=== PATIENT | female | born 1945 | race Caucasian/White ===

== ENCOUNTER 2017-09-07 08:22 | Emergency (ER) | payer OTHER, SELFPAY ==
[2017-09-07 08:24] VITALS: BP 169/93; PULSE 89; RESP 16; TEMP 36.5; O2SAT 97; BMI 31.1
[2017-09-07 09:07] LABS: Absolute Neutrophil Count 5.4 X10^3/uL (2.0-7.7); Basophil# 0.04 X10^3/uL; Basophil% 0.6 % (0-1); Eosinophil# 0.18 X10^3/uL; Eosinophils% 2.5 % (0-5); Hemoglobin 13.8 g/dl (12.0-15.0); Lymphocyte % 14.1 % (19-41); Mean Corp Hgb Conc 32.9 g/gl (32-36); Mean Corpuscular Hgb 29.3 pg (27.0-32.0); Mean Corpuscular Volume 89.2 fL (81-99); Mean Platelet Vol. 9.7 fl (6.2-12.0); Monocyte% 7.1 % (0-10); Neutrophil # 5.35 X10^3/uL (2.7-7.7); Neutrophil % 75.4 % (47-70); POSITIVE COUNT NO; POSITIVE DIFFERENTIAL NO; POSITIVE MORPHOLOGY NO; Platelet Count 365 K/mm3 (150-450); RBC Distribution Width CV 13.9 % (11.6-14.6); RBC Distribution Width SD 45.2 fl (35.1-43.9); Red Blood Count 4.71 M/mm3 (4.2-5.4); White Blood Count 7.1 K/mm3 (4.4-11.0)
[2017-09-07] MEDS: 0.9% Normal Saline 1,000 ML 1000 ML IV (09:20)
[2017-09-07 09:21] LABS: Anion Gap 7 (5-15); BUN 16 mg/dL (7-18); BUN/Creat Ratio 16.2 RATIO (10-20); Calcium,Total 8.9 mg/dL (8.5-10.1); Chloride 109 mmol/L (98-107); Creatinine, Serum 0.99 mg/dL (0.55-1.02); EST Glomerular Filtration Rate 59 mL/min (>60); Est Glom Filt Rate - Afr Amer 71 mL/min (>60); Estimated Creatinine Clearance 42.42 ml/min; Glucose 78 mg/dL (74-106); Sodium Level 141 mmol/L (136-145)
--- NOTE | 2017-09-07 09:21 | ED.RN ---
per verbal order of dr. srinivasan, immodium to be held until after stool sample obtained.
--- NOTE | 2017-09-07 09:30 | ED.VISSUMM ---
- ER Visit Summary Date of Service: 09/07/17 Chief Complaint: [Diarrhea] History of Present Illness: The patient is a 71 F [presents to the emergency department with diarrhea that started 4 days ago. Patient describes very frequent stools. Patient initially started taking Imodium for her watery stools and noticed that soon after there was some black discoloration to the stool almost coffee ground like. Patient then called the pharmacy and was told to use Imodium instead which she started doing and she states that that seems to have helped the diarrhea since yesterday. Patient denies any fevers. She denies recent antibiotic usage. She denies any recent travel. Patient denies eating any undercooked foods. Patient does not have a history of C. difficile. Patient's last colonoscopy was in June and patient was told she had diverticulosis. Patient denies any bright red blood per rectum.] Physical Examination: [HEENT-PERRLA, EOMI. Cranial nerves II through XII grossly intact. TMs clear. Mucous membranes moist. No adenopathy. Cardiovascular-regular rate and rhythm without murmur or ectopy Lungs-clear to auscultation, chest wall stable without crepitus or subcu emphysema Abdomen-normoactive bowel sounds, soft, nontender, no rebound or rigidity, no peritoneal signs. Extremities-intact ?4, normal range of motion, normal pulses, atraumatic] Test Results: [CBC with differential obtained showed a white count of 7.1, hemoglobin 13.8, hematocrit 42, platelets 365. Chemistries unremarkable. Stool culture, enteric pathogens, and C. difficile ordered however patient unable to give a stool sample in the emergency department.] Emergency Department Course and Treatment: [Patient received a liter normal same fluid bolus] Treatment Plan: [Patient will be given a lab slip to bring in a stool sample. Patient given a prescription for Lomotil] Disposition: Discharged to home in stable condition [. Patient to return if fever, worsening abdominal pain, dehydration, or condition should worsen in any way.] Impression: [Diarrhea-etiology uncertain] This note was generated with [employer] dictation software. It may contain incorrect words, spelling, and punctuation that were not noted in review of the chart prior to signing ED Disposition - Plan for ED Patient: Chief Complaint: Diarrhea Referrals: Chevy Matthew [Primary Care Provider] -
--- NOTE | 2017-09-07 09:33 | ED.DEP ---
ED Disposition - Plan for ED Patient: Chief Complaint: Diarrhea Instructions: ED Gastroenteritis Report Pend Prescriptions: Diphenoxylate/Atrop [Lomotil] 1 tab PO 4X/DAY #20 tab Referrals: Chevy Matthew [Primary Care Provider] - 3-5 Days
[2017-09-07] MEDS: Loperamide 2 MG Capsule 4 MG PO (10:20)
== END 2017-09-07 10:23 | disposition home or self-care (01) ==
PROVIDERS: Emergency Provider Emergency Medicine; Family Provider Family Medicine; PCP Family Medicine
DX: R19.7 Diarrhea, unspecified (principal); I10 Essential (primary) hypertension; E78.00 Pure hypercholesterolemia, unspecified; M10.9 Gout, unspecified; K57.90 Diverticulosis of intestine, part unspecified, without perforation or abscess without bleeding
CPT/HCPCS: 80048; 82274; 85025; 87177; 87209; 87493; 87506; 99284; J7030; A4216

== ENCOUNTER 2018-03-25 15:24 | Inpatient (IN) | payer MEDICARE, BC, SELFPAY ==
[2018-03-25] VITALS (14 sets, daily range): BP systolic 133–193; BP diastolic 71–81; PULSE 78–124; RESP 20–34; TEMP 36.6–37.4; O2SAT 83–97; BMI 31.1; BMI 31.4
--- NOTE | 2018-03-25 15:34 | CT_ITS ---
STUDY: CTA CHEST REASON FOR EXAM: Female, 72 years old. Shortness of breath and cough x3 days RADIATION DOSAGE (If Supplied By Facility): CTDIvol = ( 13.67 ) mGy, DLP = ( 494.43 ) mGycm TECHNIQUE: The examination was performed with the intravenous administration of 100 ml of Isovue 370 contrast material. Post-processing of the angiographic images was performed, with multiplanar reformation and 3D reconstruction. Individualized dose optimization techniques were used for this CT. COMPARISON: None. FINDINGS: Multiple Occlusive filling defects noted within the lobar and segmental branches bilaterally, right greater than left. Normal enhancement of the bilateral peripheral pulmonary arteries. Normal thoracic aorta and visualized great vessels. There is no demonstrated aortic dissection. Normal heart and pericardium. Calcific coronary artery disease. Normal mediastinum. Normal hilar regions. Normal visualized trachea and bronchi. The lungs are well expanded. Normal pulmonary parenchyma. Normal pleura. 8 x 15 mm spiculated right perihilar lesion. Normal chest wall structures. Normal osseous structures. Normal visualized upper abdomen. CT/CTA Chest W/WO Contrast IMPRESSION: Extensive bilateral pulmonary emboli N.B. : The above information has been verbally conveyed by Eric Vela MD to Devin Evans MD, on 03/25/2018 16:59:27 (ET). Electronically Signed: Eric Vela MD at 16:51 EST , Service support ,
--- NOTE | 2018-03-25 15:34 | EKG12_ITS ---
Test Reason : SOB Blood Pressure : / mmHG Vent. Rate : 114 BPM Atrial Rate : 114 BPM P-R Int : 160 ms QRS Dur : 072 ms QT Int : 324 ms P-R-T Axes : 063 054 093 degrees QTc Int : 446 ms Sinus tachycardia Possible Left atrial enlargement Nonspecific ST and T wave abnormality Abnormal ECG Confirmed by BYRON KIMBALL ([id number]), scientific publications editor KIERSTEN ARAGON ([id number]) on 03/29/2018 2:27:13 PM Referred By: JOEL Confirmed By:BYRON KIMBALL
--- NOTE | 2018-03-25 15:36 | ED.DCSUM_ITS ---
- ER Visit Summary Date of Service: 03/25/18 Chief Complaint: Shortness of breath History of Present Illness: The patient is a 72 F who presents with shortness of breath. She has had this for 3 days. She states that she has dyspnea with exertion. It does get better with rest. She has had a slight cough is not productive of sputum. When she does get short of breath and exerts herself she has tightness in the lower part of her chest. She did have asthma as a child but not as an adult. She denies fevers. No leg swelling. She has no DVT or PE risk factors. The patient has had multiple cardiac catheterizations due to a family history of cardiac disease. It was clean in 2014. Physical Examination: Vital signs reviewed. Heart rate is 130. Respiratory rate 34. HEENT exam is unremarkable. Heart is tachycardic and regular rhythm without murmurs. She is tachypneic but her lungs are clear. Abdomen is soft and nontender. Extremities reveal no edema. Pulses are equal. Neurologic exam normal. Test Results: EKG is sinus rhythm with rate of 114. There are T wave inversions laterally. Hemoglobin 15.4. Creatinine 1.27. Troponin is 0.037. Lactate normal. Patient had a CT of the chest which showed bilateral pulmonary emboli Emergency Department Course and Treatment: Patient was placed on supplemental oxygen due to a oxygen saturation of 83% on room air. I gave her one albuterol treatment with relief. CTA does reveal bilateral pulmonary emboli. There is no saddle component to this. Patient was with Lovenox. She will be admitted to the hospital Treatment Plan: [] Disposition: Admit Impression: Pulmonary embolism, bilateral; hypoxemia This note was generated with [employer] dictation software. It may contain incorrect words, spelling, and punctuation that were not noted in review of the chart prior to signing ED Disposition - Plan for ED Patient: Chief Complaint: Shortness of Breath Referrals: Chevy Matthew [Primary Care Provider] -
--- NOTE | 2018-03-25 15:38 | NURSING ---
NO OLD EKGS
[2018-03-25] MEDS: Albuterol 2.5 MG/3 ML VIAL.NEB. INHALATION (15:44)
[2018-03-25 15:58] LABS: Absolute Lymphocyte Count 2.09 X10^3/ul (0.83-4.51); Absolute Neutrophil Count 7.5 X10^3/uL (2.0-7.7); Basophil# 0.02 X10^3/uL; Basophil% 0.2 % (0-1); Eosinophil# 0.23 X10^3/uL; Eosinophils% 2.1 % (0-5); Hematocrit 47.9 % (37-47); Hemoglobin 15.4 g/dl (12.0-15.0); Lymphocyte # 2.09 X10^3/ul (4.0); Lymphocyte % 19.2 % (19-41); Mean Corp Hgb Conc 32.2 g/gl (32-36); Mean Corpuscular Hgb 28.4 pg (27.0-32.0); Mean Corpuscular Volume 88.4 fL (81-99); Mean Platelet Vol. 9.2 fl (6.2-12.0); Monocyte% 9.2 % (0-10); Neutrophil % 68.9 % (47-70); Platelet Count 276 K/mm3 (150-450); RBC Distribution Width CV 14.1 % (11.6-14.6); RBC Distribution Width SD 45.2 fl (35.1-43.9); Red Blood Count 5.42 M/mm3 (4.2-5.4); White Blood Count 10.9 K/mm3 (4.4-11.0)
[2018-03-25 15:59] LABS: POSITIVE COUNT NO; POSITIVE DIFFERENTIAL NO; POSITIVE MORPHOLOGY NO
[2018-03-25 16:10] LABS: Anion Gap 9 (5-15); BUN 30 mg/dL (7-18); BUN/Creat Ratio 23.6 RATIO (10-20); Calcium,Total 9.8 mg/dL (8.5-10.1); Chloride 105 mmol/L (98-107); Creatinine, Serum 1.27 mg/dL (0.55-1.02); EST Glomerular Filtration Rate 44 mL/min (>60); Est Glom Filt Rate - Afr Amer 54 mL/min (>60); Glucose 130 mg/dL (74-106); Sodium Level 138 mmol/L (136-145)
[2018-03-25 16:17] LABS: Lactic Acid 1.6 mmol/L (0.4-2.0)
--- NOTE | 2018-03-25 16:46 | NURSING ---
PCU PE, HYPOXIA WHITE
--- NOTE | 2018-03-25 16:54 | PCM.HP.STD ---
Problem List (1) Hypertension Status: Chronic (2) Hyperlipidemia Status: Chronic (3) Gout Status: Chronic History of Present Illness Date of Admission: 03/25/18 Chief Complaint: Shortness of breath The patient is a 72 year old F who presents emergency room due to shortness of breath. Patient states she has had ongoing shortness of breath for a few months which has increased in severity over the past 3 days. She also states she has been fighting a cold over the past week with postnasal drainage, cough and general malaise. She denies lower extremity swelling or calf discomfort. Complains of chest tightness. Denies dizziness, lightheadedness. Reports family members including patient's daughter and mother had blood clots in the past. From her report, they seem provoked following surgery/injury. She denies known clotting disorder in the family. Her past medical history includes hypertension, hyperlipidemia, gout. Past Medical History Past Medical History (Chronic Problems): Chronic Problems Hypertension (Chronic) Hyperlipidemia (Chronic) Gout (Chronic) Allergies estrogens, conjugated [From Premarin] Adverse Reaction (Verified 03/25/18 15:51) Other isosorbide [From Imdur] Adverse Reaction (Verified 03/25/18 15:51) Other levofloxacin [From Levaquin] Adverse Reaction (Verified 03/25/18 15:51) Other solifenacin [From Vesicare] Adverse Reaction (Verified 03/25/18 15:51) Other sulfamethoxazole [From Bactrim] Adverse Reaction (Verified 03/25/18 15:51) Other trimethoprim [From Bactrim] Adverse Reaction (Verified 03/25/18 15:51) Other Home Medications: Ambulatory Orders Medication Instructions Recorded Aspirin [Aspir-Low] 81 mg PO DAILY 09/07/17 Atorvastatin Calcium [Lipitor] 80 mg PO QHS 09/07/17 Fenofibrate,Micronized 134 mg PO DAILY 09/07/17 [Fenofibrate] Metoprolol Tartrate [Lopressor 50 mg PO BID 09/07/17 (Beta Lizette)] Phoenix-3 Fatty Acids [Fish Oil 1,000 mg PO DAILY 09/07/17 Concentrate] Pyridoxine HCl [Vitamin B-6] 100 mg PO DAILY 09/07/17 Venlafaxine HCl [Venlafaxine HCl 150 mg PO DAILY 09/07/17 ER] Daily Defense 2 cap PO DAILY 03/25/18 Fidelia C 1 tab PO DAILY 03/25/18 Surgical History: tonsillectomy, - - Tubal ligation, cataract surgery, skin biopsies Psychiatric History: No pertinent psych hx 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 Denies: Head Aches, Sinus Congestion, Sinus Drainage Cardiovascular: Reports: Chest Tightness. Denies: Chest Pain, Edema, Light Headedness, Palpitations, Syncope Respiratory: Reports: Cough, Shortness of Breath, Sputum production. Denies: Wheezing Gastrointestinal: Denies: Abdominal Pain, Nausea, Vomiting Genitourinary: Denies: Dysuria Musculoskeletal: Denies: Joint Pain, Joint Tenderness Skin: Denies: Rash, Wounds Neurological: Denies: Numbness, Tingling, Focal weakness Psychiatric: Denies: Anxiety, Depression, Homicidal Ideations, Suicidal Ideations Hematologic/ Lymphatic: Denies: Easy Bruising, Easy Bleeding VTE Information - Inpt Only VTE Present on Admission: Yes VTE Mechan Device Prophylaxis: None VTE Pharm Prophylaxis ordered?: Yes - Physical Exam General: Alert, Oriented x3, Cooperative, No apparent distress HEENT: Atraumatic, PERRLA, EOMI, Normocephalic Neck: Supple, No JVD, Negative Carotid Bruits Lungs: Clear to auscultation, Diminished, Tachypneic Cardiovascular: Regular Rhythm, Normal S1, Normal S2, No murmurs, Tachycardic Abdomen: Bowel Sounds Present, Soft, Non Tender, Non-Distended, Obese Extremities: No clubbing, No cyanosis, No edema, Capillary Refill Less than 3 Seconds Skin: No rashes, No breakdown Musculoskeletal: No Tenderness to Palpation of Joints or Extremities Neurological: Cranial nerves II-XII grossly intact, Neuro grossly intact Psych/Mental Status: Normal Affect, Appropriate Vital Signs Temp Pulse Resp BP Pulse Ox 97.8 F 113 H 24 H 164/75 H 91 03/25/18 15:25 03/25/18 15:40 03/25/18 15:40 03/25/18 15:25 03/25/18 16:00 Oxygen Flow Rate (L/min) 3 Oxygen Delivery Method Nasal Cannula Weight: 170 lb Body Mass Index (BMI) 31.1 Laboratory Tests Past 24 Hrs 03/25/18 03/25/18 03/25/18 15:45 15:45 15:45 WBC 10.9 RBC 5.42 H Hgb 15.4 H Hct 47.9 H MCV 88.4 MCH 28.4 MCHC 32.2 RDW 14.1 RDW Differential 45.2 H Plt Count 276 MPV 9.2 Immature Gran % (Auto) 0.400 Neut % (Auto) 68.9 Lymph % (Auto) 19.2 Schleicher % (Auto) 9.2 Eos % (Auto) 2.1 Baso % (Auto) 0.2 Absolute Neuts (auto) 7.5 Absolute Lymphs (auto) 2.09 Total Counted Not Reportable Sodium 138 Potassium 4.0 Chloride 105 Carbon Dioxide 24.0 Anion Gap 9 BUN 30 H Creatinine 1.27 H Estim Creat Clear Calc 32.60 Est GFR (MDRD) Af Amer 54 L Est GFR (MDRD) Non-Af 44 L BUN/Creatinine Ratio 23.6 H Glucose 130 H Lactic Acid 1.6 Calcium 9.8 Troponin I 0.037 B-Natriuretic Peptide 03/25/18 15:45 WBC RBC Hgb Hct MCV MCH MCHC RDW RDW Differential Plt Count MPV Immature Gran % (Auto) Neut % (Auto) Lymph % (Auto) Schleicher % (Auto) Eos % (Auto) Baso % (Auto) Absolute Neuts (auto) Absolute Lymphs (auto) Total Counted Sodium Potassium Chloride Carbon Dioxide Anion Gap BUN Creatinine Estim Creat Clear Calc Est GFR (MDRD) Af Amer Est GFR (MDRD) Non-Af BUN/Creatinine Ratio Glucose Lactic Acid Calcium Troponin I B-Natriuretic Peptide Pending Assessment/Plan 1. Acute extensive bilateral pulmonary emboli with associated acute hypoxia-CT of chest shows extensive bilateral pulmonary emboli. 8 x 15 mm spiculated right perihilar lesion. Patient reports sedentary lifestyle. No smoking history. No recent surgeries. Hypercoagulable panel completed in ER. Patient started on therapeutic Lovenox with plans for oral transition tomorrow. Obtain duplex ultrasound bilateral lower extremities. Continue supplement oxygen to maintain O2 at or above 90%. Complete walking pulse ox prior to discharge. Consult pulmonary medicine given pulmonary lesion. Patient reports SOB ongoing for a few months. BNP pending. Cycle enzymes. Repeat EKG in a.m. 2. Sinus tachycardia-secondary to 1. Continue home metoprolol regimen. 3. TRINA on CKD stage III-Gentle IV fluids. Trend BMP. 4. Hypertension-stable, continue home metoprolol regimen. 5. Hyperlipidemia-continue statin, fenofibrate. 6. Gout-states she takes fish oil supplementation for this. DVT prophylaxis-therapeutic Lovenox. This patient was seen by SRIRAM Jones under the supervision of Dr. Zeepda.
[2018-03-25] MEDS: Enoxaparin 80 MG/0.8 ML Syringe 77 MG SC (17:10)
--- NOTE | 2018-03-25 17:24 | ECHOD_ITS ---
Reason For Study: Emboli Procedure This was a 2D Doppler, Color Flow transthoracic echocardiogram. Unable to use Definity due to increased pressures. Exam performed portable in patient room. Left Ventricle Normal size and thickness. The estimated ejection fraction is 75 %. Stage 1 diastolic dysfunction. No regional wall motion abnormalities noted. Right Ventricle Normal size and thickness. Normal systolic function. Atria Normal left atrium. Normal right atrium. Normal atrial septum. Mitral Valve Mild diffuse mitral valve thickening. Mild mitral annular calcification extending into the posterior leaflet. Mild (1+) mitral valve insufficiency. Tricuspid Valve Normal tricuspid valve. Mild (1+) tricuspid valve insufficiency. Right ventricular systolic pressure estimated to be 90 mmHg. Severe pulmonary hypertension. Aortic Valve Normal aortic valve. Trisinus/trileaflet aortic valve. Pulmonic Valve Normal pulmonic valve. Great Vessels Normal aortic root. Normal arch. Normal inferior vena cava. Inferior vena cava collapse with sniff. Pericardium/Pleural No pericardial effusion. MMode/2D Measurements & Calculations LVIDd: 3.4 cm IVSd: 1.5 cm Ao root diam: 3.4 cm LVIDs: 1.9 cm LVPWd: 1.6 cm LA dimension: 4.3 cm RVDd: 3.0 cm FS: 45.3 % LAV(MOD-sp4): 39.6 ml LA A4 area: 16.2 cm2 RA A4 area: 13.4 cm2 Time Measurements MV dec time: 0.24 sec Doppler Measurements & Calculations MV E max hang: 59.9 cm/sec Lat Peak E' Hang: 7.0 cm/sec Med Peak E' Hang: 4.3 cm/sec MV A max hang: 114.7 cm/sec E/E' lat: 8.6 E/E' med: 13.8 MV E/A: 0.52 MV V2 max: 118.5 cm/sec MV P1/2t max hang: 101.2 cm/sec Ao V2 max: 157.9 cm/sec MV max P.6 mmHg MV P1/2t: 64.0 msec Ao max P.0 mmHg MV V2 mean: 66.4 cm/sec MV dec slope: 462.9 cm/sec2 Ao V2 mean: 122.2 cm/sec MV mean P.1 mmHg MVA(P1/2t): 3.4 cm2 Ao mean P.7 mmHg MV V2 VTI: 26.5 cm Ao V2 VTI: 35.6 cm LV V1 max: 144.5 cm/sec PA V2 max: 78.7 cm/sec TR max hang: 462.0 cm/sec LV V1 max P.4 mmHg TR max P.4 mmHg LV V1 mean P.5 mmHg LV V1 mean: 96.6 cm/sec LV V1 VTI: 28.9 cm Interpretation Summary The estimated ejection fraction is 75 %. Stage 1 diastolic dysfunction. Mild (1+) mitral valve insufficiency. Mild (1+) tricuspid valve insufficiency. Right ventricular systolic pressure estimated to be 90 mmHg. Severe pulmonary hypertension. Compared to echo report dated 03/28/2009, LV function has remained the samre, but pt now has severe pulmonary HTN. Ordering Physician: SRIRAM Jones Referring Physician: Chevy Matthew Performed By: William San RCS
[2018-03-25] MEDS: 0.9% Normal Saline 1,000 ML 75 ML IV (18:09)
[2018-03-25] MEDS: Metoprolol Tartrate 50 MG Tablet PO (20:15)
[2018-03-25] MEDS: Atorvastatin Calcium 80 MG Tablet PO (20:15)
[2018-03-25] MEDS: Acetaminophen 325 MG Tablet 650 MG PO (20:20)
[2018-03-25 21:27] LABS: Hemoglobin A1c 6.6 % (4.2-6.3)
[2018-03-26] VITALS (9 sets, daily range): BP systolic 159–162; BP diastolic 54–76; PULSE 36–93; RESP 18; TEMP 36.4–36.9; O2SAT 86–98
--- NOTE | 2018-03-26 02:14 | EKG12_ITS ---
Test Reason : RHY CHANGE Blood Pressure : / mmHG Vent. Rate : 080 BPM Atrial Rate : 080 BPM P-R Int : 194 ms QRS Dur : 074 ms QT Int : 386 ms P-R-T Axes : 050 047 143 degrees QTc Int : 445 ms Normal sinus rhythm Possible Left atrial enlargement T wave abnormality, consider lateral ischemia Abnormal ECG When compared with ECG of 25-MAR-2018 15:38, MANUAL COMPARISON REQUIRED, DATA IS UNCONFIRMED Confirmed by BYRON KIMBALL ([id number]), graphic editor KIERSTEN ARAGON ([id number]) on 03/29/2018 2:59:17 PM Referred By: NETO Confirmed By:BYRON KIMBALL
[2018-03-26 06:10] LABS: Anion Gap 9 (5-15); BUN 22 mg/dL (7-18); Calcium,Total 8.5 mg/dL (8.5-10.1); Chloride 107 mmol/L (98-107); Cholesterol 124 mg/dL (200); Creatinine, Serum 1.05 mg/dL (0.55-1.02); EST Glomerular Filtration Rate 55 mL/min (>60); Est Glom Filt Rate - Afr Amer 67 mL/min (>60); Estimated Creatinine Clearance 39.43 ml/min; Glucose 99 mg/dL (74-106); High Density Lipoprotein 30 mg/dL; Potassium 4.2 mmol/L (3.5-5.1); Sodium Level 142 mmol/L (136-145); Triglycerides 161 mg/dL; Very Low Density Lipoprotein 32 mg/dL (5-40)
[2018-03-26] MEDS: 0.9% Normal Saline 1,000 ML 75 ML IV (06:28)
--- NOTE | 2018-03-26 08:03 | CON.PCM_ITS ---
Reason for Consult Date of Consultation: 03/26/18 Reason for Consultation: Bilateral pulmonary emboli History of Present Illness: The patient is a 72-year-old female, with a history as outlined below, who presented to the emergency department on March 25 with complaints of progressive dyspnea over 3 days. The patient is a lifelong non-smoker and denies a history of COPD. She does report having been diagnosed with asthma as a child. She denies any recent immobility or prolonged travel. She denies a history of personal venous thromboembolic disease. However, she does report that her mother did have several blood clots throughout her life. On presentation to the emergency department, the patient was noted to be afebrile, mildly hypertensive, tachycardic and tachypneic and a bit hypoxic on room air. Laboratory evaluation revealed no evidence of a leukocytosis. Chemistry profile was notable for acute kidney injury with creatinine 1.27. Troponin was negative. BNP was 74. A CTA chest was obtained which revealed bilateral pulmonary emboli along with an 8 x 15 mm spiculated right perihilar lesion. The patient was subsequently started on anticoagulation regimen with Xarelto and admitted to the progressive care unit for ongoing management. Past Medical History Past Medical History (Chronic Problems): Chronic Problems Hypertension (Chronic) Hyperlipidemia (Chronic) Gout (Chronic) Allergies estrogens, conjugated [From Premarin] Adverse Reaction (Verified 03/25/18 15:51) Other isosorbide [From Imdur] Adverse Reaction (Verified 03/25/18 15:51) Other levofloxacin [From Levaquin] Adverse Reaction (Verified 03/25/18 15:51) Other solifenacin [From Vesicare] Adverse Reaction (Verified 03/25/18 15:51) Other sulfamethoxazole [From Bactrim] Adverse Reaction (Verified 03/25/18 15:51) Other trimethoprim [From Bactrim] Adverse Reaction (Verified 03/25/18 15:51) Other Home Medications: Ambulatory Orders Medication Instructions Recorded Aspirin [Aspir-Low] 81 mg PO DAILY 09/07/17 Atorvastatin Calcium [Lipitor] 80 mg PO QHS 09/07/17 Fenofibrate,Micronized 134 mg PO DAILY 09/07/17 [Fenofibrate] Metoprolol Tartrate [Lopressor 50 mg PO BID 09/07/17 (Beta Lizette)] [place]-3 Fatty Acids [Fish Oil 1,000 mg PO DAILY 09/07/17 Concentrate] Pyridoxine HCl [Vitamin B-6] 100 mg PO DAILY 09/07/17 Venlafaxine HCl [Venlafaxine HCl 150 mg PO DAILY 09/07/17 ER] Daily Defense 2 cap PO DAILY 03/25/18 Fidelia C 1 tab PO DAILY 03/25/18 Surgical History: tonsillectomy, - - Tubal ligation, cataract surgery, skin biopsies Psychiatric History: No pertinent psych hx [employer] History: No pertinent [employer] history Lives: Spouse/ Significant Other Smoking Status: Never smoker Tobacco Use: Secondhand Alcohol: None Drugs: None - *Family History Maternal History Items: Heart Disease Paternal History Items: Heart Disease Review of Systems Constitutional: Denies: Chills, Fever Eyes: Denies: Blurred vision, Double vision HEENT: Denies: Head Aches, Sinus Congestion, Sinus Drainage Cardiovascular: Reports: Chest Pain Respiratory: Reports: Shortness of Breath. Denies: Sputum production, Wheezing Gastrointestinal: Denies: Abdominal Pain, Nausea, Vomiting Genitourinary: Denies: Dysuria Musculoskeletal: Denies: Joint Pain, Joint Tenderness Skin: Denies: Rash, Wounds Neurological: Denies: Numbness, Tingling, Focal weakness Psychiatric: Denies: Anxiety, Depression, Homicidal Ideations, Suicidal Ideations Hematologic/ Lymphatic: Denies: Easy Bruising, Easy Bleeding Objective: The patient's most recent lab work, culture data and imaging studies have all been personally reviewed. - Physical Exam General: Alert, Oriented x3, Cooperative, No apparent distress HEENT: Atraumatic, PERRLA, Normocephalic Oral: Moist Mucosa, No Gingival or Mucosal Lesions/ Ulcerations Neck: Supple, No Nodes, Trachea Midline Lungs: No rhonchi, No wheeze, No rales, Diminished Cardiovascular: Regular rate, Regular Rhythm, Normal S1, Normal S2, No murmurs Abdomen: Bowel Sounds Present, Soft, Non Tender Extremities: No clubbing, No cyanosis, No edema Skin: No breakdown Musculoskeletal: No Tenderness to Palpation of Joints or Extremities, No Muscle Wasting Lymphatic: No Cervical, Supraclavicular, or Inguinal Adenopathy Neurological: Cranial nerves II-XII grossly intact, Neuro grossly intact Psych/Mental Status: Alert and oriented to time, place, person, mood and affect Vital Signs Temp Pulse Resp BP Pulse Ox 36.9 C 86 18 159/76 H 90 03/26/18 02:25 03/26/18 07:00 03/26/18 02:25 03/26/18 02:25 03/26/18 07:25 Oxygen Flow Rate (L/min) 3 Oxygen Delivery Method Nasal Cannula Weight: 171 lb 11.841 oz Body Mass Index (BMI) 31.4 Intake and Output for Last 24 Hours 03/24/18 03/25/18 03/26/18 23:59 23:59 23:59 Intake Total 1029 / 1029 522 / 522 Balance 1029 / 1029 522 / 522 Laboratory Tests Past 24 Hrs 03/25/18 03/25/18 03/25/18 15:45 15:45 15:45 WBC 10.9 RBC 5.42 H Hgb 15.4 H Hct 47.9 H MCV 88.4 MCH 28.4 MCHC 32.2 RDW 14.1 RDW Differential 45.2 H Plt Count 276 MPV 9.2 Immature Gran % (Auto) 0.400 Neut % (Auto) 68.9 Lymph % (Auto) 19.2 [place] % (Auto) 9.2 Eos % (Auto) 2.1 Baso % (Auto) 0.2 Absolute Neuts (auto) 7.5 Absolute Lymphs (auto) 2.09 Total Counted Not Reportable Protein C Antigen Functional Protein C Prot C Funct Activity Antithrombin III Ag Func Antithrombin III Factor V Leiden Mutat Sodium 138 Potassium 4.0 Chloride 105 Carbon Dioxide 24.0 Anion Gap 9 BUN 30 H Creatinine 1.27 H Estim Creat Clear Calc 32.60 Est GFR (MDRD) Af Amer 54 L Est GFR (MDRD) Non-Af 44 L BUN/Creatinine Ratio 23.6 H Glucose 130 H Hemoglobin A1c Lactic Acid 1.6 Calcium 9.8 Magnesium Troponin I 0.037 B-Natriuretic Peptide Triglycerides Cholesterol LDL Cholesterol VLDL Cholesterol HDL Cholesterol Beta-2-GPI IgG Ab Beta-2-GPI IgA Ab Beta-2-GPI IgM Ab Anti-Cardiolipin IgG Ab Anti-Cardiolipin IgM Ab Factor II DNA Analysis Miscellaneous Test 03/25/18 03/25/18 03/25/18 15:45 15:45 17:03 WBC RBC Hgb Hct MCV MCH MCHC RDW RDW Differential Plt Count MPV Immature Gran % (Auto) Neut % (Auto) Lymph % (Auto) [place] % (Auto) Eos % (Auto) Baso % (Auto) Absolute Neuts (auto) Absolute Lymphs (auto) Total Counted Protein C Antigen Pending Functional Protein C Pending Prot C Funct Activity Pending Antithrombin III Ag Pending Func Antithrombin III Pending Factor V Leiden Mutat Pending Sodium Potassium Chloride Carbon Dioxide Anion Gap BUN Creatinine Estim Creat Clear Calc Est GFR (MDRD) Af Amer Est GFR (MDRD) Non-Af BUN/Creatinine Ratio Glucose Hemoglobin A1c Lactic Acid Calcium Magnesium 2.0 Troponin I B-Natriuretic Peptide 74.0 Triglycerides Cholesterol LDL Cholesterol VLDL Cholesterol HDL Cholesterol Beta-2-GPI IgG Ab Pending Beta-2-GPI IgA Ab Pending Beta-2-GPI IgM Ab Pending Anti-Cardiolipin IgG Ab Pending Anti-Cardiolipin IgM Ab Pending Factor II DNA Analysis Pending Miscellaneous Test 03/25/18 03/25/18 03/25/18 17:03 21:00 21:00 WBC RBC Hgb Hct MCV MCH MCHC RDW RDW Differential Plt Count MPV Immature Gran % (Auto) Neut % (Auto) Lymph % (Auto) [place] % (Auto) Eos % (Auto) Baso % (Auto) Absolute Neuts (auto) Absolute Lymphs (auto) Total Counted Protein C Antigen Functional Protein C Prot C Funct Activity Antithrombin III Ag Func Antithrombin III Factor V Leiden Mutat Sodium Potassium Chloride Carbon Dioxide Anion Gap BUN Creatinine Estim Creat Clear Calc Est GFR (MDRD) Af Amer Est GFR (MDRD) Non-Af BUN/Creatinine Ratio Glucose Hemoglobin A1c 6.6 H Lactic Acid Calcium Magnesium Troponin I 0.034 B-Natriuretic Peptide Triglycerides Cholesterol LDL Cholesterol VLDL Cholesterol HDL Cholesterol Beta-2-GPI IgG Ab Beta-2-GPI IgA Ab Beta-2-GPI IgM Ab Anti-Cardiolipin IgG Ab Anti-Cardiolipin IgM Ab Factor II DNA Analysis Miscellaneous Test Pending 03/25/18 03/26/18 23:55 05:25 WBC RBC Hgb Hct MCV MCH MCHC RDW RDW Differential Plt Count MPV Immature Gran % (Auto) Neut % (Auto) Lymph % (Auto) [place] % (Auto) Eos % (Auto) Baso % (Auto) Absolute Neuts (auto) Absolute Lymphs (auto) Total Counted Protein C Antigen Functional Protein C Prot C Funct Activity Antithrombin III Ag Func Antithrombin III Factor V Leiden Mutat Sodium 142 Potassium 4.2 Chloride 107 Carbon Dioxide 26.0 Anion Gap 9 BUN 22 H Creatinine 1.05 H Estim Creat Clear Calc 39.43 Est GFR (MDRD) Af Amer 67 Est GFR (MDRD) Non-Af 55 L BUN/Creatinine Ratio 21.0 H Glucose 99 Hemoglobin A1c Lactic Acid Calcium 8.5 Magnesium Troponin I 0.039 B-Natriuretic Peptide Triglycerides 161 Cholesterol 124 LDL Cholesterol 62 VLDL Cholesterol 32 HDL Cholesterol 30 L Beta-2-GPI IgG Ab Beta-2-GPI IgA Ab Beta-2-GPI IgM Ab Anti-Cardiolipin IgG Ab Anti-Cardiolipin IgM Ab Factor II DNA Analysis Miscellaneous Test Clinical Impression(s) from Imaging Studies Chest CTA 03/25/18 15:34 IMPRESSION: Extensive bilateral pulmonary emboli N.B. : The above information has been verbally conveyed by Eric Vela MD to Devin Evans MD, on 03/25/2018 16:59:27 (ET). Electronically Signed: Eric Vela MD at 16:51 EST , Service support , Assessment/Plan RECOMMENDATIONS: 1. Okay to discharge on Xarelto from my perspective. 2. Perform walking oximetry study prior to consideration for discharge from the hospital. 3. Recommend repeating CT chest in 3 months. 4. The patient is to follow up in the pulmonary medicine clinic in 2 weeks with our nurse practitioner. IMPRESSIONS: 1. Acute hypoxic respiratory insufficiency secondary to bilateral pulmonary emboli The patient presented to the ED with shortness of breath in the setting of unprovoked bilateral pulmonary emboli. She was never hemodynamically unstable. She has been started on Xarelto at this time. Recommend continuing for 3-6 months uninterrupted. I see no indication in obtaining an echocardiogram or lower extremity Dopplers. Would recommend performing a walking oximetry study prior to consideration for discharge from the hospital. Hypercoagulable panel was obtained prior to the initiation of anticoagulation and is currently pending. 2. Nonspecific pulmonary nodule The patient's CTA chest was personally reviewed. The right perihilar region is not quite solid in nature, and is therefore indeterminate. I would recommend that the patient have a repeat CT chest in 3 months for further evaluation. 3. Depression/hyperlipidemia/hypertension Complicates care, management, recovery and prognosis. Likely okay to continue home medications. This note was generated with [employer] dictation software. It may contain incorrect words, spelling, and punctuation that were not noted in checking the note before signing. Code Visit Inpatient E&M: 63745 Init Hosp L3
[2018-03-26] MEDS: Omega-3 Acid Ethyl Esters 1 GM Capsule PO (08:58)
[2018-03-26] MEDS: Aspirin E.C. 81 MG Tablet PO (08:58)
[2018-03-26] MEDS: Fenofibrate 145 MG Tablet PO (08:58)
[2018-03-26] MEDS: Rivaroxaban 15 MG Tablet PO (08:59)
[2018-03-26] MEDS: Metoprolol Tartrate 50 MG Tablet PO (08:59)
[2018-03-26] MEDS: Venlafaxine XR 150 MG Capsule PO (08:59)
--- NOTE | 2018-03-26 11:04 | CASEMGMT ---
ANTWON CAMACHO assessment: Face to Face with patient for initial transition planning/care coordination assessment. ANTWON CAMACHO introduced self and role at [facility], pt voices understanding and consents to assessment at this time. Pt is sitting up in chair in no distress at this time. Pt is A/O x4 at this time and answers all questions appropriately at this time. Pt's is at bedside during assessment. Care providers, pharmacy, and demographics verified/updated at this time. PCP: Tiff Specialists: Pt states no current specialists at this time. Preferred Pharmacy: [facility] Insurance: [facility] A/B, AnthR Prescription Benefit: AnthR Living Will/HPOA: Pt states has LW/HPOA but they are not currently on file at [facility] at this time. Pt is aware. LNOK: Augusto Cummings, Living Arrangements: Pt states lives with in 1 story home with 2 steps in and states no concerns at this time. Pt states no concerns with ADL's at this time. Transportation: Pt states drives self and states no transportation concerns at this time. DME/HHC: Pt states has the following DME: grab bars, shower chair, cane, raised toilet seat, BP cuff, and nebulizer. Pt states if needs home oxygen at discharge then she would like [employer]. Pt states no hx of HHC or SNF in the past. Per Talya KAPOOR, pt did qualify for oxygen at this time. Referral faxed to [employer] at this time. Pt states no concerns with going home at time of discharge. Pt states does not smoke or drink ETOH. Pt advised that she will be going home on anti-coagulant and this RN JANICE will check coverage/co-pay prior to discharge, voices understanding. Pt voices no further questions/concerns/needs at this time. CM to follow for any further discharge planning/needs. Advised pt to ask for CM if any further questions/concerns/needs arise, voices understanding. Plan: [place] ANTWON CAMACHO
--- NOTE | 2018-03-26 11:28 | PCM.DC ---
- Discharge Diagnoses Current Active Problems: Current Active and Chronic Problems Bilateral Pulmonary Embolism Hypertension (Chronic) Hyperlipidemia (Chronic) Gout (Chronic) You will use the following diet at home:: Calorie/Carbohydrate Controlled (specify 1200, 1400, etc) Discharge Activity: Return to Normal Activity Call your doctor if you observe: Shortness of breath, Dizziness, Fainting spells, Chest pain Allergies/Adverse Reactions: Allergies estrogens, conjugated [From Premarin] Adverse Reaction (Verified 03/25/18 15:51) Other isosorbide [From Imdur] Adverse Reaction (Verified 03/25/18 15:51) Other levofloxacin [From Levaquin] Adverse Reaction (Verified 03/25/18 15:51) Other solifenacin [From Vesicare] Adverse Reaction (Verified 03/25/18 15:51) Other sulfamethoxazole [From Bactrim] Adverse Reaction (Verified 03/25/18 15:51) Other trimethoprim [From Bactrim] Adverse Reaction (Verified 03/25/18 15:51) Other Medications to take at Discharge Aspirin [Aspir-Low] 81 mg PO DAILY 09/07/17 Atorvastatin Calcium [Lipitor] 80 mg PO QHS 09/07/17 Fenofibrate,Micronized [Fenofibrate] 134 mg PO DAILY 09/07/17 Metoprolol Tartrate [Lopressor (beta eleanor)] 50 mg PO BID 09/07/17 [place]-3 Fatty Acids [Fish Oil Concentrate] 1,000 mg PO DAILY 09/07/17 Pyridoxine HCl [Vitamin B-6] 100 mg PO DAILY 09/07/17 Venlafaxine HCl [Venlafaxine HCl ER] 150 mg PO DAILY 09/07/17 Daily Defense 2 cap PO DAILY 03/25/18 Fidelia C 1 tab PO DAILY 03/25/18 Glipizide [Glipizide ER] 2.5 mg PO DAILY #30 tab.er.24 03/26/18 Rivaroxaban [Xarelto] 15 mg PO BIDCM #41 tablet 03/26/18 The following prescriptions were given: Glipizide [Glipizide ER] 2.5 mg PO DAILY #30 tab.er.24 Rivaroxaban [Xarelto] 15 mg PO BIDCM #41 tablet Primary Care Physician: Chevy Matthew [Primary Care Provider] - Please follow up with your Primary Care Physician in: 1 Week Test Results: Test results from this visit will be discussed in further detail at your follow-up appointment, if applicable. Please Follow Up With: Esau Ghotra DO When: 2 Weeks Proposed Discharge Date: 03/26/18
--- NOTE | 2018-03-26 11:32 | DCINST_ITS ---
- Discharge Diagnoses Current Active Problems: Current Active and Chronic Problems Bilateral Pulmonary Embolism Hypertension (Chronic) Hyperlipidemia (Chronic) Gout (Chronic) You will use the following diet at home:: Calorie/Carbohydrate Controlled (specify 1200, 1400, etc) Discharge Activity: Return to Normal Activity Call your doctor if you observe: Shortness of breath, Dizziness, Fainting spells, Chest pain Allergies/Adverse Reactions: Allergies estrogens, conjugated [From Premarin] Adverse Reaction (Verified 03/25/18 15:51) Other isosorbide [From Imdur] Adverse Reaction (Verified 03/25/18 15:51) Other levofloxacin [From Levaquin] Adverse Reaction (Verified 03/25/18 15:51) Other solifenacin [From Vesicare] Adverse Reaction (Verified 03/25/18 15:51) Other sulfamethoxazole [From Bactrim] Adverse Reaction (Verified 03/25/18 15:51) Other trimethoprim [From Bactrim] Adverse Reaction (Verified 03/25/18 15:51) Other Medications to take at Discharge Aspirin [Aspir-Low] 81 mg PO DAILY 09/07/17 Atorvastatin Calcium [Lipitor] 80 mg PO QHS 09/07/17 Fenofibrate,Micronized [Fenofibrate] 134 mg PO DAILY 09/07/17 Metoprolol Tartrate [Lopressor (beta eleanor)] 50 mg PO BID 09/07/17 [place]-3 Fatty Acids [Fish Oil Concentrate] 1,000 mg PO DAILY 09/07/17 Pyridoxine HCl [Vitamin B-6] 100 mg PO DAILY 09/07/17 Venlafaxine HCl [Venlafaxine HCl ER] 150 mg PO DAILY 09/07/17 Daily Defense 2 cap PO DAILY 03/25/18 Fidelia C 1 tab PO DAILY 03/25/18 Glipizide [Glipizide ER] 2.5 mg PO DAILY #30 tab.er.24 03/26/18 Rivaroxaban [Xarelto] 15 mg PO BIDCM #41 tablet 03/26/18 The following prescriptions were given: Glipizide [Glipizide ER] 2.5 mg PO DAILY #30 tab.er.24 Rivaroxaban [Xarelto] 15 mg PO BIDCM #41 tablet Primary Care Physician: Chevy Matthew [Primary Care Provider] - Please follow up with your Primary Care Physician in: 1 Week Test Results: Test results from this visit will be discussed in further detail at your follow- up appointment, if applicable. Please Follow Up With: Esau Ghotra DO When: 2 Weeks Proposed Discharge Date: 03/26/18
--- NOTE | 2018-03-26 11:43 | DS.PCM_ITS ---
Addendum entered and electronically signed by SRIRAM Jones 03/26/18 12:09: Code Visit Due to cost of medication, patient was switched from Xarelto to Eliquis at discharge. She will take Eliquis 10 mg twice daily for 7 days followed by Eliquis 5 mg twice daily thereafter. Original Note: <Chantale Munroe - Last Filed: 03/26/18 12:09> Discharge Date and Diagnosis Date of Admission: 03/25/18 Date of Discharge: 03/26/18 - Primary Discharge Diagnosis 1. Acute extensive bilateral pulmonary embolism with associated acute hypoxic respiratory insufficiency and acute left lower extremity DVT 2. Sinus tachycardia, secondary to #1 3. New diagnosis type 2 diabetes mellitus 4. Hypertension, poorly controlled 5. Hyperlipidemia 6. Chronic kidney disease stage III 7. Gout - Secondary Discharge Diagnosis Chronic Problems Hypertension (Chronic) Hyperlipidemia (Chronic) Gout (Chronic) Hospital Course and Treatment Imaging Results: Diagnostic Data Chest CTA 03/25/18 15:34 IMPRESSION: Extensive bilateral pulmonary emboli N.B. : The above information has been verbally conveyed by Eric Vela MD to Devin Evans MD, on 03/25/2018 16:59:27 (ET). Electronically Signed: Eric Vela MD at 16:51 EST , Service support , Dr. Ghotra- Pulmonary Medicine Operations: None Procedures: 2-D Echocardiogram Summary of Care Provided: The patient is a 72 year old F admitted 03/25/2018 due to shortness of breath. 1. Acute extensive bilateral pulmonary emboli with associated acute hypoxia-CT of chest shows extensive bilateral pulmonary emboli. 8 x 15 mm spiculated right perihilar lesion. Patient reports sedentary lifestyle. No smoking history. No recent surgeries. Hypercoagulable panel completed in ER. Duplex ultrasound po sitive for left lower extremity DVT. Patient will require supplemental oxygen at discharge. She will continue supplement oxygen to maintain O2 at or above 90%. She is ambulatory in the home. Pulmonary medicine consulted due to pulmonary lesion as noted above. Patient will have repeat CT of chest as outpatient in 3 months. Follow-up with pulmonary medicine in 2 weeks. Echocardiogram completed and will reviewed prior to discharge. Patient discharged on Xarelto 15 mg twice a day which she will continue for 21 days. Following 21 days, patient will take Xarelto 20 mg daily which will be further prescribed by primary care physician. Follow-up with primary care physician in 1 week. 2. Sinus tachycardia-secondary to 1. Resolved. Continue home metoprolol regimen. 3. CKD stage III-stable. 4. Hypertension-elevated during admission. Continue home metoprolol regimen. Recent started on amlodipine 5 mg daily. Patient will need further monitoring as outpatient with adjustment as found appropriate. 5. Hyperlipidemia-continue statin, fenofibrate. 6. Gout-states she takes fish oil supplementation for this. 7. New diagnosis type 2 diabetes mellitus-hemoglobin A1c 6.6%. Patient started on low-dose glipizide 2.5 mg daily. Recommend repeat hemoglobin A1c by primary care physician. Recommend carb control diet. General: Alert, Oriented x3, Cooperative, No apparent distress HEENT: Atraumatic, PERRLA, EOMI, Normocephalic Neck: Supple, No JVD, Negative Carotid Bruits Lungs: Clear to auscultation, Diminished, Tachypneic Cardiovascular: Regular Rhythm, Normal S1, Normal S2, No murmurs, Tachycardic Abdomen: Bowel Sounds Present, Soft, Non Tender, Non-Distended, Obese Extremities: No clubbing, No cyanosis, No edema, Capillary Refill Less than 3 Seconds Skin: No rashes, No breakdown Musculoskeletal: No Tenderness to Palpation of Joints or Extremities Neurological: Cranial nerves II-XII grossly intact, Neuro grossly intact Psych/Mental Status: Normal Affect, Appropriate Patient seen exam prior to discharge. Physical assessment as noted above. Patient is stable for discharge home with the follow-up her conditions as noted above. This patient was seen by SRIRAM Jones under the supervision of Dr. Moran. - Physical Exam Vital Signs Temp Pulse Resp BP Pulse Ox 97.6 F L 88 18 162/54 H 91 03/26/18 09:00 03/26/18 11:00 03/26/18 09:00 03/26/18 09:00 03/26/18 11:33 Oxygen Flow Rate (L/min) [ 3 AMBULATION with Oxygen] Oxygen Flow Rate (L/min) 3 Oxygen Delivery Method Room Air Weight: 171 lb 11.841 oz Body Mass Index (BMI) 31.4 Intake and Output for Last 24 Hours 03/24/18 03/25/18 03/26/18 23:59 23:59 23:59 Intake Total 1029 / 1029 522 / 522 Balance 1029 / 1029 522 / 522 Laboratory Tests Past 24 Hrs 03/25/18 03/25/18 03/25/18 15:45 15:45 15:45 WBC 10.9 RBC 5.42 H Hgb 15.4 H Hct 47.9 H MCV 88.4 MCH 28.4 MCHC 32.2 RDW 14.1 RDW Differential 45.2 H Plt Count 276 MPV 9.2 Immature Gran % (Auto) 0.400 Neut % (Auto) 68.9 Lymph % (Auto) 19.2 Emanuel % (Auto) 9.2 Eos % (Auto) 2.1 Baso % (Auto) 0.2 Absolute Neuts (auto) 7.5 Absolute Lymphs (auto) 2.09 Total Counted Not Reportable Protein C Antigen Functional Protein C Prot C Funct Activity Antithrombin III Ag Func Antithrombin III Factor V Leiden Mutat Sodium 138 Potassium 4.0 Chloride 105 Carbon Dioxide 24.0 Anion Gap 9 BUN 30 H Creatinine 1.27 H Estim Creat Clear Calc 32.60 Est GFR (MDRD) Af Amer 54 L Est GFR (MDRD) Non-Af 44 L BUN/Creatinine Ratio 23.6 H Glucose 130 H Hemoglobin A1c Lactic Acid 1.6 Calcium 9.8 Magnesium Troponin I 0.037 B-Natriuretic Peptide Triglycerides Cholesterol LDL Cholesterol VLDL Cholesterol HDL Cholesterol Beta-2-GPI IgG Ab Beta-2-GPI IgA Ab Beta-2-GPI IgM Ab Anti-Cardiolipin IgG Ab Anti-Cardiolipin IgM Ab Factor II DNA Analysis Miscellaneous Test 03/25/18 03/25/18 03/25/18 15:45 15:45 17:03 WBC RBC Hgb Hct MCV MCH MCHC RDW RDW Differential Plt Count MPV Immature Gran % (Auto) Neut % (Auto) Lymph % (Auto) Emanuel % (Auto) Eos % (Auto) Baso % (Auto) Absolute Neuts (auto) Absolute Lymphs (auto) Total Counted Protein C Antigen Pending Functional Protein C Pending Prot C Funct Activity Pending Antithrombin III Ag Pending Func Antithrombin III Pending Factor V Leiden Mutat Pending Sodium Potassium Chloride Carbon Dioxide Anion Gap BUN Creatinine Estim Creat Clear Calc Est GFR (MDRD) Af Amer Est GFR (MDRD) Non-Af BUN/Creatinine Ratio Glucose Hemoglobin A1c Lactic Acid Calcium Magnesium 2.0 Troponin I B-Natriuretic Peptide 74.0 Triglycerides Cholesterol LDL Cholesterol VLDL Cholesterol HDL Cholesterol Beta-2-GPI IgG Ab Pending Beta-2-GPI IgA Ab Pending Beta-2-GPI IgM Ab Pending Anti-Cardiolipin IgG Ab Pending Anti-Cardiolipin IgM Ab Pending Factor II DNA Analysis Pending Miscellaneous Test 03/25/18 03/25/18 03/25/18 17:03 21:00 21:00 WBC RBC Hgb Hct MCV MCH MCHC RDW RDW Differential Plt Count MPV Immature Gran % (Auto) Neut % (Auto) Lymph % (Auto) Emanuel % (Auto) Eos % (Auto) Baso % (Auto) Absolute Neuts (auto) Absolute Lymphs (auto) Total Counted Protein C Antigen Functional Protein C Prot C Funct Activity Antithrombin III Ag Func Antithrombin III Factor V Leiden Mutat Sodium Potassium Chloride Carbon Dioxide Anion Gap BUN Creatinine Estim Creat Clear Calc Est GFR (MDRD) Af Amer Est GFR (MDRD) Non-Af BUN/Creatinine Ratio Glucose Hemoglobin A1c 6.6 H Lactic Acid Calcium Magnesium Troponin I 0.034 B-Natriuretic Peptide Triglycerides Cholesterol LDL Cholesterol VLDL Cholesterol HDL Cholesterol Beta-2-GPI IgG Ab Beta-2-GPI IgA Ab Beta-2-GPI IgM Ab Anti-Cardiolipin IgG Ab Anti-Cardiolipin IgM Ab Factor II DNA Analysis Miscellaneous Test Pending 03/25/18 03/26/18 23:55 05:25 WBC RBC Hgb Hct MCV MCH MCHC RDW RDW Differential Plt Count MPV Immature Gran % (Auto) Neut % (Auto) Lymph % (Auto) Emanuel % (Auto) Eos % (Auto) Baso % (Auto) Absolute Neuts (auto) Absolute Lymphs (auto) Total Counted Protein C Antigen Functional Protein C Prot C Funct Activity Antithrombin III Ag Func Antithrombin III Factor V Leiden Mutat Sodium 142 Potassium 4.2 Chloride 107 Carbon Dioxide 26.0 Anion Gap 9 BUN 22 H Creatinine 1.05 H Estim Creat Clear Calc 39.43 Est GFR (MDRD) Af Amer 67 Est GFR (MDRD) Non-Af 55 L BUN/Creatinine Ratio 21.0 H Glucose 99 Hemoglobin A1c Lactic Acid Calcium 8.5 Magnesium Troponin I 0.039 B-Natriuretic Peptide Triglycerides 161 Cholesterol 124 LDL Cholesterol 62 VLDL Cholesterol 32 HDL Cholesterol 30 L Beta-2-GPI IgG Ab Beta-2-GPI IgA Ab Beta-2-GPI IgM Ab Anti-Cardiolipin IgG Ab Anti-Cardiolipin IgM Ab Factor II DNA Analysis Miscellaneous Test Discharge Diet: Carb Control Diet Discharge Activity: Return to Normal Activity Call your doctor if you observe: Shortness of breath, Dizziness, Fainting spells, Chest pain Home Medications: Medications to take at Discharge Aspirin [Aspir-Low] 81 mg PO DAILY 09/07/17 Atorvastatin Calcium [Lipitor] 80 mg PO QHS 09/07/17 Fenofibrate,Micronized [Fenofibrate] 134 mg PO DAILY 09/07/17 Metoprolol Tartrate [Lopressor (beta eleanor)] 50 mg PO BID 09/07/17 [place]-3 Fatty Acids [Fish Oil Concentrate] 1,000 mg PO DAILY 09/07/17 Pyridoxine HCl [Vitamin B-6] 100 mg PO DAILY 09/07/17 Venlafaxine HCl [Venlafaxine HCl ER] 150 mg PO DAILY 09/07/17 Daily Defense 2 cap PO DAILY 03/25/18 Fidelia C 1 tab PO DAILY 03/25/18 Amlodipine [Norvasc] 5 mg PO DAILY #30 tablet 03/26/18 Apixaban [Eliquis] 5 mg PO BID #70 tablet 03/26/18 Glipizide [Glipizide ER] 2.5 mg PO DAILY #30 tab.er.24 03/26/18 Following Prescrptions Were Given to Patient: Amlodipine [Norvasc] 5 mg PO DAILY #30 tablet Apixaban [Eliquis] 5 mg PO BID #70 tablet Glipizide [Glipizide ER] 2.5 mg PO DAILY #30 tab.er.24 Primary Care Physician: Chevy Matthew [Primary Care Provider] - Please follow up with your Primary Care Physician in: 1 Week Please Follow Up With: Esau Ghotra DO When: 2 Weeks Disposition: Home Minutes spent on discharge:: 35 Patient Condition:: Stable Medical Necessity - Tobacco Use Smoking Status: Never smoker Tobacco Use: Secondhand Meaningful Use Info Meaningful Use Diagnoses (Choose all that apply): VTE - VTE Anticoag overlap given w/in hospital stay or rx'd at dc?: Yes Pt receive overlap for 5 days?: Yes <Frank Moran - Last Filed: 03/26/18 12:48> Discharge Date and Diagnosis - Secondary Discharge Diagnosis Chronic Problems Hypertension (Chronic) Hyperlipidemia (Chronic) Gout (Chronic) Hospital Course and Treatment Summary of Care Provided: This patient was seen in conjunction with SRIRAM Jones . I have independently interviewed and examined the patient and reviewed pertinent historical, laboratory, and other data. Please refer to SRIRAM Jones note for details of this patient's presentation, findings, and recommendations. I have reviewed SRIRAM Jones note and concur with documented findings. In brief, patient is a 72-year-old lady who presented with shortness of breath. Her diagnostic workup was consistent with acute extensive bilateral pulmonary embolism as well as DVT involving the left peroneal vein. Admitted to a monitored bed started on systemic anticoagulation. Patient condition did remain stable for discharge a day after her admission on Xarelto Patient was seen and examined on the day of her discharge; she appears comfortable at rest lungs diminished to auscultation no wheezes. Hospital course as elicited above by Chantale Munroe next Time spent on discharge process including going over her medications and instructions; 35 minutes - Physical Exam Vital Signs Temp Pulse Resp BP Pulse Ox 97.6 F L 88 18 162/54 H 91 03/26/18 09:00 03/26/18 11:00 03/26/18 09:00 03/26/18 09:00 03/26/18 11:33 Oxygen Flow Rate (L/min) [ 3 AMBULATION with Oxygen] Oxygen Flow Rate (L/min) 3 Oxygen Delivery Method Room Air Weight: 77.9 kg Body Mass Index (BMI) 31.4 Intake and Output for Last 24 Hours 03/24/18 03/25/18 03/26/18 23:59 23:59 23:59 Intake Total 1029 / 1029 1297 / 1297 Balance 1029 / 1029 1297 / 1297 Laboratory Tests Past 24 Hrs 03/25/18 03/25/18 03/25/18 15:45 15:45 15:45 WBC 10.9 RBC 5.42 H Hgb 15.4 H Hct 47.9 H MCV 88.4 MCH 28.4 MCHC 32.2 RDW 14.1 RDW Differential 45.2 H Plt Count 276 MPV 9.2 Immature Gran % (Auto) 0.400 Neut % (Auto) 68.9 Lymph % (Auto) 19.2 Emanuel % (Auto) 9.2 Eos % (Auto) 2.1 Baso % (Auto) 0.2 Absolute Neuts (auto) 7.5 Absolute Lymphs (auto) 2.09 Total Counted Not Reportable Protein C Antigen Functional Protein C Prot C Funct Activity Antithrombin III Ag Func Antithrombin III Factor V Leiden Mutat Sodium 138 Potassium 4.0 Chloride 105 Carbon Dioxide 24.0 Anion Gap 9 BUN 30 H Creatinine 1.27 H Estim Creat Clear Calc 32.60 Est GFR (MDRD) Af Amer 54 L Est GFR (MDRD) Non-Af 44 L BUN/Creatinine Ratio 23.6 H Glucose 130 H Hemoglobin A1c Lactic Acid 1.6 Calcium 9.8 Magnesium Troponin I 0.037 B-Natriuretic Peptide Triglycerides Cholesterol LDL Cholesterol VLDL Cholesterol HDL Cholesterol Beta-2-GPI IgG Ab Beta-2-GPI IgA Ab Beta-2-GPI IgM Ab Anti-Cardiolipin IgG Ab Anti-Cardiolipin IgM Ab Factor II DNA Analysis Miscellaneous Test 03/25/18 03/25/18 03/25/18 15:45 15:45 17:03 WBC RBC Hgb Hct MCV MCH MCHC RDW RDW Differential Plt Count MPV Immature Gran % (Auto) Neut % (Auto) Lymph % (Auto) Emanuel % (Auto) Eos % (Auto) Baso % (Auto) Absolute Neuts (auto) Absolute Lymphs (auto) Total Counted Protein C Antigen Pending Functional Protein C Pending Prot C Funct Activity Pending Antithrombin III Ag Pending Func Antithrombin III Pending Factor V Leiden Mutat Pending Sodium Potassium Chloride Carbon Dioxide Anion Gap BUN Creatinine Estim Creat Clear Calc Est GFR (MDRD) Af Amer Est GFR (MDRD) Non-Af BUN/Creatinine Ratio Glucose Hemoglobin A1c Lactic Acid Calcium Magnesium 2.0 Troponin I B-Natriuretic Peptide 74.0 Triglycerides Cholesterol LDL Cholesterol VLDL Cholesterol HDL Cholesterol Beta-2-GPI IgG Ab Pending Beta-2-GPI IgA Ab Pending Beta-2-GPI IgM Ab Pending Anti-Cardiolipin IgG Ab Pending Anti-Cardiolipin IgM Ab Pending Factor II DNA Analysis Pending Miscellaneous Test 03/25/18 03/25/18 03/25/18 17:03 21:00 21:00 WBC RBC Hgb Hct MCV MCH MCHC RDW RDW Differential Plt Count MPV Immature Gran % (Auto) Neut % (Auto) Lymph % (Auto) Emanuel % (Auto) Eos % (Auto) Baso % (Auto) Absolute Neuts (auto) Absolute Lymphs (auto) Total Counted Protein C Antigen Functional Protein C Prot C Funct Activity Antithrombin III Ag Func Antithrombin III Factor V Leiden Mutat Sodium Potassium Chloride Carbon Dioxide Anion Gap BUN Creatinine Estim Creat Clear Calc Est GFR (MDRD) Af Amer Est GFR (MDRD) Non-Af BUN/Creatinine Ratio Glucose Hemoglobin A1c 6.6 H Lactic Acid Calcium Magnesium Troponin I 0.034 B-Natriuretic Peptide Triglycerides Cholesterol LDL Cholesterol VLDL Cholesterol HDL Cholesterol Beta-2-GPI IgG Ab Beta-2-GPI IgA Ab Beta-2-GPI IgM Ab Anti-Cardiolipin IgG Ab Anti-Cardiolipin IgM Ab Factor II DNA Analysis Miscellaneous Test Pending 03/25/18 03/26/18 23:55 05:25 WBC RBC Hgb Hct MCV MCH MCHC RDW RDW Differential Plt Count MPV Immature Gran % (Auto) Neut % (Auto) Lymph % (Auto) Emanuel % (Auto) Eos % (Auto) Baso % (Auto) Absolute Neuts (auto) Absolute Lymphs (auto) Total Counted Protein C Antigen Functional Protein C Prot C Funct Activity Antithrombin III Ag Func Antithrombin III Factor V Leiden Mutat Sodium 142 Potassium 4.2 Chloride 107 Carbon Dioxide 26.0 Anion Gap 9 BUN 22 H Creatinine 1.05 H Estim Creat Clear Calc 39.43 Est GFR (MDRD) Af Amer 67 Est GFR (MDRD) Non-Af 55 L BUN/Creatinine Ratio 21.0 H Glucose 99 Hemoglobin A1c Lactic Acid Calcium 8.5 Magnesium Troponin I 0.039 B-Natriuretic Peptide Triglycerides 161 Cholesterol 124 LDL Cholesterol 62 VLDL Cholesterol 32 HDL Cholesterol 30 L Beta-2-GPI IgG Ab Beta-2-GPI IgA Ab Beta-2-GPI IgM Ab Anti-Cardiolipin IgG Ab Anti-Cardiolipin IgM Ab Factor II DNA Analysis Miscellaneous Test Code Visit Inpatient E&M: [id number] Disch Hosp
--- NOTE | 2018-03-26 11:53 | PHA.DC.MC ---
Pharmacy Service has performed discharge medication reconciliation and counseling for this patient. The patient's discharge medication list was reviewed for discrepancies and discrepancies were resolved. The patient was counseled on the following discharge medications and changes in medications for homegoing were reviewed. Aspirin [Aspir-Low] 81 mg PO DAILY 09/07/17 Atorvastatin Calcium [Lipitor] 80 mg PO QHS 09/07/17 Fenofibrate,Micronized [Fenofibrate] 134 mg PO DAILY 09/07/17 Metoprolol Tartrate [Lopressor (beta eleanor)] 50 mg PO BID 09/07/17 [place]-3 Fatty Acids [Fish Oil Concentrate] 1,000 mg PO DAILY 09/07/17 Pyridoxine HCl [Vitamin B-6] 100 mg PO DAILY 09/07/17 Venlafaxine HCl [Venlafaxine HCl ER] 150 mg PO DAILY 09/07/17 Daily Defense 2 cap PO DAILY 03/25/18 Fidelia C 1 tab PO DAILY 03/25/18 Amlodipine [Norvasc] 5 mg PO DAILY #30 tablet 03/26/18 Glipizide [Glipizide ER] 2.5 mg PO DAILY #30 tab.er.24 03/26/18 Rivaroxaban [Xarelto] 15 mg PO BIDCM #41 tablet 03/26/18 --> NEW MEDICATION, COUNSELED PATIENT ON The Reason for Use, instructions for use, and potential side effects were reviewed for all new medications. The patient's questions regarding all of their medications were answered. The patient demonstrated some understanding but would benefit from further education and reinforcement.
--- NOTE | 2018-03-26 12:00 | CASEMGMT ---
Per Denys GAN, pt to be sent home on Xarelto at discharge for bilat PE and script already e-scribed. Call to [place] pharmacist at [facility] and she states that Xarelto is covered but that co-pay is $303.57/month. [place] also ran Eliquis via phone and she states that it will only be $75.17/ month. Denys DIRECT CARE PROVIDER aware at this time and will now place pt on Eliquis at discharge instead of Xarelto. Pt provided with 30 day free Eliquis trial card at this time, voices understanding. Karla KAPOOR CM
[2018-03-26] MEDS: amLODIPine 5 MG Tablet PO (12:08)
[2018-03-26] MEDS: 0.9% NaCl Peripheral Flush Adult/Peds IV ×2 (12:09)
--- NOTE | 2018-03-26 17:13 | VDLE_ITS ---
Reason For Study: PULMONARY EMBOLISM RIGHT LEFT GSV is normal. GSV is normal. CFV is compressible, spontaneous, phasic, CFV is compressible, spontaneous, phasic, competent and demonstrates normal competent, and demonstrates normal augmentation. augmentation. FV is compressible, spontaneous, phasic, FV is compressible, spontaneous, phasic, competent and demonstrates normal competent and demonstrates normal augmentation. augmentation. POP V is compressible, spontaneous, phasic, POP V is compressible, spontaneous, phasic, competent and demonstrates normal competent and demonstrates normal augmentation. augmentation. T/P Trunk is compressible. T/P Trunk is compressible. PTV is compressible. PTV is compressible. RT PerV is compressible. LT PERV is dilated & non compressible; Procedure appears C/W acute DVT. Exam performed portable in patient room. A preliminary report was called and/or faxed to [facility] & Dr. Moran. <> Interpretation Summary There is no evidence of right lower extremity deep vein thrombosis. Acute deep venous thrombosi left peroneal vein. Patent and compressible bilateral great saphenous veins. Ordering Physician: SRIRAM Jones Referring Physician: Chevy Matthew Performed By: Kianna Capone, CASE, RVT
[2018-04-02 16:38] LABS: Protein C Antigen 95 % (60-150); Protein C, Functional 122 % (73-180)
[2018-04-03 12:12] LABS: Anti-Cardiolipin Ab, IgG, Qn < 9 GPL U/mL (0-14); Anti-Cardiolipin Ab, IgM, Qn 10 MPL U/mL (0-12); Anti-Thrombin 3 AG, Immunol 76 % (72-124); Antithrombin 3 Function 90 % (75-135); Beta-2-Glycoprotein I IgA <9 (0-25); Beta-2-Glycoprotein I IgG <9 (0-20); Beta-2-Glycoprotein I IgM <9 (0-32)
== END 2018-03-26 13:16 | disposition home or self-care (01) | DRG 176 ==
LOC: ED 16:44 → PCU 17:31
PROVIDERS: Nurse Practitioner Family; Admitting Provider Family Medicine; Emergency Provider Emergency Medicine; Family Provider Family Medicine; PCP Family Medicine; Visit Provider Internal Medicine
DX: I26.99 Other pulmonary embolism without acute cor pulmonale (principal); I82.4Z2 Acute embolism and thrombosis of unspecified deep veins of left distal lower extremity; R09.02 Hypoxemia; I12.9 Hypertensive chronic kidney disease with stage 1 through stage 4 chronic kidney disease, or unspecified chronic kidney disease; N18.3 Chronic kidney disease, stage 3 (moderate); E78.5 Hyperlipidemia, unspecified; M10.9 Gout, unspecified; R06.89 Other abnormalities of breathing; E11.22 Type 2 diabetes mellitus with diabetic chronic kidney disease
CPT/HCPCS: 36415; 71275; 80048; 80061; 81240; 81241; 83036; 83605; 83735; 83880; 84484; 85025; 85300; 85301; 85302; 85303; 86146; 86147; 93005; 93306; 93970; 94640; 97161; 99284; J7030; Q9967; A4216

== ENCOUNTER → 2018-04-15 05:42 | Outpatient (CLI) | payer MEDICARE, BC, SELFPAY ==
[2018-04-07 09:52] VITALS: BMI 31.8
--- NOTE | 2018-04-15 05:46 | CT_ITS ---
STUDY: CT CHEST WITH CONTRAST REASON FOR EXAM: Female, 72 years old. Follow-up for known lung nodule. History of recent bilateral pulmonary emboli. RADIATION DOSAGE (If Supplied By Facility): CTDIvol = ( 14.15 ) mGy, DLP = ( 1392.96 ) mGycm TECHNIQUE: Transaxial imaging was performed following intravenous administration of 100mL ml of Isovue 300 contrast material. Multiplanar coronal and sagittal images were reformatted. Individualized dose optimization techniques were used for this CT. COMPARISON: Comparison is made with prior examination dated March 25, 2018. FINDINGS: The previously seen spiculated right perihilar nodular density is not seen at this time. There are minimal increased markings in the anterior aspect of the right middle lobe suggestive of a atelectasis. Mild increased markings at the lung bases suggestive of a bibasilar atelectasis and scarring. There is no demonstrated pleural abnormality. Normal heart and pericardium. Normal mediastinum. Normal hilar regions. Residual nonocclusive filling defects are seen in branches of the right lower PULMONARY artery. Minimal intraluminal filling defects seen in branches of the left lower lobe pulmonary artery. There is atherosclerotic calcification of the aortic arch There are multi-level degenerative changes of the thoracic spine. There is no demonstrated abnormality of the visualized upper abdomen. CT/Chest WITH Contrast IMPRESSION: The previously seen spiculated right perihilar lesion is not seen at this time. Mild increased markings at the lung bases as well as in the anterior aspect of the right middle lobe suggestive of atelectasis and scarring. Electronically Signed: Kerwin Joe MD at 11:34 EST Tel [phone], Service support ,
--- NOTE | 2018-04-15 06:03 | CT_ITS ---
STUDY: CT ABDOMEN AND PELVIS WITH CONTRAST REASON FOR EXAM: Female, 72 years old. History of lung nodule. Recent history of bilateral pulmonary emboli. History of hepatitis B. RADIATION DOSAGE (If Supplied By Facility): CTDIvol = ( 14.15 ) mGy, DLP = ( 1392.96 ) mGycm TECHNIQUE: Transaxial images were obtained from the dome of the diaphragm to the symphysis pubis with oral contrast. 100mL ml of Isovue 300 contrast was administered. Sagittal and coronal images were reconstructed. Individualized dose optimization techniques were used for this CT. COMPARISON: None. FINDINGS: Minimal increased markings at the lung bases suggest bibasilar atelectasis and/or scarring. The visualized portions of the heart are within normal limits. There is decreased attenuation of the liver consistent with steatosis. Mildly distended gallbladder. Normal spleen. Normal pancreas. Normal bilateral adrenal glands. Normal right kidney. Normal left kidney. There is a small hiatal hernia. Normal small intestine. There are multiple colonic diverticula consistent with diverticulosis. The appendix is visualized and appears normal. There is diffuse atherosclerotic calcification of the abdominal aorta, without a demonstrated aneurysm. Normal inferior vena cava. Normal retroperitoneum. Normal urinary bladder. There is a small umbilical hernia containing fat. Small bilateral inguinal hernias containing fat slightly more prominent on the left side. There are diffuse degenerative changes of the visualized lumbar spine. Straightening of the normal lumbar lordosis. CT/Abdomen/Pelvis WITH Contrast IMPRESSION: Fatty infiltration of the liver. Distended gallbladder. Sigmoid diverticulosis. Electronically Signed: Kerwin Joe MD at 13:34 EST Tel [phone], Service support ,
--- OUTSIDE RECORDS SUMMARY | 2018-06-10 06:03 | XMS RPT_ITS ---
:1945 Author Organization OHIP Support Name Relationship Address Phone AGUUSTO CUMMINGS Unavailable [address] + [place] [address] R Unavailable Unavailable Unavailable WHITECHERYLEN Unavailable Unavailable + AUGUSTO CUMMINGS Unavailable [address] + [place] [address] R Unavailable Unavailable Unavailable WHITE MICHELLE Unavailable Unavailable + AUGUSTO CUMMINGS Unavailable [address] + [place] [address] R Unavailable Unavailable Unavailable WHITE MICHELLE Unavailable Unavailable + Augusto Cummings Unavailable Unavailable + White Michelle Unavailable Unavailable + AUGUSTO CUMMINGS Unavailable [address] + [place] [address] R Unavailable Unavailable Unavailable SALINA CUMMINGSH Unavailable [address] + [place] [address] R Unavailable Unavailable Unavailable WHITE, MICHELLE Unavailable Unavailable + AUGUSTO CUMMINGS Unavailable [address] + [place] [address] R Unavailable Unavailable Unavailable SALINA CUMMINGSH Unavailable [address] + [place] [address] R Unavailable Unavailable Unavailable WHITE, MICHELLE Unavailable Unavailable + AUGUSTO CUMMINGS Unavailable [address] + [place] [address] R Unavailable Unavailable Unavailable BRIANVITOR SCHMIDTNETH Unavailable [address] + [place] [address] R Unavailable Unavailable Unavailable BRIANSALINA SCHMIDTH Unavailable [address] + [place] [address] R Unavailable Unavailable Unavailable AUGUSTO CUMMINGS Unavailable [address] + [place] [address] R Unavailable Unavailable Unavailable MICHELLE ZEPEDA Unavailable Unavailable + AUGUSTO CUMMINGS Unavailable [address] + [place] [address] [facility] Unavailable [address] + [place] [address] Augusto Cummings Unavailable Unavailable + Michelle Zepeda Unavailable Unavailable + Care Team Providers Name Role Phone Chevy Pereyra Attending Unavailable UNKNOWN, PROVIDER Referring Unavailable Bettycasso, Chevy Primary Care Unavailable Venkatesho, Chevy Attending Unavailable UNKNOWN, PROVIDER Referring Unavailable Fracasso, Chevy Primary Care Unavailable MANOLO CARVALHO (CNM) Attending Unavailable MANOLO CARVALHO (CNNadiya) Referring Unavailable Flavia Zaragoza Attending Unavailable Fracasso, Chevy Primary Care Unavailable Fracasso, Chevy Primary Care Unavailable Cliff Lopez Attending Unavailable Fracasso, Chevy Primary Care Unavailable White, Deneen Admitting Unavailable Esau Ghotra D.O. Consulting Unavailable Frank Moran Attending Unavailable White, Deneen Admitting Unavailable Fracasso, Chevy Primary Care Unavailable White, Deneen Consulting Unavailable White, Deneen Attending Unavailable White, Deneen Admitting Unavailable Esau Ghotra D.O. Attending Unavailable Fracasso, Chevy Primary Care Unavailable Esau Ghotra D.O. Consulting Unavailable Frank Moran Consulting Unavailable White, Deneen Admitting Unavailable SRIRAM Jones Attending Unavailable Fracasso, Chevy Primary Care Unavailable Esau Ghotra D.O. Consulting Unavailable Frank Moran Consulting Unavailable Flavia Zaragoza Attending Unavailable VenkateshoChevy Referring Unavailable Flavia Zaragoza Attending Unavailable Flavia Zaragoza Referring Unavailable Fracasso, Chevy Primary Care Unavailable Paulino Kimball Attending Unavailable Devin Evans Referring Unavailable ImanssoChevy Attending Unavailable Bettycasso, Chevy Primary Care Unavailable Paulino Kimball Attending Unavailable Will Swartz Referring Unavailable Topher Rice Attending Unavailable SRIRAM Jones Referring Unavailable PROBLEMS PROBLEMS DATE TYPE CONDITION / CODE ATTENDING STATUS SOURCE Unknown G47.33 - Obstructive Mila, Active [facility] 8 sleep apnea (adult) [facility] (pediatric) / Hospital G47.33(ICD-10) Repository Unknown R91.1 - Solitary Mila, Active [facility] 8 pulmonary nodule / [facility] R91.1(ICD-10) Hospital Repository Unknown R94.31 - Abnormal Paulino Kimball Active [facility] electrocardiogram Community [ECG] [EKG] / Hospital R94.31(ICD-10) Repository Unknown R06.89 - Other Paulino Kimball Active [facility] 8 abnormalities of Community breathing / Hospital R06.89(ICD-10) Repository Unknown I26.99 - Other Frank Moran Active [facility] 8 pulmonary embolism Community without acute cor Hospital pulmonale / Repository I26.99(ICD-10) Unknown R06.02 - Shortness of CebuTopher dowd Active [facility] 8 breath / Community R06.02(ICD-10) Hospital Repository Active Encounter for LAURA Conley [facility] 8 screening mammogram [facility] for malignant neoplasm [place] of breast / Repository Z12.31(ICD-10) Admitting Encounter for Chevy Pereyra [facility] Diagnosis screening for System malignant neoplasm of Repository colon / Z12.11(ICD-10) Admitting Second degree Chevy Pereyra [facility] 8 Diagnosis hemorrhoids / System K64.1(ICD-10) Repository Admitting Dvrtclos of lg int w/o Chevy Pereyra [facility] 8 Diagnosis perforation or abscess System w/o bleeding / Repository K57.30(ICD-10) Admitting Unspecified asthma, Chevy Pereyra [facility] 8 Diagnosis uncomplicated / System J45.909(ICD-10) Repository Admitting Unspecified viral Chevy Pereyra [facility] 8 Diagnosis hepatitis B without System hepatic coma / Repository B19.10(ICD-10) Admitting Pure Chevy Pereyra [facility] 8 Diagnosis hypercholesterolemia, System unspecified / Repository E78.00(ICD-10) Admitting Essential (primary) Chevy Pereyra [facility] 8 Diagnosis hypertension / System I10(ICD-10) Repository Admitting Age-related Chevy Pereyra Active [facility] 8 Diagnosis osteoporosis w/o System current pathological Repository fracture / M81.0(ICD-10) Admitting Allergy status to Chevy Pereyra Active [facility] 8 Diagnosis other antibiotic System agents status / Repository Z88.1(ICD-10) Admitting Allergy status to Chevy Pereyra [facility] 8 Diagnosis sulfonamides status / System Z88.2(ICD-10) Repository Admitting Allergy status to oth Chevy Pereyra [facility] 8 Diagnosis drug/meds/biol subst System status / Z88.8(ICD-10) Repository PROCEDURES PROCEDURES No Procedure Records FoundRESULTS RESULTS PET/CT TUMOR BASE Observed: 04/16/2018 Status: F Source: [facility] INIT 1:05 PM [facility] [place] [facility] Imaging Services [address] [place] [address] PET/CT Tumor Base -Thigh Init MR#: [id number] Acct: [id number] Name: SHARRON CUMMINGS Rep #: [id number] : 1945 F 72 From: Merlin Magallanes DO PCP: Chevy Matthew Status: REG CLI Study: PET/CT Tumor Base -Thigh Init Date of Exam: 04/19/18 Exam# [id number] Ordering Dr: Chevy Matthew EXAMINATION: FDG PET CT INDICATIONS: A 72-year-old female with reported history of pulmonary nodularity. COMPARISON EXAMINATION: CT of the chest, abdomen and pelvis reports dated 04/15/18. NON-INDEX LESION SIZE SUV INTERPRETATION Right supraclavicular region 1.8 Quantitative criteria for viable neoplasm not fulfilled TECHNIQUE: Following the intravenous administration of 13.44 mCi of F-18 deoxyglucose via the left antecubital fossa, multiplanar image acquisitions of the neck, chest, abdomen and pelvis to level of mid thigh, obtained at one hour post radiopharmaceutical administration contemporaneously interpreted with the current CT of the neck, chest, abdomen and pelvis to level of mid thigh, dated 04/19/[address] of the chest, abdomen and pelvis reports dated 04/15/18 reveal: SERUM GLUCOSE LEVEL: 77 mg/dl. HEIGHT: 62 inches. WEIGHT: 170 lbs. FINDINGS: 1. There is no quantitative scintigraphic evidence of abnormal increased glucose metabolism on meticulous inspection of whole body acquisitions to include all three axis reconstructions. 2. Normal physiologic distribution of the radiopharmaceutical is apparent in the hepatic (2.7) and splenic parenchyma, both renal units, bladder and visualized intestinal tract. There is uniform distribution of the radiopharmaceutical concentration defined in the visualized cerebellar hemispheres and cerebral cortical structures.? Diffuse gastrointestinal tract activity is noted throughout all four quadrants of the abdominal-pelvic retroperitoneum, mesentery consistent with normal physiologic distribution of the radiopharmaceutical. Asymmetric increased FDG concentration is defined in the right supraclavicular region. The calculated standard uptake value is noted to be 1.8. Quantitative criteria for viable neoplasm are not fulfilled. Enhanced tracer concentration is demonstrated in the anterior aspect of the oral cavity in proximity to dental hardware placement. Pertinent CT findings are as follows. CHEST: Atherosclerotic calcification is defined in the thoracic aorta without evidence of dilatation, aneurysm formation. Coronary arterial calcification is observed. Bilateral axillary and subcentimeter mediastinal soft tissue densities are non-glucose avid. There are no parenchymal densities-nodules defined in the right-left hemithorax manifesting quantitatively significant increased glucose metabolism. Linear densities defined in the bilateral lower lung garcia are ametabolic. ABDOMEN AND PELVIS: There is fatty metamorphosis involving the hepatic parenchyma. There is questionable evidence of gallbladder sludge. Atherosclerotic calcification is defined in the abdominal aorta without evidence of dilatation, aneurysm formation. Pelvic arterial calcification is observed. A fat-containing ventral hernia is defined. Colonic diverticulosis is demonstrated. SKELETAL: Degenerative changes defined in the cervical, thoracic and lumbar spine demonstrate no evidence for glucose hypermetabolism. PET/PET/CT Tumor Base -Thigh Init IMPRESSION: 1. NEGATIVE EXAMINATION. There is no definitive quantitative scintigraphic evidence of viable neoplasm. 2. Mild increased FDG concentration defined in the right supraclavicular region does not fulfill quantitative criteria for viable neoplasm. 3. The increase in glucose concentration defined in the anterior aspect of the oral cavity in proximity to dental hardware placement is most consistent with a component of metallic reconstruction artifact. (Jose et al, AJR 179:1337, 2002). 4. Anatomic stability may be ensured in the bilateral hemithorax ametabolic parenchymal densities with repeat CT of the thorax in six months. (Juan, Seminars in Thoracic and Cardiovascular Surgery 14:292, 2002). Electronic Signature Merlin Magallanes D.O. Electronically Signed: Merlin Magallanes DO at 23:15 EST Tel , Service support , CC: Chevy Matthew Title Examiner: Signed ABDOMEN/PELVIS WITH Observed: 04/15/2018 Status: F Source: [facility] CONTRAST 6:04 AM [facility] [place] [facility] Imaging Services [address] [place] [address] Abdomen/Pelvis WITH Contrast MR#: [id number] Acct: [id number] Name: SHARRON CUMMINGS Rep #: [id number] : 1945 F 72 From: Kerwin Joe MD PCP: Chevy Matthew Status: REG CLI Study: Abdomen/Pelvis WITH Contrast Date of Exam: 04/15/18 Exam# [id number] Ordering Dr: Chevy Matthew STUDY: CT ABDOMEN AND PELVIS WITH CONTRAST REASON FOR EXAM: Female, 72 years old. History of lung nodule. Recent history of bilateral pulmonary emboli. History of hepatitis B. RADIATION DOSAGE (If Supplied By Facility): CTDIvol = ( 14.15 ) mGy, DLP = ( 1392.96 ) mGycm TECHNIQUE: Transaxial images were obtained from the dome of the diaphragm to the symphysis pubis with oral contrast. 100mL ml of Isovue 300 contrast was administered. Sagittal and coronal images were reconstructed. Individualized dose optimization techniques were used for this CT. COMPARISON: None. FINDINGS: Minimal increased markings at the lung bases suggest bibasilar atelectasis and/or scarring. The visualized portions of the heart are within normal limits. There is decreased attenuation of the liver consistent with steatosis. Mildly distended gallbladder. Normal spleen. Normal pancreas. Normal bilateral adrenal glands. Normal right kidney. Normal left kidney. There is a small hiatal hernia. Normal small intestine. There are multiple colonic diverticula consistent with diverticulosis. The appendix is visualized and appears normal. There is diffuse atherosclerotic calcification of the abdominal aorta, without a demonstrated aneurysm. Normal inferior vena cava. Normal retroperitoneum. Normal urinary bladder. There is a small umbilical hernia containing fat. Small bilateral inguinal hernias containing fat slightly more prominent on the left side. There are diffuse degenerative changes of the visualized lumbar spine. Straightening of the normal lumbar lordosis. CT/Abdomen/Pelvis WITH Contrast IMPRESSION: Fatty infiltration of the liver. Distended gallbladder. Sigmoid diverticulosis. Electronically Signed: Kerwin Joe MD at 13:34 EST Tel [phone], Service support , CC: Chevy Matthew Title Examiner: Signed CHEST WITH CONTRAST Observed: 04/15/2018 Status: F Source: [place] 5:46 AM [facility] [place] [facility] Imaging Services [address] [place] [address] Chest WITH Contrast MR#: [id number] Acct: [id number] Name: SHARRON CUMMINGS Rep #: [id number] : 1945 F 72 From: Kerwin Joe MD PCP: Chevy Matthew Status: REG CLI Study: Chest WITH Contrast Date of Exam: 04/15/18 Exam# [id number] Ordering Dr: Flavia Zaragoza SECONDS GRADER-C STUDY: CT CHEST WITH CONTRAST REASON FOR EXAM: Female, 72 years old. Follow-up for known lung nodule. History of recent bilateral pulmonary emboli. RADIATION DOSAGE (If Supplied By Facility): CTDIvol = ( 14.15 ) mGy, DLP = ( 1392.96 ) mGycm TECHNIQUE: Transaxial imaging was performed following intravenous administration of 100mL ml of Isovue 300 contrast material. Multiplanar coronal and sagittal images were reformatted. Individualized dose optimization techniques were used for this CT. COMPARISON: Comparison is made with prior examination dated March 25, 2018. FINDINGS: The previously seen spiculated right perihilar nodular density is not seen at this time. There are minimal increased markings in the anterior aspect of the right middle lobe suggestive of a atelectasis. Mild increased markings at the lung bases suggestive of a bibasilar atelectasis and scarring. There is no demonstrated pleural abnormality. Normal heart and pericardium. Normal mediastinum. Normal hilar regions. Residual nonocclusive filling defects are seen in branches of the right lower PULMONARY artery. Minimal intraluminal filling defects seen in branches of the left lower lobe pulmonary artery. There is atherosclerotic calcification of the aortic arch There are multi-level degenerative changes of the thoracic spine. There is no demonstrated abnormality of the visualized upper abdomen. CT/Chest WITH Contrast IMPRESSION: The previously seen spiculated right perihilar lesion is not seen at this time. Mild increased markings at the lung bases as well as in the anterior aspect of the right middle lobe suggestive of atelectasis and scarring. Electronically Signed: Kerwin Joe MD at 11:34 EST Tel [phone], Service support , CC: Flavia Zaragoza; Chevy Matthew Title Examiner: Signed PULMONARY VISIT REPORT Observed: 04/07/2018 Status: F Source: [place] 3:33 PM [facility] [place] [facility] [address] [place] [address] OFFICE VISIT Date of Service: 04/07/18 MR#: [id number] Acct: [id number] Name: SHARRON CUMMINGS Rep #: [id number] : 1945 Provider: Flavia Zaragoza Age/Sex: 72/F Location[place] [facility] [place] Status: Signed Assessment AND Plan 1. Lung nodule R91.[address] of the chest with contrast in 2 months, follow-up with Dr. Ghotra in 2 months to discuss test results and continue to develop a plan. Discussed with the patient pending repeat CT results that she may require a PET scan for a biopsy (EBUS). Patient conveys understanding and is agreeable with this plan. Orders Orders: 2. Other acute pulmonary embolism without acute cor pulmonale I26.99 Plan Continue anticoagulation until follow-up visit, we will discuss necessity of prolonged versus lifelong anticoagulation. 3. VIOLETTA (obstructive sleep apnea) G47.33 Plan Many symptoms consistent with obstructive sleep apnea. Split- night study followed by a visit with Dr. Ghotra to discuss test results. Discussed with the patient that if the test is positive and equipment is necessary that initially we would set a goal of her to wear the device at least 4 hours nightly, but ultimately was utilizing times but sleepy. She has been encouraged to contact the office with any difficulties acclimating to Pap therapy in the meantime. Orders Orders: Plan Detail Follow Up 2 Months (DMB) [facility] hospital f/u: Chief Complaint: Fatigue HPI Comments Details: This is a 72 year old pleasant F, currently under the care of Chevy Matthew, here to follow up after a recent hospitalization at [facility], from March 25 - March 26, 2018 for shortness of breath, bilateral pulmonary embolism, acute hypoxic respiratory insufficiency and left lower extremity DVT. The hospital stay was complicated by sinus tachycardia. 33 pages of hospital documentation was reviewed, and found to be significant for a CTA of the chest completed on March 25 showing extensive bilateral pulmonary emboli as well as an 8 x 15 mm spiculated nodule in the right perihilar region. Upon discharge, the patient was started on Eliquis twice daily. Today, she presents to the office ambulatory and currently on room air. She is accompanied today by her . She reports that she believes she is 90% better since hospital discharge. She continues to experience shortness of breath on exertion but states that it is significantly improved since her hospital admission. She does report a dry cough but denies any hemoptysis or sputum production. She denies any wheezing, chest tightness, chest pain or palpitations, she did note that recently when rushing into the office she did feel some wheezing and chest tightness that was resolved with rest. She has not noticed any lower extremity edema. She denies any fever, chills or body aches. She denies any lymphadenopathy or unintentional weight loss. She has not noticed any easy bruising. She reports that she does not feel rested upon arising in the morning. She naps multiple times daily. Her reports that she falls asleep anytime sitting still. She does report dry mouth in the morning but denies any difficulty with frequent headaches. She is experiencing 2-4 episodes of nocturia nightly. Intake Vital Signs04/07/18 Height 5 ft 2 in 04/07/18 Weight: 174 lb Intake Visit Reasons: hospital f/u Proof Machine Operator Required: No Accompanied by: Is patient in pain?: No Allergies sulfamethoxazole [From Bactrim] Allergy (Severe, Verified 04/07/18 10:04) Anaphylaxis estrogens, conjugated [From Premarin] Adverse Reaction (Verified 04/07/18 10:04) Other htn isosorbide [From Imdur] Adverse Reaction (Verified 04/07/18 10:04) Other, severe headache and vomitting levofloxacin [From Levaquin] Adverse Reaction (Verified 04/07/18 10:04) Other bilateral tendonitis raloxifene [From Evista] Adverse Reaction (Verified 04/07/18 10:04) Other- HTN solifenacin [From Vesicare] Adverse Reaction (Verified 03/25/18 15:51) Other trimethoprim [From Bactrim] Adverse Reaction (Verified 03/25/18 15:51) Other Medications Aspirin [Aspir-Low] 81 mg PO DAILY 09/07/17 [History Confirmed 04/07/18] Atorvastatin Calcium [Lipitor] 80 mg PO QHS 09/07/17 [History Confirmed 04/07/18] Metoprolol Tartrate [Lopressor (beta eleanor)] 50 mg PO BID 09/07/17 [History Confirmed 04/07/18] Venlafaxine HCl [Venlafaxine HCl ER] 150 mg PO DAILY 09/07/17 [History Confirmed 04/07/18] Amlodipine [Norvasc] 5 mg PO DAILY #30 tab 03/26/18 [Rx Confirmed 04/07/18] Apixaban [Eliquis] 5 mg PO BID #70 tab 03/26/18 [Rx Confirmed 04/07/18] Glipizide [Glipizide ER] 2.5 mg PO DAILY #30 tab.er.24 03/26/18 [Rx Confirmed 04/07/18] fenofibric acid (choline) 135 mg capsule,delayed release 135 mg PO DAILY 04/07/18 [History Confirmed 04/07/18] [facility] Medical History Hypertension (Chronic) Hyperlipidemia (Chronic) Gout (Chronic) Asthma (Acute) Broken jaw (Acute) DVT (deep venous thrombosis) (Acute) Hepatitis B (Acute) Retinal tear (Acute) Surgical History H/O adenoidectomy (Acute) History of bunionectomy (Acute) History of tonsillectomy (Acute) H/O bilateral cataract extraction (Resolved) skin cancer removed (Resolved) Family History Brother Hx of heart bypass surgery Mother Hx of heart bypass surgery Father Hx of heart bypass surgery Sister Hx of heart bypass surgery Social History household members: spouse housing: house current occupational status: retired pets and animals: Yes pets and animals: cat(s) Smoking Status: Never smoker second hand exposure: No alcohol intake: never substance use type: does not use Review of Systems Const CONSTITUTIONAL: Positive fatigue; negative anorexia, body ache, chills, daytime sleepiness, fever(s), night sweats, oral thrush, stops breathing during sleep, weight loss, sleeping in chair, weight loss, weight gain, frequent colds, seasonal allergies, other, headache(s) or orthopnea EETM Ear Nose Throat Mouth: Positive hearing normal and post nasal drip; negative hard of hearing, hoarseness, dry mouth in morning, change in vision, itchy eyes, eye pain, swallowing Difficulty, ear pain, nose bleed, headache(s), mouth pain, nasal congestion, nasal discharge, sinus pain, sinus pressure, sore throat or other Cardio Cardiovascular: Negative chest pain, chest pain at rest, chest pain with activity, irregular heart rhythm, edema, shortness of breath when lying down, palpitations, murmur or other Resp Respiratory: Positive as per HPI, shortness of breath shortness of breath: Positive with activity, wheezing, cough cough: Positive non-productive and chest tightness; negative pain with cough, chest congestion, pain on inspiration, inhalers, increase use of rescue inhalers, snoring, apnea or other Gastro Gastrointestional: Negative bloody stools, change in appetite, difficulty swallowing, reflux, hematemesis, melena stool, loose stool, constipation or other Genitourinary: Negative blood in urine, nocturia, pain with urination or other Musc Musculoskeletal: Negative body pain, back pain, neck pain or other Skin/Breast Skin/Breast: Negative dry skin, itching, rash, unusual bruising, breast lump or other Neuro Neurological: Negative restless legs, confusion, weakness or other Psych Psychocological: Negative abnormal sleep pattern, anxiety, thoughts of hurting self/others, hopelessness or other Lymph Lymphatic: Negative easy bleeding, easy bruising, swollen lymph nodes or other Exam Const Constitutional: Positive conversant, cooperative, in no acute respiratory distress, healthy appearing, well developed, well nourished, good hygiene and obese Head Head: Positive normocephalic and atraumatic; negative cyanosis of lips/distal nose Eyes Eye: Positive clear conjunctiva; negative nystagmus or scleral abnormality Ears Ear: Positive hearing normal and external ears normal; negative hard of hearing Nose Nose: Positive external nose normal and no nasal discharge; negative epistaxis Mouth Mouth: Positive post nasal drip, oral mucosae normal, no lesions and crowded posterior oropharynx; negative malodorous breath or oral thrush present Mallampati Score: III: Mallampati Score Neck Neck: Positive normal visual inspection, full ROM and trachea midline; negative lymphadenopathy, JVD or tender Chest Wall Chest: Positive normal inspection of the chest and symmetric chest movement; negative increased A/P diameter Resp lung sounds: Positive clear to auscultation, good air exchange, normal expiratory time and normal respiratory effort; negative diminished, wheezes, rhonchi, rales, dullness to percussion or wheeze present on forced exhalation Cardio Cardiac: Positive regular rate, regular rhythm, S1 normal and S2 normal; negative murmur GI GI: Positive normal to inspection and obese; negative distended Genitourinary: Positive deferred Musc Musculoskeletal: Positive steady gait and ROM normal; negative kyphosis or scoliosis Skin Pulmonary Skin Exam: Positive intact; negative rash Pulses Pulse: Yes pulses normal x4 extremities Extremities Extremities: Yes capillary refill normal, No clubbing, No cyanosis, No edema Neuro Neurologic: Yes conversant, Yes no focal neuro deficits, Yes normal concentration, Yes understands questions, Yes cooperative, Yes normal coordination, Yes normal cognition, No tremor Lymph Lymphatic: No lymphadenopathy, No tenderness, No cervical adenopathy Psych Appearance: Positive grossly normal, eye contact and well kempt Mental Status: Positive mental status grossly normal Mood: Positive congruent mood Affect: Positive normal affect Coding Level of Care Code Off vis,est,level 4 Diagnoses Lung nodule R91.1 Other acute pulmonary embolism without acute cor pulmonale I26.99 Pulmonary embolism type: other Chronicity: acute Acute cor pulmonale presence: without acute cor pulmonale VIOLETTA (obstructive sleep apnea) G47.33 04/07/18 1533 <Electronically signed by Flavia BHATIA> Date Flavia BHATIA Cosigner Signature: Date (if applicable) CC: Chevy Matthew 12 LEAD ELECTROCARDIOGRAM Observed: 03/29/2018 Status: F Source: [place] 2:59 PM [facility] [place] [facility] [facility] Cardiovascular Services [address] [place] [address] 12 Lead EKG 03/26/18 0230 MR#: [id number] Acct: [id number] Name: SHARRON CUMMINGS Rep #: [id number] : 1945 72 From: Paulino Kimball MD Attending Dr: Frank Moran MD Status: DIS IN Ordering Dr: Will Swartz MD Date: 03/26/18 Location: [facility] Sex: F C Admitted: 03/25/18 Test Reason : RHY CHANGE Blood Pressure : / mmHG Vent. Rate : 080 BPM Atrial Rate : 080 BPM P-R Int : 194 ms QRS Dur : 074 ms QT Int : 386 ms P-R-T Axes : 050 047 143 degrees QTc Int : 445 ms Normal sinus rhythm Possible Left atrial enlargement T wave abnormality, consider lateral ischemia Abnormal ECG When compared with ECG of 25-MAR-2018 15:38, MANUAL COMPARISON REQUIRED, DATA IS UNCONFIRMED Confirmed by PAULINO KIMBALL ([id number]), supervising editor news reel MEERA ARAGON ([id number]) on 03/29/2018 2:59:17 PM Referred By: NETO Confirmed By:PAULINO KIMBALL 03/29/18 1459 Date Paulino Kimball MD CC: Frank Moran MD; Chevy Matthew; Will Swartz MD Signed 12 LEAD ELECTROCARDIOGRAM Observed: 03/29/2018 Status: F Source: [place] 2:27 PM [facility] [place] [facility] Cardiovascular Services [address] [place] [address] 12 Lead EKG 03/25/18 1538 MR#: [id number] Acct: [id number] Name: SHARRON CUMMINGS Rep #: [id number] : 1945 72 From: Paulino Kimball MD Attending Dr: Frank Moran MD Status: DIS IN Ordering Dr: Devin Evans MD Date: 03/25/18 Location: [facility] Sex: F C Admitted: 03/25/18 Test Reason : SOB Blood Pressure : / mmHG Vent. Rate : 114 BPM Atrial Rate : 114 BPM P-R Int : 160 ms QRS Dur : 072 ms QT Int : 324 ms P-R-T Axes : 063 054 093 degrees QTc Int : 446 ms Sinus tachycardia Possible Left atrial enlargement Nonspecific ST and T wave abnormality Abnormal ECG Confirmed by PAULINO KIMBALL ([id number]), supervising editor news reel MEERA ARAGON ([id number]) on 03/29/2018 2:27:13 PM Referred By: JOEL Confirmed By:PAULINO KIMBALL 03/29/18 1427 Date Pauilno Kimball MD CC: Frank Moran MD; Devin Evans MD; Chevy Matthew Signed ECHOCARDIOGRAM COMPLETE Observed: 03/26/2018 Status: F Source: [place] 1:49 PM [facility] [place] [facility] [facility] Cardiovascular Services [address] [place] [address] Echo Complete 03/26/18928 MR#: [id number] Acct: [id number] Name: SHARRON CUMMINGS Rep #: [id number] : 1945 72 From: Paulino Kimball MD Attending Dr: Frank Moran MD Status: DIS IN Ordering Dr: Chantale Munroe Date: 03/25/18 Location: [facility] Sex: F C Admitted: 03/25/18 Reason For Study: Emboli Procedure This was a 2D Doppler, Color Flow transthoracic echocardiogram. Unable to use Definity due to increased pressures. Exam performed portable in patient room. Left Ventricle Normal size and thickness. The estimated ejection fraction is 75 %. Stage 1 diastolic dysfunction. No regional wall motion abnormalities noted. Right Ventricle Normal size and thickness. Normal systolic function. Atria Normal left atrium. Normal right atrium. Normal atrial septum. Mitral Valve Mild diffuse mitral valve thickening. Mild mitral annular calcification extending into the posterior leaflet. Mild (1+) mitral valve insufficiency. Tricuspid Valve Normal tricuspid valve. Mild (1+) tricuspid valve insufficiency. Right ventricular systolic pressure estimated to be 90 mmHg. Severe pulmonary hypertension. Aortic Valve Normal aortic valve. Trisinus/trileaflet aortic valve. Pulmonic Valve Normal pulmonic valve. Great Vessels Normal aortic root. Normal arch. Normal inferior vena cava. Inferior vena cava collapse with sniff. Pericardium/Pleural No pericardial effusion. MMode/2D Measurements AND Calculations LVIDd: 3.4 cm IVSd: 1.5 cm Ao root diam: 3.4 cm LVIDs: 1.9 cm LVPWd: 1.6 cm LA dimension: 4.3 cm RVDd: 3.0 cm FS: 45.3 % LAV(MOD-sp4): 39.6 ml LA A4 area: 16.2 cm2 RA A4 area: 13.4 cm2 Time Measurements MV dec time: 0.24 sec Doppler Measurements AND Calculations MV E max tripp: 59.9 cm/sec Lat Peak E' Tripp: 7.0 cm/sec Med Peak E' Tripp: 4.3 cm/sec MV A max tripp: 114.7 cm/sec E/E' lat: 8.6 E/E' med: 13.8 MV E/A: 0.52 MV V2 max: 118.5 cm/sec MV P1/2t max tripp: 101.2 cm/sec Ao V2 max: 157.9 cm/sec MV max P.6 mmHg MV P1/2t: 64.0 msec Ao max P.0 mmHg MV V2 mean: 66.4 cm/sec MV dec slope: 462.9 cm/sec2 Ao V2 mean: 122.2 cm/sec MV mean P.1 mmHg MVA(P1/2t): 3.4 cm2 Ao mean P.7 mmHg MV V2 VTI: 26.5 cm Ao V2 VTI: 35.6 cm LV V1 max: 144.5 cm/sec PA V2 max: 78.7 cm/sec TR max tripp: 462.0 cm/sec LV V1 max P.4 mmHg TR max P.4 mmHg LV V1 mean P.5 mmHg LV V1 mean: 96.6 cm/sec LV V1 VTI: 28.9 cm Interpretation Summary The estimated ejection fraction is 75 %. Stage 1 diastolic dysfunction. Mild (1+) mitral valve insufficiency. Mild (1+) tricuspid valve insufficiency. Right ventricular systolic pressure estimated to be 90 mmHg. Severe pulmonary hypertension. Compared to echo report dated 03/28/2009, LV function has remained the samre, but pt now has severe pulmonary HTN. Ordering Physician: SRIRAM Jones Referring Physician: Chevy Matthew Performed By: William San RCS 03/26/18 1348 Date Paulino Kimball MD CC: SRIRAM Munroe; Frank Moran MD; Chevy Matthew Date Dictated: 03/26/18928 Date Transcribed: 03/26/181347 Title Examiner: Signed DISCHARGE SUMMARY Observed: 03/26/2018 Status: F Source: [place] 12:49 PM [facility] [place] [facility] Medical Records Department [address] [place] [address] Discharge Summary 03/26/18 1142 MR#: [id number] Acct: [id number] Name: SHARRON CUMMINGS Rep #: [id number] : 1945 72 From: Chantale BHATIA PCP: Chevy Matthew Status: ADM IN Location: [place] [id number] ADDENDUM by SRIRAM Munroe on 03/26/18 at 1209 Code Visit Due to cost of medication, patient was switched from Xarelto to Eliquis at discharge. She will take Eliquis 10 mg twice daily for 7 days followed by Eliquis 5 mg twice daily thereafter. 03/26/18 1209 <Electronically signed by Chantale BHATIA> Date Chantale Munroe cc: SRIRAM Munroe; Frank Moran MD; Chevy Matthew * Signed Addendum entered and electronically signed by SRIRAM Jones 03/26/18 12:09: Code Visit Due to cost of medication, patient was switched from Xarelto to Eliquis at discharge. She will take Eliquis 10 mg twice daily for 7 days followed by Eliquis 5 mg twice daily thereafter. Original Note: <Chantale Munroe - Last Filed: 03/26/18 12:09> Discharge Date and Diagnosis Date of Admission: 03/25/18 Date of Discharge: 03/26/18 - Primary Discharge Diagnosis 1. Acute extensive bilateral pulmonary embolism with associated acute hypoxic respiratory insufficiency and acute left lower extremity DVT 2. Sinus tachycardia, secondary to #1 3. New diagnosis type 2 diabetes mellitus 4. Hypertension, poorly controlled 5. Hyperlipidemia 6. Chronic kidney disease stage III 7. Gout - Secondary Discharge Diagnosis Chronic Problems Hypertension (Chronic) Hyperlipidemia (Chronic) Gout (Chronic) Hospital Course and Treatment Imaging Results: Diagnostic Data Chest CTA 03/25/18 15:34 IMPRESSION: Extensive bilateral pulmonary emboli N.B. : The above information has been verbally conveyed by Eric Vela MD to Devin Evans MD, on 03/25/2018 16:59:27 (ET). Electronically Signed: Eric Vela MD at 16:51 EST , Service support , Dr. Ghotra- Pulmonary Medicine Operations: None Procedures: 2-D Echocardiogram Summary of Care Provided: The patient is a 72 year old F admitted 03/25/2018 due to shortness of breath. 1. Acute extensive bilateral pulmonary emboli with associated acute hypoxia-CT of chest shows extensive bilateral pulmonary emboli. 8 x 15 mm spiculated right perihilar lesion. Patient reports sedentary lifestyle. No smoking history. No recent surgeries. Hypercoagulable panel completed in ER. Duplex ultrasound positive for left lower extremity DVT. Patient will require supplemental oxygen at discharge. She will continue supplement oxygen to maintain O2 at or above 90%. She is ambulatory in the home. Pulmonary medicine consulted due to pulmonary lesion as noted above. Patient will have repeat CT of chest as outpatient in 3 months. Follow-up with pulmonary medicine in 2 weeks. Echocardiogram completed and will reviewed prior to discharge. Patient discharged on Xarelto 15 mg twice a day which she will continue for 21 days. Following 21 days, patient will take Xarelto 20 mg daily which will be further prescribed by primary care physician. Follow-up with primary care physician in 1 week. 2. Sinus tachycardia-secondary to 1. Resolved. Continue home metoprolol regimen. 3. CKD stage III-stable. 4. Hypertension-elevated during admission. Continue home metoprolol regimen. Recent started on amlodipine 5 mg daily. Patient will need further monitoring as outpatient with adjustment as found appropriate. 5. Hyperlipidemia-continue statin, fenofibrate. 6. Gout-states she takes fish oil supplementation for this. 7. New diagnosis type 2 diabetes mellitus-hemoglobin A1c 6.6%. Patient started on low-dose glipizide 2.5 mg daily. Recommend repeat hemoglobin A1c by primary care physician. Recommend carb control diet. General: Alert, Oriented x3, Cooperative, No apparent distress HEENT: Atraumatic, PERRLA, EOMI, Normocephalic Neck: Supple, No JVD, Negative Carotid Bruits Lungs: Clear to auscultation, Diminished, Tachypneic Cardiovascular: Regular Rhythm, Normal S1, Normal S2, No murmurs, Tachycardic Abdomen: Bowel Sounds Present, Soft, Non Tender, Non-Distended, Obese Extremities: No clubbing, No cyanosis, No edema, Capillary Refill Less than 3 Seconds Skin: No rashes, No breakdown Musculoskeletal: No Tenderness to Palpation of Joints or Extremities Neurological: Cranial nerves II-XII grossly intact, Neuro grossly intact Psych/Mental Status: Normal Affect, Appropriate Patient seen exam prior to discharge. Physical assessment as noted above. Patient is stable for discharge home with the follow-up her conditions as noted above. This patient was seen by SRIRAM Jones under the supervision of Dr. Moran. - Physical Exam Vital Signs Temp Pulse Resp BP Pulse Ox 97.6 F L 88 18 162/54 H 91 03/26/18 09:00 03/26/18 11:00 03/26/18 09:00 03/26/18 09:00 03/26/18 11:33 Oxygen Flow Rate (L/min) [ 3 AMBULATION with Oxygen] Oxygen Flow Rate (L/min) 3 Oxygen Delivery Method Room Air Weight: 171 lb 11.841 oz Body Mass Index (BMI) 31.4 Intake and Output for Last 24 Hours Intake Total 1029 / 1029 522 / 522 Balance 1029 / 1029 522 / 522 Laboratory Tests Past 24 Hrs WBC 10.9 RBC 5.42 H Hgb 15.4 H Hct 47.9 H MCV 88.4 WBC RBC Hgb Hct MCV MCH MCHC RDW RDW Differential Plt Count WBC RBC Hgb Hct MCV MCH MCHC RDW RDW Differential Plt Count MPV Immature Gran % (Auto) Discharge Diet: Carb Control Diet Discharge Activity: Return to Normal Activity Call your doctor if you observe: Shortness of breath, Dizziness, Fainting spells, Chest pain Home Medications: Medications to take at Discharge Aspirin [Aspir-Low] 81 mg PO DAILY 09/07/17 Atorvastatin Calcium [Lipitor] 80 mg PO QHS 09/07/17 Fenofibrate,Micronized [Fenofibrate] 134 mg PO DAILY 09/07/17 Metoprolol Tartrate [Lopressor (beta eleanor)] 50 mg PO BID 09/07/17 Turton-3 Fatty Acids [Fish Oil Concentrate] 1,000 mg PO DAILY 09/07/17 Pyridoxine HCl [Vitamin B-6] 100 mg PO DAILY 09/07/17 Venlafaxine HCl [Venlafaxine HCl ER] 150 mg PO DAILY 09/07/17 Daily Defense 2 cap PO DAILY 03/25/18 Fidelia C 1 tab PO DAILY 03/25/18 Amlodipine [Norvasc] 5 mg PO DAILY #30 tablet 03/26/18 Apixaban [Eliquis] 5 mg PO BID #70 tablet 03/26/18 Glipizide [Glipizide ER] 2.5 mg PO DAILY #30 tab.er.24 03/26/18 Following Prescrptions Were Given to Patient: Amlodipine [Norvasc] 5 mg PO DAILY #30 tablet Apixaban [Eliquis] 5 mg PO BID #70 tablet Glipizide [Glipizide ER] 2.5 mg PO DAILY #30 tab.er.24 Primary Care Physician: Chevy Matthew [Primary Care Provider] - Please follow up with your Primary Care Physician in: 1 Week Please Follow Up With: Esau Ghotra DO When: 2 Weeks Disposition: Home Minutes spent on discharge:: 35 Patient Condition:: Stable Medical Necessity - Tobacco Use Smoking Status: Never smoker Tobacco Use: Secondhand Meaningful Use Info Meaningful Use Diagnoses (Choose all that apply): VTE - VTE Anticoag overlap given w/in hospital stay or rx'd at dc?: Yes Pt receive overlap for 5 days?: Yes <Frank Moran - Last Filed: 03/26/18 12:48> Discharge Date and Diagnosis - Secondary Discharge Diagnosis Chronic Problems Hypertension (Chronic) Hyperlipidemia (Chronic) Gout (Chronic) Hospital Course and Treatment Summary of Care Provided: This patient was seen in conjunction with SRIRAM Jones . I have independently interviewed and examined the patient and reviewed pertinent historical, laboratory, and other data. Please refer to SRIRAM Jones note for details of this patient's presentation, findings, and recommendations. I have reviewed SRIRAM Jones note and concur with documented findings. In brief, patient is a 72-year-old lady who presented with shortness of breath. Her diagnostic workup was consistent with acute extensive bilateral pulmonary embolism as well as DVT involving the left peroneal vein. Admitted to a monitored bed started on systemic anticoagulation. Patient condition did remain stable for discharge a day after her admission on Xarelto Patient was seen and examined on the day of her discharge; she appears comfortable at rest lungs diminished to auscultation no wheezes. Hospital course as elicited above by Chantale Munroe next Time spent on discharge process including going over her medications and instructions; 35 minutes - Physical Exam Vital Signs Temp Pulse Resp BP Pulse Ox 97.6 F L 88 18 162/54 H 91 03/26/18 09:00 03/26/18 11:00 03/26/18 09:00 03/26/18 09:00 03/26/18 11:33 Oxygen Flow Rate (L/min) [ 3 AMBULATION with Oxygen] Oxygen Flow Rate (L/min) 3 Oxygen Delivery Method Room Air Weight: 77.9 kg Body Mass Index (BMI) 31.4 Intake and Output for Last 24 Hours Intake Total 1029 / 1029 1297 / 1297 Balance 1029 / 1029 1297 / 1297 Laboratory Tests Past 24 Hrs WBC 10.9 RBC 5.42 H Hgb 15.4 H Hct 47.9 H MCV 88.4 WBC RBC Hgb Hct MCV MCH MCHC RDW RDW Differential Plt Count WBC RBC Hgb Hct MCV MCH MCHC RDW RDW Differential Plt Count MPV Immature Gran % (Auto) Code Visit Inpatient E AND M: [id number] Disch Hosp 03/26/18 1155 <Electronically signed by Chantale BHATIA> Date Chantale BHATIA Cosigner Signature (if applicable): Date CC: SRIRAM Munroe; Frank Moran MD; Chevy Matthew Signed DISCHARGE INSTRUCTION Observed: 03/26/2018 Status: F Source: [place] 12:09 PM [facility] [place] [facility] Medical Records Department [address] [place] [address] Instructions for Home/Discharge Instructions 03/26/18 1128 MR#: [id number] Acct: [id number] Name: BRIANSHARRON SCHMIDT Geoffrey Rep #: [id number] : 1945 72 From: Chantale BHATIA PCP: Chevy Matthew Status: ADM IN ADDENDUM by SRIRAM Munroe on 03/26/18 at 1209 Due to cost of medication, patient was switched from Xarelto to Eliquis at discharge. She will take Eliquis 10 mg twice daily for 7 days followed by Eliquis 5 mg twice daily thereafter. 03/26/18 1209 Date Chantale Munroe cc: Esau Ghotra D.O.; Chevy Matthew * Signed ADDENDUM by SRIRAM Munroe on 03/26/18 at 1145 Amlodipine 5 mg daily added to home medication regimen. 03/26/18 1145 Date Chantale Munroe cc: Esau Ghotra D.O.; Chevy Matthew * Signed - Discharge Diagnoses Current Active Problems: Current Active and Chronic Problems Bilateral Pulmonary Embolism Hypertension (Chronic) Hyperlipidemia (Chronic) Gout (Chronic) You will use the following diet at home:: Calorie/Carbohydrate Controlled (specify 1200, 1400, etc) Discharge Activity: Return to Normal Activity Call your doctor if you observe: Shortness of breath, Dizziness, Fainting spells, Chest pain Allergies/Adverse Reactions: Allergies estrogens, conjugated [From Premarin] Adverse Reaction (Verified 03/25/18 15:51) Other isosorbide [From Imdur] Adverse Reaction (Verified 03/25/18 15:51) Other levofloxacin [From Levaquin] Adverse Reaction (Verified 03/25/18 15:51) Other solifenacin [From Vesicare] Adverse Reaction (Verified 03/25/18 15:51) Other sulfamethoxazole [From Bactrim] Adverse Reaction (Verified 03/25/18 15:51) Other trimethoprim [From Bactrim] Adverse Reaction (Verified 03/25/18 15:51) Other Medications to take at Discharge Aspirin [Aspir-Low] 81 mg PO DAILY 09/07/17 Atorvastatin Calcium [Lipitor] 80 mg PO QHS 09/07/17 Fenofibrate,Micronized [Fenofibrate] 134 mg PO DAILY 09/07/17 Metoprolol Tartrate [Lopressor (beta eleanor)] 50 mg PO BID 09/07/17 Turton-3 Fatty Acids [Fish Oil Concentrate] 1,000 mg PO DAILY 09/07/17 Pyridoxine HCl [Vitamin B-6] 100 mg PO DAILY 09/07/17 Venlafaxine HCl [Venlafaxine HCl ER] 150 mg PO DAILY 09/07/17 Daily Defense 2 cap PO DAILY 03/25/18 Fidelia C 1 tab PO DAILY 03/25/18 Glipizide [Glipizide ER] 2.5 mg PO DAILY #30 tab.er.24 03/26/18 Rivaroxaban [Xarelto] 15 mg PO BIDCM #41 tablet 03/26/18 The following prescriptions were given: Glipizide [Glipizide ER] 2.5 mg PO DAILY #30 tab.er.24 Rivaroxaban [Xarelto] 15 mg PO BIDCM #41 tablet Primary Care Physician: Chevy Matthew [Primary Care Provider] - Please follow up with your Primary Care Physician in: 1 Week Test Results: Test results from this visit will be discussed in further detail at your follow-up appointment, if applicable. Please Follow Up With: Esau Ghotra DO When: 2 Weeks Proposed Discharge Date: 03/26/18 03/26/18 1142 <Electronically signed by Chantale BHATIA> Date Chantale BHATIA CC: Esau Ghotra D.O.; Chevy Matthew VENOUS DUPLEX LOWER Observed: 03/26/2018 Status: F Source: [place] EXTREMITY 11:35 AM [facility] [place] [facility] Cardiovascular Services [address] [place] [address] Venous Duplex - Josué Extrem 03/26/18 1049 MR#: [id number] Acct: [id number] Name: SHARRON CUMMINGS Rep #: [id number] : 1945 72 From: Topher Rice MD Attending Dr: Frank Moran MD Status: ADM IN Ordering Dr: Chantale Munroe Date: 03/26/18 Location: [facility] Sex: F C Admitted: 03/25/18 Reason For Study: PULMONARY EMBOLISM RIGHT LEFT GSV is normal. GSV is normal. CFV is compressible, spontaneous, phasic, CFV is compressible, spontaneous, phasic, competent and demonstrates normal competent, and demonstrates normal augmentation. augmentation. FV is compressible, spontaneous, phasic, FV is compressible, spontaneous, phasic, competent and demonstrates normal competent and demonstrates normal augmentation. augmentation. POP V is compressible, spontaneous, phasic, POP V is compressible, spontaneous, phasic, competent and demonstrates normal competent and demonstrates normal augmentation. augmentation. T/P Trunk is compressible. T/P Trunk is compressible. PTV is compressible. PTV is compressible. RT PerV is compressible. LT PERV is dilated AND non compressible; Procedure appears C/W acute DVT. Exam performed portable in patient room. A preliminary report was called and/or faxed to [facility] AND Dr. Moran. <> Interpretation Summary There is no evidence of right lower extremity deep vein thrombosis. Acute deep venous thrombosi left peroneal vein. Patent and compressible bilateral great saphenous veins. Ordering Physician: SRIRAM Jones Referring Physician: Chevy Matthew Performed By: Kianna Capone, CASE, RVT 03/26/18 1135 Date Topher Rice MD CC: SRIRAM Munroe; Frank Moran MD; Chevy Matthew Date Dictated: 03/26/18 1049 Date Transcribed: 03/26/18 113 Title Examiner: Signed CONSULTATION Observed: 03/26/2018 Status: F Source: [place] 11:07 AM [facility] [place] Medical Records Department [address] [place] [address] Consultation 03/26/18 0757 MR#: [id number] Acct: [id number] Name: SHARRON CUMMINGS Rep #: [id number] : 1945 72 From: Esau Ghotra DO PCP: Chevy Matthew Status: ADM IN Y Location: [place] [id number] Reason for Consult Date of Consultation: 03/26/18 Reason for Consultation: Bilateral pulmonary emboli History of Present Illness: The patient is a 72-year-old female, with a history as outlined below, who presented to the emergency department on March 25 with complaints of progressive dyspnea over 3 days. The patient is a lifelong non-smoker and denies a history of COPD. She does report having been diagnosed with asthma as a child. She denies any recent immobility or prolonged travel. She denies a history of personal venous thromboembolic disease. However, she does report that her mother did have several blood clots throughout her life. On presentation to the emergency department, the patient was noted to be afebrile, mildly hypertensive, tachycardic and tachypneic and a bit hypoxic on room air. Laboratory evaluation revealed no evidence of a leukocytosis. Chemistry profile was notable for acute kidney injury with creatinine 1.27. Troponin was negative. BNP was 74. A CTA chest was obtained which revealed bilateral pulmonary emboli along with an 8 x 15 mm spiculated right perihilar lesion. The patient was subsequently started on anticoagulation regimen with Xarelto and admitted to the progressive care unit for ongoing management. Past Medical History Past Medical History (Chronic Problems): Chronic Problems Hypertension (Chronic) Hyperlipidemia (Chronic) Gout (Chronic) Allergies estrogens, conjugated [From Premarin] Adverse Reaction (Verified 03/25/18 15:51) Other isosorbide [From Imdur] Adverse Reaction (Verified 03/25/18 15:51) Other levofloxacin [From Levaquin] Adverse Reaction (Verified 03/25/18 15:51) Other solifenacin [From Vesicare] Adverse Reaction (Verified 03/25/18 15:51) Other sulfamethoxazole [From Bactrim] Adverse Reaction (Verified 03/25/18 15:51) Other trimethoprim [From Bactrim] Adverse Reaction (Verified 03/25/18 15:51) Other Home Medications: Ambulatory Orders Medication Instructions Recorded Aspirin [Aspir-Low] 81 mg PO DAILY 09/07/17 Atorvastatin Calcium [Lipitor] 80 mg PO QHS 09/07/17 Fenofibrate,Micronized 134 mg PO DAILY 09/07/17 Surgical History: tonsillectomy, - - Tubal ligation, cataract surgery, skin biopsies Psychiatric History: No pertinent psych hx [employer] History: No pertinent HORSE [employer] history Lives: Spouse/ Significant Other Smoking Status: Never smoker Tobacco Use: Secondhand Alcohol: None Drugs: None - *Family History Maternal History Items: Heart Disease Paternal History Items: Heart Disease Review of Systems Constitutional: Denies: Chills, Fever Eyes: Denies: Blurred vision, Double vision HEENT: Denies: Head Aches, Sinus Congestion, Sinus Drainage Cardiovascular: Reports: Chest Pain Respiratory: Reports: Shortness of Breath. Denies: Sputum production, Wheezing Gastrointestinal: Denies: Abdominal Pain, Nausea, Vomiting Genitourinary: Denies: Dysuria Musculoskeletal: Denies: Joint Pain, Joint Tenderness Skin: Denies: Rash, Wounds Neurological: Denies: Numbness, Tingling, Focal weakness Psychiatric: Denies: Anxiety, Depression, Homicidal Ideations, Suicidal Ideations Hematologic/ Lymphatic: Denies: Easy Bruising, Easy Bleeding Objective: The patient's most recent lab work, culture data and imaging studies have all been personally reviewed. - Physical Exam General: Alert, Oriented x3, Cooperative, No apparent distress HEENT: Atraumatic, PERRLA, Normocephalic Oral: Moist Mucosa, No Gingival or Mucosal Lesions/ Ulcerations Neck: Supple, No Nodes, Trachea Midline Lungs: No rhonchi, No wheeze, No rales, Diminished Cardiovascular: Regular rate, Regular Rhythm, Normal S1, Normal S2, No murmurs Abdomen: Bowel Sounds Present, Soft, Non Tender Extremities: No clubbing, No cyanosis, No edema Skin: No breakdown Musculoskeletal: No Tenderness to Palpation of Joints or Extremities, No Muscle Wasting Lymphatic: No Cervical, Supraclavicular, or Inguinal Adenopathy Neurological: Cranial nerves II-XII grossly intact, Neuro grossly intact Psych/Mental Status: Alert and oriented to time, place, person, mood and affect Vital Signs Temp Pulse Resp BP Pulse Ox 36.9 C 86 18 159/76 H 90 03/26/18 02:25 03/26/18 07:00 03/26/18 02:25 03/26/18 02:25 03/26/18 07:25 Oxygen Flow Rate (L/min) 3 Oxygen Delivery Method Nasal Cannula Weight: 171 lb 11.841 oz Body Mass Index (BMI) 31.4 Intake and Output for Last 24 Hours Intake Total 1029 / 1029 522 / 522 Balance 1029 / 1029 522 / 522 Laboratory Tests Past 24 Hrs WBC 10.9 RBC 5.42 H Hgb 15.4 H Hct 47.9 H MCV 88.4 WBC RBC Hgb Hct MCV MCH MCHC RDW RDW Differential Plt Count WBC RBC Hgb Hct MCV MCH MCHC RDW RDW Differential Plt Count MPV Immature Gran % (Auto) Clinical Impression(s) from Imaging Studies Chest CTA 03/25/18 15:34 IMPRESSION: Extensive bilateral pulmonary emboli N.B. : The above information has been verbally conveyed by Eric Vela MD to Devin Evans MD, on 03/25/2018 16:59:27 (ET). Electronically Signed: Eric Vela MD at 16:51 EST , Service support , Assessment/Plan RECOMMENDATIONS: 1. Okay to discharge on Xarelto from my perspective. 2. Perform walking oximetry study prior to consideration for discharge from the hospital. 3. Recommend repeating CT chest in 3 months. 4. The patient is to follow up in the pulmonary medicine clinic in 2 weeks with our nurse practitioner. IMPRESSIONS: 1. Acute hypoxic respiratory insufficiency secondary to bilateral pulmonary emboli The patient presented to the ED with shortness of breath in the setting of unprovoked bilateral pulmonary emboli. She was never hemodynamically unstable. She has been started on Xarelto at this time. Recommend continuing for 3-6 months uninterrupted. I see no indication in obtaining an echocardiogram or lower extremity Dopplers. Would recommend performing a walking oximetry study prior to consideration for discharge from the hospital. Hypercoagulable panel was obtained prior to the initiation of anticoagulation and is currently pending. 2. Nonspecific pulmonary nodule The patient's CTA chest was personally reviewed. The right perihilar region is not quite solid in nature, and is therefore indeterminate. I would recommend that the patient have a repeat CT chest in 3 months for further evaluation. 3. Depression/hyperlipidemia/hypertension Complicates care, management, recovery and prognosis. Likely okay to continue home medications. This note was generated with [employer] dictation software. It may contain incorrect words, spelling, and punctuation that were not noted in checking the note before signing. Code Visit Inpatient E AND M: 66665 Init Hosp L3 03/26/18 1107 <Electronically signed by Esau Ghotra DO> Date Esau Ghotra DO Cosigner Signature (if applicable): Date CC: Esau Ghotra D.O.; Chevy Matthew Signed BASIC METABOLIC Collected: 03/26/2018 Status: F Source: [place] PROFILE (BMP) 5:25 AM [facility] [place] CODE TESTS RESULT OUT OF RANGE REFERENCE UNITS LAB L501.0100 74-106 mg/dL Normal GLU 99 Result Comment: Please note revised GLUCOSE reference range effective 2017. LAB L501.1000 7-18 mg/dL High BUN 22 LAB L501.1100 0.55-1.02 mg/dL High CREAT,SERUM 1.05 Result Comment: The validity of the calculated GFR AND GFRAA in patients over 70 years has not been determined. Clinical correlation is essential. LAB L501.1110 >60 mL/min Low EST GFR 55 Result Comment: Non- GFR Calc LAB L501.1115 >60 mL/min Normal EST GFR - AA 67 Result Comment: GFR Calc LAB L501.1255 ml/min Normal Estimated CRCL 39.43 LAB L501.1300 10-20 RATIO High BUN/CRE 21.0 LAB L501.2200 8.5-10 mg/dL Normal .1 CA 8.5 LAB L501.5300 136-14 mmol/L Normal 5 NA 142 LAB L501.5600 3.5-5. mmol/L Normal 1 K 4.2 Result Comment: Slight Hemolysis, Result may be falsely increased. LAB L501.5900 98-107 mmol/L Normal CL 107 LAB L501.6100 21.0-32.0 mmol/L Normal CO2 26.0 LAB L501.6200 5-15 Normal 9 GAP Performed By: #### L500.2500, L500.4100 #### [facility] [address] [place], [place], [address] LIPID PROFILE Collected: 03/26/2018 Status: F Source: [place] 5:25 AM [facility] [place] TYPE CODE TESTS RESULT OUT OF RANGE REFERENCE UNITS LAB L501.4900 200 mg/dL Normal CHOL 124 Result Comment: <200 mg/dL Desirable 200-240 mg/dL Borderline >240 mg/dL High Risk LAB L501.5000 mg/dL Normal TRIG 161 Result Comment: The drugs N-Acetylcysteine and Metamizole may falsely depress this assay. Serum Triglycerides Reference Interval Normal <150 mg/dL Borderline high 150 - 199 mg/dL High 200 - 499 mg/dL Very High > or = 500 mg/dL LAB L501.6400 mg/dL Low HDL 30 Result Comment: The drugs N-Acetylcysteine and Metamizole may falsely depress this assay. Reference Range HDL <40 mg/dL Low HDL Cholesterol HDL >or= 60 mg/dL High HDL Cholesterol LAB L501.6500 0-130 mg/dL Normal LDL 62 LAB L501.6600 5-40 mg/dL Normal VLDL 32 Performed By: #### L500.2500, L500.4100 #### [facility] [address] [place], [address] TROPONIN-I Collected: 03/25/2018 Status: F Source: [place] 11:55 PM [facility] [place] Order Comment: 'TROP' Serial specimen #1, #2 or #3: 3 CHANGE TIME PER NURSE ARJUN. SECOND SPECIMEN WAS COLLECTED AT A LATER TIME DUE TO BEING A HARD STICK. SPECIMEN OBTAINED FROM LINE DRAW TYPE CODE TESTS RESULT OUT OF RANGE REFERENCE UNITS LAB L501.4010 <0.045 ng/mL Normal 0.039 TROPONIN-I Result Comment: TROPONIN-I EXPECTED VALUES <0.045 Negative 0.045 - 0.590 Consistent with Cardiac Damage > OR = 0.600 Critical Value Not every elevated troponin is indicative of MT. These values should be used with clinical judgement in examining the patient's clinical picture for diagnosis. To establish a diagnosis of MT versus myocardial injury, there must be a demonstrated rise and/or fall in the troponin values, in addition to ischemic symptoms, EKG changes, new regional wall motion abnormality, and/or angiographical evidence. PLEASE NOTE: REFERENCE RANGES EDITED 17 Performed By: #### L501.4010 #### [facility] [address] [place], [address] TROPONIN-I Collected: 03/25/2018 Status: F Source: [place] 9:00 PM [facility] [place] Order Comment: 'TROP' Serial specimen #1, #2 or #3: 2 UTOx2. NURSE BEHAVIORAL TECHNICIAN HAS BEEN NOTIFIED. SHE WILL DRAW THE PATIENT SOON SHE CAN. TYPE CODE TESTS RESULT OUT OF RANGE REFERENCE UNITS LAB L501.4010 <0.045 ng/mL Normal 0.034 TROPONIN-I Result Comment: TROPONIN-I EXPECTED VALUES <0.045 Negative 0.045 - 0.590 Consistent with Cardiac Damage > OR = 0.600 Critical Value Not every elevated troponin is indicative of MT. These values should be used with clinical judgement in examining the patient's clinical picture for diagnosis. To establish a diagnosis of MT versus myocardial injury, there must be a demonstrated rise and/or fall in the troponin values, in addition to ischemic symptoms, EKG changes, new regional wall motion abnormality, and/or angiographical evidence. PLEASE NOTE: REFERENCE RANGES EDITED 17 Performed By: #### L501.4010 #### [facility] [address] [place], [address] HEMOGLOBIN A1C Collected: 03/25/2018 Status: F Source: [place] 9:00 PM [facility] [place] TYPE CODE TESTS RESULT OUT OF RANGE REFERENCE UNITS LAB L501.9985 4.2-6.3 % High HGB A1C 6.6 Performed By: #### L501.9985 #### [facility] [address] [place], [address] HISTORY AND PHYSICAL Observed: 03/25/2018 Status: F Source: [place] EXAM 5[facility]44 PM [facility] Medical Records Department [address] [place] [address] History and Physical 03/25/18 1654 MR#: [id number] Acct: [id number] Name: SHARRON CUMMINGS Rep #: [id number] : 1945 72 From: Chantale Munroe [employer] PCP: Chevy Matthew Status: ADM IN Y Location: [place] [address] ADDENDUM by Deneen Zepeda on 03/25/18 at 1744 Code Visit ATTENDING PHYSICIAN NOTE: I have seen and examined the patient independently and agree with the assessment, plan, history per Chantale Munroe as noted. Chief Complaint: Hypoxia at PCP office, ongoing dyspnea worse with exertion for several weeks, lower bilateral chest discomfort. The patient is a 72 y/o F w/ PMHx: HTN, HLD, Obesity, Gout, CKD stage III (baseline Cr 0.9) who presents to the [facility] ED on 03/25/18 w/ history of ongoing dyspnea, worsened with exertion over the last several weeks but more severe over the last 3 days with mild URI symptoms in addition to bilateral lower chest discomfort prompting evaluation per PCP with noted PCP oxygenation in the office 81% prompting referral to the ED. In the ED workup included T 97.8, initial heart rate 124, BP 164/75, respiratory rate 34, 83% on room air--> 94% on 3 L nasal cannula, CBC with W BC 10.9, hemoglobin 15.4, platelet 276 without shift, Ending hypercoagulable panel, BMP notable for BUN/creatinine 30/1.27, glucose 130, lactic acid 1.6, troponin 0 0.037, BNP 74, EKG with no acute evidence of ischemia, CTPA w/ extensive bilateral pulmonary emboli and an 8 x 15 mm spiculated right perihilar lesion. In the ED patient administered therapeutic lovenox. Labs, Allergies, Home medications, Social Hx, PSurgHx, Family Hx per note below. Admission Review of Systems: CONSTITUTIONAL: No weight loss, fever, chills, weakness or fatigue. HEENT: Eyes: No visual loss, blurred vision, double vision or yellow sclerae. Ears, Nose, Throat: No hearing loss, sneezing, congestion, runny nose or sore throat. SKIN: No rash or itching, lesions, wounds. CARDIOVASCULAR: No chest pain, chest pressure or chest discomfort, palpitations, edema, orthopnea, syncopal events. RESPIRATORY: No shortness of breath, cough or sputum, wheezing, hemoptysis. GASTROINTESTINAL: No anorexia, nausea, vomiting or diarrhea, abdominal pain, melena, BRBPR. GENITOURINARY: No dysuria, frequency, urgency or retention. NEUROLOGICAL: No headache, dizziness, syncope, paralysis, ataxia, numbness or tingling in the extremities, focal weakness, change in bowel or bladder control, seizure. MUSCULOSKELETAL: No muscle, back pain, joint pain or stiffness. HEMATOLOGIC: No anemia, bleeding or bruising. LYMPHATICS: No enlarged nodes. No history of splenectomy. PSYCHIATRIC: No history of depression or anxiety. ENDOCRINOLOGIC: No reports of sweating, cold or heat intolerance. No polyuria or polydipsia. ALLERGIES: No history of asthma, hives, eczema or rhinitis. Admission VS: As noted below. Physical Examination: General: awake, alert, oriented x 3 and cooperative, seated upright in the ED bed in no apparent distress. Skin: normal color, turgor, no icterus, cyanosis. HEENT: AT/NC, EOMI, PERRLA, mildly dry MM, no carotid bruits or JVD noted. Lungs: Diminished BS BL, > bases, moderate effort, mild decrease BL bases, no rales, ronchi or wheezing. Heart: Tachycardic with regular rhythm; no gallop, rub audible. Abdomen: soft, obese, NTTP, ND, normal BS, no HSM. Extremities: no cyanosis, clubbing, or edema. Neurological: patient awake, alert, oriented x 3; cognitive function intact; pupils equally reactive to light and accomodation; cranial nerves II-XII grossly normal, moving all 4 extremities, no focal deficits, strength severely globally decreased secondary to acute presentation. Psychiatric: affect appears normal, no acute evidence of depressive or anxiety feelings. Assessment and Plan: The patient is a 72 y/o F w/ PMHx: HTN, HLD, Obesity, Gout, CKD stage III (baseline Cr 0.9) who presents to the [facility] ED on 03/25/18 w/ history of ongoing dyspnea, worsened with exertion over the last several weeks but more severe over the last 3 days with mild URI symptoms in addition to bilateral lower chest discomfort prompting evaluation per PCP with noted PCP oxygenation in the office 81% prompting referral to the ED. (1) Hypoxia, Dyspnea, chest pain secondary to BL Extensive Pulmonary Embolism: EKG without acute findings, Trop 0.037, BNP 74, CTPA w/ extensive bilateral pulmonary emboli and an 8 x 15 mm spiculated right perihilar lesion. Noted extensive family history of DVTs usually following events; however, several family members, nearly all from review. Patient notes no recent travel, no recent BL LE edema or pain. She notes exertional dyspnea for several weeks. Will admit to PCU, maintain on cardiac telemetry. Will obtain ECHO, BNP already obtained and normal as noted and BL LE DVT US. Hypercoaguable panel obtained in ED prior to administration anticoagulation w/ lovenox given atypical family history discussion despite age 72. Will continue therapeutic lovenox regimen with pending AM insurance oral regimen investigation. Likely will need oxygen supplementation upon discharge. PRN pain regimen. (2) Correction: PATIENT DOES NOT HAVE TRINA, only CKD stage III: Admission BUN/Cr 30/1.27, baseline Cr appear 1.9 from prior, gently hydrate, repeat BMP in AM. (3) Hyperglycemia: Admission glucose 130, likely stress response, hemoglobin A1c pending. Additional Co-morbidities: (4) Hypertension: Continue home regimen including metoprolol, PRN hydralazine. (5) hyperlipidemia: Continue home statin regimen. AM FLP. (6) Anxiety and depression: Continue home venlafaxine regimen. Inpatient E AND M: [id number] Init Hosp L3 03/25/18 3654 <Electronically signed by Deneen Zepeda > Date Deneen Zepeda cc: SRIRAM Munroe; Deneen Zepeda; Chevy Matthew * Signed Problem List (1) Hypertension Status: Chronic (2) Hyperlipidemia Status: Chronic (3) Gout Status: Chronic History of Present Illness Date of Admission: 03/25/18 Chief Complaint: Shortness of breath The patient is a 72 year old F who presents emergency room due to shortness of breath. Patient states she has had ongoing shortness of breath for a few months which has increased in severity over the past 3 days. She also states she has been fighting a cold over the past week with postnasal drainage, cough and general malaise. She denies lower extremity swelling or calf discomfort. Complains of chest tightness. Denies dizziness, lightheadedness. Reports family members including patient's daughter and mother had blood clots in the past. From her report, they seem provoked following surgery/injury. She denies known clotting disorder in the family. Her past medical history includes hypertension, hyperlipidemia, gout. Past Medical History Past Medical History (Chronic Problems): Chronic Problems Hypertension (Chronic) Hyperlipidemia (Chronic) Gout (Chronic) Allergies estrogens, conjugated [From Premarin] Adverse Reaction (Verified 03/25/18 15:51) Other isosorbide [From Imdur] Adverse Reaction (Verified 03/25/18 15:51) Other levofloxacin [From Levaquin] Adverse Reaction (Verified 03/25/18 15:51) Other solifenacin [From Vesicare] Adverse Reaction (Verified 03/25/18 15:51) Other sulfamethoxazole [From Bactrim] Adverse Reaction (Verified 03/25/18 15:51) Other trimethoprim [From Bactrim] Adverse Reaction (Verified 03/25/18 15:51) Other Home Medications: Ambulatory Orders Medication Instructions Recorded Aspirin [Aspir-Low] 81 mg PO DAILY 09/07/17 Atorvastatin Calcium [Lipitor] 80 mg PO QHS 09/07/17 Fenofibrate,Micronized 134 mg PO DAILY 09/07/17 Surgical History: tonsillectomy, - - Tubal ligation, cataract surgery, skin biopsies Psychiatric History: No pertinent psych hx HORSE TREKKING GUIDE History: No pertinent HORSE TREKKING GUIDE history Lives: Spouse/ Significant Other Smoking Status: Never smoker Alcohol: None Drugs: None - *Family History Maternal History Items: Heart Disease Paternal History Items: Heart Disease Review of Systems Constitutional: Denies: Chills, Fever, Weight Change HEENT: Reports: Post Nasal Drip, Sore Throat. Denies: Head Aches, Sinus Congestion, Sinus Drainage Cardiovascular: Reports: Chest Tightness. Denies: Chest Pain, Edema, Light Headedness, Palpitations, Syncope Respiratory: Reports: Cough, Shortness of Breath, Sputum production. Denies: Wheezing Gastrointestinal: Denies: Abdominal Pain, Nausea, Vomiting Genitourinary: Denies: Dysuria Musculoskeletal: Denies: Joint Pain, Joint Tenderness Skin: Denies: Rash, Wounds Neurological: Denies: Numbness, Tingling, Focal weakness Psychiatric: Denies: Anxiety, Depression, Homicidal Ideations, Suicidal Ideations Hematologic/ Lymphatic: Denies: Easy Bruising, Easy Bleeding VTE Information - Inpt Only VTE Present on Admission: Yes VTE Mechan Device Prophylaxis: None VTE Pharm Prophylaxis ordered?: Yes - Physical Exam General: Alert, Oriented x3, Cooperative, No apparent distress HEENT: Atraumatic, PERRLA, EOMI, Normocephalic Neck: Supple, No JVD, Negative Carotid Bruits Lungs: Clear to auscultation, Diminished, Tachypneic Cardiovascular: Regular Rhythm, Normal S1, Normal S2, No murmurs, Tachycardic Abdomen: Bowel Sounds Present, Soft, Non Tender, Non-Distended, Obese Extremities: No clubbing, No cyanosis, No edema, Capillary Refill Less than 3 Seconds Skin: No rashes, No breakdown Musculoskeletal: No Tenderness to Palpation of Joints or Extremities Neurological: Cranial nerves II-XII grossly intact, Neuro grossly intact Psych/Mental Status: Normal Affect, Appropriate Vital Signs Temp Pulse Resp BP Pulse Ox 97.8 F 113 H 24 H 164/75 H 91 03/25/18 15:25 03/25/18 15:40 03/25/18 15:40 03/25/18 15:25 03/25/18 16:00 Oxygen Flow Rate (L/min) 3 Oxygen Delivery Method Nasal Cannula Weight: 170 lb Body Mass Index (BMI) 31.1 Laboratory Tests Past 24 Hrs WBC RBC Hgb Hct MCV MCH MCHC RDW RDW Differential Plt Count MPV Immature Gran % (Auto) Neut % (Auto) Lymph % (Auto) Assessment/Plan 1. Acute extensive bilateral pulmonary emboli with associated acute hypoxia-CT of chest shows extensive bilateral pulmonary emboli. 8 x 15 mm spiculated right perihilar lesion. Patient reports sedentary lifestyle. No smoking history. No recent surgeries. Hypercoagulable panel completed in ER. Patient started on therapeutic Lovenox with plans for oral transition tomorrow. Obtain duplex ultrasound bilateral lower extremities. Continue supplement oxygen to maintain O2 at or above 90%. Complete walking pulse ox prior to discharge. Consult pulmonary medicine given pulmonary lesion. Patient reports SOB ongoing for a few months. BNP pending. Cycle enzymes. Repeat EKG in a.m. 2. Sinus tachycardia-secondary to 1. Continue home metoprolol regimen. 3. TRINA on CKD stage III-Gentle IV fluids. Trend BMP. 4. Hypertension-stable, continue home metoprolol regimen. 5. Hyperlipidemia-continue statin, fenofibrate. 6. Gout-states she takes fish oil supplementation for this. DVT prophylaxis-therapeutic Lovenox. This patient was seen by SRIRAM Jones under the supervision of Dr. Zepeda. 03/25/181727 <Electronically signed by Chantale BHATIA> Date Chantale BLANCAC 03/25/181733<Electronically signed by Deneen Zepeda > Cosigner Signature: Date (if applicable) Deneen Zepeda CC: SRIRAM Munroe; Deneen Zepeda; Chevy Matthew Signed MISCELLANEOUS LAB Collected: 03/25/2018 Status: F Source: [place] PROCEDURE 5:03 PM [facility] [place] Order Comment: Comments: PLASMA FROZEN, TIGER RMT Test(s) Ordered: [id number], APS PROFILE, 1 TIGER, 2 BLUE TYPE CODE TESTS RESULT OUT OF RANGE REFERENCE UNITS LAB L801.1541 Normal [facility] [place] Result Comment: TEST RESULTS LIMITS Antiphospholipid Syndrome aPTT 24.4 sec 22.9 - 30.2 PT 11.8 High sec 9.6 - 11.5 INR 1.1 0.9 - 1.1 Reference interval is for non-anticoagulated patients. Suggested INR therapeutic range for Vitamin K antagonist therapy: Standard Dose (moderate intensity therapeutic range): 2.0 - 3.0 Higher intensity therapeutic range 2.5 - 3.5 Thrombin Time 17.6 sec 0.0 - 23.0 dRVVT 42.4 sec 0.0 - 47.0 Hexagonal Phase Phospholipid 9 sec 0 - 11 Anticardiolipin Ab,IgG,Qn <9 GPL U/mL 0 - 14 Negative: <15 Indeterminate: 15 - 20 Low-Med Positive: >20 - 80 High Positive: >80 Anticardiolipin Ab,IgM,Qn 9 MPL U/mL 0 - 12 Negative: <13 Indeterminate: 13 - 20 Low-Med Positive: >20 - 80 High Positive: >80 Beta-2 Glycoprotein I Ab, IgG <9 GPI IgG units 0 - 20 Please Note: The reference interval reflects a 3SD or 99th percentile interval, which is thought to represent a potentially clinically significant result in accordance with the International Consensus Statement on the classification criteria for definitive antiphospholipid syndrome (APS). J Thromb Haem 2006;4:295-306. Beta-2 Glycoprotein I Ab, IgM <9 GPI IgM units 0 - 32 Please Note: The reference interval reflects a 3SD or 99th percentile interval, which is thought to represent a potentially clinically significant result in accordance with the International Consensus Statement on the classification criteria for definitive antiphospholipid syndrome (APS). J Thromb Haem 2006;4:295-306. APS Panel Interpretation Please refer to the Coag Studies Interp Report. Coag Studies Interp Report Interpretation Note COAGULATION: ANTIPHOSPHOLIPID SYNDROME ASSESSMENT ASSESSMENT A lupus anticoagulant is not detected. aCL and B2GP1 antibodies are normal. ANTIPHOSPHOLIPID SYNDROME ASSESSMENT SUMMARY - No evidence of a lupus anticoagulant, B2GP1 or aCL antibodies. As antibody titers may fluctuate with time, repeat testing may be indicated if antiphospholipid syndrome is suspected. ANTIPHOSPHOLIPID SYNDROME ASSESSMENT DEFINITIONS - aCL- anticardiolipin (antibodies to cardiolipin); B2GP1- antibodies to Beta-2 Glycoprotein 1; LA- lupus anticoagulant (which is identified with the dRVVT and/or hexagonal phospholipid neutralization assays); aPL- antibodies to protein/phospholipid complexes such as LA, aCL, and B2GP1 antibodies; APS- antiphospholipid syndrome; DTI-direct thrombin inhibitors. - TECHNICAL MAINTENANCE SPECIALIST: For questions regarding panel interpretation, please contact Arjun Johnson M.D. at [facility] at . DISCLAIMER These assessments and interpretations are provided as a convenience in support of the physician-patient relationship and are not intended to replace the physician's clinical judgment. They are derived from national guidelines in addition to other evidence and expert opinion. The clinician should consider this information within the context of clinical opinion and the individual patient. SEE GUIDANCE FOR ANTIPHOSPHOLIPID SYNDROME ASSESSMENT:(1) Yen Guadalupe et al. J Thromb Haemost. 2009; 7(10):4872-5969. (2) Rico S et al. J Thromb Haemost. 2006;4(2):295-306. (3) Jignesh DA et al. Blood. 2007;110(9): 2897-4039. TESTING PERFORMED AT [facility]. ORIGINAL REPORT ON FILE IN LAB CONTAINS ADDITIONAL TEST SITE INFORMATION. Performed By: #### L801.1541 #### [facility] [address] [place], [address] PROTEIN C DEFIC. Collected: 03/25/2018 Status: F Source: [facility] 5:03 PM [facility] [place] TYPE CODE TESTS RESULT OUT OF RANGE REFERENCE UNITS LAB L3100.7310 60-150 % Normal PROTEIN C 95 Performed By: #### L3100.7275, L3100.7325, L3100.8410, L3300.0450, L3410.2000, L4500.2000, L4500.5000 #### [facility] (refer to report for specific site) refer to report for address and phone number PROTEIN C, FUNCTIONAL Collected: 03/25/2018 Status: F Source: [place] 5:03 PM [facility] [place] TYPE CODE TESTS RESULT OUT OF RANGE REFERENCE UNITS LAB L3100.7325 73-180 % Normal PROT C, 122 Funct Performed By: #### L3100.7275, L3100.7325, L3100.8410, L3300.0450, L3410.2000, L4500.2000, L4500.5000 #### [facility] (refer to report for specific site) refer to report for address and phone number ANTICARDIOLIPIN IGG, IGM Collected: 03/25/2018 Status: F Source: [place] 5:03 PM [facility] [place] CODE TESTS RESULT OUT OF RANGE REFERENCE UNITS LAB L3100.8420 0-14 GPL U/mL Normal ANTICARDIO IgG < 9 Result Comment: Negative: <15 Indeterminate: 15 - 20 Low-Med Positive: >20 - 80 High Positive: >80 LAB L3100.8425 0-12 MPL U/mL ANTICARDIO Normal IgM 10 Result Comment: Negative: <13 Indeterminate: 13 - 20 Low-Med Positive: >20 - 80 High Positive: >80 Performed By: #### L3100.7275, L3100.7325, L3100.8410, L3300.0450, L3410.2000, L4500.2000, L4500.5000 #### [facility] (refer to report for specific site) refer to report for address and phone number AT III FUNC / Collected: 03/25/2018 Status: F Source: [place] IMMUNOL 5:03 PM [facility] [place] CODE TESTS RESULT OUT OF RANGE REFERENCE UNITS LAB L3300.0500 75-135 % Normal AT3 FUNCTION 90 Result Comment: Direct Xa inhibitor anticoagulants such as rivaroxaban, apixaban and edoxaban will lead to spuriously elevated antithrombin activity levels possibly masking a deficiency. LAB L3300.0540 72-124 % Normal AT3 AG, IMMUNOL 76 Result Comment: This test was developed and its performance characteristics determined by [facility]. It has not been cleared or approved by the Food and Drug Administration. Performed By: #### L3100.7275, L3100.7325, L3100.8410, L3300.0450, L3410.2000, L4500.2000, L4500.5000 #### [facility] (refer to report for specific site) refer to report for address and phone number BETA-2 GLYCOPROT IGG, Collected: 03/25/2018 Status: F Source: [place] FOSTER 5:03 PM [facility] [place] CODE TESTS RESULT OUT OF RANGE REFERENCE UNITS LAB L3410.2100 0-20 Normal B2 GLYCO <9 I IGG Result Comment: Result Units: GPI IgG units The reference interval reflects a 3SD or 99th percentile interval, which is thought to represent a potentially clinically significant result in accordance with the International Consensus Statement on the classification criteria for definitive antiphospholipid syndrome (APS). J Thromb Haem 2006;4:295-306. LAB L3410.2200 0-25 Normal B2 GLYCO I IGA <9 Result Comment: Result Units: GPI IgA units The reference interval reflects a 3SD or 99th percentile interval, which is thought to represent a potentially clinically significant result in accordance with the International Consensus Statement on the classification criteria for definitive antiphospholipid syndrome (APS). J Thromb Haem 2006;4:295-306. LAB L3410.2300 0-32 Normal B2 GLYCO I IGM <9 Result Comment: Result Units: GPI IgM units The reference interval reflects a 3SD or 99th percentile interval, which is thought to represent a potentially clinically significant result in accordance with the International Consensus Statement on the classification criteria for definitive antiphospholipid syndrome (APS). J Thromb Haem 2006;4:295-306. Performed By: #### L3100.7275, L3100.7325, L3100.8410, L3300.0450, L3410.2000, L4500.2000, L4500.5000 #### [facility] (refer to report for specific site) refer to report for address and phone number FACTOR II, DNA Collected: 03/25/2018 Status: F Source: [place] ANALYSIS 5:03 PM [facility] [place] CODE TESTS RESULT OUT OF RANGE REFERENCE UNITS LAB L4500.2100 . Normal FACTOR Comment II,DNA Result Comment: NEGATIVE No mutation identified. Comment: A point mutation ([id number]) in the factor II (prothrombin) gene is the second most common cause of inherited thrombophilia. The incidence of this mutation in the [place] population is about 2% and in the population it is approximately 0.5%. This mutation is rare in the and population. Being heterozygous for a prothrombin mutation increases the risk for developing venous thrombosis about 2 to 3 times above the general population risk. Being homozygous for the prothrombin gene mutation increases the relative risk for venous thrombosis further, although it is not yet known how much further the risk is increased. In women heterozygous for the prothrombin gene mutation, the use of estrogen containing oral contraceptives increases the relative risk of venous thrombosis about 16 times and the risk of developing cerebral thrombosis is also significantly increased. In the prothrombin gene mutation increases risk for venous thrombosis and may increase risk for stillbirth, placental abruption, pre-eclampsia and growth restriction. If the patient possesses two or more congenital or acquired thrombophilic risk factors, the risk for thrombosis may rise to more than the sum of the risk ratios for the individual mutations. This assay detects only the prothrombin M24637S mutation and does not measure genetic abnormalities elsewhere in the genome. Other thrombotic risk factors may be pursued through systematic clinical laboratory analysis. These factors include the R506Q (Leiden) mutation in the Factor V gene, plasma homocysteine levels, as well as testing for deficiencies of antithrombin III, protein C and protein S. Genetic Counselors are available for health care providers to discuss results at [phone] Methodology: DNA analysis of the Factor II gene was performed by PCR amplification followed by restriction analysis. The diagnostic sensitivity is >99% for both. All the tests must be combined with clinical information for the most accurate interpretation. Molecular-based testing is highly accurate, but as in any laboratory test, diagnostic errors may occur. This test was developed and its performance characteristics determined by [facility]. It has not been cleared or approved by the Food and Drug Administration. Poort SR, et al. Blood. 1996; 88:6666-7863. Kathe EA. Circulation. 2004; 110:e15-e18. Joie I, et al. Arterioscler Thromb Vasc Biol. 1999; 19:700-703. Suman Rico, PhD, FACMG Criss Orozco, PhD, FACMG Constantin LuuS., PhD, FACMG Rachel Dyson, PhD, FACMG Belen Whitaker, PhD, FACMG Jhon Lopez, PhD, FACMG Performed at: [address] [id number] Philanthropy Officer: Laura Aguilar MD, Phone: [phone] Performed at: [address] [id number] Philanthropy Officer: Francesco Hall PhD, Phone: [phone] Performed at: [facility] [address] [place], [place] [id number] Philanthropy Officer: Sarahi Ortega MD, Phone: [phone] Performed By: #### L3100.7085, L3100.1085, L3100.7906, L3300.0450, L3410.2000, L4500.2000, L4500.5000 #### [facility] (refer to report for specific site) refer to report for address and phone number FACT V LEIDEN Collected: 03/25/2018 Status: F Source: [place] MUTATION 5:03 PM [facility] [place] CODE TESTS RESULT OUT OF RANGE REFERENCE UNITS LAB L4500.5240 . Normal FACTOR V Comment LEIDEN Result Comment: Result: Negative (no mutation found) Factor V Leiden is a specific mutation (R506Q) in the factor V gene that is associated with an increased risk of venous thrombosis. Factor V Leiden is more resistant to inactivation by activated protein C. As a result, factor V persists in the circulation leading to a mild hyper- coagulable state. The Leiden mutation accounts for 90% - 95% of APC resistance. Factor V Leiden has been reported in patients with deep vein thrombosis, pulmonary embolus, central retinal vein occlusion, cerebral sinus thrombosis and hepatic vein thrombosis. Other risk factors to be considered in the workup for venous thrombosis include the [id number] mutation in the factor II (prothrombin) gene, protein S and C deficiency, and antithrombin deficiencies. Anticardiolipin antibody and lupus anticoagulant analysis may be appropriate for certain patients, as well as homocysteine levels. Contact your local [facility] for information on how to order additional testing if desired. Genetic counselors are available for health care providers to discuss results at [phone] Methodology: DNA analysis of the Factor V gene was performed by allele- specific PCR. The diagnostic sensitivity and specificity is >99% for both. Molecular-based testing is highly accurate, but as in any laboratory test, diagnostic errors may occur. All test results must be combined with clinical information for the most accurate interpretation. This test was developed and its performance characteristics determined by [facility]. It has not been cleared or approved by the Food and Drug Administration. References: Nader Chávez (1995). Clin Lab Med 16:169-186. Suman Rico, PhD, FACMG Criss Orozco, PhD, FACMG Meera Gorman M.S., PhD, FACMG Rachel Dyson, PhD, FACMG Belen Whitaker, PhD, FACMG Jhon Lopez PhD, FACMG Performed By: #### L3100.7275, L3100.7325, L3100.8410, L3300.0450, L3410.2000, L4500.2000, L4500.5000 #### [facility] (refer to report for specific site) refer to report for address and phone number EMERGENCY DEPARTMENT Observed: 03/25/2018 Status: F Source: [place] SUMMARY 4:38 PM [facility] [place] [facility] Medical Records Department [address] [place] [address] Emergency Department Summary 03/25/18 1535 MR#: [id number] Acct: [id number] Name: SHARRON CUMMINGS Rep #: [id number] : 1945 72 From: Devin Evans MD PCP: Chevy Matthew Status: REG ER - ER Visit Summary Date of Service: 03/25/18 Chief Complaint: Shortness of breath History of Present Illness: The patient is a 72 F who presents with shortness of breath. She has had this for 3 days. She states that she has dyspnea with exertion. It does get better with rest. She has had a slight cough is not productive of sputum. When she does get short of breath and exerts herself she has tightness in the lower part of her chest. She did have asthma as a child but not as an adult. She denies fevers. No leg swelling. She has no DVT or PE risk factors. The patient has had multiple cardiac catheterizations due to a family history of cardiac disease. It was clean in 2015. Physical Examination: Vital signs reviewed. Heart rate is 130. Respiratory rate 34. HEENT exam is unremarkable. Heart is tachycardic and regular rhythm without murmurs. She is tachypneic but her lungs are clear. Abdomen is soft and nontender. Extremities reveal no edema. Pulses are equal. Neurologic exam normal. Test Results: EKG is sinus rhythm with rate of 114. There are T wave inversions laterally. Hemoglobin 15.4. Creatinine 1.27. Troponin is 0.037. Lactate normal. Patient had a CT of the chest which showed bilateral pulmonary emboli Emergency Department Course and Treatment: Patient was placed on supplemental oxygen due to a oxygen saturation of 83% on room air. I gave her one albuterol treatment with relief. CTA does reveal bilateral pulmonary emboli. There is no saddle component to this. Patient was with Lovenox. She will be admitted to the hospital Treatment Plan: [] Disposition: Admit Impression: Pulmonary embolism, bilateral; hypoxemia This note was generated with AOTMP dictation software. It may contain incorrect words, spelling, and punctuation that were not noted in review of the chart prior to signing ED Disposition - Plan for ED Patient: Chief Complaint: Shortness of Breath Referrals: Chevy Matthew [Primary Care Provider] - What to do if you have Problems For any increased pain, shortness of breath, bleeding, nausea or vomiting, chest pain, or any unexpected problems, contact your Primary Care Provider. Call [facility] ([phone]) or report to the closest Emergency Room. Call 911 if necessary. 03/25/18 1638 <Electronically signed by Devin Evans MD> Date Devin Evans MD Cosigner Signature (If Indicated): Date CC: Chevy Matthew CBC W/DIFF, AUTOMATED Collected: 03/25/2018 Status: F Source: [place] 3:45 PM [facility] [place] CODE TESTS RESULT OUT OF RANGE REFERENCE UNITS LAB L100.1000 4.4-11.0 K/mm3 Normal WBC 10.9 LAB L100.1200 4.2-5.4 M/mm3 High RBC 5.42 LAB L100.1300 12.0-15.0 g/dl High HGB 15.4 LAB L100.1400 37-47 % High HCT 47.9 LAB L100.1500 81-99 fL Normal MCV 88.4 LAB L100.1600 27.0-32.0 pg Normal MCH 28.4 LAB L100.1700 32-36 g/gl Normal MCHC 32.2 LAB L100.1810 11.6-14.6 % Normal RDW CV 14.1 LAB L100.1820 35.1-43.9 fl High RDW SD 45.2 LAB L100.1900 150-450 K/mm3 Normal PLT 276 LAB L100.2000 6.2-12.0 fl Normal MPV 9.2 LAB L100.2100 47-70 % Normal NEUT% 68.9 LAB L100.2200 19-41 % Normal LY% 19.2 LAB L100.2300 0-10 % Normal MONO% 9.2 LAB L100.2400 0-5 % Normal EO% 2.1 LAB L100.2500 0-1 % Normal BASO% 0.2 LAB L100.2550 0.0-0.9 % Normal IM GRAN % 0.400 Result Comment: IG% - Immature Granulocytes (promyelocytes, myelocytes and metamyelocytes) > 1% indicates that a LEFT SHIFT is Present. LAB L100.2620 2.0-7.7 X10 3/uL Normal Absolute Neut 7.5 LAB L100.2720 0.83-4.51 X10 3/ul Normal Absolute Lymph 2.09 Performed By: #### L100.0100 #### [facility] [address] [place], [place], [id number] BASIC METABOLIC Collected: 03/25/2018 Status: F Source: [place] PROFILE ([facility]) 3:45 PM [facility] [place] CODE TESTS RESULT OUT OF RANGE REFERENCE UNITS LAB L501.0100 74-106 mg/dL High GLU 130 Result Comment: Fasting Glucose result greater than or equal to 126 mg/dL suggests DIABETES MELLITUS per A.D.A. criteria. Please note revised GLUCOSE reference range effective 2017. LAB L501.1000 7-18 mg/dL High BUN 30 LAB L501.1100 0.55-1.02 mg/dL High CREAT,SERUM 1.27 Result Comment: The validity of the calculated GFR AND GFRAA in patients over 70 years has not been determined. Clinical correlation is essential. LAB L501.1110 >60 mL/min Low EST GFR 44 Result Comment: Non- GFR Calc LAB L501.1115 >60 mL/min Low EST GFR - AA 54 Result Comment: GFR Calc LAB L501.1255 ml/min Normal Estimated CRCL 32.60 LAB L501.1300 10-20 RATIO High BUN/CRE 23.6 LAB L501.2200 8.5-10 mg/dL Normal .1 CA 9.8 LAB L501.5300 136-14 mmol/L Normal 5 NA 138 LAB L501.5600 3.5-5. mmol/L Normal 1 K 4.0 LAB L501.5900 98-107 mmol/L Normal CL 105 LAB L501.6100 21.0-3 mmol/L Normal 2.0 CO2 24.0 LAB L501.6200 5-15 Normal GAP 9 Performed By: #### L500.2500, L501.4010 #### [facility] [address] [place], [place], [id number] TROPONIN-I Collected: 03/25/2018 Status: F Source: [place] 3:45 PM [facility] [place] CODE TESTS RESULT OUT OF RANGE REFERENCE UNITS LAB L501.4010 <0.045 ng/mL Normal 0.037 TROPONIN-I Result Comment: TROPONIN-I EXPECTED VALUES <0.045 Negative 0.045 - 0.590 Consistent with Cardiac Damage > OR = 0.600 Critical Value Not every elevated troponin is indicative of MT. These values should be used with clinical judgement in examining the patient's clinical picture for diagnosis. To establish a diagnosis of MT versus myocardial injury, there must be a demonstrated rise and/or fall in the troponin values, in addition to ischemic symptoms, EKG changes, new regional wall motion abnormality, and/or angiographical evidence. PLEASE NOTE: REFERENCE RANGES EDITED 17 Performed By: #### L500.2500, L501.4010 #### [facility] [address] [place], [place], [id number] LACTIC ACID Collected: 03/25/2018 Status: F Source: [place] 3:45 PM [facility] [place] Order Comment: Yes/No query for Sepsis Lactate Rule Y TYPE CODE TESTS RESULT OUT OF RANGE REFERENCE UNITS LAB L503.6005 0.4-2.0 mmol/L Normal LACTIC ACID 1.6 Performed By: #### L503.6005 #### [facility] [address] [place], [address] BNP,B-TYPE NATRIURETIC Collected: 03/25/2018 Status: F Source: [place] PEPTIDE 3:45 PM [facility] [place] TYPE CODE TESTS RESULT OUT OF RANGE REFERENCE UNITS LAB L503.6620 0-100 pg/mL Normal B-TYPE 74.0 SAMEER PEP Performed By: #### L503.6620 #### [facility] [address] [place], [address] MAGNESIUM Collected: 03/25/2018 Status: F Source: [place] 3:45 PM [facility] [place] TYPE CODE TESTS RESULT OUT OF RANGE REFERENCE UNITS LAB L501.5200 1.6-2.6 mg/dL Normal MG 2.0 Performed By: #### L501.5200 #### [facility] [address] [facility] [place], [address] CTA CHEST W/WO Observed: 03/25/2018 Status: F Source: [place] CONTRAST 3:35 PM [facility] [place] [facility] Imaging Services [address] [place] [address] CTA Chest W/WO Contrast MR#: [id number] Acct: [id number] Name: SHARRON CUMMINGS Rep #: [id number] : 1945 F 72 From: Eric Vela MD PCP: Chevy Matthew Status: REG ER Study: CTA Chest W/WO Contrast Date of Exam: 03/25/18 Exam# [id number] Ordering Dr: Devin Evans MD STUDY: CTA CHEST REASON FOR EXAM: Female, 72 years old. Shortness of breath and cough x3 days RADIATION DOSAGE (If Supplied By Facility): CTDIvol = ( 13.67 ) mGy, DLP = ( 494.43 ) mGycm TECHNIQUE: The examination was performed with the intravenous administration of 100 ml of Isovue 370 contrast material. Post-processing of the angiographic images was performed, with multiplanar reformation and 3D reconstruction. Individualized dose optimization techniques were used for this CT. COMPARISON: None. FINDINGS: Multiple Occlusive filling defects noted within the lobar and segmental branches bilaterally, right greater than left. Normal enhancement of the bilateral peripheral pulmonary arteries. Normal thoracic aorta and visualized great vessels. There is no demonstrated aortic dissection. Normal heart and pericardium. Calcific coronary artery disease. Normal mediastinum. Normal hilar regions. Normal visualized trachea and bronchi. The lungs are well expanded. Normal pulmonary parenchyma. Normal pleura. 8 x 15 mm spiculated right perihilar lesion. Normal chest wall structures. Normal osseous structures. Normal visualized upper abdomen. CT/CTA Chest W/WO Contrast IMPRESSION: Extensive bilateral pulmonary emboli N.B. : The above information has been verbally conveyed by Eric Vela MD to Devin Evans MD, on 03/25/2018 16:59:27 (ET). Electronically Signed: Eric Vela MD at 16:51 EST , Service support , CC: Devin Evans MD; Chevy Matthew Title Examiner: Signed Observed: 09/07/2017 Status: F Source: [place] STOOL OCCULT BLOOD 12:45 PM [facility] [place] Order Date: 09/07/17 Has pt arrived? Y CRITICAL VALUE VERIFIED. CALLED TO ANNE HAND 09/07/17 [facility] Regan Barnett. RESULTS READ BACK BY ANNE . CHRISTIE iFOB Occult Blood Positive ORGANISM 1: OCCULT BLOOD POSITIVE Performed By: #### M100.7900 #### [facility] [address] [place], [address] Observed: 09/07/2017 Status: F Source: [place] CDIFF (MOLECULAR) 12:45 PM [facility] [place] Order Date: 09/07/17 Has pt arrived? Y Cdiff-Molecular Normal Reference Range = Negative C. Diff DNA Negative- No toxigenic C. Diff DNA Detected NAAT METHOD Testing was performed using nucleic acid amplification Performed By: #### M100.6796 #### [facility] [address] [place], [address] Observed: 09/07/2017 Status: F Source: [place] ENTERIC PATHOGEN 12:45 PM [facility] [place]POSIT[place] Order Date: 09/07/17 Has pt arrived? Y EP PANEL STOOL Normal Reference Range = Not Detected Not detected for Campylobacter group, Salmonella species, Shigella species, Vibrio Group, Yersinia enterocolitica, EHEC (Shiga Toxin 1, Shiga Toxin 2), Norovirus Gl/Gll, and Rotavirus A. Other common stool pathogens are not detected on this panel include: Aeromonas/Plesiomonas or parasites. Order testing for these organisms separately if suspected. This is an amplified DNA test which makes it both specific and sensitive. CAMPYLOBACTER Not Detected Salmonella Not Detected Shigella sp. Not Detected Shiga Toxin Not Detected Yersinia Not Detected VIBRIO Not Detected Norovirus Not Detected Rotavirus Not Detected Performed By: #### M100.637 #### [facility] [address] [place], [address] Observed: 09/07/2017 Status: F Source: [place] OVA AND PARASITES 12:45 PM [facility] [place] 2per dr adler do op also if enough specimen. O + P OVA AND PARASITES EXAM, ROUTINE These results were obtained using wet preparation(s) and trichrome stained smear. This test does not include testing for Crytosporidium parvum, Cyclospora, or Microsporidia. TESTING PERFORMED AT [facility]. ORIGINAL REPORT ON FILE IN LAB CONTAINS ADDITIONAL TEST SITE INFORMATION. Ova/Parasite Exam NO OVA, CYSTS, OR PARASITES FOUND. Performed By: #### M600.5000 #### [facility] [address] [place], [address] DISCHARGE INSTRUCTION Observed: 09/07/2017 Status: F Source: [place] 9:35 AM [facility] [place] [facility] Medical Records Department [address] [place] [address] Discharge Instruction 09/07/17932 MR#: [id number] Acct: [id number] Name: SHARRON CUMMINGS Rep #: [id number] : 1945 71 From: Cliff Lopez DO PCP: Chevy Matthew Status: REG ER ED Disposition - Plan for ED Patient: Chief Complaint: Diarrhea Instructions: ED Gastroenteritis Report Pend Prescriptions: Diphenoxylate/Atrop [Lomotil] 1 tab PO 4X/DAY #20 tab Referrals: Chevy Matthew [Primary Care Provider] - 3-5 Days What to do if you have Problems For any increased pain, shortness of breath, bleeding, nausea or vomiting, chest pain, or any unexpected problems, contact your Primary Care Provider. Call [facility] ([phone]) or report to the closest Emergency Room. Call 911 if necessary. 09/07/17934 <Electronically signed by Cliff Lopez DO> Date Cliff Lopez DO Cosigner Signature (If Indicated): Date CC: Chevy Matthew EMERGENCY DEPARTMENT Observed: 09/07/2017 Status: F Source: [place] SUMMARY 9:33 AM [facility] [place] [facility] Medical Records Department [address] [place] [address] Emergency Department Summary 09/07/1730 MR#: [id number] Acct: [id number] Name: SHARRON CUMMINGS Rep #: [id number] : 1945 71 From: Cliff Lopez DO PCP: Chevy Matthew Status: REG ER - ER Visit Summary Date of Service: 09/07/17 Chief Complaint: [Diarrhea] History of Present Illness: The patient is a 71 F [presents to the emergency department with diarrhea that started 4 days ago. Patient describes very frequent stools. Patient initially started taking Imodium for her watery stools and noticed that soon after there was some black discoloration to the stool almost coffee ground like. Patient then called the pharmacy and was told to use Imodium instead which she started doing and she states that that seems to have helped the diarrhea since yesterday. Patient denies any fevers. She denies recent antibiotic usage. She denies any recent travel. Patient denies eating any undercooked foods. Patient does not have a history of C. difficile. Patient's last colonoscopy was in June and patient was told she had diverticulosis. Patient denies any bright red blood per rectum.] Physical Examination: [HEENT-PERRLA, EOMI. Cranial nerves II through XII grossly intact. TMs clear. Mucous membranes moist. No adenopathy. Cardiovascular-regular rate and rhythm without murmur or ectopy Lungs-clear to auscultation, chest wall stable without crepitus or subcu emphysema Abdomen-normoactive bowel sounds, soft, nontender, no rebound or rigidity, no peritoneal signs. Extremities-intact 4, normal range of motion, normal pulses, atraumatic] Test Results: [CBC with differential obtained showed a white count of 7.1, hemoglobin 13.8, hematocrit 42, platelets 365. Chemistries unremarkable. Stool culture, enteric pathogens, and C. difficile ordered however patient unable to give a stool sample in the emergency department.] Emergency Department Course and Treatment: [Patient received a liter normal same fluid bolus] Treatment Plan: [Patient will be given a lab slip to bring in a stool sample. Patient given a prescription for Lomotil] Disposition: Discharged to home in stable condition [. Patient to return if fever, worsening abdominal pain, dehydration, or condition should worsen in any way.] Impression: [Diarrhea-etiology uncertain] This note was generated with [employer] software. It may contain incorrect words, spelling, and punctuation that were not noted in review of the chart prior to signing ED Disposition - Plan for ED Patient: Chief Complaint: Diarrhea Referrals: Chevy Matthew [Primary Care Provider] - What to do if you have Problems For any increased pain, shortness of breath, bleeding, nausea or vomiting, chest pain, or any unexpected problems, contact your Primary Care Provider. Call [facility] ([phone]) or report to the closest Emergency Room. Call 911 if necessary. 09/07/17 0933 <Electronically signed by Cliff Lopez DO> Date Cliff Lopez DO Cosigner Signature (If Indicated): Date CC: Chevy Matthew CBC W/DIFF, AUTOMATED Collected: 09/07/2017 Status: F Source: [place] 9:00 AM [facility] [place] CODE TESTS RESULT OUT OF RANGE REFERENCE UNITS LAB L100.1000 4.4-11.0 K/mm3 Normal WBC 7.1 LAB L100.1200 4.2-5.4 M/mm3 Normal RBC 4.71 LAB L100.1300 12.0-15.0 g/dl Normal HGB 13.8 LAB L100.1400 37-47 % Normal HCT 42.0 LAB L100.1500 81-99 fL Normal MCV 89.2 LAB L100.1600 27.0-32.0 pg Normal MCH 29.3 LAB L100.1700 32-36 g/gl Normal MCHC 32.9 LAB L100.1810 11.6-14.6 % Normal RDW CV 13.9 LAB L100.1820 35.1-43.9 fl High RDW SD 45.2 LAB L100.1900 150-450 K/mm3 Normal PLT 365 LAB L100.2000 6.2-12.0 fl Normal MPV 9.7 LAB L100.2100 47-70 % High NEUT% 75.4 LAB L100.2200 19-41 % Low LY% 14.1 LAB L100.2300 0-10 % Normal MONO% 7.1 LAB L100.2400 0-5 % Normal EO% 2.5 LAB L100.2500 0-1 % Normal BASO% 0.6 LAB L100.2550 0.0-0.9 % Normal IM GRAN % 0.300 Result Comment: IG% - Immature Granulocytes (promyelocytes, myelocytes and metamyelocytes) > 1% indicates that a LEFT SHIFT is Present. LAB L100.2620 2.0-7.7 X10 3/uL Normal Absolute Neut 5.4 LAB L100.2720 0.83-4.51 X10 3/ul Normal Absolute Lymph 1.00 Performed By: #### L100.0100 #### [facility] [address] [place], [address] BASIC METABOLIC Collected: 09/07/2017 Status: F Source: [place] PROFILE (BMP) 9:00 AM [facility] [place] CODE TESTS RESULT OUT OF RANGE REFERENCE UNITS LAB L501.0100 74-106 mg/dL Normal GLU 78 Result Comment: Please note revised GLUCOSE reference range effective 2017. LAB L501.1000 7-18 mg/dL Normal BUN 16 LAB L501.1100 0.55-1.02 mg/dL Normal CREAT,SERUM 0.99 Result Comment: The validity of the calculated GFR AND GFRAA in patients over 70 years has not been determined. Clinical correlation is essential. LAB L501.1110 >60 mL/min Low EST GFR 59 Result Comment: Non- GFR Calc LAB L501.1115 >60 mL/min Normal EST GFR - AA 71 Result Comment: GFR Calc LAB L501.1255 ml/min Normal Estimated CRCL 42.42 LAB L501.1300 10-20 RATIO Normal BUN/CRE 16.2 LAB L501.2200 8.5-10 mg/dL Normal .1 CA 8.9 LAB L501.5300 136-14 mmol/L Normal 5 NA 141 LAB L501.5600 3.5-5. mmol/L Normal 1 K 4.0 Result Comment: Moderate Hemolysis, Result may be falsely increased. LAB L501.5900 98-107 mmol/L High CL 109 LAB L501.6100 21.0-32.0 mmol/L Normal CO2 25.0 LAB L501.6200 5-15 Normal 7 GAP Performed By: #### L500.2500 #### [facility] [address] [place], [address] CNCO Observed: 08/14/2017 Status: COMPLETED Source: [place] 9:37 AM [facility] [place] REPOSITORY HNO ID: [id number] Author: Mammography Coordinator Service: (none) Author Type: Physician Type: Letter Filed: 08/17/2017 11:34 PM Note Text: August 14, 2017 PID: [id number] Sharron Cummings [address] [place] [address] Dear Brian, We are pleased to inform you that the results of your recent breast imaging exam on 08/14/2017 are normal. Early detection of cancer is very important. We also understand recommendations regarding breast cancer screening are controversial. Please discuss with your primary care provider which strategy is best for you and whether a mammogram is right for you. Your imaging studies and report will be kept on file at [facility] as part of your permanent medical record and are available for your continuing care. Thank you for allowing us to help in meeting your health care needs. Sincerely, Dr. Jackson Interpreting Radiologist [facility] (Normal over 40) [facility] SCREENING Observed: 08/14/2017 Status: F Source: [place] 9:32 AM [facility] [place] REPOSITORY * * *Final Report* * * DATE OF EXAM: Aug 14 2017 9:32AM [facility] 0581 - [facility] SCREENING / PROCEDURE REASON: Encounter for screening mammogram for malignant neoplasm of breast * * * * Physician Interpretation * * * * RESULT: #[id number] - [facility] SCREENING BILATERAL DIGITAL SCREENING MAMMOGRAM WITH CAD: 08/14/2017 HISTORY: Encounter For Screening Mammogram For Malignant Neoplasm Of Breast\ Screening Mammogram - patient reports NO breast symptoms /priors available for comparison. RESULT: TECHNIQUE: The study was acquired using full field digital technology and interpreted from soft copy. Current study was also evaluated with a Computer Aided Detection (CAD). Comparison is made to exams dated: 05/29/2016 mammogram - [facility], 05/05/2016 mammogram, 05/02/2015 mammogram, and 04/17/2014 mammogram - [facility]. There are scattered fibroglandular elements in both breasts. No significant masses, calcifications, or other findings are seen in either breast. There has been no significant interval change. IMPRESSION: NEGATIVE There is no mammographic evidence of malignancy.A 1 year screening mammogram is recommended. Shannan Jackson M.D. 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: Elly CRUZ)(Nadiya), [facility] letter sent: Normal over 40 Mammogram BI-RADS: 1 Negative Title Examiner: Live Transcribe Date/Time: Aug 14 2017 9:33A Dictated by: SHANNAN JACKSON MD This examination was interpreted and the report reviewed and electronically signed by: SHANNAN JACKSON MD on Aug 14 2017 9:37AM EST [id number] CNOV Observed: 08/14/2017 Status: COMPLETED Source: [place] 8:30 AM [facility] REPOSITORY Office Visit (WOOB) SHARRON CUMMINGS ([id number]) 1945 F Date Time Provider Department 08/14/17 8:30 AM MANOLO CARVALHO (BHUMI) ISAIAH During your visit today, we recorded the following information about you: Blood pressure Weight Height 138/78 81.6 kg 1.575 m Manolo Carvalho APRN.CNM 08/14/2017 10:54 AM Signed Sharron Cummings is a 71 year old who presents for her annual gynecologic exam without complaints. 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 Postmenopausal: Yes HRT use: Yes, Premarin How lon years. Now takes Effexor 75mg PO daily and this still works to help decrease hot flashes Last Pap: 2011 normal HPV: 2011 negative History of abnormal pap: No Last mammogram: 2017 normal History of abnormal mammogram: No Sexually active: Yes, not often History of STDS: None Pain with intercourse: Yes, d/t postmenopausal state Postcoital bleeding: No Hot flashes: Yes Night sweats: Yes Vaginal dryness: Yes Mood swings: No Insomnia: No Exercise: Rarely, encouraged to walk 20-30 minutes a day Diet: Regular diet Seatbelt use: Yes Obstetric History T0 L2 SAB0 TAB0 Ectopic0 Multiple0 Live Births0 PAST MEDICAL HISTORY Diagnosis Date - Gout - PMH - PAST MEDICAL HISTORY OF elevated cholesterol - PMH - PAST MEDICAL HISTORY OF asthma, as child and teen - PMH - PAST MEDICAL HISTORY OF 1976 hepatitis - PMH - PAST MEDICAL HISTORY OF 1976 fractured jaw - PMH - PAST MEDICAL HISTORY OF 05/2008 stress test - PMH - PAST MEDICAL HISTORY OF 2006 back pain - PMH - PAST MEDICAL HISTORY OF 2008 tendenitis=both forarms. - Postmenopausal bleeding 04/2007 Postmenop. bleeding - Unspecified essential hypertension Essential hypertension PAST SURGICAL HISTORY Procedure Laterality Date - CATARACT SURGERY, COMPLEX Right 11/2015 - DANDamp;C, DIAG AND/OR THERAPEUTIC 1982 Dilation ANDamp; curettage and cauterized a lesion - LASER SURGERY OF EYE 2008 right eye - LIGATE FALLOPIAN TUBE 1975 - PAST SURGICAL HISTORY OF 1997, 2008 heart cath. - PAST SURGICAL HISTORY OF 2004 bilateral bunionectomy - PAST SURGICAL HISTORY OF 2006 colonoscopy - REMOVAL ADENOIDS,PRIMARY,ANDlt;14 Y/O 1953 Adenoidectomy - REMOVAL OF TONSILS,ANDlt;14 Y/O 1953 Tonsillectomy FAMILY HISTORY Problem Relation Age of Onset - Heart Mother - Heart Father - Heart Sister - Heart Brother - Hypertension Mother - Hypertension Father SOCIAL HISTORY Social History Substance Use Topics - Smoking status: Never Smoker - Smokeless tobacco: Never Used - Alcohol use No REVIEW OF SYSTEMS Abdomen: No abdominal pain, nausea, vomiting, diarrhea, or constipation. No bloating, early satiety, indigestion, or increased flatulence. Bladder: No dysuria, gross hematuria, urinary frequency, urinary urgency, or incontinence Breast: No breast lumps, nipple d/c, overlying skin changes, redness or skin retraction Allergies and current medication updated:Yes EXAM: BP 138/78 Ht 5' 2ANDquot; (1.58m) Wt 180 lb (81.6kg) BMI 32.91 kg/(m2). GENERAL: pleasant, female in no apparent distress HEENT: Normocephalic, atraumatic, mucus membranes moist and no lesions NECK: Supple, full range of motion, no adenopathy and thyroid normal DERMATOLOGY: Normal, without lesions, non-icteric and non-hirsute BREAST: soft, non-tender, symmetric, no dominant mass, normal nipple-areolar complex, no lymphadenopathy and no nipple discharge CHEST: Normal inspiratory effort ABDOMEN: soft, non-tender and no masses PELVIC: external genitalia normal, normal Bartholin's glands, urethra, Heimdal's glands, no vulvar lesions, no cervical lesions, good vaginal support, physiologic discharge present, normal appearing perineal body and perianal region BIMANUAL: uterus normal size, shape and consistency, no adnexal masses and non-tender RECTOVAGINAL: rectovaginal exam negative for any masses or nodularity. NEURO: alert and oriented x3,exam grossly non-focal EXTREMITIES: normal ASSESSMENT/PLAN: 1) Health maintenance: Pap/HPV screening no longer needed Mammogram ordered Nutrition, exercise and routine health maintenance exams reviewed. Calcium/Vitamin D supplementation information provided. Smoking cessation: Patient does not smoke. Colon cancer screening: up to date with screening - last colonoscopy (negatvie) last month with patient's PCP Dr. Miranda at [place]. Next screening due in 10 years. TSH/lipids/glucose: followed by PCP Vitamin D: followed by PCP BMD: up to date, last done 2014. Continue Effexor as prescribed at this time 2) Follow up one year or sooner as needed YOBANY Rice APRN.CNM 08/14/2017 10:54 AM Signed ACOG Screening Guidelines (2015) The following health screening schedule is recommended by the [employer] (ACOG). Some of these tests may be ordered or performed by your primary care doctor. Pap test screening The pap test looks at cells on the cervix (the opening from the vagina to the uterus) to look for cancer or pre-cancerous changes. These changes are caused by the human papillomavirus (HPV). Studies estimate that half of all women will test positive for this virus within 3 years of starting sexual activity. For young women with a normal immune system, 90% of HPV infections will resolve within 2 years. There is a vaccine available against some forms of HPV. This is recommended for girls and women age 9-26 and is a series of 3 injections over 6 months. Because this vaccine does not protect against all HPV types which can cause cervical cancer, women who received the vaccine still need pap tests. Pap smear screening should be started at age 21. The pap test should be done every 3 years from age 21-29. From age 30-65, pap smears can be done every 5 years if HPV test is negative or every 3 years if HPV testing is not done. For women over the age of 65, ACOG recommends against screening women who have had adequate prior screening and are not otherwise at high risk for cervical cancer. Women who have had a hysterectomy also do not need routine pap smear screening unless the pap smear was done for a cervical cancer or moderate to severe dysplasia. Breast cancer screening Mammogram should be performed every 1-2 years starting at age 40 and every year starting at age 50. Screening may be started earlier depending on family history. Cholesterol screening Lipid panel (cholesterol test) should be checked every 5 years starting at age 45. Diabetes screening Fasting glucose (blood sugar) test should be performed every 3 years starting at age 45. Colorectal cancer screening Starting at age 50, women should have a screening colonoscopy at least every 10 years. Screening may be started earlier depending on family history. Thyroid screening Thyroid function test (TSH) should be checked every 5 years starting at age 50. Bone mineral density screening All postmenopausal women age 65 and over and postmenopausal women with risk factors for osteoporosis should have a bone mineral density test performed. Risk factors include race, family history of osteoporosis, personal history of fractures, poor nutrition, smoking, heavy alcohol use, early menopause, low calcium intake and low body weight. Certain medical conditions and long-term use of some medications may also increase risk. Referring Provider: SELF [[id number]] Allergies As of Date: 08/14/2017 Noted Allergy Reaction BACTRIM (SULFAMETHOXAZOLE) 03/03/2014 10 - Anaphylaxis EVISTA (RALOXIFENE HCL) 08/02/2008 Comments: increases intensity of hot flashes IMDUR (ISOSORBIDE MONONITRATE) 09/06/2009 Comments: headache INDOMETHACIN 09/06/2009 11 - Vomiting LEVAQUIN (LEVOFLOXACIN) 09/06/2009 Comments: Tendonitis in arms PREMARIN (CONJUGATED ESTROGENS) 03/13/2011 5 - Intolerance Comments: Increased BP environmental [Other] 08/02/2008 Comments: ragweed= sneezing, itching, watery eyes Date Reviewed: 08/14/2017 Reviewed by: Suha Arango Ma - Fully Assessed Primary Visit Diagnosis:Encounter for gynecological examination (general) (routine) without abnormal findings [Z01.419] Other Visit Diagnosis:Encounter for screening mammogram for breast cancer [Z12.31] Order(s):[facility] SCREENING [[id number]] Order #: [id number] FUTURE Prescriptions as of 08/14/2017 Sig: * LIPITOR 80 MG TABLET one tablet daily * COMPOUNDED PRESCRIPTION hydroxpropyl methylcellulose * * ECOTRIN LOW STRENGTH 81 MG TA* Take one (1) tablet daily. VENLAFAXINE ER 75 MG CAPSULE,* Take 1 capsule by mouth once * Patient taking differently: Take 150 mg by mouth once catrachito* INDOMETHACIN 50 MG CAPSULE Take 50 mg by mouth twice catrachito* FISH OIL ORAL Take by mouth. OMEPRAZOLE 20 MG CAPSULE,AB* Take 20 mg by mouth once ben* * NIACIN 500 MG TABLET Take 500 mg by mouth twice da* * METOPROLOL SUCCINATE ER 50 MG* Take 50 mg by mouth twice catrachito* * LORATADINE 10 MG TABLET Take 10 mg by mouth once ben* * TRIAMTERENE 75 MG-HYDROCHLORO* daily * ALTACE 2.5 MG CAPSULE one tablet daily * VITAMIN B-6 100 MG TABLET Take one(1) tablet daily.=dos* Medication notes this encounter INDOMETHACIN 50 MG CAPSULE >> Suha Arango Ma 08/14/2017 8:32 AM >> SUHA ARANGO MA ThuAug 14, 2017 8:32 AM Pt no longer taking NIACIN 500 MG TABLET >> Suha Arango Ma 08/14/2017 8:33 AM >> SUHA ARANGO MA ThuAug 14, 2017 8:33 AM Pt no longer taking Problem List As Of Date 08/14/2017 Noted Resolved Symptomatic Menopausal or Female Climacteric St*INVALID FOR* Postmenopausal Atrophic Vaginitis [N95.2] INVALID FOR* Inverted nipple [N64.59] INVALID FOR* Dyspareunia [CUL5534] INVALID FOR* Postmenopausal bleeding [N95.0] INVALID FOR* Furuncle of groin [L02.224] INVALID FOR* Candidiasis of skin and nails [B37.2] INVALID FOR* Other instructions from your clinician: ACOG Screening Guidelines (2015) The following health screening schedule is recommended by the [employer] (ACOG). Some of these tests may be ordered or performed by your primary care doctor. Pap test screening The pap test looks at cells on the cervix (the opening from the vagina to the uterus) to look for cancer or pre-cancerous changes. These changes are caused by the human papillomavirus (HPV). Studies estimate that half of all women will test positive for this virus within 3 years of starting sexual activity. For young women with a normal immune system, 90% of HPV infections will resolve within 2 years. There is a vaccine available against some forms of HPV. This is recommended for girls and women age 9-26 and is a series of 3 injections over 6 months. Because this vaccine does not protect against all HPV types which can cause cervical cancer, women who received the vaccine still need pap tests. Pap smear screening should be started at age 21. The pap test should be done every 3 years from age 21-29. From age 30-65, pap smears can be done every 5 years if HPV test is negative or every 3 years if HPV testing is not done. For women over the age of 65, ACOG recommends against screening women who have had adequate prior screening and are not otherwise at high risk for cervical cancer. Women who have had a hysterectomy also do not need routine pap smear screening unless the pap smear was done for a cervical cancer or moderate to severe dysplasia. Breast cancer screening Mammogram should be performed every 1-2 years starting at age 40 and every year starting at age 50. Screening may be started earlier depending on family history. Cholesterol screening Lipid panel (cholesterol test) should be checked every 5 years starting at age 45. Diabetes screening Fasting glucose (blood sugar) test should be performed every 3 years starting at age 45. Colorectal cancer screening Starting at age 50, women should have a screening colonoscopy at least every 10 years. Screening may be started earlier depending on family history. Thyroid screening Thyroid function test (TSH) should be checked every 5 years starting at age 50. Bone mineral density screening All postmenopausal women age 65 and over and postmenopausal women with risk factors for osteoporosis should have a bone mineral density test performed. Risk factors include race, family history of osteoporosis, personal history of fractures, poor nutrition, smoking, heavy alcohol use, early menopause, low calcium intake and low body weight. Certain medical conditions and long-term use of some medications may also increase risk. Disposition: Return in 1 year (on 08/14/2018), or if symptoms worsen or fail to improve, for Annual Exam. Follow-up and Disposition History Recorded Encounter Status:Closed by MANOLO CARVALHO CNM on 08/14/17 PROGRESS Observed: 08/14/2017 Status: COMPLETED Source: [place] 8:28 AM [facility] RE[facility] O ID: [id number] Author: Manolo (Nleia Carvalho Service: (none) Author Type: Real Estate Sales Manager Type: Progress Notes Filed: 08/14/2017 10:54 AM Note Text: Sharron Cummings is a 71 year old who presents for her annual gynecologic exam without complaints. 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 Postmenopausal: Yes HRT use: Yes, Premarin How lon years. Now takes Effexor 75mg PO daily and this still works to help decrease hot flashes Last Pap: 2011 normal HPV: 2011 negative History of abnormal pap: No Last mammogram: 2016 normal History of abnormal mammogram: No Sexually active: Yes, not often History of STDS: None Pain with intercourse: Yes, d/t postmenopausal state Postcoital bleeding: No Hot flashes: Yes Night sweats: Yes Vaginal dryness: Yes Mood swings: No Insomnia: No Exercise: Rarely, encouraged to walk 20-30 minutes a day Diet: Regular diet Seatbelt use: Yes Obstetric History T0 L2 SAB0 TAB0 Ectopic0 Multiple0 Live Births0 PAST MEDICAL HISTORY Diagnosis Date - Gout - PMH - PAST MEDICAL HISTORY OF elevated cholesterol - PMH - PAST MEDICAL HISTORY OF asthma, as child and teen - PMH - PAST MEDICAL HISTORY OF 1976 hepatitis - PMH - PAST MEDICAL HISTORY OF 1976 fractured jaw - PMH - PAST MEDICAL HISTORY OF 05/2008 stress test - PMH - PAST MEDICAL HISTORY OF 2006 back pain - PMH - PAST MEDICAL HISTORY OF 2008 tendenitis=both forarms. - Postmenopausal bleeding 04/2007 Postmenop. bleeding - Unspecified essential hypertension Essential hypertension PAST SURGICAL HISTORY Procedure Laterality Date - CATARACT SURGERY, COMPLEX Right 11/2015 - DANDC, DIAG AND/OR THERAPEUTIC 1982 Dilation AND curettage and cauterized a lesion - LASER SURGERY OF EYE 2009 right eye - LIGATE FALLOPIAN TUBE 1975 - PAST SURGICAL HISTORY OF 1997, 2008 heart cath. - PAST SURGICAL HISTORY OF 2004 bilateral bunionectomy - PAST SURGICAL HISTORY OF 2006 colonoscopy - REMOVAL ADENOIDS,PRIMARY,<12 Y/O 1953 Adenoidectomy - REMOVAL OF TONSILS,<12 Y/O 1953 Tonsillectomy FAMILY HISTORY Problem Relation Age of Onset - Heart Mother - Heart Father - Heart Sister - Heart Brother - Hypertension Mother - Hypertension Father SOCIAL HISTORY Social History Substance Use Topics - Smoking status: Never Smoker - Smokeless tobacco: Never Used - Alcohol use No REVIEW OF SYSTEMS Abdomen: No abdominal pain, nausea, vomiting, diarrhea, or constipation. No bloating, early satiety, indigestion, or increased flatulence. Bladder: No dysuria, gross hematuria, urinary frequency, urinary urgency, or incontinence Breast: No breast lumps, nipple d/c, overlying skin changes, redness or skin retraction Allergies and current medication updated:Yes EXAM: BP 138/78 Ht 5' 2 (1.58m) Wt 180 lb (81.6kg) BMI 32.91 kg/(m2). GENERAL: pleasant, female in no apparent distress HEENT: Normocephalic, atraumatic, mucus membranes moist and no lesions NECK: Supple, full range of motion, no adenopathy and thyroid normal DERMATOLOGY: Normal, without lesions, non-icteric and non-hirsute BREAST: soft, non-tender, symmetric, no dominant mass, normal nipple-areolar complex, no lymphadenopathy and no nipple discharge CHEST: Normal inspiratory effort ABDOMEN: soft, non-tender and no masses PELVIC: external genitalia normal, normal Bartholin's glands, urethra, Heimdal's glands, no vulvar lesions, no cervical lesions, good vaginal support, physiologic discharge present, normal appearing perineal body and perianal region BIMANUAL: uterus normal size, shape and consistency, no adnexal masses and non-tender RECTOVAGINAL: rectovaginal exam negative for any masses or nodularity. NEURO: alert and oriented x3,exam grossly non-focal EXTREMITIES: normal ASSESSMENT/PLAN: 1) Health maintenance: Pap/HPV screening no longer needed Mammogram ordered Nutrition, exercise and routine health maintenance exams reviewed. Calcium/Vitamin D supplementation information provided. Smoking cessation: Patient does not smoke. Colon cancer screening: up to date with screening - last colonoscopy (negatvie) last month with patient's PCP Dr. Miranda at [place]. Next screening due in 10 years. TSH/lipids/glucose: followed by PCP Vitamin D: followed by PCP BMD: up to date, last done 2014. Continue Effexor as prescribed at this time 2) Follow up one year or sooner as needed Manolo Carvalho APRN.CNM ALLERGIES ALLERGIES DATE TYPE / CODE NAME / CODE REACTION SEVERITY SOURCE 04/07/20 Drug isosorbide/[id number] Other, severe Unknown [place] 18 Allergy/[id number] 7(RXNORM) headache and [facility] (SNOMED CT) vomitting Hospital Repository 04/07/20 Drug estrogens, Other htn Unknown [place] 18 Allergy/[id number] conjugated/[id number] [facility] (SNOMED CT) 2(RXNORM) Hospital Repository 04/07/20 Drug sulfamethoxazole/F00 Anaphylaxis [place] 18 Allergy/[id number](RXNORM) [facility] (SNOMED CT) Hospital Repository 04/07/20 Drug levofloxacin/[id number] Other bilateral Unknown [place] 18 Allergy/[id number] 299(RXNORM) tendonitis [facility] (SNOMED CT) Hospital Repository 04/07/20 Drug raloxifene/[id number] Other- HTN Unknown [place] 18 Allergy/[id number] 2(RXNORM) Formerly [facility] (SNOMED CT) Hospital Repository 03/25/20 Drug trimethoprim/[id number] Other Unknown Noti 18 Allergy/692593694 873(RXNORM) [facility]ly [facility] (SNOMED CT) Hospital Repository 03/25/20 Drug solifenacin/[id number] Other Unknown Noti 18 Allergy/770161841 12(RXNORM) [facility] (SNOMED CT) Hospital Repository 03/03/20 DRUG SULFAMETHOXAZOLE ANAPHYLAXIS Malik 14 INGREDI/[id number] Clinic Main (SNOMED CT) [place] Repository 03/13/20 DRUG/[id number](SN CONJUGATED ESTROGENS INTOLERANCE Malik [address]) [facility] [place] Repository 09/07/19 DRUG ISOSORBIDE Malik 10 INGREDI/[id number] MONONITRATE Clinic [facility] (SNOMED CT) [place] Repository 09/07/19 DRUG INDOMETHACIN Vomiting Malik 10 INGREDI/[id number] Clinic Main (SNOMED CT) [place] Repository 09/07/19 DRUG LEVOFLOXACIN [place] 10 INGREDI/[id number] [facility] Main (SNOMED CT) [place] Repository 08/03/19 DRUG RALOXIFENE HCL [place] 09 INGREDI/856500712 [facility] (SNOMED CT) [place] Repository 08/03/19 Miscellaneous OTHER [place] 09 Allergy/025607062 [facility] (SNOMED CT) [place] Repository ENCOUNTERS ENCOUNTERS ADMIT/DISCHARGE ACCOUNT NUMBER ADMITTING ENCOUNTER LOCATION SOURCE CLASS 04/28/2018 [id number] Ambulatory [facility] ding:SL Repository 04/19/2018 [id number] Ambulatory [facility] ding:ONC Repository 04/15/2018 [id number] Ambulatory [facility] ding:CT Repository 04/14/2018 [id number] Ambulatory [facility] Repository 04/07/2018/04/07/20 [id number] Ambulatory BMSBuilding: [place]i 18 [facility] [place] 03/26/2018 [id number] Ambulatory BMSBuilding: [place] [facility] Repository 03/25/2018/03/26/20 [id number] [facility] ding:PCURoom Repository : OBV694Lst: 1 03/25/2018 [id number] [place], Ambulatory BMSBuilding: Noti Deneen BMS.Formerly [facility] Repository 03/25/2018 [id number] [place], Ambulatory BMSBuilding: Noti Deneen BMS.CF.[facility] [place] 03/25/2018 [id number] White, Ambulatory BMSBuilding: [place] Deneen BMS.Formerly [facility] Repository 03/25/2018/03/26/20 [id number] Ambulatory BMSBuilding: [place] 18 [facility] Repository 03/25/2018/03/26/20 [id number] Ambulatory BMSBuilding: Noti 18 BMS.CF.[facility] Repository 09/07/2017/09/08/19 [id number] Emergency [address] ding:ED Repository 08/14/2017/08/15/19 [id number] Ambulatory [address] Repository 08/14/2017/08/19/19 [id number] Ambulatory [address] Repository 07/06/2017 [id number] [facility] Repository PAYERS PAYERS ENCOUNTER GUARANTOR PAYER SUBSCRIBER SOURCE 04/28/2018 AUGUSTO Dowd Primary SHARRON Dowd [place] [id number] Insurance:MEDICARE BURKHOLDERDOB: Community [address], PART A [facility] [id number] [id number]: Number: Repository [id number] (HP) Date:2018-04-09 04/28/2018 Secondary SHARRON L Noti Insurance:ANTHEM BURKHOLDERDOB: Community MEDICARE [facility] [id number] Hospital Number: Repository [id number] Date:5373-99-11[address] [place] [address]OL: 04/28/2018 Tertiary NOT GIVENUNK [place] Insurance:SELF PAY [facility] Number: Effective Repository Date:2018-04-09 04/19/2018 AUGUSTO Dowd Primary SHARRON L [place] [id number] Insurance:MEDICARE BURKHOLDERDOB: Community [address]ARGAR[address], PART A [facility] [id number] [place] [address]Ttv: Number: Repository [id number] (HP) Date:2018-04-16 04/19/2018 Secondary SHARRON L [place] Insurance:ANTHEMPolic BURKHOLDERDOB: Community y Number: [id number] Hospital [id number] Repository Date:6160-89-49[address], [place] [address]RE: 04/19/2018 Tertiary NOT GIVENUNK [place] Insurance:SELF PAY [facility] Number: Effective Repository Date:2018-04-16 04/15/2018 AUGUSTO Dowd Primary SHARRON L [place] [id number] Insurance:MEDICARE BURKHOLDERDOB: Community [address]ARGAR[address], PART A [facility] [id number] [address]Kku: Number: Repository [id number] (HP) Date:2018-04-07 04/15/2018 Secondary SHARRON L [place] Insurance:ANTHEMPolic BURKHOLDERDOB: Community y Number: [id number] Hospital [id number] Repository Date:4657-32-13YD [address] [place] [address]CU: 04/15/2018 Tertiary NOT GIVENUNK [place] Insurance:SELF PAY [facility]: Effective Repository Date:2018-04-07 04/14/2018 Sharron Dowd Primary Sharron Dowd [facility] BurkholderDOB: Insurance:MedicarePol BurkholderDOB: System [id number] icy Number: Effective [id number] [facility] [address], Date: [place] [address]Bhk: () 04/14/2018 Secondary Sharron L [facility] Insurance:MedicarePol BurkholderDOB: System icy Number: Effective [id number] Repository Date: 04/14/2018 Tertiary [facility] L [facility] Insurance:[place] BurkholderDOB: System Cross Blue [id number] [facility] Number: Effective Date: 04/07/2018 AUGUSTO Dowd Primary SHARRON Dowd [place] [id number] Insurance:MEDICARE BURKHOLDERDOB: Community [address]ARGAR[address], PART A [place] [facility] [id number] [facility] [address]Gfy: Number: Repository [id number] () Date:2018-03-29 04/07/2018 Secondary SHARRON L Noti Insurance:ANTHEM BURKHOLDERDOB: Community MEDICARE [facility] [id number] Hospital Number: Repository [id number] Date:2675-03-74EP [address] [place] [address]GH: 04/07/2018 Tertiary NOT GIVENUNK [place] Insurance:SELF PAY [facility] Number: Effective Repository Date:2018-03-31 03/26/2018 AUGUSTO Dowd Primary SHARRON L [place] [id number] Insurance:MEDICARE BURKHOLDERDOB: Community [address]ARGAR[address], PART A [facility] [id number] [address]Pgk: Number: Repository [id number] (HP) Date:2018-03-25 03/26/2018 Secondary SHARRON L [place] Insurance:ANTHEMPolic BURKHOLDERDOB: Community y Number: [id number] Hospital [id number] Repository Date:5985-86-53EA [address], [place] [address]UH: 03/26/2018 Tertiary NOT GIVENUNK Noti Insurance:SELF PAY [facility] Number: Effective Repository Date:2018-03-26 03/25/2018 AUGUSTO L Primary SHARRON L Noti [id number] Insurance:MEDICARE BURKHOLDERDOB: Community [address]ARGAR[address], PART A [facility] [id number] [facility] [address]Htp: Number: Repository [id number] (HP) Date:2018-03-25 03/25/2018 Secondary SHARRON L [place] Insurance:ANTHEMPolic BURKHOLDERDOB: Community y Number: [id number] Hospital [id number] Repository Date:9391-45-36EG [address], [place] [address]OS: 03/25/2018 Tertiary NOT GIVENUNK Noti Insurance:SELF PAY [facility] Number: Effective Repository Date:2018-03-25 03/25/2018 AUGUSTO L Primary SHARRON L Noti [id number] Insurance:MEDICARE BURKHOLDERDOB: Community [address]ARGAR[address], PART A [facility] [id number] [facility] [address]Syp: Number: Repository [id number] (HP) Date:2018-03-25 03/25/2018 Secondary SHARRON L [place] Insurance:ANTHEMPolic BURKHOLDERDOB: Community y Number: [id number] Hospital [id number] Repository Date:1780-10-11IQ [address]ZCGLZESFRANK ZAMARRIP[address] [address]MQ: 03/25/2018 Tertiary SHARRON L Noti Insurance:AETNA SR BURKHOLDERDOB: Community SUPPLEMENT INSPolicy [id number] Hospital Number: Repository [id number] Date:9126-58-58EHFND SENIOR SUPPLEMENT INSP[address], [place] [address]WO: 03/25/2018 Tertiary NOT GIVENUNK [place] Insurance:SELF PAY [facility] Number: Effective Repository Date:2018-03-25 03/25/2018 AUGUSTO Dowd Primary SHARRON L Noti [id number] Insurance:MEDICARE BURKHOLDERDOB: Community [facility]ET [facility]UN[facility], PART A [facility] [id number] [facility] [address]Hef: Number: Repository [id number] (HP) Date:2018-03-25 03/25/2018 Secondary SHARRON L [place] Insurance:ANTHEM BURKHOLDERDOB: Community MEDICARE [facility] [id number] Hospital Number: Repository [id number] Date:3436-03-70AU [id number] [place] [address]QZ: 03/25/2018 Tertiary NOT GIVENUNK [place] Insurance:SELF PAY [facility] Number: Effective Repository Date:2018-03-25 03/25/2018 AUGUSTO Dowd Primary SHARRON L Noti [id number] Insurance:MEDICARE BURKHOLDERDOB: Community MARGARET [address]STER[address], PART A [facility] [id number] [facility] Regional [facility] Center [address]Zod: Number: Repository [id number] (HP) Date:2018-03-25 03/25/2018 Secondary SHARRON L Noti Insurance:ANTHEM BURKHOLDERDOB: Community MEDICARE [facility] [id number] Hospital Number: Repository [id number] Date:4910-10-47CT [address], [place] [address]XB: 03/25/2018 Tertiary NOT GIVENUNK Noti Insurance:SELF PAY [facility] Number: Effective Repository Date:2018-03-25 03/25/2018 AUGUSTO Dowd Primary SHARRON L [place] [id number] Insurance:MEDICARE BURKHOLDERDOB: Community MARGARET [address], PART A [address] [address]Qwq: Number: Repository [id number] (HP) Date:2018-03-25 03/25/2018 Secondary SHARRON L Noti Insurance:ANTHEMPolic BURKHOLDERDOB: Community y Number: [id number] [id number] Repository Date:8856-58-24CX [address], [place] [address]DV: 03/25/2018 Tertiary NOT GIVENUNK Noti Insurance:SELF PAY [facility] Number: Effective Repository Date:2018-03-25 03/25/2018 AUGUSTO L Primary SHARRON L Noti [id number] Insurance:MEDICARE BURKHOLDERDOB: Community [address]ARG[address], PART A [address] [address]Kbw: Number: Repository [id number] (HP) Date:2018-03-25 03/25/2018 Secondary SHARRON L Noti Insurance:ANTHEMPolic BURKHOLDERDOB: Community y Number: [address] [place] [address] [id number] Repository Date:9923-61-76EI [address], [place] [address]KV: 03/25/2018 Tertiary NOT GIVENUNK [place] Insurance:SELF PAY [facility] Number: Effective Repository Date:2018-03-25 09/07/2017 Augusto L Primary SHARRON L Noti [id number] Insurance:AETNAPolicy BURKHOLDERDOB: Community [address], Number: [address] [place] [address]Uok: [id number] Repository Date:3391-38-38UV [address] () [address]LJTRAY SALAZAR [address]LV: 09/07/2017 Secondary NOT GIVENUNK [place] Insurance:SELF PAY [facility] Number: Effective Repository Date:2017-09-07 07/06/2017 Sharron [facility]d [facility]:AetnaP[facility] SamaritanB: System [id number] Number: Effective [id number] Repository [address], Date: [place] [address]Xtl: ()
== END ==
PROVIDERS: Family Provider Family Medicine; PCP Family Medicine; Referring Provider Nurse Practitioner Acute Care; Visit Provider Nurse Practitioner Acute Care
DX: R91.1 Solitary pulmonary nodule (principal)
CPT/HCPCS: 71260; 74177; Q9967

== ENCOUNTER → 2018-04-19 11:23 | Outpatient (CLI) | payer MEDICARE, BC, SELFPAY ==
[2018-04-07 09:52] VITALS: BMI 31.8
--- NOTE | 2018-04-19 12:00 | PET_ITS ---
EXAMINATION: FDG PET CT INDICATIONS: A 72-year-old female with reported history of pulmonary nodularity. COMPARISON EXAMINATION: CT of the chest, abdomen and pelvis reports dated 04/15/18. NON-INDEX LESION SIZE SUV INTERPRETATION Right supraclavicular region 1.8 Quantitative criteria for viable neoplasm not fulfilled TECHNIQUE: Following the intravenous administration of 13.44 mCi of F-18 deoxyglucose via the left antecubital fossa, multiplanar image acquisitions of the neck, chest, abdomen and pelvis to level of mid thigh, obtained at one hour post radiopharmaceutical administration contemporaneously interpreted with the current CT of the neck, chest, abdomen and pelvis to level of mid thigh, dated 04/19/[address] of the chest, abdomen and pelvis reports dated 04/15/18 reveal: SERUM GLUCOSE LEVEL: 77 mg/dl. HEIGHT: 62 inches. WEIGHT: 170 lbs. FINDINGS: 1. There is no quantitative scintigraphic evidence of abnormal increased glucose metabolism on meticulous inspection of whole body acquisitions to include all three axis reconstructions. 2. Normal physiologic distribution of the radiopharmaceutical is apparent in the hepatic (2.7) and splenic parenchyma, both renal units, bladder and visualized intestinal tract. There is uniform distribution of the radiopharmaceutical concentration defined in the visualized cerebellar hemispheres and cerebral cortical structures.? Diffuse gastrointestinal tract activity is noted throughout all four quadrants of the abdominal-pelvic retroperitoneum, mesentery consistent with normal physiologic distribution of the radiopharmaceutical. Asymmetric increased FDG concentration is defined in the right supraclavicular region. The calculated standard uptake value is noted to be 1.8. Quantitative criteria for viable neoplasm are not fulfilled. Enhanced tracer concentration is demonstrated in the anterior aspect of the oral cavity in proximity to dental hardware placement. Pertinent CT findings are as follows. CHEST: Atherosclerotic calcification is defined in the thoracic aorta without evidence of dilatation, aneurysm formation. Coronary arterial calcification is observed. Bilateral axillary and subcentimeter mediastinal soft tissue densities are non-glucose avid. There are no parenchymal densities-nodules defined in the right-left hemithorax manifesting quantitatively significant increased glucose metabolism. Linear densities defined in the bilateral lower lung garcia are ametabolic. ABDOMEN AND PELVIS: There is fatty metamorphosis involving the hepatic parenchyma. There is questionable evidence of gallbladder sludge. Atherosclerotic calcification is defined in the abdominal aorta without evidence of dilatation, aneurysm formation. Pelvic arterial calcification is observed. A fat-containing ventral hernia is defined. Colonic diverticulosis is demonstrated. SKELETAL: Degenerative changes defined in the cervical, thoracic and lumbar spine demonstrate no evidence for glucose hypermetabolism. PET/PET/CT Tumor Base -Thigh Init IMPRESSION: 1. NEGATIVE EXAMINATION. There is no definitive quantitative scintigraphic evidence of viable neoplasm. 2. Mild increased FDG concentration defined in the right supraclavicular region does not fulfill quantitative criteria for viable neoplasm. 3. The increase in glucose concentration defined in the anterior aspect of the oral cavity in proximity to dental hardware placement is most consistent with a component of metallic reconstruction artifact. (Goerres et al, AJR 179:1337, 2002). 4. Anatomic stability may be ensured in the bilateral hemithorax ametabolic parenchymal densities with repeat CT of the thorax in six months. (Juan, Seminars in Thoracic and Cardiovascular Surgery 14:292, 2002). Electronic Signature Merlin Magallanes D.O. Electronically Signed: Merlin Magallanes DO at 23:15 EST Tel , Service support ,
--- OUTSIDE RECORDS SUMMARY | 2018-06-12 17:27 | XMS RPT_ITS ---
:1945 Author Organization OHIP Support Name Relationship Address Phone AUGUSTO CUMMINGS Unavailable [address] + [place] [address] R Unavailable Unavailable Unavailable WHITECHERYLEN Unavailable Unavailable + AUGUSTO CUMMINGS Unavailable [address] + [place] [address] R Unavailable Unavailable Unavailable WHITE MICHELLE Unavailable Unavailable + AUGUSTO CUMMINGS Unavailable [address] + [place] [address] R Unavailable Unavailable Unavailable WHITE MICHELLE Unavailable Unavailable + Augusto Cummings Unavailable Unavailable + White Michelle Unavailable Unavailable + AUGUSTO CUMMINGS Unavailable [address] + [place] [address] R Unavailable Unavailable Unavailable SALINA CUMMINGSH Unavailable [address] + [place] [address] R Unavailable Unavailable Unavailable WHITE, MICHELLE Unavailable Unavailable + AUGUSTO CUMMINGS Unavailable [address] + [place] [address] R Unavailable Unavailable Unavailable SALINA CUMMINGSH Unavailable [address] + [place] [address] R Unavailable Unavailable Unavailable WHITE, MICHELLE Unavailable Unavailable + AUGUSTO CUMMINGS Unavailable [address] + [place] [address] R Unavailable Unavailable Unavailable BRIANVITOR SCHMIDTNETH Unavailable [address] + [place] [address] R Unavailable Unavailable Unavailable BRIANSALINA SCHMIDTH Unavailable [address] + [place] [address] R Unavailable Unavailable Unavailable AUGUSTO CUMMINGS Unavailable [address] + [place] [address] R Unavailable Unavailable Unavailable MICHELLE ZEPEDA Unavailable Unavailable + AUGUSTO CUMMINGS Unavailable [address] + [place] [address] [facility] Unavailable [address] + [place] [address] Augusto Cummings Unavailable Unavailable + Michelle Zepeda Unavailable Unavailable + Care Team Providers Name Role Phone Chevy Pereyra Attending Unavailable UNKNOWN, PROVIDER Referring Unavailable Bettycasso, Chevy Primary Care Unavailable Venkatesho, Chevy Attending Unavailable UNKNOWN, PROVIDER Referring Unavailable Fracasso, Chevy Primary Care Unavailable MANOLO CARVALHO (CNM) Referring Unavailable MANOLO CARVALHO (CNM) Attending Unavailable Flavia Zaragoza Attending Unavailable Fracasso, Chevy [...] Unavailable Esau Ghotra D.O. Consulting Unavailable Frank oMran Consulting Unavailable Flavia Zaragoza Attending Unavailable VenkateshoChevy Referring Unavailable Flavia Zaragoza Attending Unavailable Flavia Zaragoza Referring Unavailable Fracasso, Chevy Primary Care Unavailable Paulino Kimball Attending Unavailable Devin Evans Referring Unavailable Bettycasso, Chevy Attending Unavailable Bettycasso, Chevy Primary Care Unavailable Paulino Kimball Attending Unavailable Will Swartz Referring Unavailable Topher Rice Attending Unavailable SRIRAM Jones Referring Unavailable PROBLEMS PROBLEMS DATE TYPE CONDITION / CODE ATTENDING STATUS SOURCE Unknown G47.33 - Obstructive Mila, Active [place] [facility] sleep apnea (adult) [facility] (pediatric) / Hospital G47.33(ICD-10) Repository Unknown R91.1 - Solitary Mila, Active [place] 8 pulmonary nodule / [facility] R91.1(ICD-10) Hospital Repository Unknown R94.31 - Abnormal Paulino Kimball Active [place] [facility] electrocardiogram Community [ECG] [EKG] / Hospital R94.31(ICD-10) Repository Unknown R06.89 - Other Paulino Kimball Active [place] [facility] abnormalities of Community breathing / Hospital R06.89(ICD-10) Repository Unknown I26.99 - Other Frank Moran Active [place] 8 pulmonary embolism Community without acute cor Hospital pulmonale / Repository I26.99(ICD-10) Unknown R06.02 - Shortness of CebuTopher dowd Active [place] 8 breath / Community R06.02(ICD-10) Hospital Repository Active Encounter for LAURA Conley [place] 8 screening mammogram [facility] for malignant neoplasm [place] of breast / Repository Z12.31(ICD-10) Admitting Encounter for Chevy Pereyra [employer] Diagnosis screening for System malignant neoplasm of Repository colon / Z12.11(ICD-10) Admitting Second degree Chevy Pereyra [employer] 8 Diagnosis hemorrhoids / System K64.1(ICD-10) Repository Admitting Dvrtclos of lg int w/o Chevy Pereyra [employer] 8 Diagnosis perforation or abscess System w/o bleeding / Repository K57.30(ICD-10) Admitting Unspecified asthma, Chevy Pereyra [employer] 8 Diagnosis uncomplicated / System J45.909(ICD-10) Repository Admitting Unspecified viral Chevy Pereyra [employer] 8 Diagnosis hepatitis B without System hepatic coma / Repository B19.10(ICD-10) Admitting Pure Chevy Pereyra [employer] 8 Diagnosis hypercholesterolemia, System unspecified / Repository E78.00(ICD-10) Admitting Essential (primary) Chevy Pereyra [employer] 8 Diagnosis hypertension / System I10(ICD-10) Repository Admitting Age-related Chevy Pereyra Active [employer] 8 Diagnosis osteoporosis w/o System current pathological Repository fracture / M81.0(ICD-10) Admitting Allergy status to Chevy Pereyra Active [employer] 8 Diagnosis other antibiotic System agents status / Repository Z88.1(ICD-10) Admitting Allergy status to Chevy Pereyra [employer] 8 Diagnosis sulfonamides status / System Z88.2(ICD-10) Repository Admitting Allergy status to oth Chevy Pereyra [employer] 8 Diagnosis drug/meds/biol subst System status / Z88.8(ICD-10) Repository PROCEDURES PROCEDURES No Procedure Records FoundRESULTS RESULTS PET/CT TUMOR BASE Observed: 04/16/2018 Status: F Source: [facility] INIT 1:05 PM [facility] REPOSITORY [facility] Imaging Services [address] [place] [address] PET/CT Tumor Base -Thigh Init MR#: [id number] Acct: [id number] Name: SHARRON CUMMINGS Rep #: [id number] : 1945 F 72 From: Merlin Magallanes DO PCP: Chevy Matthew Status: REG CLI Study: PET/CT Tumor Base -Thigh Init Date of Exam: 04/19/18 Exam# [id number] Ordering Dr: Chevy Matthew EXAMINATION: FDG PET [...] , Service support , CC: Chevy Matthew [employer] C[employer] Picker: Signed ABDOMEN/PELVIS WITH Observed: 04/15/2018 Status: F Source: [place] CONTRAST 6:04 AM [facility] REPOSITORY [facility] Imaging Services [address] [place] [address]454 Abdomen/Pelvis WITH Contrast MR#: [id number] Acct: [id number] Name: SHARRON CUMMINGS Rep #: [id number] : 1945 F 72 From: Kerwin Joe MD PCP: Chevy Matthew Status: REG CLI Study: Abdomen/Pelvis WITH Contrast Date of Exam: 04/15/18 Exam# [id number] Ordering Dr: Chevy Matthew STUDY: CT ABDOMEN [...] Kerwin Joe MD at 13:34 EST Tel [phone], Service support , CC: Chevy Matthew Seed Cone Picker: Signed CHEST WITH CONTRAST Observed: 04/15/2018 Status: F Source: [place] 5:46 AM [facility] REPOSITORY [facility] Imaging Services [address] [place] [address] Chest WITH Contrast MR#: [id number] Acct: [id number] Name: SHARRON CUMMINGS Rep #: [id number] : 1945 F 72 From: Kerwin Joe MD PCP: Chevy Matthew Status: REG CLI Study: Chest WITH Contrast Date of Exam: 04/15/18 Exam# [id number] Ordering Dr: Flavia Zaragoza MEASUREMENT SUPERINTENDENT-C STUDY: CT CHEST WITH CONTRAST REASON FOR [...] Kerwin Joe MD at 11:34 EST Tel [phone], Service support , CC: Flavia Zaragoza; Chevy Matthew Seed Cone Picker: Signed PULMONARY VISIT REPORT Observed: 04/07/2018 Status: F Source: [place] 3:33 PM [facility] REPOSITORY Pulmonary Medicine [address] [place] [address] OFFICE VISIT Date of Service: 04/07/18 MR#: [id number] Acct: [id number] Name: SHARRON CUMMINGS Rep #: [id number] : 1945 Provider: Flavia Zaragoza Age/Sex: 72/F Location: [facility].PMW Status: Signed Assessment AND Plan 1. Lung [...] Detail Follow Up 2 Months (DMB) [facility] hospital f/u: Chief Complaint: Fatigue HPI Comments Details: This is a 72 year old pleasant F, currently under the care of Chevy Matthew, here to follow up after a recent hospitalization at [facility], from March 25 - March 26, 2018 [...] 174 lb Intake Visit Reasons: hospital f/u Advertising Manager Required: No Accompanied by: Is patient in [...] mg PO DAILY 04/07/18 [History Confirmed 04/07/18] [facility] Medical History Hypertension (Chronic) Hyperlipidemia (Chronic) Gout [...] LEAD ELECTROCARDIOGRAM Observed: 03/29/2018 Status: F Source: [place] 2:59 PM [facility] REPOSITORY [facility] Cardiovascular Services [address] [place] [address] 12 Lead EKG 03/26/18 0230 MR#: [id number] Acct: [id number] Name: SHARRON CUMMINGS Rep #: [id number] : 1945 72 From: Paulino Kimball MD Attending Dr: Frank Moran MD Status: DIS IN Ordering Dr: Will Swartz MD Date: 03/26/18 Location: [facility] Sex: F C Admitted: 03/25/18 Test [...] IS UNCONFIRMED Confirmed by PAULINO KIMBALL ([id number]), script editor MEERA ARAGON ([id number]) on 03/29/2018 2:59:17 PM Referred By: NETO Confirmed By:PAULINO KIMBALL 03/29/18 1459 Date Paulino Kimball MD CC: Frank Moran MD; Chevy Matthew; Will Swartz MD Signed 12 LEAD ELECTROCARDIOGRAM Observed: 03/29/2018 Status: F Source: [place] 2:27 PM [facility] REPOSITORY [facility] Cardiovascular Services [address] [place] [address] 12 Lead EKG 03/25/18 1538 MR#: [id number] Acct: [id number] Name: SHARRON CUMMINGS Rep #: [id number] : 1945 72 From: Paulino Kimball MD Attending Dr: Frank Moran MD Status: DIS IN Ordering Dr: Devin Evans MD Date: 03/25/18 Location: [facility] Sex: F C Admitted: 03/25/18 Test [...] Abnormal ECG Confirmed by PAULINO KIMBALL ([id number]), script editor MEERA ARAGON ([id number]) on 03/29/2018 2:27:13 PM Referred By: JOEL Confirmed By:PAULINO KIMBALL 03/29/18 1427 Date Paulino Kimball MD CC: Frank Moran MD; Devin Evans MD; Chevy Matthew Signed ECHOCARDIOGRAM COMPLETE Observed: 03/26/2018 Status: F Source: [place] 1:49 PM [facility] REPOSITORY [facility] Cardiovascular Services [address] [place] [address] Echo Complete 03/26/18928 MR#: [id number] Acct: [id number] Name: SHARRON CUMMINGS Rep #: [id number] : 1945 72 From: Paulino Kimball MD Attending Dr: Frank Moran MD Status: DIS IN Ordering Dr: Chantale Munroe Date: 03/25/18 Location: [facility] Sex: F C Admitted: 03/25/18 Reason [...] Matthew Date Dictated: 03/26/18928 Date Transcribed: 03/26/181347 Seed Cone Picker: Signed DISCHARGE SUMMARY Observed: 03/26/2018 Status: F Source: [place] 12:49 PM [facility] REPOSITORY [facility] Medical Records Department [address] [place] [address] Discharge Summary 03/26/18 1142 MR#: [id number] Acct: [id number] Name: SHARRON CUMMINGS Rep #: [id number] : 1945 72 From: Chantale BHATIA PCP: Chevy Matthew Status: ADM IN Location: [place] [id number] ADDENDUM by SRIRAM Munroe on 03/26/18 at [...] (beta eleanor)] 50 mg PO BID 09/07/17 Roll[place]-3 Fatty Acids [Fish Oil Concentrate] 1,000 mg [...] (Auto) Code Visit Inpatient E AND M: 53223 Disch Hosp 03/26/18 1155 <Electronically signed by Chantale BHATIA> Date Chantale BHATIA Cosigner Signature (if applicable): Date CC: SRIRAM Munroe; Frank Moran MD; Chevy Matthew Signed DISCHARGE INSTRUCTION Observed: 03/26/2018 Status: F Source: [place] 12:09 PM [facility] REPOSITORY [facility] Medical Records Department [address] [place] [address] Instructions for Home/Discharge Instructions 03/26/18 1128 MR#: [id number] Acct: [id number] Name: BRIANSHARRON SCHMIDT Geoffrey Rep #: [id number] : 1945 72 From: Chantale BHATIA PCP: [...] (beta eleanor)] 50 mg PO BID 09/07/17 Roll[place]-3 Fatty Acids [Fish Oil Concentrate] 1,000 mg [...] DUPLEX LOWER Observed: 03/26/2018 Status: F Source: [place] EXTREMITY 11:35 AM [facility] REPOSITORY [facility] Cardiovascular Services [address] [place] [address] Venous Duplex - Josué Extrem 03/26/18 1049 MR#: [id number] Acct: [id number] Name: SHARRON CUMMINGS Rep #: [id number] : 1945 72 From: Topher Rice MD Attending Dr: Frank Moran MD Status: ADM IN Ordering Dr: Chantale Munroe Date: 03/26/18 Location: [facility] Sex: F C Admitted: 03/25/18 Reason [...] preliminary report was called and/or faxed to [facility] AND Dr. Moran. <> Interpretation Summary [...] Dictated: 03/26/18 1049 Date Transcribed: 03/26/18 113 Seed Cone Picker: Signed CONSULTATION Observed: 03/26/2018 Status: F Source: [place] 11:07 AM [facility] Medical Records Department [address] [place] [address] Consultation 03/26/18 0757 MR#: [id number] Acct: [id number] Name: SHARRON CUMMINGS Rep #: [id number] : 1945 72 From: Esau Ghotra DO PCP: Chevy Matthew Status: ADM IN Y Location: [place] [id number] Reason for Consult Date of Consultation: 03/26/18 [...] biopsies Psychiatric History: No pertinent psych hx COSMETIC SALES ADVISOR History: No pertinent COSMETIC SALES ADVISOR history Lives: Spouse/ Significant Other Smoking Status: [...] home medications. This note was generated with [employer] dictation software. It may contain incorrect words, spelling, and punctuation that were not noted in checking the note before signing. Code Visit Inpatient E AND M: 01515 Init Hosp L3 03/26/18 1107 <Electronically signed by Esau Ghotra DO> Date Esau Ghotra DO Cosigner Signature (if applicable): Date CC: Esau Ghotra D.O.; Chevy Matthew Signed BASIC METABOLIC Collected: 03/26/2018 Status: F Source: [place] PROFILE (BMP) 5:25 AM [facility] REPOSITORY TYPE CODE TESTS RESULT OUT OF [...] GAP Performed By: #### L500.2500, L500.4100 #### [facility] Laboratory [address] [place], [place], [address] LIPID PROFILE Collected: 03/26/2018 Status: F Source: [place] 5:25 AM [facility] REPOSITORY TYPE CODE TESTS RESULT OUT OF [...] 32 Performed By: #### L500.2500, L500.4100 #### [facility] [address] [place], [address] TROPONIN-I Collected: 03/25/2018 Status: F Source: [place] 11:55 PM [facility] REPOSITORY Order Comment: 'TROP' Serial specimen #1, [...] Not every elevated troponin is indicative of [place]. These values should be used with clinical judgement in examining the patient's clinical picture for diagnosis. To establish a diagnosis of [place] versus myocardial injury, there must be a demonstrated rise and/or fall in the troponin values, in addition to ischemic symptoms, EKG changes, new regional wall motion abnormality, and/or angiographical evidence. PLEASE NOTE: REFERENCE RANGES EDITED 17 Performed By: #### L501.4010 #### [facility] [address] [place], [address] TROPONIN-I Collected: 03/25/2018 Status: F Source: [place] 9:00 PM [facility] REPOSITORY Order Comment: 'TROP' Serial specimen #1, #2 or #3: 2 UTOx2. NURSE SKATE MAKER HAS BEEN NOTIFIED. SHE WILL DRAW THE PATIENT SOON SHE CAN. TYPE CODE TESTS RESULT OUT OF RANGE REFERENCE UNITS LAB L501.4010 <0.045 ng/mL Normal 0.034 TROPONIN-I Result Comment: TROPONIN-I EXPECTED VALUES <0.045 Negative 0.045 - 0.590 Consistent with Cardiac Damage > OR = 0.600 Critical Value Not every elevated troponin is indicative of [place]. These values should be used with clinical judgement in examining the patient's clinical picture for diagnosis. To establish a diagnosis of [place] versus myocardial injury, there must be a demonstrated rise and/or fall in the troponin values, in addition to ischemic symptoms, EKG changes, new regional wall motion abnormality, and/or angiographical evidence. PLEASE NOTE: REFERENCE RANGES EDITED 17 Performed By: #### L501.4010 #### [facility] [address] [place], [address] HEMOGLOBIN A1C Collected: 03/25/2018 Status: F Source: [place] 9:00 PM [facility] REPOSITORY TYPE CODE TESTS RESULT OUT OF RANGE REFERENCE UNITS LAB L501.9985 4.2-6.3 % High HGB A1C 6.6 Performed By: #### L501.9985 #### [facility] [address] [place], [address] HISTORY AND PHYSICAL Observed: 03/25/2018 Status: F Source: [place] EXAM 5:44 PM [facility] Medical Records Department [address] [place] [address] History and Physical 03/25/18 1654 MR#: [id number] Acct: [id number] Name: SHARRON CUMMINGS Rep #: [id number] : 1945 72 From: Chantale Munroe MEASUREMENT SUPERINTENDENT-C PCP: Chevy Matthew Status: ADM IN Y Location: [place] [address] ADDENDUM by Deneen Zepeda on 03/25/18 at [...] (baseline Cr 0.9) who presents to the [facility] ED on 03/25/18 w/ history of ongoing [...] (baseline Cr 0.9) who presents to the [facility] ED on 03/25/18 w/ history of ongoing [...] home venlafaxine regimen. Inpatient E AND M: 43324 Init Hosp L3 03/25/18 6164 <Electronically signed by Deneen Zepeda > Date [...] biopsies Psychiatric History: No pertinent psych hx COSMETIC SALES ADVISOR History: No pertinent COSMETIC SALES ADVISOR history Lives: Spouse/ Significant Other Smoking Status: [...] Status: F Source: [place] PROCEDURE 5:03 PM [facility] REPOSITORY Order Comment: Comments: PLASMA FROZEN, TIGER RMT Test(s) Ordered: [id number], APS PROFILE, 1 TIGER, 2 BLUE TYPE CODE TESTS RESULT OUT OF RANGE REFERENCE UNITS LAB L801.1541 Normal [facility] LAB TEST Result Comment: TEST RESULTS LIMITS [...] APS- antiphospholipid syndrome; DTI-direct thrombin inhibitors. - VENTILATING EXPERT: For questions regarding panel interpretation, please contact Arjun Johnson M.D. at [facility] at . DISCLAIMER These assessments and [...] Guadalupe et al. J Thromb Haemost. 2009; 7(10):0777-2876. (2) Rico S et al. J Thromb Haemost. 2006;4(2):295-306. (3) Jignesh DA et al. Blood. 2007;110(9): 2867-6386. TESTING PERFORMED AT [facility]. ORIGINAL REPORT ON FILE IN LAB CONTAINS ADDITIONAL TEST SITE INFORMATION. Performed By: #### L801.1541 #### [facility] [address] [place], [address] PROTEIN C DEFIC. Collected: 03/25/2018 Status: F Source: [facility] 5:03 PM [facility] REPOSITORY TYPE CODE TESTS RESULT OUT OF RANGE REFERENCE UNITS LAB L3100.7310 60-150 % Normal PROTEIN C 95 Performed By: #### L3100.7275, L3100.7325, L3100.8410, L3300.0450, L3410.2000, L4500.2000, L4500.5000 #### [facility] (refer to report for specific site) refer to report for address and phone number PROTEIN C, FUNCTIONAL Collected: 03/25/2018 Status: F Source: [place] 5:03 PM [facility] REPOSITORY TYPE CODE TESTS RESULT OUT OF RANGE REFERENCE UNITS LAB L3100.7325 73-180 % Normal PROT C, 122 Funct Performed By: #### L3100.7275, L3100.7325, L3100.8410, L3300.0450, L3410.2000, L4500.2000, L4500.5000 #### [facility] (refer to report for specific site) refer to report for address and phone number ANTICARDIOLIPIN IGG, IGM Collected: 03/25/2018 Status: F Source: [place] 5:03 PM [facility] REPOSITORY TYPE CODE TESTS RESULT OUT OF [...] Status: F Source: [place] IMMUNOL 5:03 PM [facility] REPOSITORY TYPE CODE TESTS RESULT OUT OF [...] Status: F Source: [place] FOSTER 5:03 PM [facility] REPOSITORY TYPE CODE TESTS RESULT OUT OF [...] Status: F Source: [place] ANALYSIS 5:03 PM [facility] REPOSITORY TYPE CODE TESTS RESULT OUT OF RANGE REFERENCE UNITS LAB L4500.2100 . Normal FACTOR Comment II,DNA Result Comment: NEGATIVE No mutation identified. Comment: A point mutation ([id number]) in the factor II (prothrombin) gene is [...] mutations. This assay detects only the prothrombin [id number] mutation and does not measure genetic abnormalities [...] health care providers to discuss results at [phone]). Methodology: DNA analysis of the Factor II gene was performed by PCR amplification followed by restriction analysis. The diagnostic sensitivity is >99% for both. All the tests must be combined with clinical information for the most accurate interpretation. Molecular-based testing is highly accurate, but as in any laboratory test, diagnostic errors may occur. This test was developed and its performance characteristics determined by [facility]. It has not been cleared or approved by the Food and Drug Administration. Poort SR, et al. Blood. 1996; 88:5106-6370. Kathe EA. Circulation. 2004; 110:e15-e18. Joie I, et al. Arterioscler Thromb Vasc Biol. 1999; 19:700-703. Suman Rico, PhD, [facility] Criss Orozco, PhD, [facility] Constantin LuuS., PhD, [facility] Rachel Dyson, PhD, [facility] Belen Whitaker, PhD, [facility] Jhon Lopez, PhD, [facility] Performed at: [address] [id number] Adult Care Manager: Laura Aguilar MD, Phone: [phone] Performed at: [address] [id number] Adult Care Manager: Francesco Hall PhD, Phone: [phone] Performed at: [facility] [address] [place], [place] [id number] Adult Care Manager: Sarahi Ortega MD, Phone: [phone] Performed By: #### L3100.8641, L3100.5886, L3100.6294, L3300.0450, L3410.2000, L4500.2000, L4500.5000 #### [facility] (refer to report for specific site) refer to report for address and phone number FACT V LEIDEN Collected: 03/25/2018 Status: F Source: [place] MUTATION 5:03 PM [facility] REPOSITORY TYPE CODE TESTS RESULT OUT OF RANGE REFERENCE UNITS LAB L4500.6500 . Normal FACTOR V Comment LEIDEN Result [...] the workup for venous thrombosis include the [id number] mutation in the factor II (prothrombin) gene, protein S and C deficiency, and antithrombin deficiencies. Anticardiolipin antibody and lupus anticoagulant analysis may be appropriate for certain patients, as well as homocysteine levels. Contact your local [facility] for information on how to order additional testing if desired. Genetic counselors are available for health care providers to discuss results at [phone]). Methodology: DNA analysis of the Factor V gene was performed by allele- specific PCR. The diagnostic sensitivity and specificity is >99% for both. Molecular-based testing is highly accurate, but as in any laboratory test, diagnostic errors may occur. All test results must be combined with clinical information for the most accurate interpretation. This test was developed and its performance characteristics determined by [facility]. It has not been cleared or approved [...] EMERGENCY DEPARTMENT Observed: 03/25/2018 Status: F Source: [place] SUMMARY 4:38 PM [facility] REPOSITORY [facility] Medical Records Department [address] [place] [address] Emergency Department Summary 03/25/18 1535 MR#: [id number] Acct: [id number] Name: SHARRON CUMMINGS Rep #: [id number] : 1945 72 From: Devin Evans MD [...] bilateral; hypoxemia This note was generated with [employer] dictation software. It may contain incorrect words, [...] your Primary Care Provider. Call [facility] ([phone]) or report to the closest Emergency Room. Call 911 if necessary. 03/25/18 1638 <Electronically signed by Devin Evans MD> Date Devin Evans MD Cosigner Signature (If Indicated): Date CC: Chevy Matthew CBC W/DIFF, AUTOMATED Collected: 03/25/2018 Status: F Source: [place] 3:45 PM [facility] REPOSITORY TYPE CODE TESTS RESULT OUT OF [...] Lymph 2.09 Performed By: #### L100.0100 #### [facility] [address] [place], [place], [address] BASIC METABOLIC Collected: 03/25/2018 Status: F Source: [place] PROFILE ([facility]) 3:45 PM [facility] REPOSITORY TYPE CODE TESTS RESULT OUT OF [...] 9 Performed By: #### L500.2500, L501.4010 #### [facility] [address] [place], [place], [address] TROPONIN-I Collected: 03/25/2018 Status: F Source: [place] 3:45 PM [facility] [facility] REPOSITORY TYPE CODE TESTS RESULT OUT OF RANGE REFERENCE UNITS LAB L501.4010 <0.045 ng/mL Normal 0.037 TROPONIN-I Result Comment: TROPONIN-I EXPECTED VALUES <0.045 Negative 0.045 - 0.590 Consistent with Cardiac Damage > OR = 0.600 Critical Value Not every elevated troponin is indicative of [place]. These values should be used with clinical judgement in examining the patient's clinical picture for diagnosis. To establish a diagnosis of [place] versus myocardial injury, there must be a demonstrated rise and/or fall in the troponin values, in addition to ischemic symptoms, EKG changes, new regional wall motion abnormality, and/or angiographical evidence. PLEASE NOTE: REFERENCE RANGES EDITED 17 Performed By: #### L500.2500, L501.4010 #### [facility] [address], [place], [id number] LACTIC ACID Collected: 03/25/2018 Status: F Source: [facility] 3:45 PM [facility] REPOSITORY Order Comment: Yes/No query for Sepsis Lactate Rule Y TYPE CODE TESTS RESULT OUT OF RANGE REFERENCE UNITS LAB L503.6005 0.4-2.0 mmol/L Normal LACTIC ACID 1.6 Performed By: #### L503.6005 #### [facility] [address] [place], [address] BNP,B-TYPE NATRIURETIC Collected: 03/25/2018 Status: F Source: [place] PEPTIDE 3:45 PM [facility] REPOSITORY TYPE CODE TESTS RESULT OUT OF RANGE REFERENCE UNITS LAB L503.6620 0-100 pg/mL Normal B-TYPE 74.0 SAMEER PEP Performed By: #### L503.6620 #### [facility] [address] [place], [address] MAGNESIUM Collected: 03/25/2018 Status: F Source: [place] 3:45 PM [facility] REPOSITORY TYPE CODE TESTS RESULT OUT OF RANGE REFERENCE UNITS LAB L501.5200 1.6-2.6 mg/dL Normal MG 2.0 Performed By: #### L501.5200 #### [facility] [address] [facility] [place], [address] CTA CHEST W/WO Observed: 03/25/2018 Status: F Source: [place] CONTRAST 3:35 PM [facility] REPOSITORY [facility] Imaging Services [address] [facility] [place] [address] CTA Chest W/WO Contrast MR#: [id number] Acct: [id number] Name: SHARRON CUMMINGS Rep #: [id number] : 1945 F 72 From: Eric Vela MD PCP: Chevy Matthew Status: REG ER Study: CTA Chest W/WO Contrast Date of Exam: 03/25/18 Exam# [id number] Ordering Dr: Devin Evans MD STUDY: CTA [...] , CC: Devin Evans MD; Chevy Matthew Seed Cone Picker: Signed Observed: 09/07/2017 Status: F Source: [place] STOOL OCCULT BLOOD 12:45 PM [facility] IFOB REPOSITORY Order Date: 09/07/17 Has pt arrived? Y CRITICAL VALUE VERIFIED. CALLED TO ANNE HAND 09/07/17 [facility] Regan Barnett. RESULTS READ BACK BY ANNE . CHRISTIE iFOB Occult Blood Positive ORGANISM 1: OCCULT BLOOD POSITIVE Performed By: #### M100.7900 #### [facility] [address] [place], [address] Observed: 09/07/2017 Status: F Source: [place] CDIFF (MOLECULAR) 12:45 PM [facility] REPOSITORY Order Date: 09/07/17 Has pt arrived? Y Cdiff-Molecular Normal Reference Range = Negative C. Diff DNA Negative- No toxigenic C. Diff DNA Detected NAAT METHOD Testing was performed using nucleic acid amplification Performed By: #### M100.6796 #### [facility] [address] [place], [address] Observed: 09/07/2017 Status: F Source: [facility] ENTERIC PATHOGEN 12:45 PM [facility] PANEL STOOL REPOSITORY Order Date: 09/07/17 Has [...] Not Detected Performed By: #### M100.637 #### [facility] [address] [place], [address] Observed: 09/07/2017 Status: F Source: [facility] OVA AND PARASITES 12:45 PM [facility] REPOSITORY 2per dr adler do op also [...] PARASITES FOUND. Performed By: #### M600.5000 #### [facility] [address] [place], [address] DISCHARGE INSTRUCTION Observed: 09/07/2017 Status: F Source: [place] 9:35 AM [facility] REPOSITORY [facility] Medical Records Department [address] [place] [address] Discharge Instruction 09/07/17932 MR#: [id number] Acct: [id number] Name: SHARRON CUMMINGS Rep #: [id number] : 1945 71 From: Cliff Lopez DO [...] your Primary Care Provider. Call [facility] ([phone]) or report to the closest Emergency Room. Call 911 if necessary. 09/07/17934 <Electronically signed by Cliff Lopez DO> Date Cliff Lopez DO Cosigner Signature (If Indicated): Date CC: Chevy Matthew EMERGENCY DEPARTMENT Observed: 09/07/2017 Status: F Source: [place] SUMMARY 9:33 AM [facility] REPOSITORY [facility] Medical Records Department [address] [place] [address] Emergency Department Summary 09/07/1730 MR#: [id number] Acct: [id number] Name: SHARRON CUMMINGS Rep #: [id number] : 1945 71 From: Cliff Lopez DO [...] [Diarrhea-etiology uncertain] This note was generated with PointAcrossation software. It may contain incorrect words, spelling, [...] your Primary Care Provider. Call [facility] ([phone]) or report to the closest Emergency Room. Call 911 if necessary. 09/07/17 0933 <Electronically signed by Cliff Lopez DO> Date Cliff Lopez DO Cosigner Signature (If Indicated): Date CC: Chevy Matthew CBC W/DIFF, AUTOMATED Collected: 09/07/2017 Status: F Source: [place] 9:00 AM [facility] REPOSITORY TYPE CODE TESTS RESULT OUT OF [...] Lymph 1.00 Performed By: #### L100.0100 #### [facility] [address] [place], [address] BASIC METABOLIC Collected: 09/07/2017 Status: F Source: [facility] PROFILE (BMP) 9:00 AM [facility] REPOSITORY TYPE CODE TESTS RESULT OUT OF [...] 7 GAP Performed By: #### L500.2500 #### [facility] [address] [place], [address] CNCO Observed: 08/14/2017 Status: COMPLETED Source: [place] 9:37 AM [facility] [place] REPOSITORY HNO ID: [id number] Author: Mammography Coordinator Service: (none) Author Type: Physician Type: Letter Filed: 08/17/2017 11:34 PM Note Text: August 14, 2017 PID: [id number] Sharron Cummings [address] [place] [address] Dear Brian, We are pleased to inform [...] report will be kept on file at [facility] as part of your permanent medical record and are available for your continuing care. Thank you for allowing us to help in meeting your health care needs. Sincerely, Dr. Jackson Interpreting Radiologist [facility] (Normal over 40) [facility] SCRE[facility] Observed: 08/14/2017 Status: F Source: [place] 9:32 AM [facility] [place] REPOSITORY * * *Final Report* * * DATE OF EXAM: Aug 14 2017 9:32AM [facility] 0581 - [facility] SCREENING / PROCEDURE REASON: Encounter for screening mammogram for malignant neoplasm of breast * * * * Physician Interpretation * * * * RESULT: #[id number] - [facility] SCREENING BILATERAL DIGITAL SCREENING MAMMOGRAM WITH CAD: [...] mammogram, 05/02/2015 mammogram, and 04/17/2014 mammogram - [facility]. There are scattered fibroglandular elements in both breasts. No significant masses, calcifications, or other findings are seen in either breast. There has been no significant interval change. IMPRESSION: NEGATIVE There is no mammographic evidence of malignancy.A 1 year screening mammogram is recommended. Shannan Jackson M.D. pt/live:08/14/2017 09:37:39 Policy Cancellation Clerk: Elly CRUZ)(Nadiya), [facility] letter sent: Normal over 40 Mammogram BI-RADS: 1 Negative Seed Cone Picker: Live Transcribe Date/Time: Aug 14 2017 9:33A Dictated by: SHANNAN JACKSON MD This examination was interpreted and the report reviewed and electronically signed by: SHANNAN JACKSON MD on Aug 14 2017 9:37AM EST [id number] Observed: 08/14/2017 Status: COMPLETED Source: [place] 8:30 AM [facility] REPOSITORY Office Visit (WOOB) SHARRON CUMMINGS ([id number]) 1945 F Date Time Provider Department 08/14/17 8:30 AM MANOLO CARVALHO (BHUMI) ISAIAH During your visit today, we recorded the following information about you: Blood pressure Weight Height 138/78 81.6 kg 1.575 m Manolo Carvalho APRN.CNM 08/14/2017 10:54 AM Signed Sharron Cummings is a 71 year old who presents for her annual gynecologic exam without complaints. 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 Miranda at [place]. Next screening due in 10 years. TSH/lipids/glucose: followed by PCP Vitamin D: followed by PCP BMD: up to date, last done 2014. Continue Effexor as prescribed at this time 2) Follow up one year or sooner as needed YOBANY Rice APRN.CNM 08/14/2017 10:54 AM Signed ACOG Screening Guidelines (2015) The following health screening schedule is recommended by the [employer] (ACOG). Some [...] for screening mammogram for breast cancer [Z12.31] Order(s):[facility]EN[facility] [1258613] Order #: [id number] FUTURE Prescriptions as of 08/14/2017 Sig: * [...] FOR* Inverted nipple [N64.59] INVALID FOR* Dyspareunia [OIL4549] INVALID FOR* Postmenopausal bleeding [N95.0] INVALID FOR* Furuncle of groin [L02.224] INVALID FOR* Candidiasis of skin and nails [B37.2] INVALID FOR* Other instructions from your clinician: ACOG Screening Guidelines (2015) The following health screening schedule is recommended by the [employer] (ACOG). Some [...] 08/14/17 PROGRESS Observed: 08/14/2017 Status: COMPLETED Source: [place] 8:28 AM [facility] REPOSITORY O ID: [id number] Author: Manolo (Nelia Carvalho Service: (none) Author Type: Photographer Finish Type: Progress Notes Filed: 08/14/2017 10:54 AM Note Text: Sharron Cummings is a 71 year old who presents for her annual gynecologic exam without complaints. 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 Miranda at [place]. Next screening due in 10 years. TSH/lipids/glucose: followed by PCP Vitamin D: followed by PCP BMD: up to date, last done 2014. Continue Effexor as prescribed at this time 2) Follow up one year or sooner as needed Manolo Carvalho APRN.CNM ALLERGIES ALLERGIES DATE TYPE / CODE NAME / CODE REACTION SEVERITY SOURCE 04/07/20 Drug isosorbide/E39896182 Other, severe Unknown [place] 18 Allergy/126705291 7(RXNORM) headache and [facility] (SNOMED CT) vomitting Hospital Repository 04/07/20 Drug estrogens, Other htn Unknown [place] 18 Allergy/034268520 conjugated/Z11199599 Community (SNOMED CT) 2(RXNORM) Hospital Repository 04/07/20 Drug sulfamethoxazole/F00 Anaphylaxis SV [place] 18 Allergy/530432741 1060462(RXNORM) [facility] (SNOMED CT) Hospital Repository 04/07/20 Drug levofloxacin/M133353 Other bilateral Unknown [place] 18 Allergy/659681062 299(RXNORM) tendonitis [facility] (SNOMED CT) Hospital Repository 04/07/20 Drug raloxifene/Y66710196 Other- HTN Unknown [place] 18 Allergy/436191660 2(RXNORM) [facility] (SNOMED CT) Hospital Repository 03/25/20 Drug trimethoprim/O597224 Other Unknown [place] 18 Allergy/814425262 873(RXNORM) [facility] (SNOMED CT) Hospital Repository 03/25/20 Drug solifenacin/E7347104 Other Unknown [place] 18 Allergy/687306789 12(RXNORM) [facility] (SNOMED CT) Hospital Repository 03/03/20 DRUG SULFAMETHOXAZOLE ANAPHYLAXIS [place] 14 INGREDI/429588635 Clinic Main (SNOMED CT) [place] Repository 03/13/20 DRUG/611158889(SN CONJUGATED ESTROGENS INTOLERANCE [place] [address]) Clinic Main [place] Repository 09/07/19 DRUG ISOSORBIDE [place] 10 INGREDI/085279973 MONONITRATE [facility] (SNOMED CT) [place] Repository 09/07/19 DRUG INDOMETHACIN Vomiting [place] 10 INGREDI/548285805 Clinic [facility] (SNOMED CT) [place] Repository 09/07/19 DRUG LEVOFLOXACIN [place] 10 INGREDI/754256442 [facility] (SNOMED CT) [place] Repository 08/03/19 DRUG RALOXIFENE HCL [place] 09 INGREDI/564110998 [facility] (SNOMED CT) [place] Repository 08/03/19 Miscellaneous OTHER [place] 09 Allergy/618816915 [facility] (SNOMED CT) [place] Repository ENCOUNTERS ENCOUNTERS ADMIT/DISCHARGE ACCOUNT NUMBER ADMITTING ENCOUNTER LOCATION SOURCE CLASS 04/28/2018 [id number] Ambulatory [facility] ding:SL Repository 04/19/2018 [id number] Ambulatory [facility] ding:ONC Repository 04/15/2018 [id number] Ambulatory [facility] ding:CT Repository 04/14/2018 [id number] Ambulatory [facility] Repository 04/07/2018/04/07/20 [id number] Ambulatory BMSBuilding: [place] 18 BMS.[facility] Repository 03/26/2018 [id number] Ambulatory BMSBuilding: [place] [facility] Repository 03/25/2018/03/26/20 [id number] [place] 18 [facility] ding:PCURoom Repository : KAB903Ypy: 1 03/25/2018 [id number] [place], Ambulatory BMSBuilding: [place] BMS.[facility] Repository 03/25/2018 [id number] [place], Ambulatory BMSBuilding: [place] BMS.CF.[facility] Repository 03/25/2018 [id number] [place], Ambulatory BMSBuilding: [place] BMS.[facility] Repository 03/25/2018/03/26/20 [id number] Ambulatory BMSBuilding: [place] 18 [facility] Repository 03/25/2018/03/26/20 [id number] Ambulatory BMSBuilding: [place] 18 BMS.CF.[facility] Repository 09/07/2017/09/08/19 [id number] Emergency [address] ding:ED Repository 08/14/2017/08/15/19 [id number] Ambulatory [address] Repository 08/14/2017/08/19/19 [id number] Ambulatory [address] Repository 07/06/2017 [id number] [facility] Repository PAYERS PAYERS ENCOUNTER GUARANTOR PAYER SUBSCRIBER SOURCE 04/28/2018 [place]O Dowd Primary SHARRON Dowd [place] [id number] Insurance:MEDICARE BURKHOLDERDOB: Community [address], [address] A [facility] [id number] Hospital [place] [address]Ejh: Number: Repository [id number] (HP) Date:2018-04-09 04/28/2018 Secondary SHARRON L [place] Insurance:ANTHEM BURKHOLDERDOB: Community MEDICARE [facility] [id number] Hospital Number: Repository [id number] Date:5985-07-74DP [address] [place] [address]OB: 04/28/2018 Tertiary NOT GIVENUNK [place] Insurance:SELF PAY [facility] Number: Effective Repository Date:2018-04-09 04/19/2018 AUGUSTO Dowd Primary SHARRON L [place] [id number] Insurance:MEDICARE BURKHOLDERDOB: Community [address], PART A [facility] [id number] Hospital [place] [address]Dgx: Number: Repository [id number] (HP) Date:2018-04-16 04/19/2018 Secondary SHARRON L [place] Insurance:ANTHEMPolic BURKHOLDERDOB: Community y Number: [id number] Hospital [id number] Repository Date:7541-87-45XP [address], [place] [address]IJ: 04/19/2018 Tertiary NOT GIVENUNK [place] Insurance:SELF PAY [facility] Number: Effective Repository Date:2018-04-16 04/15/2018 AUGUSTO Dowd Primary SHARRON L [place] [id number] Insurance:MEDICARE BURKHOLDERDOB: Community [address], PART A [facility] [id number] [address]Hng: Number: Repository [id number] (HP) Date:2018-04-07 04/15/2018 Secondary SHARRON L [place] Insurance:ANTHEMPolic BURKHOLDERDOB: Community y Number: [id number] Hospital [id number] Repository Date:6876-67-68BJ [address] [place] [address]ZV: 04/15/2018 Tertiary NOT GIVENUNK [place] Insurance:SELF PAY [facility] Number: Effective Repository Date:2018-04-07 04/14/2018 Sharron Dowd Primary [facility] BurkholderDOB: Insurance:MedicarePol BurkholderDOB: System [id number] icy Number: Effective [id number] [facility] [address], [place]: [place] [address]Cqj: () 04/14/2018 Secondary Sharron L [facility] Health Insurance:MedicarePol BurkholderDOB: System icy Number: Effective [id number] Repository Date: 04/14/2018 Tertiary [facility]ron L [facility] Insurance:[place] BurkholderDOB: System Cross Blue [id number] [facility] Number: Effective Date: 04/07/2018 AUGUSTO Dowd Primary SHARRON Dowd [place] [id number] Insurance:MEDICARE BURKHOLDERDOB: Community [address], PART A [facility] [id number] Hospital [address]Ezx: Number: Repository [id number] () Date:2018-03-29 04/07/2018 Secondary SHARRON L [place] Insurance:ANTHEM BURKHOLDERDOB: Community [facility]ARE [facility] [id number] Hospital Number: Repository [id number] Date:1811-91-57DN [address] [place] [address]IO: 04/07/2018 Tertiary NOT GIVENUNK [place] Insurance:SELF PAY [facility] Number: Effective Repository Date:2018-03-31 03/26/2018 AUGUSTO Dowd Primary SHARRON L [place] [id number] Insurance:MEDICARE BURKHOLDERDOB: Community [address], PART A [facility] [id number] [facility] Hospital [address]Drp: Number: Repository [id number] (HP) Date:2018-03-25 03/26/2018 Secondary SHARRON L [place] Insurance:ANTHEMPolic BURKHOLDERDOB: Community y Number: [id number] Hospital [id number] Repository Date:2247-75-55YP [address], [place] [address]YT: 03/26/2018 Tertiary NOT GIVENUNK [place] Insurance:SELF PAY [facility] Number: Effective Repository Date:2018-03-26 03/25/2018 AUGUSTO L Primary SHARRON L [place] [id number] Insurance:MEDICARE BURKHOLDERDOB: Community [address], PART A [facility] [id number] Kaseman Hospital [address]Sbe: Number: Repository [id number] (HP) Date:2018-03-25 03/25/2018 Secondary SHARRON L [place] Insurance:ANTHEMPolic BURKHOLDERDOB: Community y Number: [id number] Hospital [id number] Repository Date:4710-49-30JI [address]TZBTGJR, [place] [address]KD: 03/25/2018 Tertiary NOT GIVENUNK [place] Insurance:SELF PAY [facility] Number: Effective Repository Date:2018-03-25 03/25/2018 AUGUSTO L Primary SHARRON L [place] [id number] Insurance:MEDICARE BURKHOLDERDOB: Community [address], PART A [facility] [id number] Kaseman Hospital [address]Gqh: Number: Repository [id number] (HP) Date:2018-03-25 03/25/2018 Secondary SHARRON L [place] Insurance:ANTHEMPolic BURKHOLDERDOB: Community y Number: [id number] Hospital [id number] Repository Date:1970-29-77NT [address]YV[address] [address]ER: 03/25/2018 Tertiary SHARRON L [place] Insurance:AETNA SR BURKHOLDERDOB: Community SUPPLEMENT INSPolicy [id number] Hospital Number: Repository [id number] Date:3177-79-56XNGDP SENIOR SUPPLEMENT INSPO [address] [address], [place] [address]VY: 03/25/2018 Tertiary NOT GIVENUNK [place] Insurance:SELF PAY [facility] Number: Effective Repository Date:2018-03-25 03/25/2018 AUGUSTO Dowd Primary SHARRON L [place] [id number] Insurance:MEDICARE BURKHOLDERDOB: Community [place] [place] A [facility] [id number] [facility]eman Hospital [address]Hcs: Number: Repository [id number] (HP) Date:2018-03-25 03/25/2018 Secondary SHARRON L [place] Insurance:ANTHEM BURKHOLDERDOB: Community MEDICARE [facility] [id number] Hospital Number: Repository [id number] Date:2761-17-40NB [address] [place] [address]TB: 03/25/2018 Tertiary NOT GIVENUNK [place] Insurance:SELF PAY [facility] Number: Effective Repository Date:2018-03-25 03/25/2018 AUGUSTO Dowd Primary SHARRON L [place] [id number] Insurance:MEDICARE BURKHOLDERDOB: Community [address], PART A [facility] [id number] [facility] Hospital [address]Gxc: Number: Repository [id number] (HP) Date:2018-03-25 03/25/2018 Secondary SHARRON L [place] Insurance:ANTHEM BURKHOLDERDOB: Community MEDICARE [facility] [id number] Hospital Number: Repository [id number] Date:9587-53-43VN [address]CEQIWM, [place] [address]QM: 03/25/2018 Tertiary NOT GIVENUNK [place] Insurance:SELF PAY [facility] Number: Effective Repository Date:2018-03-25 03/25/2018 AUGUSTO Dowd Primary SHARRON L [place] [id number] Insurance:MEDICARE BURKHOLDERDOB: Community [address], [address] A [address] [address]Qej: Number: Repository [id number] (HP) Date:2018-03-25 03/25/2018 Secondary SHARRON L [place] Insurance:ANTHEMPolic BURKHOLDERDOB: Community y Number: [id number] [id number] Repository Date:6994-60-88CY [address]LLTQAGZ, [place] [address]TF: 03/25/2018 Tertiary NOT GIVENUNK [place] Insurance:SELF PAY [facility] Number: Effective Repository Date:2018-03-25 03/25/2018 AUGUSTO L Primary SHARRON L [place] [id number] Insurance:MEDICARE BURKHOLDERDOB: Community [address], [address] A [address] [address]Dmv: Number: Repository [id number] (HP) Date:2018-03-25 03/25/2018 Secondary SHARRON L [place] Insurance:ANTHEMPolic BURKHOLDERDOB: Community y Number: [address] [place] [address] [id number] Repository Date:4220-03-49[address]EPVFYGV, [place] [address]SI: 03/25/2018 Tertiary NOT GIVENUNK [place] Insurance:SELF PAY [facility] Number: Effective Repository Date:2018-03-25 09/07/2017 Augusto L Primary SHARRON L [place] [id number] Insurance:AETNAPolicy BURKHOLDERDOB: Community [address], Number: [address] [place] [address]Eof: [id number] Repository Date:2008-97-32VI [address] () [address] [place] [address]CO: 09/07/2017 Secondary NOT GIVENUNK [place] Insurance:SELF PAY [facility] Number: Effective Repository Date:2017-09-07 07/06/2017 [facility]:AetnaPollenka [facility] Hospital[facility]: System [id number] Number: Effective [id number] Repository [address], Date: [place] [address]Ndz: ()
== END ==
PROVIDERS: Family Provider Family Medicine; PCP Family Medicine; Visit Provider Family Medicine
DX: R91.8 Other nonspecific abnormal finding of lung field (principal)
CPT/HCPCS: 78815; A9552

== ENCOUNTER → 2018-04-28 20:23 | Outpatient (CLI) | payer MEDICARE, SELFPAY ==
[2018-04-07 09:52] VITALS: BMI 31.8
== END ==
PROVIDERS: Family Provider Family Medicine; PCP Family Medicine; Visit Provider Nurse Practitioner Acute Care
DX: G47.33 Obstructive sleep apnea (adult) (pediatric) (principal)
CPT/HCPCS: 95810; 95811

== ENCOUNTER → 2018-05-24 20:00 | Outpatient (CLI) | payer MEDICARE, BC, SELFPAY ==
[2018-04-07 09:52] VITALS: BMI 31.8
== END ==
PROVIDERS: Family Provider Family Medicine; PCP Family Medicine; Visit Provider Nurse Practitioner Acute Care
DX: G47.33 Obstructive sleep apnea (adult) (pediatric) (principal)
CPT/HCPCS: 95811

== ENCOUNTER → 2018-09-14 13:36 | Outpatient (CLI) | payer MEDICARE, BC, SELFPAY ==
[2018-08-02 08:23] VITALS: BMI 32.4
[2018-09-14 14:17] LABS: D-Dimer Quantitative (DVT/PE) < 0.27 FEU/ug/m (0.27-0.49)
== END ==
PROVIDERS: Family Provider Family Medicine; PCP Family Medicine; Visit Provider Internal Medicine Critical Care Medicine
DX: I26.99 Other pulmonary embolism without acute cor pulmonale (principal)
CPT/HCPCS: 36415; 85379

== ENCOUNTER → 2018-10-04 12:49 | Outpatient (CLI) | payer MEDICARE, BC, SELFPAY ==
[2018-09-17 11:09] VITALS: BMI 32.4
--- NOTE | 2018-10-04 12:52 | ECHOCS_ITS ---
Version 2 Reason For Study: PHTN Procedure This was a 2D Doppler, Color Flow transthoracic echocardiogram. The study was technically difficult. Contrast injection was performed. Exam performed in department. Left Ventricle Normal LV size. Moderate eccentric left ventricular hypertrophy. Left ventricular systolic function is normal. The estimated ejection fraction is 65 %. Stage 1 diastolic dysfunction. No regional wall motion abnormalities noted. Right Ventricle Normal RV size. Normal systolic function. Atria Normal left atrium. Normal right atrium. Mitral Valve Normal mitral valve. Mild (1+) eccentric mitral valve insufficiency. Tricuspid Valve Normal tricuspid valve. Mild (1+) tricuspid valve insufficiency. Pulmonary artery systolic pressure is 30 mmHg. Aortic Valve Normal aortic valve. Pulmonic Valve Normal pulmonic valve. Great Vessels Normal aortic root. The pulmonary artery is normal size. Normal inferior vena cava. Pericardium/Pleural No pericardial effusion. Medication 22 gauge I.V. with prn adaptor inserted into right arm. Diluted definity 2ml given slow IV push to enhance endocardial definition. MMode/2D Measurements & Calculations LVIDd: 4.7 cm IVSd: 1.5 cm LAV(MOD-bp): 42.1 ml LVIDs: 2.6 cm LVPWd: 1.0 cm FS: 44.9 % LAV(MOD-bp) Indexed: 22.8 ml/m2 LAV(MOD-sp2): 38.5 ml LAV(MOD-sp4): 45.7 ml LA A4 area: 16.8 cm2 RA A4 area: 11.9 cm2 Time Measurements MV dec time: 0.28 sec Doppler Measurements & Calculations MV E max hang: 65.8 cm/sec Lat Peak E' Hang: 7.9 cm/sec Med Peak E' Hang: 6.5 cm/sec MV A max hang: 103.5 cm/sec E/E' lat: 8.4 E/E' med: 10.2 MV E/A: 0.64 MV V2 max: 143.5 cm/sec MV P1/2t max hang: 109.8 cm/sec Ao V2 max: 127.5 cm/sec MV max P.2 mmHg MV P1/2t: 71.2 msec Ao max P.5 mmHg MV V2 mean: 82.5 cm/sec MV mean P.3 mmHg MV dec slope: 451.7 cm/sec2 MV V2 VTI: 28.4 cm MVA(P1/2t): 3.1 cm2 LV V1 max: 101.8 cm/sec PA V2 max: 100.2 cm/sec PI end-d hang: 108.8 cm/sec LV V1 max P.1 mmHg TR max hang: 253.8 cm/sec TR max P.8 mmHg Interpretation Summary Normal LV size. Moderate eccentric left ventricular hypertrophy. Left ventricular systolic function is normal. The estimated ejection fraction is 65 %. Stage 1 diastolic dysfunction. Mild (1+) tricuspid valve insufficiency. The pulmonary presures are better Contrast injection was performed. Ordering Physician: Esau Ghotra D.O. Referring Physician: Esau Ghotra D.O. Performed By: William San RCS
== END ==
PROVIDERS: Family Provider Family Medicine; PCP Family Medicine; Referring Provider Internal Medicine Critical Care Medicine; Visit Provider Internal Medicine Critical Care Medicine
DX: I27.20 Pulmonary hypertension, unspecified (principal)
CPT/HCPCS: 93306; Q9957; A4216; C8929

== ENCOUNTER → 2019-02-24 09:00 | Outpatient (CLI) | payer MEDICARE, BC, SELFPAY ==
[2019-02-23 08:18] VITALS: BMI 31.3
== END ==
PROVIDERS: Family Provider Family Medicine; PCP Family Medicine; Referring Provider Nurse Practitioner Acute Care; Visit Provider Nurse Practitioner Acute Care
DX: G47.33 Obstructive sleep apnea (adult) (pediatric) (principal)
CPT/HCPCS: 98960; G0463

== ENCOUNTER → 2019-03-09 11:29 | Outpatient (CLI) | payer MEDICARE, BC, SELFPAY ==
[2019-02-23 08:18] VITALS: BMI 31.3
--- NOTE | 2019-03-09 11:35 | RAD_ITS ---
HISTORY: ABNORMAL LUNG SOUNDS EXAM: XR Chest 2 Views: COMPARISON: No comparison images are available. A report from a PET/CT of April 19, 2018 is available. A report is also available from a chest CT dated April 15, 2018. FINDINGS: # of images incl. paperwork: 2 Scarring within the right hilum as discussed on previous study. Lungs are well-expanded. Some linear posterior airspace disease I perceived to be within the right lower lobe with a slightly elevated right hemidiaphragm compared to left Right paratracheal stripe is clear Heart is borderline enlarged. Thoracic kyphoscoliosis with osteoporosis Pulmonary vascularity is distinct. No effusions. 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 No acute disease perceived. Scarring within the right lower lobe and right perihilar region. at [id number] Reported and signed by: Rohan Kellogg MD Electronically Signed: Rohan Kellogg MD at 3:46 EDT Tel , Service support ,
== END ==
PROVIDERS: Family Provider Family Medicine; PCP Family Medicine; Referring Provider Family Medicine; Visit Provider Family Medicine
DX: R09.89 Other specified symptoms and signs involving the circulatory and respiratory systems (principal)
CPT/HCPCS: 71046

== ENCOUNTER → 2019-06-17 13:15 | Outpatient (CLI) | payer MEDICARE, BC, SELFPAY ==
[2019-03-29 07:47] VITALS: BMI 31.5
--- NOTE | 2019-06-17 13:36 | US_ITS ---
STUDY: ABDOMINAL ULTRASOUND REASON FOR EXAM: Female, 73 years old. RUQ PAIN SINCE THURSDAY TECHNIQUE: Transabdominal ultrasound was performed with real-time and static michel scale imaging. TECHNICAL QUALITY: Limited. Examination limited by bowel gas. COMPARISON: None. FINDINGS: Liver: The liver is mildly enlarged and measures 19.7 cm. There is increased echogenicity consistent with fatty infiltration. The bile ducts are within normal limits. There is hepatic color flow. The direction of portal flow is hepatopetal. There is no demonstrated mass lesion. Portal vein measurement: Gallbladder: Normal distended gallbladder. The gallbladder wall is thickened and measures 4.8 mm. There is a negative sonographic Garrido''s sign. There is intimal pericholecystic fluid. Findings suggestive of sludge in the gallbladder. Common Bile Duct (C.B.D.): The common bile duct measures 9.1 mm. Pancreas: There is nonvisualization of the pancreas due to overlying bowel gas. Spleen: Normal size of the spleen. The spleen measures 10.7 cm x 5.5 cm x 4.4 cm. Right Kidney: Normal size of the right kidney. The right kidney measures 10 cm x 4.3 cm x 5.1 cm. Normal renal cortex. The right cortex measures 1.5 cm. There is no demonstrated renal mass or cyst. There is no right hydronephrosis. Left Kidney: Normal size of the left kidney. The left kidney measures 10.4 cm x 4.1 cm x 5.1 cm. Normal renal cortex. The left cortex measures 1.2 cm. There is no demonstrated renal mass or cyst. There is no left hydronephrosis. There is no ascites. US/Abdomen Complete IMPRESSION: Fatty infiltration of the liver. Thickened gallbladder wall with minimal pericholecystic fluid. Findings suggestive of sludge in the gallbladder. Electronically Signed: Kerwin Joe, at 15:40 EST , Service support ,
[2019-06-17 13:40] LABS: Absolute Lymphocyte Count 1.41 X10^3/uL (0.83-4.51); Absolute Neutrophil Count 4.6 X10^3/uL (2.0-7.7); Basophil# 0.02 X10^3/uL; Basophil% 0.3 % (0-1); Eosinophil# 0.33 X10^3/uL; Eosinophils% 4.7 % (0-5); Hematocrit 41.8 % (37-47); Lymphocyte # 1.41 X10^3/ul (4.0); Lymphocyte % 20.2 % (19-41); Mean Corp Hgb Conc 31.1 g/dL (32-36); Mean Corpuscular Hgb 27.3 pg (27.0-32.0); Mean Corpuscular Volume 87.8 fL (81-99); Mean Platelet Vol. 9.3 fl (6.2-12.0); Monocyte# 0.59 X10^3/uL; Monocyte% 8.5 % (0-10); NRBC Flagged by Analyzer 0 % (0-5); Neutrophil # 4.55 X10^3/uL (2.7-7.7); Neutrophil % 65.3 % (47-70); Platelet Count 302 K/mm3 (150-450); RBC Distribution Width CV 15.1 % (11.6-14.6); RBC Distribution Width SD 48.8 fl (35.1-43.9); Red Blood Count 4.76 M/mm3 (4.2-5.4)
[2019-06-17 13:54] LABS: AST(SGOT) 602 U/L (15-37); Alanine Aminotransfer ALT/SGPT 973 U/L (13-56); Albumin, Serum 3.6 g/dL (3.2-5.0); Alkaline Phosphatase 172 U/L (45-117); Anion Gap 5 (5-15); BUN 20 mg/dL (7-18); Bilirubin, Direct 1.55 mg/dL (0.00-0.30); Calcium,Total 9.3 mg/dL (8.5-10.1); Chloride 106 mmol/L (98-107); Creatinine, Serum 1.25 mg/dL (0.55-1.02); EST Glomerular Filtration Rate 45 mL/min (>60); Est Glom Filt Rate - Afr Amer 54 mL/min (>60); Globulin 4.5 g/dL (2.2-4.2); Glucose 94 mg/dL (74-106); Potassium 3.5 mmol/L (3.5-5.1); Protein, Total 8.1 g/dL (6.4-8.2); Sodium Level 138 mmol/L (136-145)
[2019-06-17 17:00] LABS: Amylase 58 U/L (25-115); Lipase 89 U/L (73-393)
== END ==
PROVIDERS: PCP Family Medicine; Referring Provider Family Medicine; Visit Provider Family Medicine
DX: R10.11 Right upper quadrant pain (principal)
CPT/HCPCS: 36415; 76700; 80048; 80076; 82150; 83690; 85025

== ENCOUNTER 2019-06-17 18:07 | Observation (INO) | payer MEDICARE, BC, SELFPAY ==
[2019-03-29 07:47] VITALS: BMI 31.5
[2019-06-17 17:47] VITALS: BP 158/67; PULSE 72; RESP 16; TEMP 36.6; O2SAT 100; BMI 24.8
--- NOTE | 2019-06-17 18:08 | CT_ITS ---
STUDY: CT ABDOMEN AND PELVIS WITHOUT CONTRAST REASON FOR EXAM: Female, 73 years old. ELEVATED LIVER ENZYMES, EPIGASTRIC PAIN,FEVER RADIATION DOSAGE (If Supplied By Facility): CTDIvol = ( 14.39 ) mGy, DLP = ( 961.74 ) mGycm TECHNIQUE: Transaxial images were obtained from the dome of the diaphragm to the symphysis pubis without oral contrast, and without intravenous contrast. Sagittal and coronal images were reconstructed. Individualized dose optimization techniques were used for this CT. COMPARISON: Previous study of 04/15/2018 FINDINGS: The visualized lung bases are unremarkable. The visualized portions of the heart are within normal limits. There is decreased attenuation of the liver consistent with steatosis. There is minimal central pneumatobilia. There is minimal pericholecystic fluid. Normal spleen. Normal pancreas. Normal bilateral adrenal glands. Normal right kidney. Normal left kidney. Normal visualized stomach. Normal small intestine. There is colonic diverticulosis with no evidence of associated diverticulitis. There is non-visualization of the appendix. There are calcified plaques of the abdominal aorta and common iliac arteries. Normal inferior vena cava. Normal retroperitoneum. Normal urinary bladder. The uterus and adnexal structures are unremarkable. There is a small fat-containing umbilical hernia, and small fat-containing midline ventral hernia. There are degenerative changes of the lumbar spine. There are small bilateral fat-containing inguinal hernias. CT/Abdomen/Pelvis W IV Cont ONLY IMPRESSION: 1. Hepatic steatosis. Minimal central pneumobilia. 2. There is minimal pericholecystic fluid. No calcified gallstones are noted. 3. Colonic diverticulosis with no evidence of associated diverticulitis. 4. Small fat-containing umbilical hernia. Small fat-containing midline ventral hernia. 5. Degenerative changes of the lumbar spine. 6. There are small bilateral fat-containing inguinal hernias. Electronically Signed: Chance Zeng MD at 21:46 EST , Service support ,
--- NOTE | 2019-06-17 18:10 | EKG12_ITS ---
Test Reason : PRE OP Blood Pressure : / mmHG Vent. Rate : 076 BPM Atrial Rate : 076 BPM P-R Int : 210 ms QRS Dur : 080 ms QT Int : 394 ms P-R-T Axes : 044 044 041 degrees QTc Int : 443 ms Sinus rhythm with 1st degree A-V block Otherwise normal ECG When compared with ECG of 26-MAR-2018 02:30, T wave inversion no longer evident in Lateral leads Confirmed by JV SLOIS, JEB ([id number]), health editor HERB FLEMING ([id number]) on 06/21/2019 8:42:11 AM Referred By: Orlin Espana Confirmed By:JEB CARIAS MD
--- NOTE | 2019-06-17 18:11 | HP.PCM_ITS ---
Problem List (1) Elevated liver enzymes Status: Acute History of Present Illness Date of Admission: 06/17/19 The patient is a 73 year old F with epigastric pain and elevated liver enzymes. The patient reports that on Thursday she had a sharp pain in the right and left upper quadrants which radiated to the back. She said this did go away but then it returned on Thursday and it was stronger. She reports taking her temperature and having a fever of 103 at this time. Past Medical History Past Medical History (Chronic Problems): Chronic Problems (Last Reviewed 03/29/19 @ 09:19 by Flavia Zaragoza, TRIGONOMETRY TUTOR-C) Pulmonary hypertension (Chronic) VIOLETTA (obstructive sleep apnea) (Chronic) CPAP 13 cm water Hypertension (Chronic) Hyperlipidemia (Chronic) Gout (Chronic) Medical History: Medical History (Last Reviewed 03/29/19 @ 09:19 by Flavia Zaragoza, TRIGONOMETRY TUTOR-C) Hypertension (Chronic) I10 Hyperlipidemia (Chronic) E78.5 Gout (Chronic) M10.9 Asthma J45.909 Broken jaw S02.609A 1976 DVT (deep venous thrombosis) I82.409 Hepatitis B B19.10 1976 Retinal tear H33.319 2008 Allergies sulfamethoxazole [From Bactrim] Allergy (Severe, Verified 03/29/19 09:04) Anaphylaxis estrogens, conjugated [From Premarin] Adverse Reaction (Verified 03/29/19 09:04) Other htn isosorbide [From Imdur] Adverse Reaction (Verified 03/29/19 09:04) Other, severe headache and vomitting levofloxacin [From Levaquin] Adverse Reaction (Verified 03/29/19 09:04) Other bilateral tendonitis raloxifene [From Evista] Adverse Reaction (Verified 03/29/19 09:04) Other- HTN solifenacin [From Vesicare] Adverse Reaction (Verified 03/29/19 09:04) Other trimethoprim [From Bactrim] Adverse Reaction (Verified 03/29/19 09:04) Other Home Medications: Ambulatory Orders Medication Instructions Recorded Aspirin [Aspir-Low] 81 mg PO DAILY 09/07/17 Atorvastatin Calcium [Lipitor] 80 mg PO QHS 09/07/17 Metoprolol Tartrate [Lopressor 50 mg PO BID 09/07/17 (beta eleanor)] Venlafaxine HCl [Venlafaxine HCl 150 mg PO DAILY 09/07/17 ER] Amlodipine [Norvasc] 5 mg PO DAILY #30 tab 03/26/18 fenofibric acid (choline) 135 mg 135 mg PO DAILY 04/07/18 capsule,delayed release omega-3 fatty acids 1,000 mg 1,000 mg PO .QOD cap 08/02/18 capsule fluticasone propionate 50 2 spray INTRANASAL DAILY #16 g 02/23/19 mcg/actuation nasal spray,suspension ropinirole 0.25 mg tablet 0.5 mg PO QHS tab 03/29/19 Surgical History: Surgical History (Last Reviewed 03/29/19 @ 09:19 by SRIRAM Buchanan) H/O adenoidectomy Z90.89 1953 History of bunionectomy Z98.890 2004 History of tonsillectomy Z90.89 1953 H/O bilateral cataract extraction Z98.41, Z98.42 2016 skin cancer removed [id number] Surgical History: tonsillectomy, - - Tubal ligation, cataract surgery, skin biopsies Psychiatric History: No pertinent psych hx 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 Smoking Status: Never smoker - *Family History Maternal Family History: Family History (Last Reviewed 03/29/19 @ 09:19 by EVANGELIST BuchananC) Brother Hx of heart bypass surgery Mother Hx of heart bypass surgery Father Hx of heart bypass surgery Sister Hx of heart bypass surgery History Items: Heart Disease Paternal Family History: Family History (Last Reviewed 03/29/19 @ 09:19 by Flavia Zaragoza NP-C) Brother Hx of heart bypass surgery Mother Hx of heart bypass surgery Father Hx of heart bypass surgery Sister Hx of heart bypass surgery History Items: Heart Disease Review of Systems Constitutional: Denies: Anorexia, Fever HEENT: Denies: Difficulty Swallowing Cardiovascular: Denies: Chest Pain Respiratory: Denies: Cough, Shortness of Breath Gastrointestinal: Reports: Abdominal Pain, Nausea. Denies: Constipation, Diarrhea, Vomiting Genitourinary: Denies: Dysuria Skin: Denies: Jaundice Psychiatric: Denies: Anxiety Hematologic/ Lymphatic: Denies: Anemia VTE Information - Inpt Only VTE Present on Admission: No VTE Mechan Device Prophylaxis: SCD's Patient Problems: Active and Suspected Problems (Last Reviewed 03/29/19 @ 09:19 by SRIRAM Buchanan) Elevated liver enzymes (Acute) - Physical Exam Vitals/I&O's: Weight: 178 lb Body Mass Index (BMI) 24.8 General: Alert, Oriented x3 Neck: No JVD Lungs: Normal air movement Cardiovascular: Regular rate, Regular Rhythm Abdomen: Soft, Non-Distended, Tender - Tender in the right upper quadrant Extremities: No clubbing Musculoskeletal: No Muscle Wasting Neurological: Cranial nerves II-XII grossly intact Psych/Mental Status: Normal Affect Current Medications Acetaminophen (Tylenol) 650 mg PO Q4H PRN PRN PRN Reason: Pain or Fever Sodium Chloride () 250 mls @ 15 mls/hr IV .[id number] PRN PRN Reason: Saline Flush Sodium Chloride () 250 mls @ 15 mls/hr IV .[id number] PRN PRN Reason: Additional IVPB Infusion Sodium Chloride () 1,000 mls @ 125 mls/hr IV .Q8H [facility] Piperacillin Sod/Tazobactam (Sod 3.375 gm/ Sodium Chloride) 50 mls @ 12.5 mls/hr IV Q8 [facility] Morphine Sulfate () 2 - 4 mg IV Q2H PRN PRN PRN Reason: Pain Score 4-10/10 Ondansetron HCl (Zofran) 4 mg IV Q6H PRN PRN PRN Reason: NAUSEA Sodium Chloride () 10 - 40 ml IV UD PRN PRN Reason: SALINE FLUSH Assessment/Plan All Active Problems (Last Reviewed 03/29/19 @ 09:19 by Flavia Zaragoza NP-C) Elevated liver enzymes (Acute) Restless leg (Acute) PND (post-nasal drip) (Acute) Pulmonary embolism (Resolved) Lung nodule (Acute) 73-year-old female with elevated liver enzymes and gallbladder wall thickening 1. She went to her doctor who ordered an ultrasound and blood work today. Ultrasound showed thickening of the gallbladder as well as sludge. There was pericholecystic fluid as well. She also had a bile duct of 9 mm. White count was normal. Her liver enzymes were elevated. They were elevated in an obstructive pattern. Lipase was normal. 2. I admitted the patient and will start IV fluids. She can have clear liquids until midnight and then remain n.p.o. I will order a CT scan with IV contrast to ensure that there is no pancreatic mass obstructing the duct. If there is no mass and she still has elevated liver enzymes in the morning I will take her for ERCP. If liver enzymes increased and are more consistent with hepatitis I will order hepatitis panel. I will start antibiotics as the patient did have a fever and she does have elevated liver enzymes and right upper quadrant pain, in case this is cholangitis. I discussed the plan with the patient and the patient is in agreement. Orlin Espana MD Pager: [facility] [address] [place] [address] [address] [place] [address] Office:
[2019-06-17 18:43] LABS: Absolute Lymphocyte Count 1.41 X10^3/uL (0.83-4.51); Absolute Neutrophil Count 4.7 X10^3/uL (2.0-7.7); Basophil# 0.03 X10^3/uL; Basophil% 0.4 % (0-1); Eosinophil# 0.34 X10^3/uL; Eosinophils% 4.7 % (0-5); Hematocrit 41.9 % (37-47); Lymphocyte # 1.41 X10^3/ul (4.0); Lymphocyte % 19.5 % (19-41); Mean Corpuscular Hgb 27.3 pg (27.0-32.0); Mean Corpuscular Volume 87.8 fL (81-99); Mean Platelet Vol. 9.6 fl (6.2-12.0); Monocyte# 0.67 X10^3/uL; Monocyte% 9.3 % (0-10); NRBC Flagged by Analyzer 0 % (0-5); Neutrophil # 4.71 X10^3/uL (2.7-7.7); Neutrophil % 65.3 % (47-70); Platelet Count 317 K/mm3 (150-450); RBC Distribution Width CV 15.1 % (11.6-14.6); Red Blood Count 4.77 M/mm3 (4.2-5.4); White Blood Count 7.2 K/mm3 (4.4-11.0)
[2019-06-17 19:01] LABS: ALB/GLOB Ratio 0.8 RATIO (0.9-2.4); AST(SGOT) 528 U/L (15-37); Alanine Aminotransfer ALT/SGPT 924 U/L (13-56); Albumin, Serum 3.7 g/dL (3.2-5.0); Alkaline Phosphatase 178 U/L (45-117); Anion Gap 6 (5-15); BUN 22 mg/dL (7-18); BUN/Creat Ratio 18.6 RATIO (10-20); Calcium,Total 9.6 mg/dL (8.5-10.1); Chloride 108 mmol/L (98-107); Creatinine, Serum 1.18 mg/dL (0.55-1.02); EST Glomerular Filtration Rate 48 mL/min (>60); Est Glom Filt Rate - Afr Amer 58 mL/min (>60); Estimated Creatinine Clearance 48.88 ml/min; Globulin 4.5 g/dL (2.2-4.2); Glucose 86 mg/dL (74-106); Protein, Total 8.2 g/dL (6.4-8.2); Sodium Level 139 mmol/L (136-145)
[2019-06-17] MEDS: 0.9% Normal Saline 1,000 ML 125 ML IV (21:29)
[2019-06-17] MEDS: 0.9% Saline Lock 10 ML Syringe IV (21:30)
[2019-06-17 23:47] VITALS: BP 153/76; PULSE 88; RESP 18; TEMP 36.8; O2SAT 96
[2019-06-18] MEDS: 0.9% Normal Saline 1,000 ML 125 ML IV (05:27)
--- NOTE | 2019-06-18 07:41 | MRI_ITS ---
STUDY: MR CHOLANGIOPANCREATOGRAPHY (MRCP) REASON FOR EXAM: Female, 73 years old. ELEVATED LIVER ENZYMES SHARP ABDOMINAL PAIN FEVER TECHNIQUE: Standard MRCP technique was utilized. COMPARISON: CT dated 06/17/2019. Ultrasound dated 06/17/2019. FINDINGS: The study is limited by patient motion. The liver is enlarged with diffuse fatty infiltration noted. There are no focal hepatic lesions. The gallbladder is distended. There is a small amount of pericholecystic fluid. There are no gallstones identified. The common bile duct is mildly dilated, measuring 9 mm. There are no ductal stones are identified. The pancreatic duct is normal in caliber. The spleen, pancreas, adrenal glands and kidneys are normal in contour and signal intensity. The visualized bowel demonstrates no evidence of obstruction. The aorta is normal in caliber. MRI/MRCP Abdomen without Contrast IMPRESSION: Limited study. Distended gallbladder with a small amount of pericholecystic fluid. No gallstones identified. No ductal stones identified on this motion limited exam. Mildly dilated common bile duct. Enlarged, fatty liver. Electronically Signed: Awais Quinn, at 12:47 EST Tel , Service support ,
[2019-06-18 07:43] LABS: Absolute Lymphocyte Count 0.99 X10^3/uL (0.83-4.51); Absolute Neutrophil Count 3.7 X10^3/uL (2.0-7.7); Basophil# 0.03 X10^3/uL; Basophil% 0.5 % (0-1); Eosinophil# 0.35 X10^3/uL; Eosinophils% 6.1 % (0-5); Hematocrit 36.3 % (37-47); Hemoglobin 11.6 g/dL (12.0-15.0); Lymphocyte # 0.99 X10^3/ul (4.0); Lymphocyte % 17.3 % (19-41); Mean Corpuscular Hgb 27.9 pg (27.0-32.0); Mean Corpuscular Volume 87.3 fL (81-99); Mean Platelet Vol. 9.7 fl (6.2-12.0); Monocyte# 0.56 X10^3/uL; Monocyte% 9.8 % (0-10); NRBC Flagged by Analyzer 0 % (0-5); Neutrophil # 3.73 X10^3/uL (2.7-7.7); Neutrophil % 65.3 % (47-70); Platelet Count 288 K/mm3 (150-450); RBC Distribution Width CV 15.4 % (11.6-14.6); RBC Distribution Width SD 49.6 fl (35.1-43.9); Red Blood Count 4.16 M/mm3 (4.2-5.4); White Blood Count 5.7 K/mm3 (4.4-11.0)
[2019-06-18 07:50] VITALS: BP 139/74; PULSE 82; RESP 16; TEMP 37.1; O2SAT 97
[2019-06-18 07:59] LABS: ALB/GLOB Ratio 0.8 RATIO (0.9-2.4); AST(SGOT) 313 U/L (15-37); Alanine Aminotransfer ALT/SGPT 658 U/L (13-56); Alkaline Phosphatase 161 U/L (45-117); Anion Gap 4 (5-15); BUN 18 mg/dL (7-18); BUN/Creat Ratio 17.6 RATIO (10-20); Calcium,Total 8.9 mg/dL (8.5-10.1); Chloride 109 mmol/L (98-107); Creatinine, Serum 1.02 mg/dL (0.55-1.02); EST Glomerular Filtration Rate 57 mL/min (>60); Est Glom Filt Rate - Afr Amer 69 mL/min (>60); Estimated Creatinine Clearance 56.54 ml/min; Globulin 3.8 g/dL (2.2-4.2); Glucose 95 mg/dL (74-106); Potassium 3.8 mmol/L (3.5-5.1); Protein, Total 6.8 g/dL (6.4-8.2); Sodium Level 141 mmol/L (136-145)
--- NOTE | 2019-06-18 08:13 | PN.SURG_ITS ---
Patient Problems: Active and Suspected Problems (Last Reviewed 03/29/19 @ 09:19 by SRIRAM Buchanan) Elevated liver enzymes (Acute) Subjective: Patient is reporting no pain this morning. She has no nausea or vomiting. - Physical Exam Vitals/I&O's: Vital Signs Temp Pulse Resp BP Pulse Ox 98.8 F 82 16 139/74 H 97 06/18/19 07:50 06/18/19 07:50 06/18/19 07:50 06/18/19 07:50 06/18/19 07:50 Oxygen Delivery Method Room Air Weight: 178 lb Body Mass Index (BMI) 24.8 Intake and Output for Last 24 Hours 06/16/19 06/17/19 06/18/19 23:59 23:59 23:59 Intake Total 2045.83 / 2045.83 Output Total 400 / 400 Balance 1645.83 / 1645.83 General: Alert, Oriented x3 Neck: No JVD Lungs: Normal air movement Cardiovascular: Regular rate, Regular Rhythm Abdomen: Soft, Non Tender, Non-Distended Laboratory Results 06/17/19 18:26: WBC 7.2, RBC 4.77, Hgb 13.0, Hct 41.9, MCV 87.8, MCH 27.3, MCHC 31.0 L, RDW Std Deviation 49.0 H, RDW Coeff of Justin 15.1 H, Plt Count 317, MPV 9.6, Immature Gran % (Auto) 0.800, Neut % (Auto) 65.3, Lymph % (Auto) 19.5, [place] % (Auto) 9.3, Eos % (Auto) 4.7, Baso % (Auto) 0.4, Absolute Neuts (auto) 4.7, Absolute Lymphs (auto) 1.41, Nucleated RBC % 0 06/17/19 18:26: Sodium 139, Potassium 4.0, Chloride 108 H, Carbon Dioxide 25.0, Anion Gap 6, BUN 22 H, Creatinine 1.18 H, Estim Creat Clear Calc 48.88, Est GFR (MDRD) Af Amer 58 L, Est GFR (MDRD) Non-Af 48 L, BUN/Creatinine Ratio 18.6, Glucose 86, Calcium 9.6, Total Bilirubin 2.30 H, AST 528 H, ALT 924 H, Alkaline Phosphatase 178 H, Total Protein 8.2, Albumin 3.7, Globulin 4.5 H, A lbumin/Globulin Ratio 0.8 L 06/18/19 07:02: WBC 5.7, RBC 4.16 L, Hgb 11.6 L, Hct 36.3 L, MCV 87.3, MCH 27.9, MCHC 32.0, RDW Std Deviation 49.6 H, RDW Coeff of Justin 15.4 H, Plt Count 288, MPV 9.7, Immature Gran % (Auto) 1.000 H, Neut % (Auto) 65.3, Lymph % (Auto) 17.3 L, [place] % (Auto) 9.8, Eos % (Auto) 6.1 H, Baso % (Auto) 0.5, Absolute Neuts (auto) 3.7, Absolute Lymphs (auto) 0.99, Nucleated RBC % 0 06/18/19 07:02: Sodium 141, Potassium 3.8, Chloride 109 H, Carbon Dioxide 28.0, Anion Gap 4 L, BUN 18, Creatinine 1.02, Estim Creat Clear Calc 56.54, Est GFR (MDRD) Af Amer 69, Est GFR (MDRD) Non-Af 57 L, BUN/Creatinine Ratio 17.6, Glucose 95, Calcium 8.9, Total Bilirubin 1.50 H, AST 313 H, ALT 658 H, Alkaline Phosphatase 161 H, Total Protein 6.8, Albumin 3.0 L, Globulin 3.8, Albumin/Globulin Ratio 0.8 L Current Medications Acetaminophen (Tylenol) 650 mg PO Q4H PRN PRN PRN Reason: Pain 1-10 or Fever Sodium Chloride () 250 mls @ 15 mls/hr IV .[id number] PRN PRN Reason: Saline Flush Sodium Chloride () 250 mls @ 15 mls/hr IV .[id number] PRN PRN Reason: Additional IVPB Infusion Sodium Chloride () 1,000 mls @ 125 mls/hr IV .Q8H [facility] Last Admin: 06/18/19 05:27 Dose: 125 mls/hr Documented by: Piperacillin Sod/Tazobactam (Sod 3.375 gm/ Sodium Chloride) 50 mls @ 12.5 mls/hr IV Q8 [facility] Last Admin: 06/18/19 05:27 Dose: 12.5 mls/hr Documented by: Morphine Sulfate () 2 - 4 mg IV Q2H PRN PRN PRN Reason: Pain Score 4-10/10 Ondansetron HCl (Zofran) 4 mg IV Q6H PRN PRN PRN Reason: NAUSEA Sodium Chloride () 10 - 40 ml IV UD PRN PRN Reason: SALINE FLUSH Last Admin: 06/17/19 21:30 Dose: 10 ml Documented by: Medical Necessity - Tobacco Use Smoking Status: Never smoker Assessment/Plan All Active Problems (Last Reviewed 03/29/19 @ 09:19 by Flavia Zaragoza, MALIK-C) Elevated liver enzymes (Acute) Restless leg (Acute) PND (post-nasal drip) (Acute) Pulmonary embolism (Resolved) Lung nodule (Acute) 73-year-old female with pneumobilia and elevated liver enzymes 1. The patient's liver enzymes have come down since yesterday. She is afebrile with no pain this morning. She was started on antibiotics prophylactically. She does have pericholecystic fluid on the CT scan but she also had pneumobilia with no dilation of her bile ducts. This seems odd and I am ordering an MRCP today to elucidate. I am unsure if she has a duodenal mass versus enteric biliary fistula. She has never had any instrumentation of her bile duct. Orlin Espana MD Pager: [facility] [address] [place] [address], [address] [place] [address] Office:
[2019-06-18] MEDS: 0.9% Saline Lock 10 ML Syringe IV (12:13)
--- NOTE | 2019-06-18 13:37 | PN_ITS ---
Progress Note I had an MRCP performed this morning. The patient's MRCP showed a slightly dilated common bile duct with no stones in the gallbladder or the bile duct. There is no obvious cause of her pneumobilia. The patient may have passed a stone which caused the opening of the ampulla to be enlarged and cause the pneumobilia. At this point there is no stones in her gallbladder or her bile duct. Her white count remains normal and her LFTs are improving. I will try regular diet. If she tolerates a regular diet I will discharge her home. Orlin Espana MD Pager: [facility] [address] [place] [address], [address] [place] [address] Office:
--- NOTE | 2019-06-18 13:39 | DCINST_ITS ---
- Discharge Diagnoses Current Active Problems: Current Active and Chronic Problems (Last Reviewed 03/29/19 @ 09:19 by SRIRAM Buchanan) Elevated liver enzymes (Acute) You will use the following diet at home:: Regular Your food should be the consistency of: Regular Discharge Activity: No Restrictions Call your doctor if your incision/area has: Increased Pain/ Swelling Call your doctor if you observe: Fever of 101 or Higher Allergies/Adverse Reactions: Allergies sulfamethoxazole [From Bactrim] Allergy (Severe, Verified 03/29/19 09:04) Anaphylaxis estrogens, conjugated [From Premarin] Adverse Reaction (Verified 03/29/19 09:04) Other htn isosorbide [From Imdur] Adverse Reaction (Verified 03/29/19 09:04) Other, severe headache and vomitting levofloxacin [From Levaquin] Adverse Reaction (Verified 03/29/19 09:04) Other bilateral tendonitis raloxifene [From Evista] Adverse Reaction (Verified 03/29/19 09:04) Other- HTN solifenacin [From Vesicare] Adverse Reaction (Verified 03/29/19 09:04) Other trimethoprim [From Bactrim] Adverse Reaction (Verified 03/29/19 09:04) Other Medications to take at Discharge Aspirin [Aspir-Low] 81 mg PO DAILY 09/07/17 Atorvastatin Calcium [Lipitor] 80 mg PO QHS 09/07/17 Metoprolol Tartrate [Lopressor (beta eleanor)] 50 mg PO BID 09/07/17 Venlafaxine HCl [Venlafaxine HCl ER] 150 mg PO DAILY 09/07/17 Amlodipine [Norvasc] 5 mg PO DAILY #30 tab 03/26/18 fenofibric acid (choline) 135 mg capsule,delayed release 135 mg PO DAILY 04/07/18 omega-3 fatty acids 1,000 mg capsule 1,000 mg PO .QOD cap 08/02/18 ropinirole 0.25 mg tablet 0.5 mg PO QHS tab 03/29/19 Fluticasone Propionate 2 spray INTRANASAL DAILY PRN 06/17/19 Primary Care Physician: Chevy Matthwe [Primary Care Provider] - Test Results: Test results from this visit will be discussed in further detail at your follow- up appointment, if applicable. Please Follow Up With: Orlin Espana MD When: As needed. [phone]
[2019-06-18 14:34] VITALS: BP 155/60; PULSE 89; RESP 16; TEMP 37.1; O2SAT 99
--- NOTE | 2019-06-23 15:08 | NURSING ---
Discussed completion times with Jonathan KAPOOR for zosyn and 0.9% NS. Times entered on behalf of Jair Bauer RN
== END 2019-06-18 17:20 | disposition home or self-care (01) ==
PROVIDERS: Admitting Provider Surgery; PCP Family Medicine; Referring Provider Surgery; Visit Provider Surgery
DX: K83.8 Other specified diseases of biliary tract (principal); G47.33 Obstructive sleep apnea (adult) (pediatric); E78.5 Hyperlipidemia, unspecified; I10 Essential (primary) hypertension; J45.909 Unspecified asthma, uncomplicated; G25.81 Restless legs syndrome; I27.20 Pulmonary hypertension, unspecified; Z79.899 Other long term (current) drug therapy; Z79.82 Long term (current) use of aspirin; Z86.718 Personal history of other venous thrombosis and embolism; I44.0 Atrioventricular block, first degree
CPT/HCPCS: 36415; 74177; 74181; 76700; 80048; 80053; 80076; 82150; 83690; 85025; 93005; 96361; 96365; 96366; 96376; 99218; 99251; J7030; J7040; A4216; G0378; G0379; G0463

== ENCOUNTER 2019-07-07 05:39 | Day surgery (SDC) | payer MEDICARE, BC, SELFPAY ==
--- NOTE | 2019-06-24 04:40 | HP_ITS ---
Intake Intake Visit Reasons: HOSPITAL F/U ELEVATED LIVER ENZYMES Chief Complaint: hospital follow up Commis Chef Required: No Is patient in pain?: No Allergies sulfamethoxazole [From Bactrim] Allergy (Severe, Verified 03/29/19 09:04) Anaphylaxis estrogens, conjugated [From Premarin] Adverse Reaction (Verified 03/29/19 09:04) Other htn isosorbide [From Imdur] Adverse Reaction (Verified 03/29/19 09:04) Other, severe headache and vomitting levofloxacin [From Levaquin] Adverse Reaction (Verified 03/29/19 09:04) Other bilateral tendonitis raloxifene [From Evista] Adverse Reaction (Verified 03/29/19 09:04) Other- HTN solifenacin [From Vesicare] Adverse Reaction (Verified 03/29/19 09:04) Other trimethoprim [From Bactrim] Adverse Reaction (Verified 03/29/19 09:04) Other Medications Aspirin [Aspir-Low] 81 mg PO DAILY 09/07/17 [History Confirmed 03/29/19] Atorvastatin Calcium [Lipitor] 80 mg PO QHS 09/07/17 [History Confirmed 06/24/19] Metoprolol Tartrate [Lopressor (beta eleanor)] 50 mg PO BID 09/07/17 [History Confirmed 06/24/19] Venlafaxine HCl [Venlafaxine HCl ER] 150 mg PO DAILY 09/07/17 [History Confirmed 06/24/19] Amlodipine [Norvasc] 5 mg PO DAILY #30 tab 03/26/18 [Rx Confirmed 06/24/19] fenofibric acid (choline) 135 mg capsule,delayed release 135 mg PO DAILY 04/07/18 [History Confirmed 06/24/19] fluticasone propionate 50 mcg/actuation nasal spray,suspension 2 spray INTRANASAL DAILY PRN #54.6 ml 06/22/19 [Rx Confirmed 06/24/19] Is last menstrual period known: No Post menopausal: Yes Patient : No PFSH Medical History (Updated 06/24/19 @ 13:59 by Petra Mann) Hypertension (Chronic) Hyperlipidemia (Chronic) Gout (Chronic) Asthma (Acute) Broken jaw (Acute) DVT (deep venous thrombosis) (Acute) Hepatitis B (Acute) Retinal tear (Acute) Sleep apnea (Acute) Surgical History (Updated 06/24/19 @ 13:59 by Petra Mann) H/O adenoidectomy (Acute) History of bunionectomy (Acute) History of cardiac catheterization (Acute) History of cardiac catheterization (Acute) History of dilation and curettage (Acute) History of left heart catheterization (Acute) History of tonsillectomy (Acute) History of tubal ligation (Acute) H/O bilateral cataract extraction (Resolved) skin cancer removed (Resolved) Family History (Updated 06/24/19 @ 14:00 by Petra Mann) Brother Hx of heart bypass surgery Heart disease CVA (cerebral vascular accident) Cancer skin Mother Hx of heart bypass surgery Heart disease Hypertension Father Hx of heart bypass surgery Heart disease Hypertension Sister Hx of heart bypass surgery Social History (Updated 06/24/19 @ 16:[address] Orlin Espana MD) household members: spouse housing: house current occupational status: retired pets and animals: Yes pets and animals: cat(s) Smoking Status: Never smoker second hand exposure: No alcohol intake: never substance use type: does not use HPI HPI HPI: TORSTEN TORRES, is a 73 F who presents to the office today for HPI HPI Surgical H&P: Yes HPI: TORSTEN TORRES, is a 73 F who presents to the office today for Follow-up after hospitalization. The patient reports she is eating with no pain in the right upper quadrant. She has no nausea or vomiting. She says that her urine has returned to normal color. ROS General General: Yes fatigue; no weight change, appetite, colon cancer, breast cancer or weakness HEENT HEENT: No difficulty swallowing, eye injury, eye surgery, swollen glands or hoarseness Endo Endocrine: No thyroid disease, diabetes mellitus, thyroid cancer, Hair loss, heat intolerance or cold intolerance Musc Musculoskeletal: Yes gout; no back problems, arthritis, rheumatoid arthritis or joint pain Cardio Cardiovascular: Yes high blood pressure; no murmur, pacemaker, heart disease, atrial fibrillation, heart attack, heart stent, palpitations, shortness of breat with exertion or chest pain Resp Respiratory: Yes shortness of breath, Yes sleep apnea, No cough, No COPD, Yes asthma, No emphysema, No wheezing Gastro Gastrointestinal: No abdominal pain, No nausea or vomiting, No diarrhea, Yes constipation, No blood in stool, No acid reflux, No hemorrhoids, No ulcers, Yes gallbladder problem, No black,tarry stools Prabhakar Hematologic: No blood thinners, No blood disorders, No bleeding, No anemia, Yes blood clots Neuro Neurologic: No weakness Exam Const General: cooperative Orientation: alert, oriented x3 Resp Effort & Inspection: normal respiratory effort Auscultation: clear to auscultation bilaterally Cardio Rate: regular rate Rhythm: regular rhythm Heart Sounds: no murmurs GI Inspection: non-distended Palpation: soft, nontender Assessment & Plan Problems 1. Elevated liver enzymes R74.8 2. Common bile duct dilatation K83.8 Plan The patient was recently admitted with right upper quadrant pain. She had a CT scan which showed pericholecystic fluid and an ultrasound showed possible sludge. She also had an MRCP which showed no gallstones only slightly dilated common bile duct. Her LFTs were decreasing the day of discharge and she was sent home. She says she has been doing well ever since. I offered her two options today. I offered a observation and an EGD. This would ensure that there is not an ampullary mass causing the dilation. She did have sludge and pericholecystic fluid so I believe a laparoscopic cholecystectomy would also be a viable option. A cholangiogram be performed during this. The patient would like to proceed with laparoscopic cholecystectomy in an elective fashion. I discussed the procedure in detail with the patient. I discussed the risks, benefits, and alternatives of the procedure. I discussed the risks including but not limited to bleeding, infection, injury to surrounding organs such as the liver, bile duct, bowels. I did discuss the possibility of having to convert to an open procedure as well as the possibility that if any injuries occurred this may necessitate further surgery at a tertiary care center. Orlin Espana MD Pager: [facility] [address] [place] [address], [address] [place] [address] Office: Coding Level of Care Code Off vis,est,level 3 Diagnoses Elevated liver enzymes R74.8 Common bile duct dilatation K83.8 06/24/19 1640 <Electronically signed by Orlin allen MD> Date _ Orlin Espana MD I have re-examined the patient. There are no clinical changes since date of exam.
[2019-06-24 14:01] VITALS: BMI 24.8
[2019-07-07] VITALS (7 sets, daily range): BP systolic 130–156; BP diastolic 59–73; PULSE 62–77; RESP 16; TEMP 36.6–36.8; O2SAT 91–96; BMI 31.8
--- NOTE | 2019-07-07 05:48 | EKG12_ITS ---
Test Reason : PRE OP Blood Pressure : / mmHG Vent. Rate : 067 BPM Atrial Rate : 067 BPM P-R Int : 198 ms QRS Dur : 076 ms QT Int : 400 ms P-R-T Axes : 126 142 122 degrees QTc Int : 422 ms Suspect arm lead reversal, interpretation assumes no reversal SInus Rhythm Abnormal ECG When compared with ECG of 17-JUN-2019 19:08, Ectopic atrial rhythm has replaced Sinus rhythm QRS axis Shifted right Confirmed by VICK SOLIS, ISAAC ([id number]), general expeditor HERB FLEMING ([id number]) on 07/11/2019 2:53:05 PM Referred By: Orlin Espana Confirmed By:ROGELIO HICKMAN MD
[2019-07-07] MEDS: Lactated Ringers 1,000 ML 100 ML IV (06:25)
--- NOTE | 2019-07-07 07:15 | GALL_PTH ---
PATIENT: TORSTEN TORRES LOC: [facility] – [place] U#:[id number] AGE/SX: 73/F ROOM: RE07/07/[address]: Dr. Orlin Espana MD : [id number] BED: DIS: 07/07/2019 SPEC #: [id number] RECD: 07/07/19 10:23 STATUS: NAIMA REKimi #: [id number] KAYLEE: 07/07/19 07:[address]: Orlin Espana DEPT: SURGICAL PATHOLOGY RECD BY: Frankie Merchant ENTERED: 07/07/19 10:42 SP TYPE: ALTAGRACIA SEGUNDO DR: Dr. Chevy Matthew DO Tissues: Gallbladder, NOS Procedures: Surgery Specimen Level III HEADER OPERATION: Laparoscopic cholecystectomy with IOC PRE-OP DIAGNOSIS: Elevated liver enzymes and common bile duct dilation TISSUE SUBMITTED: Gallbladder MICROSCOPIC DIAGNOSIS Gallbladder, cholecystectomy: Moderate to marked chronic cholecystitis. No stones are identified in the container or in the gallbladder. SJ:william 07/08/19 MICROSCOPIC DESCRIPTION Slides are reviewed. GROSS DESCRIPTION Received is one container labeled with the patient's name and designated gallbladder. The specimen consists of a gallbladder measuring 8.5 x 5 x 3 cm. The external surface is smooth and glistening. Focally, it is granular, hemorrhagic and contains cautery artifact. The lumen of the gallbladder contains yellow-green mucoid bile. No stones are identified in the container or in the gallbladder. The mucosa is bile-stained and without any mass lesions. The gallbladder wall measures up to 0.3 cm in thickness and is free of mass lesions. Entertainment Usher sections of the gallbladder and the cystic duct at margin of resection are submitted in one cassette. / AM:william 07/07/19 TC:5 CPT: 58859
--- NOTE | 2019-07-07 07:15 | RAD_ITS ---
STUDY: INTRAOPERATIVE CHOLANGIOGRAM. REASON FOR EXAM: Female, 73 years old. PAIN. 1 CINE RUN = 117 IMAGES FLUOROSCOPY TIME (if supplied): ( 17 seconds ) minutes/seconds TECHNIQUE: An intraoperative cholangiogram was performed by the surgeon. Imaging was submitted. COMPARISON: None. FINDINGS: Contrast was injected. Imaging was obtained. Mildly dilated common bile duct. No intraluminal filling defect is seen. There is free flow of contrast into the duodenum. RAD/Cholangiogram/ O R,Initial IMPRESSION: Mildly dilated common bile duct. No evidence of residual calculi. There is free flow of contrast into the duodenum. Electronically Signed: Kerwin Joe, at 12:38 EST , Service support ,
[2019-07-07] MEDS: Bupiv/Epi 0.25% 30 ML Vial (08:26)
--- NOTE | 2019-07-07 09:00 | PCM.OPRPT ---
Problem List (1) Cholelithiasis Status: Acute Qualifiers: Cholelithiasis location: gallbladder Cholecystitis presence: without cholecystitis Biliary obstruction: without biliary obstruction Qualified Code(s): K80.20 - Calculus of gallbladder without cholecystitis without obstruction (2) Elevated liver enzymes Status: Acute Report of Operation Date of Procedure: 07/07/19 Pre-Operative Diagnosis: History of dilated liver enzymes and elevated LFTs Post-Operative Diagnosis: Cholelithiasis. Umbilical hernia Surgery/Procedure Performed:: Laparoscopic cholecystectomy with cholangiogram. Umbilical hernia repair Specimen's removed: Gallbladder and contents Description of Procedure: After obtaining informed consent patient was brought back to the operating room. General anesthesia was induced. The abdomen was prepped and draped in usual sterile fashion. A small curvilinear incision was made inferior to the umbilicus and deepened to the level of fascia. The umbilical hernia was used as the entry site for the port. Next the peritoneum was elevated and incised in the same fashion. Finger sweep was performed and the Ruiz trocar was placed into the abdomen. The balloon was inflated. The abdomen was inflated to 15 mmHg. Next a camera was introduced into the abdomen and the abdomen was inspected. Next under direct visualization three 5-mm ports were placed one subxiphoid and 2 subcostal. Next the gallbladder was elevated and retracted toward the right shoulder. The peritoneum was stripped from the gallbladder. The infundibulum was located and retracted laterally. Next the triangle of Calot was dissected and the cystic duct and cystic artery were identified. Cholangiograms were performed. A clip was placed in the proximal cystic duct and a jojo was made in the cystic duct. A small incision was made in the right upper quadrant and the Ranfac catheter was placed through this and into the cystic duct and a clip was placed. Under fluoroscopy contrast was instilled into the gallbladder and the common duct, cystic duct as well as proximal hepatic ducts were identified. There was good filling of the duodenum. There were no filling defects noted in the common bile duct. The clip was removed and the Ranfac catheter was removed from the cystic duct. The gallbladder was regrasped. Three hemolock clips were placed across the cystic duct. The cystic duct was then divided leaving 2 clips on the stump. The cystic artery was clipped and divided in the same fashion. The hook cautery was then used to take the gallbladder off of the gallbladder bed. Hemostasis was obtained. Gallbladder fossa was irrigated and no active bleeding or bile leakage was noted. Next the camera was introduced in the subxiphoid port. An Endopouch bag was placed through the umbilical port and the gallbladder was placed into it. The gallbladder was then removed through the umbilical incision. The camera was then reinserted through the umbilical port. The gallbladder fossa was inspected once more and noted to be hemostatic with no leaking bile. The abdomen was suctioned dry. The 5 mm ports were removed under direct visualization. The umbilical port was then removed and the air was removed from the abdomen. Next several 0 Vicryl sutures, hernia was reapproximated. The umbilical port site was irrigated local anesthetic was administered to all the incisions. The umbilical stalk was sutured to the anterior fascia using a 3-0 Vicryl suture. All the incisions were closed with interrupted subcuticular 4-0 Monocryl sutures followed by Steri-Strips and dressings. The patient was awoken and taken to PACU in stable condition. - Admit VTE Documentation VTE Mechan Device Prophylaxis: SCD's
--- NOTE | 2019-07-07 09:06 | PCM.DC.GB ---
Discharge Diet: Light diet - advance as tolerated Discharge Activity: Return to Normal Activity, May Not Drive - for 2-3 days or while taking narcotic pain medicataions., - - Do not drive, work heavy equipment or sign legal documents for 24 hours. May shower in (days): 1 - with the bandage in place. Lifting Restrictions: 20 lbs for 2 weeks Additional Activity Instructions:: Pain medication may cause nausea. You should typically eat light foods as you take your pain medications. Pain medication may also cause constipation. If this is a problem for you, please discuss with your doctor. Call your doctor if your incision/area has: Continuous Slow Oozing, Sudden Increased Bleeding, Increased Pain/ Swelling, Increased Redness, Foul Smelling Discharge, Fever of 101 or Higher Call your doctor if you observe: Fever of 101 or Higher Suture Line Care: Avoid Pulling/Pushing, Avoid Pinching/Bending Additional Dressing/Incision Instructions:: Leave operative bandaids on for 2 days. When you remove dressing, leave Steri-Strips on until your follow-up appointment, or until the Steri-Strips fall off on their own. Allergies/Adverse Reactions: Allergies sulfamethoxazole [From Bactrim] Allergy (Severe, Verified 07/07/19 05:58) Anaphylaxis estrogens, conjugated [From Premarin] Adverse Reaction (Verified 07/07/19 05:58) Other htn isosorbide [From Imdur] Adverse Reaction (Verified 07/07/19 05:58) Other, severe headache and vomitting levofloxacin [From Levaquin] Adverse Reaction (Verified 07/07/19 05:58) Other bilateral tendonitis raloxifene [From Evista] Adverse Reaction (Verified 07/07/19 05:58) Other- HTN solifenacin [From Vesicare] Adverse Reaction (Verified 07/07/19 05:58) Other trimethoprim [From Bactrim] Adverse Reaction (Verified 07/07/19 05:58) Other Medications to take at Discharge Aspirin [Aspir-Low] 81 mg PO DAILY 09/07/17 Atorvastatin Calcium [Lipitor] 80 mg PO QHS 09/07/17 Metoprolol Tartrate [Lopressor (beta eleanor)] 50 mg PO BID 09/07/17 Venlafaxine HCl [Venlafaxine HCl ER] 150 mg PO DAILY 09/07/17 Amlodipine [Norvasc] 5 mg PO DAILY #30 tab 03/26/18 fenofibric acid (choline) 135 mg capsule,delayed release 135 mg PO DAILY 04/07/18 fluticasone propionate 50 mcg/actuation nasal spray,suspension 2 spray INTRANASAL DAILY PRN #54.6 ml 06/22/19 Ascorbate Calcium/Bioflavonoid [Fidelia-C 500 mg Tablet] 1 ea PO DAILY 06/30/19 [place]-3 Fatty Acids/Fish Oil [[place] 3 Fish Oil Softgel] 1 ea PO DAILY 06/30/19 Pyridoxine HCl (Vitamin B6) [Vitamin B-6] 100 mg PO DAILY 06/30/19 Ropinirole HCl 0.5 mg PO QHS 06/30/19 Vitamin B Complex 1 ea PO DAILY 06/30/19 Hydrocodone/Acetaminophen [Hydrocodon-Acetaminophen 5-325] 1 - 2 tab PO Q6H PRN 5 Days #30 tablet 07/07/19 The following prescriptions were given: Hydrocodone/Acetaminophen [Hydrocodon-Acetaminophen 5-325] 1 - 2 tab PO Q6H PRN 5 Days #30 tablet PRN Reason: Pain Score 4-10/10 Transmission Status: Sent to [facility] Primary Care Physician: Chevy Matthew [Primary Care Provider] - Test Results: Test results from this visit will be discussed in further detail at your follow-up appointment, if applicable. Please Follow Up With: Orlin Espana MD When: Please call to schedule 2 week follow up appointment. [phone]
[2019-07-07] MEDS: HYDROcodone Bitartrate/Apap 5/325 Tablet PO (10:02)
== END 2019-07-07 11:58 | disposition home or self-care (01) ==
LOC: SDC 05:40 → AC 05:41
PROVIDERS: PCP Family Medicine; Referring Provider Surgery; Visit Provider Surgery
PROC: (CPT 47610; principal; 2019-07-07 06:55)
DX: K81.1 Chronic cholecystitis (principal); R74.8 Abnormal levels of other serum enzymes; K83.8 Other specified diseases of biliary tract; K42.9 Umbilical hernia without obstruction or gangrene; I10 Essential (primary) hypertension; E78.5 Hyperlipidemia, unspecified; M10.9 Gout, unspecified; Z79.82 Long term (current) use of aspirin; Z79.899 Other long term (current) drug therapy; Z88.1 Allergy status to other antibiotic agents; Z88.2 Allergy status to sulfonamides; Z98.51 Tubal ligation status
CPT/HCPCS: 00750; 47563; 49585; 74300; 76000; 88304; 93005; J7120; J2405

== ENCOUNTER 2019-11-05 14:32 | Emergency (ER) | payer MEDICARE, BC, SELFPAY ==
[2019-09-29 09:20] VITALS: BMI 31.8
[2019-11-05 14:34] VITALS: BP 143/60; PULSE 89; RESP 19; TEMP 36.9; O2SAT 98; BMI 31.8
--- NOTE | 2019-11-05 15:10 | EKG12_ITS ---
Test Reason : DYSRHYTHMIA Blood Pressure : / mmHG Vent. Rate : 081 BPM Atrial Rate : 081 BPM P-R Int : 196 ms QRS Dur : 076 ms QT Int : 368 ms P-R-T Axes : 054 057 080 degrees QTc Int : 427 ms Normal sinus rhythm T wave abnormality, consider lateral ischemia Abnormal ECG Confirmed by JV SOLIS, JEB ([id number]), supervising editor news reel HREB FLEMING ([id number]) on 11/08/2019 10:38:46 AM Referred By: JAYLYN Confirmed By:JEB CARIAS MD
--- NOTE | 2019-11-05 15:11 | ED.DCSUM_ITS ---
- ER Visit Summary Date of Service: 11/05/19 Chief Complaint: [Abdominal pain] History of Present Illness: The patient is a 73 F [ presents the emergency department complaint of*1:30 PM. Patient states that the pain started suddenly. Patient states that she had 3 bouts of and the pain was severe in the upper quadrant and it reminded her of her gallbladder pain before she had her gallbladder removed. Patient denies any urinary symptoms with it. Patient did feel like she needed to have a bowel movement and did have a bowel movement. Patient denies urinary symptoms. She is never had pain quite like this before. Currently her pain is a 0 out of 10. She denies any blood in her stool or black tarry stools. Patient states that the pain took her breath away but was not a pleuritic pain. 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 Patient was on anticoagulation for 6 months but is currently not on anticoagulation.] Physical Examination: [HEENT-PERRLA, EOMI. Cranial nerves II through XII grossly intact. TMs clear. Mucous membranes moist. No adenopathy. Cardiovascular-regular rate and rhythm without murmur or ectopy Lungs-clear to auscultation, chest wall stable without crepitus or subcu emphysema Abdomen-normoactive bowel sounds, soft, nontender, no rebound or rigidity, no peritoneal signs. Extremities-intact ?4, normal range of motion, normal pulses, atraumatic] Test Results: [CBC with differential showed a week and a 6.9, hemoglobin 13, hematocrit 41.5, placed 350. Chemistries unremarkable. Urinalysis unremarkable. Troponin less than 0.015. D-dimer was 0.3. EKG obtained showed a sinus rhythm with a ventricular rate of 81 bpm with some nonspecific ST changes and when compared with prior EKG from June 2019 no significant changes noted. Patient had a CT scan of the abdomen pelvis without contrast that showed a fat-containing ventral hernia and some degenerative changes of the spine as well as some diverticulosis otherwise nothing acute.] Emergency Department Course and Treatment: [Patient did not require any pain medication in department as her symptoms had resolved.] Treatment Plan: [Patient advised to follow-up with her primary care physician in 3 to 5 days. Advised to return if worsening pain, fever, vomiting, or condition should worsen anyway.] Disposition: [Discharged home in stable condition] Impression: [Abdominal pain-etiology uncertain] This note was generated with Scan•Jour dictation software. It may contain incorrect words, spelling, and punctuation that were not noted in review of the chart prior to signing ED Disposition - Plan for ED Patient: Referrals: Chevy Matthew DO [Primary Care Provider] -
[2019-11-05 15:26] LABS: Absolute Lymphocyte Count 1.56 X10^3/uL (0.83-4.51); Absolute Neutrophil Count 4.6 X10^3/uL (2.0-7.7); Basophil# 0.01 X10^3/uL; Basophil% 0.1 % (0-1); Eosinophils% 4.3 % (0-5); Hematocrit 41.5 % (37-47); Hemoglobin 13.1 g/dL (12.0-15.0); Lymphocyte # 1.56 X10^3/ul (4.0); Lymphocyte % 22.5 % (19-41); Mean Corp Hgb Conc 31.6 g/dL (32-36); Mean Corpuscular Hgb 28.9 pg (27.0-32.0); Mean Corpuscular Volume 91.4 fL (81-99); Mean Platelet Vol. 9.6 fl (6.2-12.0); Monocyte# 0.36 X10^3/uL; Monocyte% 5.2 % (0-10); NRBC Flagged by Analyzer 0 % (0-5); Neutrophil # 4.64 X10^3/uL (2.7-7.7); Neutrophil % 67.2 % (47-70); Platelet Count 350 K/mm3 (150-450); RBC Distribution Width CV 14.3 % (11.6-14.6); RBC Distribution Width SD 47.8 fl (35.1-43.9); Red Blood Count 4.54 M/mm3 (4.2-5.4); White Blood Count 6.9 K/mm3 (4.4-11.0)
[2019-11-05 15:38] LABS: Mucous, Urine 0 SEEN /hpf (<or=2+)
[2019-11-05 15:39] LABS: Anion Gap 7 (5-15); BUN 31 mg/dL (7-18); BUN/Creat Ratio 25.4 RATIO (10-20); Calcium,Total 8.9 mg/dL (8.5-10.1); Chloride 107 mmol/L (98-107); Creatinine, Serum 1.22 mg/dL (0.55-1.02); EST Glomerular Filtration Rate 46 mL/min (>60); Est Glom Filt Rate - Afr Amer 56 mL/min (>60); Estimated Creatinine Clearance 34.99 ml/min; Glucose 217 mg/dL (74-106); Potassium 3.7 mmol/L (3.5-5.1); Sodium Level 139 mmol/L (136-145)
[2019-11-05 15:43] LABS: Color, Urine Yellow (Yellow); Glucose, Dipstick 50 mg/dl (Normal); Ketone-Dipstick Negative (Negative); Leukocyte Esterase-Dipstick 100 /ul (Negative); Nitrite-Dipstick Negative (Negative); Occult Blood-Urine Negative /ul (Negative); Protein-Dipstick 15 mg/dl (Negative); Specific Gravity, Urine 1.025 (1.002-1.030); Urine Bilirubin Dipstick Negative (Negative); Urine Clarity Clear (Clear); Urine Urobilinogen Normal (Normal)
[2019-11-05] MEDS: 0.9% Normal Saline 1,000 ML 150 ML IV (15:52)
--- NOTE | 2019-11-05 15:59 | CT_ITS ---
STUDY: CT ABDOMEN AND PELVIS WITHOUT CONTRAST REASON FOR EXAM: Female, 73 years old. LEFT FLANK AND LEFT EPIGASTRIC PAIN. PRIOR CHOLECYSTECTOMY RADIATION DOSAGE (If Supplied By Facility): CTDIvol = ( 10.10 ) mGy, DLP = ( 497.00 ) mGycm TECHNIQUE: Transaxial images were obtained from the dome of the diaphragm to the symphysis pubis without oral contrast, and without intravenous contrast. Sagittal and coronal images were reconstructed. Individualized dose optimization techniques were used for this CT. COMPARISON: June 17, 2019 FINDINGS: There is minimal bibasilar atelectasis and/or scarring. There are coronary artery calcifications present. The lack of intravenous contrast limits evaluation of solid visceral organs. There is decreased attenuation of the liver consistent with steatosis. There is pneumobilia again visualized. There are surgical clips in the gallbladder fossa consistent with a prior cholecystectomy. Normal spleen. Normal pancreas. Normal bilateral adrenal glands. Normal right kidney. There is a too small to characterize high attenuation rounded focus within the upper pole of the left kidney which may reflect a proteinaceous cyst. Normal visualized stomach. Normal small intestine. There are multiple colonic diverticula consistent with diverticulosis. There is diffuse atherosclerotic calcification of the abdominal aorta, without a demonstrated aneurysm. Normal inferior vena cava. Normal retroperitoneum. Normal urinary bladder. There is a grossly stable fat-containing supraumbilical ventral hernia. There are diffuse degenerative changes of the lumbar spine. CT/Abdomen/Pelvis without Cont IMPRESSION: Fatty infiltration of the liver. Colonic diverticulosis. Atherosclerosis. Degenerative changes of the lumbar spine. Stable fat-containing supraumbilical ventral hernia. Electronically Signed: Steffi Valentine MD at 16:43 EDT Tel , Service support ,
[2019-11-05 16:03] LABS: White Blood Cells 5-10 SEEN /hpf (0-5)
[2019-11-05 16:04] LABS: Bacteria 1+ /hpf (None Seen); Red Blood Cells-Urine 0-5 SEEN /hpf (0-5); Renal Epithelial Cells 0-5 SEEN /hpf (0-5); Squamous Epithelial Cells - UA 0-5 SEEN /hpf (5-10)
[2019-11-05 16:32] VITALS: BP 159/63; PULSE 88; RESP 17; O2SAT 98
--- NOTE | 2019-11-05 16:51 | ED.DEP ---
ED Disposition - Plan for ED Patient: Instructions: ED Abdominal Pain Unkn Cause Fem Referrals: Chevy Matthew DO [Primary Care Provider] - 3-5 Days
[2019-11-05 17:00] VITALS: BP 146/69; PULSE 85; RESP 16; O2SAT 98
== END 2019-11-05 17:02 | disposition home or self-care (01) ==
LOC: ED 16:06
PROVIDERS: Emergency Provider Emergency Medicine; PCP Family Medicine
DX: R10.9 Unspecified abdominal pain (principal); E78.00 Pure hypercholesterolemia, unspecified; I10 Essential (primary) hypertension; K43.9 Ventral hernia without obstruction or gangrene; K57.30 Diverticulosis of large intestine without perforation or abscess without bleeding; Z86.711 Personal history of pulmonary embolism; Z86.718 Personal history of other venous thrombosis and embolism; Z90.49 Acquired absence of other specified parts of digestive tract
CPT/HCPCS: 74176; 80048; 81001; 84484; 85025; 85379; 93005; 96360; 96361; 99285; J7030; A4216

== ENCOUNTER → 2019-12-23 11:39 | Outpatient (CLI) | payer MEDICARE, BC, SELFPAY ==
[2019-12-23 09:09] VITALS: BMI 31.8
--- NOTE | 2019-12-23 11:45 | RAD_ITS ---
STUDY: X-RAY CHEST REASON FOR EXAM: Female, 74 years old. Shortness of breath, patient has been having left sided upper abdomen pain, Hx PE in the past TECHNIQUE: PA and lateral views of the chest. COMPARISON: Comparison is made with prior examination dated 03/09/2019. FINDINGS: Stable elevation of the right hemidiaphragm. Stable mild increased linear markings at the lung bases slightly more prominent on the right side suggestive of a linear scar. There is no demonstrated pleural abnormality. Normal size heart. Normal mediastinum and kana. Normal visualized pulmonary arteries. Normal visualized aortic arch and descending thoracic aorta. There is demineralization of the osseous structures. Normal visualized ribs, clavicles, and shoulders. There is no demonstrated abnormality of the visualized soft tissue structures of the upper abdomen. RAD/Chest PA and Lateral IMPRESSION: Stable examination. Electronically Signed: Kerwin Joe, at 15:32 EDT , Service support ,
== END ==
PROVIDERS: PCP Family Medicine; Referring Provider Nurse Practitioner Acute Care; Visit Provider Nurse Practitioner Acute Care
DX: R06.02 Shortness of breath (principal)
CPT/HCPCS: 71046

== ENCOUNTER → 2020-01-31 08:34 | Outpatient (CLI) | payer MEDICARE, BC, SELFPAY ==
[2019-12-23 12:54] VITALS: BMI 31.3
--- NOTE | 2020-01-31 14:53 | PFTCOMP ---
COMPLETE PULMONARY FUNCTION TEST INTERPRETATION Brief HPI: Patient is a 74 year old female, currently under the care of Flavia Zaragoza, who presents to [facility] for complete pulmonary function tests secondary to diagnosis of dyspnea. Respiratory therapist reports good effort and reproducible results. Interpretation: Forced expiration spirometry shows no large airways obstructive ventilatory defect with an FEV1 of 82% predicted. There is no significant bronchodilator response by strict ATS criteria. Spirograms are of good quality and plateau normally. The respiratory flow volume loop shows a normal pattern. Lung volumes by body plethysmography show an elevated total lung capacity at 5.77 L, 126% predicted. FRC and RV are elevated out of proportion. Lung volume measurements are consistent with hyperinflation and air-trapping. Diffusion capacity by carbon monoxide is at the lower limit of normal at 61% predicted. The airway resistance is elevated. No previous pulmonary function tests were available for review. Impression: Isolated reduction in diffusion capacity consistent with a pulmonary vascular disorder. Patient did have difficulty with testing, but had good effort over multiple attempts.
== END ==
PROVIDERS: PCP Family Medicine; Referring Provider Nurse Practitioner Acute Care; Visit Provider Nurse Practitioner Acute Care
DX: R06.02 Shortness of breath (principal)
CPT/HCPCS: 94060; 94726; 94729

== ENCOUNTER → 2020-02-06 09:22 | Outpatient (CLI) | payer MEDICARE, BC, SELFPAY ==
[2019-12-23 12:54] VITALS: BMI 31.3
[2020-02-06 10:05] VITALS: PULSE 89; PULSE 90; PULSE 91; PULSE 92; PULSE 94; PULSE 96; PULSE 97; O2SAT 95; O2SAT 96; O2SAT 97; O2SAT 98
--- NOTE | 2020-02-06 13:28 | PCM.PSN.6M ---
PSN 6 Minute Walk Test - 6 Minute Walk Test 6 Minute Walk Test: 6 Minute Walk Test PSN:6-Minute Walk Test Start: 02/06/20 10:05 Freq: Status: Active Protocol: [id number] Document 02/06/20 10:05 [facility] (Rec: 02/06/20 10:11 [facility] [id number]) 6 Minute Walk Test Date Performed 02/06/20 Time Performed 09:30 Height 5 ft 3 in Weight: 175 lb Weight in Pounds 175.[address]: Flavia Zaragoza [employer] Assistive device used: None Pre-test Oxygen Delivery Method Room Air Pulse Ox (%) 97 Pulse Rate (60-100 beats/min) 97 Dyspnea Tristan Scale (0-10) 2 1st minute Oxygen Delivery Method Room Air Pulse Ox (%) 96 Pulse Rate (60-100 beats/min) 96 Dyspnea Tristan Scale (0-10) 3 Number of Rests Taken 0 Reported Symptoms Increased Work of Breathing 2nd minute Oxygen Delivery Method Room Air Pulse Ox (%) 95 Pulse Rate (60-100 beats/min) 94 Dyspnea Tristan Scale (0-10) 4 Number of Rests Taken 0 Reported Symptoms Increased Work of Breathing 3rd minute Oxygen Delivery Method Room Air Pulse Ox (%) 95 Pulse Rate (60-100 beats/min) 91 Dyspnea Tristan Scale (0-10) 4 Number of Rests Taken 1 Reported Symptoms Increased Work of Breathing 4th minute Oxygen Delivery Method Room Air Pulse Ox (%) 95 Pulse Rate (60-100 beats/min) 89 Dyspnea Tristan Scale (0-10) 4 Number of Rests Taken 0 Reported Symptoms Increased Work of Breathing 5th minute Oxygen Delivery Method Room Air Pulse Ox (%) 96 Pulse Rate (60-100 beats/min) 92 Dyspnea Tristan Scale (0-10) 4 Number of Rests Taken 0 Reported Symptoms Increased Work of Breathing 6th minute Oxygen Delivery Method Room Air Pulse Ox (%) 95 Pulse Rate (60-100 beats/min) 94 Dyspnea Tristan Scale (0-10) 5 Number of Rests Taken 0 Reported Symptoms Increased Work of Breathing Post-test Oxygen Delivery Method Room Air Pulse Ox (%) 98 Pulse Rate (60-100 beats/min) 90 Dyspnea Tristan Scale (0-10) 2 Full Laps Walked 13 Partial Lap, Number of Tiles Walked 14 Total Distance Walked (ft) 781 - Interpretation Interpretation: The patient ambulated 781 feet over the course of 6 minutes beginning on room air. Pretesting oxygen saturation was noted to be 97% on room air. With ambulation, the tawanda oxygen saturation was 95%. Although there was evidence of impaired walk distance, there was no significant exertional oxygen desaturation. - Recommendations Recommendations: There is no indication for the use of supplemental oxygen at this time.
== END ==
PROVIDERS: PCP Family Medicine; Referring Provider Nurse Practitioner Acute Care; Visit Provider Nurse Practitioner Acute Care
DX: R06.02 Shortness of breath (principal)
CPT/HCPCS: 94618

== ENCOUNTER → 2020-03-05 12:32 | Outpatient (CLI) | payer MEDICARE, BC, SELFPAY ==
[2020-02-14 12:01] VITALS: BMI 32.2
--- NOTE | 2020-03-05 13:00 | RAD_ITS ---
STUDY: X-RAY - PELVIS AND LEFT HIP REASON FOR EXAM: Left hip pain and numbness. TECHNIQUE: 2 views of the pelvis and hip. COMPARISON: None. FINDINGS: There is vascular calcification. There are mild degenerative changes of the sacroiliac joints bilaterally. There is an enthesophyte at the right iliac wing. Normal bilateral superior and inferior pubic rami. Normal pubic symphysis. Normal bilateral ischial tuberosities. Normal visualized femoral head. Normal acetabulum. Normal hip joint. RAD/HIP, UNI W/ Pelvis 2-3 Views IMPRESSION: Mild degenerative changes of the sacroiliac joints bilaterally. Unremarkable x-ray examination of the left hip. Electronically Signed: Damon Hoyos MD at 14:13 EDT Tel , Service support ,
== END ==
PROVIDERS: PCP Family Medicine; Referring Provider Family Medicine; Visit Provider Family Medicine
DX: M25.552 Pain in left hip (principal)
CPT/HCPCS: 73502

== ENCOUNTER 2020-04-05 19:21 | Emergency (ER) | payer MEDICARE, BC, SELFPAY ==
[2020-02-14 12:01] VITALS: BMI 32.2
[2020-04-05 19:22] VITALS: BP 157/74; PULSE 114; RESP 18; TEMP 36.6; O2SAT 96; BMI 31.8
[2020-04-05 20:22] VITALS: BP 187/60; PULSE 115; RESP 20; O2SAT 96
[2020-04-05 20:24] LABS: Absolute Lymphocyte Count 0.46 X10^3/uL (0.83-4.51); Absolute Neutrophil Count 11.3 X10^3/uL (2.0-7.7); Basophil# 0.02 X10^3/uL; Basophil% 0.2 % (0-1); Eosinophil# 0.05 X10^3/uL; Eosinophils% 0.4 % (0-5); Hematocrit 40.6 % (37-47); Hemoglobin 12.1 g/dL (12.0-15.0); Lymphocyte # 0.46 X10^3/ul (4.0); Lymphocyte % 3.8 % (19-41); Mean Corp Hgb Conc 29.8 g/dL (32-36); Mean Corpuscular Hgb 26.7 pg (27.0-32.0); Mean Corpuscular Volume 89.6 fL (81-99); Mean Platelet Vol. 9.1 fl (6.2-12.0); Monocyte# 0.39 X10^3/uL; Monocyte% 3.2 % (0-10); NRBC Flagged by Analyzer 0 % (0-5); Neutrophil # 11.26 X10^3/uL (2.7-7.7); Neutrophil % 91.9 % (47-70); POSITIVE DIFFERENTIAL YES; Platelet Count 360 K/mm3 (150-450); RBC Distribution Width CV 14.1 % (11.6-14.6); RBC Distribution Width SD 46.8 fl (35.1-43.9); Red Blood Count 4.53 M/mm3 (4.2-5.4); White Blood Count 12.2 K/mm3 (4.4-11.0)
--- NOTE | 2020-04-05 20:24 | EKG12_ITS ---
Test Reason : CP Blood Pressure : / mmHG Vent. Rate : 110 BPM Atrial Rate : 110 BPM P-R Int : 192 ms QRS Dur : 076 ms QT Int : 306 ms P-R-T Axes : 052 053 147 degrees QTc Int : [address] & T wave abnormality, consider inferolateral ischemia Abnormal ECG Confirmed by JV SOLIS, JEB ([id number]), photography editor HERB FLEMING ([id number]) on 04/09/2020 9:44:05 AM Referred By: Confirmed By:JEB CARIAS MD
[2020-04-05 20:27] LABS: Differential Indicated SCAN CRITERIA MET
--- NOTE | 2020-04-05 20:31 | ED.DCSUM_ITS ---
History of Present Illness Chief Complaint: Abd Pain Detail of Chief Complaint: Epigastric pain Informant: Patient Onset: Hours - Last episode 1430. She had one episode that lasted a minute 10 minutes later had another episode that lasted approximately minute and third e pisode that lasted a minute as well. The third episode occurred 2 minutes after the second episode. She states the pain was so severe it took her breath elba Context: Sudden Onset Timing: Intermittent Quality: Pain Location: . Subxiphoid Current Severity: - - None Maximum Severity: Severe Worsened by: Nothing Relieved by: None nothing. Associated Symptoms: Vomiting 3 hours later Narrative: Patient is an elderly woman who reports with epigastric intermittent pain x3. Patient reports she vomited 3 hours after the last episode. She had similar presentation in November and her work-up was negative at that time. She denies black or maroon stool. Emesis without blood or coffee-ground appearing material. She is presently pain-free. The pain did not radiate through to her back. She had no other symptoms. There was no exacerbating, precipitating or alleviating factors. She has a remote history of DVT. She presently has no risk factors for DVT. Prior similar symptoms: Yes - November with no known cause Recent Illness/Hospitalization: No - Past Medical History (1) Cholelithiasis Status: Acute (2) PND (post-nasal drip) Status: Acute (3) Shortness of breath Status: Acute (4) Gout Status: Chronic (5) Hyperlipidemia Status: Chronic (6) Hypertension Status: Chronic (7) VIOLETTA (obstructive sleep apnea) Status: Chronic Comment: CPAP 13 cm water (8) Pulmonary hypertension Status: Chronic (9) Pulmonary embolism Status: Resolved Past Medical History - Allergies and Home Meds Allergies/Adverse Reactions: Allergies sulfamethoxazole [From Bactrim] Allergy (Severe, Verified 04/05/20 19:26) Anaphylaxis estrogens, conjugated [From Premarin] Adverse Reaction (Verified 04/05/20 19:26) Other htn isosorbide [From Imdur] Adverse Reaction (Verified 04/05/20 19:26) Other, severe headache and vomitting levofloxacin [From Levaquin] Adverse Reaction (Verified 04/05/20 19:26) Other bilateral tendonitis raloxifene [From Evista] Adverse Reaction (Verified 04/05/20 19:26) Other- HTN solifenacin [From Vesicare] Adverse Reaction (Verified 04/05/20 19:26) Other trimethoprim [From Bactrim] Adverse Reaction (Verified 04/05/20 19:26) Other Primary Care Physician: Chevy Matthew DO [Primary Care Provider] - Prior records reviewed: Yes Surgical History: cholecystectomy, tonsillectomy, - - Tubal ligation, cataract surgery, skin biopsies Lives: Alone Smoking Status: Never smoker Alcohol: None Drugs: None - Family History Maternal Family History: Family History (Last Reviewed 02/15/20 @ 08:30 by Chantale Lagos) Brother Hx of heart bypass surgery Heart disease CVA (cerebral vascular accident) Cancer Mother Hx of heart bypass surgery Heart disease Hypertension Father Hx of heart bypass surgery Heart disease Hypertension Sister Hx of heart bypass surgery Family History: Reports: Heart Disease Paternal Family History: Family History (Last Reviewed 02/15/20 @ 08:30 by Chantale Lagos) Brother Hx of heart bypass surgery Heart disease CVA (cerebral vascular accident) Cancer Mother Hx of heart bypass surgery Heart disease Hypertension Father Hx of heart bypass surgery Heart disease Hypertension Sister Hx of heart bypass surgery Family History: Reports: Heart Disease Review of Systems General: Denies: Chills, Fever, Malaise, Sweats Eyes: Denies: Visual changes - bilaterally, Diplopia ENT: Denies: Rhinorrhea, Sore throat Cardiovascular: Reports: Chest pain. Denies: Palpitations, Heart racing Respiratory: Denies: Dyspnea, Cough, Dyspnea on exertion, Orthopnea, Paroxysmal nocturnal dyspnea Gastrointestinal: Reports: Abdominal pain, Nausea. Denies: Vomiting, Diarrhea, Constipation, Melena, Hematochezia, -, - Genitourinary: Denies: Dysuria, Hematuria, Frequency Musculoskeletal: Denies: Myalgias, Arthralgias, Neck pain, Back pain, Swelling, Extremity Pain Skin: Denies: Rash, Wounds Neurological: Denies: Headache, Weakness, Numbness Endocrine: Denies: Polyuria, Polydipsia Hematologic: Denies: Easy bruising, Easy bleeding Physical Exam Vital Signs/Narrative: Vital Signs Temp Pulse Resp BP Pulse Ox 04/05/20 20:22 115 H 20 H 187/60 H 96 04/05/20 19:22 97.9 F 114 H 18 157/74 H 96 Inital Vital Signs reviewed: Yes General: Well nourished, Well developed, No Acute Distress Head: Normocephalic, Atraumatic Eyes: Perrl, EOMI. Negative for: Pale conjunctiva, Scleral icterus ENT: Moist mucous membranes, No rhinorrhea Neck: Supple, Nontender, No lymphadenopathy, No JVD Cardiovascular: Regular rate, Regular rhythm, No murmurs, Normal S1, Normal S2 Respiratory: No distress, CTA bilaterally, Chest nontender Abdomen: Soft, Nondistended, Normal bowel sounds, No masses, Tender - Tenderness to deep palpation epigastrium.. Negative for: Nontender Rectal: Deferred Back: Nontender, Normal Inspection Extremities: Nontender, No edema Skin: Normal color, No rash, No Trauma. Negative for: Cyanosis, Diaphoresis, Jaundice Neurological: Alert, Oriented x3, Cranial nerves II-XII grossly intact, Normal Strength, Normal Sensation Psychological: Normal affect, Normal Mood Diagnostic/Tx/Re-eval Impressions Chest X-Ray 04/05/20 20:45 IMPRESSION: Minor discoid atelectasis or scarring in left lower lobe. No acute cardiopulmonary pathology. Electronically Signed: Mateo Perkins MD at 21:28 EST , Service support , Abdomen Ultrasound 04/05/20 21:07 IMPRESSION: Nonspecific enlarged fatty infiltrated liver status post cholecystectomy. Electronically Signed: Mateo Perkins MD at 22:36 EST , Service support , 04/05/20 20:45 Chest PA and Lateral [RAD] Stat 04/05/20 21:07 Abdomen Limited [US] Stat Laboratory Results 04/05/20 04/05/20 04/05/20 20:05 20:05 20:05 WBC 12.2 H RBC 4.53 Hgb 12.1 Hct 40.6 MCV 89.6 MCH 26.7 L MCHC 29.8 L RDW Std Deviation 46.8 H RDW Coeff of Justin 14.1 Plt Count 360 MPV 9.1 Immature Gran % (Auto) 0.500 Neut % (Auto) 91.9 H Lymph % (Auto) 3.8 L [place] % (Auto) 3.2 Eos % (Auto) 0.4 Baso % (Auto) 0.2 Absolute Neuts (auto) 11.3 H Absolute Lymphs (auto) 0.46 L Nucleated RBC % 0 Differential Comment SEE COMMENT Platelet Estimate ADEQUATE RBC Morphology N CHROM Anisocytosis RARE Sodium 141 Potassium 4.2 Chloride 107 Carbon Dioxide 30.0 Anion Gap 4 L BUN 24 H Creatinine 1.07 H Estim Creat Clear Calc 39.31 Est GFR (MDRD) Af Amer 65 Est GFR (MDRD) Non-Af 54 L BUN/Creatinine Ratio 22.4 H Glucose 157 H Calcium 9.5 Total Bilirubin 0.70 Direct Bilirubin 0.32 H AST 234 H ALT 221 H Alkaline Phosphatase 199 H Troponin I < 0.015 Total Protein 7.7 Albumin 3.9 Globulin 3.8 With elevated AST and ALT ultrasound was obtained to assess the size of the common bile duct and to determine if there is a stone. None was noted. White count is elevated which is nonspecific. Patient was informed the cause of her intermittent abdominal pain is unknown. - EKG Initial EKG Interpretation: Sinus Tachycardia - Sinus tachycardia with ventricular rate of 110. AK interval is 192 ms. QS duration 76 ms. QT duration 306 ms. [place] is normal. There is an ossific ST-T wave changes noted. Will need to review prior EKGs. - Medical Decision Making Differential diagnosis include esophageal spasm, GERD, peptic ulcer disease. Since she is status post cholecystectomy doubt biliary disease. This is not typical of cardiac presentation either. ED Disposition - Plan for ED Patient: Disposition: Home or Assisted Living Diagnosis: Intermittent epigastric abdominal pain, Elevated liver enzymes, Fatty liver disease, nonalcoholic Instructions: ED Epigastric Pain [facility] Referrals: Chevy Matthew DO [Primary Care Provider] - 5-7 Days
[2020-04-05 20:40] LABS: Anion Gap 4 (5-15); BUN 24 mg/dL (7-18); BUN/Creat Ratio 22.4 RATIO (10-20); Calcium,Total 9.5 mg/dL (8.5-10.1); Chloride 107 mmol/L (98-107); Creatinine, Serum 1.07 mg/dL (0.55-1.02); EST Glomerular Filtration Rate 54 mL/min (>60); Est Glom Filt Rate - Afr Amer 65 mL/min (>60); Estimated Creatinine Clearance 39.31 ml/min; Glucose 157 mg/dL (74-106); Potassium 4.2 mmol/L (3.5-5.1); Sodium Level 141 mmol/L (136-145)
[2020-04-05] MEDS: Mag Hydrox/Al Hydrox/Simeth 30 ML UDC PO (20:41)
--- NOTE | 2020-04-05 20:45 | RAD_ITS ---
STUDY: X-RAY CHEST REASON FOR EXAM: Female, 74 years old. upper mid-abdominal pain. vomiting. TECHNIQUE: PA and lateral COMPARISON: 12/23/2019. FINDINGS: There is minor discoid atelectasis or scarring in left lower lobe.. There is no demonstrated pleural abnormality. Normal size heart. Normal mediastinum and kana. Normal visualized pulmonary arteries. Normal visualized aortic arch and descending thoracic aorta. Normal visualized thoracic spine. Normal visualized ribs, clavicles, and shoulders. There is no demonstrated abnormality of the visualized soft tissue structures of the upper abdomen. No significant change since prior exam RAD/Chest PA and Lateral IMPRESSION: Minor discoid atelectasis or scarring in left lower lobe. No acute cardiopulmonary pathology. Electronically Signed: Mateo Perkins MD at 21:28 EST , Service support ,
[2020-04-05 20:49] LABS: AST(SGOT) 234 U/L (15-37); Alanine Aminotransfer ALT/SGPT 221 U/L (13-56); Albumin, Serum 3.9 g/dL (3.2-5.0); Alkaline Phosphatase 199 U/L (45-117); Bilirubin, Direct 0.32 mg/dL (0.00-0.30); Globulin 3.8 g/dL (2.2-4.2); Protein, Total 7.7 g/dL (6.4-8.2)
--- NOTE | 2020-04-05 21:07 | US_ITS ---
STUDY: ABDOMINAL ULTRASOUND - RIGHT UPPER QUADRANT REASON FOR VISIT: Female, 74 years old ABD PAIN/ ELEV LIVER ENZ TECHNIQUE: Ultrasound evaluation of the right upper quadrant was performed with real-time and static michel-scale imaging. TECHNICAL QUALITY: Adequate. COMPARISON: None. FINDINGS: Liver: The liver measures 16.4 cm. There is diffusely increased echogenicity of the liver. The bile ducts are within normal limits. There is hepatic color flow. The direction of portal flow is hepatopetal. There is no demonstrated mass lesion. Gallbladder: Not visualized consistent with cholecystectomy. Common Bile Duct (C.B.D.): The common bile duct measures 7 mm. Pancreas: Normal size of the head, and body of the pancreas. Tail was not well visualized There is normal echogenicity of the pancreas. There is no demonstrated pancreatic mass or cyst. Right Kidney: Normal size of the right kidney. The right kidney measures 10.6 x 4.4 x 4.4 cm. Normal renal cortex. The right cortex measures 1.1 cm. There is no demonstrated renal mass or cyst. There is no right hydronephrosis. US/Abdomen Limited IMPRESSION: Nonspecific enlarged fatty infiltrated liver status post cholecystectomy. Electronically Signed: Mateo Perkins MD at 22:36 EST , Service support ,
[2020-04-05 21:21] LABS: Anisocytosis RARE; Platelet Estimate ADEQUATE (ADEQ); Red Cell Morphology N CHROM NORMAL (NORM C&C)
[2020-04-05 23:05] VITALS: BP 149/62; PULSE 112; RESP 18; O2SAT 95
== END 2020-04-05 23:05 | disposition home or self-care (01) ==
PROVIDERS: Emergency Provider Emergency Medicine; PCP Family Medicine
DX: R10.13 Epigastric pain (principal); K76.0 Fatty (change of) liver, not elsewhere classified; Z90.49 Acquired absence of other specified parts of digestive tract; E78.5 Hyperlipidemia, unspecified; G47.33 Obstructive sleep apnea (adult) (pediatric); I10 Essential (primary) hypertension; I27.20 Pulmonary hypertension, unspecified; Z82.3 Family history of stroke; Z82.49 Family history of ischemic heart disease and other diseases of the circulatory system; Z86.711 Personal history of pulmonary embolism; Z86.718 Personal history of other venous thrombosis and embolism; Z88.1 Allergy status to other antibiotic agents; Z88.2 Allergy status to sulfonamides; M10.9 Gout, unspecified
CPT/HCPCS: 71046; 76705; 80048; 80076; 84484; 85025; 93005; 99285; A4216

== ENCOUNTER → 2020-05-09 09:29 | Outpatient (CLI) | payer MEDICARE, BC, SELFPAY ==
[2020-05-09 10:20] LABS: AST(SGOT) 61 U/L (15-37); Alanine Aminotransfer ALT/SGPT 110 U/L (13-56); Albumin, Serum 3.3 g/dL (3.2-5.0); Alkaline Phosphatase 144 U/L (45-117); Anion Gap 7 (5-15); BUN 26 mg/dL (7-18); BUN/Creat Ratio 28.6 RATIO (10-20); Bilirubin, Direct 0.14 mg/dL (0.00-0.30); Calcium,Total 8.5 mg/dL (8.5-10.1); Chloride 109 mmol/L (98-107); Creatinine, Serum 0.91 mg/dL (0.55-1.02); EST Glomerular Filtration Rate 65 mL/min (>60); Est Glom Filt Rate - Afr Amer 78 mL/min (>60); Globulin 3.6 g/dL (2.2-4.2); Glucose 96 mg/dL (74-106); Potassium 4.3 mmol/L (3.5-5.1); Protein, Total 6.9 g/dL (6.4-8.2); Sodium Level 140 mmol/L (136-145)
[2020-05-09 10:21] LABS: Absolute Lymphocyte Count 1.36 X10^3/uL (0.83-4.51); Absolute Neutrophil Count 5.2 X10^3/uL (2.0-7.7); Basophil# 0.05 X10^3/uL; Basophil% 0.7 % (0-1); Eosinophil# 0.35 X10^3/uL; Eosinophils% 4.6 % (0-5); Hematocrit 36.3 % (37-47); Hemoglobin 10.7 g/dL (12.0-15.0); Lymphocyte # 1.36 X10^3/ul (4.0); Lymphocyte % 17.9 % (19-41); Mean Corp Hgb Conc 29.5 g/dL (32-36); Mean Corpuscular Hgb 24.8 pg (27.0-32.0); Mean Platelet Vol. 9.7 fl (6.2-12.0); Monocyte# 0.62 X10^3/uL; Monocyte% 8.2 % (0-10); NRBC Flagged by Analyzer 0 % (0-5); Neutrophil # 5.19 X10^3/uL (2.7-7.7); Neutrophil % 68.2 % (47-70); Platelet Count 315 K/mm3 (150-450); RBC Distribution Width CV 14.2 % (11.6-14.6); RBC Distribution Width SD 43.8 fl (35.1-43.9); Red Blood Count 4.32 M/mm3 (4.2-5.4); White Blood Count 7.6 K/mm3 (4.4-11.0)
[2020-05-09 10:49] LABS: D-Dimer Quantitative (DVT/PE) 0.58 FEU/ug/m (0.27-0.49)
--- NOTE | 2020-05-09 11:10 | CT_ITS ---
STUDY: CTA CHEST REASON FOR EXAM: Female, 74 years old. SOB SINCE APRIL. HX OF PE RADIATION DOSAGE (If Supplied By Facility): CTDIvol = ( 12.46 ) mGy, DLP = ( 446.34 ) mGycm TECHNIQUE: The examination was performed with the intravenous administration of IV 100mL [id number]-[id number]. Post-processing of the angiographic images was performed, with multiplanar reformation and 3D reconstruction. Individualized dose optimization techniques were used for this CT. COMPARISON: 03/25/2018, 04/15/2018. FINDINGS: Normal enhancement of the main pulmonary artery and right and left pulmonary arteries. Normal enhancement of the bilateral peripheral pulmonary arteries. There is no demonstrated pulmonary embolism. Normal thoracic aorta and visualized great vessels. There is no demonstrated aortic dissection. Normal heart and pericardium. Normal mediastinum. Normal hilar regions. Normal visualized trachea and bronchi. The lungs are well expanded. No infiltrates. Stable scattered foci of fibrosis and scarring in both lungs. No effusions. There are degenerative changes of thoracic spine. Normal visualized upper abdomen. CT/CTA Chest W/WO Contrast IMPRESSION: Normal CTA chest examination, without a demonstrated pulmonary embolism or arterial dissection. Scattered areas of scarring in both lungs are stable. No acute chest disease. Electronically Signed: Sreedhar Zhou MD at 12:31 EST , Service support ,
[2020-05-09 11:27] LABS: Hepatitis C Antibody Non-Reactive (Nonreactive)
== END ==
PROVIDERS: PCP Family Medicine; Referring Provider Family Medicine; Visit Provider Family Medicine
DX: R53.83 Other fatigue (principal); R74.8 Abnormal levels of other serum enzymes; R06.02 Shortness of breath
CPT/HCPCS: 36415; 71275; 80048; 80076; 85025; 85379; 86803; Q9967; A4216

== ENCOUNTER → 2020-08-03 15:26 | Outpatient (CLI) | payer MEDICARE, BC, SELFPAY ==
--- NOTE | 2020-08-03 15:35 | RAD_ITS ---
STUDY: X-RAY CHEST REASON FOR EXAM: Female, 74 years old. Bronchitis, not specified as acute or chronic. Cough. TECHNIQUE: PA and lateral views of the chest. COMPARISON: 04/05/2020 FINDINGS: Stable fibrotic changes of the bilateral lower lobes. No airspace consolidation. There is no demonstrated pleural abnormality. Normal size heart. Normal mediastinum and kana. Normal visualized pulmonary arteries. There is atherosclerotic tortuosity of the aortic arch and descending thoracic aorta. There is demineralization of the osseous structures. Normal visualized ribs, clavicles, and shoulders. There is no demonstrated abnormality of the visualized soft tissue structures of the upper abdomen. RAD/Chest PA and Lateral IMPRESSION: 1. No acute cardiopulmonary process. 2. Stable bibasilar fibrotic changes. Electronically Signed: Zach Barragan MD ([place]) at 15:15 EDT , Service support ,
== END ==
PROVIDERS: PCP Family Medicine; Referring Provider Family Medicine; Visit Provider Family Medicine
DX: J40 Bronchitis, not specified as acute or chronic (principal)
CPT/HCPCS: 71046

== ENCOUNTER → 2020-08-08 10:03 | Outpatient (CLI) | payer MEDICARE, BC, SELFPAY ==
[2020-08-08 08:54] VITALS: BMI 32.2
== END ==
PROVIDERS: PCP Family Medicine; Referring Provider Nurse Practitioner Acute Care; Visit Provider Nurse Practitioner Acute Care
DX: R50.9 Fever, unspecified (principal)
CPT/HCPCS: 36415; 86769

== ENCOUNTER 2020-09-12 08:55 | Day surgery (SDC) | payer MEDICARE, BC, SELFPAY ==
[2020-08-29 10:14] VITALS: BMI 32.8
--- NOTE | 2020-09-08 19:13 | PCM.HP.BLA ---
History and Physical Date of Admission: 09/12/20 HISTORY AND PHYSICAL ? Sharron Cummings 1945 ? REFERRING PHYSICIAN: Chevy Matthew, DO ? CHIEF COMPLAINT: Consult (EGD) ? HPI: The patient is a 74 year old female referred for endoscopy. Sharron notes epigastric pain and was told she had anemia. Laboratory studies not available for review. She states she has been experiencing this ever since her cholecystectomy in June 2019. Describes intermittent intense waves of discomfort at base of sternum, sometimes associated with vomiting and headache. States has been checked for cOVID several times during these episodes and tests have been negative. She does note she was diagnosed with a fatty liver and had elevated liver enzymes. She follows with Dr. Marin in cardiology. She does note history of shortness of breath and leg swelling within the last few months. ? Patient denies any change in bowel habits, weight changes, blood in stools, black tarry stools or abdominal pain. Denies family history of colon issues. ? ? She reports having EGD and colonoscopy at [facility] in 2019. ? ? PAST MEDICAL HISTORY PAST MEDICAL HISTORY Diagnosis Date ? Anemia 05/2020 ? Gout ? ? H/O blood clots 2017 ? History of combined right and left heart catheterization 2019 ? PMH - PAST MEDICAL HISTORY OF ? ? elevated cholesterol ? PMH - PAST MEDICAL HISTORY OF ? ? asthma, as child and teen ? PMH - PAST MEDICAL HISTORY OF 05/18/1976 ? hepatitis ? PMH - PAST MEDICAL HISTORY OF 05/18/1976 ? fractured jaw ? PMH - PAST MEDICAL HISTORY OF 05/18/2008 ? stress test ? PMH - PAST MEDICAL HISTORY OF 05/18/2006 ? back pain ? PMH - PAST MEDICAL HISTORY OF 05/18/2008 ? tendenitis=both forarms. ? Postmenopausal bleeding 04/17/2007 ? Postmenop. bleeding ? Unspecified essential hypertension ? ? Essential hypertension ? ? PAST SURGICAL HISTORY PAST SURGICAL HISTORY Procedure Laterality Date ? CATARACT SURGERY, COMPLEX Right 11/2015 ? COLONOSCOPY GEN ANES ? 2018 ? D&C, DIAG AND/OR THERAPEUTIC ? 1982 ? Dilation & curettage and cauterized a lesion ? LASER SURGERY OF EYE ? 2008 ? right eye ? LIGATE FALLOPIAN TUBE ? 1975 ? PAST SURGICAL HISTORY OF ? 1997, 2008 ? heart cath. ? PAST SURGICAL HISTORY OF ? 2004 ? bilateral bunionectomy ? PAST SURGICAL HISTORY OF ? 2007 ? colonoscopy ? REMOVAL ADENOIDS,PRIMARY,<12 Y/O ? 1953 ? Adenoidectomy ? REMOVAL GALLBLADDER ? 2019 ? REMOVAL OF TONSILS,<12 Y/O ? 1953 ? Tonsillectomy ? SKIN BIOPSY HX ? ? ? 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 ? ? CURRENT MEDICATIONS Current Outpatient Medications Medication Sig ? rOPINIRole (REQUIP) 0.5 mg tablet TAKE 1 TABLET BY MOUTH EVERY DAY IN THE EVENING ? amLODIPine (NORVASC) 5 mg tablet Take 5 mg by mouth once daily. ? azelastine (ASTELIN) 0.1% nasal spray 2 SPRAY INTRANASAL BID ADMINISTER INTO EACH NOSTRIL ? DOCOSAHEXANOIC ACID/EPA (FISH OIL ORAL) Take by mouth. ? omeprazole (PRILOSEC) 20 mg capsule Take 20 mg by mouth once daily. ? metoprolol succinate XL, long acting, 50 mg ORAL 24 hr tablet Take 50 mg by mouth twice daily. ? atorvastatin calcium(LIPITOR 80 MG TAB) one tablet daily ? COMPOUNDED PRESCRIPTION hydroxpropyl methylcellulose drops one drop in each eye once daily ? aspirin(ECOTRIN LOW STRENGTH 81 MG TAB) Take one (1) tablet daily. ? pyridoxine hcl(VITAMIN B-6 100 MG TAB) Take one(1) tablet daily.=dosage is 50 mg. ? venlafaxine ER (EFFEXOR XR) 75 mg 24 hr capsule Take 1 capsule by mouth once daily. (Patient not taking: Reported on 04/30/2020 ) ? indomethacin (INDOCIN) 50 mg capsule Take 50 mg by mouth twice daily with meals. ? niacin 500 mg tablet Take 500 mg by mouth twice daily with meals. ? loratadine (CLARITIN) 10 mg ORAL tablet Take 10 mg by mouth once daily. ? TRIAMTERENE-HYDROCHLOROTHIAZIDE 75 MG-50 MG TAB daily ? ramipril(ALTACE 2.5 MG CAP) one tablet daily ? No current facility-administered medications for this visit. ? ? ALLERGIES: Bactrim [Sulfamethoxazole], Environmental [Other], Evista [Raloxifene Hcl], Imdur [Isosorbide Mononitrate], Indomethacin, Levaquin [Levofloxacin], and Premarin [Conjugated Estrogens] ? PERSONAL HISTORY: SOCIAL HISTORY Social History ? Tobacco Use ? Smoking status: Never Smoker ? Smokeless tobacco: Never Used Substance Use Topics ? Alcohol use: No ? Drug use: No ? FAMILY HISTORY: FAMILY HISTORY FAMILY HISTORY Problem Relation Age of Onset ? Heart Mother ? ? Hypertension Mother ? ? Heart Father ? ? Hypertension Father ? ? Heart Sister ? ? Heart Brother ? ? ? REVIEW OF SYMPTOMS: The review of systems data was entered by the nurse and reviewed by me ? Nursing Notes: Orquidea Sullivan SILVERIO 08/28/2020 3:03 PM Signed REVIEW OF SYSTEMS: General: The patient denies fatigue, denies weight loss, NOTES weight gain, NOTES feeling hot, and denies feelings of cold. Eyes: The patient denies glaucoma, NOTES eye injury/surgery, wears glasses or contacts. Ear/Nose/Throat: The patient NOTES allergies, NOTES hayfever, denies ear infections, and denies bloody noses. Cardiovascular: The patient NOTES chest pain, denies heart disease, NOTES high blood pressure,denies cardiac stent, denies prior heart attack, denies irregular heart beat, NOTES high cholesterol, denies poor circulation, denies heart failure, other cardiac issues, NOTES claudication, denies cold feet, denies peripheral arterial stent. Respiratory: The patient denies tuberculosis, denies pneumonia, NOTES frequent cough, NOTES pulmonary embolism, NOTES shortness of breath, and denies coughing up blood. Gastrointestinal: The patient denies difficulty swallowing, denies acid reflux, denies ulcers, denies vomiting, denies jaundice/hepatitis, NOTES gallbladder problems, denies black or tarry stools, denies hemorrhoids, denies bleeding from rectum, denies diverticulitis, denies constipation, NOTES diarrhea, denies loss of stool control, and NOTES hernias. Kidney/Bladder: The patient denies kidney stones, denies urine infections, and denies bloody urine. Skin: The patient NOTES a history of skin cancer, denies bleeding/changing moles, and denies a history of skin rash. Neurologic: The patient denies a history of epilepsy/convulsions, denies headaches, denies head/spinal injuries, and denies stroke/TIA. Psychiatric: The patient denies psychiatric medications, denies depression, and denies voices, denies substance abuse. Endocrine: The patient denies thyroid disorders, denies diabetes, and denies hormonal problems. Hematologic: The patient denies a history of bruising, denies bleeding, and NOTES anemia, NOTES blood clots. Infections: The patient NOTES a history of measles and mumps, denies rheumatic fever, and denies sexually transmitted diseases. Musculoskeletal: The patient NOTES back pain/injury, NOTES back problems, NOTES sciatica, denies knee/foot trouble, denies arthritis, or denies gout. ? ? When was patient's last Mammogram screening? 05/2020 ? Last Colonoscopy: 2018 ? Karoline Morgan LPN I have confirmed and edited as necessary, the PFSH and ROS obtained by others. ? PHYSICAL EXAMINATION: ? General: The patient is 74 year old female, well nourished, well hydrated in no acute distress. The patient is oriented to time, place, and person. ? VITALS: Blood pressure 136/63, pulse 101, temperature (!) 35.8 ?C (96.5 ?F), height 160 cm (5' 3), weight 84.8 kg (187 lb), SpO2 100 %. Body mass index is 33.13 kg/m?. ? HEENT: Normal cephalic, ataumatic, pupils are equally round, sclera are anicteric, mucous membranes are moist, oropharynx is clear. Neck has no masses, asymmetry or lymphadenopathy. ? Respiratory: Clear to auscultation and percussion. Normal respiratory excursion and pattern. ? Cardiac: Examination is regular rate and rhythm. Normal S1/S2 ? Abdominal exam: Soft, nontender, with no palpable masses. No hepatosplenomegaly. No palpable hernias. ? Extremities: no clubbing, cyanosis or edema. No adenopathy. ? LABORATORY VALUES: As Noted ? RADIOLOGIC STUDIES: As Noted ? ? IMPRESSION: epigastric pain and anemia ? PLAN: I have reviewed my findings with the surgeon. Will plan for upper endoscopy. Patient declines a repeat colonoscopy at this time. We discussed the risks and benefits of the planned endoscopy. I have informed the patient that complications can occur including failure to complete the endoscopy and perforation. The patient had the opportunity to ask questions concerning the planned endoscopy. My staff has also explained the procedure to the patient in understandable terms and has given the patient printed material concerning the procedure. The patient freely consents to surgery. ? The patient was offered a surgery/procedure. I have counseled the patient regarding the risk of exposure to and/or potential harm posed by the COVID-19 virus with having a surgery/procedure at this time versus the risk of? delaying the surgery/procedure. It is not possible to know either the risk of delaying the surgery or procedure or chance of getting an infection with perfect accuracy, but a joint decision was made between the patient and myself?to proceed at this time with endoscopy. ? ?? The patient has medical comorbidities for which we will plan for the procedure to be performed under [facility]. ? ? ? Diagnoses: (Z86.2) History of anemia (primary encounter diagnosis) (R10.13) Epigastric pain (R11.2) Non-intractable vomiting with nausea, unspecified vomiting type ? ? Maria Esther Rolon PA-C
[2020-09-12] VITALS (7 sets, daily range): BP systolic 92–120; BP diastolic 49–58; PULSE 66–73; RESP 16; TEMP 36.1–37.1; O2SAT 92–97; BMI 33.2
--- NOTE | 2020-09-12 | EGD_PTH ---
PATIENT: TORSTEN TORRES LOC: EN U#:[id number] AGE/SX: 74/F ROOM: RE09/12/[address]: Dr. Marbella Abid MD : 1945 BED: DIS: 09/12/2020 SPEC #: [id number] RECD: 09/12/20 12:59 STATUS: NAIMA REKimi #: [id number] KAYLEE: 09/12/20 00:[address]: Marbella Abdi DEPT: SURGICAL PATHOLOGY RECD BY: Aiden Young ENTERED: 09/12/20 13:00 SP TYPE: EGD BIOPSY OT DR: Dr. Chevy Matthew DO Tissues: A - Duodenum, NOS B - Gastric mucous membrane C - Gastric mucous membrane Procedures: Special Stain Group II Surgery Specimen Level IV Alcian Blue/PAS (control) HEADER OPERATION[place] [place] DIAGNOSIS: Epigastric pain and anemia TISSUE SUBMITTED: A - Duodenum biopsy, B - Antrum biopsy for H. pylori and path, C - GE junction biopsy MICROSCOPIC DIAGNOSIS A. Duodenum, biopsy: Mild nonspecific chronic inflammation. Focal gastric metaplasia. B. Gastric antrum, biopsy: Chronic gastritis. See comment. C. Gastroesophageal junction, biopsy: Chronic inflammation. Focal changes of reflux. No evidence of goblet cell metaplasia. See comment. AM:william 09/13/2020 COMMENT B. The results of immunohistochemistry for Helicobacter pylori will be reported separately ([id number]). C. Alcian blue/PAS stain with matched control supports the above diagnosis. MICROSCOPIC DESCRIPTION Slides are reviewed. GROSS DESCRIPTION A - Received in fixative is one container labeled with the patient's name and designated duodenum biopsy. The specimen consists of multiple irregular fragments of light benavides soft tissue that in aggregate measure 1 x 0.2 x 0.1 cm. The specimen is totally submitted in one cassette. B - Received in fixative is one container labeled with the patient's name and designated antrum biopsy. The specimen consists of one irregular fragment of light benavides soft tissue that measures 0.2 x 0.1 x 0.1 cm. The specimen is totally submitted in one cassette. C - Received in fixative is one container labeled with the patient's name and designated GE junction biopsy. The specimen consists of two irregular fragments of light benavides soft tissue that in aggregate measure 0.4 x 0.3 x 0.1 cm. The specimen is totally submitted in one cassette. / SJ:rg 09/12/20 TC:3 CPT: 93317 x3, 23987
[2020-09-12] MEDS: Lactated Ringers 1,000 ML 100 ML IV (09:30)
--- NOTE | 2020-09-12 10:00 | IMM_PTH ---
PATIENT: TORSTEN TORRES LOC: EN U#:[id number] AGE/SX: 74/F ROOM: RE09/12/[address]: Dr. Marbella Abdi MD : 1945 BED: DIS: 09/12/2020 SPEC #: [id number] RECD: 09/12/20 13:35 STATUS: NAIMA REQ #: [id number] KAYLEE: 09/12/20 10:[address]: Marbella Abdi DEPT: IMMUNOHISTOCHEMISTRY RECD BY: Sarita Lawson ENTERED: 09/12/20 13:35 SP TYPE: IMMUNO OTHR DR: Dr. Chevy Matthew DO Tissues: B - Stomach, NOS Procedures: H Pylori (initial) PHYSICIAN & INSTITUTION [place] [id number] SPECIMEN INFORMATION: Tissue Source: B ? Antrum biopsy Clinical Info: Epigastric pain and anemia Specimen Number: [id number] CPT code: 49366 METHODOLOGY: Deparaffinized sections of prefer/formalin-fixed tissue or PAP/DQ stained slides are incubated with monoclonal/polyclonal antibodies/oligonucleotide probes. Localization is made via biotin free immunoperoxidase method. Appropriate controls are performed and reacted as expected. Results on target cell population are indicated in the following table: RESULTS: ANTIBODY / CLONE RESULT Block B H Pylori (polyclonal) negative These tests were developed and their performance characteristics determined by [facility]. They may not have been cleared or approved by the U.S. Food and Drug Administration. The FDA has determined that such clearance or approval is not necessary. INTERPRETATION: B. Antrum biopsy: Negative for Helicobacter pylori organisms. AM:william 09/13/2020
--- NOTE | 2020-09-12 10:22 | OP.CCLET_ITS ---
09/12/2020 Chevy Matthew Re : Upper GI endoscopy procedure for Sharron Cummings Dear Tiff This procedure was performed on Saturday, September 12, 2020. My impressions and recommendations are as follows: Impressions : - Duodenal erosion with bleeding. Biopsied. - Erythematous mucosa in the antrum. Biopsied. - Z-line irregular. Biopsied. Recommendations : - Discharge patient to home (ambulatory). - Resume previous diet. - Continue present medications. - Await pathology results. - Follow up visit via telemedicine with Maria Esther Rolon PA-C to discuss results. Call to set this up, thank you My findings are described in the full procedure note, which is enclosed. If I can be of further assistance, please feel free to contact me at Doctor phone number(s): , Work: . Sincerely, MD Marbella Lainez MD 09/12/2020 10:22:09 AM This report has been signed electronically.
--- NOTE | 2020-09-12 10:22 | OP.EGD_ITS ---
Patient Name: Sharron Cummings Procedure Date: 09/12/2020 9:53 AM Date of : 1945 Age: 74 Procedure: Upper GI endoscopy Indications: Epigastric abdominal pain, Iron deficiency anemia Providers: Marbella Abdi MD Referring MD: Chevy Matthew Medicines: See the Anesthesia note for documentation of the administered medications Patient Profile: Refer to note in patient chart for documentation of history and physical. Complications: No immediate complications. Procedure: Pre-Anesthesia Assessment: - see anesthesia note After obtaining informed consent, the endoscope was passed under direct vision. Throughout the procedure, the patient's blood pressure, pulse, and oxygen saturations were monitored continuously. The Endoscope was introduced through the mouth, and advanced to the second part of duodenum. The upper GI endoscopy was accomplished without difficulty. The patient tolerated the procedure well. Scope In: 10:04:15 AM Scope Out: 10:15:17 AM Total Procedure Duration Time 0 hours 11 minutes 2 seconds Findings: A single localized erosion with bleeding was found in the second portion of the duodenum. Biopsies were taken with a cold forceps for histology. Verification of patient identification for the specimen was done by the [employer] field technician. Estimated blood loss was minimal. Striped mildly erythematous mucosa without bleeding was found in the gastric antrum. Biopsies were taken with a cold forceps for histology. Verification of patient identification for the specimen was done by the [employer] field technician. Estimated blood loss was minimal. The Z-line was irregular. Biopsies were taken with a cold forceps for histology. Verification of patient identification for the specimen was done by the [employer] field technician. Estimated blood loss was minimal. Impression: - Duodenal erosion with bleeding. Biopsied. - Erythematous mucosa in the antrum. Biopsied. - Z-line irregular. Biopsied. Recommendation: - Discharge patient to home (ambulatory). - Resume previous diet. - Continue present medications. - Await pathology results. - Follow up visit via telemedicine with Maria Esther Rolon PA-C to discuss results. Call to set this up, thank you Procedure Code(s): --- Professional --- 64998, Esophagogastroduodenoscopy, flexible, transoral; with biopsy, single or multiple Diagnosis Code(s): --- Professional --- K26.4, Chronic or unspecified duodenal ulcer with hemorrhage K31.89, Other diseases of stomach and duodenum K22.8, Other specified diseases of esophagus R10.13, Epigastric pain D50.9, Iron deficiency anemia, unspecified CPT copyright 2017 [employer]. All rights reserved. The codes documented in this report are preliminary and upon inpatient coder review may be revised to meet current compliance requirements. MD Marbella Lainez MD 09/12/2020 10:22:09 AM This report has been signed electronically. Number of Addenda: 0 Note Initiated On: 09/12/2020 9:53 AM
== END 2020-09-12 11:16 | disposition home or self-care (01) ==
LOC: EN 08:55 → AC 08:56
PROVIDERS: PCP Family Medicine; Referring Provider Family Medicine; Visit Provider Surgery
PROC: 0DJD8ZZ Inspection of Lower Intestinal Tract, Via Natural or Artificial Opening Endoscopic (ICD-10-PCS; CPT 45378; principal; 2020-09-12 09:55)
DX: D50.9 Iron deficiency anemia, unspecified (principal); K26.4 Chronic or unspecified duodenal ulcer with hemorrhage; K76.0 Fatty (change of) liver, not elsewhere classified; K29.50 Unspecified chronic gastritis without bleeding; I10 Essential (primary) hypertension; R11.2 Nausea with vomiting, unspecified; K31.89 Other diseases of stomach and duodenum; E78.00 Pure hypercholesterolemia, unspecified; K22.8 Other specified diseases of esophagus; Z90.49 Acquired absence of other specified parts of digestive tract; Z86.2 Personal history of diseases of the blood and blood-forming organs and certain disorders involving the immune mechanism
CPT/HCPCS: 43239; 88305; 88313; 88342; J7050; J7120; J2405

== ENCOUNTER → 2020-12-11 09:51 | Outpatient (CLI) | payer MEDICARE, BC, SELFPAY ==
[2020-10-11 07:50] VITALS: BMI 32.2
--- NOTE | 2020-12-12 08:00 | PFTCOMP ---
INTRODUCTION: The patient is a 75-year-old female that presents for pulmonary function studies secondary to a diagnosis of shortness of breath. Respiratory therapy reports good patient effort. Bronchodilators were used during testing. INTERPRETATION: Forced expiration spirometry demonstrates no evidence of a large airways obstructive ventilatory defect. There was no significant response to aerosolized bronchodilators. Spirograms are of good quality and plateau normally. Body plethysmography was performed and reveals lung volumes to be within normal limits. Diffusing capacity by single breath CO is mildly reduced at 60% of predicted. IMPRESSION: Isolated mild reduction in diffusing capacity.
== END ==
PROVIDERS: PCP Family Medicine; Referring Provider Nurse Practitioner Acute Care; Visit Provider Nurse Practitioner Acute Care
DX: R06.02 Shortness of breath (principal)
CPT/HCPCS: 94060; 94726; 94729

== ENCOUNTER 2021-07-16 13:21 | Outpatient (CLI) | payer MEDICARE, BC, SELFPAY ==
[2021-07-16 13:50] LABS: Anion Gap 3 (5-15); BUN 18 mg/dL (7-18); BUN/Creat Ratio 17.3 RATIO (10-20); Chloride 111 mmol/L (98-107); Creatinine, Serum 1.04 mg/dL (0.55-1.02); EST Glomerular Filtration Rate 55 mL/min (>60); Est Glom Filt Rate - Afr Amer 67 mL/min (>60); Glucose 115 mg/dL (74-106); Potassium 5.2 mmol/L (3.5-5.1); Sodium Level 141 mmol/L (136-145)
== END 2021-07-16 23:59 | disposition home or self-care (01) ==
LOC: PAVLAB 13:23
PROVIDERS: PCP Family Medicine; Referring Provider Nurse Practitioner Acute Care; Visit Provider Nurse Practitioner Acute Care
DX: I27.20 Pulmonary hypertension, unspecified (principal); R06.02 Shortness of breath
CPT/HCPCS: 36415; 80048; 83880

== ENCOUNTER 2021-07-17 12:59 | Observation (INO) | payer MEDICARE, BC, SELFPAY ==
[2021-07-17] VITALS (13 sets, daily range): BP systolic 131–178; BP diastolic 50–78; PULSE 70–91; RESP 11–20; TEMP 35.8–36.7; O2SAT 95–100; BMI 34.0; BMI 33.1
--- NOTE | 2021-07-17 13:42 | EKG12_ITS ---
Test Reason : DIZZINESS Blood Pressure : / mmHG Vent. Rate : 062 BPM Atrial Rate : 062 BPM P-R Int : 236 ms QRS Dur : 086 ms QT Int : 428 ms P-R-T Axes : 057 043 077 degrees QTc Int : 434 ms Sinus rhythm with 1st degree A-V block Nonspecific T wave abnormality Abnormal ECG Confirmed by VICK SOLIS, ISAAC ([id number]), editor magazine HERB FLEMING ([id number]) on 07/18/2021 2:03:26 PM Referred By: ELÍAS Confirmed By:ROGELIO HICKMAN MD
--- NOTE | 2021-07-17 13:42 | CT_ITS ---
STUDY: CT BRAIN WITHOUT CONTRAST REASON FOR EXAM: Female, 75 years old. One day history of dizziness and headaches. RADIATION DOSAGE (If Supplied By Facility): CTDIvol = ( 44.99 ) mGy, DLP = ( 762.36 ) mGycm TECHNIQUE: Transaxial CT imaging of the brain was performed without administration of intravenous contrast material. Individualized dose optimization techniques were used for this CT. COMPARISON: No relevant priors. FINDINGS: Normal soft tissue structures. Normal calvarium. There is mild cerebral atrophy with widening of the extra-axial spaces and ventricular dilatation. Normal white matter tracts of the cerebral hemispheres. Normal basal ganglia and thalami. Normal brainstem. Normal cerebellum. There is no intracranial hemorrhage. There are no findings of an acute ischemic infarction. Atherosclerotic calcification of the cavernous portions of the internal carotid arteries bilaterally. Normal visualized paranasal sinuses. CT/Brain/Head without Contrast IMPRESSION: Chronic involutional changes of the brain. Electronically Signed: Kerwin Joe MD at 14:46 EST ,
--- NOTE | 2021-07-17 13:44 | EDS_ITS ---
HPI History of Present Illness Chief Complaint: Dizziness Informant: patient and spouse/S.O. Narrative Narrative: Patient presents with dizziness nausea and vomiting. She states it started yesterday about 3 PM. If she moves much or gets up and tries to walk she gets more dizzy and then will vomit. She thinks it turning to the left a little bit worse than turning to the right. However, when she walks she states she tends to lean a little bit to the right side. She has not noted any numbness tingling or lateralizing weakness. No facial changes. No change in speech. She did have an episode this morning where her vision seemed to be double. It sounds like she was looking at a clock and the clock had an upper left and a slightly lowered to the right image. That has now fully resolved. She also has a little bit of perioral tingling. No other areas of tingling. She has never had any of the symptoms before. No trauma. She had a blood clot in the past in the left leg 3 or 4 years ago and was on Eliquis but has been off that for multiple years. She has blood pressure and cholesterol but no history of heart disease or strokes. [facility] Medical History Asthma Back pain Broken jaw DVT (deep venous thrombosis) Edema Gout Hepatitis B Hyperlipidemia Hypertension Post-menopausal Restless legs Retinal tear Sleep apnea Home Medications aspirin 81 mg PO DAILY 09/07/17 [History Last Taken 06/16/19] atorvastatin 80 mg PO QHS 09/07/17 [History Last Taken 06/16/19] metoprolol tartrate 50 mg PO BID 09/07/17 [History Last Taken 09/12/20 08:00] amlodipine 5 mg PO DAILY #30 tab 03/26/18 [Rx Last Taken 09/12/20 08:00] nitroglycerin 0.3 mg sublingual tablet 0.3 mg SL Q5M PRN 08/29/20 [History Last Taken Unknown] omega-3 fatty acids 1,000 mg capsule 1,000 mg PO DAILY 08/29/20 [History Last Taken Unknown] omeprazole 20 mg capsule,delayed release 20 mg PO DAILY 08/29/20 [History Last Taken 09/12/20 08:00] albuterol sulfate 90 mcg/actuation aerosol inhaler 2 puff INHALATION Q4H PRN #8.5 gm 01/14/21 [Rx Last Taken Unknown] furosemide 20 mg tablet 20 mg PO DAILY #3 tab 07/16/21 [Rx Last Taken Unknown] fluticasone propion-salmeterol [Wixela Inhub] 1 inh INHALATION BID 07/17/21 [History Last Taken Unknown] Allergy/AdvReac Type Severity Reaction Status Date / Time sulfamethoxazole Allergy Severe Anaphylaxis Verified 07/17/21 13:03 [From Bactrim] estrogens, conjugated AdvReac Other htn Verified 07/17/21 13:03 [From Premarin] isosorbide [From Imdur] AdvReac Other, Verified 07/17/21 13:03 severe headache and vomitting levofloxacin [From Levaquin] AdvReac Other Verified 07/17/21 13:03 bilateral tendonitis raloxifene [From Evista] AdvReac Other- HTN Verified 07/17/21 13:03 solifenacin [From Vesicare] AdvReac Other Verified 07/17/21 13:03 trimethoprim [From Bactrim] AdvReac Other Verified 07/17/21 13:03 Family History Brother Hx of heart bypass surgery Heart disease CVA (cerebral vascular accident) Cancer skin Mother Hx of heart bypass surgery Heart disease Hypertension Father Hx of heart bypass surgery Heart disease Hypertension Sister Hx of heart bypass surgery Surgical History H/O adenoidectomy H/O bilateral cataract extraction History of bunionectomy History of cardiac catheterization History of dilation and curettage History of left heart catheterization History of tonsillectomy History of tubal ligation S/P laparoscopic cholecystectomy (~07/07/19) skin cancer removed Social History household members: spouse housing: house current occupational status: retired pets and animals: Yes pets and animals: cat(s) Smoking Status: Never smoker second hand exposure: No alcohol intake: never substance use type: does not use ROS ROS ED Constitutional Constitutional ED: Denies fever(s) Eyes Eyes: Reports change in vision and diplopia; Denies blurry vision ENT ENT ED: Denies ear pain or rhinorrhea Cardiovascular Cardiovascular: Denies chest pain or palpitations Respiratory/Chest Respiratory/Chest: Denies cough or dyspnea Gastrointestinal Gastrointestinal: Reports nausea and vomiting; Denies abdominal pain or diarrhea Genitourinary Genitourinary ED: Denies dysuria Musculoskeletal Musculoskeletal: Denies myalgias Integumentary Denies rash Neurologic Neurologic: Denies headache(s), paresthesias or weakness Psychiatric Psychiatric: Denies anxiety or depression Allergic/Immunologic Allergic/Immunologic ED: Denies urticaria EXAM Physical Exam Const Vital Signs: 07/17/21 13:00 07/17/21 13:11 07/17/21 15:00 Temperature 96.4 F L Temperature Source Temporal Pulse Rate 83 70 Respiratory Rate 18 11 L Respiratory Effort Normal Non-Labored Respiratory Pattern Normal Blood Pressure 172/69 H 131/50 H Blood Pressure Mean 103 77 Pulse Ox 95 98 Oxygen Delivery Method Room Air Room Air Positive well nourished and well developed General Appearance ED: well developed and NAD; Negative for cyanotic or diaphoretic HEENT Reports moist mucous membranes HEENT Narrative: No facial asymmetry seen. Normal smile. Eyes Eyes Narrative: Range of motion of the eyes is normal. When she looks to the left I thought I saw a little bit of nystagmus. But it was very subtle and horizontal. I do not see any weakness or limitation of motion. General Eye ED: Negative for pale conjunctiva or scleral icterus Neck no JVD Chest Wall Negative for inspection of chest normal Resp normal respiratory effort and clear to auscultation bilaterally Effort and Inspection: Negative for pain with movement Auscultation: Negative for rales, rhonchi or wheezes Cardio regular rate and regular rhythm Rhythm: Negative for abnormal rhythm GI normal to inspection, nondistended, normoactive bowel sounds and non-tender Palpation: soft Back/Spine no CVA tenderness Extremity normal to inspection Neuro oriented x3, CN's II-XII intact bilaterally and no sensory deficits noted Neuro Narrative: Patient has an NIH of 0. Coordination strength sensation everything is normal. Sensorium / Orientation: alert Motor Exam: strength 5/5 throughout Psych mental status grossly normal Skin no rashes or lesions noted MDM MDM MDM Narrative Medical decision making narrative: Blood work showed normal CBC. Platelets are normal. Electrolytes are unremarkable. Glucose is minimally elevated 122. Alk phos is 160 but remainder of LFTs are normal. CT of her head showed chronic changes. We had SOC also see her. This does sound like benign positional vertigo. I did do Brijesh maneuver that did not create any significant change. She also got meclizine that did not really help a lot. However, the concern is that the patient occasionally gets diplopia. She had an episode this morning. When I did the Brijesh maneuver and turned her on her right side, she saw to everything in front of her. It lasted for about 30 seconds and then improved. But she states that she was not really vertiginous at that moment. I could not see any abnormality of ocular motion at that time. However, with her risk factors, age, vertigo with the diplopia neurology/SOC did recommend further admission and evaluation. We have added a CTA of head neck which is pending. These are not likely to show a large vessel cutoff based on her symptoms. Her symptoms would also not justify thrombolysis. Lab Data Attestation: I reviewed the patient's lab results. Labs: Laboratory Results - last 24 hr 07/17/21 07/17/21 13:15 13:15 WBC 8.9 RBC 5.16 Hgb 13.8 Hct 43.0 MCV 83.3 MCH 26.7 L MCHC 32.1 RDW Std Deviation 47.4 H RDW Coeff of Justin 15.6 H Plt Count 337 MPV 9.5 Immature Gran % (Auto) 0.900 Neut % (Auto) 76.0 H Lymph % (Auto) 17.0 L [place] % (Auto) 5.0 Eos % (Auto) 0.5 Baso % (Auto) 0.6 Absolute Neuts (auto) 6.8 Absolute Lymphs (auto) 1.51 Nucleated RBC % 0 Sodium 141 Potassium 3.9 Chloride 107 Carbon Dioxide 27.0 Anion Gap 7 BUN 15 Creatinine 0.84 Estim Creat Clear Calc 47.18 Est GFR (MDRD) Af Amer 86 Est GFR (MDRD) Non-Af 71 BUN/Creatinine Ratio 17.9 Glucose 122 H Calcium 9.3 Total Bilirubin 0.80 AST 25 ALT 33 Alkaline Phosphatase 160 H Total Protein 7.9 Albumin 3.7 Globulin 4.2 Albumin/Globulin Ratio 0.9 Radiography Diagnostic Testing: Clinical Impression(s) from Imaging Studies Brain CT 07/17/21 13:42 IMPRESSION: Chronic involutional changes of the brain. Electronically Signed: Kerwin Joe MD at 14:46 EST , Discharge Plan Dx/Rx/DC Orders Clinical Impression: Vertigo, Diplopia Disposition Disposition: Acute Care Hospital [facility]
--- NOTE | 2021-07-17 13:52 | TELEMED_ITS ---
SOC Telemed has confirmed receipt of a request for visit. This document confirms receipt of the order initiating the consult. To find the results of the consultation, please view the patient's reports for the scanned Telemed Consult.
[2021-07-17 14:02] LABS: Absolute Lymphocyte Count 1.51 X10^3/uL (0.83-4.51); Absolute Neutrophil Count 6.8 X10^3/uL (2.0-7.7); Basophil# 0.05 X10^3/uL; Basophil% 0.6 % (0-1); Eosinophil# 0.04 X10^3/uL; Eosinophils% 0.5 % (0-5); Hemoglobin 13.8 g/dL (12.0-15.0); Lymphocyte # 1.51 X10^3/ul (0.83-4.51); Mean Corp Hgb Conc 32.1 g/dL (32-36); Mean Corpuscular Hgb 26.7 pg (27.0-32.0); Mean Corpuscular Volume 83.3 fL (81-99); Mean Platelet Vol. 9.5 fl (6.2-12.0); Monocyte# 0.44 X10^3/uL; NRBC Flagged by Analyzer 0 % (0-5); Neutrophil # 6.75 X10^3/uL (2.7-7.7); Platelet Count 337 K/mm3 (150-450); RBC Distribution Width CV 15.6 % (11.6-14.6); RBC Distribution Width SD 47.4 fl (35.1-43.9); Red Blood Count 5.16 M/mm3 (4.2-5.4); White Blood Count 8.9 K/mm3 (4.4-11.0)
[2021-07-17 14:16] LABS: ALB/GLOB Ratio 0.9 RATIO (0.9-2.4); AST(SGOT) 25 U/L (15-37); Alanine Aminotransfer ALT/SGPT 33 U/L (13-56); Albumin, Serum 3.7 g/dL (3.2-5.0); Alkaline Phosphatase 160 U/L (45-117); Anion Gap 7 (5-15); BUN 15 mg/dL (7-18); BUN/Creat Ratio 17.9 RATIO (10-20); Calcium,Total 9.3 mg/dL (8.5-10.1); Chloride 107 mmol/L (98-107); Creatinine, Serum 0.84 mg/dL (0.55-1.02); EST Glomerular Filtration Rate 71 mL/min (>60); Est Glom Filt Rate - Afr Amer 86 mL/min (>60); Estimated Creatinine Clearance 47.18 ml/min; Globulin 4.2 g/dL (2.2-4.2); Glucose 122 mg/dL (74-106); Potassium 3.9 mmol/L (3.5-5.1); Protein, Total 7.9 g/dL (6.4-8.2); Sodium Level 141 mmol/L (136-145)
[2021-07-17] MEDS: Ondansetron 4 MG/2 ML Vial IV (14:33)
[2021-07-17] MEDS: Meclizine HCl 25 MG Tablet PO (14:33)
--- NOTE | 2021-07-17 16:00 | CT_ITS ---
We are attempting to reach an attending provider to discuss findings. An addendum with communication details will be sent when the communication is complete. STUDY: CTA HEAD AND NECK WITH CONTRAST REASON FOR EXAM: Female, 75 years old. Neuro deficit, acute, stroke suspected RADIATION DOSAGE (If Supplied By Facility): CTDIvol = ( 19.88 ) mGy, DLP = ( 725.65 ) mGycm TECHNIQUE: CT angiography was performed with a multi-detector CT scanner. Data acquisition was obtained from the skull base through the vertex following intravenous administration of IV 100mL Isovue-370. MIP images were reconstructed from the axial data set. Post-processing of the angiographic images was performed, with multiplanar reformation and 3D reconstruction. Individualized dose optimization techniques were used for this CT. COMPARISON: No relevant priors. FINDINGS: Normal bilateral petrous carotid arteries. There is calcified plaque formation of the right cavernous carotid artery, without a cross-sectional luminal stenosis. There is calcified plaque formation of the left cavernous carotid artery, without a cross-sectional luminal stenosis. Normal right A1 segments of the anterior cerebral artery. Normal left A1 segments of the anterior cerebral artery. Normal intact anterior communicating artery (ACOM). Normal bilateral A2 segments of the anterior cerebral arteries. Normal right M1 and M2 segments of the middle cerebral arteries, with a normal M1 bifurcation. Normal left M1 and M2 segments of the middle cerebral arteries, with a normal M1 bifurcation. Normal right posterior communicating artery (PCOM). Normal left posterior communicating artery (PCOM). There is a small atretic right vertebral artery with a dominant left vertebral artery. Normal basilar artery with a normal basilar bifurcation. The visualized bilateral superior cerebellar (SCA) arteries are normal. Normal bilateral P1, P2 and visualized P3 segments of the posterior cerebral arteries. There is no demonstrated aneurysm of the picayune of Dyson. There is no demonstrated abnormality of the visualized brain. AORTIC ARCH: There is a bovine origin of the great vessels arising from the aortic arch with a common origin of the brachiocephalic and left common carotid artery. Normal origin of the left subclavian artery. Normal origins of the brachiocephalic, left common carotid, and left subclavian arteries. RIGHT CAROTID ARTERIES: Normal right common carotid artery (CCA). There is moderate atherosclerotic plaque formation with moderate narrowing of the right carotid bulb. There is moderate atherosclerotic plaque formation of the origin of the right internal carotid artery with an estimated stenosis of 50-69% stenosis. Normal visualized cervical portion of the right internal carotid artery. Normal origin of the right external carotid artery (ECA). LEFT CAROTID ARTERIES: Normal left common carotid artery (CCA). There is mild atherosclerotic plaque formation with minimal narrowing of the left carotid bulb. Normal origin of the left internal carotid (ICA) artery without a hemodynamically significant stenosis. Normal visualized cervical portion of the left internal carotid artery. Normal origin of the left external carotid artery (ECA). VERTEBRAL ARTERIES: Normal bilateral vertebral arteries. CT/STROKE CTA Head AND Neck W/Con IMPRESSION: 1. Normal CTA Head with contrast. 2. Bovine arch. 3. Moderate (60%) stenosis right carotid stenosis. 4. No left carotid stenosis. 5. Hypoplastic right vertebral artery which terminates as the right posterior inferior cerebellar artery. Widely patent dominant left vertebral artery. Electronically Signed: Merlin Paredes MD at 16:35 EST ,
--- NOTE | 2021-07-17 16:13 | NURSING ---
PCU OBS KIT VERTIGO, DIPLOPIA, ? POSTERIOR CIRCULATION CVA
--- NOTE | 2021-07-17 16:34 | HP.PCM.HOS_ITS ---
HPI - General General Date of Admission: 07/17/21 Date of Service: 07/17/21 Chief Complaint: Dizziness HPI Narrative TORSTEN TORRES, is a 75 F who presents presents with dizziness that began around 1500 on the first. Worse with movement. Today, patient was having vomiting and nausea. Presented to the emergency room and when he had her gazing to her right while lying on her right side she saw double of the same wall plug. SOC telemetry neurology was consulted and given the diplopia given it was thought that this is likely benign paroxysmal positional vertigo they felt it best to have the patient get an MRI to rule out a CVA. Patient has never had vertigo nor stroke before. Overall, the patient is feeling better at this time but she is not moving. [facility] Medical History Asthma Back pain Broken jaw DVT (deep venous thrombosis) Edema Gout Hepatitis B Hyperlipidemia Hypertension Post-menopausal Restless legs Retinal tear Sleep apnea Home Medications aspirin 81 mg PO DAILY 09/07/17 [History Last Taken 06/16/19] atorvastatin 80 mg PO QHS 09/07/17 [History Last Taken 06/16/19] metoprolol tartrate 50 mg PO BID 09/07/17 [History Last Taken 09/12/20 08:00] amlodipine 5 mg PO DAILY #30 tab 03/26/18 [Rx Last Taken 09/12/20 08:00] nitroglycerin 0.3 mg sublingual tablet 0.3 mg SL Q5M PRN 08/29/20 [History Last Taken Unknown] omega-3 fatty acids 1,000 mg capsule 1,000 mg PO DAILY 08/29/20 [History Last Taken Unknown] omeprazole 20 mg capsule,delayed release 20 mg PO DAILY 08/29/20 [History Last Taken 09/12/20 08:00] albuterol sulfate 90 mcg/actuation aerosol inhaler 2 puff INHALATION Q4H PRN #8.5 gm 01/14/21 [Rx Last Taken Unknown] furosemide 20 mg tablet 20 mg PO DAILY #3 tab 07/16/21 [Rx Last Taken Unknown] fluticasone propion-salmeterol [Wixela Inhub] 1 inh INHALATION BID 07/17/21 [History Last Taken Unknown] Allergy/AdvReac Type Severity Reaction Status Date / Time sulfamethoxazole Allergy Severe Anaphylaxis Verified 07/17/21 13:03 [From Bactrim] estrogens, conjugated AdvReac Other htn Verified 07/17/21 13:03 [From Premarin] isosorbide [From Imdur] AdvReac Other, Verified 07/17/21 13:03 severe headache and vomitting levofloxacin [From Levaquin] AdvReac Other Verified 07/17/21 13:03 bilateral tendonitis raloxifene [From Evista] AdvReac Other- HTN Verified 07/17/21 13:03 solifenacin [From Vesicare] AdvReac Other Verified 07/17/21 13:03 trimethoprim [From Bactrim] AdvReac Other Verified 07/17/21 13:03 Family History Brother Hx of heart bypass surgery Heart disease CVA (cerebral vascular accident) Cancer skin Mother Hx of heart bypass surgery Heart disease Hypertension Father Hx of heart bypass surgery Heart disease Hypertension Sister Hx of heart bypass surgery Surgical History H/O adenoidectomy H/O bilateral cataract extraction History of bunionectomy History of cardiac catheterization History of dilation and curettage History of left heart catheterization History of tonsillectomy History of tubal ligation S/P laparoscopic cholecystectomy (~07/07/19) skin cancer removed Social History household members: spouse housing: house current occupational status: retired pets and animals: Yes pets and animals: cat(s) Smoking Status: Never smoker second hand exposure: No alcohol intake: never substance use type: does not use ROS ROS Narrative All review of systems were negative except as mentioned above in the history of present illness and the other review of systems. Vital Signs Vital Signs Vital Signs: 07/17/21 13:00 07/17/21 13:11 07/17/21 15:00 Temperature 35.8 C L Temperature Source Temporal Pulse Rate 83 70 Respiratory Rate 18 11 L Respiratory Effort Normal Non-Labored Respiratory Pattern Normal Blood Pressure 172/69 H 131/50 H Blood Pressure Mean 103 77 Pulse Ox 95 98 Oxygen Delivery Method Room Air Room Air Weight Weight: 84.368 kg Body Mass Index (BMI) 34.0 Physical Exam Const alert General Appearance: cooperative HEENT normocephalic, head/scalp atraumatic, hearing grossly normal bilaterally and moist oral mucous membranes Eyes EOMs intact bilaterally and conjunctivae normal Eyes Narrative: No nystagmus Neck no lymphadenopathy Neck Narrative: No thyromegaly Resp normal respiratory effort, no retractions, no use of accessory muscles and clear to auscultation bilaterally Cardio regular rate, regular rhythm, S1 normal heart sound and S2 normal heart sound GI normal to inspection, nondistended, normoactive bowel sounds, soft to palpation, non-tender and non-distended Extremity normal to inspection Neuro oriented x3 Sensorium / Orientation: awake and alert Psych affect normal Results Lab / Micro Data Attestation: I reviewed the patient's lab results. Result Diagrams: 07/17/21 13:15 07/17/21 13:15 Labs: Laboratory Results - last 24 hr 07/17/21 13:15: WBC 8.9, RBC 5.16, Hgb 13.8, Hct 43.0, MCV 83.3, MCH 26.7 L, MCHC 32.1, RDW Std Deviation 47.4 H, RDW Coeff of Justin 15.6 H, Plt Count 337, MPV 9.5, Immature Gran % (Auto) 0.900, Neut % (Auto) 76.0 H, Lymph % (Auto) 17.0 L, [place] % (Auto) 5.0, Eos % (Auto) 0.5, Baso % (Auto) 0.6, Absolute Neuts (auto) 6.8, Absolute Lymphs (auto) 1.51, Nucleated RBC % 0 07/17/21 13:15: Sodium 141, Potassium 3.9, Chloride 107, Carbon Dioxide 27.0, Anion Gap 7, BUN 15, Creatinine 0.84, Estim Creat Clear Calc 47.18, Est GFR (MDRD) Af Amer 86, Est GFR (MDRD) Non-Af 71, BUN/Creatinine Ratio 17.9, Glucose 122 H, Calcium 9.3, Total Bilirubin 0.80, AST 25, ALT 33, Alkaline Phosphatase 160 H, Total Protein 7.9, Albumin 3.7, Globulin 4.2, Albumin/Globulin Ratio 0.9 EKG Initial EKG: Attestation: I personally reviewed and interpreted this EKG as follows: Prior EKG tracings: available for review EKG Rhythm Intrepretation: Sinus Rhythm Radiology Impression Brain CT 07/17/21 13:42 IMPRESSION: Chronic involutional changes of the brain. Electronically Signed: Kerwin Joe MD at 14:46 EST , Assessment & Plan Assessment/Plan (1) Vertigo: (2) Diplopia: PLAN: 1. Vertigo Suspect benign paroxysmal positional vertigo rather than a posterior stroke As needed meclizine Given the low likelihood of this being a stroke ongoing going to order an MRI of the brain, however that does show stroke then would recommend completing the stroke work-up with an MRI of the head neck and 2D echocardiogram 2. Diplopia Was transient and only while the patient was lying on her side looking towards the right. She states that she was having some fluttering in her visual field. Suspect patient was having some nystagmus that may have been contributing to the transient diplopia but she is not experiencing any further diplopia. But given the diplopia and her vertigo its best to rule out a stroke and stroke work-up as above. 3. VTE prophylaxis: Not indicated as patient the observation status 4. CODE STATUS: Patient wishes to be full code 5. COVID-19 vaccination status: Patient is vaccinated for COVID-19. Charges/Coding Visit Charges OBSV E&M: 49560 Initial observation care L3
--- NOTE | 2021-07-17 16:57 | MRI_ITS ---
We are attempting to reach an attending provider to discuss findings. An addendum with communication details will be sent when the communication is complete. INDICATION: vertigo. EXAMINATION: MRI - MR Brain W/O Contrast TECHNIQUE: Multiplanar and multisequence MR images of the brain were obtained without administration of intravenous contrast. IV Contrast Dosage and Agent: None. COMPARISON: None. FINDINGS: HEMISPHERES, CEREBELLUM AND BRAINSTEM: 1. The cerebral parenchyma, ventricular system, subarachnoid spaces have normal configuration and density. There is a normal gyral pattern. There is normal michel/white differentiation. No midline shift.. 2. Minimal involutional changes and chronic microvascular deep white matter changes are present. 3. No mass or hemorrhage noted. 4. The cerebellum, brainstem, basilar and suprasellar cisterns have normal configuration. There is however an area of fluid restriction consistent with acute nonhemorrhagic ischemia within the LEFT paramedian sudheer, measuring approximately 13 x 7 mm in size. 5. No Chiari malformation. 6. No other evidence of mass, hemorrhage, or acute territorial infarct. PITUITARY: Infundibulum and pituitary have normal configuration. Midline structures appear normal. CSF SPACES: Appropriate for age. No hydrocephalus. Basal cisterns are patent. VESSELS: 1. There are normal flow voids noted in the great vessels at the skull base there is note of a dominant LEFT vertebral artery small caliber RIGHT vertebral artery. Normal flow voids present within the visualized basilar artery. ORBITS AND PARANASAL SINUSES: 1. Both globes, extraocular muscles, optic nerves and retrobulbar fat appear unremarkable. 2. Chronic appearing mucosal thickening in the ethmoid complexes, remaining paranasal sinuses are clear. BONY ELEMENTS: Bony elements of the cranial vault, facial skeleton and skull base have normal appearance. SCALP AND SOFT TISSUES: Normal appearance of the soft tissues of the scalp and the visualized face OTHER: None MRI/Brain without Contrast IMPRESSION: 1. Mild involutional changes, mild chronic microvascular deep white matter disease. 2. Focal area of LEFT paramedian pontine acute nonhemorrhagic infarct measuring approximately 13 x 7 mm in size. 3. No other evidence mass, hemorrhage, or acute territorial infarct. Electronically Signed: Merlin Nicholson MD at 21:46 EST ,
[2021-07-17 17:25] LABS: Troponin-I HS 10 pg/mL (3.0-54.0)
[2021-07-17] MEDS: Budesonide Respules 0.5 MG/2 ML AMPUL.NEB. INHALATION (19:55)
[2021-07-17] MEDS: Albuterol 2.5 MG/3 ML VIAL.NEB. INHALATION (19:55)
[2021-07-17] MEDS: Metoprolol Tartrate 50 MG Tablet PO (22:14)
[2021-07-17] MEDS: Atorvastatin Calcium 80 MG Tablet PO (22:15)
[2021-07-18] VITALS (13 sets, daily range): BP systolic 125–145; BP diastolic 51–76; PULSE 38–94; RESP 14–18; TEMP 36.8–37.1; O2SAT 92–96; BMI 33.1
[2021-07-18 06:22] LABS: Cholesterol 112 mg/dL (200); High Density Lipoprotein 39 mg/dL; Triglycerides 122 mg/dL; Very Low Density Lipoprotein 24 mg/dL (5-40)
[2021-07-18] MEDS: Budesonide Respules 0.5 MG/2 ML AMPUL.NEB. INHALATION (07:06)
[2021-07-18] MEDS: Albuterol 2.5 MG/3 ML VIAL.NEB. INHALATION ×2 (07:07→13:04)
[2021-07-18] MEDS: Omega-3 Acid Ethyl Esters 1 GM Capsule PO (08:33)
[2021-07-18] MEDS: Pantoprazole Sodium 20 MG Tablet PO (08:34)
[2021-07-18] MEDS: Metoprolol Tartrate 50 MG Tablet PO (08:34)
[2021-07-18] MEDS: amLODIPine 5 MG Tablet PO (08:34)
[2021-07-18] MEDS: Aspirin E.C. 81 MG Tablet PO (08:34)
[2021-07-18] MEDS: Furosemide 20 MG Tablet PO (08:34)
--- NOTE | 2021-07-18 13:35 | CASEMGMT ---
Social Work Pt presenting with a stroke. SW met with pt and completed PHQ9. Pt score of 0 indicating no depression. [facility]
--- NOTE | 2021-07-18 13:48 | ECHOD_ITS ---
Reason For Study: TIA/CVA Procedure This was a 2D Doppler, Color Flow transthoracic echocardiogram. Exam performed portable in patient room. Left Ventricle Normal LV size. The estimated ejection fraction is 70 %. No evidence for diastolic dysfunction. No regional wall motion abnormalities noted. Right Ventricle Normal RV size. Normal systolic function. Atria Normal left atrium. Normal right atrium. Bubble contrast study negative for right to left interatrial shunt. No doppler evidence for ASD. Mitral Valve There is moderate mitral annular calcification. There is no mitral valve stenosis. Mild (1+) mitral valve insufficiency. Tricuspid Valve There is no tricuspid stenosis. Mild tricuspid valve insufficiency. Pulmonary artery systolic pressure is 35 mmHg. Aortic Valve Trisinus/trileaflet aortic valve. There is no aortic stenosis. No aortic valve insufficiency. Pulmonic Valve There is no pulmonic valvular stenosis. Trivial pulmonic valve insufficiency. Great Vessels Normal aortic root. Pericardium/Pleural No pericardial effusion. Medication Performed a rapid injection of agitated mix of 9 cc saline and 1cc air to assess for atrial septal defect. MMode/2D Measurements & Calculations LVIDd: 4.6 cm IVSd: 1.3 cm Ao root diam: 3.0 cm LVIDs: 3.2 cm LVPWd: 1.2 cm RVDd: 3.0 cm FS: 30.9 % LAV(MOD-bp): 52.7 ml LA A4 area: 19.7 cm2 LA dimension(2D): 4.0 cm LAV(MOD-bp) Indexed: 28.8 ml/m2 LAV(MOD-sp2): 46.7 ml LAV(MOD-sp4): 53.4 ml RA A4 area: 17.9 cm2 Doppler Measurements & Calculations MV E max hang: 90.7 cm/sec Lat Peak E' Hang: 7.3 cm/sec Med Peak E' Hang: 6.1 cm/sec MV A max hang: 116.6 cm/sec E/E' lat: 12.4 E/E' med: 14.9 MV E/A: 0.78 Ao V2 max: 129.5 cm/sec LV V1 max: 92.5 cm/sec PA V2 max: 105.6 cm/sec Ao max P.7 mmHg LV V1 max P.4 mmHg TR max hang: 275.0 cm/sec TR max P.2 mmHg ECHO/Echo Complete Interpretation Summary The estimated ejection fraction is 70 %. No evidence for diastolic dysfunction. Mild (1+) mitral valve insufficiency. Ordering Physician: Damien Benedict Referring Physician: Chevy Matthew Performed By: Kianna Capone, CASE, RVT
--- NOTE | 2021-07-18 13:59 | CHAPLAIN ---
Type of Pastoral Visit ___ Initial Visit ___ Follow-up Visit ___ On-call Visit ___ General Patient Visit ___ Spiritual Assessment ___ Family Conference ___ Bereavement ___ Rapid Response ___ Code Blue ___ Other (describe below) Pastoral Care Referral From ___ Patient ___ Family ___ Nurse ___ Physician ___ Technology Coordinator ___ Salon Supervisor ___ Other (describe below) Sacrament/Intervention ___ Active listening ___ Anointing ___ Jain ___ Bereavement ___ Communion ___ Isamar exploration ___ ___ Life review ___ Prayer ___ Reconciliation ___ Sacrament of Sick ___ Supportive presence ___ Wedding ___ Other (describe below) Pastoral Comments three attempts made to visit patient; each attempt someone else was in the room for care - RT, ASHLY, and
--- NOTE | 2021-07-18 14:07 | CASEMGMT ---
This RN CM to room to discuss d/c plan and pt states no concerns with going home. Pt states her sx's are improving. Pt states no need for any further therapy at discharge. Pt's NIH is 0. S[place]en ANTWON CM
--- NOTE | 2021-07-18 16:21 | PCM.DC ---
Discharge Instructions Diet Discharge Diet: No restrictions Activity Discharge Activity: Return to Normal Activity and May Not Drive (would not drive for two weeks) Weight Bearing Status: Full weight bearing Follow Up Care Test Results: Test results from this visit will be discussed in further detail at your follow-up appointment, if applicable. Discharge Plan Admission Admit Date/Time: 07/17/21 16:25 Primary Reason for Your Visit: acute pontine stroke Attending Provider: Damien Benedict Primary Care Provider: Chevy Matthew Discharge Orders/Prescriptions Prescriptions: New furosemide [Lasix] 20 mg tablet 20 mg PO DAILY Qty: 30 RF: 0 clopidogrel [Plavix] 75 mg tablet 75 mg PO DAILY Qty: 30 RF: 0 Continued omega-3 fatty acids [Fish Oil Concentrate] 1,000 mg capsule 1,000 mg PO DAILY RF: 0 nitroglycerin 0.3 mg tablet, sublingual 0.3 mg SL Q5M PRN (Reason: Chest Pain) RF: 0 omeprazole 20 mg capsule,delayed release(DR/EC) 20 mg PO DAILY RF: 0 albuterol sulfate 90 mcg/actuation HFA aerosol inhaler 2 puff INHALATION Q4H PRN (Reason: shortness of breath or wheezing) Qty: 8.5 RF: 6 atorvastatin 80 MG tablet 80 mg PO QHS RF: 0 aspirin 81 MG tablet,delayed release (DR/EC) 81 mg PO DAILY RF: 0 metoprolol tartrate 50 MG tablet 50 mg PO BID RF: 0 amlodipine 5 MG tablet 5 mg PO DAILY Qty: 30 RF: 0 fluticasone propion-salmeterol [Wixela Inhub] 500-50 mcg/dose blister with device 1 inh INHALATION BID RF: 0 calcium carbonate 500 mg calcium (1,250 mg) Tablet 1,000 mg PO DAILY RF: 0 cholecalciferol (vitamin D3) 25 mcg (1,000 unit) Capsule 25 mcg PO DAILY RF: 0 furosemide 20 mg tablet 20 mg PO DAILY Qty: 3 RF: 0 Referrals / Follow Up: Chevy Matthew DO [Primary Care Provider] - Within 2 Weeks Disposition Disposition (needs filled in before D/C Order can be placed): Home, Self Care
--- NOTE | 2021-07-18 16:46 | PCM.DC.SUM ---
Providers Date of Admission: 07/17/21 Date of Discharge: 07/18/21 Primary Care Physician: Dr. Chevy Matthew, DO Reason For Visit: VERTIGO, DIPLOPIA, ? POSTERIOR CIRCULATION CVA Diagnosis Discharge Diagnosis (1) Vertigo: Status: Acute Code(s): R42 - Dizziness and giddiness (2) Diplopia: Status: Acute Code(s): H53.2 - Diplopia Plan: 1. 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 #2 essential hypertension #3 hyperlipidemia #4 pulmonary hypertension #5 obstructive sleep apnea Medications at Discharge Home Medications aspirin 81 mg PO DAILY 09/07/17 atorvastatin 80 mg PO QHS 09/07/17 metoprolol tartrate 50 mg PO BID 09/07/17 amlodipine 5 mg PO DAILY #30 tab 03/26/18 nitroglycerin 0.3 mg sublingual tablet 0.3 mg SL Q5M PRN 08/29/20 omega-3 fatty acids 1,000 mg capsule 1,000 mg PO DAILY 08/29/20 omeprazole 20 mg capsule,delayed release 20 mg PO DAILY 08/29/20 albuterol sulfate 90 mcg/actuation aerosol inhaler 2 puff INHALATION Q4H PRN #8.5 gm 01/14/21 furosemide 20 mg tablet 20 mg PO DAILY #3 tab 07/16/21 calcium carbonate 1,000 mg PO DAILY 07/17/21 cholecalciferol (vitamin D3) 25 mcg PO DAILY 07/17/21 fluticasone propion-salmeterol [Wixela Inhub] 1 inh INHALATION BID 07/17/21 clopidogrel [Plavix] 75 mg PO DAILY #30 tab 07/18/21 furosemide [Lasix] 20 mg PO DAILY #30 tab 07/18/21 Hospital Course Operations None Procedures 2-D Echocardiogram Summary of Care Provided Minutes Spent on Discharge: 32 Hospital Course: This 75-year-old white female presented to the emergency room at [facility] with dizziness. The dizziness was worse with movement, patient was having associated vomiting and nausea. Patient also had symptoms of double vision, [facility] teleneurology was consulted in the emergency room and it was thought that this double vision was due to benign positional vertigo, it was felt that the patient would be best served to get an MRI to rule out CVA. Lab work was obtained which was unremarkable, CT of the brain showed chronic involutional changes. Patient was placed in observation status on PCU, she was seen by PT and OT, she underwent an MRI of the brain which showed an acute left paramedian pontine nonhemorrhagic infarction. Patient symptoms resolved during her hospital stay, she was not felt to need OT or PT as an outpatient. Patient was placed on Plavix and aspirin at the time of discharge, patient was already on a statin. Echocardiogram showed a normal ejection fraction without evidence of a right to left interatrial shunt. There is no Doppler evidence for an ASD. On 07/18/2021, patient was seen and examined: On examination she appeared in good health and spirits, she does not appear to be in any distress. Vital signs as documented. Skin warm and dry and without overt rashes. Neck without JVD, thyroid appears normal, trachea is midline, neck is supple. Lungs clear, normal air movement was noted. Heart exam notable for regular rhythm, normal sounds and absence of murmurs, rubs or gallops. Abdomen unremarkable and without evidence of organomegaly, masses, or abdominal aortic enlargement, bowel sounds are present in all 4 quadrants, no abdominal tenderness was noted. Extremities nonedematous, no cyanosis was noted, no clubbing was noted. Neuro: Cranial nerves II through XII are grossly intact, no focal motor deficits were noted, sensation to light touch and pinprick is intact, motor exam 5/5 throughout. Psych: Patient is alert and oriented x3, she does not appear anxious or depressed, she does not appear agitated. Patient was felt to be stable for discharge on 07/18/2021. Weight / BMI Weight Weight: 82.191 kg Body Mass Index (BMI) 33.1 ABG / Lab / Microbiology Data Result Diagrams: 07/17/21 13:15 07/17/21 13:15 Laboratory: Laboratory Results - last 24 hr 07/17/21 13:15: Troponin I High Sens 10 07/18/21 04:58: Triglycerides 122, Cholesterol 112, LDL Cholesterol 49, VLDL Cholesterol 24, HDL Cholesterol 39 L Radiography Diagnostic Testing: Radiology Impression Head/Neck CTA 07/17/21 16:00 IMPRESSION: 1. Normal CTA Head with contrast. 2. Bovine arch. 3. Moderate (60%) stenosis right carotid stenosis. 4. No left carotid stenosis. 5. Hypoplastic right vertebral artery which terminates as the right posterior inferior cerebellar artery. Widely patent dominant left vertebral artery. Electronically Signed: Merlin Paredes MD at 16:35 EST , ADDENDUM: 07/17/21 1647 IMPRESSION: 1. Normal CTA Head with contrast. 2. Bovine arch. 3. Moderate (60%) stenosis right carotid stenosis. 4. No left carotid stenosis. 5. Hypoplastic right vertebral artery which terminates as the right posterior inferior cerebellar artery. Widely patent dominant left vertebral artery. N.B. : The above Results were Read Back by Merlin Paredes MD to Sushil Maguire MD, and understanding confirmed on 07/17/2021 16:40:34 (ET). Electronically Signed: Merlin Paredes MD at 16:35 EST , Brain MRI 07/17/21 16:57 IMPRESSION: 1. Mild involutional changes, mild chronic microvascular deep white matter disease. 2. Focal area of LEFT paramedian pontine acute nonhemorrhagic infarct measuring approximately 13 x 7 mm in size. 3. No other evidence mass, hemorrhage, or acute territorial infarct. Electronically Signed: Merlin Nicholson MD at 21:46 EST , ADDENDUM: 07/17/21 2222 IMPRESSION: 1. Mild involutional changes, mild chronic microvascular deep white matter disease. 2. Focal area of LEFT paramedian pontine acute nonhemorrhagic infarct measuring approximately 13 x 7 mm in size. 3. No other evidence mass, hemorrhage, or acute territorial infarct. N.B. : The above Results were Read Back by Merlin Nicholson MD to Dr. Solo MD, and understanding confirmed on 07/17/2021 22:15:40 (ET). Electronically Signed: Merlin Nicholson MD at 21:46 EST , D/C Instructions Discharge Diet: No restrictions Weight Bearing Status: Full weight bearing Meaningful Use Info Meaningful Use Diagnoses (Choose all that apply): Ischemic CVA CVA Therapy Assessed for PT,OT and/or ST?: Yes Ischemic Stroke Antithrombotic order at d/c?: Yes Dx of Atrial fib/flutter?: No Anticoagulant at discharge?: No Reason anticoagulant not ordered: Treatment not Indicated Statins at discharge?: Yes Primary Dx Acute Ischemic CVA?: Yes IV tPA ordered during stay?: No Reason IV t-PA not ordered: Treatment not Indicated Discharge Plan Admission Admit Date/Time: 07/17/21 16:25 Primary Reason for Your Visit: acute pontine stroke Attending Provider: Damien Benedict Primary Care Provider: Chevy Matthew Discharge Orders/Prescriptions Prescriptions: New furosemide [Lasix] 20 mg tablet 20 mg PO DAILY Qty: 30 RF: 0 clopidogrel [Plavix] 75 mg tablet 75 mg PO DAILY Qty: 30 RF: 0 Continued omega-3 fatty acids [Fish Oil Concentrate] 1,000 mg capsule 1,000 mg PO DAILY RF: 0 nitroglycerin 0.3 mg tablet, sublingual 0.3 mg SL Q5M PRN (Reason: Chest Pain) RF: 0 omeprazole 20 mg capsule,delayed release(DR/EC) 20 mg PO DAILY RF: 0 albuterol sulfate 90 mcg/actuation HFA aerosol inhaler 2 puff INHALATION Q4H PRN (Reason: shortness of breath or wheezing) Qty: 8.5 RF: 6 atorvastatin 80 MG tablet 80 mg PO QHS RF: 0 aspirin 81 MG tablet,delayed release (DR/EC) 81 mg PO DAILY RF: 0 metoprolol tartrate 50 MG tablet 50 mg PO BID RF: 0 amlodipine 5 MG tablet 5 mg PO DAILY Qty: 30 RF: 0 fluticasone propion-salmeterol [Wixela Inhub] 500-50 mcg/dose blister with device 1 inh INHALATION BID RF: 0 calcium carbonate 500 mg calcium (1,250 mg) Tablet 1,000 mg PO DAILY RF: 0 cholecalciferol (vitamin D3) 25 mcg (1,000 unit) Capsule 25 mcg PO DAILY RF: 0 furosemide 20 mg tablet 20 mg PO DAILY Qty: 3 RF: 0 Referrals / Follow Up: Chevy Matthew DO [Primary Care Provider] - Within 2 Weeks Disposition Disposition (needs filled in before D/C Order can be placed): Home, Self Care Charges/Coding Visit Charges OBSV E&M: 48962 Observation care discharge
== END 2021-07-18 16:25 | disposition home or self-care (01) ==
LOC: ED 16:10 → PCU 16:30
PROVIDERS: Emergency Provider Emergency Medicine; PCP Family Medicine; Visit Provider Internal Medicine
DX: I63.9 Cerebral infarction, unspecified (principal); R11.2 Nausea with vomiting, unspecified; I65.21 Occlusion and stenosis of right carotid artery; E78.5 Hyperlipidemia, unspecified; H53.2 Diplopia; I10 Essential (primary) hypertension; R73.9 Hyperglycemia, unspecified; J45.909 Unspecified asthma, uncomplicated; G47.33 Obstructive sleep apnea (adult) (pediatric); Z79.82 Long term (current) use of aspirin; Z79.899 Other long term (current) drug therapy; Z86.718 Personal history of other venous thrombosis and embolism; R29.700 NIHSS score 0
CPT/HCPCS: 36415; 70450; 70496; 70498; 70551; 80053; 80061; 84484; 85025; 93005; 93306; 94640; 94762; 96374; 97162; 97165; 97802; 99218; 99285; 99406; J7030; Q9957; Q9967; A4216; G0378; J2405

== ENCOUNTER 2021-07-25 09:00 | Outpatient (CLI) | payer MEDICARE, BC, SELFPAY | END 2021-07-25 23:59 | disposition home or self-care (01) | PROVIDERS: PCP Family Medicine; Visit Provider Nurse Practitioner Acute Care | DX: G47.33 Obstructive sleep apnea (adult) (pediatric) (principal) | CPT/HCPCS: 98960; G0463 ==

== ENCOUNTER 2021-08-08 12:27 | Inpatient (IN) | payer MEDICARE, BC, SELFPAY ==
[2021-08-08] VITALS (9 sets, daily range): BP systolic 106–145; BP diastolic 45–67; PULSE 81–118; RESP 16; TEMP 36.3–37.9; O2SAT 90–95; BMI 32.9
--- NOTE | 2021-08-08 13:26 | EKG12_ITS ---
Test Reason : ABDOMINAL PAIN Blood Pressure : / mmHG Vent. Rate : 110 BPM Atrial Rate : 110 BPM P-R Int : 224 ms QRS Dur : 082 ms QT Int : 322 ms P-R-T Axes : 000 029 116 degrees QTc Int : 435 ms Sinus tachycardia with 1st degree A-V block Nonspecific ST and T wave abnormality Abnormal ECG Confirmed by JV SOLIS, JEB ([id number]), editor dictionary HERB FLEMING ([id number]) on 08/12/2021 10:34:08 AM Referred By: REZA/FANTA Confirmed By:JEB CARIAS MD
--- NOTE | 2021-08-08 13:27 | CT_ITS ---
STUDY: CT ABDOMEN AND PELVIS WITH CONTRAST REASON FOR EXAM: Female, 75 years old. Nausea vomiting, upper abdominal pain RADIATION DOSAGE (If Supplied By Facility): CTDIvol = ( 18.88 ) mGy, DLP = ( 1163.00 ) mGycm TECHNIQUE: Transaxial images were obtained from the dome of the diaphragm to the symphysis pubis without oral contrast. IV 100mL Isovue-300 was administered. Sagittal and coronal images were reconstructed. Individualized dose optimization techniques were used for this CT. COMPARISON: Comparison is made with prior study dated 11/05/2019. FINDINGS: Increased markings with areas of confluence in the right lower lobe as well as in the left lower lobe. Early bibasilar infiltrates should be ruled out. Coronary artery calcification. Calcification of the mitral valve annulus. There is decreased attenuation of the liver consistent with steatosis. The patient is status post cholecystectomy. There is a mild degree of intrahepatic biliary ductal dilatation. The common bile duct is mildly elevated most likely secondary to the post cholecystectomy state. It measures 1 sinus and transverse dimension. Normal spleen. Normal pancreas. Normal bilateral adrenal glands. Normal right kidney. Normal left kidney. Normal visualized stomach. Normal small intestine. There are multiple colonic diverticula consistent with diverticulosis. The appendix is visualized and appears normal. There is diffuse atherosclerotic calcification of the abdominal aorta and its major visceral branches, without a demonstrated aneurysm. Normal inferior vena cava. Normal retroperitoneum. Normal urinary bladder. There is a small umbilical hernia containing fat. There are diffuse degenerative changes of the visualized lumbar spine. CT/Abdomen/Pelvis W IV Cont ONLY IMPRESSION: Increased markings with areas of confluence at the lung bases as described worse on the right side. Bibasilar pulmonary infiltrates should be ruled out. Fatty infiltration of the liver. Mild degree of central intrahepatic biliary ductal dilatation as well as common bile duct most likely secondary to the post cholecystectomy state. Sigmoid diverticulosis. Small umbilical hernia containing fat. Electronically Signed: Kerwin Joe MD at 14:56 EDT ,
[2021-08-08] MEDS: Morphine 4 MG/ML Syringe IV (13:47)
[2021-08-08] MEDS: Ondansetron 4 MG/2 ML Vial IV (13:48)
[2021-08-08] MEDS: 0.9% Normal Saline 1,000 ML 1000 ML IV (13:48)
[2021-08-08 13:51] LABS: Absolute Lymphocyte Count 0.49 X10^3/uL (0.83-4.51); Absolute Neutrophil Count 11.4 X10^3/uL (2.0-7.7); Basophil# 0.02 X10^3/uL; Basophil% 0.2 % (0-1); Eosinophil# 0.01 X10^3/uL; Eosinophils% 0.1 % (0-5); Hematocrit 44.2 % (37-47); Hemoglobin 13.9 g/dL (12.0-15.0); Lymphocyte # 0.49 X10^3/ul (0.83-4.51); Mean Corp Hgb Conc 31.4 g/dL (32-36); Mean Corpuscular Hgb 26.3 pg (27.0-32.0); Mean Corpuscular Volume 83.6 fL (81-99); Mean Platelet Vol. 9.7 fl (6.2-12.0); Monocyte# 0.28 X10^3/uL; Monocyte% 2.3 % (0-10); NRBC Flagged by Analyzer 0 % (0-5); Neutrophil # 11.35 X10^3/uL (2.7-7.7); Neutrophil % 92.9 % (47-70); POSITIVE DIFFERENTIAL YES; Platelet Count 298 K/mm3 (150-450); RBC Distribution Width CV 15.8 % (11.6-14.6); RBC Distribution Width SD 47.6 fl (35.1-43.9); Red Blood Count 5.29 M/mm3 (4.2-5.4); White Blood Count 12.2 K/mm3 (4.4-11.0)
[2021-08-08 13:55] LABS: Differential Indicated SCAN CRITERIA MET
[2021-08-08 14:09] LABS: ALB/GLOB Ratio 0.9 RATIO (0.9-2.4); AST(SGOT) 505 U/L (15-37); Alanine Aminotransfer ALT/SGPT 430 U/L (13-56); Albumin, Serum 3.6 g/dL (3.2-5.0); Alkaline Phosphatase 291 U/L (45-117); Anion Gap 6 (5-15); BUN 23 mg/dL (7-18); BUN/Creat Ratio 18.5 RATIO (10-20); Calcium,Total 9.4 mg/dL (8.5-10.1); Chloride 106 mmol/L (98-107); Creatinine, Serum 1.24 mg/dL (0.55-1.02); EST Glomerular Filtration Rate 45 mL/min (>60); Est Glom Filt Rate - Afr Amer 54 mL/min (>60); Estimated Creatinine Clearance 31.96 ml/min; Globulin 3.8 g/dL (2.2-4.2); Glucose 176 mg/dL (74-106); Lipase 57 U/L (73-393); Potassium 3.7 mmol/L (3.5-5.1); Protein, Total 7.4 g/dL (6.4-8.2); Sodium Level 139 mmol/L (136-145)
[2021-08-08 14:18] LABS: Lactic Acid 2.7 mmol/L (0.4-1.9)
--- NOTE | 2021-08-08 14:37 | EX.ED.DYSGE1 ---
HPI <SRIRAM Dhillon - Last Filed: 08/08/21 16:18> History of Present Illness Chief Complaint: Abd Pain Narrative Narrative: 75-year-old female with history of asthma, sleep apnea elevated liver enzymes choledocholithiasis presents to the emergency department with complaints of sudden onset of upper abdominal pain, shortness of breath, nausea and vomiting. Patient used her CPAP machine for the first time in 1 year last evening, patient suddenly woke up at 2 in the morning with severe upper abdominal pain, patient states that she also felt somewhat short of breath, patient had multiple episodes of nausea and vomiting. Patient denies any fevers or chills. Patient [place] any blood in stool or vomit. PFSH <SRIARM Dhillon - Last Filed: 08/08/21 16:18> [facility] Medical History Asthma Back pain Broken jaw DVT (deep venous thrombosis) Edema Gout Hepatitis B Hyperlipidemia Hypertension Post-menopausal Restless legs Retinal tear Sleep apnea Home Medications aspirin 81 mg PO DAILY 09/07/17 [History Last Taken 07/15/21] atorvastatin 80 mg PO QHS 09/07/17 [History Last Taken 07/15/21] metoprolol tartrate 50 mg PO BID 09/07/17 [History Last Taken 07/16/21] amlodipine 5 mg PO DAILY #30 tab 03/26/18 [Rx Last Taken 07/16/21] nitroglycerin 0.3 mg sublingual tablet 0.3 mg SL Q5M PRN 08/29/20 [History Last Taken Unknown] omega-3 fatty acids 1,000 mg capsule 1,000 mg PO DAILY 08/29/20 [History Last Taken 07/15/21] omeprazole 20 mg capsule,delayed release 10 mg PO DAILY 08/29/20 [History Last Taken 07/16/21] albuterol sulfate 90 mcg/actuation aerosol inhaler 2 puff INHALATION Q4H PRN #8.5 gm 01/14/21 [Rx Last Taken Unknown] furosemide 20 mg tablet 20 mg PO DAILY #3 tab 07/16/21 [Rx Last Taken Unknown] calcium carbonate 1,000 mg PO DAILY 07/17/21 [History Last Taken 07/15/21] cholecalciferol (vitamin D3) 25 mcg PO DAILY 07/17/21 [History Last Taken 07/15/21] fluticasone propion-salmeterol [Wixela Inhub] 1 inh INHALATION BID 07/17/21 [History Last Taken 07/16/21] clopidogrel [Plavix] 75 mg PO DAILY #30 tab 07/18/21 [Rx Last Taken Unknown] furosemide [Lasix] 20 mg PO DAILY #30 tab 07/18/21 [Rx Last Taken Unknown] Allergy/AdvReac Type Severity Reaction Status Date / Time sulfamethoxazole Allergy Severe Anaphylaxis Verified 08/08/21 12:28 [From Bactrim] estrogens, conjugated AdvReac Other htn Verified 08/08/21 12:28 [From Premarin] isosorbide [From Imdur] AdvReac Other, Verified 08/08/21 12:28 severe headache and vomitting levofloxacin [From Levaquin] AdvReac Other Verified 08/08/21 12:28 bilateral tendonitis raloxifene [From Evista] AdvReac Other- HTN Verified 08/08/21 12:28 solifenacin [From Vesicare] AdvReac Other Verified 08/08/21 12:28 trimethoprim [From Bactrim] AdvReac Other Verified 08/08/21 12:28 Family History Brother Hx of heart bypass surgery Heart disease CVA (cerebral vascular accident) Cancer skin Mother Hx of heart bypass surgery Heart disease Hypertension Father Hx of heart bypass surgery Heart disease Hypertension Sister Hx of heart bypass surgery Surgical History H/O adenoidectomy H/O bilateral cataract extraction History of bunionectomy History of cardiac catheterization History of dilation and curettage History of left heart catheterization History of tonsillectomy History of tubal ligation S/P laparoscopic cholecystectomy (~07/07/19) skin cancer removed Social History household members: spouse housing: house current occupational status: retired pets and animals: Yes pets and animals: cat(s) Smoking Status: Never smoker second hand exposure: No alcohol intake: never substance use type: does not use ROS <Chevy Aslanijoao, POCKET SETTER LOCKSTITCH-C - Last Filed: 08/08/21 16:18> ROS ED ROS Narrative Constitutional: Negative for fever, chills, weight loss or gain, weakness Eyes: Negative for vision loss, vision change, double vision ENT: Negative for any hearing changes, ringing in the ears, dizziness, discharge, pain Nose: Negative for any congestion, runny nose, sinus pain, allergies Throat: Negative for any sore throat hoarseness, voice changes, Cardiovascular: Negative for any chest pain, tightness, palpitations, racing heartbeat Respiratory: Negative for any coughs, sputum production, coughing, hemoptysis, shortness of breath on exertion. Positive shortness of breath Gastrointestinal: Negative for any diarrhea, constipation, blood in stool, blood in vomit. Positive for abdominal pain, nausea and vomiting : Negative for any urinary frequency, incontinence, dysuria, retention, blood in urine Muscle skeletal: Negative for any muscle joint pain, stiffness, myalgias, arthralgias, neck pain, back pain Neurological: Negative for any headache, head injury, dizziness, syncope, numbness or tingling Skin: Negative for any rashes, lumps, itching, abrasions, lacerations Psychiatric: Negative for any depression, anxiety, stress, suicidal ideation, homicidal ideation Hematologic: Negative for any easy bruising, excessive bruising, easy bleeding Allergies: Negative for any eczema, hives, rash EXAM <SRIRAM Dhillon - Last Filed: 08/08/21 16:18> Physical Exam Const Vital Signs: 08/08/21 12:28 08/08/21 13:58 08/08/21 16:07 Temperature 97.4 F L 99.3 F H Temperature Source Temporal Temporal Pulse Rate 118 H 103 H 84 Respiratory Rate 16 16 16 Blood Pressure 106/67 120/49 L Blood Pressure Mean 80 72 Pulse Ox 90 93 95 Oxygen Delivery Method Room Air Nasal Cannula Nasal Cannula Oxygen Flow Rate (L/min) 4 2 Positive well nourished, well developed and obese General Appearance ED: well developed Nutritional Appearance: obese Eyes PERRL and EOMs intact bilaterally Neck no lymphadenopathy and supple Chest Wall inspection of chest normal and palpation of chest normal Resp normal respiratory effort and clear to auscultation bilaterally Cardio Rate: tachycardic GI Palpation: soft and tender LUQ and RUQ Back/Spine no CVA tenderness Extremity normal to inspection Neuro oriented x3 and CN's II-XII intact bilaterally Sensorium / Orientation: alert Motor Exam: strength 5/5 throughout Psych mental status grossly normal Skin no rashes or lesions noted <Dr. Surendra Chow MD - Last Filed: 08/08/21 16:16> Physical Exam Const Vital Signs: 08/08/21 12:28 08/08/21 13:58 08/08/21 16:07 Temperature 97.4 F L 99.3 F H Temperature Source Temporal Temporal Pulse Rate 118 H 103 H 84 Respiratory Rate 16 16 16 Blood Pressure 106/67 120/49 L Blood Pressure Mean 80 72 Pulse Ox 90 93 95 Oxygen Delivery Method Room Air Nasal Cannula Nasal Cannula Oxygen Flow Rate (L/min) 4 2 MDM <SRIRAM Dhillon - Last Filed: 08/08/21 16:18> MDM Lab Data Labs: Laboratory Results - last 24 hr 08/08/21 08/08/21 08/08/21 13:40 13:40 13:40 WBC 12.2 H RBC 5.29 Hgb 13.9 Hct 44.2 MCV 83.6 MCH 26.3 L MCHC 31.4 L RDW Std Deviation 47.6 H RDW Coeff of Justin 15.8 H Plt Count 298 MPV 9.7 Immature Gran % (Auto) 0.500 Neut % (Auto) 92.9 H Lymph % (Auto) 4.0 L [place] % (Auto) 2.3 Eos % (Auto) 0.1 Baso % (Auto) 0.2 Absolute Neuts (auto) 11.4 H Absolute Lymphs (auto) 0.49 L Nucleated RBC % 0 Differential Comment COMMENT Sodium 139 Potassium 3.7 Chloride 106 Carbon Dioxide 27.0 Anion Gap 6 BUN 23 H Creatinine 1.24 H Estim Creat Clear Calc 31.96 Est GFR (MDRD) Af Amer 54 L Est GFR (MDRD) Non-Af 45 L BUN/Creatinine Ratio 18.5 Glucose 176 H Lactic Acid 2.7 H* Calcium 9.4 Total Bilirubin 2.20 H AST 505 H ALT 430 H Alkaline Phosphatase 291 H Total Protein 7.4 Albumin 3.6 Globulin 3.8 Albumin/Globulin Ratio 0.9 Lipase 57 L Urine Color Urine Clarity Urine pH Ur Specific [place] Urine Protein Urine Glucose (UA) Urine Ketones Urine Occult Blood Urine Nitrite Urine Bilirubin Urine Urobilinogen Ur Leukocyte Esterase Urine RBC Urine WBC Ur Squamous Epith Cells Urine Bacteria Urine Mucus 08/08/21 14:45 WBC RBC Hgb Hct MCV MCH MCHC RDW Std Deviation RDW Coeff of Justin Plt Count MPV Immature Gran % (Auto) Neut % (Auto) Lymph % (Auto) [place] % (Auto) Eos % (Auto) Baso % (Auto) Absolute Neuts (auto) Absolute Lymphs (auto) Nucleated RBC % Differential Comment Sodium Potassium Chloride Carbon Dioxide Anion Gap BUN Creatinine Estim Creat Clear Calc Est GFR (MDRD) Af Amer Est GFR (MDRD) Non-Af BUN/Creatinine Ratio Glucose Lactic Acid Calcium Total Bilirubin AST ALT Alkaline Phosphatase Total Protein Albumin Globulin Albumin/Globulin Ratio Lipase Urine Color Yellow Urine Clarity Sl. Cloudy Urine pH 7.0 Ur Specific [place] 1.005 Urine Protein 30 H Urine Glucose (UA) Normal Urine Ketones Negative Urine Occult Blood 10 H Urine Nitrite Negative Urine Bilirubin 1 H Urine Urobilinogen 4 H Ur Leukocyte Esterase 100 H Urine RBC 0 SEEN Urine WBC 0 SEEN Ur Squamous Epith Cells 0-5 SEEN Urine Bacteria 0 SEEN Urine Mucus 0 SEEN Radiography Diagnostic Testing: Clinical Impression(s) from Imaging Studies Abdomen/Pelvis CT 08/08/21 13:27 IMPRESSION: Increased markings with areas of confluence at the lung bases as described worse on the right side. Bibasilar pulmonary infiltrates should be ruled out. Fatty infiltration of the liver. Mild degree of central intrahepatic biliary ductal dilatation as well as common bile duct most likely secondary to the post cholecystectomy state. Sigmoid diverticulosis. Small umbilical hernia containing fat. Electronically Signed: Kerwin Joe MD at 14:56 EDT , Treatment and Re-Evaluation Narrative: Patient arrives in moderate abdominal pain, nausea and vomiting. Patient states she had nausea and vomited started all of a sudden at 2 AM this morning. Patient received a full abdominal exam. Patient CBC shows a leukocytosis with a white blood count of 12.2, patient's lactic acid was elevated at 2.7 which is critical high. Patient did have elevation of her liver enzymes which she has had in the past. Patient CT scan showed fatty infiltration of liver, mild degree of central intrahepatic biliary ductal dilatation as well as common bile duct most likely secondary to post cholecystectomy state. On reassessment, the patient was in a position of comfort, the patient's surgeon Dr. Angelo is concerned that she has a obstructed biliary stone. Patient be admitted to surgery. Patient is aware and is stable for admission. Patient be given IV fluids, IV Zosyn <Dr. Surendra Chow MD - Last Filed: 08/08/21 16:16> [facility] Narrative Medical decision making narrative: 75-year-old female evaluated with our physician district administrative assistant. Patient has recurrent upper abdominal pain. Occurred last evening and this morning. She has had a history of a prior cholecystectomy but in the past has had post cholecystectomy biliary stones with obstruction. Older female with flank pain. Vital signs are stable and afebrile. BP medications. CAT scan and labs. She is tender in the lower abdomen. There is no peritoneal signs. She is diffusely tender. Mostly in upper quadrants. There is no signs of obstruction. No pulsatile mass. Otherwise exam is unremarkable. Work-up is consistent with retained biliary stone with obstruction. We spoken to Dr. Atkinson to general surgery. He plans to take him to the OR when available. She will be treated with Zosyn. He is in the emergency department taking care of her at this time. Lab Data Labs: Laboratory Results - last 24 hr 08/08/21 08/08/21 08/08/21 13:40 13:40 13:40 WBC 12.2 H RBC 5.29 Hgb 13.9 Hct 44.2 MCV 83.6 MCH 26.3 L MCHC 31.4 L RDW Std Deviation 47.6 H RDW Coeff of Justin 15.8 H Plt Count 298 MPV 9.7 Immature Gran % (Auto) 0.500 Neut % (Auto) 92.9 H Lymph % (Auto) 4.0 L [place] % (Auto) 2.3 Eos % (Auto) 0.1 Baso % (Auto) 0.2 Absolute Neuts (auto) 11.4 H Absolute Lymphs (auto) 0.49 L Nucleated RBC % 0 Differential Comment COMMENT Sodium 139 Potassium 3.7 Chloride 106 Carbon Dioxide 27.0 Anion Gap 6 BUN 23 H Creatinine 1.24 H Estim Creat Clear Calc 31.96 Est GFR (MDRD) Af Amer 54 L Est GFR (MDRD) Non-Af 45 L BUN/Creatinine Ratio 18.5 Glucose 176 H Lactic Acid 2.7 H* Calcium 9.4 Total Bilirubin 2.20 H AST 505 H ALT 430 H Alkaline Phosphatase 291 H Total Protein 7.4 Albumin 3.6 Globulin 3.8 Albumin/Globulin Ratio 0.9 Lipase 57 L Urine Color Urine Clarity Urine pH Ur Specific [place] Urine Protein Urine Glucose (UA) Urine Ketones Urine Occult Blood Urine Nitrite Urine Bilirubin Urine Urobilinogen Ur Leukocyte Esterase Urine RBC Urine WBC Ur Squamous Epith Cells Urine Bacteria Urine Mucus 08/08/21 14:45 WBC RBC Hgb Hct MCV MCH MCHC RDW Std Deviation RDW Coeff of Justin Plt Count MPV Immature Gran % (Auto) Neut % (Auto) Lymph % (Auto) [place] % (Auto) Eos % (Auto) Baso % (Auto) Absolute Neuts (auto) Absolute Lymphs (auto) Nucleated RBC % Differential Comment Sodium Potassium Chloride Carbon Dioxide Anion Gap BUN Creatinine Estim Creat Clear Calc Est GFR (MDRD) Af Amer Est GFR (MDRD) Non-Af BUN/Creatinine Ratio Glucose Lactic Acid Calcium Total Bilirubin AST ALT Alkaline Phosphatase Total Protein Albumin Globulin Albumin/Globulin Ratio Lipase Urine Color Yellow Urine Clarity Sl. Cloudy Urine pH 7.0 Ur Specific [place] 1.005 Urine Protein 30 H Urine Glucose (UA) Normal Urine Ketones Negative Urine Occult Blood 10 H Urine Nitrite Negative Urine Bilirubin 1 H Urine Urobilinogen 4 H Ur Leukocyte Esterase 100 H Urine RBC 0 SEEN Urine WBC 0 SEEN Ur Squamous Epith Cells 0-5 SEEN Urine Bacteria 0 SEEN Urine Mucus 0 SEEN Radiography Diagnostic Testing: Clinical Impression(s) from Imaging Studies Abdomen/Pelvis CT 08/08/21 13:27 IMPRESSION: Increased markings with areas of confluence at the lung bases as described worse on the right side. Bibasilar pulmonary infiltrates should be ruled out. Fatty infiltration of the liver. Mild degree of central intrahepatic biliary ductal dilatation as well as common bile duct most likely secondary to the post cholecystectomy state. Sigmoid diverticulosis. Small umbilical hernia containing fat. Electronically Signed: Kerwin Joe MD at 14:56 EDT , Discharge Plan Dx/Rx/DC Orders Clinical Impression: Abdominal pain, Biliary calculus with obstruction without cholecystitis Disposition Disposition: Acute Care Hospital [facility]
[2021-08-08 14:54] LABS: Bacteria 0 SEEN /hpf (None Seen); Mucous, Urine 0 SEEN /hpf (<or=2+); Red Blood Cells-Urine 0 SEEN /hpf (0-5); White Blood Cells 0 SEEN /hpf (0-5)
[2021-08-08 14:59] LABS: Color, Urine Yellow (Yellow); Glucose, Dipstick Normal (Normal); Ketone-Dipstick Negative (Negative); Leukocyte Esterase-Dipstick 100 /ul (Negative); Nitrite-Dipstick Negative (Negative); Occult Blood-Urine 10 /ul (Negative); Protein-Dipstick 30 mg/dl (Negative); Specific Gravity, Urine 1.005 (1.002-1.030); Urine Bilirubin Dipstick 1 mg/dL (Negative); Urine Clarity Sl. Cloudy (Clear); Urine Urobilinogen 4 mg/dl (Normal)
[2021-08-08 15:08] LABS: Squamous Epithelial Cells - UA 0-5 SEEN /hpf (5-10)
--- NOTE | 2021-08-08 16:59 | HP.PCM.SX_ITS ---
HPI - General General Date of Admission: 08/08/21 HPI Narrative TORSTEN TORRES, is a 75 F who presents with epigastric and nausea and vomiting. Patient reports this started 2 AM this morning. She has had several episodes like this over the past year. She reports the pain is a bandlike pain that crosses the abdomen and radiates into the back. She reports nausea with vomiting. She does not have any fevers or chills. Of note she says she was in the hospital earlier this month for a small left-sided stroke. [facility] Medical History (Updated 08/08/21 @ 16:40 by Maira Carmen) Asthma Back pain Broken jaw Chest pain CPAP (continuous positive airway pressure) dependence DVT (deep venous thrombosis) Edema Gout Hepatitis Hepatitis B Hyperlipidemia Hypertension Non-smoker Post-menopausal Restless legs Retinal tear Sleep apnea Stroke/cerebrovascular accident Home Medications aspirin 81 mg PO DAILY 09/07/17 [History Last Taken 08/08/21] atorvastatin 80 mg PO QHS 09/07/17 [History Last Taken 08/07/21] metoprolol tartrate 50 mg PO BID 09/07/17 [History Last Taken 08/08/21] nitroglycerin 0.3 mg sublingual tablet 0.3 mg SL Q5M PRN 08/29/20 [History Last Taken Unknown] omega-3 fatty acids 1,000 mg capsule 1,000 mg PO DAILY 08/29/20 [History Last Taken 07/15/21] omeprazole 20 mg capsule,delayed release 10 mg PO DAILY 08/29/20 [History Last Taken 08/07/21] albuterol sulfate 90 mcg/actuation aerosol inhaler 2 puff INHALATION Q4H PRN #8.5 gm 01/14/21 [Rx Last Taken 08/08/21] calcium carbonate 1,000 mg PO DAILY 07/17/21 [History Last Taken 07/15/21] cholecalciferol (vitamin D3) 25 mcg PO DAILY 07/17/21 [History Last Taken 08/08/21] fluticasone propion-salmeterol [Wixela Inhub] 1 inh INHALATION BID 07/17/21 [History Last Taken 08/08/21] amlodipine 5 mg PO DAILY 08/08/21 [History Last Taken 08/08/21] azelastine 1 spray INTRANASAL BID PRN PRN 08/08/21 [History Last Taken Unknown] clopidogrel [Plavix] 75 mg PO DAILY 08/08/21 [History Last Taken 08/08/21] furosemide [Lasix] 20 mg PO DAILY 08/08/21 [History Last Taken 08/07/21] Allergy/AdvReac Type Severity Reaction Status Date / Time sulfamethoxazole Allergy Severe Anaphylaxis Verified 08/08/21 12:28 [From Bactrim] estrogens, conjugated AdvReac Other htn Verified 08/08/21 12:28 [From Premarin] isosorbide [From Imdur] AdvReac Other, Verified 08/08/21 12:28 severe headache and vomitting levofloxacin [From Levaquin] AdvReac Other Verified 08/08/21 12:28 bilateral tendonitis raloxifene [From Evista] AdvReac Other- HTN Verified 08/08/21 12:28 solifenacin [From Vesicare] AdvReac Other Verified 08/08/21 12:28 trimethoprim [From Bactrim] AdvReac Other Verified 08/08/21 12:28 Family History Brother Hx of heart bypass surgery Heart disease CVA (cerebral vascular accident) Cancer skin Mother Hx of heart bypass surgery Heart disease Hypertension Father Hx of heart bypass surgery Heart disease Hypertension Sister Hx of heart bypass surgery Surgical History (Updated 08/08/21 @ 16:40 by Maira Carmen) H/O adenoidectomy H/O bilateral cataract extraction History of bunionectomy History of cardiac catheterization History of cholecystectomy History of dilation and curettage History of left heart catheterization History of tonsillectomy History of tubal ligation S/P laparoscopic cholecystectomy (~07/07/19) skin cancer removed Social History household members: spouse housing: house current occupational status: retired pets and animals: Yes pets and animals: cat(s) Smoking Status: Never smoker second hand exposure: No alcohol intake: never substance use type: does not use ROS Constitutional Constitutional: Denies anorexia or chills Eyes Eyes: Denies blurry vision ENT HEENT: Denies abnormal hearing Cardiovascular Cardiovascular: Denies chest pain Respiratory/Chest Respiratory/Chest: Denies cough Gastrointestinal Gastrointestinal: Reports abdominal pain, nausea and vomiting; Denies coffee ground emesis, constipation or hematemesis Genitourinary Genitourinary: Denies change in urinary stream Musculoskeletal Musculoskeletal: Denies abnormal gait Integumentary Integumentary: Denies jaundice Neurologic Neurologic: Denies dizziness Psychiatric Psychiatric: Denies anxiety Endocrine Endocrinology: Denies flushing Hematologic/Lymphatic Hematologic/Lymphatic: Denies easy bleeding Vital Signs Vital Signs Vital Signs: 08/08/21 12:28 08/08/21 13:58 08/08/21 16:07 Temperature 97.4 F L 99.3 F H Temperature Source Temporal Temporal Pulse Rate 118 H 103 H 84 Respiratory Rate 16 16 16 Blood Pressure 106/67 120/49 L Blood Pressure Mean 80 72 Pulse Ox 90 93 95 Oxygen Delivery Method Room Air Nasal Cannula Nasal Cannula Oxygen Flow Rate (L/min) 4 2 Weight Weight: 180 lb Body Mass Index (BMI) 32.9 Physical Exam Const alert and oriented x3 Resp normal respiratory effort and normal air movement Cardio regular rate and regular rhythm GI soft to palpation and non-distended Palpation: tender epigastric Results Lab / Micro Data Result Diagrams: 08/08/21 13:40 08/08/21 13:40 Labs: Laboratory Results - last 24 hr 08/08/21 13:40: WBC 12.2 H, RBC 5.29, Hgb 13.9, Hct 44.2, MCV 83.6, MCH 26.3 L, MCHC 31.4 L, RDW Std Deviation 47.6 H, RDW Coeff of Justin 15.8 H, Plt Count 298, MPV 9.7, Immature Gran % (Auto) 0.500, Neut % (Auto) 92.9 H, Lymph % (Auto) 4.0 L, [place] % (Auto) 2.3, Eos % (Auto) 0.1, Baso % (Auto) 0.2, Absolute Neuts (auto) 11.4 H, Absolute Lymphs (auto) 0.49 L, Nucleated RBC % 0, Differential Comment COMMENT 08/08/21 13:40: Sodium 139, Potassium 3.7, Chloride 106, Carbon Dioxide 27.0, Anion Gap 6, BUN 23 H, Creatinine 1.24 H, Estim Creat Clear Calc 31.96, Est GFR (MDRD) Af Amer 54 L, Est GFR (MDRD) Non-Af 45 L, BUN/Creatinine Ratio 18.5, Glucose 176 H, Calcium 9.4, Total Bilirubin 2.20 H, AST 505 H, ALT 430 H, Alkaline Phosphatase 291 H, Total Protein 7.4, Albumin 3.6, Globulin 3.8, Albumin/Globulin Ratio 0.9, Lipase 57 L 08/08/21 13:40: Lactic Acid 2.7 H* 08/08/21 14:45: Urine Color Yellow, Urine Clarity Sl. Cloudy, Urine pH 7.0, Ur Specific [place] 1.005, Urine Protein 30 H, Urine Glucose (UA) Normal, Urine Ketones Negative, Urine Occult Blood 10 H, Urine Nitrite Negative, Urine Biliru bin 1 H, Urine Urobilinogen 4 H, Ur Leukocyte Esterase 100 H, Urine RBC 0 SEEN, Urine WBC 0 SEEN, Ur Squamous Epith Cells 0-5 SEEN, Urine Bacteria 0 SEEN, Urine Mucus 0 SEEN Radiology Impression Abdomen/Pelvis CT 08/08/21 13:27 IMPRESSION: Increased markings with areas of confluence at the lung bases as described worse on the right side. Bibasilar pulmonary infiltrates should be ruled out. Fatty infiltration of the liver. Mild degree of central intrahepatic biliary ductal dilatation as well as common bile duct most likely secondary to the post cholecystectomy state. Sigmoid diverticulosis. Small umbilical hernia containing fat. Electronically Signed: Kerwin Joe MD at 14:56 EDT , Assessment & Plan Assessment/Plan (1) Elevated liver enzymes: PLAN: Patient reports pain with nausea and vomiting since 2 AM. She says that it radiates to the back as well. Lipase was normal but her liver enzymes are all elevated. CT scan shows dilated common duct as well as dilated mohan hepatis. The patient likely has obstructive jaundice from primary choledocholithiasis. I discussed ERCP with her. I discussed the risks including dilated to bleeding, infection, perforation of bile duct or bowel or pancreatitis. There is also increased risk of stroke due to her recent ischemia. Her MRI showed a left sudheer infarct and she was placed on Plavix. She continues her Plavix and has not had any new symptoms in the last month. She had a CTA of the carotids which showed a 60% stenosis of the right carotid. Left carotid was normal. Patient did agree for ERCP and she will be taken tonight and continued on her Plavix and kept on antibiotics through the night. Orlin Espana MD Pager: [facility] [address] [place] [address], [address] [place] [address] Office:
[2021-08-08] MEDS: Lactated Ringers 1,000 ML 15 ML IV (17:28)
[2021-08-08] MEDS: 0.9% Normal Saline 1,000 ML 100 ML IV (17:45)
[2021-08-08 17:47] LABS: Reflex Lactate? Y
--- NOTE | 2021-08-08 18:40 | RAD_ITS ---
STUDY: INTRAOPERATIVE FLUOROSCOPY TECHNIQUE: The examination was performed with referring physician in attendance. Under fluoroscopic observation, fluoroscopic images were obtained. Radiologist was not present for the study. Radiologist did not perform the procedure. This dictation is for documentation of the radiation dosage only. There is no interpretation of the images. TOTAL NUMBER OF IMAGES: 1 COMPARISON: None RADIATION DOSE: 80.8 mGy FLUOROSCOPY TIME: 285.7 seconds REASON FOR EXAM: ERCP Female, 75 years old. FINDINGS: Surgical CRUMP in the [id number]. RAD/ERCP Biliary Only IMPRESSION: Fluoroscopic assistance images were obtained. Dictation for documentation purposes only. Electronically Signed: Avni Prado MD at 21:20 EDT ,
--- NOTE | 2021-08-08 20:58 | PN_ITS ---
Progress Note Patient and ERCP performed by myself and I was only able to cannulate a pancreatic duct. I called GI for assistance and he came down and also look that he thought were too proximal and then this was likely the minor duct and the patient may have pancreas divisum. He was unable to locate a common bile duct or ampulla and recommended transfer to tertiary center for a percutaneous transhepatic catheter with rendezvous technique and we are unable to do that at this hospital. I discussed transfer with the patient's and I discussed transfer with a pancreatic surgeon at [facility] and I will arrange transfer there. In the meantime I will keep her n.p.o. and continue her on antibiotics. Orlin Espana MD Pager: [facility] [address] [place] [address], [address] [place] [address] Office:
--- NOTE | 2021-08-08 20:59 | OP.PCM_ITS ---
Problems Associated Problem List Diagnoses (1) Elevated liver enzymes: Report of Operation Date of Procedure: 08/08/21 Pre-Operative Diagnosis: Obstructive jaundice and elevated liver enzymes Post-Operative Diagnosis: Same Surgery/Procedure Performed:: ERCP with attempted cannulation of common bile duct Description of Procedure: Patient was brought back to the operating room and general anesthesia was used. The patient was placed in prone position. A well- lubricated ERCP scope was placed into the mouth and down into the stomach and into the small bowel. A small opening was located and cannulated with a guidewire and this appeared to be the pancreas. Several attempts were made including double wire technique to cannulate common bile duct but this was unable to be performed. GI was called into the room and the GI physician attempted as well and believe that the cannulated duct was the minor pancreatic duct and that pancreas divisum was a possibility. He was unable to cannulate common bile duct either. At this time the procedure was aborted and the patient was rolled back in a supine position extubated and brought to PACU in stable condition. Admit VTE Documentation VTE Mechan Device Prophylaxis: SCD's
[2021-08-08] MEDS: 0.9% Normal Saline 1,000 ML 125 ML IV (22:32)
[2021-08-08] MEDS: Metoprolol Tartrate 50 MG Tablet PO (22:38)
[2021-08-08] MEDS: Atorvastatin Calcium 80 MG Tablet PO (22:39)
[2021-08-09 00:26] VITALS: BP 145/64; PULSE 72; RESP 18; TEMP 36.6; O2SAT 99
--- NOTE | 2021-08-09 02:25 | NURSING ---
called and gave report to Zulma KAPOOR at [facility] [phone]
[2021-08-09 02:43] VITALS: BP 137/55; PULSE 71; RESP 16; TEMP 37.1; O2SAT 97
[2021-08-09] MEDS: 0.9% Saline Lock 10 ML Syringe IV (02:54)
[2021-08-09] MEDS: Ondansetron 4 MG/2 ML Vial IV (02:54)
[2021-08-09] MEDS: 0.9% Normal Saline 1,000 ML 125 ML IV (05:12)
[2021-08-09 05:41] VITALS: BP 136/56; PULSE 74; RESP 16; TEMP 37.2; O2SAT 96
--- NOTE | 2021-08-09 06:47 | NURSING ---
gave update to Zulma. transport is here.
== END 2021-08-09 07:00 | disposition short-term general hospital (02) | DRG 446 ==
LOC: ED 16:21 → MS3 16:34
PROVIDERS: Nurse Practitioner; Admitting Provider Surgery; Emergency Provider Emergency Medicine; PCP Family Medicine; Visit Provider Surgery
PROC: 0F798ZZ Dilation of Common Bile Duct, Via Natural or Artificial Opening Endoscopic (ICD-10-PCS; CPT 43260; principal; 2021-08-08 16:30)
DX: K80.71 Calculus of gallbladder and bile duct without cholecystitis with obstruction (principal); E78.5 Hyperlipidemia, unspecified; I10 Essential (primary) hypertension; K83.8 Other specified diseases of biliary tract; I65.22 Occlusion and stenosis of left carotid artery; Z79.02 Long term (current) use of antithrombotics/antiplatelets; R74.8 Abnormal levels of other serum enzymes; Z79.810 Long term (current) use of selective estrogen receptor modulators (SERMs); Z79.82 Long term (current) use of aspirin; Z86.73 Personal history of transient ischemic attack (TIA), and cerebral infarction without residual deficits; Z99.89 Dependence on other enabling machines and devices; Z90.49 Acquired absence of other specified parts of digestive tract
CPT/HCPCS: 74177; 74328; 80053; 81001; 83605; 83690; 85025; 87426; 93005; 99284; J7030; J7120; Q9967; A4216; C1769; J1610; J2405

== ENCOUNTER → 2022-07-07 | Outpatient (CLI) | payer MEDICARE, BC, SELFPAY | END | disposition home or self-care (01) | LOC: SL 09:58 | PROVIDERS: PCP Family Medicine; Visit Provider Nurse Practitioner Acute Care | DX: G47.33 Obstructive sleep apnea (adult) (pediatric) (principal) | CPT/HCPCS: 95806 ==

== ENCOUNTER → 2022-11-13 | Outpatient (CLI) | payer MEDICARE, BC, SELFPAY | END | disposition home or self-care (01) | LOC: SL 11:14 | PROVIDERS: PCP Family Medicine; Referring Provider Internal Medicine Critical Care Medicine; Visit Provider Internal Medicine Critical Care Medicine | DX: G47.33 Obstructive sleep apnea (adult) (pediatric) (principal) | CPT/HCPCS: 95806 ==

== ENCOUNTER → 2024-12-29 | Outpatient (CLI) | payer MEDICARE, BC, SELFPAY ==
--- NOTE | 2024-12-29 07:53 | ECHOCS_ITS ---
Reason For Study Reason For Study: DYSPNEA Procedure This was a 2D Doppler, Color Flow transthoracic echocardiogram. The study was technically difficult. Contrast injection was performed. Exam performed in department. Left Ventricle Normal LV size. Moderate concentric left ventricular hypertrophy. The left ventricular ejection fraction is 70 %. Stage 1 diastolic dysfunction. Right Ventricle Normal RV size. The right ventricle is normal in size, function, and thickness. Atria Normal left atrium. Normal right atrium. Mitral Valve Normal mitral valve. There is mild mitral annular calcification. Mild-Moderate (1-2+) eccentric mitral valve insufficiency. Tricuspid Valve Normal tricuspid valve. Mild (1+) tricuspid valve insufficiency. Pulmonary artery systolic pressure is 35 mmHg. Aortic Valve Normal aortic valve. Pulmonic Valve Normal pulmonic valve. Great Vessels Normal aortic root. The pulmonary artery is normal size. Inferior vena cava collapse with respiration. Pericardium/Pleural No pericardial effusion. Medication 22 gauge I.V. with prn adaptor inserted into left arm. Diluted definity 1.5ml given slow IV push to enhance endocardial definition. MMode/2D Measurements & Calculations LVIDd: 4.4 cm IVSd: 1.5 cm LVOT diam: 2.0 cm LVIDs: 2.9 cm LVPWd: 1.5 cm RVDd: 2.7 cm FS: 33.3 % LVOT area: 3.1 cm2 LAV(MOD-bp): 48.9 ml LVAd ap4: 26.2 cm2 SV(MOD-sp4): 56.7 ml LAV(MOD-bp) Indexed: 27.7 ml/m2 LVLd ap4: 7.8 cm SI(MOD-sp4): 32.2 ml/m2 LAV(MOD-sp2): 39.2 ml EDV(MOD-sp4): 75.7 ml LAV(MOD-sp4): 51.9 ml EDV(sp4-el): 74.6 ml LVAs ap4: 11.5 cm2 LVLs ap4: 6.0 cm ESV(MOD-sp4): 19.1 ml ESV(sp4-el): 18.5 ml EF(MOD-sp4): 74.8 % EF(sp4-el): 75.2 % SV(sp4-el): 56.1 ml LA A4 area: 19.2 cm2 LA dimension(2D): 4.3 cm RA A4 area: 13.1 cm2 Time Measurements MV dec time: 0.12 sec Doppler Measurements & Calculations MV E max hang: 97.9 cm/sec Lat Peak E' Hang: 6.6 cm/sec Med Peak E' Hang: 5.6 cm/sec MV A max hang: 126.9 cm/sec E/E' lat: 14.9 E/E' med: 17.5 MV E/A: 0.77 MV V2 max: 128.1 cm/sec MV dec slope: 830.4 cm/sec2 Ao V2 max: 111.9 cm/sec MV max P.6 mmHg Ao max P.0 mmHg MV V2 mean: 72.9 cm/sec Ao V2 mean: 75.6 cm/sec MV mean P.7 mmHg Ao mean P.7 mmHg MV V2 VTI: 36.2 cm Ao V2 VTI: 22.3 cm MVA(VTI): 2.4 cm2 AV (velocity ratio): 1.2 LEANA(I,D): 3.8 cm2 LEANA(V,D): 3.2 cm2 LV V1 max: 113.5 cm/sec SV(LVOT): 85.7 ml PA V2 max: 91.2 cm/sec LV V1 max P.1 mmHg PA V2 mean: 72.2 cm/sec LV V1 mean P.9 mmHg LV V1 mean: 77.3 cm/sec LV V1 VTI: 27.6 cm TR max hang: 275.6 cm/sec TR max P.4 mmHg ECHO/Echo Complete W/ Contrast Interpretation Summary Normal LV size. Moderate concentric left ventricular hypertrophy. The left ventricular ejection fraction is 70 %. Stage 1 diastolic dysfunction. Pulmonary artery systolic pressure is 35 mmHg. Contrast injection was performed. Ordering Physician: Bailey Mcdonald Referring Physician: Bailey Mcdonald Performed By: Mylene Serrano RCS
== END | disposition home or self-care (01) ==
LOC: CVS 07:52
PROVIDERS: PCP Family Medicine; Referring Provider Nurse Practitioner Gerontology; Visit Provider Nurse Practitioner Gerontology
DX: R06.02 Shortness of breath (principal)
CPT/HCPCS: 93306; Q9957; A4216; C8929

== ENCOUNTER 2025-03-29 09:42 | Observation (INO) | payer MEDICARE, BC, SELFPAY ==
[2025-03-29] VITALS (9 sets, daily range): BP systolic 124–153; BP diastolic 44–78; PULSE 64–98; RESP 16–18; TEMP 36.8–37.1; O2SAT 94–99; BMI 29.3; BMI 29.6
[2025-03-29] MEDS: 0.9% Normal Saline (1000mL) 1,000 ML 999 ML IV (10:55)
--- NOTE | 2025-03-29 10:58 | ED.VIS.GI ---
HPI HPI - GI History of Present Illness Chief Complaint: Diarrhea Informant: patient Narrative Narrative: Patient is a 79-year-old female with history of stroke, pulmonary) not currently on any blood thinners) and gallstones with biliary obstruction in 2021. She is presenting with relatively severe diarrhea somewhat so she is having stool incontinence. She states it started at 2 PM on Thursday afternoon, 2 days ago. She states her last bowel movement was around 8 AM. She states initially was brown but is now black and liquid. She denies any blood in it. She notes she has taken Imodium and Pepto-Bismol for her symptoms with no relief. Has some mild nausea/increased indigestion symptoms denies any vomiting. Denies any associate abdominal pain. States she does feel some rumbling in her stomach. Cannot always tell when she is stooling. Denies any fever. Has a sick contacts. Has a history of C. difficile or recent antibiotics. She states her symptoms are worse when she eats. No she has been feeling tired the past few days. Denies any lightheadedness or dizziness. States she had similar symptoms in 2021 and at that time as when she had biliary obstruction. Denies any recent travel. No other complaints or concerns reported at this time. [facility] Medical History Obesity Gallstones with biliary obstruction (07/2021) Deep vein thrombosis of left lower extremity (03/25/18) Stenosis of right carotid artery History of CVA (cerebrovascular accident) (07/17/21) History of pulmonary embolus (PE) (03/25/18) Essential hypertension Anemia Non-smoker CPAP (continuous positive airway pressure) dependence Biliary calculus with obstruction without cholecystitis Abdominal pain Post-menopausal Restless legs Back pain Cholelithiasis Elevated liver enzymes Pulmonary hypertension Asthma Broken jaw Hepatitis B Retinal tear Lung nodule Gout Hyperlipidemia Home Medications ?Medication ?Instructions ?Recorded ?Last Taken ?Type atorvastatin 80 mg tablet 80 mg PO QHS HYPERLIPIDEMIA 09/07/17 03/28/25 History metoprolol tartrate 50 mg tablet 50 mg PO BID BLOOD PRESSURE 09/07/17 03/29/25 History omeprazole 20 mg capsule,delayed 20 mg PO DAILY ACID REFLUX 10/23/21 03/29/25 History release pyridoxine (vitamin B6) 100 mg 100 mg PO DAILY 10/23/21 03/28/25 History tablet aspirin 81 mg tablet,delayed 81 mg PO DAILY 04/25/22 03/28/25 History release (Adult Aspirin Regimen) Oral appliance #1 ea 07/18/22 Unknown Rx montelukast 10 mg tablet 10 mg PO DAILY 10/26/23 03/28/25 History acetaminophen 650 mg 650 mg PO BID 11/17/23 03/29/25 History tablet,extended release (8HR Muscle Aches-Pain) ascorbate calcium (vitamin C) 500 1 g PO DAILY 11/17/23 03/28/25 History mg capsule biotin 10,000 mcg capsule 10,000 mcg PO DAILY 11/17/23 03/28/25 History cholecalciferol (vitamin D3) 10 600 unit PO DAILY 11/17/23 03/28/25 History mcg (400 unit) capsule omega-3 fatty acids 1,000 mg 2,000 mg PO DAILY SUPPLEMENT 11/17/23 03/28/25 History capsule (Fish Oil Concentrate) hydrochlorothiazide 12.5 mg tablet 12.5 mg PO QDAY 11/21/24 03/29/25 History losartan 50 mg tablet 50 mg PO BID 11/21/24 03/29/25 History Allergy/AdvReac Type Severity Reaction Status Date / Time sulfamethoxazole (From Allergy Severe Anaphylaxis Verified 03/29/25 09:43 Bactrim) estrogens, conjugated (From AdvReac Other htn Verified 03/29/25 09:43 Premarin) isosorbide (From Imdur) AdvReac Other, Verified 03/29/25 09:43 severe headache and vomitting levofloxacin (From Levaquin) AdvReac Other Verified 03/29/25 09:43 bilateral tendonitis raloxifene (From Evista) AdvReac Other- HTN Verified 03/29/25 09:43 solifenacin (From Vesicare) AdvReac Other Verified 03/29/25 09:43 trimethoprim (From Bactrim) AdvReac Other Verified 03/29/25 09:43 Family History Brother Hx of heart bypass surgery Heart disease CVA (cerebral vascular accident) Cancer skin Mother Hx of heart bypass surgery Heart disease Hypertension Father Hx of heart bypass surgery Heart disease Hypertension Sister Hx of heart bypass surgery Surgical History History of ERCP (08/12/21) History of cholecystectomy History of cardiac catheterization History of left heart catheterization (06/12/14) History of tubal ligation History of dilation and curettage H/O bilateral cataract extraction skin cancer removed History of bunionectomy H/O adenoidectomy History of tonsillectomy Social History household members: spouse housing: house current occupational status: retired pets and animals: Yes pets and animals: cat(s) Smoking Status: Never smoker second hand exposure: No alcohol intake: never substance use type: does not use ROS ROS ED Constitutional Constitutional ED: Reports other Details: Reports fatigue ; Denies chills or fever(s) Cardiovascular Cardiovascular: Denies chest pain Respiratory/Chest Respiratory/Chest: Denies cough Gastrointestinal Gastrointestinal: Reports diarrhea, nausea and other Details: Reports black sticky stools ; Denies abdominal pain, melena or vomiting Genitourinary Genitourinary ED: Denies dysuria or urinary frequency Musculoskeletal Musculoskeletal: Denies arthralgias or myalgias Integumentary Denies rash Neurologic Neurologic: Denies paresthesias or weakness Psychiatric Psychiatric: Denies anxiety Hematologic/Lymphatic Hematologic/Lymphatic: Denies easy bleeding or easy bruising EXAM Physical Exam Const Vital Signs: 03/29/25 09:43 03/29/25 11:43 Temperature 98.7 F Temperature Source Oral Pulse Rate 79 98 Respiratory Rate 18 16 Blood Pressure 128/45 H 124/78 H Blood Pressure Mean 72 93 Pulse Ox 95 99 Oxygen Delivery Method Room Air Room Air Positive well nourished and well developed General Appearance ED: well developed and NAD; Negative for pallor HEENT Reports moist mucous membranes normocephalic Eyes PERRL Neck supple Resp normal respiratory effort and clear to auscultation bilaterally Cardio regular rate and regular rhythm GI non-tender and non-distended Auscultation: hyperactive bowel sounds Palpation: soft; Negative for tender or guarding Extremity full ROM General Extremety ED: Negative for edema General Extremity: Negative for edema Neuro Sensorium / Orientation: alert, oriented to person, oriented to place and oriented to time Motor Exam: Negative for general weakness Psych mental status grossly normal and thought process normal Skin no wounds General Skin Exam: Negative for jaundice or pallor MDM MDM MDM Narrative Medical decision making narrative: Patient 79-year-old female presenting with copious diarrhea. Her diarrhea is been black and she is concerned about possible GI bleeding. Differential clues not limited to enteritis, colitis, upper GI bleed and encopresis. Patient also check for signs of dehydration and electrolyte derangement as well as symptomatic anemia. Her hemoglobin is actually normal. She has a very mild leukocytosis 11.3 which is nonspecific. She has not any risk factors for C. difficile but will send off her stool studies looking for infectious etiology. She is Hemoccult positive but again this is nonspecific with no sudha blood and could be associated just with her sudha diarrhea. Is given IV fluids. Lab work largely unremarkable however urinalysis does show some mild signs of UTI with 5-10 white blood cells and 2+ bacteria no contamination. She denied any symptoms but was sent for culture. CT of the abdomen pelvis was obtained looking for signs of colitis or other acute intra-abdominal pathology to explain her symptoms. There is questionable findings of cholangitis as well as nonspecific colitis. Is started on Zosyn in the emergency room. Did discuss case with Dr. Ibarra who reviewed the CT as well. Ultrasound is added on. Is agreeable with admission if needed ERCP. Patient be admitted for serial abdominal exams as needed, fluids and monitoring. She is agreeable. Lab Data Attestation: I reviewed the patient's lab results. Labs: Laboratory Results - last 24 hr 03/29/25 03/29/25 10:56 12:32 WBC 11.3 H RBC 4.43 Hgb 13.0 Hct 41.2 MCV 93.0 MCH 29.3 MCHC 31.6 L RDW Std Deviation 46.8 H RDW Coeff of Justin 13.8 Plt Count 216 MPV 9.2 Immature Gran % (Auto) 0.300 Neut % (Auto) 76.5 H Lymph % (Auto) 12.5 L [place] % (Auto) 8.5 Eos % (Auto) 1.6 Baso % (Auto) 0.6 Absolute Neuts (auto) 8.7 H Absolute Lymphs (auto) 1.41 Nucleated RBC % 0 Sodium Cancelled 137 Potassium Cancelled 4.6 Chloride Cancelled 103 Carbon Dioxide Cancelled 23.4 Anion Gap Cancelled 11 BUN Cancelled 20 H Creatinine Cancelled 0.83 Estim Creat Clear Calc Cancelled 53.01 Est GFR (MDRD) Non-Af Cancelled 73 BUN/Creatinine Ratio Cancelled 24.2 H Glucose Cancelled 101 H Lactic Acid 1.1 Calcium Cancelled 8.5 Magnesium Cancelled 1.7 Total Bilirubin Cancelled 0.99 AST Cancelled 46 H ALT Cancelled 17 Alkaline Phosphatase Cancelled 89 Total Protein Cancelled 6.8 Albumin Cancelled 3.9 Globulin Cancelled 2.9 Albumin/Globulin Ratio Cancelled 1.3 Lipase Cancelled 10 L Urine Color Yellow Urine Clarity Sl. Cloudy Urine pH 6.0 Ur Specific [place] 1.005 Urine Protein 15 H Urine Glucose (UA) Normal Urine Ketones Negative Urine Occult Blood 10 H Urine Nitrite Negative Urine Bilirubin Negative Urine Urobilinogen Normal Ur Leukocyte Esterase 500 H Urine RBC 0 SEEN Urine WBC 5-10 SEEN Ur Squamous Epith Cells 0 SEEN Urine Bacteria 2+ Urine Mucus 0 SEEN Radiography Diagnostic Testing: Clinical Impression(s) from Imaging Studies Abdomen/Pelvis CT 03/29/25 11:25 IMPRESSION: 1. Cholecystectomy. Abnormal appearance of the bile ducts. Consider cholangitis. No choledocholithiasis. There is some sludge distally. No mass of the pancreatic head or ampulla. 2. Diarrheal state. Mild hyperenhancement of bowel wall. Qualitative thickening of the sigmoid colon may be from underdistention. A background colitis should be considered. Given a colitis and biliary cholangitis, consider ulcerative colitis. No stricture or obstruction seen. 3. Severe atherosclerosis of the aorta without aneurysm. 4. Benign bilateral simple renal cysts. Bosniak 1. Benign, stable hemorrhagic or proteinaceous type cyst left upper pole. Bosniak 2. No follow-up required. Reading Location: [facility] Gallbladder Ultrasound 03/29/25 12:36 IMPRESSION: 1. Cholecystectomy 2. Dilation of the common bile duct may be related to patient age and cholecystectomy status (reservoir effect). Review of CT showed features of cholangitis. Correlate with laboratory indices; no site of obstruction on the CT of the same day. 3. Diffuse hepatocellular disease. Consider mild fatty infiltration. Reading Location: [facility] Management Discussion w/another healthcare provider: Hospitalist and Pipe Organ Technician Discharge Plan Dx/Rx/DC Orders Clinical Impression: Diarrhea, Abnormal CT of the abdomen Disposition Disposition: Acute Care Hospital [facility] Discharge Date/Time: 03/29/25 16:19
[2025-03-29 11:11] LABS: Hematocrit 41.2 % (37-47); Hemoglobin 13.0 g/dL (12.0-15.0); Immature Granulocytes Count 0.030 X10^3/uL (0.0-0.0); Mean Corp Hgb Conc 31.6 g/dL (32-36); Mean Corpuscular Volume 93.0 fL (81-99); Mean Platelet Vol. 9.2 fl (6.2-12.0); NRBC Flagged by Analyzer 0 % (0-5); Platelet Count 216 K/mm3 (150-450); RBC Distribution Width CV 13.8 % (11.6-14.6); RBC Distribution Width SD 46.8 fl (35.1-43.9); Red Blood Count 4.43 M/mm3 (4.2-5.4); White Blood Count 11.3 K/mm3 (4.4-11.0)
--- NOTE | 2025-03-29 11:25 | CT_ITS ---
PROCEDURE: ABDOMEN/PELVIS W IV CONT ONLY 03/29/2025 REASON FOR EXAM: DIARRHEA TECHNIQUE: Procedure Code: [id number] Modality: CT Procedure: ABDOMEN/PELVIS W IV CONT ONLY Coronal and Sagittal reconstruction series were provided. CONTRAST: Isovue-300 VOLUME: 98 mL One or more dose reduction techniques were used (e.g., Automated exposure control, adjustment of the mA and/or kV according to patient size, use of iterative reconstruction technique. RADIATION DOSE SUMMARY: CTDlvol: 30 mGy DLP: 832 mGycm COMPARISON: August 08, 2021 FINDINGS: Lung bases: Linear scarring right middle lobe and both lower lobes. Mitral valve and aortic valve calcification. Liver: Normal Gallbladder: Cholecystectomy. Mild smooth, central intrahepatic duct dilation. Common hepatic duct is 10.5 mm in gently tapers towards the ampulla. The lange of the bile duct are enhancing and mildly thickened with some subtle stranding present. Mild distention of the cystic duct. No high-density calculus within the gallbladder lumen. There is possibly some sludge distally. Spleen: Normal Pancreas: Normal Adrenals: Normal Kidneys: Small cortical cysts are less than 1 cm bilaterally. These are benign. Conversely, there is a small mass that is possibly solid involving the anterior left upper pole. It measures 1.3 x 0.8 cm. It was not well seen on most recent prior but is likely unchanged. Review of November 05, 2019 exam shows no change. This was hyperdense on a noncontrast the exam at that time. Favor proteinaceous or hemorrhagic cyst. Bladder: Scabies is aggregate related areas of the little night and you reacting to the little shift that they take as there is still think that she got reintroduced unless she skeleton similar Reproductive Organs: Uterus and ovaries are normal. Bowel: Small sliding hiatus hernia. Small bowel is not dilated. A diarrheal state is present involving the nondistended colon. Subtle thickening of the wall of the sigmoid colon with mild hyperemia but no significant stranding, pneumatosis, phlegmon or abscess. Appendix: The appendix is not identified. There is no inflammatory process identified in the right lower quadrant to suggest appendicitis. Lymph nodes: None appear enlarged. Vasculature: Severe atherosclerotic plaque without aneurysm. Peritoneum / Retroperitoneum: No free air, free fluid or mass. Bones: Multilevel degenerative disc disease throughout the lumbar spine particularly the lower lumbar spine. CT/Abdomen/Pelvis W IV Cont ONLY IMPRESSION: 1. Cholecystectomy. Abnormal appearance of the bile ducts. Consider cholangi tis. No choledocholithiasis. There is some sludge distally. No mass of the pancreatic head or ampulla. 2. Diarrheal state. Mild hyperenhancement of bowel wall. Qualitative thicken ing of the sigmoid colon may be from underdistention. A background colitis should be considered. Given a colitis a nd biliary cholangitis, consider ulcerative colitis. No stricture or obstruction seen. 3. Severe atherosclerosis of the aorta without aneurysm. 4. Benign bilateral simple renal cysts. Bosniak 1. Benign, stable hemorrhagi c or proteinaceous type cyst left upper pole. Bosniak 2. No follow-up required. Reading Location: [id number]
[2025-03-29] MEDS: 0.9% Normal Saline (1000mL) 1,000 ML 125 ML IV (12:27)
--- NOTE | 2025-03-29 12:36 | US_ITS ---
PROCEDURE: GALLBLADDER 03/29/2025 REASON FOR EXAM: ABNORMAL CT, PRIOR CHOLECYSTECTOMY TECHNIQUE: Procedure Code: USGB Modality: US Procedure: GALLBLADDER COMPARISON: March 29, 2025 FINDINGS: Liver: Diffuse heterogeneous echotexture. Slight deep. Say in periportal echoes and diminished acoustic penetration. No focal mass. Color flow is present in the hepatopetal portal vein. Gallbladder: Cholecystectomy Common bile duct: Dilated measuring up to 12 mm. Pancreas: Normal Other: Right kidney is 9.5 x 4.3 x 4.6 cm. No collecting system dilation US/Gallbladder IMPRESSION: 1. Cholecystectomy 2. Dilation of the common bile duct may be related to patient age and cholecys tectomy status (reservoir effect). Review of CT showed features of cholangitis. Correlate with laboratory indices; no site of obstruction on the CT of the same day. 3. Diffuse hepatocellular disease. Consider mild fatty infiltration. Reading Location: [id number]
[2025-03-29 12:38] LABS: Mucous, Urine 0 SEEN /hpf (<or=2+); Red Blood Cells-Urine 0 SEEN /hpf (0-5); Squamous Epithelial Cells - UA 0 SEEN /hpf (5-10)
[2025-03-29 12:50] LABS: Color, Urine Yellow (Yellow); Glucose, Dipstick Normal (Normal); Ketone-Dipstick Negative (Negative); Leukocyte Esterase-Dipstick 500 /ul (Negative); Nitrite-Dipstick Negative (Negative); Occult Blood-Urine 10 /ul (Negative); Protein-Dipstick 15 mg/dl (Negative); Specific Gravity, Urine 1.005 (1.002-1.030); Urine Bilirubin Dipstick Negative (Negative)
[2025-03-29 13:04] LABS: Lipase 10 U/L (13-75); Magnesium 1.7 mg/dL (1.5-2.2)
[2025-03-29 13:05] LABS: AST(SGOT) 46 U/L (<=31); Alanine Aminotransfer ALT/SGPT 17 U/L (<=34); Albumin, Serum 3.9 g/dL (3.4-4.8); Alkaline Phosphatase 89 U/L (35-104); Anion Gap 11 (5-15); BUN 20 mg/dL (4-19); BUN/Creat Ratio 24.2 RATIO (10-20); Calcium,Total 8.5 mg/dL (7.6-11.0); Carbon Dioxide 23.4 mmol/L (21.0-32.0); Chloride 103 mmol/L (98-108); Estimated Creatinine Clearance 53.01 ml/min (50-250); Globulin 2.9 g/dL (2.2-4.2); Glucose 101 mg/dL (70-99); Potassium 4.6 mmol/L (3.3-5.1)
[2025-03-29] MEDS: Piperacil/Tazobactam 3.375 GM in 0.9% Normal Saline (50mL MB+) 50 ML IV (13:37)
--- NOTE | 2025-03-29 15:02 | PCM.HP.STD ---
HPI - General General Date of Admission: 03/29/25 HPI Narrative TORSTEN TORRES, is a 79 F who presents to the hospital with diarrhea since Thursday. She says she had an odd ham sandwich that she threw away does not think she can think of that she had. No nausea or vomiting just diarrhea. She has not noticed any blood in her stools. She denies any abdominal pain and no specific right upper quadrant pain. I do feel that the CT of her abdomen and pelvis calling cholangitis is an over read as she has no fevers and there is no elevation in her bilirubin or LFTs at this time we will recheck in the morning. Gallbladder ultrasound is more consistent with chronic postcholecystectomy findings. Fecal occult was positive for blood however given the significant diarrhea she has been having this is to be expected hemoglobin is not anemic therefore will not pursue further. And her fecal occult studies are negative for enteric pathogen's or C. difficile though she does have a positive stool lactoferrin. [facility] Medical History Obesity Gallstones with biliary obstruction (07/2021) Deep vein thrombosis of left lower extremity (03/25/18) Stenosis of right carotid artery History of CVA (cerebrovascular accident) (07/17/21) History of pulmonary embolus (PE) (03/25/18) Essential hypertension Anemia Non-smoker CPAP (continuous positive airway pressure) dependence Biliary calculus with obstruction without cholecystitis Abdominal pain Post-menopausal Restless legs Back pain Cholelithiasis Elevated liver enzymes Pulmonary hypertension Asthma Broken jaw Hepatitis B Retinal tear Lung nodule Gout Hyperlipidemia Home Medications ?Medication ?Instructions ?Recorded ?Last Taken ?Type atorvastatin 80 mg tablet 80 mg PO QHS HYPERLIPIDEMIA 09/07/17 03/28/25 History metoprolol tartrate 50 mg tablet 50 mg PO BID BLOOD PRESSURE 09/07/17 03/29/25 History omeprazole 20 mg capsule,delayed 20 mg PO DAILY ACID REFLUX 10/23/21 03/29/25 History release pyridoxine (vitamin B6) 100 mg 100 mg PO DAILY 10/23/21 03/28/25 History tablet aspirin 81 mg tablet,delayed 81 mg PO DAILY 04/25/22 03/28/25 History release (Adult Aspirin Regimen) Oral appliance #1 ea 07/18/22 Unknown Rx montelukast 10 mg tablet 10 mg PO DAILY 10/26/23 03/28/25 History acetaminophen 650 mg 650 mg PO BID 11/17/23 03/29/25 History tablet,extended release (8HR Muscle Aches-Pain) ascorbate calcium (vitamin C) 500 1 g PO DAILY 11/17/23 03/28/25 History mg capsule biotin 10,000 mcg capsule 10,000 mcg PO DAILY 11/17/23 03/28/25 History cholecalciferol (vitamin D3) 10 600 unit PO DAILY 11/17/23 03/28/25 History mcg (400 unit) capsule omega-3 fatty acids 1,000 mg 2,000 mg PO DAILY SUPPLEMENT 11/17/23 03/28/25 History capsule (Fish Oil Concentrate) hydrochlorothiazide 12.5 mg tablet 12.5 mg PO QDAY 11/21/24 03/29/25 History losartan 50 mg tablet 50 mg PO BID 11/21/24 03/29/25 History Allergy/AdvReac Type Severity Reaction Status Date / Time sulfamethoxazole (From Allergy Severe Anaphylaxis Verified 03/29/25 09:43 Bactrim) estrogens, conjugated (From AdvReac Other htn Verified 03/29/25 09:43 Premarin) isosorbide (From Imdur) AdvReac Other, Verified 03/29/25 09:43 severe headache and vomitting levofloxacin (From Levaquin) AdvReac Other Verified 03/29/25 09:43 bilateral tendonitis raloxifene (From Evista) AdvReac Other- HTN Verified 03/29/25 09:43 solifenacin (From Vesicare) AdvReac Other Verified 03/29/25 09:43 trimethoprim (From Bactrim) AdvReac Other Verified 03/29/25 09:43 Family History Brother Hx of heart bypass surgery Heart disease CVA (cerebral vascular accident) Cancer skin Mother Hx of heart bypass surgery Heart disease Hypertension Father Hx of heart bypass surgery Heart disease Hypertension Sister Hx of heart bypass surgery Surgical History History of ERCP (08/12/21) History of cholecystectomy History of cardiac catheterization History of left heart catheterization (06/12/14) History of tubal ligation History of dilation and curettage H/O bilateral cataract extraction skin cancer removed History of bunionectomy H/O adenoidectomy History of tonsillectomy Social History household members: spouse housing: house current occupational status: retired pets and animals: Yes pets and animals: cat(s) Smoking Status: Never smoker second hand exposure: No alcohol intake: never substance use type: does not use ROS Constitutional Constitutional: Denies chills, fatigue, fever(s) or malaise Eyes Eyes: Denies blurry vision ENT HEENT: Denies headache(s) or nasal discharge Cardiovascular Cardiovascular: Denies chest pain, dyspnea on exertion or syncope Respiratory/Chest Respiratory/Chest: Denies cough, shortness of breath at rest or shortness of breath with exertion Gastrointestinal Gastrointestinal: Reports diarrhea; Denies constipation, nausea or vomiting Genitourinary Genitourinary: Denies dysuria Neurologic Neurologic: Denies focal weakness, numbness or tremor(s) Psychiatric Psychiatric: Denies anxiety or depression Vital Signs Vital Signs Vital Signs: 03/29/25 09:43 03/29/25 11:43 03/29/25 13:51 Temperature 98.7 F Temperature Source Oral Pulse Rate 79 98 67 Respiratory Rate 18 16 Blood Pressure 128/45 H 124/78 H 153/56 H Blood Pressure Mean 72 93 88 Pulse Ox 95 99 96 Oxygen Delivery Method Room Air Room Air Room Air 03/29/25 14:54 Temperature Temperature Source Pulse Rate 66 Respiratory Rate Blood Pressure 136/44 H Blood Pressure Mean 74 Pulse Ox 98 Oxygen Delivery Method Room Air Weight Weight: 160 lb 6.4 oz Body Mass Index (BMI) 29.3 Physical Exam Narrative General: Alert, Oriented x3, Cooperative, No apparent distress HEENT: Atraumatic, PERRLA, EOMI, Normocephalic Oral: Dry mucosa Neck: Supple, No JVD Lungs: Diminished, Normal air movement, No rhonchi, No wheeze, No rales Cardiovascular: Regular rate, Regular Rhythm, Normal S1, Normal S2, No murmurs Abdomen: Soft, Non Tender, Non-Distended, No Hepato-splenomegaly Extremities: No edema, Capillary Refill Less than 3 Seconds Skin: No rashes, No breakdown Musculoskeletal: No Tenderness to Palpation of Joints or Extremities Neurological: No focal neurological deficits, moves all extremities Psych/Mental Status: Normal Affect, Appropriate Results Lab / Micro Data 03/29/25 10:56 03/29/25 12:32 Labs: Laboratory Results - last 24 hr 03/29/25 10:56: WBC 11.3 H, RBC 4.43, Hgb 13.0, Hct 41.2, MCV 93.0, MCH 29.3, MCHC 31.6 L, RDW Std Deviation 46.8 H, RDW Coeff of Justin 13.8, Plt Count 216, MPV 9.2, Immature Gran % (Auto) 0.300, Neut % (Auto) 76.5 H, Lymph % (Auto) 12.5 L, [place] % (Auto) 8.5, Eos % (Auto) 1.6, Baso % (Auto) 0.6, Absolute Neuts (auto) 8.7 H, Absolute Lymphs (auto) 1.41, Nucleated RBC % 0, Sodium Cancelled, Potassium Cancelled, Chloride Cancelled, Carbon Dioxide Cancelled, Anion Gap Cancelled, BUN Cancelled, Creatinine Cancelled, Estim Creat Clear Calc Cancelled, Est GFR (MDRD) Non-Af Cancelled, BUN/Creatinine Ratio Cancelled, Glucose Cancelled, Lactic Acid 1.1, Calcium Cancelled, Magnesium Cancelled, Total Bilirubin Cancelled, AST Cancelled, ALT Cancelled, Alkaline Phosphatase Cancelled, Total Protein Cancelled, Albumin Cancelled, Globulin Cancelled, Albumin/Globulin Ratio Cancelled, Lipase Cancelled 03/29/25 12:32: Sodium 137, Potassium 4.6, Chloride 103, Carbon Dioxide 23.4, Anion Gap 11, BUN 20 H, Creatinine 0.83, Estim Creat Clear Calc 53.01, Est GFR (MDRD) Non-Af 73, BUN/Creatinine Ratio 24.2 H, Glucose 101 H, Calcium 8.5, Magnesium 1.7, Total Bilirubin 0.99, AST 46 H, ALT 17, Alkaline Phosphatase 89, Total Protein 6.8, Albumin 3.9, Globulin 2.9, Albumin/Globulin Ratio 1.3, Lipase 10 L, Urine Color Yellow, Urine Clarity Sl. Cloudy, Urine pH 6.0, Ur Specific [place] 1.005, Urine Protein 15 H, Urine Glucose (UA) Normal, Urine Ketones Negative, Urine Occult Blood 10 H, Urine Nitrite Negative, Urine Bilirubin Negative, Urine Urobilinogen Normal, Ur Leukocyte Esterase 500 H, Urine RBC 0 SEEN, Urine WBC 5-10 SEEN, Ur Squamous Epith Cells 0 SEEN, Urine Bacteria 2+, Urine Mucus 0 SEEN Micro: Microbiology 03/29/25 10:56 Stool Stool Lactoferrin - Final 03/29/25 10:56 Stool Clostridioides difficile (PCR) - Final 03/29/25 10:56 Stool Stool Occult Blood (DESIRE) - Final Occult Blood Positive Imaging Radiology Impression Abdomen/Pelvis CT 03/29/25 11:25 IMPRESSION: 1. Cholecystectomy. Abnormal appearance of the bile ducts. Consider cholangitis. No choledocholithiasis. There is some sludge distally. No mass of the pancreatic head or ampulla. 2. Diarrheal state. Mild hyperenhancement of bowel wall. Qualitative thickening of the sigmoid colon may be from underdistention. A background colitis should be considered. Given a colitis and biliary cholangitis, consider ulcerative colitis. No stricture or obstruction seen. 3. Severe atherosclerosis of the aorta without aneurysm. 4. Benign bilateral simple renal cysts. Bosniak 1. Benign, stable hemorrhagic or proteinaceous type cyst left upper pole. Bosniak 2. No follow-up required. Reading Location: [facility] Gallbladder Ultrasound 03/29/25 12:36 IMPRESSION: 1. Cholecystectomy 2. Dilation of the common bile duct may be related to patient age and cholecystectomy status (reservoir effect). Review of CT showed features of cholangitis. Correlate with laboratory indices; no site of obstruction on the CT of the same day. 3. Diffuse hepatocellular disease. Consider mild fatty infiltration. Reading Location: [facility] Assessment & Plan Assessment/Plan (1) Diarrhea: PLAN: Plan 1. Diarrhea ? This is likely viral ? Will provide for full liquid diet and IV fluids that she does not have significant findings of dehydration on lab work ? Will recheck a CMP and a CBC in the morning ? She did have a benign stricture leading to obstructive symptoms in 2021 however bilirubin and LFTs are currently normal ? She did receive a dose of Zosyn in the emergency room, will discontinue this on admission since there does not appear to be a solid indication at this time. 2. Essential HTN/HLD/history of CVA ? Continue with Lipitor ? Continue with her blood pressure medications ? Monitor make adjustments as necessary ? Continue with aspirin 3. GERD ? Stable ? Continue with PPI DVT: Lovenox 75 minutes was spent on direct patient care, including documentation as well as chart review and collaboration with colleagues Charges/Coding Visit Charges Inpatient E&M: 08690 Init Hosp L3 D/C Safety Score for UGIB Assessment [place] Bleeding Score (GBS): Stratifies upper GI bleeding patients who are low-risk and candidates for outpatient management. Hemoglobin, BUN, Recent Vital Signs: Hgb 13.0 g/dL (12.0-15.0) 03/29/25 10:56 BUN 20 mg/dL (4-19) H 03/29/25 12:32 Pulse Rate 66 Blood Pressure 136/44 Score Interpretation: Score of 0: A GBS of 0 is a ?Low Risk? GI bleed, and is highly sensitive (99.6% in a 2007 retrospective study) for predicting which patients did not require any ?medical intervention?: blood transfusion, endoscopy, or surgery. This was confirmed in a 2009 Lancet study where patients with a score of 0 were actually discharged and had no GI bleeding mortality at 6 month followup Score above 0: A GBS greater than zero suggests a ?High Risk? GI bleed that is likely to require ?medical intervention?: transfusion, endoscopy, or surgery. A higher GBS also correlated with a higher likelihood of needing intervention Scores >/= 6 are associated with >50% risk of needing intervention D/C Safety Score for LGIB Assessment Assessment Tool: Readmission and adverse event risk in patients with acute lower GI bleeding. Hemoglobin and Recent Vital Signs: Hgb 13.0 g/dL (12.0-15.0) 03/29/25 10:56 Pulse Rate 66 03/29/25 14:54 Blood Pressure 136/44 03/29/25 14:54 Score Interpretation: Probability Percentage of safe discharge (absence of rebleeding, blood transfusion, therapeutic intervention, 28 day readmission, or ) Score of 8 or below: Consider discharge, with appropriate precautions. Score of 9 or above: Discharge NOT recommended. Consider admission with further workup and resuscitation as necessary.
--- NOTE | 2025-03-29 15:11 | CASEMGMT ---
Care Management Face to Face with patient for initial transition planning/care coordination assessment in the ED.? This law writer introduced self and role at [facility]. Patient alert and oriented. Patient willing to participate in assessment and is able to answer all questions appropriately.? Care providers, pharmacy, and demographics verified. Admitting Diagnosis: diarrhea Other diagnosis history: ?stroke, gallstones PCP: ?her physician retired, patient interested in new doctor.? [facility] provider list given Specialists: ?Vinay Preferred Pharmacy:? [facility] Insurance: ?Medicare Prescription Benefit: ?yes Living Will/HPOA: patient has both completed, asked to bring in copy when able LNOK: ? Living Arrangements: ?patient lives with in one story home, 2 steps to enter.?? Independent with ADLs and IADLs. Does note concern going down basement stairs for laundry, becomes SOB Transportation: patient drives DME: ?blood pressure cuff, pulse ox, cane, wheelchair HHC: ?none SNF/Rehab: ?none Community Resources: none Behavioral Health History: none Patient goals: Patient wishes to discharge home, denies need for home health care at this time. Patient denies any further needs or concerns at this time. Disposition Plan: admission to acute; RN CM/SW to follow for discharge planning needs that may arise. Paige Ortiz, TUG CAPTAIN, POWER MANAGER
--- NOTE | 2025-03-29 18:14 | EX.PCM.CON.G ---
HPI Consult Data Date of Consult: 03/29/25 HPI Narrative Reason for Consultation: Abnormal imaging HPI Narrative: TORSTEN TORRES, is a 79-year-old female with a history of stroke (not currently on blood thinners) and gallstones with biliary obstruction in 2021, presenting with relatively severe diarrhea and stool incontinence. Her?symptoms started 2 days ago (Thursday at 2 PM). Last bowel movement at 8 AM today. Stool initially brown, now black and liquid. Denies visible blood. Took Imodium and Pepto-Bismol without relief. Reports mild nausea/increased indigestion but denies vomiting. Denies abdominal pain, notes stomach rumbling. Reports inability to always tell when she is stooling. Denies fever. Denies sick contacts, history of C. difficile, or recent antibiotic use. Symptoms worse with eating. Reports fatigue for the past few days. Denies lightheadedness or dizziness. Notes similar symptoms in 2021 during a biliary obstruction episode. Denies recent travel. No other complaints. Abdomen/Pelvis CT (03/29/25 11:25 AM): Impression 1:?Status post cholecystectomy. Abnormal appearance of the bile ducts; consider cholangitis. Sludge noted distally, but no choledocholithiasis or mass in the pancreatic head or ampulla. Impression 2:?Diarrheal state with mild hyperenhancement of bowel wall. Qualitative thickening of the sigmoid colon (may be underdistention); consider background colitis. Given colitis and biliary cholangitis, ulcerative colitis should be considered. No stricture or obstruction.] [facility] Medical History Obesity Gallstones with biliary obstruction (07/2021) Deep vein thrombosis of left lower extremity (03/25/18) Stenosis of right carotid artery History of CVA (cerebrovascular accident) (07/17/21) History of pulmonary embolus (PE) (03/25/18) Essential hypertension Anemia Non-smoker CPAP (continuous positive airway pressure) dependence Biliary calculus with obstruction without cholecystitis Abdominal pain Post-menopausal Restless legs Back pain Cholelithiasis Elevated liver enzymes Pulmonary hypertension Asthma Broken jaw Hepatitis B Retinal tear Lung nodule Gout Hyperlipidemia Home Medications ?Medication ?Instructions ?Recorded ?Last Taken ?Type atorvastatin 80 mg tablet 80 mg PO QHS HYPERLIPIDEMIA 09/07/17 03/28/25 History metoprolol tartrate 50 mg tablet 50 mg PO BID BLOOD PRESSURE 09/07/17 03/29/25 History omeprazole 20 mg capsule,delayed 20 mg PO DAILY ACID REFLUX 10/23/21 03/29/25 History release pyridoxine (vitamin B6) 100 mg 100 mg PO DAILY 10/23/21 03/28/25 History tablet aspirin 81 mg tablet,delayed 81 mg PO DAILY 04/25/22 03/28/25 History release (Adult Aspirin Regimen) Oral appliance #1 ea 07/18/22 Unknown Rx montelukast 10 mg tablet 10 mg PO DAILY 10/26/23 03/28/25 History acetaminophen 650 mg 650 mg PO BID 11/17/23 03/29/25 History tablet,extended release (8HR Muscle Aches-Pain) ascorbate calcium (vitamin C) 500 1 g PO DAILY 11/17/23 03/28/25 History mg capsule biotin 10,000 mcg capsule 10,000 mcg PO DAILY 11/17/23 03/28/25 History cholecalciferol (vitamin D3) 10 600 unit PO DAILY 11/17/23 03/28/25 History mcg (400 unit) capsule omega-3 fatty acids 1,000 mg 2,000 mg PO DAILY SUPPLEMENT 11/17/23 03/28/25 History capsule (Fish Oil Concentrate) hydrochlorothiazide 12.5 mg tablet 12.5 mg PO QDAY 11/21/24 03/29/25 History losartan 50 mg tablet 50 mg PO BID 11/21/24 03/29/25 History Allergy/AdvReac Type Severity Reaction Status Date / Time sulfamethoxazole (From Allergy Severe Anaphylaxis Verified 03/29/25 09:43 Bactrim) estrogens, conjugated (From AdvReac Other htn Verified 03/29/25 09:43 Premarin) isosorbide (From Imdur) AdvReac Other, Verified 03/29/25 09:43 severe headache and vomitting levofloxacin (From Levaquin) AdvReac Other Verified 03/29/25 09:43 bilateral tendonitis raloxifene (From Evista) AdvReac Other- HTN Verified 03/29/25 09:43 solifenacin (From Vesicare) AdvReac Other Verified 03/29/25 09:43 trimethoprim (From Bactrim) AdvReac Other Verified 03/29/25 09:43 Family History Brother Hx of heart bypass surgery Heart disease CVA (cerebral vascular accident) Cancer skin Mother Hx of heart bypass surgery Heart disease Hypertension Father Hx of heart bypass surgery Heart disease Hypertension Sister Hx of heart bypass surgery Surgical History History of ERCP (08/12/21) History of cholecystectomy History of cardiac catheterization History of left heart catheterization (06/12/14) History of tubal ligation History of dilation and curettage H/O bilateral cataract extraction skin cancer removed History of bunionectomy H/O adenoidectomy History of tonsillectomy Social History household members: spouse housing: house current occupational status: retired pets and animals: Yes pets and animals: cat(s) Smoking Status: Never smoker second hand exposure: No alcohol intake: never substance use type: does not use ROS Constitutional Constitutional: Denies fatigue, fever(s), poor appetite, weight gain or weight loss Gastrointestinal Gastrointestinal: Denies belching, bloating, change in bowel habits, change in stool character, chewing difficulty, coffee ground emesis, constipation, cramping, diarrhea, dyspepsia, dysphagia, early satiety, excessive flatus, fecal incontinence, heartburn, hematemesis, hematochezia, hemorrhoids, loose stools, melena, nausea, odynophagia, rectal bleeding, tenesmus, vomiting or weight changes Physical Exam Const alert, oriented x3, no apparent distress and healthy appearing General Appearance: cooperative GI normal to inspection, nondistended, normoactive bowel sounds, soft to palpation, non-tender and non-distended Percussion: normal to percussion Rectal Exam: deferred Lab / Micro Data 03/29/25 10:56 03/29/25 12:32 Labs: Laboratory Results - last 24 hr 03/29/25 10:56: WBC 11.3 H, RBC 4.43, Hgb 13.0, Hct 41.2, MCV 93.0, MCH 29.3, MCHC 31.6 L, RDW Std Deviation 46.8 H, RDW Coeff of Justin 13.8, Plt Count 216, MPV 9.2, Immature Gran % (Auto) 0.300, Neut % (Auto) 76.5 H, Lymph % (Auto) 12.5 L, Elmore % (Auto) 8.5, Eos % (Auto) 1.6, Baso % (Auto) 0.6, Absolute Neuts (auto) 8.7 H, Absolute Lymphs (auto) 1.41, Nucleated RBC % 0, Sodium Cancelled, Potassium Cancelled, Chloride Cancelled, Carbon Dioxide Cancelled, Anion Gap Cancelled, BUN Cancelled, Creatinine Cancelled, Estim Creat Clear Calc Cancelled, Est GFR (MDRD) Non-Af Cancelled, BUN/Creatinine Ratio Cancelled, Glucose Cancelled, Lactic Acid 1.1, Calcium Cancelled, Magnesium Cancelled, Total Bilirubin Cancelled, AST Cancelled, ALT Cancelled, Alkaline Phosphatase Cancelled, Total Protein Cancelled, Albumin Cancelled, Globulin Cancelled, Albumin/Globulin Ratio Cancelled, Lipase Cancelled 03/29/25 12:32: Sodium 137, Potassium 4.6, Chloride 103, Carbon Dioxide 23.4, Anion Gap 11, BUN 20 H, Creatinine 0.83, Estim Creat Clear Calc 53.01, Est GFR (MDRD) Non-Af 73, BUN/Creatinine Ratio 24.2 H, Glucose 101 H, Calcium 8.5, Magnesium 1.7, Total Bilirubin 0.99, AST 46 H, ALT 17, Alkaline Phosphatase 89, Total Protein 6.8, Albumin 3.9, Globulin 2.9, Albumin/Globulin Ratio 1.3, Lipase 10 L, Urine Color Yellow, Urine Clarity Sl. Cloudy, Urine pH 6.0, Ur Specific [place] 1.005, Urine Protein 15 H, Urine Glucose (UA) Normal, Urine Ketones Negative, Urine Occult Blood 10 H, Urine Nitrite Negative, Urine Bilirubin Negative, Urine Urobilinogen Normal, Ur Leukocyte Esterase 500 H, Urine RBC 0 SEEN, Urine WBC 5-10 SEEN, Ur Squamous Epith Cells 0 SEEN, Urine Bacteria 2+, Urine Mucus 0 SEEN Micro: Microbiology 03/29/25 10:56 Stool Stool Lactoferrin - Final 03/29/25 10:56 Stool Enteric Bacteriology - Final 03/29/25 10:56 Stool Clostridioides difficile (PCR) - Final 03/29/25 10:56 Stool Stool Occult Blood (DESIRE) - Final Occult Blood Positive Imaging Radiology Impression Abdomen/Pelvis CT 03/29/25 11:25 IMPRESSION: 1. Cholecystectomy. Abnormal appearance of the bile ducts. Consider cholangitis. No choledocholithiasis. There is some sludge distally. No mass of the pancreatic head or ampulla. 2. Diarrheal state. Mild hyperenhancement of bowel wall. Qualitative thickening of the sigmoid colon may be from underdistention. A background colitis should be considered. Given a colitis and biliary cholangitis, consider ulcerative colitis. No stricture or obstruction seen. 3. Severe atherosclerosis of the aorta without aneurysm. 4. Benign bilateral simple renal cysts. Bosniak 1. Benign, stable hemorrhagic or proteinaceous type cyst left upper pole. Bosniak 2. No follow-up required. Reading Location: [facility] Gallbladder Ultrasound 03/29/25 12:36 IMPRESSION: 1. Cholecystectomy 2. Dilation of the common bile duct may be related to patient age and cholecystectomy status (reservoir effect). Review of CT showed features of cholangitis. Correlate with laboratory indices; no site of obstruction on the CT of the same day. 3. Diffuse hepatocellular disease. Consider mild fatty infiltration. Reading Location: [facility] Assessment & Plan Assessment/Plan (1) Abnormal CT of the abdomen: (2) Diarrhea: PLAN: 79-year-old female with acute, severe, black, liquid diarrhea and stool incontinence, associated with fatigue, mild nausea, and rumbling but no pain, fever, or dizziness. Primary Concerns: Severe, potentially?melenic?diarrhea: The black, liquid description is concerning for upper gastrointestinal bleeding. However hemoglobin is normal at 13. Dehydration/Electrolyte imbalance: I suspect that she does have some dehydration due to severe diarrhea and fatigue. Cholangitis/Biliary abnormality: CT scan shows abnormal bile ducts, sludge, and recommends considering cholangitis, despite normal LFTs. Her bile ducts do look inflamed which brings a possibility of primary sclerosing cholangitis.It is possible to have imaging findings suggestive of cholangitis or primary sclerosing cholangitis despite having normal Liver Function Tests . While abnormal LFTs (such as elevated alkaline phosphatase or bilirubin) are common in PSC and other biliary conditions, a subset of patients may present with normal laboratory results, especially in the early or asymptomatic stages of the disease. The imaging findings, in this case, are critical for diagnosis and management. The inflamed appearance of the bile ducts and the presence of sludge strongly point to a biliary issue requiring further investigation Colitis: CT findings of bowel wall hyperenhancement and potential sigmoid thickening raise suspicion for colitis (e.g., infectious, inflammatory bowel disease like ulcerative colitis).Bowel wall thickening and hyperenhancement are common CT findings in patients with colitis. These findings can be caused by various conditions, including: -? Inflammatory Bowel Disease (IBD):?Ulcerative colitis typically involves the rectum and extends proximally in a continuous manner, while Crohn's disease often presents with skip lesions (discontinuous areas of inflammation) and can involve the small and/or large bowel. PSC is often associated with IBD, particularly ulcerative colitis. - Infectious colitis:?This can also cause significant bowel wall thickening and usually requires stool analysis for definitive diagnosis. - Ischemic colitis:?This is another possibility, especially in older patients or those with vascular risk factors. Possible GI bleed source: Given history of stroke and current presentation, investigation is needed. Plan: Diagnostic: Immediate lab work:C-reactive protein/ESR, ANCA, LEENA, IgG4, amylase lipase, IBD SGI stool studies (CMV, culture, O&P), fecal calprotectin/lactoferrin. Further imaging/procedures: Potential esophagogastroduodenoscopy (EGD) and colonoscopy to investigate source of black stool and evaluate colitis/cholangitis connection. Consider MRCP Therapeutic: IV fluids for rehydration and electrolyte repletion. Strict I&O monitoring. Hold Pepto-Bismol as it can blacken stools and obscure bleeding diagnostics; Imodium use already ineffective. Charges/Coding Visit Charges Inpatient E&M: 39166 Init Hosp L3
--- OUTSIDE RECORDS SUMMARY | 2025-03-29 19:11 | XMS RPT_ITS | CCD ---
Author Organization [facility] Care Team Providers Care Loans Consultant Name Role Phone Chevy Matthew Primary Care Provider CHEVY MATTHEW Primary Care Unavailable ALI, NOAMAN Referring Unavailable CHEVY MATTHEW Primary Care Unavailable TIP, BELEM Referring Unavailable CHEVY MATTHEW Primary Care Unavailable TIP, BELEM Referring Unavailable CHEVY MATTHEW Primary Care Unavailable BEEAMY PriceMANUEL Attending Unavailable TIP, BELEM Referring Unavailable CHEVY MATTHEW Primary Care Unavailable BELEM WHELAN Attending Unavailable Dr. Chevy Matthew Primary Care Provider Dr. Chevy Matthew Referring Provider Mila GAN, JEWEL BEARING POLISHER-C Flavia Attending Provider Dr. Chevy Matthew Primary Care Provider Dr. Chevy Matthew Referring Provider EVANGELIST Mcdonald NPC Bailey Attending Provider Dr. Esau Ghotra Attending Provider [phone] Ramin Whitney DO Primary Care Provider [phone] Ramin Whitney DO Primary Care Provider Chevy Matthew DO Primary Care Provider Dr. Chevy Matthew DO Primary Care Provider Dr. Chevy Matthew DO Referring Provider Bailey Mohr Attending Provider Harry BLANCACBailey Referring Provider Dr. Bernardino Mclean MD Attending Provider Chevy Matthew Referring Unavailable Chevy Matthew Primary Care Unavailable Harry GAN, Bailey Attending Unavailable Chevy Matthew Primary Care Unavailable Harry GAN, Bailey Attending Unavailable Chevy Matthew Primary Care Unavailable Bernardino Mclean Attending Unavailable Venkateshlin, Chevy Primary Care Unavailable Harry GAN, Bailey Referring Unavailable Harry JEWEL BEARING POLISHER, Bailey Attending Unavailable PETRILLA, RAMIN Primary Care Unavailable PETRILLA, RAMIN Primary Care Unavailable PETRILLA, RAMIN Attending Unavailable PETRILLA, RAMIN Primary Care Unavailable PETRILLA, RAMIN Attending Unavailable PETRILLA, RAMIN Primary Care Unavailable Allergies Allergy Classification Reported Allergen(s) Allergy Type Date of Onset Reaction(s) Facility (14 sources) Estrogens, Conjugated ([facility]); Translations: [CONJUGATED ESTROGENS] Drug Allergy 03-13-20 11 Intolerance [place], [place] (2 sources) Isosorbide Dinitrate Drug Allergy 11-29-19 15 Other (See Comments) [place] (20 sources) levoFLOXacin Drug Allergy 11-29-19 15 Other (See Comments) [place] (20 sources) Raloxifene Drug Allergy 08-03-19 09 Other (See Comments) [place] (20 sources) Sulfamethoxazole / Trimethoprim Drug Allergy 11-29-19 15 Anaphylaxis, Other (See Comments) [place] (2 sources) Estrogens, Conjugated ([facility]); Translations: [estrogens, conjugated] Drug Allergy 09-12-19 21 [facility] Work Phone: (5 sources) Isosorbide Drug Allergy 09-12-19 21 Other, severe headache and vomitting [facility] Work Phone: (20 sources) levoFLOXacin; Translations: [LEVOFLOXACIN] Drug Allergy 09-07-19 10 Other bilateral tendonitis [facility] Work Phone: (20 sources) Solifenacin; Translations: [SOLIFENACIN] Drug Allergy 02-24-20 19 Other: See Comments [facility] Work Phone: (13 sources) Sulfamethoxazole; Translations: [SULFAMETHOXAZOLE] Drug Allergy 03-03-20 14 Anaphylaxis [facility] Work Phone: (20 sources) Trimethoprim; Translations: [TRIMETHOPRIM] Drug Allergy 02-24-20 19 Other: See Comments [facility] Work Phone: (20 sources) Indomethacin; Translations: [INDOMETHACIN] Drug Allergy 09-07-19 10 Vomiting [facility] Work Phone: (8 sources) Isosorbide; Translations: [ISOSORBIDE MONONITRATE] Drug Allergy 09-07-19 10 [facility] Work Phone: (20 sources) Raloxifene; Translations: [RALOXIFENE HCL] Drug Allergy 08-03-19 09 [facility] Work Phone: (7 sources) environmental [Other] Propensity to adverse reactions 08-03-19 [facility] Work Phone: (20 sources) OTHER; Translations: [OTHER] Propensity to adverse reactions (disorder) 08-03-19 09 [facility] Repository (20 sources) Estrogens, Conjugated ([facility]) Drug Allergy 09-12-19 21 [facility] [place] (20 sources) Isosorbide Drug Allergy 09-07-[address] [facility] (20 sources) Isosorbide Dinitrate Drug Allergy 09-07-[address] [facility] (20 sources) Sulfamethoxazole Allergy to substance 03-03-[address] [facility] (20 sources) Conjugated Estrogens Allergy to substance 03-13-[address] [facility] (1 source) Isosorbide Drug Allergy 11-22-19 25 [facility] Repository (1 source) levoFLOXacin Drug Allergy 11-22-19 25 [facility] Repository (1 source) Raloxifene Drug Allergy 11-22-19 25 [facility] Repository (1 source) Solifenacin Drug Allergy 11-22-19 25 [facility] Repository (1 source) Sulfamethoxazole Drug Allergy 11-22-19 25 [facility] Repository (1 source) Trimethoprim Drug Allergy 11-22-19 25 [facility] Repository Medications Current Medications Medication Drug Class(es) Dates Sig (Normalized) Sig (Original) 8 hr acetaminophen 650 mg extended release oral tablet (18 sources) Start: 11-17-2023 take 1 tablet by mouth twice daily Acetaminophen (8hr Muscle Aches-Pain) 650 mg tablet extended release Active 650 mg PO TWICE A DAY November 17, 2023 12:00am Start: 12-29-2022 End: 03-29-2023 take 1 tablet by mouth twice daily acetaminophen (Tylenol 8 Hour Arthritis Pain) 650 MG ER tablet Indications: Chronic bilateral low back pain without sciatica Take 1 tablet (650 mg) by mouth 2 times daily. Do not crush, chew, or split. 60 tablet 2 12/29/2022 03/29/2023 Active take 1 tablet by meghann th every eight hours as needed for pain acetaminophen (Tylenol 8 Hour) 650 MG ER tablet Take 650 mg by mouth every 8 hours as needed for mild pain (1-3). Do not crush, chew, or split. Active [id number] 200 actuat albuterol 0.09 mg/actuat metered dose inhaler (10 sources) beta2-Adrenergic Agonist Start: 01-14-2021 take 2 puff(s) by inhalation every four hours as needed for wheezing VENTOLIN HFA 108 (90 Base) MCG/ACT inhaler 2 PUFF INHALATION EVERY 4 HOURS NEEDED FOR SHORTNESS OF BREATH OR WHEEZING ADMINISTER WITH SPACER 0 01/14/2021 Active Start: 08-29-2020 albuterol sulf ate HFA 108 (90 Base) MCG/ACT inhaler Inhale into the lungs 0 08/29/2020 Active Start: 08-29-2020 End: 09-18-2022 Albuterol Sulfate 90 mcg/act uation HFA aerosol inhaler Discontinued 2 NMA INHALATION Q4H as needed for shortness of breath or wheezing 8.5 6 January 14, 2021 2:44pm September 18, 2022 10:55am administer with spacer Start: 08-29-2020 End: 09-18-2022 take 1 puff(s) by inhalation every four hours Albuterol Sulfate Discontinued 2 PUFF INHALATION Q4H 8.5 January 14, 2021 2:44pm September 18, 2022 10:55am administer with spacer Ascorbate Calcium (Vitamin C) (2 sources) Start: 10-23-2021 take 500 mg by mouth once daily Ascorbate Calcium (Vitamin C) Active 500 MG PO DAILY October 23, 2021 12:00am Start: 10-23-2021 take 500 mg by mouth once ben y Ascorbate Calcium (Vitamin C) Active 500 MG PO DAILY October 22, 2021 11:00pm Ascorbate Calcium (Vitamin C) 500 mg capsule (4 sources) Start: 11-17-2023 take 1 g by mouth once daily Ascorbate Calcium (Vitamin C) 500 mg capsule Active 1 g PO DAILY November 17, 2023 10:50am Start: 10-23-2021 End: 11-17-2023 take 1 capsule by mouth once daily Ascorbate Calcium (Vitamin C) 500 mg capsule Discontinued 500 mg PO DAILY October 23, 2021 12:00am November 17, 2023 10:53am ascorbic acid 1000 mg oral tablet (20 sources) Vitamin C take 1 tablet by mouth once daily Ascorbic Acid (vitamin C) 1000 MG tablet Take 1,000 mg by mouth daily. Active aspirin 81 mg delayed release oral tablet (20 sources) Platelet Aggregation Inhibitor, Nonsteroidal Anti-inflammatory Drug Start: 04-25-2022 take 1 tablet by mouth once daily Aspirin (Adult Aspirin Regimen) 81 mg tablet,delayed release (DR/EC) Active 81 mg PO DAILY April 25, 2022 1:00am Start: 08-02-2008 End: 09-18-2021 take 1 tablet by mouth once daily Aspirin 81 MG tablet,delayed release (DR/EC) Discontinued 81 mg PO DAILY September 07, 2017 12:00am September 18, 2021 9:47am ANTIPLATELET anticoagulant take 1 tablet by meghann th once daily aspirin 81 MG tablet Take 81 mg by mouth daily 0 Active Comment on above: Take one (1) tablet daily. atorvastatin 80 mg oral tablet (20 sources) HMG-CoA Reductase Inhibitor Start: 010 End: 025 take 1 tablet by mouth once daily atorvastatin (Lipitor) 80 MG tablet Indications: Hypercholesterolemia Take 1 tablet (80 mg) by mouth daily. 90 tablet 1 01/13/2025 Active Comment on above: one tablet daily biotin 10 mg oral capsule (16 sources) Start: 024 take 1 capsule by mouth once daily Biotin 10,000 mcg capsule Active 51310 ug PO DAILY November 17, 2023 12:00am biotin 03666 MCG tablet Take by mouth. Active cholecalciferol 0.01 mg oral capsule (20 sources) Vitamin D Start: 11-17-2023 take 1 capsule by mouth once daily Cholecalciferol (Vitamin D3) 10 mcg (400 unit) capsule Active 600 U PO DAILY November 17, 2023 10:50am Start: 10-23-2021 End: 11-17-2023 take 1 capsule by mouth once daily Cholecalciferol (Vitamin D3) 10 mcg (400 unit) capsule Discontinued 10 ug PO DAILY October 23, 2021 12:00am November 17, 2023 10:53am Start: 07-17-2021 End: 09-18-2021 take 1 capsule by mouth once daily Cholecalciferol (Vitamin D3) 25 mcg (1,000 unit) Capsule Discontinued 25 ug PO DAILY July 17, 2021 1:00am September 18, 2021 9:47am SUPPLEMENT take 600 [IU] by meghann th once daily Cholecalciferol (D3 ADULT PO) Take 600 Units by mouth daily. Active take 1000 [IU] by mo uth once daily Cholecalciferol (D3 ADULT PO) Take 1,000 Units by mouth daily. Active take 600 [IU] by meghann th once daily Cholecalciferol (D3 ADULT PO) Take 600 Units by mouth daily. 0 Active vitamin D (RUSLAN CALCIFEROL) 25 MCG (1000 UT) TABS tablet Take 1,000 Units by mouth daily 0 Active docosahexaenoic acid 120 mg / eicosapentaenoic acid 180 mg oral capsule (20 sources) omega-3 (Fish Oi l) 1000 MG capsule Take 2,000 mg by mouth daily. 2,000 Active omega-3 (Fish Oi l) 1000 MG capsule Take 1,200 mg by mouth daily. 2,000 Active omega-3 (Fish Oi l) 1000 MG capsule Take by mouth. 0 Active hydroCHLOROthiazide 12.5 mg oral tablet (10 sources) Thiazide Diuretic Start: 10-12-2024 End: 07-12-2025 take 1 tablet by mouth once daily hydroCHLOROthiazide 12.5 MG tablet Take 1 tablet (12.5 mg) by mouth daily. 90 tablet 1 01/13/2025 07/12/2025 Active Start: 08-17-2024 End: 09-16-2024 take 1 tablet by mouth once daily hydroCHLOROthiazide 12.5 MG tablet Take 1 tablet (12.5 mg) by mouth daily. 30 tablet 1 08/17/2024 09/16/2024 Active losartan potassium 50 mg oral tablet (18 sources) Angiotensin 2 Receptor Lizette Start: 08-17-2024 losartan (Cozaar) 50 MG tablet Increase to 1 tablet twice a day 180 tablet 3 08/17/2024 Active Start: 08-01-2024 End: 08-01-2025 take 1 tablet by mouth once daily losartan (Cozaar) 50 MG tablet Take 1 tablet (50 mg) by mouth daily. 90 tablet 3 08/01/2024 08/17/2024 Discontinued Start: 07-25-2024 End: 07-25-2025 take 1 tablet by mouth once daily Losartan 25 mg tablet Discontinued 25 mg PO daily November 21, 2024 12:00am November 21, 2024 11:01am meloxicam 7.5 mg oral tablet (20 sources) Nonsteroidal Anti-inflammatory Drug Start: 05-06-2023 End: 01-21-2025 take 1 tablet by mouth once daily meloxicam (Mobic) 7.5 MG tablet Indications: Lumbar degenerative disc disease Take 1 tablet (7.5 mg) by mouth daily. 90 tablet 1 07/25/2024 01/21/2025 Active metoprolol tartrate 50 mg oral tablet (20 sources) beta-Adrenergic Lizette Start: 09-07-2017 End: 01-13-2025 take 1 tablet by mouth twice daily metoprolol tartrate (Lopressor) 50 MG tablet Indications: Essential hypertension Take 1 tablet (50 mg) by mouth 2 times daily. 180 tablet 1 01/13/2025 Active Start: 03-29-2013 take 1 tablet by meghann th twice daily, then take 1 tablet by mouth every twenty-four hours metoprolol succinate XL, long acting, 50 mg ORAL 24 hr tablet Take 50 mg by mouth twice daily. 0 03/29/2013 Active Comment on above: Take 50 mg by mouth twice daily. montelukast 10 mg oral tablet (20 sources) Leukotriene Receptor Antagonist Start: 3 End: take 1 tablet by mouth once daily montelukast (Singulair) 10 MG tablet Take 1 tablet (10 mg) by mouth Nightly. 90 tablet 3 03/27/2025 09/23/2025 Active [place]-3 Fatty Acids (Fish Oil Concentrate) 1,000 mg capsule (6 sources) Start: [place]-3 Fatty Acids (Fish Oil Concentrate) 1,000 mg capsule Active 2000 mg PO DAILY November 17, 2023 10:50am SUPPLEMENT Start: 08-29-2020 End: 11-17-2023 take 1 capsule by mouth once daily [place]-3 Fatty Acids (Fish Oil Concentrate) 1,000 mg capsule Discontinued 1000 mg PO DAILY August 29, 2020 12:00am November 17, 2023 10:53am SUPPLEMENT Start: 08-29-2020 take 1 capsule by mo [facility] once daily [place]-3 Fatty Acids (Fish Oil Concentrate) 1,000 mg capsule Active 1000 MG PO DAILY August 29, 2020 12:00am Start: 08-29-2020 take 1 capsule by mo [facility] once daily [place]-3 Fatty Acids (Fish Oil Concentrate) 1,000 mg capsule Active 1000 MG PO DAILY August 28, 2020 11:00pm omeprazole 20 mg delayed release oral capsule (20 sources) Proton Pump Inhibitor Start: 02-13-2021 take 2 capsules by mouth once daily omeprazole (PRILOSEC) 20 MG delayed release capsule Take 2 capsules by mouth Daily 90 capsule 1 02/13/2021 Active Start: 01-17-2021 take 1 capsule by [facility] once daily omeprazole (PRILOSEC) 40 mg capsule Take 1 capsule by mouth once daily. 30 capsule 2 01/17/2021 Active Start: 08-29-2020 End: 10-23-2021 take 10 mg by mouth once daily Omeprazole 20 mg capsule,delayed release(DR/EC) Discontinued 10 mg PO DAILY August 29, 2020 12:00am October 23, 2021 12:39pm ACID REFLUX Start: 08-29-2020 End: 10-23-2021 take 10 mg by mouth once daily Omeprazole Discontinued 10 MG PO DAILY August 29, 2020 12:00am October 23, 2021 12:39pm Start: 04-10-2020 End: 01-13-2025 take 1 capsule by mouth once daily omeprazole (PriLOSEC) [address] capsule Indications: Gastroesophageal reflux disease without esophagitis Take 1 capsule (20 mg) by mouth daily. Do not crush or chew. 90 capsule 1 01/13/2025 Active Comment on above: Take 1 capsule by mo [facility] once daily. Oral appliance (7 sources) Start: 07-18-2022 Oral appliance Active 0 .ROUTE .MEDSUPPLY 1 0 July 18, 2022 12:06pm Obstructive sleep apnea syndrome Obstructive sleep apnea (adult) (pediatric) As directed Start: 07-18-2022 Oral appliance Active 0 .ROUTE .MEDSUPPLY 1 July 18, 2022 12:06pm As directed Start: 04-25-2022 End: 07-18-2022 Oral appliance Discontinued 0 .ROUTE .MEDSUPPLY 1 0 April 25, 2022 1:00am July 18, 2022 12:07pm Obstructive sleep apnea syndrome Obstructive sleep apnea (adult) (pediatric) As directed Start: 04-25-2022 End: 07-18-2022 Oral appliance Discontinued 0 .ROUTE .MEDSUPPLY 1 April 25, 2022 1:00am July 18, 2022 12:07pm As directed Start: 04-25-2022 Oral appliance Active 0 .ROUTE .MEDSUPPLY 1 April 25, 2022 12:00am As directed rOPINIRole 0.5 mg oral tablet (5 sources) Nonergot Dopamine Agonist Start: 02-27-2020 take 1 tablet by mouth once daily in the evening rOPINIRole (REQUIP) 0.5 MG tablet Take 1 tablet by mouth every evening 90 tablet 1 02/27/2020 Active Start: 03-29-2019 End: 06-24-2019 take 2 tablets by mouth at bedtime Ropinirole (Requip) 0.25 mg tablet Discontinued 0.5 mg PO AT BEDTIME March 29, 2019 1:00am June 24, 2019 3:00pm Restless leg sucralfate 1000 mg oral tablet (6 sources) Aluminum Complex Start: 09-19-2020 End: 12-19-2021 take 1 tablet by mouth at bedtime sucralfate (CARAFATE) 1 gram tablet Take 1 tablet by mouth before meals and at bedtime. 100 tablet 0 09/19/2020 12/19/2021 Discontinued Comment on above: Take 1 tablet by meghann th before meals and at bedtime. 24 hr venlafaxine 37.5 mg extended release oral capsule (5 sources) Serotonin and Norepinephrine Reuptake Inhibitor Start: 05-08-2020 take 1 capsule by mouth once daily venlafaxine (EFFEXOR XR) 37.5 MG extended release capsule Take 1 capsule by mouth daily 30 capsule 1 05/08/2020 Active Start: 09-07-2017 End: 08-29-2020 take 1 tablet by mouth once daily Venlafaxine 150 MG tablet extended release 24hr Discontinued 150 mg PO DAILY September 07, 2017 12:00am August 29, 2020 10:16am MENOPAUSE vitamin b6 100 mg oral tablet (20 sources) Start: 10-23-2021 take 1 tablet by mouth once daily Pyridoxine (Vitamin B6) 100 mg tablet Active 100 mg PO DAILY October 23, 2021 12:00am Start: 08-02-2008 End: 04-07-2018 take 1 tablet by mouth once daily Pyridoxine (Vitamin B6) 100 MG tablet Discontinued 100 mg PO DAILY September 07, 2017 12:00am April 07, 2018 11:06am SUPPLEMENT Comment on above: Take one(1) tablet d aily.=dosage is 50 mg. Completed/Discontinued Medications Medication Drug Class(es) Dates Sig (Normalized) Sig (Original) acetaminophen 325 mg / HYDROcodone bitartrate 5 mg oral tablet (4 sources) Opioid Agonist Start: 07-07-2019 End: 07-12-2019 Hydrocodone-Acetamin ophen 1 EACH tablet Discontinued 1 - 2 {tbl} PO EVERY 6 HOURS as needed for Pain Score 4-10/10 30 5 0 July 07, 2019 July 11, 2019 1:00am July 12, 2019 1:08am Cholelithiasis Calculus of gallbladder without cholecystitis without obstruction Start: 07-07-2019 End: 07-12-2019 take 1 tablet by mouth every six hours Hydrocodone-Acetaminophen Discontinued 1 - 2 TABLET PO EVERY 6 HOURS 30 5 July 07, 2019 July 12, 2019 1:08am amLODIPine 5 mg oral tablet (20 sources) Dihydropyridine Calcium Channel Lizette Start: 03-26-2018 End: 10-12-2025 take 1 tablet by mouth once daily amLODIPine (Norvasc) 5 MG tablet Indications: Essential hypertension Take 1 tablet (5 mg) by mouth daily. 90 tablet 3 10/12/2024 03/27/2025 Discontinued Comment on above: Take 5 mg by mouth o nce daily. apixaban 5 mg oral tablet (4 sources) Factor Xa Inhibitor Start: 03-26-2018 End: 12-21-2018 take 2 tablets by mouth twice daily, then take 1 tablet by mouth twice daily Apixaban 5 MG tablet Discontinued 5 mg PO TWICE A DAY 70 0 March 26, 2018 1:00am December 21, 2018 7:45am 10mg twice daily for 7 days followed by 5mg twice daily after the first 7 days. Start: 03-26-2018 End: 12-21-2018 take 10 mg by mouth twice daily, then take 5 mg by mouth twice daily Apixaban Discontinued 5 MG PO TWICE A DAY 70 March 26, 2018 1:00am December 21, 2018 7:45am 10mg twice daily for 7 days followed by 5mg twice daily after the first 7 days. Arexvy 120 MCG/0.5ML reconstituted suspension (1 source) Start: 12-29-2023 End: 07-25-2024 Arexvy 120 MCG/0.5ML reconstituted suspension Inject 0.5 mL into the shoulder, thigh, or buttocks Once. 12/29/2023 07/25/2024 Discontinued (Therapy completed) Ascorbate Calcium-Bioflavonoid (4 sources) Vitamin C Start: 06-30-2019 End: 08-29-2020 take 1 tablet by mouth once daily Ascorbate Calcium-Bioflavonoid 1 EACH tablet Discontinued 1 NMA PO DAILY June 30, 2019 1:00am August 29, 2020 10:16am Start: 06-30-2019 End: 08-29-2020 Ascorbate Calcium-Bioflavono id Discontinued 1 EACH PO DAILY June 30, 2019 1:00am August 29, 2020 10:16am Start: 06-30-2019 End: 08-29-2020 Ascorbate Calcium-Bioflavono id Discontinued 1 EACH PO DAILY June 30, 2019 12:00am August 29, 2020 9:16am azelastine hydrochloride 0.137 mg/actuat metered dose nasal spray (16 sources) Histamine-1 Receptor Antagonist Start: 08-08-2021 End: 09-18-2022 Azelastine 137 mcg (0.1 %) aerosol,spray Discontinued 1 NMA INTRANASAL TWICE DAILY NEEDED as needed for POST NASAL DIRP August 08, 2021 12:00am September 18, 2022 10:55am Start: 08-08-2021 End: 09-18-2022 Azelastine Discontinued 1 SP RAY INTRANASAL TWICE DAILY NEEDED August 08, 2021 12:00am September 18, 2022 10:55am Start: 01-14-2021 take 1 spray(s) nasa l route twice daily azelastine (ASTELIN) 0.1 % nasal spray 1 SPRAY IN EACH NOSTRIL TWICE DAILY 0 01/14/2021 Active Start: 03-09-2020 azelastine ( TELIN) 0.1% nasal spray twice daily as needed. 0 03/09/2020 Active Start: 02-15-2020 End: 08-29-2020 Azelastine 137 mcg (0.1 %) aerosol,spray Discontinued 2 NMA INTRANASAL TWICE A DAY 14 11February 15, 2020 12:00am August 29, 2020 10:16am administer into each nostril Start: 02-15-2020 End: 08-29-2020 take 1 spray(s) nasal route twice daily Azelastine Discontinued 2 SPRAY INTRANASAL TWICE A DAY February 15, 2020 12:00am August 29, 2020 10:16am administer into each nostril Comment on above: twice daily as elva dFernando calcium carbonate 1250 mg oral tablet (4 sources) Start: End: take 1 tablet by mouth once daily Calcium Carbonate 500 mg calcium (1,250 mg) Tablet Discontinued 1000 mg PO DAILY July 17, 2021 1:00am September 18, 2021 9:47am SUPPLEMENT citalopram 10 mg oral tablet (11 sources) Serotonin Reuptake Inhibitor Start: End: take 1 tablet by mouth once daily citalopram (CeleXA) 10 MG tablet Take 1 tablet (10 mg) by mouth daily. 30 tablet 1 07/25/2024 03/27/2025 Discontinued (Therapy completed) clopidogrel 75 mg oral tablet (8 sources) [id number] Platelet Inhibitor Start: End: take 1 tablet by mouth once daily Clopidogrel (Plavix) 75 mg tablet Discontinued 75 mg PO DAILY August 08, 2021 4:34pm April 25, 2022 1:44pm HEART COMPOUNDED PRESCRIPTION (7 sources) Start: take 1 drop(s) into the eye(s) once daily as needed COMPOUNDED PRESCRIPTION Use 1 Drop in both eyes once daily as needed. hydroxpropyl methylcellulose 0 08/09/2021 Active Comment on above: Use 1 Drop in both e yes once daily as needed. hydroxpropyl methylcellulose Daily Defense (4 sources) Start: 018 End: 018 Daily Defense Discontinued 2 NMA PO DAILY March 25, 2018 1:00am April 07, 2018 11:06am health supplement Start: 03-25-2018 End: 04-07-2018 take 2 capsules by mouth once daily Daily Defense Discontinued 2 CAP PO DAILY March 25, 2018 1:00am April 07, 2018 11:06am Start: 03-25-2018 End: 04-07-2018 take 2 capsules by mouth once daily Daily Defense Discontinued 2 CAP PO DAILY March 25, 2018 12:00am April 07, 2018 10:06am diclofenac sodium 0.01 mg/mg topical gel (20 sources) Nonsteroidal Anti-inflammatory Drug Start: 12-29-2022 End: 03-27-2025 Diclofenac Sodium (Voltaren) 1 % gel Indications: Chronic bilateral low back pain without sciatica Apply 2 g topically 2 times daily. 150 g 2 12/29/2022 03/27/2025 Discontinued DOCOSAHEXANOIC ACID/EPA (FISH OIL ORAL) (7 sources) DOCOSAHEXANOIC ACID/EPA (FISH OIL ORAL) Take by mouth. 0 Active Comment on above: Take by mouth. Fidelia C (4 sources) Start: 03-25-2018 End: 04-07-2018 Fidelia C Discontinued 1 {tbl} PO DAILY March 25, 2018 1:00am April 07, 2018 11:06am supplement Start: 03-25-2018 End: 04-07-2018 take 1 tablet by mouth once daily Fidelia C Discontinued 1 TABLET PO DAILY March 25, 2018 1:00am April 07, 2018 11:06am Start: 03-25-2018 End: 04-07-2018 take 1 tablet by mouth once daily Fidelia C Discontinued 1 TABLET PO DAILY March 25, 2018 12:00am April 07, 2018 10:06am fenofibric acid 135 mg delayed release oral capsule (8 sources) Peroxisome Proliferator Receptor alpha Agonist Start: 04-07-2018 End: 08-29-2020 take 1 capsule by mouth once daily Fenofibric Acid (Choline) (Trilipix) 135 mg capsule,delayed release(DR/EC) Discontinued 135 mg PO DAILY April 07, 2018 1:00am August 29, 2020 10:17am cholesterol Start: 09-07-2017 End: 04-07-2018 take 1 capsule by mouth once daily Fenofibrate Micronized 134 MG capsule Discontinued 134 mg PO DAILY September 07, 2017 12:00am April 07, 2018 11:06am HYPERLIPIDEMIA ferrous fumarate-vitamin C E R (Yves-Sequeles 65-25) (5 sources) End: 05-06-2023 ferrous fumarate-vitamin C E R (Yves-Sequeles 65-25) Take 1 tablet by mouth in the morning and 1 tablet at noon and 1 tablet in the evening. Take with meals. Do not crush, chew, or split. . 0 05/06/2023 Discontinued (Therapy completed) ferrous fumarate -vitamin C ER (Yves-Sequeles 65-25) Take 1 tablet by mouth in the morning and 1 tablet at noon and 1 tablet in the evening. Take with meals. Do not crush, chew, or split. . 0 Active 120 actuat fluticasone propionate 0.22 mg/actuat metered dose inhaler (20 sources) Corticosteroid Start: 05-06-2023 End: 05-05-2024 take 2 puff(s) by inhalation in the morning fluticasone (Flovent) 220 MCG/ACT inhaler Indications: Mild intermittent asthma without complication Inhale 2 puffs in the morning and 2 puffs in the evening. Rinse mouth with water after use to reduce aftertaste and incidence of candidiasis. Do not swallow.. 12 g 5 05/06/2023 08/28/2023 Discontinued Start: 09-18-2021 End: 09-18-2022 take 50 ug nasal route every twelve hours Fluticasone Propionate (Allergy Relief (Fluticasone)) 50 mcg/actuation spray,suspension Discontinued 1 NMA INTRANASAL Q12H September 18, 2021 12:00am September 18, 2022 10:56am administer into each nostril Start: 09-18-2021 End: 09-18-2022 take 1 spray(s) nasal route every twelve hours Fluticasone Propionate (Allergy Relief (Fluticasone)) 50 mcg/actuation spray,suspension Discontinued 1 SPRAY INTRANASAL Q12H September 18, 2021 12:00am September 18, 2022 10:56am administer into each nostril Start: 06-22-2019 End: 01-14-2021 Fluticasone Propionate 50 mcg/actuation spray,suspension Discontinued 2 NMA INTRANASAL DAILY as needed for respitory 54.6 6 June 22, 2019 1:04pm January 14, 2021 2:45pm respitory Start: 06-17-2019 End: 06-22-2019 Fluticasone Propionate 16 GM spray,suspension Discontinued 2 NMA INTRANASAL DAILY as needed for respitory June 17, 2019 7:14pm June 22, 2019 1:05pm respitory Start: 02-23-2019 take 2 spray(s) nasa l route once daily fluticasone (FLONASE) 50 MCG/ACT nasal spray USE 2 SPRAYS IN EACH NOSTRIL DAILY 3 02/23/2019 Active Start: 02-23-2019 End: 06-17-2019 Fluticasone Propionate 50 mcg/actuation spray,suspension Discontinued 2 NMA INTRANASAL DAILY 16 3 February 23, 2019 12:00am June 17, 2019 7:15pm Start: 02-23-2019 End: 01-14-2021 Fluticasone Propionate Disco ntinued 2 SPRAY INTRANASAL DAILY 54.6 June 22, 2019 1:04pm January 14, 2021 2:45pm respitory 60 actuat fluticasone propionate 0.5 mg/actuat / salmeterol 0.05 mg/actuat dry powder inhaler (20 sources) Corticosteroid, beta2-Adrenergic Agonist Start: 08-28-2023 End: 02-01-2024 Fluticasone-Salmeterol (Wixela Inhub) 500-50 MCG/ACT aerosol powder Inhale 1 Inhalation. in the morning and 1 Inhalation. in the evening. 1 each 08/28/2023 02/01/2024 Discontinued (Therapy completed) Start: 04-25-2022 End: 10-26-2023 Fluticasone Propion-Salmeter ol (Wixela Inhub) 500-50 mcg/dose blister with device Discontinued 1 NMA INHALATION TWICE A DAY 3 3 April 25, 2022 2:09pm October 26, 2023 1:08pm Obstructive sleep apnea syndrome Obstructive sleep apnea (adult) (pediatric) BREATHING Start: 04-25-2022 Fluticasone Pr opion-Salmeterol (Wixela Inhub) 500-50 mcg/dose blister with device Active 1 INH INHALATION TWICE A DAY 3 April 25, 2022 2:09pm Start: 04-25-2022 Fluticasone Pr opion-Salmeterol (Wixela Inhub) 500-50 mcg/dose blister with device Active 1 INH INHALATION TWICE A DAY 3 April 25, 2022 1:09pm Start: 07-17-2021 End: 04-25-2022 Fluticasone Propion-Salmeter ol (Wixela Inhub) 500-50 mcg/dose blister with device Discontinued 1 NMA INHALATION TWICE A DAY July 17, 2021 2:16pm April 25, 2022 2:10pm BREATHING Start: 07-17-2021 End: 04-25-2022 Fluticasone Propion-Salmeter ol (Wixela Inhub) 500-50 mcg/dose blister with device Discontinued 1 INH INHALATION TWICE A DAY July 17, 2021 2:16pm April 25, 2022 2:10pm Start: 07-17-2021 End: 04-25-2022 Fluticasone Propion-Salmeter ol (Wixela Inhub) 500-50 mcg/dose blister with device Discontinued 1 INH INHALATION TWICE A DAY July 17, 2021 1:16pm April 25, 2022 1:10pm Start: 01-14-2021 End: 07-17-2021 Fluticasone Propion-Salmeter ol (Wixela Inhub) 500-50 mcg/dose blister with device Discontinued 1 NMA INHALATION DAILY 60 6 January 14, 2021 2:44pm July 17, 2021 2:16pm Start: 01-14-2021 End: 07-17-2021 Fluticasone Propion-Salmeter ol (Wixela Inhub) 500-50 mcg/dose blister with device Discontinued 1 INH INHALATION DAILY 60 January 14, 2021 2:44pm July 17, 2021 2:16pm Start: 01-14-2021 End: 07-17-2021 Fluticasone Propion-Salmeter ol (Wixela Inhub) 500-50 mcg/dose blister with device Discontinued 1 INH INHALATION DAILY 60 January 14, 2021 1:44pm July 17, 2021 1:16pm Start: 01-14-2021 End: 05-06-2023 Fluticasone-Salmeterol 500-5 0 MCG/ACT aerosol powder USE 1 INHALATION DAILY 0 01/14/2021 05/06/2023 Discontinued (Cost of medication) Start: 09-11-2020 End: 01-14-2021 Fluticasone Propion-Salmeter ol (Wixela Inhub) 500-50 mcg/dose blister with device Discontinued 1 NMA INHALATION DAILY September 11, 2020 4:18pm January 14, 2021 2:45pm Start: 09-11-2020 End: 01-14-2021 Fluticasone Propion-Salmeter ol (Wixela Inhub) 500-50 mcg/dose blister with device Discontinued 1 INH INHALATION DAILY September 11, 2020 4:18pm January 14, 2021 2:45pm Start: 09-11-2020 End: 01-14-2021 Fluticasone Propion-Salmeter ol (Wixela Inhub) 500-50 mcg/dose blister with device Discontinued 1 INH INHALATION DAILY September 11, 2020 3:18pm January 14, 2021 1:45pm Start: 08-30-2020 End: 09-11-2020 Fluticasone Propion-Salmeter ol (Wixela Inhub) 500-50 mcg/dose blister with device Discontinued 1 NMA INHALATION TWICE A DAY 60 3 August 30, 2020 12:00am September 11, 2020 4:18pm Start: 08-30-2020 End: 09-11-2020 Fluticasone Propion-Salmeter ol (Wixela Inhub) 500-50 mcg/dose blister with device Discontinued 1 INH INHALATION TWICE A DAY 60 August 30, 2020 12:00am September 11, 2020 4:18pm Start: 08-30-2020 End: 09-11-2020 Fluticasone Propion-Salmeter ol (Wixela Inhub) 500-50 mcg/dose blister with device Discontinued 1 INH INHALATION TWICE A DAY 60 August 29, 2020 11:00pm September 11, 2020 3:18pm Fluticasone Furoate-Vilanterol (4 sources) Corticosteroid, beta2-Adrenergic Agonist Start: 08-29-2020 End: 08-30-2020 Fluticasone Furoate-Vilanterol (Breo Ellipta) 200-25 mcg/dose blister with device Discontinued 1 NMA INHALATION DAILY 60 3 August 29, 2020 12:00am August 30, 2020 2:36pm Start: 08-29-2020 End: 08-30-2020 Fluticasone Furoate-Vilanter ol (Breo Ellipta) 200-25 mcg/dose blister with device Discontinued 1 INH INHALATION DAILY 60 August 29, 2020 12:00am August 30, 2020 2:36pm Start: 08-29-2020 End: 08-30-2020 Fluticasone Furoate-Vilanter ol (Breo Ellipta) 200-25 mcg/dose blister with device Discontinued 1 INH INHALATION DAILY 60 August 28, 2020 11:00pm August 30, 2020 1:36pm furosemide 20 mg oral tablet (8 sources) Loop Diuretic Start: 07-18-2021 End: 09-18-2021 take 1 tablet by mouth once daily Furosemide (Lasix) 20 mg tablet Discontinued 20 mg PO DAILY August 08, 2021 4:34pm September 18, 2021 9:46am WATER PILL glipiZIDE er 2.5 mg 24 hr extended release oral tablet (4 sources) Sulfonylurea Start: 03-26-2018 End: 06-22-2018 take 1 tablet by mouth once daily Glipizide 2.5 MG tablet extended release 24hr Discontinued 2.5 mg PO DAILY 30 0 March 26, 2018 1:00am June 22, 2018 2:53pm ammonium lactate 120 mg/ml topical cream (12 sources) Start: 06-10-2024 End: 03-27-2025 ammonium lactate (Amlactin) 12 % cream Apply topically. 06/10/2024 03/27/2025 Discontinued Magnesium (4 sources) Start: 04-25-2022 End: 10-26-2023 take 1 tablet by mouth once daily Magnesium 250 mg tablet Discontinued 250 mg PO DAILY April 25, 2022 1:00am October 26, 2023 1:08pm Start: 04-25-2022 take 250 mg by mouth once ben y Magnesium Active 250 MG PO DAILY April 25, 2022 1:00am Start: 04-25-2022 take 250 mg by mouth once ben y Magnesium Active 250 MG PO DAILY April 25, 2022 12:00am magnesium oxide 200 mg oral tablet (5 sources) End: 08-28-2023 magnesium oxide (Mag-200) 20 0 MG tablet Take 500 mg by mouth daily. 0 08/28/2023 Discontinued (Therapy completed) magnesium oxide (Mag-200) 200 MG tablet Take 250 mg by mouth daily. 0 Active nitroglycerin 0.3 mg sublingual tablet (6 sources) Nitrate Vasodilator Start: 05-09-2020 End: 09-18-2021 Nitroglycerin 0.3 mg tablet, sublingual Discontinued 0.3 mg SL Q5M as needed for Chest Pain August 29, 2020 12:00am September 18, 2021 9:46am do not exceed 3 doses per episode [place]-3 Fatty Acids (6 sources) Start: 08-02-2018 End: 06-24-2019 take 1000 mg by mouth every other day [place]-3 Fatty Acids Discontinued 1000 MG PO .QOD August 02, 2018 12:00am June 24, 2019 3:00pm Start: 08-02-2018 End: 06-24-2019 take 1000 mg by mouth every other day [place]-3 Fatty Acids Discontinued 1000 MG PO .QOD August 01, 2018 11:00pm June 24, 2019 2:00pm Start: 06-22-2018 End: 08-02-2018 take 1000 mg by mouth once daily [place]-3 Fatty Acids Discontinued 1000 MG PO DAILY June 22, 2018 1:00am August 02, 2018 10:14am Start: 06-22-2018 End: 08-02-2018 take 1000 mg by mouth once daily [place]-3 Fatty Acids Discontinued 1000 MG PO DAILY June 22, 2018 12:00am August 02, 2018 9:14am Start: 09-07-2017 End: 04-07-2018 take 1000 mg by mouth once daily [place]-3 Fatty Acids Discontinued 1000 MG PO DAILY September 07, 2017 12:00am April 07, 2018 11:06am Start: 09-07-2017 End: 04-07-2018 take 1000 mg by mouth once daily [place]-3 Fatty Acids Discontinued 1000 MG PO DAILY September 06, 2017 11:00pm April 07, 2018 10:06am [place]-3 Fatty Acids 1,000 mg capsule (4 sources) Start: 08-02-2018 End: 06-24-2019 take 1 capsule by mouth every other day [place]-3 Fatty Acids 1,000 mg capsule Discontinued 1000 mg PO .QOD August 02, 2018 12:00am June 24, 2019 3:00pm gout Start: 06-22-2018 End: 08-02-2018 take 1 capsule by mouth once daily [place]-3 Fatty Acids 1,000 mg capsule Discontinued 1000 mg PO DAILY June 22, 2018 1:00am August 02, 2018 10:14am [place]-3 Fatty Acids 1,000 MG capsule (2 sources) Start: 09-07-2017 End: 04-07-2018 take 1 capsule by mouth once daily [place]-3 Fatty Acids 1,000 MG capsule Discontinued 1000 mg PO DAILY September 07, 2017 12:00am April 07, 2018 11:06am GOUT polypodium leucotomos 240 mg oral capsule (4 sources) Start: 04-25-2022 End: 10-26-2023 take 1 capsule by mouth once daily Polypodium Leucotomos Extract 240 mg capsule Discontinued 240 mg PO DAILY April 25, 2022 1:00am October 26, 2023 1:09pm predniSONE 10 mg oral tablet (4 sources) Start: 08-08-2020 End: 08-29-2020 Prednisone 10 mg tablet Discontinued 10 mg PO daily 30 0 August 08, 2020 12:00am August 29, 2020 10:16am take 4 tabs for three days, then 3 tabs for three days, then 2 tabs for three days, then 1 tab for 3 days 50 ml sodium chloride 9 mg/ml injection (1 source) Start: 08-09-2021 End: 08-09-2021 0.9 % sodium chloride bolus triamcinolone acetonide 0.055 mg/actuat metered dose nasal spray (4 sources) Corticosteroid Start: 08-29-2020 End: 09-14-2020 Triamcinolone Acetonide (Nasacort) 55 mcg aerosol,spray Discontinued 1 NMA INTRANASAL DAILY August 29, 2020 12:00am September 14, 2020 2:51pm administer into each nostril Start: 08-29-2020 End: 09-14-2020 take 1 spray(s) nasal route once daily Triamcinolone Acetonide (Nasacort) 55 mcg aerosol,spray Discontinued 1 SPRAY INTRANASAL DAILY August 29, 2020 12:00am September 14, 2020 2:51pm administer into each nostril ubidecarenone 100 mg oral tablet (4 sources) Start: 06-22-2018 End: 12-21-2018 take 10 tablets by mouth once daily Coenzyme Q10 100 mg tablet Discontinued 200 mg PO DAILY June 22, 2018 1:00am December 21, 2018 7:45am ursodiol 250 mg oral tablet (7 sources) Bile Acid Start: 10-23-2021 End: 04-25-2022 take 1 tablet by mouth three times daily Ursodiol 250 mg tablet Discontinued 250 mg PO THREE TIMES A DAY October 23, 2021 12:00am April 25, 2022 1:43pm Start: 08-13-2021 End: 09-12-2021 take 1.5 tablets by mouth twice daily ursodiol (ADONAY) 250 mg tablet Take 1.5 tablets by mouth twice daily. 90 tablet 0 08/13/2021 09/12/2021 Active Comment on above: Take 1.5 tablets by mouth twice daily. Vitamin B Complex (4 sources) Start: 06-30-2019 End: 08-29-2020 Vitamin B Complex Discontinued 1 EACH PO DAILY June 30, 2019 1:00am August 29, 2020 10:16am Start: 06-30-2019 End: 08-29-2020 Vitamin B Complex Discontinu ed 1 EACH PO DAILY June 30, 2019 12:00am August 29, 2020 9:16am Start: 06-22-2018 End: 08-02-2018 take 1 capsule by mouth once daily Vitamin B Complex Discontinued 1 CAP PO DAILY June 22, 2018 1:00am August 02, 2018 10:13am Start: 06-22-2018 End: 08-02-2018 take 1 capsule by mouth once daily Vitamin B Complex Discontinued 1 CAP PO DAILY June 22, 2018 12:00am August 02, 2018 9:13am Vitamin B Complex 1 EACH capsule (2 sources) Start: 06-30-2019 End: 08-29-2020 Vitamin B Complex 1 EACH cap mati Discontinued 1 NMA PO DAILY June 30, 2019 1:00am August 29, 2020 10:16am Vitamin B Complex capsule (2 sources) Start: 06-22-2018 End: 08-02-2018 Vitamin B Complex capsule Discontinued 1 NMA PO DAILY June 22, 2018 1:00am August 02, 2018 10:13am Problems Active Problems Problem Classification Problem Date Documented Da te Episodic/Chronic Abdominal pain (8 sources) Epigastric pain; Translations: [Epigastric pain] 04-06-2020 Episodic Asthma (20 sources) Asthma; Translations: [Unspecified asthma, uncomplicated] Onset: 6 Resolved: 5 10-11-2020 Chronic Biliary tract disease (19 sources) Common bile duct calculus; Translations: [Calculus of bile duct without cholangitis or cholecystitis without obstruction] Onset: 2 08-09-2021 Episodic Blindness and vision defects (4 sources) Diplopia; Translations: [Diplopia] 07-24-2021 Episodic Conditions associated with dizziness or vertigo (4 sources) Vertigo; Translations: [Dizziness and giddiness] 07-24-2021 Episodic Conduction disorders (1 source) First degree atrioventricular block; Translations: [Atrioventricular block, first degree] 07-25-2024 Chronic Disorders of lipid metabolism (20 sources) Hypercholesterolemia; Translations: [Pure hypercholesterolemia, unspecified] Onset: 7 05-28-2016 Chronic Esophageal disorders (20 sources) Gastroesophageal reflux disease without esophagitis; Translations: [Gastro-esophageal reflux disease without esophagitis] Onset: 3 12-29-2022 Chronic Essential hypertension (20 sources) Essential hypertension; Translations: [Essential (primary) hypertension] Onset: 7 05-28-2016 Chronic Gastroduodenal ulcer (except hemorrhage) (3 sources) Duodenal erosion; Translations: [Duodenal ulcer, unspecified as acute or chronic, without hemorrhage or perforation] Onset: 2 Chronic Gout and other crystal arthropathies (4 sources) Gout; Translations: [Gout, unspecified] 09-10-2021 Chronic Menopausal disorders (20 sources) Menopausal symptom; Translations: [Menopausal and female climacteric states] Onset: 0 09-06-2009 Chronic Mood disorders (13 sources) Depressive disorder; Translations: [Depression, unspecified depression type] Onset: 5 07-25-2024 Chronic Occlusion or stenosis of precerebral arteries (4 sources) Right carotid artery stenosis; Translations: [Occlusion and stenosis of right carotid artery] 09-10-2021 Chronic Comment on above: Moderate (60%) steno sis right carotid stenosis. CT 07/17/21 Osteoporosis (14 sources) Osteoporosis; Translations: [Age-related osteoporosis without current pathological fracture] 02-01-2024 Chronic Other aftercare (1 source) Patient encounter status; Translations: [senior care (current) use of non-steroidal anti-inflammatories (NSAID)] 02-01-2024 Episodic Other aftercare (14 sources) senior care current use of non-steroidal anti-inflammatory drug; Translations: [senior care (current) use of non-steroidal anti-inflammatories (NSAID)] 02-01-2024 Episodic Other and ill-defined heart disease (2 sources) Left ventricular hypertrophy; Translations: [Cardiomegaly] Onset: 5 01-01-2025 Chronic Other and ill-defined heart disease (3 sources) Left ventricular diastolic dysfunction ; Translations: [Other ill-defined heart diseases] Onset: 5 01-01-2025 Chronic Other and ill-defined heart disease (2 sources) Other ill-defined heart diseases; Translations: [Other ill-defined heart diseases] Onset: 5 Chronic Other circulatory disease (20 sources) History of cerebrovascular accident; Translations: [Personal history of transient ischemic attack (TIA), and cerebral infarction without residual deficits] Onset: 2 09-10-2021 Episodic Comment on above: Focal area of LEFT p aramedian pontine acute non-hemorrhagic infarct measuring approximately 13 x 7 mm in size. MRI 07/17/21 Other circulatory disease (4 sources) Personal history of transient ischemic attack (TIA), and cerebral infarction without residual deficits; Translations: [Personal history of transient ischemic attack (TIA), and cerebral infarction without residual deficits] Onset: 2 04-25-2022 Episodic Other ear and sense organ disorders (2 sources) Does use hearing aid; Translations: [Presence of external hearing-aid] 01-01-2025 Episodic Other female genital disorders (7 sources) Dyspareunia; Translations: [Dyspareunia] Onset: 2 01-02-2012 Chronic Other gastrointestinal disorders (2 sources) Diarrhea; Translations: [Diarrhea, unspecified] Episodic Other gastrointestinal disorders (1 source) Stool finding; Translations: [Other fecal abnormalities] Episodic Other gastrointestinal disorders (1 source) Diarrhea, unspecified; Translations: [Diarrhea, unspecified type] Onset: 2 Episodic Other gastrointestinal disorders (1 source) Other fecal abnormalities; Translations: [Elevated fecal calprotectin] Onset: 2 Episodic Other hereditary and degenerative nervous system conditions (4 sources) Restless legs; Translations: [Restless legs syndrome] 08-02-2018 Chronic Other injuries and conditions due to external causes (1 source) Puncture wound - injury; Translations: [Other injury of unspecified body region, initial encounter] 07-25-2024 Episodic Other liver diseases (4 sources) Fatty (change of) liver, not elsewhere classified; Translations: [Nonalcoholic fatty liver disease] 04-06-2020 Chronic Other liver diseases (4 sources) Elevated liver enzymes level; Translations: [Abnormal levels of other serum enzymes] 09-10-2021 Episodic Comment on above: Obstructive jaundice and elevated liver enzymes, ERCP 08/08/21; 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, 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 Ampulla at the level of the stricture S/P sphincterotomy and balloon sweep 08/12/21 Other lower respiratory disease (1 source) Dyspnea; Translations: [Shortness of breath] Episodic Other lower respiratory disease (4 sources) Nodule of lung; Translations: [Solitary pulmonary nodule] 09-10-2021 Episodic Other lower respiratory disease (4 sources) Dyspnea on exertion; Translations: [Other forms of dyspnea] 09-18-2022 Episodic Other lower respiratory disease (1 source) Other forms of dyspnea; Translations: [Other respiratory abnormalities] 09-18-2022 Episodic Other lower respiratory disease (1 source) Shortness of breath; Translations: [Shortness of breath] Onset: 5 Episodic Other nervous system disorders (2 sources) Chronic pain; Translations: [Other chronic pain] 01-07-2023 Chronic Other nutritional; endocrine; and metabolic disorders (7 sources) Obese class II; Translations: [Obesity, unspecified] Onset: 2 08-13-2021 Chronic Other nutritional; endocrine; and metabolic disorders (4 sources) Obesity; Translations: [Obesity, unspecified] 09-11-2021 Chronic Other nutritional; endocrine; and metabolic disorders (1 source) Obesity, unspecified; Translations: [Obesity, unspecified] 04-25-2022 Chronic Other upper respiratory disease (1 source) Allergic rhinitis due to pollen; Translations: [Allergic rhinitis due to pollen] 02-01-2024 Chronic Other upper respiratory disease (14 sources) Allergic rhinitis; Translations: [Allergic rhinitis, unspecified] 02-01-2024 Chronic Other upper respiratory infections (4 sources) Posterior rhinorrhea; Translations: [Postnasal drip] 08-02-2018 Episodic Pulmonary heart disease (20 sources) Pulmonary hypertension; Translations: [Pulmonary hypertension, unspecified] Onset: 4 09-10-2021 Chronic Residual codes; unclassified (4 sources) Obstructive sleep apnea syndrome; Translations: [Obstructive sleep apnea (adult) (pediatric)] 10-11-2020 Chronic Residual codes; unclassified (2 sources) Obstructive sleep apnea (adult) (pediatric); Translations: [Obstructive sleep apnea (adult)(pediatric)] 04-25-2022 Chronic Residual codes; unclassified (15 sources) Sleep apnea; Translations: [Sleep apnea, unspecified] Onset: 8 02-01-2024 Chronic Residual codes; unclassified (1 source) Edema; Translations: [Edema, unspecified] 07-25-2024 Episodic Spondylosis; intervertebral disc disorders; other back problems (20 sources) Degeneration of lumbar intervertebral disc; Translations: [Other intervertebral disc degeneration, lumbar region] Onset: 6 08-28-2023 Chronic Unclassified (1 source) Other intervertebral disc degeneration, lumbar region without mention of lumbar back pain or lower extremity pain; Translations: [Other intervertebral disc degeneration, lumbar region without mention of lumbar back pain or lower extremity pain] Onset: Past or Other Problems Problem Classification Problem Date Documented Da te Episodic/Chronic Acute cerebrovascular disease (2 sources) Cerebrovascular accident; Translations: [Cerebral infarction, unspecified] Onset: 07-16-2021 Resolved: 03-27-2025 01-01-2025 Chronic Diabetes mellitus without complication (1 source) Hyperglycemia; Translations: [Hyperglycemia, unspecified] Episodic Mycoses (7 sources) Candidiasis; Translations: [Candidiasis of skin and nail] Onset: 01-02-2012 01-02-2012 Episodic Nonmalignant breast conditions (7 sources) Inversion of nipple; Translations: [Other signs and symptoms in breast] Onset: 03-13-2011 03-13-2011 Episodic Nonspecific chest pain (20 sources) Chest discomfort; Translations: [Other chest pain] Onset: 06-07-2020 Resolved: 05-04-2023 06-07-2020 Episodic Other aftercare (2 sources) 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); Translations: [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 non-steroidal anti-inflammatories (nsaid)] Onset: 02-01-2024 Episodic Other infections; including parasitic (2 sources) History of hepatitis B; Translations: [Personal history of other infectious and parasitic diseases] Onset: 05-18-1976 01-01-2025 Episodic Other injuries and conditions due to external causes (2 sources) Other injury of unspecified body region, initial encounter; Translations: [Other injury of unspecified body region, initial encounter] Onset: 07-25-2024 Episodic Other non-epithelial cancer of skin (14 sources) History of squamous cell carcinoma of skin; Translations: [Personal history of other malignant neoplasm of skin] Onset: 05-18-2021 02-01-2024 Episodic Other screening for suspected conditions (not mental disorders or infectious disease) (3 sources) Other specified abnormal findings of blood chemistry; Translations: [Other abnormal blood chemistry] Episodic Phlebitis; thrombophlebitis and thromboembolism (14 sources) H/O: Deep vein thrombosis; Translations: [Personal history of other venous thrombosis and embolism] Onset: 03-18-2018 02-01-2024 Episodic Pulmonary heart disease (20 sources) Acute pulmonary embolism; Translations: [Other pulmonary embolism without acute cor pulmonale] Onset: 05-18-2017 Resolved: 08-28-2023 02-13-2021 Episodic Comment on above: Extensive bilateral pulmonary emboli per CT 03/2018 Residual codes; unclassified (2 sources) Edema, unspecified; Translations: [Edema, unspecified] Onset: 07-25-2024 Episodic Skin and subcutaneous tissue infections (7 sources) Furuncle of groin; Translations: [Furuncle of groin] Onset: 01-02-2012 01-02-2012 Episodic Spondylosis; intervertebral disc disorders; other back problems (20 sources) Pain in cervical spine; Translations: [Cervicalgia] Onset: 11-28-2015 Resolved: 03-27-2025 11-28-2015 Episodic Unclassified (1 source) Other intervertebral disc degeneration, lumbar region without mention of lumbar back pain or lower extremity pain; Translations: [Other intervertebral disc degeneration, lumbar region without mention of lumbar back pain or lower extremity pain] Onset: 07-25-2024 Results Test Name Value Interpretation Reference Range Facility 37on 03-27-2025 37 Personalized Prevent ative Plan for Sharron Torres - 03/27/2025 Medicare offers a range of preventative health benefits. Some of the tests and screenings are paid in full while others may be subject to a deductible, co-insurance, and / or copay. Some of these benefits include a comprehensive review of your medical history including lifestyle, illnesses that may run in your family, and various assessments and screenings as appropriate. After reviewing your medical record and screening and assessments performed today, your provider may have ordered immunizations, labs, imaging, and / or referrals for you. A list of these orders (if applicable) as well as your Preventative Care list are included within your After Visit Summary for your review. Other Preventative Recommendations: A preventive eye exam by an hris specialist is recommended every 1-2 years to screen for glaucoma, cataracts, macular degeneration, and other eye disorders. A preventive dental visit is recommended every 6 months. Try to get at least 150 minutes of exercise per week or 10,000 steps per day on a pedometer. You need 1200-1500mg of calcium and [id number] international units of vitamin D per day. It is possible to meet your calcium requirement with diet alone, but a vitamin D supplement is usually necessary to meet this goal. When exposed to the sun, use a sunscreen that protects against both UVA and UVB radiation with an SPF of 30 or greater. Reapply every 2-3 hours or after sweating, drying off with a towel, or swimming. Always wear a seat belt when traveling in a car. Always wear a helmet when riding a bicycle or a motorcycle Normal [facility] Office Visiton 03-27-2025 Follow-up visit [id number] Sharron Torres 1945 F Date Provider Department Center 03/27/2025 [id number] WHITNEY [facility] Family History Problem Relation Age of Onset Coronary artery disease Mother Comments: age 87 Stroke Mother Comments: hx of CABG High Blood Pressure Mother High Blood Pressure Father Comments: hx of CABG Coronary artery disease Father Comments: age 66 Coronary artery disease Sister Comments: [place] - CABG Coronary artery disease Brother 40 Comments: CABG Family Status - Relation Status Age at Mother Father Sister Alive Brother Alive Level of Service:G0439 [place], SUBSEQ VISIT Reason for Visit and Comments: Medicare Annual Wellness Visit Subsequent [677] - Patient agreeable to have Sebas Silvestre PA-C shadow Dr. Ramin Whitney for their scheduled visit Normal [facility] Progress Noteon 03-27-2025 Progress Note Orders: Lipid panel; Future Normal [facility] Progress Note Orders: CBC auto differential; Future Comprehensive metabolic panel; Future Normal [facility] Progress Note [facility] - [address] [facility] [address] Dept: [phone] Dept Chief Complaint: Sharron Torres is an 79 y.o. female here for an annual wellness visit. Hypertensive patient with history of remote TIA, LVH with preserved left ventricular function presents for annual wellness exam. Overall she has been well. Missing some losartan late in the day. Recent echocardiogram in December per cardiology was stable. Blood pressure at that time was well. Assessment/Plan : Assessment & Plan Primary hypertension Orders: CBC auto differential; Future Comprehensive metabolic panel; Future Hypercholesterolemia Orders: Lipid panel; Future Mild intermittent asthma without complication Gastroesophageal reflux disease without esophagitis History of CVA (cerebrovascular accident) Left ventricular diastolic dysfunction with preserved systolic function Encounter for subsequent annual wellness visit (AWV) in Medicare patient Routine general medical examination at health care facility I have reviewed and reconciled the medication list with the patient today. Current Medications[1] Also reviewed during this visit: Meds Problems Med Hx Surg Hx Fam Hx The following health maintenance schedule was reviewed with the patient and provided in printed form in the after visit summary: Health Maintenance Topic Date Due Bone Density Scan Never done Medicare Annual Wellness (AWV) 03/02/2025 COVID-19 Vaccine ( season) 2025 Depression Monitoring 09/24/2025 Lipid Panel 07/25/2029 DTaP/Tdap/Td Vaccines (2 - Td or Tdap) 07/25/2034 RSV Immunization for Adults Completed Influenza Vaccine Completed Pneumococcal Vaccine: 50+ Years Completed Zoster Vaccines Completed Hepatitis C Screening Completed RSV Immunization under 20 Months Aged Out HIB Vaccines Aged Out Hepatitis B Vaccines Aged Out IPV Vaccines Aged Out Hepatitis A Vaccines Aged Out Meningococcal Vaccine Aged Out Rotavirus Vaccines Aged Out HPV Vaccines Aged Out Meningococcal B Vaccine Aged Out Colorectal Cancer Screening Discontinued List of current healthcare providers: Patient Care Team: Ramin Whitney DO as PCP - General (Family Medicine) Orders Placed This Encounter Procedures CBC auto differential Standing Status: Future Number of Occurrences: 1 Expected Date: 03/27/2025 Expiration Date: 03/27/2026 Comprehensive metabolic panel Standing Status: Future Number of Occurrences: 1 Expected Date: 03/27/2025 Expiration Date: 03/27/2026 Lipid panel Standing Status: Future Number of Occurrences: 1 Expected Date: 03/27/2025 Expiration Date: 03/27/2026 Review of Systems overall feeling well. Allergies treated well with Singulair. No recent purulent phlegm or fever. Denies exertional chest pain but does get some dyspnea on exertion. Recent echo was normal. Of note she has had a few heart catheterizations without CAD. No change in heartburn. Some constipation diarrhea depending on what she eats but no melena or blood. No colonoscopy indicated. No change in bowels or bladder otherwise. No new arthralgias. Tylenol is effective. Physical Exam The physical exam is generally normal. Patient appears well, alert and oriented x 3, pleasant, cooperative. Vitals are as noted. Neck supple, no abnormal adenopathy, thyroid lesions or masses.. No carotid bruits lungs are clear to auscultation. Heart is regular, without murmurs, gallops or ectopy. Abdomen is soft, non tender, without masses, hepatosplenomegaly, or bruits. Normal BS evident. Extremities are normal without edema. Peripheral pulses are good. No worrisome skin lesions. Screening neurological exam is normal without focal deficits. Fair hip range of motion Objective : BP (!) 148/78 Pulse 68 Temp 36.7 ?C (98 ?F) (Temporal) Ht 5' 2 (1.575 m) Wt 165 lb (74.8 kg) SpO2 95% BMI 30.18 kg/m? No results found. Subjective : Health Risk Assessment: General: General In general, how would you say your health is?: (!) Fair Are you currently experiencing any of the following? (select all that apply): None of these Health Habits and Nutrition: Health Habits and Nutrition On average, how many days per week do you engage in moderate to strenous exercise?: (!) 0 Days Have you lost any weight without trying in the past 3 months? : No Have you seen the dentist within the past year?: Yes Interventions: Dental hearing and vision exams apparently up to date Hearing and Vision: Hearing and Vision Do you or your family notice any trouble with your hearing?: (!) Yes Do you have difficulty driving, watching TV, or doing any of your daily activities because of your eyesight?: No Have you had an eye exam within the past year?: Yes No results found. Interventions: Vision concerns: Patient declines any furthe (more content not included)... [address] 03-01-2025 36 Pt is scheduled 03/27/[address] 02-28-2025 36 Name of caller: Sharron Torres Contact phone number: [phone] Relationship to Patient: patient Provider: Dr Whitney Practice: [facility] Chief Complaint/Reason for Call: Patient stated that she would like to schedule 6 month follow up appointment with Dr Whitney, was not able to access schedule. Patient stated to please call back to schedule. Thank you. Best time of day caller can be reached: Any Patient advised that office/PCP has 24-48 business hours to return their call: No [address] 01-13-2025 36 Recent Visits Date Type Provider Dept 07/25/24 Office Visit Ramin Whitney DO [facility] 02/01/24 Office Visit Ramin Whitney DO [facility] Showing recent visits within past 365 days and meeting all other requirements Future Appointments No visits were found meeting these conditions. Showing future appointments within next 90 days and meeting all other requirements Requested Prescriptions Pending Prescriptions Disp Refills atorvastatin (Lipitor) 80 MG tablet 90 tablet 1 Sig: Take 1 tablet (80 mg) by mouth daily. metoprolol tartrate (Lopressor) 50 MG tablet 180 tablet 1 Sig: Take 1 tablet (50 mg) by mouth 2 times daily. omeprazole (PriLOSEC) [address] capsule 90 capsule 1 Sig: Take 1 capsule (20 mg) by mouth daily. Do not crush or chew. hydroCHLOROthiazide 12.5 MG tablet 90 tablet 1 Sig: Take 1 tablet (12.5 mg) by mouth daily. Provider:Dr Whitney Verified pharmacy: yes Verified day(s) supplied: yes Verified refill(s) needed (previous prescription showing no refills in chart): Yes Have you received any controlled medications from any other provider? N/A Overdue for visit: N/A If yes - patient scheduled? N/A Most recent labs completed in chart? N/A None Normal [facility] Echo Complete W/ Contraston 12-29-2024 Echo Complete W/ Contrast [facility] [address] [place] [address] Echo Complete W/ Contrast 12/29/24 0812 MR#: [id number] Acct: [id number] Name: SHARRON TORRES Rep #: [id number] : 1945 79 From: Bernardino Mclean MD Attending Dr: Bailey Mcdonald [employer]-C Status: REG [facility] Ordering Dr: Bailey Mcdonald [employer]-C Date: 12/29/24 Location: [facility] Sex: F C Admitted: Reason For Study Reason For Study: DYSPNEA Procedure This was a 2D Doppler, Color Flow transthoracic echocardiogram. The study was technically difficult. Contrast injection was performed. Exam performed in department. Left Ventricle Normal LV size. Moderate concentric left ventricular hypertrophy. The left ventricular ejection fraction is 70 %. Stage 1 diastolic dysfunction. Right Ventricle Normal RV size. The right ventricle is normal in size, function, and thickness. Atria Normal left atrium. Normal right atrium. Mitral Valve Normal mitral valve. There is mild mitral annular calcification. Mild-Moderate (1-2+) eccentric mitral valve insufficiency. Tricuspid Valve Normal tricuspid valve. Mild (1+) tricuspid valve insufficiency. Pulmonary artery systolic pressure is 35 mmHg. Aortic Valve Normal aortic valve. Pulmonic Valve Normal pulmonic valve. Great Vessels Normal aortic root. The pulmonary artery is normal size. Inferior vena cava collapse with respiration. Pericardium/Pleural No pericardial effusion. Medication 22 gauge I.V. with prn adaptor inserted into left arm. Diluted definity 1.5ml given slow IV push to enhance endocardial definition. MMode/2D Measurements Calculations LVIDd: 4.4 cm IVSd: 1.5 cm LVOT diam: 2.0 cm LVIDs: 2.9 cm LVPWd: 1.5 cm RVDd: 2.7 cm FS: 33.3 % LVOT area: 3.1 cm2 LAV(MOD-bp): 48.9 ml LVAd ap4: 26.2 cm2 SV(MOD-sp4): 56.7 ml LAV(MOD-bp) Indexed: 27.7 ml/m2 LVLd ap4: 7.8 cm SI(MOD-sp4): 32.2 ml/m2 LAV(MOD-sp2): 39.2 ml EDV(MOD-sp4): 75.7 ml LAV(MOD-sp4): 51.9 ml EDV(sp4-el): 74.6 ml LVAs ap4: 11.5 cm2 LVLs ap4: 6.0 cm ESV(MOD-sp4): 19.1 ml ESV(sp4-el): 18.5 ml EF(MOD-sp4): 74.8 % EF(sp4-el): 75.2 % SV(sp4-el): 56.1 ml LA A4 area: 19.2 cm2 LA dimension(2D): 4.3 cm RA A4 area: 13.1 cm2 Time Measurements MV dec time: 0.12 sec Doppler Measurements Calculations MV E max tripp: 97.9 cm/sec Lat Peak E' Tripp: 6.6 cm/sec Med Peak E' Tripp: 5.6 cm/sec MV A max tripp: 126.9 cm/sec E/E' lat: 14.9 E/E' med: 17.5 MV E/A: 0.77 MV V2 max: 128.1 cm/sec MV dec slope: 830.4 cm/sec2 Ao V2 max: 111.9 cm/sec MV max P.6 mmHg Ao max P.0 mmHg MV V2 mean: 72.9 cm/sec Ao V2 mean: 75.6 cm/sec MV mean P.7 mmHg Ao mean P.7 mmHg MV V2 VTI: 36.2 cm Ao V2 VTI: 22.3 cm MVA(VTI): 2.4 cm2 AV (velocity ratio): 1.2 LEANA(I,D): 3.8 cm2 LEANA(V,D): 3.2 cm2 LV V1 max: 113.5 cm/sec SV(LVOT): 85.7 ml PA V2 max: 91.2 cm/sec LV V1 max P.1 mmHg PA V2 mean: 72.2 cm/sec LV V1 mean P.9 mmHg LV V1 mean: 77.3 cm/sec LV V1 VTI: 27.6 cm TR max tripp: 275.6 cm/sec TR max P.4 mmHg ECHO/Echo Complete W/ Contrast Interpretation Summary Normal LV size. Moderate concentric left ventricular hypertrophy. The left ventricular ejection fraction is 70 %. Stage 1 diastolic dysfunction. Pulmonary artery systolic pressure is 35 mmHg. Contrast injection was performed. Ordering Physician: Bailey Mcdonald Referring Physician: Bailey Mcdonald Performed By: Mylene Serrano RCS 12/29/24 1304 Date Bernardino Mclean MD CC: JEWEL BEARING POLISHERValente Mcdonald; Dr. Chevy Matthew DO Date Dictated: 12/29/2412 Date Transcribed: 12/29/24 1304 Narrative Writer: Signed [facility] Echocardiogram study reportO rdered By: Bernardino Mclean on 12-29-2024 Study report [facility] [address] [place] [address] Echo Complete W/ Contrast 12/29/24811 MR#: [id number] Acct: [id number] Name: SHARRON TORRES Rep #:[id number] : 1945 79 From: Bernardino Hollins Attending Dr: Bailey Mcdonald, [employer]-C Flaca tatus: REG CLI Ordering Dr: Bailey Mcdonald [employer]ER [employer]ER-C Carlos e: 12/29/24 Location: [facility] Sex: F C Admitted: Reason For Study Reason For Study: DYSPNEA Procedure This was a 2D Doppler, Color Flow transthoracic echocardiogram. The study was technically difficult. Contrast injection was performed. Exam performed in department. Left Ventricle Normal LV size. Moderate concentric left ventricular hypertrophy. The left ventricular ejection fraction is 70 %. Stage 1 diastolic dysfunction. Right Ventricle Normal RV size. The right ventricle is normal in size, function, and thickness. Atria Normal left atrium. Normal right atrium. Mitral Valve Normal mitral valve. There is mild mitral annular calcification. Mild-Moderate (1-2+) eccentric mitral valve insufficiency. Tricuspid Valve Normal tricuspid valve. Mild (1+) tricuspid valve insufficiency. Pulmonary artery systolic pressure is 35 mmHg. Aortic Valve Normal aortic valve. Pulmonic Valve Normal pulmonic valve. Great Vessels Normal aortic root. The pulmonary artery is normal size. Inferior vena cava collapse with respiration. Pericardium/Pleural No pericardial effusion. Medication 22 gauge I.V. with prn adaptor inserted into left arm. Diluted definity 1.5ml given slow IV push to enhance endocardial definition. MMode/2D Measurements & Calculations LVIDd: 4.4 cm IVSd: 1.5 cm LVOT diam: 2.0 cm LVIDs: 2.9 cm LVPWd: 1.5 cm RVDd: 2.7 cm FS: 33.3 % LVOT area: 3.1 cm2 LAV(MOD-bp): 48.9 ml LVAd ap4: 26.2 cm2 SV(MOD-sp4): 56.7 ml LAV(MOD-bp) Indexed: 27.7 ml/m2 LVLd ap4: 7.8 cm SI(MOD-sp4): 32.2 ml/m2 LAV(MOD-sp2): 39.2 ml EDV(MOD-sp4): 75.7 ml LAV(MOD-sp4): 51.9 ml EDV(sp4-el): 74.6 ml LVAs ap4: 11.5 cm2 LVLs ap4: 6.0 cm ESV(MOD-sp4): 19.1 ml ESV(sp4-el): 18.5 ml EF(MOD-sp4): 74.8 % EF(sp4-el): 75.2 % SV(sp4-el): 56.1 ml LA A4 area: 19.2 cm2 LA dimension(2D): 4.3 cm RA A4 area: 13.1 cm2 Time Measurements MV dec time: 0.12 sec Doppler Measurements & Calculations MV E max tripp: 97.9 cm/sec Lat Peak E' Tripp: 6.6 cm/sec Med Peak E' Tripp: 5.6 cm/sec MV A max tripp: 126.9 cm/sec E/E' lat: 14.9 E/E' med: 17.5 MV E/A: 0.77 MV V2 max: 128.1 cm/sec MV dec slope: 830.4 cm/sec2 Ao V2 max: 111.9 cm/sec MV max P.6 mmHg Ao max P.0 mmHg MV V2 mean: 72.9 cm/sec Ao V2 mean: 75.6 cm/sec MV mean P.7 mmHg Ao mean P.7 mmHg MV V2 VTI: 36.2 cm Ao V2 VTI: 22.3 cm MVA(VTI): 2.4 cm2 AV (velocity ratio): 1.2 LEANA(I,D): 3.8 cm2 LEANA(V,D): 3.2 cm2 LV V1 max: 113.5 cm/sec SV(LVOT): 85.7 ml PA V2 max: 91.2 cm/sec LV V1 max P.1 mmHg PA V2 mean: 72.2 cm/sec LV V1 mean P.9 mmHg LV V1 mean: 77.3 cm/sec LV V1 VTI: 27.6 cm TR max tripp: 275.6 cm/sec TR max P.4 mmHg ECHO/Echo Complete W/ Contrast Interpretation Summary Normal LV size. Moderate concentric left ventricular hypertrophy. The left ventricular ejection fraction is 70 %. Stage 1 diastolic dysfunction. Pulmonary artery systolic pressure is 35 mmHg. Contrast injection was performed. Ordering Physician: Bailey Mcdonald Referring Physician: Bailey Mcdonald Performed By: Mylene Serrano RCS 12/29/24 1304 Date _ Bernardino Mclean MD CC: JEWEL BEARING POLISHERValente Mcdonald; DO Lanie Field Date Dictated: 12/29/2412 Date Transcribed: 12/29/24 1304 Narrative Writer: Signed [facility] Work Phone: 36on 12-07-2024 36 Patient aware. Normal [facility] 36 PT stopped at the [facility], she had her BP checked at the [employer] a couple weeks ago. It was 133/68. Wanted to know if she needs to do anything? Normal [facility] Cardiology Visit Reporton Cardiology Visit Report [facility] [address] [place], [place] [address] OFFICE VISIT Date of Service: 11/21/24 MR#: [id number] Acct: [id number] Name: SHARRON TORRES Rep #: [id number] : 1945 Provider: SRIRAM mcdonald Age/Sex: 78/F Location: [facility] Status: Signed HPI HPI History of Present Illness Details: Pleasant 78-year-old lady who presents to the office today for a cardiovascular follow up visit. She has a history of hypertension, obstructive sleep apnea, history of remote pulmonary embolism who suffered a cerebrovascular accident in July of this year. It was a left paramedial pontine cerebrovascular accident. She had an echocardiogram performed which demonstrated an ejection fraction of 70% with no wall motion abnormalities and negative bubble study. There was moderate mitral calcification. She tells me that she has done well denying any chest pain or shortness of breath or paroxysmal nocturnal dyspnea or pedal edema she had previously undergone 2 heart catheterizations in 2008 in 2014 which demonstrated no obstructive coronary disease. From a cardiac standpoint, the patient is doing well. She denies any palpitations, chest pain, pressure or heaviness. She does acknowledge SOB with exertion-this is slightly worse. She denies Orthopnea, and PND. She does not have bleeding issues; no blood in urine, stool, or nosebleeds. She does acknowledge fatigue. She denies myalgias, or claudication. She does not have edema, or sudden weight gain. She denies lightheadedness, dizziness, syncopal or near syncopal episodes, and headaches. Intake Vital Signs 11/17/23 10:47 11/21/24 10:54 Height 5 ft 2 in 5 ft 2 in Weight: 164 lb BMI 29.9 BP 133/68 H Blood Pressure Location Lt brachial Position Sitting Respiration 16 Pulse 57 L Pulse Source Monitor Intake Visit Reasons: 1 Y [employer] In[employer] Required: No Accompanied by: Self Is patient in pain?: No Allergies sulfamethoxazole (From Bactrim) Allergy (Severe, Verified 11/21/24 11:09) Anaphylaxis estrogens, conjugated (From Premarin) Adverse Reaction (Verified 11/21/24 11:09) Other htn isosorbide (From Imdur) Adverse Reaction (Verified 11/21/24 11:09) Other, severe headache and vomitting levofloxacin (From Levaquin) Adverse Reaction (Verified 11/21/24 11:09) Other bilateral tendonitis raloxifene (From Evista) Adverse Reaction (Verified 11/21/24 11:09) Other- HTN solifenacin (From Vesicare) Adverse Reaction (Verified 11/21/24 11:09) Other trimethoprim (From Bactrim) Adverse Reaction (Verified 11/21/24 11:09) Other Medications ???Medication ???Instructions ???Recorded ???Confirmed ???Type atorvastatin 80 mg tablet 80 mg PO QHS HYPERLIPIDEMIA 11/21/24 History metoprolol tartrate 50 mg tablet 50 mg PO BID BLOOD PRESSURE 11/21/24 History omeprazole 20 mg capsule,delayed 20 mg PO DAILY ACID REFLUX 2 11/21/24 History release pyridoxine (vitamin B6) 100 mg 100 mg PO DAILY 10/23/21 11/21/24 History tablet aspirin 81 mg tablet,delayed 81 mg PO DAILY 04/25/22 11/21/24 H istory release (Adult Aspirin Regimen) Oral appliance #1 ea 07/18/22 11/21/24 Rx montelukast 10 mg tablet 10 mg PO DAILY 10/26/23 11/21/24 H istory acetaminophen 650 mg 650 mg PO BID 11/17/23 11/21/24 Hi story tablet,extended release (8HR Muscle Aches-Pain) ascorbate calcium (vitamin C) 500 1 g PO DAILY 11/17/23 11/21/24 Hi story mg capsule biotin 10,000 mcg capsule 10,000 mcg PO DAILY 11/17/2311/21 History cholecalciferol (vitamin D3) 10 600 unit PO DAILY 11/17/23 5 History mcg (400 unit) capsule omega-3 fatty acids 1,000 mg 2,000 mg PO DAILY SUPPLEMENT 11/1611/21/24 History capsule (Fish Oil Concentrate) hydrochlorothiazide 12.5 mg tablet 12.5 mg PO QDAY 11/21/24 5 History losartan 50 mg tablet 50 mg PO BID 11/21/24 11/21/24 His tory Have you fallen in the past year?: No [facility] Medical History Obesity Gallstones with biliary obstruction (07/2021) Deep vein thrombosis of left lower extremity (03/25/18) Stenosis of right carotid artery History of CVA (cerebrovascular accident) (07/17/21) History of pulmonary embolus (PE) (03/25/18) Essential hypertension Anemia Non-smoker CPAP (continuous positive airway pressure) dependence Biliary calculus with obstruction without cholecystitis Abdominal pain Post-menopausal Restless legs Back pain Cholelithiasis Elevated liver enzymes Pulmonary hypertension Asthma Broken jaw Hepatitis B Retinal tear Lung nodule Gout Hyperlipidemia Surgical History (Reviewed 11/21/24 @ 11:09 by Bailey Mcdonald [employer]ISHER, [employer]ER-C) History of ERCP (08/12/21) History of cholecystect (more content not included)... [facility] 3610-12-2024 36 Recent Visits Date Type Provider Dept 07/25/24 Office Visit Ramin Whitney DO [facility] 02/01/24 Office Visit Ramin Whitney DO [facility] Showing recent visits within past 365 days and meeting all other requirements Future Appointments No visits were found meeting these conditions. Showing future appointments within next 90 days and meeting all other requirements Requested Prescriptions Pending Prescriptions Disp Refills amLODIPine (Norvasc) 5 MG tablet [Pharmacy Med Name: AMLODIPINE BESYLATE 5 MG TAB] 90 tablet 3 Sig: Take 1 tablet (5 mg) by mouth daily. Provider: Ramin Whitney DO Verified pharmacy: yes Verified day(s) supplied: yes Verified refill(s) needed (previous prescription showing no refills in chart): Yes Have you received any controlled medications from any other provider? N/A Overdue for visit: No If yes - patient scheduled? Yes - 02/07/2025 Most recent labs completed in chart? Yes Hypertension: Lab Results Component Value Date NA 142 02/13/2021 K 4.9 02/13/2021 EGFR 87 07/25/2024 BUN 20 07/25/2024 CREATININE 0.72 07/25/2024 [facility] 3610-11-2024 36 Recent Visits Date Type Provider Dept 07/25/24 Office Visit Ramin Whitney DO [facility] 02/01/24 Office Visit Ramin Whitney DO [facility] Showing recent visits within past 365 days and meeting all other requirements Future Appointments No visits were found meeting these conditions. Showing future appointments within next 90 days and meeting all other requirements Requested Prescriptions Pending Prescriptions Disp Refills hydroCHLOROthiazide 12.5 MG tablet [Pharmacy Med Name: HYDROCHLOROTHIAZIDE 12.5 MG TB] 90 tablet 1 Sig: Take 1 tablet (12.5 mg) by mouth daily. Provider: Ramin Whitney DO Verified pharmacy: yes Verified day(s) supplied: yes Verified refill(s) needed (previous prescription showing no refills in chart): Yes Have you received any controlled medications from any other provider? N/A Overdue for visit: No If yes - patient scheduled? N/A Most recent labs completed in chart? N/A None [facility] Progress Noteon 08-31-2024 Progress Note Placed call to beata jenkins. Two patient identifers confirmed. Was able to speak to patient. All concerns in message have been addressed. No questions at this time. Call ended [facility] Progress Note Bp log in media for your review [facility] Progress Note The patient, Sharron Torres, identity was verified by name and . Supervising provider for clinic visit: Dr. Ramin Whitney Chief Complaint Patient presents with Blood Pressure Check Reason for visit: Elevated BP Reading at last visit Sharron Torres has validated current medications Patient states compliant with medications as written: Yes BP medication taken prior to this visit? Yes Are you having any symptoms? No Current Blood Pressure:133/70 Current Heart Rate:56 Did Blood Pressure need rechecked: no Second Blood Pressure Reading: Second Heart Rate: Assessment/Plan: There are no diagnoses linked to this encounter. elevated Future Appointments Date Time Provider Department Center 02/07/2025 8:00 AM Johnathan Da Silva PA-C [facility] Cc'd provider blood pressure readings? Yes [facility] Progress Note Blood pressure stabl e, no med changes [facility] Progress Noteon 08-15-2024 Progress Note [address] [place] [address] @[email or web address]@ Patient arrived for nurse visit today. Two patient identifiers used to confirm correct patient yes Supervising provider for clinic visit Dr. Whitney is taking Losartan 50mg (pm) and Metoprolol 100mg (am) for hypertension with excellent compliance and dizziness side effects regular Shortness of breath no Medication compliance yes Medication Reconciliation yes BP Medication taken prior to visit yes at what time 7:00am B/P Reading taken manual Home Monitoring yes Patient advised if follow up is needed, outreach will occur in 48 hours First BP:175/72 Second BP:164/76 HR:58 Normal [facility] Progress Note [facility] Two patient identifers confirmed. Was able to speak to patient. All concerns in message have been addressed. No questions at this time. Call ended [facility] Progress Note Blood pressure still too high. I recommend increasing losartan to 50 mg twice a day. Do that for 2 weeks and return for blood pressure evaluation. I also prescribed a diuretic hydrochlorothiazide which I think she will need at that time. 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 Normal [facility] 36on 08-01-2024 36 Pl[facility] to [facility]. Two patient identifers confirmed. Was able to speak to patient. All concerns in message have been addressed. No questions at this time. Call ended [facility] 36 Placed call to [facility]. Unable to reach them by phone to discuss lab results. Left detailed message to return call to discuss results. Please release information [facility] 36 ----- Message from Naomi Boston sent at 08/01/2024 7:37 AM EDT ----- ----- Message ----- From: Ramin Whitney DO Sent: 07/31/2024 6:00 PM EDT To: [facility] Clinical [place] Management Professor Lab is stable including lipid panel, glucose, as well as normal CBC, renal and liver functions. Recheck blood pressure on new meds in 1 month. No med changes otherwise Normal [facility] 36 S: Patient spoke wit h CAC nurse regarding BP concerns B:onset symptoms/concern: 07/31 A: Patient complaints of blood pressure concerns. Patient felt dizzy/ vision was blurred last night while sitting in chair, so checked BP and reading was 200/100. This morning BP was 144/84. BP taken during triage was 180/92.patient is using automatic cuff. Patient does experience shortness of breath (SOB) with exertion at baseline- but Thursday and Saturday SOB with exertion was worse than usual. . Patient did start losartan 25 mg on Thursday and stopped amlodipine 5 mg. No current dizziness/blurred vision, but patient is currently sitting/resting inchair. Denies:Chest pain, headache. R: 2nd level triage with Dr. Whitney. Per Dr. Whitney, have patient take additional losartan tablet now ( to make 50 mg) and continue 50 mg dose daily, have patient continue to check BP daily or if feeling symptomatic, call back in 7-10 days with BP update, stop meloxicam and if develops emergent symptoms have patient go to ER. Patient made aware of recommendations and is agreeable to plan. Reason for Disposition Systolic BP >= 160 OR Diastolic >= 100, and any cardiac (e.g., breathing difficulty, chest pain) or neurologic symptoms (e.g., new-onset blurred or double vision) Protocols used: Blood Pressure - [id number] [facility] 36on 07-26-2024 36 Pt scheduled in 6 wk [address] a virtual [facility] 36on 07-25-2024 36 Call patient back an d ask if she desires to begin an antidepressant treatment as we discussed a lot of issues at her office appointment and frankly I forgot to ask if she would consent to beginning such a med. [facility] 37on 07-25-2024 37 BP check with [address] [facility] ECG 12 leadon 07-25-[address] [facility] Office Visiton 07-25-2024 Follow-up visit [id number] Sharron Torres 1945 F Date Provider Department Center 07/25/2024 [id number] WHITNEY [facility] Family History Problem Relation Age of Onset Coronary artery disease Mother Comments: age 87 Stroke Mother Comments: hx of CABG High Blood Pressure Mother High Blood Pressure Father Comments: hx of CABG Heart disease Father Comments: age 66 Coronary artery disease Sister Comments: MO - CABG Coronary artery disease Brother Comments: CABG at age 40 Family Status - Relation Status Age at Mother Father Sister Alive Brother Alive Level of Service:86439 [place] OFFICE/OUTPATIENT ESTABLISHED HIGH MDM 40 MIN Reason for Visit and Comments: Follow-up [708264] - Med check [facility] Progress Noteon 07-25-2024 Progress Note [facility] - [address] [facility] [id number] Visit type: Established Patient Reason for Visit: Follow-up (Med check) Assessment / Plan: Sharron was seen today for follow-up. Diagnoses and all orders for this visit: Edema, unspecified type (Primary) Comments: Multifactorial. Probably due to NSAID and amlodipine. Changed to losartan. Essential hypertension - metoprolol tartrate (Lopressor) 50 MG tablet; Take 1 tablet (50 mg) by mouth 2 times daily. - CBC auto differential; Future - Comprehensive metabolic panel; Future - ECG 12 lead; Future - CBC auto differential - Comprehensive metabolic panel - ECG 12 lead Hypercholesterolemia Comments: Stable on Lipitor Orders: - atorvastatin (Lipitor) 80 MG tablet; Take 1 tablet (80 mg) by mouth daily. - Lipid panel; Future - TSH; Future - Lipid panel - TSH Lumbar degenerative disc disease Comments: Moderate severe, trial of meloxicam with back stretches Orders: - meloxicam (Mobic) 7.5 MG tablet; Take 1 tablet (7.5 mg) by mouth daily. Gastroesophageal reflux disease without esophagitis Comments: Stable on omeprazole Orders: - omeprazole (PriLOSEC) [address] capsule; Take 1 capsule (20 mg) by mouth daily. Do not crush or chew. NSAID long-term use Puncture wound History of CVA (cerebrovascular accident) Comments: Stable on aspirin, continue antihypertensive and lipid-lowering meds Depression, unspecified depression type First degree atrioventricular block Other orders - montelukast (Singulair) 10 MG tablet; Take 1 tablet (10 mg) by mouth Nightly. - Tdap vaccine greater than or equal to 7 years old IM - losartan (Cozaar) 25 MG tablet; Take 1 tablet (25 mg) by mouth daily. 40 Minutes spent on reviewing pertinent medical, surgical, family and social history, patient interview, physical exam, discussion of diagnosis, treatment and work-up options. Subjective: Patient ID: Sharron Torres is a 78 y.o. female. HPI hypertensive patient with history of pontine CVA 3 years ago presents for overall checkup. Has a few concerns. Developed some edema over the last 3 to 4 months but perhaps intermittent over the last year. Seem to occur with adding meloxicam daily for which she needs for her back and her neck. Has been on amlodipine for quite a while but is concerned about that contributing. History of remote left lower extremity DVT and PE as she presented with shortness of breath 7 years ago. She denies pain in her thighs or legs. Taking aspirin once a day for CVA prophylaxis Review of Systems does not feel particularly ill. No recent earache sore throat or cough. No chest pain palpitations or dyspnea. No PND orthopnea. Using a mouthpiece for her sleep apnea. Intolerant of a mask. Will be seeing cardiology this fall. Has not seen neurology in a while. Generally she feels well without TIA symptoms. Rare heartburn on meloxicam. Takes omeprazole daily does cause some loose stools. She does have a small abrasion/puncture injury to her left forearm. She is due for Adacel vaccination. Also she has questions about her developing some depression symptoms. She is mulling over past events. Seems down and sad at times. Denies change in sleep or eating habits. Allergies Allergen Reactions Sulfamethoxazole Anaphylaxis Other reaction(s): Anaphylaxis Other reaction(s): Anaphylaxis Other reaction(s): Anaphylaxis Other reaction(s): Anaphylaxis Other reaction(s): Anaphylaxis Other reaction(s): Anaphylaxis Other reaction(s): Anaphylaxis Sulfamethoxazole-Trimethoprim Anaphylaxis Other reaction(s): Other (See Comments) headache Conjugated Estrogens Other Other reaction(s): Intolerance, Other htn Other reaction(s): Other htn Other reaction(s): Other htn Increased BP Estrogens Conjugated Other reaction(s): Other htn Other reaction(s): Other htn Indomethacin Other reaction(s): Vomiting, Vomiting Isosorbide Other reaction(s): Other, severe headache and vomitting Other reaction(s): Other, severe headache and vomitting Other reaction(s): Other, severe headache and vomitting Isosorbide Nitrate Other reaction(s): Other (See Comments) headache headache Levofloxacin Other reaction(s): Other (See Comments), Other bilateral tendonitis Other reaction(s): Other bilateral tendonitis Other reaction(s): Other bilateral tendonitis Other reaction(s): Other bilateral tendonitis Tendonitis in arms Levofloxacin In D5w Other reaction(s): Other (See Comments) tendonitisis Other Raloxifene Other reaction(s): Other (See Comments), Other- HTN Hot flashes & leg cramps Other reaction(s): Other- HTN Other reaction(s): Other- HTN Other reaction(s): Other- HTN Raloxifene Hcl increases intensity of hot flashes Solifenacin Other reaction(s): Other, Other: See Comments, Other: See Comments Other reaction(s): Other Other reaction(s): (more content not included)... Normal [facility] XR Lumbar spine 2 or 3 Views on 01-10-2023 FINDINGS/IMPRESSION: Five lumbar vertebrae are present. No acute fracture or subluxation. Severe multilevel disc and loss and osteophyte formation. Dextrocurvature of the lumbar spine centered at the L3 vertebral body. Lower lumbar facet arthropathy. No spondylolisthesis. Atherosclerotic calcifications are noted within the aorta and iliac arteries. Report Dictated on Electronically Signed By: Juwan Knight MD Electronically Signed Date/Time: 01/10/2023 6:56 AM EDT [facility] Patient Name: SHARRON FAULKNER : 1945 Exam Date/Time: 01/07/2023 12:53 Procedure: XR LUMBAR SPINE 2-3 VIEWS Ordering Provider: DA SILVA JAMES Reason For Exam: LOWER BACK PAIN LUMBAR SPINE: CLINICAL INDICATION: Back pain. TECHNIQUE: AP, lateral and coned-down L5-S1. COMPARISON: None. [facility] Juwan Knight MD - 01/10/2023 Patient Name: SHARRON TORRES : 1945 Exam Date/Time: 01/07/2023 12:53 Procedure: XR LUMBAR SPINE 2-3 VIEWS Ordering Provider: DA SILVA JAMES Reason For Exam: LOWER BACK PAIN LUMBAR SPINE: CLINICAL INDICATION: Back pain. TECHNIQUE: AP, lateral and coned-down L5-S1. COMPARISON: None. IMPRESSION: FINDINGS/IMPRESSION: Five lumbar vertebrae are present. No acute fracture or subluxation. Severe multilevel disc and loss and osteophyte formation. Dextrocurvature of the lumbar spine centered at the L3 vertebral body. Lower lumbar facet arthropathy. No spondylolisthesis. Atherosclerotic calcifications are noted within the aorta and iliac arteries. Report Dictated on Electronically Signed By: Juwan Knight MD Electronically Signed Date/Time: 01/10/2023 6:[address] [facility] XR Lumbar spine 2 or 3 Views Ordered By: Juwan Knight on 01-10-2023 [facility] [employer] Work Phone: XR Lumbar spine 2 or 3 Views on 01-07-2023 Radiology Study observation (narrative) [facility] Comprehensive metabolic 1998 panelon 07-01-2022 Albumin [Mass/Vol] 4.0 g/dL 3.6 - 5.1 g/dL [facility] ALP [Catalytic activity/Vol] 112 U/L 37 - 153 U/L [facility] ALT [Catalytic activity/Vol] 23 U/L 6 - 29 U/L [facility] Anion gap [Moles/Vol] 7 mmol/L [facility] AST [Catalytic activity/Vol] 21 U/L 10 - 35 U/L [facility] Bilirubin [Mass/Vol] 0.8 mg/dL 0.2 - 1.2 mg/dL [facility] Calcium [Mass/Vol] 8.8 mg/dL 8.6 - 10.4 mg/dL [facility] Chloride [Moles/Vol] 105 mmol/L 98 - 110 mmol/L [facility] CO2 [Moles/Vol] 28 mmol/L 20 - 32 mmol/L [facility] Creatinine [Mass/Vol] 0.88 mg/dL 0.60 - 1.00 mg/dL [facility] GFR/1.73 sq M.predicted among non-blacks MDRD (S/P/Bld) [Vol rate/Area] 69 mL/min/{1.73_m2} > OR = 60 mL/min/1.73m [address] [facility] Comment on above: The eGFR is based on the CKD-EPI 2020 equation. To calculate the new eGFR from a previous Creatinine or Cystatin C result, go to https://www.kidney.org/professionals/ kdoqi/gfr%5Fcalculator Glucose [Mass/Vol] 90 mg/dL 65 - 99 mg/dL [facility] Comment on above: Fasting reference interval Potassium [Moles/Vol] 4.3 mmol/L 3.5 - 5.3 mmol/L [facility] Protein [Mass/Vol] 6.1 g/dL 6.1 - 8.1 g/dL [facility] Sodium [Moles/Vol] 140 mmol/L 135 - 146 mmol/L [facility] Urea nitrogen [Mass/Vol] 18 mg/dL 7 - 25 mg/dL [facility] ANES POSTPROC EVALon 022 ANES POSTPROC EVAL HNO ID: [id number] Author: Cele Easley APRN.EMILIO Service: ? Author Type: Nurse Cnc Mill Programmer Type: Anesthesia Postprocedure Evaluation Filed: 02/05/2022 8:56 AM Note Text: POST ANESTHESIA EVALUATION NOTE : 1945 Procedure Summary Date: 02/05/22 Room / Location: Ambulatory Surgery Anesthesia Start: 829 Anesthesia Stop: 855 Procedure: COLONOSCOPY DIAGNOSTIC Diagnosis: Diarrhea, unspecified type Elevated fecal calprotectin (Clinically significant diarrhea of unexplained origin) Scheduled Providers: Manuel Ponce MD Responsible Provider: Cele Easley APRN.CRNA Anesthesia Type: MAC ASA Status: 3 Anesthesia Type: MAC Last Vitals Vitals Value Taken Time BP 106/59 02/05/22 0849 Temp 36.1 ?C (97 ?F) 02/05/22 0849 Pulse 67 02/05/22 0849 Resp 16 02/05/22 0849 SpO2 92 % 02/05/22 0849 Post Anesthesia Patient Status Patient Evaluation: PACU. PACU/ICU Patient Condition: stable. Anticipated Disposition: phase 2 then home. Neurological Status: sleepy but arousable. Pulmonary Status: breathing comfortably on room air Airway Control: returned to baseline unsupported. Cardiovascular Status: stable. Pain Management: clinically adequate - multimodal analgesia pain management approach Postoperative Hydration: acceptable. Intraoperative Events: no significant anesthesia events Post Operative Nausea/Vomiting Status: no significant post operative nausea or vomiting Anesthetic Observations: Recommendation: continue current plan of care. Anesthesia Observations No Documentation SIGNATURE: Cele Easley APRN.TEXTILE MACHINERY SALES REPRESENTATIVE PATIENT NAME: Sharron Torres DATE: February 05, 2022 TIME: 8:56 AM CSN: [id number] Normal [facility] ANES PRE-OPon 02-05-2022 ANES PRE-OP HNO ID: [id number] Author: Cele Easley APRN.TEXTILE MACHINERY SALES REPRESENTATIVE Service: ? Author Type: Nurse Cnc Mill Programmer Type: Anesthesia Preprocedure Evaluation Filed: 02/05/2022 8:29 AM Note Text: ANESTHESIOLOGY DAY OF SURGERY NOTE : 1945 Procedure Information Date/Time: 02/05/22829 Scheduled providers: Manuel Ponce MD Procedure: COLONOSCOPY DIAGNOSTIC Location: Ambulatory Surgery Estimated body mass index is 30.91 kg/m? as calculated from the following: Height as of this encounter: 157.5 cm (5' 2). Weight as of this encounter: 76.7 kg (169 lb). Most recent hematocrit and potassium results: Hematocrit 42.5 08/25/2021 Potassium 4.4 08/28/2021 Relevant Problems No relevant active problems I - PHYSICAL EVALUATION AIRWAY Patient intubated: No. Tracheostomy tube not present Mallampati: II. TM distance: >3 FB. Neck ROM: full ROM without neurological symptoms. Mouth opening: adequate. Short neck: no. Thick neck: no DENTAL Dental findings: teeth intact. Additional exam findings: no II - ANESTHESIA PLAN ASA Score: 3 Anesthetic Plan: MAC The patient is not a current smoker. NPO Status: adequate Monitoring plan: standard ASA. Postoperative analgesic plan: parenteral or oral opioids and multimodal analgesia. Informed Consent Anesthetic risks, benefits, alternatives, personnel and consent discussed: yes. Patient / Responsible Constitution Party agrees to proceed: yes Patient / Surrogate agrees to blood products: blood products not planned Significant changes in the patient condition since the History and Physical, not otherwise documented in primary service progress note: no. Vitals Value Taken Time BP 131/53 02/05/22 0807 Pulse 64 02/05/22 0807 Resp 16 02/05/22 0807 Temp 36.4 ?C (97.5 ?F) 02/05/22 0807 SpO2 95 % 02/05/22 0807 Outpatient Medications as of 02/05/2022 Medication Sig - omeprazole (PRILOSEC) 40 mg capsule Take 1 capsule by mouth once daily. (Patient taking differently: Take 10 mg by mouth once daily. ) - amLODIPine (NORVASC) 5 mg tablet Take 5 mg by mouth once daily. - azelastine (ASTELIN) 0.1% nasal spray twice daily as needed. - DOCOSAHEXANOIC ACID/EPA (FISH OIL ORAL) Take by mouth. - metoprolol succinate XL, long acting, 50 mg ORAL 24 hr tablet Take 50 mg by mouth twice daily. - atorvastatin calcium(LIPITOR 80 MG TAB) one tablet daily - COMPOUNDED PRESCRIPTION Use 1 Drop in both eyes once daily as needed. hydroxpropyl methylcellulose - aspirin(ECOTRIN LOW STRENGTH 81 MG TAB) Take one (1) tablet daily. - pyridoxine hcl(VITAMIN B-6 100 MG TAB) Take one(1) tablet daily.=dosage is 50 mg. No current facility-administered medications on file as of 02/05/2022. I have interviewed and examined the patient. I have reviewed the medical record and/or the pre-anesthesia evaluation, pertinent labs, and test results. This contains updated information obtained within 48 hours of Surgery/Procedure. SIGNATURE: Cele Easley APRN.TEXTILE MACHINERY SALES REPRESENTATIVE PATIENT NAME: Sharron Torres DATE: February 05, 2022 TIME: 8:29 AM CSN: [id number] Normal [facility] ANES PREOPon 02-05-2022 ANES PREOP HNO ID: [id number] Author: Manuel Ponce MD Service: Gastroenterology Author Type: Physician Type: Anesthesia PreOp Filed: 02/05/2022 8:22 AM Note Text: HISTORY AND PHYSICAL Sharron Torres, 76 year old female Current history and physical on file: No Is a new History and Physical required for today's visit? Yes Indication for procedure: Diarrhea PROCEDURE(S) SCHEDULED FOR: Colonoscopy with or without biopsies and with or without removal of polyps or lesions, dilation (any means), treatment of bleeding (any means), based on clinical findings. BASELINE BEHAVIOR: Calm BASELINE ORIENTATION: A AND O x3 All medications and allergies reviewed: Yes Skin Assessment: Warm dry mucus membranes pink Airway/Respiratory Assessment: Airway: visualization of the uvula- Yes Mouth: opening greater than 2 fingerbreadths- Yes Neck: full range of motion- Yes Breath sounds clear/equal- Yes Cardiac Assessment: Regular rate and rhythm without murmur Abdominal Assessment: Abdomen soft, non-tender, no masses or organomegaly. Sedation Plan: Moderate Additional Comments: None Manuel Ponce MD Normal [facility] Colonoscopyon 02-05-2022 Colonoscopy [facility] Patient Name: Sharron Torres Procedure Date: 02/05/2022 8:24 AM Date of : 1945 Admit Type: Outpatient Age: 76 Room: [place] [address] Gender: Female Note Status: Finalized Attending MD: Manuel Ponce MD Procedure: Colonoscopy Indications: Clinically significant diarrhea of unexplained origin Providers: Manuel Ponce MD Patient Profile: Last Colonoscopy: several years ago. Referring Physician: Belem Whelan (Referring MD) Medicines: Monitored Anesthesia Care Complications: No immediate complications. Requesting Provider: Procedure: Pre-Anesthesia Assessment: - Prior to the procedure, a History and Physical was performed, and patient medications and allergies were reviewed. The patient's tolerance of previous anesthesia was also reviewed. The risks and benefits of the procedure and the sedation options and risks were discussed with the patient. All questions were answered, and informed consent was obtained. Prior Anticoagulants: The patient has taken Plavix (clopidogrel), last dose was 7 days prior to procedure. ASA Grade Assessment: III - A patient with severe systemic disease. After reviewing the risks and benefits, the patient was deemed in satisfactory condition to undergo the procedure. After I obtained informed consent, the scope was passed under direct vision. Throughout the procedure, the patient's blood pressure, pulse, and oxygen saturations were monitored continuously. The Colonoscope was introduced through the anus and advanced to the cecum, identified by appendiceal orifice and ileocecal valve. I was present and participated during the entire procedure, including non-kulkarni portions, and during the administration and monitoring of Moderate Sedation. The colonoscopy was performed without difficulty. The patient tolerated the procedure well. The quality of the bowel preparation was good. The ileocecal valve, appendiceal orifice, and rectum were photographed. Moderate Sedation: MAC anesthesia was administered by the anesthesia team. Findings: Multiple small-mouthed diverticula were found in the sigmoid colon. Normal mucosa was found in the entire colon. Biopsies were taken with a cold forceps for histology. Verification of patient identification for the specimen was done. Estimated blood loss was minimal. Impression: - Diverticulosis in the sigmoid colon. - Normal mucosa in the entire examined colon. Biopsied. Recommendation: - Patient has a contact number available for emergencies. The signs and symptoms of potential delayed complications were discussed with the patient. Return to normal activities tomorrow. Written discharge instructions were provided to the patient. - Resume previous diet. - Continue present medications. - Await pathology results. - Repeat colonoscopy in 5 years for screening purposes. - Return to GI clinic as previously scheduled. - The patient has taken no previous anticoagulant or antiplatelet agents. Procedure Code(s): --- Professional --- 79257, Colonoscopy, flexible; with biopsy, single or multiple CPT copyright 2019 [employer]. All rights reserved. The codes documented in this report are preliminary and upon mat cutter review may be revised to meet current compliance requirements. Attending Participation: I personally performed the entire procedure. Scope In: 8:34:07 AM Scope Out: 8:42:15 AM MD Manuel Ricks MD 02/05/2022 8:50:41 AM This report has been signed electronically by Manuel Ponce MD Number of Addenda: 0 Note Initiated On: 02/05/2022 8:24 AM Estimated Blood Loss: Estimated blood loss was minimal. Normal [facility] SURGICAL PATHOLOGYon 022 CASE REPORT Normal [facility] Comment on above: Order Comment: Rhina peguero Type: TISSUE SPECIMEN Ordering Facility: [facility] Address: [address] [place] [address] Result Comment: Surg ica Pathology Report Case: [id number] Authorizing Provider: Manuel Ponce MD Collected: 02/05/2022 10:16 AM Ordering Location: Ambulatory Surgery Received: 02/05/2022 08:08 PM Pathologist: Shavon Polo MD Specimen: COLON BIOPSY, random Performed By: #### S #### [facility] CLIA [id number] [address] [place] [address] OF [facility] FINAL DIAGNOSIS Normal [facility] Comment on above: Order Comment: Rhina peguero Type: TISSUE SPECIMEN Ordering Facility: [facility] Address: [address] [place] [address] Result Comment: carlos Campos, biopsy: - Colonic mucosa with no diagnostic abnormality. - No evidence of microscopic colitis. Performed By: #### S #### [facility] [place] [id number] [address] [place] [address] OF [facility] FINAL PERFORMING LAB Normal [facility] Comment on above: Order Comment: Speci men Type: TISSUE SPECIMEN Ordering Facility: [facility] Address: [address] [place] [address] Result Comment: Diag nostic interpretation performed at [facility], [address] [place] [address] CLIA# [id number] Veterinary Practice Manager: Valentin Galloway M.D. Performed By: #### S #### [facility] [place] [id number] [address] [place] [address] GROSS DESCRIPTION A. COLON BIOPSY Normal [facility] Comment on above: Order Comment: Speci men Type: TISSUE SPECIMEN Ordering Facility: [facility] Address: [address] [place] [address] Result Comment: Rece ived in formalin are multiple pieces of benavides-pink, soft tissue aggregating to 1.5 x 0.3 x 0.2 cm. Totally submitted in one cassette. Gross examination performed at [facility], [address] [place] [address] JT 02/06/2022 12:13 AM Performed By: #### S #### [facility] [place] [id number] [address] [place] [address] OF [place] CNCOon 12-27-2021 CNCO Letter Text Normal [facility] CNPLandy 12-26-2021 CNPN Telephone (GSTNOR) SHARRON TORRES ([id number]) 1945 F Date Time Provider Department 12/26/21 BELEM WHELAN During your visit today, we recorded the following information about you: Belem Whelan PA-C 12/26/2021 8:50 AM Signed Called Sharron to discuss stool testing. Calprotectin is elevated at 884.1. Discussed the potential options of this today. Recommend Colonoscopy for further evaluation. Patient is willing to proceed. Colonoscopy order placed for ASC w/ Miralax bowel prep, can we please get her scheduled? Thanks! Allergies As of Date: 12/26/2021 Noted Allergy Reaction SULFAMETHOXAZOLE 03/03/2014 10 - Anaphylaxis Comments: Other reaction(s): Anaphylaxis Other reaction(s): Anaphylaxis environmental [Other] 08/02/2008 Comments: ragweed= sneezing, itching, watery eyes EVISTA (RALOXIFENE HCL) 08/02/2008 Comments: increases intensity of hot flashes IMDUR (ISOSORBIDE MONONITRATE) 09/06/2009 Comments: headache INDOMETHACIN 09/06/2009 11 - Vomiting LEVAQUIN (LEVOFLOXACIN) 09/06/2009 Comments: Tendonitis in arms PREMARIN (CONJUGATED ESTROGENS) 03/13/2011 5 - Intolerance Comments: Increased BP SOLIFENACIN 02/23/2019 14 - Other: See Comments Comments: Other reaction(s): Other Other reaction(s): Other TRIMETHOPRIM 02/23/2019 14 - Other: See Comments Comments: Other reaction(s): Other Other reaction(s): Other Date Reviewed: 12/19/2021 Reviewed by: Belem Whelan PA-C - Fully Assessed Reason for Visit: Results [95] Prescriptions as of 12/26/2021 - omeprazole (PRILOSEC) 40 mg capsule Take 1 capsule by mouth once daily. - amLODIPine (NORVASC) 5 mg tablet Take 5 mg by mouth once daily. - azelastine (ASTELIN) 0.1% nasal spray twice daily as needed. - DOCOSAHEXANOIC ACID/EPA (FISH OIL ORAL) Take by mouth. - metoprolol succinate XL, long acting, 50 mg ORAL 24 hr tablet Take 50 mg by mouth twice daily. - atorvastatin calcium(LIPITOR 80 MG TAB) one tablet daily - COMPOUNDED PRESCRIPTION Use 1 Drop in both eyes once daily as needed. hydroxpropyl methylcellulose - aspirin(ECOTRIN LOW STRENGTH 81 MG TAB) Take one (1) tablet daily. - pyridoxine hcl(VITAMIN B-6 100 MG TAB) Take one(1) tablet daily.=dosage is 50 mg. Problem List As Of Date 12/26/2021 Noted Resolved Symptomatic Menopausal or Female Climacteric St*09/06/2009 Postmenopausal Atrophic Vaginitis [N95.2] 09/06/2009 Inverted nipple [N64.59] 03/13/2011 Dyspareunia [VNP3084] 01/02/2012 Postmenopausal bleeding [N95.0] 01/02/2012 Furuncle of groin [L02.224] 01/02/2012 Candidiasis of skin and nails [B37.2] 01/02/2012 Choledocholithiasis [K80.50] 08/09/2021 Obesity, Class II, BMI 35-39.9 [E66.9] 08/13/2021 Encounter Status:Closed by BELEM WHELAN on 12/26/21 Normal [facility] C diff Tox gens Stl Ql DEAN+p robeon 12-23-2021 C. difficile toxin genes DEAN+probe Ql (Stl) Negative Normal Negative for C. difficile toxin by PCR [facility] Comment on above: Order Comment: Speci men Type: STOOL SPECIMENOrdering Facility: External Submitter Address: , , Performed By: #### 5 4067-4 ####[facility] LAB[facility] [id number] [place] [address] [place] Calprotectin Stl-mCnton 08-0 Calprotectin (Stl) [Mass/Mass] 884.1 mg/kg High 0-50 [facility] Comment on above: Order Comment: Speci men Type: STOOL SPECIMENOrdering Facility: External Submitter Address: , , Result Comment: INTE RPRETIVE INFORMATION: Calprotectin, Fecal <50.0 mg/kg : Normal 50.0-120.0 mg/kg: Borderline. Test should be re-evaluated in 4-6 wks. >120.0 mg/kg: Abnormal Performed By: #### 3 8445-3 ####[facility] LABIA [id number] [place] [id number] [place] FAT, FECAL QUALon 12-23-2021 FAT, FECAL - NEUTRAL Normal Normal Normal [facility] Comment on above: Order Comment: Speci men Type: STOOL SPECIMENOrdering Facility: External Submitter Address: , , Performed By: #### F FATQL ####[facility] [id number] [place] [address] FAT, FECAL - SPLIT Normal Normal Normal [facility] Comment on above: Order Comment: Speci men Type: STOOL SPECIMENOrdering Facility: External Submitter Address: , , Result Comment: INTE RPRETIVE INFORMATION: Fecal Fat Qualitative Neutral fats include the monoglycerides, diglycerides, and triglycerides while split fats are the free fatty acids that are liberated from them. Impaired synthesis or secretion of pancreatic enzymes or bile may cause an increase in neutral fats while an increase in split fats suggests impaired absorption of nutrients. Performed By: [employer] [address] [place] [address] Veterinary Practice Manager: Sebas Cruz MD, PhD Performed By: #### F FATQL ####[facility] [id number] [place] [address] PANC ELASTASE, FECALon 12-23 PANC ELASTASE, FECAL 384 ug/g Normal >=100 [facility] Comment on above: Order Comment: Speci men Type: STOOL SPECIMENOrdering Facility: External Submitter Address: , , Result Comment: REFE RENCE INTERVAL: Pancreatic Elastase Fecal by Immunoassay Less than 100 ug/g............Severe insufficiency 100 - 199 ug/g................Moderate insufficiency 200 ug/g or greater...........Normal INTERPRETIVE INFORMATION: Pancreatic Elastase Fecal by Immunoassay Reference intervals do not apply for infants less than one month old. Performed by [employer], [address] [place] [id number] [email or web address], Sebas Cruz MD, PHD, Lab. Director Performed By: #### P [facility] ####[facility] [id number] [place] [address] CAITLYNOVon 12-19-2021 CNOV Office Visit (GSTNOR ) SHARRON TORRES ([id number]) 1945 F Date Time Provider Department 12/19/21 9:00 AM BELEM WHELAN During your visit today, we recorded the following information about you: Pulse Blood pressure Weight Height 66/minute 122/64 76.7 kg 1.575 m Belem Whelan PA-C 12/19/2021 9:21 AM Signed CHIEF COMPLAINT: Patient presents with: Diarrhea: Explosive and watery since Sat. Labs 09/24/21 ERCP 08/12/21 HPI Sharron Hale Zoila is a 76 year old female here today for Diarrhea (Explosive and watery since Sat. Labs 09/24/21 ERCP 08/12/21) PMHx of dyspareunia, choledocholithiasis, obesity is present today. Patient tells me that she has been dealing with diarrhea since stopping Ursodiol. Happening after eating. Can go numerous times a day and waking her up at night. Some times happens after not eating. No abdominal pain. No bloody or black stools. Stools are very watery. Stools are benavides now, no bloody or black stools. No recent nausea or vomiting. Ate a tomato x2 over the weekend which seemed to trigger her symptoms. Weight is down some. Getting some hunger, scared to eat. Not feeling bloated or gassy. Taking Imodium x2 daily, does seem to work. Taking Omeprazole and probiotic. No recent antibiotics. On Plavix since July from stroke. ERCP 08/09/2021: Pre-Op/Pre-Procedure Diagnosis: Abdominal pain with jaundice ? 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 Specimens: See above ? EBL: None ? Complications: None ? Recommendations:1. NPO for next 4 hours, if no symptoms, then start on clears 2. Lactated Ringer's @ 250 ml/ hour x 8 hours 3. If the patient experiences abdominal pain with or without nausea and vomiting, please check lipase and inform the endoscopist as they may be at risk for post-ERCP pancreatitis or perforation. 4 Monitor for GI bleeding, fever, chills 5. Follow on LFT's in AM Component Latest Ref Rng AND Units 08/25/2021 WBC 3.70 - 11.00 k/uL 9.27 RBC 3.90 - 5.20 m/uL 5.06 Hemoglobin 11.5 - 15.5 g/dL 13.2 Hematocrit 36.0 - 46.0 % 42.5 MCV 80.0 - 100.0 fL 84.0 MCH 26.0 - 34.0 pg 26.1 MCHC 30.5 - 36.0 g/dL 31.1 RDW-CV 11.5 - 15.0 % 16.6 (H) Platelet Count 150 - 400 k/uL 488 (H) MPV 9.0 - 12.7 fL 9.4 Absolute nRBC <0.01 k/uL <0.01 CRP <0.9 mg/dL 1.4 (H) WSR 0 - 20 mm/hr 41 (H) Current Outpatient Medications Medication Sig - omeprazole (PRILOSEC) 40 mg capsule Take 1 capsule by mouth once daily. (Patient taking differently: Take 10 mg by mouth once daily. ) - amLODIPine (NORVASC) 5 mg tablet Take 5 mg by mouth once daily. - azelastine (ASTELIN) 0.1% nasal spray twice daily as needed. - DOCOSAHEXANOIC ACID/EPA (FISH OIL ORAL) Take by mouth. - metoprolol succinate XL, long acting, 50 mg ORAL 24 hr tablet Take 50 mg by mouth twice daily. - atorvastatin calcium(LIPITOR 80 MG TAB) one tablet daily - COMPOUNDED PRESCRIPTION Use 1 Drop in both eyes once daily as needed. hydroxpropyl methylcellulose - aspirin(ECOTRIN LOW STRENGTH 81 MG TAB) Take one (1) tablet daily. - pyridoxine hcl(VITAMIN B-6 100 MG TAB) Take one(1) tablet daily.=dosage is 50 mg. No current facility-administered medications for this visit. ALLERGIES Allergen Reactions - Sulfamethoxazole Anaphylaxis Other reaction(s): Anaphylaxis Other reaction(s): Anaphylaxis - Environmental [Othe* ragweed= sneezing, itching, watery eyes - Evista [Raloxifene * increases intensity of hot flashes - Imdur [Isosorbide M* headache - Indomethacin Vomiting - Levaquin [Levofloxa* Tendonitis in arms - Premarin [Conjugate* Intolerance Increased BP - Solifenacin Other: See Comments Other reaction(s): Other Other reaction(s): Other - Trimethoprim Other: See Comments Other reaction(s): Other Other reaction(s): Other Social History Tobacco Use - Smoking status: Never Smoker - Smokeless tobacco: Never Used Substance Use Topics - Alcohol use: No - Drug use: No PAST MEDICAL HISTORY Diagnosis Date - Anemia 05/2020 - Gout - H/O blood clots 2017 - History of combined right and left heart catheterization 2019 - History of esophagogastroduodenoscopy (EGD) 09/12/2020 - PMH - PAST MEDICAL HISTORY OF elevated cholesterol - PMH - PAST MEDICAL HISTORY OF asthma, as child and teen - PMH - PAST MEDICAL HISTORY OF 05/18/1976 hepatitis - PMH - PAST MEDICAL HISTORY OF 05/18/1976 fractured jaw - PMH - PAST MEDICAL HISTORY OF 05/18/2008 stress test - PMH - PAST MEDICAL HISTORY OF 05/18/2006 back pain - PMH - PAST MEDICAL HISTORY OF 05/18/2008 tendenitis=both forarms. - Postmenopausal bleeding 04/17/2007 Postmenop. bleeding - Sleep apnea - Unspecified essential hypertension Esse (more content not included)... Normal [facility] Hepatic function 2000 panelo n 12-19-2021 Albumin [Mass/Vol] 4.0 g/dL Normal 3.9-4.9 [facility] Comment on above: Order Comment: Speci men Type: BLOOD SPECIMENOrdering Facility: [facility] Address: [address] [place] [address] Performed By: #### 2 4325-3 ####[facility] MILLTOWNCLIA [id number] [place] [address] [place] ALP [Catalytic activity/Vol] 153 U/L High 34-123 [facility] Comment on above: Order Comment: Speci men Type: BLOOD SPECIMENOrdering Facility: [facility] Address: [address] [place] [address] Performed By: #### 2 4325-3 ####[facility] MILLTOWNCLIA [id number] [place] [address] [place] ALT [Catalytic activity/Vol] 20 U/L Normal 7-38 [facility] Comment on above: Order Comment: Speci men Type: BLOOD SPECIMENOrdering Facility: [facility] Address: [address] [place] [address] Performed By: #### 2 4325-3 ####[facility]ITAL[facility]CL[facility] [id number] [place] [address] [place] AST [Catalytic activity/Vol] 20 U/L Normal 13-35 [facility] Comment on above: Order Comment: Speci men Type: BLOOD SPECIMENOrdering Facility: [facility] Address: [address] [place] [address] Performed By: #### 2 4325-3 ####[facility]ITAL[facility]CLIA [id number] [place] [address] [place] Bilirubin [Mass/Vol] 0.6 mg/dL Normal 0.2-1.3 [facility] Comment on above: Order Comment: Speci men Type: BLOOD SPECIMENOrdering Facility: [facility] Address: [address] [place] [address] Performed By: #### 2 4325-3 ####[facility] MILLTOWNCLIA [id number] [place] [address] [place] Bilirubin.conjuga kat [Mass/Vol] mg/dL Normal <0.2 [facility] Comment on above: Order Comment: Speci men Type: BLOOD SPECIMENOrdering Facility: [facility] Address: [address] [place] [address] Performed By: #### 2 4325-3 ####[facility] SOUTHNCLIA [id number] [place] [address] [place] [facility] Protein [Mass/Vol] 6.6 g/dL Normal 6.3-8.0 [facility] Comment on above: Order Comment: Speci men Type: BLOOD SPECIMENOrdering Facility: [facility] Address: [address] [place] [address] Performed By: #### 2 4325-3 ####[facility] S[facility]THNCLIA [id number] [place] [address] [place] [facility] Comprehensive metabolic 2000 panelon 08-28-2021 Albumin [Mass/Vol] 4.2 g/dL Normal 3.9-4.9 [facility] Comment on above: Order Comment: Speci men Type: BLOOD SPECIMENOrdering Facility: [facility] Address: [address] [place] [address] Performed By: #### 2 4323-8 ####[facility] S[facility]THNCLIA [id number] [place] [address] [place] ALP [Catalytic activity/Vol] 312 U/L High 34-123 [facility] Comment on above: Order Comment: Speci men Type: BLOOD SPECIMENOrdering Facility: [facility] Address: [address] [place], [place] [address] Performed By: #### 2 4323-8 ####[facility]TH[facility]CL[facility] [id number] [address] STATES OF [place] ALT [Catalytic activity/Vol] 43 U/L High 7-38 [facility] Comment on above: Order Comment: Speci men Type: BLOOD SPECIMENOrdering Facility: [facility] Address: [address] [place] [address] Performed By: #### 2 4323-8 ####[facility] JOSE ALIA [id number] [place] [address] [place] Anion gap [Moles/Vol] 9 mmol/L Normal 9-18 [facility] Comment on above: Order Comment: Speci men Type: BLOOD SPECIMENOrdering Facility: [facility] Address: [address] [place] [address] Performed By: #### 2 4323-8 ####[facility] ANAMWMAHILIA [id number] [place] [address] [place] AST [Catalytic activity/Vol] 27 U/L Normal 13-35 [facility] Comment on above: Order Comment: Speci men Type: BLOOD SPECIMENOrdering Facility: [facility] Address: [address] [place] [address] Performed By: #### 2 4323-8 ####[facility] ANAMWNCLIA [id number] [place] [address] [place] Bilirubin [Mass/Vol] 0.6 mg/dL Normal 0.2-1.3 [facility] Comment on above: Order Comment: Speci men Type: BLOOD SPECIMENOrdering Facility: [facility] Address: [address] [place] [address] Performed By: #### 2 4323-8 ####[facility] MILLWNCLIA [id number] [place] [address] [place] Calcium [Mass/Vol] 9.3 mg/dL Normal 8.5-10.2 [facility] Comment on above: Order Comment: Speci men Type: BLOOD SPECIMENOrdering Facility: [facility] Address: [address] [place] [address] Performed By: #### 2 4323-8 ####[facility] ANAMWNCLIA [id number] [place] [address] [place] Chloride [Moles/Vol] 102 mmol/L Normal 97-105 [facility] Comment on above: Order Comment: Speci men Type: BLOOD SPECIMENOrdering Facility: [facility] Address: [address] [place] [address] Performed By: #### 2 4323-8 ####[facility] [id number] [place] [address] [place] CO2 [Moles/Vol] 24 mmol/L Normal 22-30 [facility] Comment on above: Order Comment: Speci men Type: BLOOD SPECIMENOrdering Facility: [facility] Address: [address] [place] [address] Performed By: #### 2 4323-8 ####[facility] [id number] [place] [address] [place] Creatinine [Mass/Vol] 0.77 mg/dL Normal 0.58-0.96 [facility] Comment on above: Order Comment: Speci men Type: BLOOD SPECIMENOrdering Facility: [facility] Address: [address] [place] [address] Performed By: #### 2 4323-8 ####[facility] S[facility]THNCLIA [id number] [address] STATES OF [facility] ESTIMATED GLOMERULAR FILTRATION RATE 82 mL/min/1.73m??? Normal >=60 [facility] Comment on above: Order Comment: Speci men Type: BLOOD SPECIMENOrdering Facility: [facility] Address: [address] [place] [address] Result Comment: Shani mated Glomerular Filtration Rate (eGFR) is calculated using the 2020 CKD-EPI creatinine equation. This equation utilizes serum creatinine, sex, and age as parameters. The creatinine assay has traceable calibration to isotope dilution-mass spectrometry. Refer to KDIGO guidelines for clinical interpretation. In patients with unstable renal function, e.g. those with acute kidney injury, the eGFR may not accurately reflect actual GFR. Performed By: #### 2 4323-8 ####[facility]ITALWNCLIA [id number] [place] [address] [place] Glucose [Mass/Vol] 156 mg/dL High 74-99 [facility] Comment on above: Order Comment: Rhina men Type: BLOOD SPECIMENOrdering Facility: [facility] Address: [address] [place], [place] [id number] Result Comment: The [place] Diabetes Association (ADA) provides guidance for cutoff values for fasting glucose and random glucose. The ADA defines fasting as no caloric intake for at least 8 hours. Fasting plasma glucose results between 100 to 125 mg/dL indicate increased risk for diabetes (prediabetes). Fasting plasma glucose results greater than or equal to 126 mg/dL meet the criteria for diagnosis of diabetes. In the absence of unequivocal hyperglycemia, results should be confirmed by repeat testing. In a patient with classic symptoms of hyperglycemia or hyperglycemic crisis, random plasma glucose results greater than or equal to 200 mg/dL meet the criteria for diagnosis of diabetes. Reference: Standards of Medical Care in Diabetes 2016, [place] Diabetes Association. Diabetes Care. 2016.39(Suppl 1). Performed By: #### 2 4323-8 ####[facility] S[facility]THNCLIA [id number] [place] [address] [place] Potassium [Moles/Vol] 4.4 mmol/L Normal 3.7-5.1 [facility] Comment on above: Order Comment: Rhina peguero Type: BLOOD SPECIMENOrdering Facility: [facility] Address: [address] [place] [address] Performed By: #### 2 4323-8 ####[facility] S[facility]THNCLIA [id number] [place] [address] [place] Protein [Mass/Vol] 7.7 g/dL Normal 6.3-8.0 [facility] Comment on above: Order Comment: Speci men Type: BLOOD SPECIMENOrdering Facility: [facility] Address: [address] [place] [address] Performed By: #### 2 4323-8 ####[facility] JENNIFERNCLINaomi [id number] [address] [place] Sodium [Moles/Vol] 135 mmol/L Low 136-144 [facility] Comment on above: Order Comment: Speci men Type: BLOOD SPECIMENOrdering Facility: [facility] Address: [address] [place] [address] Performed By: #### 2 4323-8 ####[facility] JENNIFERNCLINaomi [id number] [address] [place] Urea nitrogen [Mass/Vol] 23 mg/dL High 7-21 [facility] Comment on above: Order Comment: Speci men Type: BLOOD SPECIMENOrdering Facility: [facility] Address: [address] [place] [address] Performed By: #### 2 4323-8 ####[facility] MARIA DEL CARMENNCLIA [id number] [address] OF [place] ALLIED HEALTHon 08-25-2021 ALLIED HEALTH HNO ID: [id number] Author: RT Julio César(R) Service: Radiology Author Type: Varitypist Type: Allied Health Filed: 08/25/2021 9:50 AM Note Text: Radiology Service Progress Note PATIENT NAME: Sharron Torres DATE OF SERVICE: August 25, 2021 TIME: 9:50 AM PATIENT IDENTITY VERIFICATION COMPLETED USING TWO (2) IDENTIFIERS: Name and Date of confirmed by patient verbally and Name and Date of confirmed by identification band. FALL SCREENING: Has the patient had 2 falls in the last year or 1 fall with injury or currently using an Ambulatory Assistive Device (Walker, Cane, Wheelchair, Crutches, etc.)? Emergency Room Patient: Screened in ED PATIENT GENDER DATA: Female. status: : No status: NO. PATIENT RELEVANT IMPLANT DATA REVIEWED: Not Applicable RADIOLOGY DEPARTMENT: General X-ray: Exam(s) Completed: Lower Extremity X-Ray(s): Ankle, Right and Foot, Right PERIPHERAL IV DATA: Not applicable SIGNED BY: RT Julio César(R) August 25, 2021 9:50 AM Normal [facility] CBC panel Auto (Bld)on 08-25 Erythrocyte distribution width (RBC) [Ratio] 16.6 % High 11.5-15.0 [facility] Comment on above: Order Comment: Speci men Type: BLOOD SPECIMEN [facility] Address: [address] [place] [address] Performed By: #### 5 8410-2 #### [facility] CLIA [id number] [address] Hematocrit (Bld) [Volume fraction] 42.5 % Normal 36.0-46.0 [facility] Comment on above: Order Comment: Speci men Type: BLOOD SPECIMEN [facility] Facility[facility] Address: [address] [place] [address] Performed By: #### 5 8410-2 #### [facility] CLIA [id number] [address] Hemoglobin (Bld) [Mass/Vol] 13.2 g/dL Normal 11.5-15.5 [facility] Comment on above: Order Comment: Speci men Type: BLOOD SPECIMEN [facility] Facility[facility] Address: [address] [place] [address] Performed By: #### 5 8410-2 #### [facility] CLIA [id number] [address] MCH (RBC) [Entitic mass] 26.1 pg Normal 26.0-34.0 [facility] Comment on above: Order Comment: Speci men Type: BLOOD SPECIMEN [facility] Address: [address] [place] [address] Performed By: #### 5 8410-2 #### [facility] CLIA [id number] 1 05 [address] MCHC (RBC) [Mass/Vol] 31.1 g/dL Normal 30.5-36.0 [facility] Comment on above: Order Comment: Speci men Type: BLOOD SPECIMEN Ordering Facility: [facility] Address: [address] [place] [address] Performed By: #### 5 8410-2 #### [facility] CLIA [id number] [address] MCV (RBC) [Entitic vol] 84.0 fL Normal 80.0-100.0 [facility] Comment on above: Order Comment: Speci men Type: BLOOD SPECIMEN Ordering Facility: [facility] Address: [address] [place] [address] Performed By: #### 5 8410-2 #### [facility] CLIA [id number] [address] Nucleated RBC (Bld) [#/Vol] 10*3/uL Normal <0.01 [facility] Comment on above: Order Comment: Speci men Type: BLOOD SPECIMEN Ordering Facility: [facility] Address: [address] [place] [address] Performed By: #### 5 8410-2 #### [facility] CLIA [id number] [address] Platelet mean volume (Bld) [Entitic vol] 9.4 fL Normal 9.0-12.7 [facility] Comment on above: Order Comment: Speci men Type: BLOOD SPECIMEN Ordering Facility: [facility] Address: [address] [address] Performed By: #### 5 8410-2 #### [facility] CLIA [id number] [address] Platelets (Bld) [#/Vol] 488 10*3/uL High 150-400 [facility] Comment on above: Order Comment: Speci men Type: BLOOD SPECIMEN Ordering Facility: [facility] Address: [address] [address] Performed By: #### 5 8410-2 #### [facility] CLIA [id number] [address] [facility] RBC (Bld) [#/Vol] 5.06 10*6/uL Normal 3.90-5.20 [facility] Comment on above: Order Comment: Speci men Type: BLOOD SPECIMEN Ordering Facility: [facility] Address: [address] [place] [address] Performed By: #### 5 8410-2 #### [facility] CLIA [id number] [address] WBC (Bld) [#/Vol] 9.27 10*3/uL Normal 3.70-11.00 [facility] Comment on above: Order Comment: Speci men Type: BLOOD SPECIMEN Ordering Facility: [facility] Address: [address] [place] [address] Performed By: #### 5 8410-2 #### [facility] CLIA [id number] [address] CRP SerPl-mCncon 08-25-2021 CRP [Mass/Vol] 1.4 mg/dL High <0.9 [facility] Comment on above: Order Comment: Speci men Type: BLOOD SPECIMEN Ordering Facility: [facility] Address: [address] [place] [address] Performed By: #### 1 988-5, 3084-1 #### [facility] CLIA [id number] [address] ED NOTEon 08-25-2021 ED NOTE HNO ID: [id number] Author: Orlin Bradley RN Service: Emergency Medicine Author Type: Registered Nurse Type: ED Notes Filed: 08/25/2021 12:31 PM Note Text: Patient ambulatory in hallway with family member, no distress noted. Normal [facility] ED NOTE HNO ID: [id number] Author: Orlin Bradley RN Service: ? Author Type: Registered Nurse Type: ED Notes Filed: 08/25/2021 9:47 AM Note Text: Bed: 35-ED Expected date: Expected time: Means of arrival: Comments: mya [facility] ED NOTE HNO ID: [id number] Author: Monica Rodríguez RN Service: Emergency Medicine Author Type: Registered Nurse Type: ED Notes Filed: 08/25/2021 9:35 AM Note Text: ED XRAY notified pt ready. Normal [facility] ED PROV NOTEon 08-25-2021 ED PROV NOTE HNO ID: [id number] Author: Griselda Calhoun MD Service: Emergency Medicine Author Type: Physician Type: ED Provider Notes Filed: 08/25/2021 10:56 AM Note Text: The patient presents to the emerge department with onset of medial right ankle pain, swelling, and redness. It started 2 days ago and she has increased pain with ambulation. The patient was recently admitted to the hospital where some of her routine medications were discontinued and she was started on some new ones. She has a history of gout in the past. The medication that she normally takes for it was discontinued while she was in the hospital. She has not had a gouty flare for many years and it is always affected her toes. Her vital signs are stable and she is afebrile with a room air pulse ox of 95%. She has a 4 cm x 2 and half centimeter area of mild erythema over and posterior to the right medial malleolus. There are no other sites of tenderness or swelling. Her Achilles tendon is intact by palpation. Neurovascular status is intact. X-rays demonstrate some arthritic changes, but no fractures. We will assess a CBC, uric acid, and CRP. We will also provide her with intravenous analgesia and steroids. She is currently in stable condition. Griselda Calhoun MD 08/25/21 1056 [facility] ED PROV NOTE HNO ID: [id number] Author: Griselda Calhoun MD Service: Emergency Medicine Author Type: Physician Type: ED Provider Notes Filed: 08/25/2021 1:32 PM Note Text: ED Provider Note Patient Name: Sharron Torres : 1945 SERVICE DATE: 08/25/21 History Patient presents with: Ankle Pain: pt c/o right ankle pain and swelling since thursday evening, pt denies injury, increased pain with ambulation HPI The patient is a 75 yo female with HTN, HLD, gout, and stroke who presents with right ankle swelling and pain for 2 days. It is associated with tingling and numbing and as non-traumatic. Her pain is worse with standing or ambulation. She denies fevers, cough, SOB, calf tenderness, or leg swelling. Her previous gout episodes affected her toes, and she hasn't had an episode in many years. She was recently admitted in the hospital and has not been taking her fish oils for gout for a week or two following hospital discharge. PAST MEDICAL HISTORY Diagnosis Date - Anemia 05/2020 - Gout - H/O blood clots 2017 - History of combined right and left heart catheterization 2019 - History of esophagogastroduodenoscopy (EGD) 09/12/2020 - PMH - PAST MEDICAL HISTORY OF elevated cholesterol - PMH - PAST MEDICAL HISTORY OF asthma, as child and teen - PMH - PAST MEDICAL HISTORY OF 05/18/1976 hepatitis - PMH - PAST MEDICAL HISTORY OF 05/18/1976 fractured jaw - PMH - PAST MEDICAL HISTORY OF 05/18/2008 stress test - PMH - PAST MEDICAL HISTORY OF 05/18/2006 back pain - PMH - PAST MEDICAL HISTORY OF 05/18/2008 tendenitis=both forarms. - Postmenopausal bleeding 04/17/2007 Postmenop. bleeding - Sleep apnea - Unspecified essential hypertension Essential hypertension PAST SURGICAL HISTORY Procedure Laterality Date - ADENOIDECTOMY PRIMARY Adenoidectomy - CATARACT SURGERY, COMPLEX Right 11/2015 - COLONOSCOPY GEN ANES 2017 - DILATION AND CURETTAGE DXAND/THER NONOBSTETRIC 1983 Dilation AND curettage and cauterized a lesion - EGD TRANSORAL BIOPSY SINGLE/MULTIPLE 09/12/2020 - LASER SURGERY OF EYE 2008 right eye - LIG/TRNSXJ FLP TUBE ABDL/VAG APPR UNI/BI 1975 - PAST SURGICAL HISTORY OF 1997, 2008 heart cath. - PAST SURGICAL HISTORY OF 2004 bilateral bunionectomy - PAST SURGICAL HISTORY OF 2006 colonoscopy - REMOVAL GALLBLADDER 2019 - SKIN BIOPSY HX Basil cell removal 04/2017 - TONSILLECTOMY PRIMARY/SECONDARY Tonsillectomy FAMILY HISTORY Problem Relation Age of Onset - Heart Mother - Hypertension Mother - Heart Father - Hypertension Father - Heart Sister - Heart Brother Social History Tobacco Use - Smoking status: Never Smoker - Smokeless tobacco: Never Used Substance and Sexual Activity - Alcohol use: No - Drug use: No - Sexual activity: Yes Partners: Male control/protection: Tubal Ligation ALLERGIES Allergen Reactions - Sulfamethoxazole Anaphylaxis Other reaction(s): Anaphylaxis Other reaction(s): Anaphylaxis - Environmental [Othe* ragweed= sneezing, itching, watery eyes - Evista [Raloxifene * increases intensity of hot flashes - Imdur [Isosorbide M* headache - Indomethacin Vomiting - Levaquin [Levofloxa* Tendonitis in arms - Premarin [Conjugate* Intolerance Increased BP Review of Systems Constitutional: Negative for chills, fatigue and fever. HENT: Negative for congestion and sore throat. Respiratory: Positive for shortness of breath (chronic ). Negative for cough and wheezing. Cardiovascular: Negative for chest pain and leg swelling. Gastrointestinal: Positive for diarrhea (Chronic). Negative for abdominal pain, nausea and vomiting. Genitourinary: Negative for difficulty urinating, dysuria, frequency and urgency. Musculoskeletal: Positive for back pain. R ankle swelling and pain Skin: Negative for color change and wound. Neurological: Negative for dizziness, weakness, light-headedness and headaches. Physical Exam Vitals [08/25/21 0933] BP Pulse Temp Temp src Resp SpO2 Weight Height 144/94 79 36.7 ?C (98.1 ?F) Oral 16 95 % 79.4 kg (175 lb) 1.575 m (5' 2) Physical Exam Vitals reviewed. Constitutional: General: She is not in acute distress. Appearance: Normal appearance. HENT: Head: Normocephalic and atraumatic. Cardiovascular: Rate and Rhythm: Normal rate and regular rhythm. Pulses: Normal pulses. Heart sounds: Normal heart sounds. Pulmonary: Effort: Pulmonary effort is normal. Breath sounds: Normal breath sounds. Abdominal: General: Abdomen is flat. Palpations: Abdomen is soft. Musculoskeletal: General: Swelling and tenderness present. No deformity or signs of injury. Right lower leg: No edema. Left lower leg: No edema. Comments: Medial R ankle with erythema, swelling and tenderness to palpation Pulses and sensation intact Limited range of motion secondary to pain and swelling Skin: General: Skin is warm and dry (more content not included)... Normal [facility] ESR Westergren method (Bld) [Velocity]on 08-25-2021 ESR (Bld) [Velocity] 41 mm/h High 0-20 [facility] Comment on above: Order Comment: Speci men Type: BLOOD SPECIMEN Ordering Facility: [facility] Address: [address] [place] [address] Performed By: #### 1 988-5, 3084-1 #### [facility] CLIA [id number] [address] [place] Urate SerPl-mCncon 2 Urate [Mass/Vol] 7.0 mg/dL High 2.5-6.6 [facility] Comment on above: Order Comment: Speci men Type: BLOOD SPECIMEN Ordering Facility: [facility] Address: [address] [place] [address] Performed By: #### 1 988-5, 3084-1 #### [facility] CLIA [id number] [address] [place] XR ANKLE 3V AP/LAT/OBL RTon 08-25-2021 XR ANKLE 3V AP/LAT/OBL RT * * *Final Report* * * DATE OF EXAM: Aug 25 2021 9:51AM [id number] - XR ANKLE 3V AP/LAT/OBL RT / PROCEDURE REASON: Ankle pain, initial exam * * * * Physician Interpretation * * * * RIGHT ANKLE 3 VIEWS CLINICAL DATA: Ankle pain. COMPARISON: None. FINDINGS: Study shows no evidence of fracture or subluxation. The ankle mortise is preserved. There is no joint space narrowing. There are no radiopaque foreign bodies. Spurring is noted at the inferior portion of the right calcaneus. IMPRESSION: Unremarkable views of the right ankle. Right calcaneal spurring. Narrative Writer: JAROD Transcribe Date/Time: Aug 25 2021 9:53A Dictated by : BRUCE KRUSE MD This examination was interpreted and the report reviewed and electronically signed by: BRUCE KRSUE MD on Apr 10 2022 9:56AM EST [id number] Normal [facility] XR FOOT 3V AP/LAT/OBL RTon 0 08-25-2021 XR FOOT 3V AP/LAT/OBL RT * * *Final Report* * * DATE OF EXAM: Aug 25 2021 9:51AM [id number] - XR FOOT 3V AP/LAT/OBL RT / PROCEDURE REASON: Bone pain, foot * * * * Physician Interpretation * * * * CLINICAL INDICATION: Pain TECHNIQUE: 3 view radiographic study of the right foot COMPARISON: None FINDINGS: Moderate to severe first metatarsal phalangeal joint osteoarthritis with moderately severe joint space narrowing, subchondral sclerosis, subchondral microcystic change and marginal osteophyte formation. No acute fracture or dislocation identified. Plantar calcaneal enthesophyte. 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 Plantar calcaneal enthesophyte. Narrative Writer: JAROD Transcribe Date/Time: Aug 25 2021 9:55A Dictated by : GANGA HERNANDEZ MD This examination was interpreted and the report reviewed and electronically signed by: GANGA HERNANDEZ MD on Aug 25 2021 9:57AM EST [id number] Normal [facility] ANES POSTPROC EVALon 022 ANES POSTPROC EVAL HNO ID: [id number] Author: Blu Fierro MD Service: Anesthesiology Author Type: Physician Type: Anesthesia Postprocedure Evaluation Filed: 08/16/2021 7:24 AM Note Text: POST ANESTHESIA EVALUATION NOTE : 1945 Procedure Summary Date: 08/12/21 Room / Location: [place] [facility] Anesthesia Start: 1712 Anesthesia Stop: 1808 Procedure: ERCP Diagnosis: Scheduled Providers: Jadiel Graff MD Responsible Provider: Blu Fierro MD Anesthesia Type: general ASA Status: 3 Anesthesia Type: general Airway Type: ETT Last Vitals Vitals Value Taken Time BP 166/52 08/12/21 1845 Temp 36.7 ?C (98.1 ?F) 08/12/21 1830 HR SpO2 66 08/12/21 1845 Resp 12 08/12/21 1845 SpO2 94 % 08/12/21 1845 Post Anesthesia Patient Status Patient Evaluation: bedside. Neurological Status: aware and responsive. Pulmonary Status: breathing comfortably on supplemental oxygen Airway Control: returned to baseline unsupported. Cardiovascular Status: stable. Pain Management: clinically adequate Postoperative Hydration: acceptable. Intraoperative Events: no significant anesthesia events Post Operative Nausea/Vomiting Status: no significant post operative nausea or vomiting Anesthetic Observations: Recommendation: continue current plan of care. Anesthesia Observations No Documentation SIGNATURE: Blu Fierro MD PATIENT NAME: Sharron Torres DATE: August 16, 2021 TIME: 7:24 AM CSN: [id number] [facility] 08-14-2021 [facility] Telephone ([facility]) SHARRON TORRES ([id number]) 1945 F Date Time Provider Department 08/14/21 [facility] During your visit today, we recorded the following information about you: Allergies As of Date: 08/14/2021 Noted Allergy Reaction SULFAMETHOXAZOLE 03/03/2014 10 - Anaphylaxis Comments: Other reaction(s): Anaphylaxis Other reaction(s): Anaphylaxis environmental [Other] 08/02/2008 Comments: ragweed= sneezing, itching, watery eyes EVISTA (RALOXIFENE HCL) 08/02/2008 Comments: increases intensity of hot flashes IMDUR (ISOSORBIDE MONONITRATE) 09/06/2009 Comments: headache INDOMETHACIN 09/06/2009 11 - Vomiting LEVAQUIN (LEVOFLOXACIN) 09/06/2009 Comments: Tendonitis in arms PREMARIN (CONJUGATED ESTROGENS) 03/13/2011 5 - Intolerance Comments: Increased BP Date Reviewed: 08/12/2021 Reviewed by: Alison Nunez RN - Fully Assessed Reason for Visit: Follow Up Phone Call [[phone]] Cmt: Post Discharge F/U ? attempt made. No answer. Prescriptions as of 08/14/2021 - ursodiol (ADONAY) 250 mg tablet Take 1.5 tablets by mouth twice daily. - omeprazole (PRILOSEC) 40 mg capsule Take 1 capsule by mouth once daily. - sucralfate (CARAFATE) 1 gram tablet Take 1 tablet by mouth before meals and at bedtime. - amLODIPine (NORVASC) 5 mg tablet Take 5 mg by mouth once daily. - azelastine (ASTELIN) 0.1% nasal spray twice daily as needed. - DOCOSAHEXANOIC ACID/EPA (FISH OIL ORAL) Take by mouth. - metoprolol succinate XL, long acting, 50 mg ORAL 24 hr tablet Take 50 mg by mouth twice daily. - atorvastatin calcium(LIPITOR 80 MG TAB) one tablet daily - COMPOUNDED PRESCRIPTION Use 1 Drop in both eyes once daily as needed. hydroxpropyl methylcellulose - aspirin(ECOTRIN LOW STRENGTH 81 MG TAB) Take one (1) tablet daily. - pyridoxine hcl(VITAMIN B-6 100 MG TAB) Take one(1) tablet daily.=dosage is 50 mg. Problem List As Of Date 08/14/2021 Noted Resolved Symptomatic Menopausal or Female Climacteric St*09/06/2009 Postmenopausal Atrophic Vaginitis [N95.2] 09/06/2009 Inverted nipple [N64.59] 03/13/2011 Dyspareunia [GPT4252] 01/02/2012 Postmenopausal bleeding [N95.0] 01/02/2012 Furuncle of groin [L02.224] 01/02/2012 Candidiasis of skin and nails [B37.2] 01/02/2012 Choledocholithiasis [K80.50] 08/09/2021 Obesity, Class II, BMI 35-39.9 [E66.9] 08/13/2021 Encounter Status:Closed by SHRADDHA GENAO on 08/14/21 Normal [facility] Basic metabolic 2000 panelon 08-13-2021 Anion gap [Moles/Vol] 14 mmol/L Normal 9-18 [facility] Comment on above: Order Comment: Speci men Type: BLOOD SPECIMEN Ordering Facility: [facility] Address: [address] [place] [id number] Performed By: #### [facility], [address]-5 #### [facility] CLIA [id number] [address] Calcium [Mass/Vol] 9.0 mg/dL Normal 8.5-10.2 [facility] Comment on above: Order Comment: Speci men Type: BLOOD SPECIMEN Ordering Facility: [facility] Address: [address] [place] [address] Performed By: #### H FP, 41653-1 #### [facility] CLIA [id number] [address] [place] Chloride [Moles/Vol] 98 mmol/L Normal 97-105 [facility] Comment on above: Order Comment: Speci men Type: BLOOD SPECIMEN Ordering Facility: [facility] Address: [address] [place] [address] Performed By: #### H FP, 11611-1 #### [facility] CLIA [id number] [address] [place] CO2 [Moles/Vol] 24 mmol/L Normal 22-30 [facility] Comment on above: Order Comment: Speci men Type: BLOOD SPECIMEN Ordering Facility: [facility] Address: [address] [place] [address] Performed By: #### H FP, 87401-0 #### [facility] CLIA [id number] [address] [place] Creatinine [Mass/Vol] 0.77 mg/dL Normal 0.58-0.96 [facility] Comment on above: Order Comment: Speci men Type: BLOOD SPECIMEN Ordering Facility: [facility] Address: [address] [place] [address] Performed By: #### H FP, 59837-8 #### [facility] CLIA [id number] [address] [place] ESTIMATED GLOMERULAR FILTRATION RATE 82 mL/min/1.73m??? Normal >=60 [facility] Comment on above: Order Comment: Speci men Type: BLOOD SPECIMEN Ordering Facility: [facility] Address: [address] [place] [address] Result Comment: Shani mated Glomerular Filtration Rate (eGFR) is calculated using the 2020 CKD-EPI creatinine equation. This equation utilizes serum creatinine, sex, and age as parameters. The creatinine assay has traceable calibration to isotope dilution-mass spectrometry. Refer to KDIGO guidelines for clinical interpretation. In patients with unstable renal function, e.g. those with acute kidney injury, the eGFR may not accurately reflect actual GFR. Performed By: #### H SARAY, 38999-7 #### [facility] CLIA [id number] [address] [place] [address] [place] Glucose [Mass/Vol] 103 mg/dL High 74-99 [facility] Comment on above: Order Comment: Rhina peguero Type: BLOOD SPECIMEN Ordering Facility: [facility] Address: [address] [place], [place] [id number] Result Comment: The [place] Diabetes Association (ADA) provides guidance for cutoff values for fasting glucose and random glucose. The ADA defines fasting as no caloric intake for at least 8 hours. Fasting plasma glucose results between 100 to 125 mg/dL indicate increased risk for diabetes (prediabetes). Fasting plasma glucose results greater than or equal to 126 mg/dL meet the criteria for diagnosis of diabetes. In the absence of unequivocal hyperglycemia, results should be confirmed by repeat testing. In a patient with classic symptoms of hyperglycemia or hyperglycemic crisis, random plasma glucose results greater than or equal to 200 mg/dL meet the criteria for diagnosis of diabetes. Reference: Standards of Medical Care in Diabetes 2016, [place] Diabetes Association. Diabetes Care. 2016.39(Suppl 1). Performed By: #### H SARAY, 36277-3 #### [facility] CLIA [id number] [address] [place] Potassium [Moles/Vol] 3.5 mmol/L Low 3.7-5.1 [facility] Comment on above: Order Comment: Rhina peguero Type: BLOOD SPECIMEN Ordering Facility: [facility] Address: [address] [place], [place] [id number] Performed By: #### H SARAY, 89491-6 #### [facility] CLIA [id number] [address] [place] [address] [place] Sodium [Moles/Vol] 136 mmol/L Normal 136-144 [facility] Comment on above: Order Comment: Speci men Type: BLOOD SPECIMEN Ordering Facility: [facility] Address: [address] [address] Performed By: #### H SARAY, 43373-9 #### [facility] CLIA [id number] [address] [place] Urea nitrogen [Mass/Vol] 7 mg/dL Normal 7-21 [facility] Comment on above: Order Comment: Speci men Type: BLOOD SPECIMEN Ordering Facility: [facility] Address: [address] [address] Performed By: #### [place], [address]-7 #### [facility] CLIA [id number] [address] [place] CBC panel Auto (Bld)on 08-13 Erythrocyte distribution width (RBC) [Ratio] 16.6 % High 11.5-15.0 [facility] Comment on above: Order Comment: Speci men Type: BLOOD SPECIMEN Ordering Facility: [facility] Address: [address] [place] [address] Performed By: #### 5 8410-2 #### [facility] CLIA [id number] [address] [place] Hematocrit (Bld) [Volume fraction] 42.3 % Normal 36.0-46.0 [facility] Comment on above: Order Comment: Speci men Type: BLOOD SPECIMEN Ordering Facility: [facility] Address: [address] [address] Performed By: #### 5 8410-2 #### [facility] CLIA [id number] [address] [place] Hemoglobin (Bld) [Mass/Vol] 12.7 g/dL Normal 11.5-15.5 [facility] Comment on above: Order Comment: Speci men Type: BLOOD SPECIMEN Ordering Facility: [facility] Address: [address] [address] Performed By: #### 5 8410-2 #### [facility] CLIA [id number] [address] MCH (RBC) [Entitic mass] 25.7 pg Low 26.0-34.0 [facility] Comment on above: Order Comment: Speci men Type: BLOOD SPECIMEN Ordering Facility: [facility] Address: [address] [place] [address] Performed By: #### 5 8410-2 #### [facility] CLIA [id number] [address] MCHC (RBC) [Mass/Vol] 30.0 g/dL Low 30.5-36.0 [facility] Comment on above: Order Comment: Speci men Type: BLOOD SPECIMEN Ordering Facility: [facility] Address: [address] [place] [address] Performed By: #### 5 8410-2 #### [facility] CLIA [id number] [address] MCV (RBC) [Entitic vol] 85.6 fL Normal 80.0-100.0 [facility] Comment on above: Order Comment: Speci men Type: BLOOD SPECIMEN Ordering Facility: [facility] Address: [address] [place] [address] Performed By: #### 5 8410-2 #### [facility] CLIA [id number] [address] Nucleated RBC (Bld) [#/Vol] 10*3/uL Normal <0.01 [facility] Comment on above: Order Comment: Speci men Type: BLOOD SPECIMEN Ordering Facility: [facility] Address: [address] [place] [address] Performed By: #### 5 8410-2 #### [facility] CLIA [id number] [address] Platelet mean volume (Bld) [Entitic vol] 9.4 fL Normal 9.0-12.7 [facility] Comment on above: Order Comment: Speci men Type: BLOOD SPECIMEN Ordering Facility: [facility] Address: [address] [place] [address] Performed By: #### 5 8410-2 #### [facility] CLIA [id number] [address] Platelets (Bld) [#/Vol] 244 10*3/uL Normal 150-400 [facility] Comment on above: Order Comment: Speci men Type: BLOOD SPECIMEN Ordering Facility: [facility] Address: [address] [place] [address] Performed By: #### 5 8410-2 #### [facility] CLIA [id number] [address] RBC (Bld) [#/Vol] 4.94 10*6/uL Normal 3.90-5.20 [facility] Comment on above: Order Comment: Speci men Type: BLOOD SPECIMEN Ordering Facility: [facility] Address: [address] [place] [address] Performed By: #### 5 8410-2 #### [facility] CLIA [id number] [address] WBC (Bld) [#/Vol] 8.71 10*3/uL Normal 3.70-11.00 [facility] Comment on above: Order Comment: Speci men Type: BLOOD SPECIMEN Ordering Facility: [facility] Address: [address] [place] [address] Performed By: #### 5 8410-2 #### [facility] CLIA [id number] [address] CNDSon 08-13-2021 CNDS HNO ID: [id number] Author: José Miguel Borges MD Service: General Surgery Author Type: Resident Type: Discharge Summary Filed: 08/13/2021 3:30 PM Note Text: Attestation signed by Hnas Santiago MD at 08/13/2021 6:37 PM I saw and evaluated the patient. Discussed with the resident and agree with resident's findings and plan as documented in the resident's note. August 13, 2021 Hans Santiago MD 6:37 PM Plan of care discussed with: Provider, RN, Patient. DISCHARGE SUMMARY PATIENT NAME: Sharron Torres Code Status: Not on file Highest Readmission Risk Score: 11 The 30 day readmissions risk score is derived from an internally validated risk model which evaluates patient level characteristics, utilization history, medication orders and lab results up until the day of discharge. Patients with a score of 40 or above are considered highest risk for readmission. Specific patient level drivers will be listed at the bottom of the summary. Admission Information Admission Information ADMIT DATE: 08/09/2021 DISCHARGE DATE: August 13, 2021 MY DOCTORS AND MEDICAL TEAM: My Main Hospital Doctor: Hans Santiago MD Primary Care Provider: Chevy Matthew DO My Medical Team Members: Treatment Team: Attending Provider: Hans Santiago MD Consulting: Umberto Connell MD MY CONDITION AT DISCHARGE: Stable REASON I WAS IN THE HOSPITAL: Stone in common bile duct SUMMARY OF WHAT HAPPENED WHILE I WAS IN THE HOSPITAL: Patient was admitted on 08/09 with a gallstone in your bile duct. We gave you IV antibiotics, and treated your pain. You continued to be stable on the nursing floor. The major case detective took you to the OR on 08/12 for an ERCP (procedure) to help clear out your duct of any stones. You tolerated this well. The next day you were able to tolerate a diet, and were ready for discharge with you pain well controlled. OTHER PROBLEMS/DIAGNOSIS: Active Problems: Choledocholithiasis Obesity, Class II, BMI 35-39.9 Resolved Problems: * No resolved hospital problems. * OPERATIONS PERFORMED WHILE IN THE HOSPITAL: None IMPORTANT TEST/PROCEDURES: ERCP TEST RESULTS NOT AVAILABLE AT THIS TIME: No pending results Discharge Disposition Discharge Disposition: Home With Self Care Activity When You Leave the Hospital Resume pre-hospital activity Diet Instructions Resume your pre-hospital diet For Pain When You Leave the Hospital Use acetaminophen (Tylenol) as recommended on the bottle Use ibuprofen (Motrin, Advil) as recommended on the bottle Call Your Doctor If You have lightheadedness, fainting, or confusion Your temperature is greater than 101F Follow Up Appointments Follow-Up Appointment When: In 2 weeks Patient/Parents to call for appointment?: Yes Hans Santiago MD [phone] [address] PCP Requested Referral Additional Provider to Provider Information: Patient was admitted on 08/09 with a gallstone in your bile duct. We gave you IV antibiotics, and treated your pain. You continued to be stable on the nursing floor. The major case detective took you to the OR on 08/12 for an ERCP (procedure) to help clear out your duct of any stones. You tolerated this well. The next day you were able to tolerate a diet, and were ready for discharge with you pain well controlled. Treatment Team: Attending Provider: Hans Santiago MD Consulting: Umberto Connell MD FOLLOW-UP APPOINTMENTS ALREADY SCHEDULED WITH A [facility] PROVIDER: No future appointments. ALLERGIES Allergen Reactions - Sulfamethoxazole Anaphylaxis Other reaction(s): Anaphylaxis Other reaction(s): Anaphylaxis - Environmental [Othe* ragweed= sneezing, itching, watery eyes - Evista [Raloxifene * increases intensity of hot flashes - Imdur [Isosorbide M* headache - Indomethacin Vomiting - Levaquin [Levofloxa* Tendonitis in arms - Premarin [Conjugate* Intolerance Increased BP DISCHARGE MEDICATION: Current Discharge Medication List START taking these medications ursodiol (ADONAY) 375 mg Take 375 mg by mouth twice daily. Qty: 90 tablet Refills: 0 CONTINUE these medications which have NOT CHANGED omeprazole (PriLOSEC) 40 mg Take 40 mg by mouth once daily. Qty: 30 capsule Refills: 2 amLODIPine (NORVASC) 5 mg Take 5 mg by mouth once daily. metoprolol succinate ER (TOPROL XL) 50 mg Take 50 mg by mouth twice daily. atorvastatin calcium(LIPITOR 80 MG TAB) one tablet daily Refills: 0 aspirin(ECOTRIN LOW STRENGTH 81 MG TAB) Take one (1) tablet daily. Refills: 0 sucralfate (CARAFATE) 1 g Take 1 g by mouth before meals and at bedtime. Qty: 100 tablet Refills: 0 azelastine (ASTELIN) 0.1% nasal spray twice daily as needed. DOCOSAHEXANOIC ACID/EPA (FISH OIL ORAL) Take by mouth. COM (more content not included)... Normal [facility] CONSULT PROGon 08-13-2021 CONSULT PROG HNO ID: [id number] Author: Vita Hillman PA-C Service: Gastroenterology Author Type: Physician Breeding Technician Type: Consult Progress Note Filed: 08/13/2021 3:44 PM Note Text: GI CONSULT PROGRESS NOTE SERVICE DATE: 08/13/2021 SERVICE TIME: 11:49 AM CONSULTING SERVICE: Gastroenterology Subjective INTERVAL HISTORY: GI following for obstructive jaundice. Patient seen and examined this morning. She is feeling significantly better. Tolerated liquid diet this morning. No abdominal pain. Was nauseous after ERCP last night but not this morning. Denied emesis. MEDICATIONS: Current Facility-Administered Medications Medication Dose Route Frequency - atorvastatin 80 mg tab(s) (LIPITOR) 80 mg ORAL DAILY - metoprolol succinate ER 50 mg tab(s) (TOPROL XL) 50 mg ORAL BID - amLODIPine 5 mg tab(s) (NORVASC) 5 mg ORAL DAILY - sodium chloride 0.9 % (flush) 3-5 mL (BD POSIFLUSH) 3-5 mL INTRAVENOUS q 12 H - NaCl 0.9% iv flush bag 20 mL INTRAVENOUS PRN - lactated ringers iv infusion 75 mL/hr INTRAVENOUS CONTINUOUS - ondansetron 4 mg tab(s) (ZOFRAN) 4 mg ORAL q 6 H PRN Or - ondansetron (PF) 4 mg injection (ZOFRAN) 4 mg INTRAVENOUS q 6 H PRN - acetaminophen 1,000 mg tab(s) (TYLENOL) 1,000 mg ORAL q 6 H - oxyCODONE IR 5-10 mg tab(s) (ROXICODONE) 5-10 mg ORAL q 4 H PRN - piperacillin-tazobactam 3.375 g in D5W 50 mL Vial-Bag (ZOSYN) 3.375 g INTRAVENOUS q 6 H - [MAR Hold due to Transfer] pantoprazole 40 mg injection (PROTONIX) 40 mg INTRAVENOUS DAILY (6 AM) - pantoprazole 40 mg injection (PROTONIX) 40 mg INTRAVENOUS BID - enoxaparin 40 mg injection (LOVENOX) 40 mg SUBCUTANEOUS q 24 HR Objective PHYSICAL EXAM: VITALS:BP 168/78 Pulse 70 Temp 36.6 ?C (97.9 ?F) (Oral) Resp 16 Ht 157.5 cm (5' 2) Wt 88.8 kg (195 lb 12.3 oz) SpO2 92% BMI 35.81 kg/m? ABDOMEN: soft, non-tender to palpation DATA: Diagnostic tests reviewed for today's visit: Most recent labs and imaging results. CBC, Coags, BMP, Mg, Phos Recent Labs 08/13/2172908/12/21 0808/11/21 0608/11/21 0053 WBC 8.71 8.86 -- 10.50 HB 12.7 12.5 -- 11.2* HCT 42.3 40.2 -- 37.6 PLT 244 235 -- 225 NA 136 139 139 -- K 3.5* 3.7 3.6* -- CHLOR 98 105 107* -- CO2 24 24 23 -- BUN 7 6* 8 -- CREAT 0.77 0.75 0.82 -- GLUC 103* 106* 112* -- CA 9.0 8.8 8.2* -- CSF AND Dilantin Liver Function, Amylase, AND Lipase Recent Labs 08/13/2172908/12/21 0808/11/21 06 TPROT 6.6 6.3 5.6* ALB 3.3* 3.1* 2.9* ALT 73* 79* 96* AST 69* 49* 55* ALKPHOS 502* 279* 219* TBILI 3.5* 1.9* 2.8* Cardiac Enzymes ABGs Impression/Recommendations Impression: 1. 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 SIGNATURE: Vita Hillman PA-C PATIENT NAME: Sharron Torres DATE: August 13, 2021 TIME: 11:49 AM PAGER/CONTACT #: [email or web address] Normal [facility] HEPATIC FUNCTION PNLon 08-13 Albumin [Mass/Vol] 3.3 g/dL Low 3.9-4.9 [facility] Comment on above: Order Comment: Speci men Type: BLOOD SPECIMEN Ordering Facility: [facility] Address: [address] [place] [address] Performed By: #### H FP, 01866-4 #### [facility] CLIA [id number] [address] [facility] ALP [Catalytic activity/Vol] 502 U/L High 34-123 [facility] Comment on above: Order Comment: Speci men Type: BLOOD SPECIMEN Ordering Facility: [facility] Address: [address] [place] [address] Performed By: #### H FP, 28355-9 #### [facility] CLIA [id number] [address] ALT With P-5'-P [Catalytic activity/Vol] 73 U/L High 7-38 [facility] Comment on above: Order Comment: Speci men Type: BLOOD SPECIMEN Ordering Facility: [facility] Address: [address] [address] Performed By: #### H FP, 69035-8 #### [facility] CLIA [id number] [address] AST With P-5'-P [Catalytic activity/Vol] 69 U/L High 13-35 [facility] Comment on above: Order Comment: Speci men Type: BLOOD SPECIMEN Ordering Facility: [facility] Address: [address] [place] [address] Performed By: #### H FP, 47082-7 #### [facility] CLIA [id number] [address] Bilirubin [Mass/Vol] 3.5 mg/dL High 0.2-1.3 [facility] Comment on above: Order Comment: Speci men Type: BLOOD SPECIMEN Ordering Facility: [facility] Address: [address] [place] [address] Performed By: #### H FP, 73012-6 #### [facility] CLIA [id number] [address] Bilirubin.conjuga kat [Mass/Vol] 2.9 mg/dL High <0.2 [facility] Comment on above: Order Comment: Speci men Type: BLOOD SPECIMEN Ordering Facility: [facility] Address: [address] [place] [address] Performed By: #### H FP, 00504-1 #### [facility] CLIA [id number] [address] [facility] Protein [Mass/Vol] 6.6 g/dL Normal 6.3-8.0 [facility] Comment on above: Order Comment: Speci men Type: BLOOD SPECIMEN Ordering Facility: [facility] Address: [address] [place] [address] Performed By: #### H FP, 58995-7 #### [facility] CLIA [id number] [address] [place] ANES PRE-OPon 08-12-2021 ANES PRE-OP HNO ID: [id number] Author: Nani Elaine MD Service: Anesthesiology Author Type: Physician Type: Anesthesia Preprocedure Evaluation Filed: 08/12/2021 4:34 PM Note Text: ANESTHESIOLOGY DAY OF SURGERY NOTE : 1945 Procedure Information Date/Time: 08/12/21 1645 Scheduled providers: Jadiel Graff MD Procedure: ERCP Location: [facility] Estimated body mass index is 35.81 kg/m? as calculated from the following: Height as of this encounter: 157.5 cm (5' 2). Weight as of this encounter: 88.8 kg (195 lb 12.3 oz). 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 Mallampati: II. TM distance: >3 FB. Neck ROM: full ROM without neurological symptoms. Mouth opening: adequate. DENTAL Dental findings: teeth intact. II - ANESTHESIA PLAN ASA Score: 3 Anesthetic Plan: general Airway type: ETT The patient is not a current smoker. NPO Status: adequate Monitoring plan: standard ASA. Postoperative analgesic plan: parenteral or oral opioids. Informed Consent Anesthetic risks, benefits, alternatives, personnel and consent discussed: no. Patient / Responsible Constitution Party agrees to proceed: no Patient / Surrogate agrees to blood products: blood products not planned Significant changes in the patient condition since the History and Physical, not otherwise documented in primary service progress note: no. Potential Anesthesia issues that may suggest increased risk of complications or contraindication to planned procedure: none. Vitals Value Taken Time BP 162/69 08/12/21 1430 Pulse 66 08/12/21 1430 Resp 18 08/12/21 1430 Temp 36.4 ?C (97.5 ?F) 08/12/21 1430 SpO2 95 % 08/12/21 1430 Facility-Administered Medications as of 08/12/2021 Medication Dose Route Frequency - [MAR Hold due to Transfer] pantoprazole 40 mg injection (PROTONIX) 40 mg INTRAVENOUS DAILY (6 AM) - [COMPLETED] morphine 2 mg injection 2 mg INTRAVENOUS ONCE - [MAR Hold due to Transfer] atorvastatin 80 mg tab(s) (LIPITOR) 80 mg ORAL DAILY - [MAR Hold due to Transfer] metoprolol succinate ER 50 mg tab(s) (TOPROL XL) 50 mg ORAL BID - [MAR Hold due to Transfer] amLODIPine 5 mg tab(s) (NORVASC) 5 mg ORAL DAILY - [MAR Hold due to Transfer] sodium chloride 0.9 % (flush) 3-5 mL (BD POSIFLUSH) 3-5 mL INTRAVENOUS q 12 H - [MAR Hold due to Transfer] NaCl 0.9% iv flush bag 20 mL INTRAVENOUS PRN - [MAR Hold due to Transfer] lactated ringers iv infusion 75 mL/hr INTRAVENOUS CONTINUOUS - [MAR Hold due to Transfer] ondansetron 4 mg tab(s) (ZOFRAN) 4 mg ORAL q 6 H PRN Or - [MAR Hold due to Transfer] ondansetron (PF) 4 mg injection (ZOFRAN) 4 mg INTRAVENOUS q 6 H PRN - [MAR Hold due to Transfer] acetaminophen 1,000 mg tab(s) (TYLENOL) 1,000 mg ORAL q 6 H - [MAR Hold due to Transfer] oxyCODONE IR 5-10 mg tab(s) (ROXICODONE) 5-10 mg ORAL q 4 H PRN - [MAR Hold due to Transfer] piperacillin-tazobactam 3.375 g in D5W 50 mL Vial-Bag (ZOSYN) 3.375 g INTRAVENOUS q 6 H Outpatient Medications as of 08/12/2021 Medication Sig - omeprazole (PRILOSEC) 40 mg capsule Take 1 capsule by mouth once daily. (Patient taking differently: Take 10 mg by mouth once daily. ) - amLODIPine (NORVASC) 5 mg tablet Take 5 mg by mouth once daily. - metoprolol succinate XL, long acting, 50 mg ORAL 24 hr tablet Take 50 mg by mouth twice daily. - atorvastatin calcium(LIPITOR 80 MG TAB) one tablet daily - aspirin(ECOTRIN LOW STRENGTH 81 MG TAB) Take one (1) tablet daily. - sucralfate (CARAFATE) 1 gram tablet Take 1 tablet by mouth before meals and at bedtime. - azelastine (ASTELIN) 0.1% nasal spray twice daily as needed. - DOCOSAHEXANOIC ACID/EPA (FISH OIL ORAL) Take by mouth. - COMPOUNDED PRESCRIPTION Use 1 Drop in both eyes once daily as needed. hydroxpropyl methylcellulose - pyridoxine hcl(VITAMIN B-6 100 MG TAB) Take one(1) tablet daily.=dosage is 50 mg. I have interviewed and examined the patient. I have reviewed the medical record and/or the pre-anesthesia evaluation, pertinent labs, and test results. This contains updated information obtained within 48 hours of Surgery/Procedure. SIGNATURE: Nani Elaine MD PATIENT NAME: Sharron Torres DATE: August 12, 2021 TIME: 4:00 PM CSN: [id number] Normal [facility] Basic metabolic 2000 panelon 08-12-2021 Anion gap [Moles/Vol] 10 mmol/L Normal 9-18 [facility] Comment on above: Order Comment: Speci men Type: BLOOD SPECIMEN Ordering Facility: [facility] Address: [address] [place] [address] Performed By: #### 1 988-5, 308-1 #### [facility] CLIA [id number] [address] [place] [address] [place] Calcium [Mass/Vol] 8.8 mg/dL Normal 8.5-10.2 [facility] Comment on above: Order Comment: Speci men Type: BLOOD SPECIMEN Ordering Facility: [facility] Address: [address] [address] Performed By: #### 1 988-5, 3083-1 #### [facility] CLIA [id number] [address] [place] Chloride [Moles/Vol] 105 mmol/L Normal 97-105 [facility] Comment on above: Order Comment: Speci men Type: BLOOD SPECIMEN Ordering Facility: [facility] Address: [address] [address] Performed By: #### 1 988-5, 308-1 #### [facility] CLIA [id number] 1 [place] [address] [place] CO2 [Moles/Vol] 24 mmol/L Normal 22-30 [facility] Comment on above: Order Comment: Speci men Type: BLOOD SPECIMEN Ordering Facility: [facility] Address: [address] [address] Performed By: #### 1 988-5, 3083-05 #### [facility] CLIA [id number] [address] [facility] Creatinine [Mass/Vol] 0.75 mg/dL Normal 0.58-0.96 [facility] Comment on above: Order Comment: Rhina peguero Type: BLOOD SPECIMEN Ordering Facility: [facility] Address: [address] [place] [address] Performed By: #### 1 988-5, 3083-05 #### [facility] CLIA [id number] [address] [facility] ESTIMATED GLOMERULAR FILTRATION RATE 84 mL/min/1.73m??? Normal >=60 [facility] Comment on above: Order Comment: Rhina peguero Type: BLOOD SPECIMEN Ordering Facility: [facility] Address: [address] [place] [address] Result Comment: Shani mated Glomerular Filtration Rate (eGFR) is calculated using the 2020 CKD-EPI creatinine equation. This equation utilizes serum creatinine, sex, and age as parameters. The creatinine assay has traceable calibration to isotope dilution-mass spectrometry. Refer to KDIGO guidelines for clinical interpretation. In patients with unstable renal function, e.g. those with acute kidney injury, the eGFR may not accurately reflect actual GFR. Performed By: #### 1 988-5, 3083-05 #### [facility] CLIA [id number] [address] [place] Glucose [Mass/Vol] 106 mg/dL High 74-99 [facility] Comment on above: Order Comment: Rhina peguero Type: BLOOD SPECIMEN Ordering Facility: [facility] Address: [address] [place] [address] Result Comment: The [place] Diabetes Association (ADA) provides guidance for cutoff values for fasting glucose and random glucose. The ADA defines fasting as no caloric intake for at least 8 hours. Fasting plasma glucose results between 100 to 125 mg/dL indicate increased risk for diabetes (prediabetes). Fasting plasma glucose results greater than or equal to 126 mg/dL meet the criteria for diagnosis of diabetes. In the absence of unequivocal hyperglycemia, results should be confirmed by repeat testing. In a patient with classic symptoms of hyperglycemia or hyperglycemic crisis, random plasma glucose results greater than or equal to 200 mg/dL meet the criteria for diagnosis of diabetes. Reference: Standards of Medical Care in Diabetes 2016, [place] Diabetes Association. Diabetes Care. 2016.39(Suppl 1). Performed By: #### 1 988-5, 3084-1 #### [facility] CLIA [id number] [address] [place] Potassium [Moles/Vol] 3.7 mmol/L Normal 3.7-5.1 [facility] Comment on above: Order Comment: Speci men Type: BLOOD SPECIMEN Ordering Facility: [facility] Address: [address] [address] Performed By: #### 1 988-5, 3083-1 #### [facility] CLIA [id number] [address] STATES [facility] Sodium [Moles/Vol] 139 mmol/L Normal 136-144 [facility] Comment on above: Order Comment: Brittaniei marielena Type: BLOOD SPECIMEN Ordering Facility: [facility] Address: [address] [address] Performed By: #### 1 988-5, 3083-1 #### [facility] CLIA [id number] [address] STATES [facility] Urea nitrogen [Mass/Vol] 6 mg/dL Low 7-21 [facility] Comment on above: Order Comment: Brittaniei men Type: BLOOD SPECIMEN Ordering Facility: [facility] Address: [address] [address] Performed By: #### 1 988-5, 308-1 #### [facility] CLIA [id number] [address] CBC panel Auto (Bld)on 08-12 Erythrocyte distribution width (RBC) [Ratio] 16.2 % High 11.5-15.0 [facility] Comment on above: Order Comment: Speci men Type: BLOOD SPECIMEN Ordering Facility: [facility] Address: [address] [address] Performed By: #### 1 988-5, 308-1 #### [facility] CLIA [id number] [address] Hematocrit (Bld) [Volume fraction] 40.2 % Normal 36.0-46.0 [facility] Comment on above: Order Comment: Speci men Type: BLOOD SPECIMEN Ordering Facility: [facility] Address: [address] [place] [address] Performed By: #### 1 988-, 3083- #### [facility] CLIA [id number] [address] [facility] Hemoglobin (Bld) [Mass/Vol] 12.5 g/dL Normal 11.5-15.5 [facility] Comment on above: Order Comment: Speci men Type: BLOOD SPECIMEN Ordering Facility: [facility] Address: [address] [place] [address] Performed By: #### 1 988, 3083-1 #### [facility] CLIA [id number] [address] [place] [address] MCH (RBC) [Entitic mass] 26.2 pg Normal 26.0-34.0 [facility] Comment on above: Order Comment: Speci men Type: BLOOD SPECIMEN Ordering Facility: [facility] Address: [address] [address] Performed By: #### 1 988, 3083-1 #### [facility] CLIA [id number] [address] [place] [facility] MCHC (RBC) [Mass/Vol] 31.1 g/dL Normal 30.5-36.0 [facility] Comment on above: Order Comment: Speci men Type: BLOOD SPECIMEN Ordering Facility: [facility] Address: [address] [place] [address] Performed By: #### 1 988-, 308-1 #### [facility] CLIA [id number] [address] MCV (RBC) [Entitic vol] 84.3 fL Normal 80.0-100.0 [facility] Comment on above: Order Comment: Speci men Type: BLOOD SPECIMEN Ordering Facility: [facility] Address: [address] [place] [address] Performed By: #### 1 988-5, 3084-1 #### [facility] CLIA [id number] [address] Nucleated RBC (Bld) [#/Vol] 10*3/uL Normal <0.01 [facility] Comment on above: Order Comment: Speci men Type: BLOOD SPECIMEN Ordering Facility: [facility] Address: [address] [place] [address] Performed By: #### 1 988-5, 3084-1 #### [facility] CLIA [id number] [address] Platelet mean volume (Bld) [Entitic vol] 9.4 fL Normal 9.0-12.7 [facility] Comment on above: Order Comment: Speci men Type: BLOOD SPECIMEN Ordering Facility: [facility] Address: [address] [place] [address] Performed By: #### 1 988-5, 3084-1 #### [facility] CLIA [id number] [address] Platelets (Bld) [#/Vol] 235 10*3/uL Normal 150-400 [facility] Comment on above: Order Comment: Speci men Type: BLOOD SPECIMEN Ordering Facility: [facility] Address: [address] [place] [address] Performed By: #### 1 988-5, 3084-1 #### [facility] [facility]ATORY CLIA [id number] [address] [place] RBC (Bld) [#/Vol] 4.77 10*6/uL Normal 3.90-5.20 [facility] Comment on above: Order Comment: Speci men Type: BLOOD SPECIMEN Ordering Facility: [facility] Address: [address] [place] [address] Performed By: #### 1 988-5, 308-1 #### [facility] CLIA [id number] [address] [place] WBC (Bld) [#/Vol] 8.86 10*3/uL Normal 3.70-11.00 [facility] Comment on above: Order Comment: Speci men Type: BLOOD SPECIMEN Ordering Facility: [facility] Address: [address] [place] [address] Performed By: #### 1 988-5, 308-1 #### [facility] CLIA [id number] [address] [place] HEPATIC FUNCTION PNLon 08-12 Albumin [Mass/Vol] 3.1 g/dL Low 3.9-4.9 [facility] Comment on above: Order Comment: Speci men Type: BLOOD SPECIMEN Ordering Facility: [facility] Address: [address] [place] [address] Performed By: #### 1 988-5, 308-1 #### [facility] CLIA [id number] [address] [place] ALP [Catalytic activity/Vol] 279 U/L High 34-123 [facility] Comment on above: Order Comment: Speci men Type: BLOOD SPECIMEN Ordering Facility: [facility] Address: [address] [address] Performed By: #### 1 988-5, 308-1 #### [facility] CLIA [id number] [address] [place] ALT With P-5'-P [Catalytic activity/Vol] 79 U/L High 7-38 [facility] Comment on above: Order Comment: Speci men Type: BLOOD SPECIMEN Ordering Facility: [facility] Address: [address] [place] [address] Performed By: #### 1 988-5, 3083-1 #### [facility] CLIA [id number] [address] AST With P-5'-P [Catalytic activity/Vol] 49 U/L High 13-35 [facility] Comment on above: Order Comment: Speci men Type: BLOOD SPECIMEN Ordering Facility: [facility] Address: [address] [place] [address] Performed By: #### 1 988-, 3083-1 #### [facility] CLIA [id number] [address] [place] Bilirubin [Mass/Vol] 1.9 mg/dL High 0.2-1.3 [facility] Comment on above: Order Comment: Speci men Type: BLOOD SPECIMEN Ordering Facility: [facility] Address: [address] [place] [address] Performed By: #### 1 988, 3083-05 #### [facility] CLIA [id number] [address] Bilirubin.conjuga kat [Mass/Vol] 1.4 mg/dL High <0.2 [facility] Comment on above: Order Comment: Speci men Type: BLOOD SPECIMEN Ordering Facility: [facility] Address: [address] [place] [address] Performed By: #### 1 988, 3083-05 #### [facility] CLIA [id number] [address] STATES OF [facility] Protein [Mass/Vol] 6.3 g/dL Normal 6.3-8.0 [facility] Comment on above: Order Comment: Speci men Type: BLOOD SPECIMEN Ordering Facility: [facility] Address: [address] [place] [address] Performed By: #### 1 988-, 3083-1 #### [facility] CLIA [id number] [address] NURSING PROGon 08-12-2021 NURSING PROG HNO ID: [id number] Author: Vita Culver RN Service: Nursing Author Type: Registered Nurse Type: Nursing Progress Note Filed: 08/12/2021 5:11 AM Note Text: Nursing Progress Note Patient Name: Sharron Torres Patient Location: [id number] Unable to collect AM blood draw x2 attempts with vein light. Notified Dr. Hernandez who said it is okay to wait until day shift comes in to attempt an ultrasound guided blood draw. Will continue to monitor. This note was completed by: Vita Tenorio [facility] OPERATIVE NOon 08-12-2021 OPERATIVE NO HNO ID: [id number] Author: Jadiel Graff MD Service: Gastroenterology Author Type: Physician Type: Operative Report Filed: 08/12/2021 6:05 PM Note Text: OPERATIVE/PROCEDURE REPORT LOG ID: [id number] Surgery/Procedure Date: Incision/Procedure Start Time: 5:25 PM Incision Close/Procedure End Time: 5:55 PM Surgeon(s)/Proceduralist(s) and Breeding Technician(s): * No surgeons found in log * No Additional Staff Procedure(s): Endoscopic Retrograde Cholangiopancreatography (ERCP) with sphincterotomy and balloon sweep Anesthesia: * No anesthesia type entered * Brief History: 75/F admitted with c/o- abdominal pain with jaundice with CT-evidence of dilated CBD. Procedure Details: The patient was placed in the prone position on the fluoroscopy table. A bite block was placed and medications administered as above. The Olympus side-viewing duodenoscope was introduced into the oropharynx and we intubated the esophagus with ease. We proceeded down to the duodenal bulb which showed a stricture at the junction with second part, likely secondary to healed ulcer. Duodenoscope passed with some difficulty across the stricture. On careful examination, ampulla was noted at the level of the stricture. Ampulla appeared normal. Using Jagtome loaded with 0.025 inch guidewire, we were able to obtain access to the common bile duct (CBD). Contrast injection confirmed placement fluoroscopically. I personally interpreted all fluoroscopy images. Cholangiogram revealed- abnormal, dilated CBD with smooth tapering at the level of ampulla. A sphincterotomy was performed and no immediate complications were noted. We then used a 9/12mm extraction balloon to sweep the CBD. Minimal bleeding occurred which was controlled by balloon tamponade. Balloon catheter,inflated to 12 mm could pass easily across the CBD. Therefore, bile duct stenting was not performed. Occlusion cholangiogram was clear at the end of the case. The scope was then withdrawn and the patient tolerated the procedure well. Pre-Op/Pre-Procedure Diagnosis: Abdominal pain with jaundice Post-Op/Post-Procedure Diagnosis: 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, 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 Ampulla at the level of the stricture S/P sphincterotomy and balloon sweep Specimens: See above EBL: None Complications: None Recommendations:1. NPO for next 4 hours, if no symptoms, then start on clears 2. Lactated Ringer's @ 250 ml/ hour x 8 hours 3. If the patient experiences abdominal pain with or without nausea and vomiting, please check lipase and inform the endoscopist as they may be at risk for post-ERCP pancreatitis or perforation. 4 Monitor for GI bleeding, fever, chills 5. Follow on LFT's in AM If the patient experiences abdominal pain with or without nausea and vomiting, please check lipase and inform the endoscopist as they may be at risk for post-ERCP pancreatitis or perforation. Monitor for GI bleeding, fever, chills No qualified resident/fellow was available. Jadiel Graff MD SIGNATURE: Jadiel Graff MD PATIENT NAME: Sharron Torres DATE: August 12, 2021 TIME: 5:56 PM PAGER/CONTACT #: [phone] Normal [facility] SARS-CoV-2 RNA Resp Ql DEAN+p angeli 08-12-2021 SARS-CoV-2 (COVID-19) RNA DEAN+probe Ql (Resp) COVID 19 RESULT: SARS-CoV-2 (Agent of COVID-19) Not Detected by RT-PCR or equivalent method. This test has been authorized by FDA under an Emergency Use Authorization (EUA). Normal [facility] Comment on above: Performed By: #### 9 4500-6 ####[facility] [id number] [address] [place] XR ERCP READ ONLYon 08-13-19 XR ERCP READ ONLY * * *Final Report* * * DATE OF EXAM: Aug 12 2021 6:08PM AKO [id number] - XR ERCP READ ONLY / PROCEDURE REASON: E.R.C.P. * * * * Physician Interpretation * * * * EXAMINATION: XR ERCP READ ONLY CLINICAL HISTORY: Biliary ductal dilation TECHNIQUE: 6 views of the right upper quadrant COMPARISON: CT of the abdomen and pelvis 08/08/2021 and priors RESULT: as impression IMPRESSION: Si fluoroscopic images were obtained during endoscopic procedure. The endoscope projects over the right upper quadrant, with cannulation of the CBD. Cholangiogram demonstrates minimal ectasia of the CBD and central biliary ducts, no filling defects or stricture. Biliary ducts Images were immediately available for the physician performing the procedure for surgical decision. Please refer to procedure report for further detail. Fluoroscopic Radiation Summary: Plane A, Air Kerma: 14.1 mGy Dose Area Product (DAP): Fluoro time: 0:51 min:sec Narrative Writer: PSCB Transcribe Date/Time: Aug 14 2021 2:02P Dictated by : KENNA FISHMAN MD This examination was interpreted and the report reviewed and electronically signed by: KENNA FISHMAN MD on Aug 14 2021 2:04PM EST [id number] Normal [facility] Basic metabolic 2000 panelon 08-11-2021 Anion gap [Moles/Vol] 9 mmol/L Normal 9-18 [facility] Comment on above: Order Comment: Speci men Type: BLOOD SPECIMEN Ordering Facility: [facility] Address: [address] [place] [id number] Performed By: #### 1 988-5, 3084-1 #### [facility] CLIA [id number] [address] OF [facility] Calcium [Mass/Vol] 8.2 mg/dL Low 8.5-10.2 [facility] Comment on above: Order Comment: Speci men Type: BLOOD SPECIMEN Ordering Facility: [facility] Address: [address] [address] Performed By: #### 1 988-5, 308-1 #### [facility] CLIA [id number] [address] [facility] Chloride [Moles/Vol] 107 mmol/L High 97-105 [facility] Comment on above: Order Comment: Speci men Type: BLOOD SPECIMEN Ordering Facility: [facility] Address: [address] [address] Performed By: #### 1 988-5, 308-1 #### [facility] CLIA [id number] [address] [place] CO2 [Moles/Vol] 23 mmol/L Normal 22-30 [facility] Comment on above: Order Comment: Speci men Type: BLOOD SPECIMEN Ordering Facility: [facility] Address: [address] [place] [address] Performed By: #### 1 988-5, 308-1 #### [facility] CLIA [id number] [address] [place] Creatinine [Mass/Vol] 0.82 mg/dL Normal 0.58-0.96 [facility] Comment on above: Order Comment: Speci men Type: BLOOD SPECIMEN Ordering Facility: [facility] Address: [address] [place] [address] Performed By: #### 1 988-5, 308-1 #### [facility] CLIA [id number] [address] OF [facility] ESTIMATED GLOMERULAR FILTRATION RATE 76 mL/min/1.73m??? Normal >=60 [facility] Comment on above: Order Comment: Speci men Type: BLOOD SPECIMEN Ordering Facility: [facility] Address: [address] [place] [address] Result Comment: Shani mated Glomerular Filtration Rate (eGFR) is calculated using the 2020 CKD-EPI creatinine equation. This equation utilizes serum creatinine, sex, and age as parameters. The creatinine assay has traceable calibration to isotope dilution-mass spectrometry. Refer to KDIGO guidelines for clinical interpretation. In patients with unstable renal function, e.g. those with acute kidney injury, the eGFR may not accurately reflect actual GFR. Performed By: #### 1 988-, 3083-05 #### [facility] CLIA [id number] [address] [place] [address] [place] Glucose [Mass/Vol] 112 mg/dL High 74-99 [facility] Comment on above: Order Comment: Brittaniei men Type: BLOOD SPECIMEN Ordering Facility: [facility] Address: [address] [place], [place] [id number] Result Comment: The [place] Diabetes [employer] (ADA) provides guidance for cutoff values for fasting glucose and random glucose. The ADA defines fasting as no caloric intake for at least 8 hours. Fasting plasma glucose results between 100 to 125 mg/dL indicate increased risk for diabetes (prediabetes). Fasting plasma glucose results greater than or equal to 126 mg/dL meet the criteria for diagnosis of diabetes. In the absence of unequivocal hyperglycemia, results should be confirmed by repeat testing. In a patient with classic symptoms of hyperglycemia or hyperglycemic crisis, random plasma glucose results greater than or equal to 200 mg/dL meet the criteria for diagnosis of diabetes. Reference: Standards of Medical Care in Diabetes 2016, [place] [employer] Association. Diabetes Care. 2016.39(Suppl 1). Performed By: #### 1 988, 3083-05 #### [facility] CLIA [id number] 1 [place] [address] [place] Potassium [Moles/Vol] 3.6 mmol/L Low 3.7-5.1 [facility] Comment on above: Order Comment: Rhina peguero Type: BLOOD SPECIMEN Ordering Facility: [facility] Address: [address] [phone] Performed By: #### 1 988-, 3083-05 #### [facility] CLIA [id number] 1 [place] [address] [place] Sodium [Moles/Vol] 139 mmol/L Normal 136-144 [facility] Comment on above: Order Comment: Speci men Type: BLOOD SPECIMEN Ordering Facility: [facility] Address: [address] [address] Performed By: #### 1 988-5, 3083-1 #### [facility] CLIA [id number] [address] Urea nitrogen [Mass/Vol] 8 mg/dL Normal 7-21 [facility] Comment on above: Order Comment: Speci men Type: BLOOD SPECIMEN Ordering Facility: [facility] Address: [address] [place] [address] Performed By: #### 1 988-5, 3083-1 #### [facility] CLIA [id number] [address] OF [facility] CBC panel Auto (Bld)on 08-11 Erythrocyte distribution width (RBC) [Ratio] 16.1 % High 11.5-15.0 [facility] Comment on above: Order Comment: Speci men Type: BLOOD SPECIMEN Ordering Facility: [facility] Address: [address] [address] Performed By: #### 1 988-5, 3083-05 #### [facility] CLIA [id number] [address] STATES [facility] Hematocrit (Bld) [Volume fraction] 37.6 % Normal 36.0-46.0 [facility] Comment on above: Order Comment: Speci men Type: BLOOD SPECIMEN Ordering Facility: [facility] Address: [address] [address] Performed By: #### 1 988-5, 3083-1 #### [facility] CLIA [id number] [address] [place] [facility] Hemoglobin (Bld) [Mass/Vol] 11.2 g/dL Low 11.5-15.5 [facility] Comment on above: Order Comment: Speci men Type: BLOOD SPECIMEN Ordering Facility: [facility] Address: [address] [address] Performed By: #### 1 988, 3083-05 #### [facility] CLIA [id number] [address] MCH (RBC) [Entitic mass] 26.2 pg Normal 26.0-34.0 [facility] Comment on above: Order Comment: Speci men Type: BLOOD SPECIMEN Ordering Facility: [facility] Address: [address] [place] [address] Performed By: #### 1 988, 3083-05 #### [facility] CLIA [id number] [address] MCHC (RBC) [Mass/Vol] 29.8 g/dL Low 30.5-36.0 [facility] Comment on above: Order Comment: Speci men Type: BLOOD SPECIMEN Ordering Facility: [facility] Address: [address] [place] [address] Performed By: #### 1 9812-20, 3083-05 #### [facility] CLIA [id number] [address] MCV (RBC) [Entitic vol] 87.9 fL Normal 80.0-100.0 [facility] Comment on above: Order Comment: Speci men Type: BLOOD SPECIMEN Ordering Facility: [facility] Address: [address] [place] [address] Performed By: #### 1 988, 3083-05 #### [facility] CLIA [id number] [address] Nucleated RBC (Bld) [#/Vol] 10*3/uL Normal <0.01 [facility] Comment on above: Order Comment: Speci men Type: BLOOD SPECIMEN Ordering Facility: [facility] Address: [address] [place] [address] Performed By: #### 1 988, 3083-05 #### [facility] CLIA [id number] [address] Platelet mean volume (Bld) [Entitic vol] 9.4 fL Normal 9.0-12.7 [facility] Comment on above: Order Comment: Speci men Type: BLOOD SPECIMEN Ordering Facility: [facility] Address: [address] [place] [address] Performed By: #### 1 988-5, 3084-1 #### [facility] CLIA [id number] [address] Platelets (Bld) [#/Vol] 225 10*3/uL Normal 150-400 [facility] Comment on above: Order Comment: Speci men Type: BLOOD SPECIMEN Ordering Facility: [facility] Address: [address] [place] [address] Performed By: #### 1 988-5, 308-1 #### [facility] CLIA [id number] [address] [place] [facility] RBC (Bld) [#/Vol] 4.28 10*6/uL Normal 3.90-5.20 [facility] Comment on above: Order Comment: Speci men Type: BLOOD SPECIMEN Ordering Facility: [facility] Address: [address] [place] [address] Performed By: #### 1 988-5, 308-1 #### [facility] CLIA [id number] [address] WBC (Bld) [#/Vol] 10.50 10*3/uL Normal 3.70-11.00 [facility] Comment on above: Order Comment: Speci men Type: BLOOD SPECIMEN Ordering Facility: [facility] Address: [address] [place] [address] Performed By: #### 1 988-5, 308-1 #### [facility] CLIA [id number] [address] HEPATIC FUNCTION PNLon 08-11 Albumin [Mass/Vol] 2.9 g/dL Low 3.9-4.9 [facility] Comment on above: Order Comment: Speci men Type: BLOOD SPECIMEN Ordering Facility: [facility] Address: [address] [address] Performed By: #### 1 988-5, 308-1 #### [facility] CLIA [id number] [address] ALP [Catalytic activity/Vol] 219 U/L High 34-123 [facility] Comment on above: Order Comment: Speci men Type: BLOOD SPECIMEN Ordering Facility: [facility] Address: [address] [address] Performed By: #### 1 988-5, 308-1 #### [facility] CLIA [id number] [address] [facility] ALT With P-5'-P [Catalytic activity/Vol] 96 U/L High 7-38 [facility] Comment on above: Order Comment: Speci men Type: BLOOD SPECIMEN Ordering Facility: [facility] Address: [address] [address] Performed By: #### 1 988-, 3083-1 #### [facility] CLIA [id number] [address] AST With P-5'-P [Catalytic activity/Vol] 55 U/L High 13-35 [facility] Comment on above: Order Comment: Speci men Type: BLOOD SPECIMEN Ordering Facility: [facility] Address: [address] [address] Performed By: #### 1 988-5, 3083-1 #### [facility] CLIA [id number] [address] Bilirubin [Mass/Vol] 2.8 mg/dL High 0.2-1.3 [facility] Comment on above: Order Comment: Speci men Type: BLOOD SPECIMEN Ordering Facility: [facility] Address: [address] [address] Performed By: #### 1 988-5, 308-1 #### [facility] CLIA [id number] [address] Bilirubin.conjuga kat [Mass/Vol] 2.2 mg/dL High <0.2 [facility] Comment on above: Order Comment: Speci men Type: BLOOD SPECIMEN Ordering Facility: [facility] Address: [address] [place] [address] Performed By: #### 1 988-5, 3084-1 #### [facility] CLIA [id number] [address] [place] Protein [Mass/Vol] 5.6 g/dL Low 6.3-8.0 [facility] Comment on above: Order Comment: Speci men Type: BLOOD SPECIMEN Ordering Facility: [facility] Address: [address] [place] [address] Performed By: #### 1 988-5, 3084-1 #### [facility] CLIA [id number] [address] [place] Basic metabolic 2000 panelon 08-10-2021 Anion gap [Moles/Vol] 7 mmol/L Low 9-18 [facility] Comment on above: Order Comment: Speci men Type: BLOOD SPECIMEN Ordering Facility: [facility] Address: [address] [place] [address] Performed By: #### 1 988-5, 308-1 #### [facility] CLIA [id number] [address] [place] [facility] Calcium [Mass/Vol] 8.2 mg/dL Low 8.5-10.2 [facility] Comment on above: Order Comment: Speci men Type: BLOOD SPECIMEN Ordering Facility: [facility] Address: [address] [place] [address] Performed By: #### 1 988-5, 308-1 #### [facility] CLIA [id number] [address] Chloride [Moles/Vol] 109 mmol/L High 97-105 [facility] Comment on above: Order Comment: Speci men Type: BLOOD SPECIMEN Ordering Facility: [facility] Address: [address] [address] Performed By: #### 1 988-5, 3083- #### [facility] CLIA [id number] [address] [place] [facility] CO2 [Moles/Vol] 24 mmol/L Normal 22-30 [facility] Comment on above: Order Comment: Speci men Type: BLOOD SPECIMEN Ordering Facility: [facility] Address: [address] [place] [address] Performed By: #### 1 988-, 3083-05 #### [facility] CLIA [id number] [address] [place] Creatinine [Mass/Vol] 0.94 mg/dL Normal 0.58-0.96 [facility] Comment on above: Order Comment: Speci men Type: BLOOD SPECIMEN Ordering Facility: [facility] Address: [address] [place] [address] Performed By: #### 1 988, 3083-05 #### [facility] CLIA [id number] [address] OF [facility] ESTIMATED GLOMERULAR FILTRATION RATE 64 mL/min/1.73m??? Normal >=60 [facility] Comment on above: Order Comment: Speci men Type: BLOOD SPECIMEN Ordering Facility: [facility] Address: [address] [place] [address] Result Comment: Shani mated Glomerular Filtration Rate (eGFR) is calculated using the 2020 CKD-EPI creatinine equation. This equation utilizes serum creatinine, sex, and age as parameters. The creatinine assay has traceable calibration to isotope dilution-mass spectrometry. Refer to KDIGO guidelines for clinical interpretation. In patients with unstable renal function, e.g. those with acute kidney injury, the eGFR may not accurately reflect actual GFR. Performed By: #### 1 988-5, 3083-1 #### [facility] CLIA [id number] [address] [place] Glucose [Mass/Vol] 129 mg/dL High 74-99 [facility] Comment on above: Order Comment: Rhina peguero Type: BLOOD SPECIMEN Ordering Facility: [facility] Address: [address] [place], [place] [id number] Result Comment: The [place] Diabetes Association (ADA) provides guidance for cutoff values for fasting glucose and random glucose. The ADA defines fasting as no caloric intake for at least 8 hours. Fasting plasma glucose results between 100 to 125 mg/dL indicate increased risk for diabetes (prediabetes). Fasting plasma glucose results greater than or equal to 126 mg/dL meet the criteria for diagnosis of diabetes. In the absence of unequivocal hyperglycemia, results should be confirmed by repeat testing. In a patient with classic symptoms of hyperglycemia or hyperglycemic crisis, random plasma glucose results greater than or equal to 200 mg/dL meet the criteria for diagnosis of diabetes. Reference: Standards of Medical Care in Diabetes 2016, [place] [employer]. Diabetes Care. 2016.39(Suppl 1). Performed By: #### 1 988-5, 3084-1 #### [facility] CLIA [id number] [address] [place] [address] [place] Potassium [Moles/Vol] 3.7 mmol/L Normal 3.7-5.1 [facility] Comment on above: Order Comment: Rhina peguero Type: BLOOD SPECIMEN Ordering Facility: [facility] Address: [address] [place], [place] [id number] Performed By: #### 1 988-5, 3083-1 #### [facility] CLIA [id number] [address] [place] [address] [place] Sodium [Moles/Vol] 140 mmol/L Normal 136-144 [facility] Comment on above: Order Comment: Rhina peguero Type: BLOOD SPECIMEN Ordering Facility: [facility] Address: [address] [place], [place] [id number] Performed By: #### 1 988-5, 3083- #### [facility] CLIA [id number] [address] [place] Urea nitrogen [Mass/Vol] 12 mg/dL Normal 7-21 [facility] Comment on above: Order Comment: Rhina peguero Type: BLOOD SPECIMEN Ordering Facility: [facility] Address: [address] [address] Performed By: #### 1 988-5, 3083-1 #### [facility] CLIA [id number] [address] CBC panel Auto (Bld)on 08-10 Erythrocyte distribution width (RBC) [Ratio] 16.4 % High 11.5-15.0 [facility] Comment on above: Order Comment: Speci men Type: BLOOD SPECIMEN Ordering Facility: [facility] Address: [address] [place] [address] Performed By: #### 1 988-, 3083-1 #### [facility] CLIA [id number] [address] Hematocrit (Bld) [Volume fraction] 38.8 % Normal 36.0-46.0 [facility] Comment on above: Order Comment: Speci men Type: BLOOD SPECIMEN Ordering Facility: [facility] Address: [address] [address] Performed By: #### 1 988, 3083- #### [employer] [facility] CLIA [id number] [address] Hemoglobin (Bld) [Mass/Vol] 11.6 g/dL Normal 11.5-15.5 [facility] Comment on above: Order Comment: Speci men Type: BLOOD SPECIMEN Ordering Facility: [facility] Address: [address] [address] Performed By: #### 1 988-, 3083-1 #### [facility] CLIA [id number] [address] STATES [facility] MCH (RBC) [Entitic mass] 26.5 pg Normal 26.0-34.0 [facility] Comment on above: Order Comment: Speci men Type: BLOOD SPECIMEN Ordering Facility: [facility] Address: [address] [address] Performed By: #### 1 988-, 3083-1 #### [facility] CLIA [id number] [address] MCHC (RBC) [Mass/Vol] 29.9 g/dL Low 30.5-36.0 [facility] Comment on above: Order Comment: Speci men Type: BLOOD SPECIMEN Ordering Facility: [facility] Address: [address] [place] [address] Performed By: #### 1 988-5, 3083-1 #### [facility] CLIA [id number] [address] MCV (RBC) [Entitic vol] 88.6 fL Normal 80.0-100.0 [facility] Comment on above: Order Comment: Speci men Type: BLOOD SPECIMEN Ordering Facility: [facility] Address: [address] [place] [address] Performed By: #### 1 988, 3083- #### [facility] CLIA [id number] [address] [place] Nucleated RBC (Bld) [#/Vol] 10*3/uL Normal <0.01 [facility] Comment on above: Order Comment: Speci men Type: BLOOD SPECIMEN Ordering Facility: [facility] Address: [address] [place] [address] Performed By: #### 1 988, 3083- #### [facility] CLIA [id number] [address] STATES [facility] Platelet mean volume (Bld) [Entitic vol] 9.7 fL Normal 9.0-12.7 [facility] Comment on above: Order Comment: Speci men Type: BLOOD SPECIMEN Ordering Facility: [facility] Address: [address] [place] [address] Performed By: #### 1 988-, 3083-1 #### [facility] CLIA [id number] [address] [place] Platelets (Bld) [#/Vol] 208 10*3/uL Normal 150-400 [facility] Comment on above: Order Comment: Speci men Type: BLOOD SPECIMEN Ordering Facility: [facility] Address: [address] [place] [address] Performed By: #### 1 988-5, 308- #### [facility] CLIA [id number] [address] STATES OF [facility] RBC (Bld) [#/Vol] 4.38 10*6/uL Normal 3.90-5.20 [facility] Comment on above: Order Comment: Speci men Type: BLOOD SPECIMEN Ordering Facility: [facility] Address: [address] [place] [address] Performed By: #### 1 988-5, 308- #### [facility] CLIA [id number] [address] [place] WBC (Bld) [#/Vol] 11.96 10*3/uL High 3.70-11.00 [facility] Comment on above: Order Comment: Speci men Type: BLOOD SPECIMEN Ordering Facility: [facility] Address: [address] [place] [address] Performed By: #### 1 988-5, 30808-16 #### [facility] CLIA [id number] [address] [place] [address] OF [facility] CONSULT PROGon 08-10-2021 CONSULT PROG HNO ID: [id number] Author: Izzy Fang APRN.OIL AND GAS FIELD TECHNICIAN Service: Gastroenterology Author Type: Nurse Specialist Type: Consult Progress Note Filed: 08/10/2021 12:56 PM Note Text: GI CONSULT PROGRESS NOTE SERVICE DATE: 08/10/2021 SERVICE TIME: 12:48 PM CONSULTING SERVICE: Gastroenterology Subjective INTERVAL HISTORY: GI following for obstructive jaundice. ERCP not performed on 08/09 due to OR scheduling issues. Patient states pain is controlled with pain medications. Has some continued nausea with no vomiting. No fever or chills. LFTs trending down. Leukocytosis improved MEDICATIONS: Current Facility-Administered Medications Medication Dose Route Frequency - atorvastatin 80 mg tab(s) (LIPITOR) 80 mg ORAL DAILY - metoprolol succinate ER 50 mg tab(s) (TOPROL XL) 50 mg ORAL BID - amLODIPine 5 mg tab(s) (NORVASC) 5 mg ORAL DAILY - sodium chloride 0.9 % (flush) 3-5 mL (BD POSIFLUSH) 3-5 mL INTRAVENOUS q 12 H - NaCl 0.9% iv flush bag 20 mL INTRAVENOUS PRN - lactated ringers iv infusion 125 mL/hr INTRAVENOUS CONTINUOUS - ondansetron 4 mg tab(s) (ZOFRAN) 4 mg ORAL q 6 H PRN Or - ondansetron (PF) 4 mg injection (ZOFRAN) 4 mg INTRAVENOUS q 6 H PRN - acetaminophen 1,000 mg tab(s) (TYLENOL) 1,000 mg ORAL q 6 H - oxyCODONE IR 5-10 mg tab(s) (ROXICODONE) 5-10 mg ORAL q 4 H PRN - piperacillin-tazobactam 3.375 g in D5W 50 mL Vial-Bag (ZOSYN) 3.375 g INTRAVENOUS q 6 H Objective PHYSICAL EXAM: VITALS:BP 86/66 Pulse 85 Temp 37.1 ?C (98.8 ?F) (Temporal) Resp 16 Ht 157.5 cm (5' 2) Wt 81.6 kg (180 lb) SpO2 92% BMI 32.92 kg/m? Physical Exam Vitals and nursing note reviewed. Constitutional: General: She is not in acute distress. Appearance: Normal appearance. She is not toxic-appearing. HENT: Head: Atraumatic. Nose: Nose normal. Mouth/Throat: Mouth: Mucous membranes are moist. Eyes: General: No scleral icterus. Cardiovascular: Rate and Rhythm: Normal rate and regular rhythm. Pulmonary: Effort: Pulmonary effort is normal. Breath sounds: Normal breath sounds. Abdominal: General: Bowel sounds are normal. There is no distension. Palpations: Abdomen is soft. Tenderness: There is abdominal tenderness. There is no guarding. Musculoskeletal: General: Normal range of motion. Cervical back: Normal range of motion and neck supple. Skin: General: Skin is warm and dry. Capillary Refill: Capillary refill takes 2 to 3 seconds. Coloration: Skin is not jaundiced. Neurological: General: No focal deficit present. Mental Status: She is alert and oriented to person, place, and time. Psychiatric: Mood and Affect: Mood normal. Behavior: Behavior normal. Thought Content: Thought content normal. Judgment: Judgment normal. DATA: Diagnostic tests reviewed for today's visit: Most recent labs and imaging results. CBC, Coags, BMP, Mg, Phos Recent Labs 08/10/21 0326 08/09/21 1404 WBC 11.96* 12.24* HB 11.6 12.4 HCT 38.8 40.2 PLT 208 245 INR -- 1.1 APTT -- 26.8 NA 140 143 K 3.7 3.9 CHLOR 109* 109* CO2 24 23 BUN 12 14 CREAT 0.94 0.96 GLUC 129* 126* CA 8.2* 8.6 CSF AND Dilantin Liver Function, Amylase, AND Lipase Recent Labs 08/10/21 0326 08/09/21 1404 TPROT 5.6* 6.3 ALB 2.9* 3.5* ALT 141* 210* AST 91* 152* ALKPHOS 203* 220* TBILI 4.3* 4.6* Cardiac Enzymes ABGs Impression/Recommendations Obstructive jaundice - with abdominal pain, nausea and vomiting. CT showed biliary dilation and serology tests demonstrate elevated liver testing. Concern for cholangitis. S/p cholecystectomy. ERCP at [place] with cannulation of pancreatic duct, inability to locate CBD or ampulla and possible pancreas divisum. No fever or chills in last 24 hours. Leukocytosis improved. - Will defer to primary team for diet - IV Fluids - On Zosyn - Pain/nausea management per primary team - Tentative plan for ERCP on Saturday 08/12. 4 days after last dose of Plavix taken. - IR consult for PTC placed by primary team. - Recommend to hold Plavix for now - Add Protonix 40 mg IV daily for now. - Monitor for signs of worsening cholangitis. ? History of CVA - on Plavix - Last Dose of Plavix taken on 08/08. Currently on hold. Continue to hold for planned ERCP. ? Discussed with Dr. Call who agreed with plan for tentative ERCP on Thursday GI will continue to follow After 4 pm and on weekends, please refer to the on-call list for the GI physician sr technical sales consultant. ? GI attending Dr. Call who can be reached via phone, pager or WIB chat. Some documentation from previous visit was copied and pasted, documentation has been reviewed and edited as necessary for today's visit. SIGNATURE: Izzy Fang APRN.CNS PATIENT NAME: Sharron Torres DATE: August 10, 2021 TIME: 12:48 PM PAGER/CONTACT #: see directory Normal [facility] HEPATIC FUNCTION PNLon 08-10 Albumin [Mass/Vol] 2.9 g/dL Low 3.9-4.9 [facility] Comment on above: Order Comment: Speci men Type: BLOOD SPECIMEN Ordering Facility: [facility] Address: [address] [place] [address] Performed By: #### 1 988-5, 308-1 #### [facility] CLIA [id number] [address] ALP [Catalytic activity/Vol] 203 U/L High 34-123 [facility] Comment on above: Order Comment: Speci men Type: BLOOD SPECIMEN Ordering Facility: [facility] Address: [address] [place] [address] Performed By: #### 1 988-5, 308-1 #### [facility] CLIA [id number] [address] ALT With P-5'-P [Catalytic activity/Vol] 141 U/L High 7-38 [facility] Comment on above: Order Comment: Speci men Type: BLOOD SPECIMEN Ordering Facility: [facility] Address: [address] [address] Performed By: #### 1 988-5, 308-1 #### [facility] CLIA [id number] [address] AST With P-5'-P [Catalytic activity/Vol] 91 U/L High 13-35 [facility] Comment on above: Order Comment: Speci men Type: BLOOD SPECIMEN Ordering Facility: [facility] Address: [address] [place] [address] Performed By: #### 1 988-5, 3084-1 #### [facility] CLIA [id number] [address] [place] Bilirubin [Mass/Vol] 4.3 mg/dL High 0.2-1.3 [facility] Comment on above: Order Comment: Speci men Type: BLOOD SPECIMEN Ordering Facility: [facility] Address: [address] [place] [address] Performed By: #### 1 988-5, 3084-1 #### [facility] CLIA [id number] [address] [place] Bilirubin.conjuga kat [Mass/Vol] 3.6 mg/dL High <0.2 [facility] Comment on above: Order Comment: Speci men Type: BLOOD SPECIMEN Ordering Facility: [facility] Address: [address] [place] [address] Performed By: #### 1 988-5, 3084-1 #### [facility] CLIA [id number] [address] Protein [Mass/Vol] 5.6 g/dL Low 6.3-8.0 [facility] Comment on above: Order Comment: Speci men Type: BLOOD SPECIMEN Ordering Facility: [facility] Address: [address] [place] [address] Performed By: #### 1 988-5, 3084-1 #### [facility] CLIA [id number] [address] [place] Basic metabolic 2000 panelon 08-09-2021 Anion gap [Moles/Vol] 11 mmol/L Normal 9-18 [facility] Comment on above: Order Comment: Speci men Type: BLOOD SPECIMEN Ordering Facility: [facility] Address: [address] [place] [address] Performed By: #### 5 8410-2 #### [facility] CLIA [id number] [address] [place] Calcium [Mass/Vol] 8.6 mg/dL Normal 8.5-10.2 [facility] Comment on above: Order Comment: Speci men Type: BLOOD SPECIMEN Ordering Facility: [facility] Address: [address] [place] [address] Performed By: #### 5 8410-2 #### [facility] CLIA [id number] [address] [place] Chloride [Moles/Vol] 109 mmol/L High 97-105 [facility] Comment on above: Order Comment: Speci men Type: BLOOD SPECIMEN Ordering Facility: [facility] Address: [address] [place] [address] Performed By: #### 5 8410-2 #### [facility] CLIA [id number] [address] [place] CO2 [Moles/Vol] 23 mmol/L Normal 22-30 [facility] Comment on above: Order Comment: Speci men Type: BLOOD SPECIMEN Ordering Facility: [facility] Address: [address] [place] [address] Performed By: #### 5 8410-2 #### [facility] CLIA [id number] [address] [place] Creatinine [Mass/Vol] 0.96 mg/dL Normal 0.58-0.96 [facility] Comment on above: Order Comment: Speci men Type: BLOOD SPECIMEN Ordering Facility: [facility] Address: [address] [place] [address] Performed By: #### 5 8410-2 #### [facility] CLIA [id number] [address] ESTIMATED GLOMERULAR FILTRATION RATE 63 mL/min/1.73m??? Normal >=60 [facility] Comment on above: Order Comment: Speci men Type: BLOOD SPECIMEN Ordering Facility: [facility] Address: [address] [place] [address] Result Comment: Shani mated Glomerular Filtration Rate (eGFR) is calculated using the 2020 CKD-EPI creatinine equation. This equation utilizes serum creatinine, sex, and age as parameters. The creatinine assay has traceable calibration to isotope dilution-mass spectrometry. Refer to KDIGO guidelines for clinical interpretation. In patients with unstable renal function, e.g. those with acute kidney injury, the eGFR may not accurately reflect actual GFR. Performed By: #### 5 8410-2 #### [facility] CLIA [id number] [address] [place] [address] [place] Glucose [Mass/Vol] 126 mg/dL High 74-99 [facility] Comment on above: Order Comment: Rhina peguero Type: BLOOD SPECIMEN Ordering Facility: [facility] Address: [address] [place] [address] Result Comment: The [place] Diabetes Association (ADA) provides guidance for cutoff values for fasting glucose and random glucose. The ADA defines fasting as no caloric intake for at least 8 hours. Fasting plasma glucose results between 100 to 125 mg/dL indicate increased risk for diabetes (prediabetes). Fasting plasma glucose results greater than or equal to 126 mg/dL meet the criteria for diagnosis of diabetes. In the absence of unequivocal hyperglycemia, results should be confirmed by repeat testing. In a patient with classic symptoms of hyperglycemia or hyperglycemic crisis, random plasma glucose results greater than or equal to 200 mg/dL meet the criteria for diagnosis of diabetes. Reference: Standards of Medical Care in Diabetes 2016, [place] [employer] Association. Diabetes Care. 2016.39(Suppl 1). Performed By: #### 5 8410-2 #### [facility] CLIA [id number] [address] [place] [address] [place] Potassium [Moles/Vol] 3.9 mmol/L Normal 3.7-5.1 [facility] Comment on above: Order Comment: Rhina peguero Type: BLOOD SPECIMEN Ordering Facility: [facility] Address: [address] [address] Performed By: #### 5 8410-2 #### [facility] CLIA [id number] 1 [place] [address] [place] Sodium [Moles/Vol] 143 mmol/L Normal 136-144 [facility] Comment on above: Order Comment: Rhina peguero Type: BLOOD SPECIMEN Ordering Facility: [facility] Address: [address] [address] Performed By: #### 5 8410-2 #### [facility] CLIA [id number] [address] STATES [facility] Urea nitrogen [Mass/Vol] 14 mg/dL Normal 7-21 [facility] Comment on above: Order Comment: Speci men Type: BLOOD SPECIMEN Ordering Facility: [facility] Address: [address] [place] [address] Performed By: #### 5 8410-2 #### [facility] CLIA [id number] [address] CBC panel Auto (Bld)on 08-09 Erythrocyte distribution width (RBC) [Ratio] 16.2 % High 11.5-15.0 [facility] Comment on above: Order Comment: Speci men Type: BLOOD SPECIMEN Ordering Facility: [facility] Address: [address] [place] [address] Performed By: #### 5 8410-2 #### [facility] CLIA [id number] [address] Hematocrit (Bld) [Volume fraction] 40.2 % Normal 36.0-46.0 [facility] Comment on above: Order Comment: Speci men Type: BLOOD SPECIMEN Ordering Facility: [facility] Address: [address] [place] [address] Performed By: #### 5 8410-2 #### [facility] CLIA [id number] [address] Hemoglobin (Bld) [Mass/Vol] 12.4 g/dL Normal 11.5-15.5 [facility] Comment on above: Order Comment: Speci men Type: BLOOD SPECIMEN Ordering Facility: [facility] Address: [address] [place] [address] Performed By: #### 5 8410-2 #### [facility] CLIA [id number] [address] [place] MCH (RBC) [Entitic mass] 26.7 pg Normal 26.0-34.0 [facility] Comment on above: Order Comment: Speci men Type: BLOOD SPECIMEN Ordering Facility: [facility] Address: [address] [place] [address] Performed By: #### 5 8410-2 #### [facility] CLIA [id number] [address] MCHC (RBC) [Mass/Vol] 30.8 g/dL Normal 30.5-36.0 [facility] Comment on above: Order Comment: Speci men Type: BLOOD SPECIMEN Ordering Facility: [facility] Address: [address] [place] [address] Performed By: #### 5 8410-2 #### [facility] CLIA [id number] [address] MCV (RBC) [Entitic vol] 86.6 fL Normal 80.0-100.0 [facility] Comment on above: Order Comment: Speci men Type: BLOOD SPECIMEN Ordering Facility: [facility] Address: [address] [place] [address] Performed By: #### 5 8410-2 #### [facility] CLIA [id number] [address] Nucleated RBC (Bld) [#/Vol] 10*3/uL Normal <0.01 [facility] Comment on above: Order Comment: Speci men Type: BLOOD SPECIMEN Ordering Facility: [facility] Address: [address] [place] [address] Performed By: #### 5 8410-2 #### [facility] CLIA [id number] [address] Platelet mean volume (Bld) [Entitic vol] 9.3 fL Normal 9.0-12.7 [facility] Comment on above: Order Comment: Speci men Type: BLOOD SPECIMEN Ordering Facility: [facility] Address: [address] [place] [address] Performed By: #### 5 8410-2 #### [facility] CLIA [id number] [address] [facility] Platelets (Bld) [#/Vol] 245 10*3/uL Normal 150-400 [facility] Comment on above: Order Comment: Speci men Type: BLOOD SPECIMEN Ordering Facility: [facility] Address: [address] [place] [address] Performed By: #### 5 8410-2 #### [facility] CLIA [id number] [address] [place] RBC (Bld) [#/Vol] 4.64 10*6/uL Normal 3.90-5.20 [facility] Comment on above: Order Comment: Speci men Type: BLOOD SPECIMEN Ordering Facility: [facility] Address: [address] [place] [address] Performed By: #### 5 8410-2 #### [facility] CLIA [id number] [address] WBC (Bld) [#/Vol] 12.24 10*3/uL High 3.70-11.00 [facility] Comment on above: Order Comment: Speci men Type: BLOOD SPECIMEN Ordering Facility: [facility] Address: [address] [place] [address] Performed By: #### 5 8410-2 #### [facility] CLIA [id number] [address] CONSULTon 08-09-2021 CONSULT HNO ID: [id number] Author: Izzy Fang APRN.[employer]IL AND G[employer] FIELD TECHNICIAN Service: Gastroenterology Author Type: Nurse Specialist Type: Consults Filed: 08/09/2021 3:37 PM Note Text: CONSULT NOTE SERVICE DATE: 08/09/2021 SERVICE TIME: 3:25 PM PHYSICIAN CONSULT (AK,AV,EU,FV,HL,TEGAN,MM,SP) Consult performed by: Izzy Fang APRN.OIL AND GAS FIELD TECHNICIAN Consult ordered by: Hans Santiago MD Reason for consult: ERCP PRIMARY CARE PHYSICIAN: Chevy Matthew DO Subjective 75 year old female who was transferred from [place] for obstructive jaundice. She has a past medical history of CVA on Plavix, anemia, gout, and DVTs. She presented to [facility] with epigastric abdominal pain that radiated to the back. The pain was accompanied by nausea and nonbloody emesis. She reports chills with no fever. Serology testing at [place] demonstrated a WBC of 12.2, lactic acid of 2.7, Total bilirubin of 2.2, AST/ALT of 505/291, and lipase of 57. CT abdomen/pelvis showed fatty liver and intrahepatic biliary dilation. She underwent attempted ERCP, however the CBD and ampulla were unable to be visualized and the proceduralist was suspicious of pancreatic divisum and cannulation was actually in the accessory pancreatic duct. She was transferred to [facility] for definitive care. Serology testing revealed that total bilirubin has increased to 4.6. GI was consulted for evaluation of obstructive jaundice. FUNCTIONAL STATUS: Independent PAST MEDICAL HISTORY Diagnosis Date - Anemia 05/2020 - Gout - H/O blood clots 2017 - History of combined right and left heart catheterization 2019 - History of esophagogastroduodenoscopy (EGD) 09/12/2020 - PMH - PAST MEDICAL HISTORY OF elevated cholesterol - PMH - PAST MEDICAL HISTORY OF asthma, as child and teen - PMH - PAST MEDICAL HISTORY OF 05/18/1976 hepatitis - PMH - PAST MEDICAL HISTORY OF 05/18/1976 fractured jaw - PMH - PAST MEDICAL HISTORY OF 05/18/2008 stress test - PMH - PAST MEDICAL HISTORY OF 05/18/2006 back pain - PMH - PAST MEDICAL HISTORY OF 05/18/2008 tendenitis=both forarms. - Postmenopausal bleeding 04/17/2007 Postmenop. bleeding - Unspecified essential hypertension Essential hypertension PAST SURGICAL HISTORY Procedure Laterality Date - CATARACT SURGERY, COMPLEX Right 11/2015 - COLONOSCOPY GEN ANES 2017 - DANDC, DIAG AND/OR THERAPEUTIC 1982 Dilation AND curettage and cauterized a lesion - EGD W/O [facility] SPECIMEN W/BX 09/12/2020 - LASER SURGERY OF EYE 2008 right eye - LIGATE FALLOPIAN TUBE 1975 - PAST SURGICAL HISTORY OF 1997, 2008 heart cath. - PAST SURGICAL HISTORY OF 2004 bilateral bunionectomy - PAST SURGICAL HISTORY OF 2006 colonoscopy - REMOVAL ADENOIDS,PRIMARY,<12 Y/O 1953 Adenoidectomy - REMOVAL GALLBLADDER 2019 - REMOVAL OF TONSILS,<12 Y/O 1951 Tonsillectomy - SKIN BIOPSY HX Basil cell removal 04/2017 FAMILY HISTORY Problem Relation Age of Onset - Heart Mother - Hypertension Mother - Heart Father - Hypertension Father - Heart Sister - Heart Brother Social History Tobacco Use - Smoking status: Never Smoker - Smokeless tobacco: Never Used Substance Use Topics - Alcohol use: No - Drug use: No amLODIPine (NORVASC) 5 mg tablet, Take 5 mg by mouth once daily., Disp: , Rfl: , 08/08/2021 at Unknown time metoprolol succinate XL, long acting, 50 mg ORAL 24 hr tablet, Take 50 mg by mouth twice daily., Disp: , Rfl: , 08/08/2021 at 0900 atorvastatin calcium(LIPITOR 80 MG TAB), one tablet daily, Disp: , Rfl: 0, 08/08/2021 at 2100 omeprazole (PRILOSEC) 40 mg capsule, Take 1 capsule by mouth once daily. (Patient taking differently: Take 10 mg by mouth once daily. ), Disp: 30 capsule, Rfl: 2, 08/07/2021 at 1700 sucralfate (CARAFATE) 1 gram tablet, Take 1 tablet by mouth before meals and at bedtime., Disp: 100 tablet, Rfl: 0 azelastine (ASTELIN) 0.1% nasal spray, twice daily as needed. , Disp: , Rfl: DOCOSAHEXANOIC ACID/EPA (FISH OIL ORAL), Take by mouth., Disp: , Rfl: COMPOUNDED PRESCRIPTION, Use 1 Drop in both eyes once daily as needed. hydroxpropyl methylcellulose , Disp: , Rfl: 0 aspirin(ECOTRIN LOW STRENGTH 81 MG TAB), Take one (1) tablet daily., Disp: , Rfl: 0, 08/07/2021 at 2100 pyridoxine hcl(VITAMIN B-6 100 MG TAB), Take one(1) tablet daily.=dosage is 50 mg., Disp: , Rfl: 0 Current Facility-Administered Medications Medication Dose Route Frequency - atorvastatin 80 mg tab(s) (LIPITOR) 80 mg ORAL DAILY - metoprolol succinate ER 50 mg tab(s) (TOPROL XL) 50 mg ORAL BID - amLODIPine 5 mg tab(s) (NORVASC) 5 mg ORAL DAILY - sodium chloride 0.9 % (flush) 3-5 mL (BD POSIFLUSH) 3-5 mL INTRAVENOUS q 12 H - NaCl 0.9% iv flush bag 20 mL INTRAVENOUS PRN - lactated ringers iv infusion 125 mL/hr INTRAVENOUS CONTINUOUS - ondansetron 4 mg tab(s) (ZOFRAN) 4 mg ORAL q 6 H PRN Or - ondansetron (PF) 4 mg injection (ZOFRAN) 4 mg INTRAVENOUS q 6 H PRN - acetaminophen 1,000 mg tab(s) (TYLENOL) 1,000 mg ORAL q (more content not included)... Normal [facility] ED Provider Noteon ED Provider Note [facility] EMERGENCY DEPT eMERGENCY dEPARTMENT eNCOUnter Pt Name: Sharron Torres Birthdate 1945 Date of evaluation: 08/09/2021 Provider: Keven Stratton MD CHIEF COMPLAINT No chief complaint on file. HISTORY OF PRESENT ILLNESS (Location/Symptom, Timing/Onset, Context/Setting, Quality, Duration, Modifying Factors, Severity) Note limiting factors. HPI Sharron Torres is a 75 y.o. female who presents to the emergency department with epigastric pain. She had a ERCP earlier this evening for an obstructing stone but GI/surgery at [facility] was unable to remove the stone. She supposed to be transferred to [facility] but instead was transferred here to [facility]. Only complaint at this time is some mild nausea but no fevers no significant abdominal pain at this time. She did have an elevation in her LFTs. Nursing Notes were reviewed. REVIEW OF SYSTEMS (2+ for level 4; 10+ for level 5) Review of Systems Constitutional: Negative for fatigue and fever. HENT: Negative for congestion and ear pain. Eyes: Negative for pain and discharge. Respiratory: Negative for cough and shortness of breath. Cardiovascular: Negative for chest pain and palpitations. Gastrointestinal: Positive for abdominal pain. Negative for diarrhea and vomiting. Genitourinary: Negative for dysuria and frequency. Skin: Negative for color change and rash. Neurological: Negative for dizziness and headaches. Psychiatric/Behavioral: Negative for agitation and suicidal ideas. PAST MEDICAL HISTORY Past Medical History: Diagnosis Date ? Allergic rhinitis ? Asthma ? Hepatitis B ? History of deep vein thrombosis Left leg March 2018 ? Hypercholesterolemia ? Hypertension ? Osteoporosis SURGICAL HISTORY Past Surgical History: Procedure Laterality Date ? BUNIONECTOMY 2005 bilateral ? CARDIAC CATHETERIZATION 05/2014 No CAD - Has had 3 ? CARDIAC CATHETERIZATION 2014 ? COLONOSCOPY 07/06/2017 Normal. Repeat 10 years ? EYE SURGERY 2016 Bilateral cataracts ? TONSILLECTOMY AND ADENOIDECTOMY ? UPPER GASTROINTESTINAL ENDOSCOPY 09/12/2020 Duodenal erosion. CURRENT MEDICATIONS Previous Medications ALBUTEROL SULFATE HFA 108 (90 BASE) MCG/ACT INHALER Inhale into the lungs AMLODIPINE (NORVASC) 5 MG TABLET Take 1 tablet by mouth daily ASPIRIN 81 MG TABLET Take 81 mg by mouth daily ATORVASTATIN (LIPITOR) 80 MG TABLET Take 1 tablet by mouth daily AZELASTINE (ASTELIN) 0.1 % NASAL SPRAY 1 SPRAY IN EACH NOSTRIL TWICE DAILY FLUTICASONE (FLONASE) 50 MCG/ACT NASAL SPRAY USE 2 SPRAYS IN EACH NOSTRIL DAILY METOPROLOL TARTRATE (LOPRESSOR) 50 MG TABLET Take 1 tablet by mouth 2 times daily NITROGLYCERIN (NITROSTAT) 0.[address] 1 tablet under the tongue every 5 minutes as needed for Chest pain up to max of 3 total doses. If no relief after 1 dose, call 911. OMEGA-3 FATTY ACIDS (FISH OIL) 1000 MG CAPS Take 3,000 mg by mouth 3 times daily OMEPRAZOLE (PRILOSEC) 20 MG DELAYED RELEASE CAPSULE Take 2 capsules by mouth Daily SUCRALFATE (CARAFATE) 1 GM TABLET Take 1 g by mouth VENTOLIN HFA 108 (90 BASE) MCG/ACT INHALER 2 PUFF INHALATION EVERY 4 HOURS NEEDED FOR SHORTNESS OF BREATH OR WHEEZING ADMINISTER WITH SPACER VITAMIN D (CHOLECALCIFEROL) 25 MCG (1000 UT) TABS TABLET Take 1,000 Units by mouth daily WIXELA INHUB 500-50 MCG/DOSE DISKUS INHALER USE 1 INHALATION DAILY ALLERGIES Bactrim [sulfamethoxazole-trimethopri m]; Sulfamethoxazole; Conjugated estrogens; Estrogens, conjugated; Imdur [isosorbide dinitrate]; Isosorbide; Levaquin [levofloxacin in d5w]; Levofloxacin; Raloxifene; Solifenacin; and Trimethoprim FAMILY HISTORY Family History Problem Relation Age of Onset ? Coronary Art Dis Mother ? High Blood Pressure Mother ? Heart Disease Mother ? Other Mother No MO - sudden ? High Blood Pressure Father ? Heart Disease Father ? Heart Disease Sister MO - CABG ? Coronary Art Dis Brother CABG at age 40 SOCIAL HISTORY Social History Socioeconomic History ? Marital status: Spouse name: None ? Number of children: None ? Years of education: None ? Highest education level: None Occupational History ? None Tobacco Use ? Smoking status: Never Smoker ? Smokeless tobacco: Never Used Vaping Use ? Vaping Use: Never used Substance and Sexual Activity ? Alcohol use: No Alcohol/week: 0.0 standard drinks ? Drug use: No ? Sexual activity: Yes Partners: Male Other Topics Concern ? None Social History Narrative ? None Social Determinants of Health Financial Resource Strain: ? Difficulty of Paying Living Expenses: Not on file Food Insecurity: ? Worried About Running Out of Food in the Last Year: Not on file ? Ran Out of Food in the Last Year: Not on file Transportation Needs: ? Lack of Transportation (Medical): Not on file ? Lack of Transportation (Non-Medical): Not on file Physical Activity: ? Days of Exe (more content not included)... Normal [facility] HEPATIC FUNCTION PNLon 08-09 Albumin [Mass/Vol] 3.5 g/dL Low 3.9-4.9 [facility] Comment on above: Order Comment: Speci men Type: BLOOD SPECIMEN Ordering Facility: [facility] Address: [address] [place] [address] Performed By: #### 5 8410-2 #### [facility] CLIA [id number] [address] ALP [Catalytic activity/Vol] 220 U/L High 34-123 [facility] Comment on above: Order Comment: Speci men Type: BLOOD SPECIMEN Ordering Facility: [facility] Address: [address] [place] [address] Performed By: #### 5 8410-2 #### [facility] CLIA [id number] [address] ALT With P-5'-P [Catalytic activity/Vol] 210 U/L High 7-38 [facility] Comment on above: Order Comment: Speci men Type: BLOOD SPECIMEN Ordering Facility: [facility] Address: [address] [place] [address] Performed By: #### 5 8410-2 #### [facility] CLIA [id number] [address] AST With P-5'-P [Catalytic activity/Vol] 152 U/L High 13-35 [facility] Comment on above: Order Comment: Speci men Type: BLOOD SPECIMEN Ordering Facility: [facility] Address: [address] [place] [address] Performed By: #### 5 8410-2 #### [facility] CLIA [id number] [address] [facility] Bilirubin [Mass/Vol] 4.6 mg/dL High 0.2-1.3 [facility] Comment on above: Order Comment: Speci men Type: BLOOD SPECIMEN Ordering Facility: [facility] Address: [address] [place] [address] Performed By: #### 5 8410-2 #### [facility] CLIA [id number] [address] Bilirubin.conjuga kat [Mass/Vol] 4.0 mg/dL High <0.2 [facility] Comment on above: Order Comment: Speci men Type: BLOOD SPECIMEN Ordering Facility: [facility] Address: [address] [place] [address] Performed By: #### 5 8410-2 #### [facility] CLIA [id number] [address] Protein [Mass/Vol] 6.3 g/dL Normal 6.3-8.0 [facility] Comment on above: Order Comment: Speci men Type: BLOOD SPECIMEN Ordering Facility: [facility] Address: [address] [place] [address] Performed By: #### 5 8410-2 #### [facility] CLIA [id number] [address] HISTORY PHYSICALon HISTORY PHYSICAL HNO ID: [id number] Author: J Luis Hernandez MD Service: General Surgery Author Type: Resident Type: HANDP Filed: 08/09/2021 1:41 PM Note Text: Attestation signed by Hans Santiago MD at 08/12/2021 6:40 PM Attending Note I personally saw and examined the patient. I reviewed the resident's note. I agree with the resident's assessment and plan with the following revisions and/or additions: Admit from [facility] for CBD stone. Will attempt repeat ERCP. Pt seen and examined 08/09/21 Signature: Hans Santiago MD Date: 08/12/2021 Time: 6:39 PM Plan of care discussed with: Provider, RN, Patient. HANDP [facility] SERVICE DATE: 08/09/2021 SERVICE TIME: 11:29 AM REASON FOR CONSULT: choledocholithiasis REQUESTING PHYSICIAN: direct admit Subjective 75 year old female with a relevant medical and surgical hx as below, significant for unprovoked LLE blood clot a number of years ago (managed with 6 mo Eliquis), stroke in July of this year (patients says it is secondary to left sided carotid stenosis), now on aspirin, and 3 cardiac stents in 2014, who presents with choledocholithiasis. She experienced an acute onset of epigastric pain yesterday morning at 2 AM. This radiated into her bilateral flanks. She vomited yesterday. Bowel movements have continued to be a bit loose. She has had diarrhea, nonbloody and nonfatty for a few months. She initially presented to [facility] where labs were significant for WBC of 12.2, lactic acid of 2.7, Tbili of 2.2, AST/ALT of 505/291, and lipase of 57. CT scan showed a dilated common bile duct. She underwent attempted ERCP, however they were suspicious they discovered pancreatic divisum and were in an accessory pancreatic duct. She was referred here for further management. At the bedside she endorses continued pain, although this has been palliated some by the previous medicine. She last took aspirin yesterday morning, however believes she vomited it up. FUNCTIONAL STATUS: Independent PAST MEDICAL HISTORY Diagnosis Date - Anemia 05/2020 - Gout - H/O blood clots 2017 - History of combined right and left heart catheterization 2019 - History of esophagogastroduodenoscopy (EGD) 09/12/[address] - [facility] - PAST MEDICAL HISTORY OF elevated cholesterol - PMH - PAST MEDICAL HISTORY OF asthma, as child and teen - PM - PAST MEDICAL HISTORY OF 05/18/1976 hepatitis - PM - PAST MEDICAL HISTORY OF 05/18/1976 fractured jaw - PMH - PAST MEDICAL HISTORY OF 05/18/2008 stress test - [facility] - PAST MEDICAL HISTORY OF 05/18/2006 back pain - [facility] - PAST MEDICAL HISTORY OF 05/18/2008 tendenitis=both forarms. - Postmenopausal bleeding 04/17/2007 Postmenop. bleeding - Unspecified essential hypertension Essential hypertension PAST SURGICAL HISTORY Procedure Laterality Date - CATARACT SURGERY, COMPLEX Right 11/2015 - COLONOSCOPY GEN ANES 2017 - DANDC, DIAG AND/OR THERAPEUTIC 1982 Dilation AND curettage and cauterized a lesion - EGD W/O [facility] SPECIMEN W/BX 09/12/2020 - LASER SURGERY OF EYE 2008 right eye - LIGATE FALLOPIAN TUBE 1975 - PAST SURGICAL HISTORY OF 1997, 2008 heart cath. - PAST SURGICAL HISTORY OF 2004 bilateral bunionectomy - PAST SURGICAL HISTORY OF 2006 colonoscopy - REMOVAL ADENOIDS,PRIMARY,<12 Y/O 1951 Adenoidectomy - REMOVAL GALLBLADDER 2019 - REMOVAL OF TONSILS,<12 Y/O 1951 Tonsillectomy - SKIN BIOPSY HX Basil cell removal 04/2017 FAMILY HISTORY Problem Relation Age of Onset - Heart Mother - Hypertension Mother - Heart Father - Hypertension Father - Heart Sister - Heart Brother Social History Tobacco Use - Smoking status: Never Smoker - Smokeless tobacco: Never Used Substance Use Topics - Alcohol use: No - Drug use: No omeprazole (PRILOSEC) 40 mg capsule, Take 1 capsule by mouth once daily., Disp: 30 capsule, Rfl: 2 sucralfate (CARAFATE) 1 gram tablet, Take 1 tablet by mouth before meals and at bedtime., Disp: 100 tablet, Rfl: 0 rOPINIRole (REQUIP) 0.5 mg tablet, TAKE 1 TABLET BY MOUTH EVERY DAY IN THE EVENING, Disp: , Rfl: amLODIPine (NORVASC) 5 mg tablet, Take 5 mg by mouth once daily., Disp: , Rfl: azelastine (ASTELIN) 0.1% nasal spray, 2 SPRAY INTRANASAL BID ADMINISTER INTO EACH NOSTRIL, Disp: , Rfl: DOCOSAHEXANOIC ACID/EPA (FISH OIL ORAL), Take by mouth., Disp: , Rfl: metoprolol succinate XL, long acting, 50 mg ORAL 24 hr tablet, Take 50 mg by mouth twice daily., Disp: , Rfl: atorvastatin calcium(LIPITOR 80 MG TAB), one tablet daily, Disp: , Rfl: 0 COMPOUNDED PRESCRIPTION, hydroxpropyl methylcellulose drops one drop in each eye once daily, Disp: , Rfl: 0 aspirin(ECOTRIN LOW STRENGTH 81 MG TAB), Take one (1) tablet daily., Disp: , Rfl: 0 pyridoxine hcl(VITAMIN B-6 100 MG TAB), Take one(1) tablet (more content not included)... Normal [facility] PT panel Coag (PPP)on 2021 INR Coag (PPP) [Relative time] 1.1 {INR} Normal 0.9-1.3 [facility] Comment on above: Order Comment: Speci men Type: BLOOD SPECIMEN Ordering Facility: [facility] Address: [address] [place] [id number] Result Comment: Janet min K Antagonist (VKA) Therapeutic Range: INR 2 to 3 (Target INR of 2.5) Note: For patients treated with VKA drugs, such as warfarin, the [place] [employer] 2012 Guideline recommends a therapeutic INR range of 2 to 3 (target INR of 2.5). This recommendation includes high-risk patients with antiphospholipid syndrome with previous arterial or venous thromboembolism, current-generation mechanical or bioprosthetic aortic heart valve replacement. Note: Patients with mechanical aortic valve replacement and additional risk factors for thromboembolic events (atrial fibrillation, previous thromboembolism, LV dysfunction, hypercoagulable conditions) or an older generation mechanical AVR (i.e., ball in-Cage) or any mechanical MVR should have a INR therapeutic range of 2.5 to 3.5 (target INR of 3). Peg GH, et al. Chest 2012, 141:7S-47S Laron RA, et al. [facility] 2017, 70: 252-289 Performed By: #### 5 8410-2 #### [facility] CLIA [id number] [address] [facility] PT Coag (PPP) [Time] 12.4 s Normal 9.7-13.0 [facility] Comment on above: Order Comment: Speci men Type: BLOOD SPECIMEN Ordering Facility: [facility] Address: [address] [place] [address] Performed By: #### 5 8410-2 #### [facility] CLIA [id number] [address] aPTT PPPon 08-09-2021 aPTT Coag (PPP) [Time] 26.8 s Normal 23.0-32.4 [facility] Comment on above: Order Comment: Speci men Type: BLOOD SPECIMEN Ordering Facility: [facility] Address: [address] [place] [address] Performed By: #### 5 8410-2 #### [facility] CLIA [id number] [address] [facility] ECHOCARDIOGRAM COMPLETE 2D W DOPPLER W COLORon 06-05-2020 TRANSTHORACIC ECHOCA RDIOGRAM PATIENT: Sharron Torres STUDY DATE: 06/05/2020 : 1945 AGE: 74 HT/WT: 160 cm (63 81.7 kg in) (179.6 lb) GENDER: F BP: 143 / 78 LOCATION: [facility] PATIENT Outpatient [facility] STATUS: *ORDERING PHYSICIAN: * Jhon Mcrae MD *READING PHYSICIAN: * Joseph *ACADEMIC INTERN: * Bereket Reyes MD RD, INDICATIONS: Short of breath / Dyspnea. CONCLUSIONS SUMMARY: 1. Left ventricle: Average LV global longitudinal strain is -13. There is mild concentric hypertrophy. Systolic function is normal by visual assessment. The estimated ejection fraction is 60%. There are no regional wall motion abnormalities. Doppler parameters are consistent with abnormal left ventricular relaxation (grade 1 diastolic dysfunction). 2. Right ventricle: Right ventricular systolic pressure is within the normal range. 3. Left atrium: The atrium is normal in size. 4. Mitral valve: There is mild-moderate, 1-2+ regurgitation. 5. Tricuspid valve: There is mild, 1+ regurgitation. 6. Inferior vena cava: The vessel is normal. The IVC collapses by greater than 50% with inspiration. STUDY DATA: Complete transthoracic echocardiogram. Procedure: Image quality was good. M-mode, complete 2D, strain rate, complete spectral Doppler, and color flow Doppler images were acquired and archived for permanent storage and are available for subsequent review. Study status: Routine. Patient status: Outpatient. FINDINGS LEFT VENTRICLE: Average LV global longitudinal strain is -13. This is abnormal. The cavity size is normal. Wall thickness is mildly increased. There is mild concentric hypertrophy. Systolic function is normal by visual assessment. The estimated ejection fraction is 60%. There are no regional wall motion abnormalities. Doppler parameters are consistent with abnormal left ventricular relaxation (grade 1 diastolic dysfunction). E/e' average: 11 RIGHT VENTRICLE: The cavity size is normal. Systolic function is normal. Right ventricular systolic pressure is within the normal range. VENTRICULAR SEPTUM: There is no evidence of a ventricular septal defect. LEFT ATRIUM: The atrium is normal in size. RIGHT ATRIUM: The atrium is normal in size. ATRIAL SEPTUM: Color Doppler shows no shunt. MITRAL VALVE: Mildly calcified, mildly thickened annulus. Doppler: There is mild-moderate, 1-2+ regurgitation. The peak diastolic gradient is 3 mm Hg. AORTIC VALVE: Structurally normal valve. Trileaflet. Doppler: There is no regurgitation. The peak systolic gradient is 7 mm Hg. The peak systolic velocity is 1.3 m/sec. TRICUSPID VALVE: Normal thickness leaflets. Doppler: There is mild, 1+ regurgitation. PULMONIC VALVE: Structurally normal valve. Doppler: There is trivial, less than 1+ regurgitation. AORTA: The aorta is normal. PULMONARY ARTERY: Main pulmonary artery: Normal. PERICARDIUM: Prominent epicardial fat is present. There is no pericardial effusion. SYSTEMIC VEINS: Inferior vena cava: The vessel is normal. The IVC collapses by greater than 50% with inspiration. Measurements Value Reference Ascending aorta ID, A-P, S 3.0 cm Ascending aorta ID/bsa, A-P, S 1.6 cm/m^2 Left ventricle Value Reference GLS, 2D 12.82 % LV ID, ED 4.3 cm 3.8 - 5.2 LV ID, ES 2.7 cm 2.2 - 3.5 LV ID/bsa, ED (L) 2.2 cm/m^2 2.3 - 3.1 LV ID/bsa, ES 1.4 cm/m^2 1.3 - 2.1 LV PW thickness, ED (H) 1.1 cm 0.6 - 0.9 LV PW/LV ID ratio, ED 0.26 LV wall mass (H) 178 g 66 - 150 LV wall mass/bsa (H) 92 g/m^2 44 - 88 Stroke volume/bsa, 1-p A2C 11 ml/m^2 LV end-diastolic volume, 1-p A4C (L) 46 ml 48 - 140 LV end-systolic volume, 1-p A4C 22 ml 12 - 60 LV end-diastolic volume, 2-p 50 ml 46 - 106 LV end-systolic volume, 2-p 25 ml 14 - 42 LV ejection fraction, 2-p 60 % 54 - 74 LV E/e', lateral 9.1 LV E/e', medial 13.6 LV E/e', average 10.9 Ventricular septum Value Reference IVS thickness, ED (H) 1.2 cm 0.6 - 0.9 LVOT Value Reference LVOT ID, A-P 2.0 cm LVOT mean velocity, S 0.6 m/sec LVOT peak gradient, S 4 mm Hg Stroke volume (SV), LVOT DP 60 ml Stroke index (SV/bsa), LVOT DP 31 ml/m^2 Aortic valve Value Reference Aortic annulus diameter, ED 1.5 cm Aortic annulus diameter/bsa, ED 0.8 cm/m^2 Aortic valve peak velocity, S 1.3 m/sec Aortic peak gradient, S 7 mm Hg Left atrium Value Reference LA volume/bsa, ES, 2-p 24 ml/m^2 16 - 34 Mitral valve Value Reference Mitral E-wave peak velocity 0.8 m/sec Mitral A-wave peak velocity 0.9 m/sec Mitral deceleration time 161 ms Mitral peak gradient, D 3 mm Hg Mitral E/A ratio, peak 0.9 Tricuspid valve Value Reference Tricuspid regurg peak velocity 2.6 m/sec <=2.8 Tricuspid peak RV-RA gradient 28 mm Hg Right atrium Value Reference RA area, ES, A4C 17 cm^2 10 - 18 Systemic veins Value Reference Estimated RAP 3 mm Hg Right ventricle Value Reference RV ID, minor axis, ED, A4C base 3.0 cm 2.5 - 4.1 RV ID, minor axis, ED, A4C mid 2.8 cm 1.9 - 3.5 TAPSE, 2D 1.9 cm 1.7 - 3.1 RV pressure, S, DP 31 mm Hg RV s', lateral (L) 5.8 cm/sec 6.0 - 13.4 Pulmonic valve Value Reference Pulmonic peak gradient, S 3 mm Hg Pulmonic regurg gradient, ED 2 mm Hg Legend: (L) and (H) damien values outside specified reference range. Electronically signed by Joseph Reyes MD 06/05/2020 10:24 Prior Signatures: [facility], [facility], [facility] Incoming Cardiology Results From [employer] - 06/05/2020 10:24 AM EST TRANSTHORACIC ECHOCARDIOGRAM PATIENT: Sharron Torres STUDY DATE: 06/05/2020 : 1945 AGE: 74 HT/WT: 160 cm (63 81.7 kg in) (179.6 lb) GENDER: F BP: 143 / 78 LOCATION: [facility] PATIENT Outpatient [facility] STATUS: *ORDERING PHYSICIAN: * Jhon Mcrae MD *READING PHYSICIAN: * Joseph *ACADEMIC INTERN: * Bereket Reyes MD [facility], [facility] INDICATIONS: Short of breath / Dyspnea. CONCLUSIONS SUMMARY: 1. Left ventricle: Average LV global longitudinal strain is -13. There is mild concentric hypertrophy. Systolic function is normal by visual assessment. The estimated ejection fraction is 60%. There are no regional wall motion abnormalities. Doppler parameters are consistent with abnormal left ventricular relaxation (grade 1 diastolic dysfunction). 2. Right ventricle: Right ventricular systolic pressure is within the normal range. 3. Left atrium: The atrium is normal in size. 4. Mitral valve: There is mild-moderate, 1-2+ regurgitation. 5. Tricuspid valve: There is mild, 1+ regurgitation. 6. Inferior vena cava: The vessel is normal. The IVC collapses by greater than 50% with inspiration. STUDY DATA: Complete transthoracic echocardiogram. Procedure: Image quality was good. M-mode, complete 2D, strain rate, complete spectral Doppler, and color flow Doppler images were acquired and archived for permanent storage and are available for subsequent review. Study status: Routine. Patient status: Outpatient. FINDINGS LEFT VENTRICLE: Average LV global longitudinal strain is -13. This is abnormal. The cavity size is normal. Wall thickness is mildly increased. There is mild concentric hypertrophy. Systolic function is normal by visual assessment. The estimated ejection fraction is 60%. There are no regional wall motion abnormalities. Doppler parameters are consistent with abnormal left ventricular relaxation (grade 1 diastolic dysfunction). E/e' average: 11 RIGHT VENTRICLE: The cavity size is normal. Systolic function is normal. Right ventricular systolic pressure is within the normal range. VENTRICULAR SEPTUM: There is no evidence of a ventricular septal defect. LEFT ATRIUM: The atrium is normal in size. RIGHT ATRIUM: The atrium is normal in size. ATRIAL SEPTUM: Color Doppler shows no shunt. MITRAL VALVE: Mildly calcified, mildly thickened annulus. Doppler: There is mild-moderate, 1-2+ regurgitation. The peak diastolic gradient is 3 mm Hg. AORTIC VALVE: Structurally normal valve. Trileaflet. Doppler: There is no regurgitation. The peak systolic gradient is 7 mm Hg. The peak systolic velocity is 1.3 m/sec. TRICUSPID VALVE: Normal thickness leaflets. Doppler: There is mild, 1+ regurgitation. PULMONIC VALVE: Structurally normal valve. Doppler: There is trivial, less than 1+ regurgitation. AORTA: The aorta is normal. PULMONARY ARTERY: Main pulmonary artery: Normal. PERICARDIUM: Prominent epicardial fat is present. There is no pericardial effusion. SYSTEMIC VEINS: Inferior vena cava: The vessel is normal. The IVC collapses by greater than 50% with inspiration. Measurements Value Reference Ascending aorta ID, A-P, S 3.0 cm Ascending aorta ID/bsa, A-P, S 1.6 cm/m^2 Left ventricle Value Reference GLS, 2D 12.82 % LV ID, ED 4.3 cm 3.8 - 5.2 LV ID, ES 2.7 cm 2.2 - 3.5 LV ID/bsa, ED (L) 2.2 cm/m^2 2.3 - 3.1 LV ID/bsa, ES 1.4 cm/m^2 1.3 - 2.1 LV PW thickness, ED (H) 1.1 cm 0.6 - 0.9 LV PW/LV ID ratio, ED 0.26 LV wall mass (H) 178 g 66 - 150 LV wall mass/bsa (H) 92 g/m^2 44 - 88 Stroke volume/bsa, 1-p A2C 11 ml/m^2 LV end-diastolic volume, 1-p A4C (L) 46 ml 48 - 140 LV end-systolic volume, 1-p A4C 22 ml 12 - 60 LV end-diastolic volume, 2-p 50 ml 46 - 106 LV end-systolic volume, 2-p 25 ml 14 - 42 LV ejection fraction, 2-p 60 % 54 - 74 LV E/e', lateral 9.1 LV E/e', medial 13.6 LV E/e', average 10.9 Ventricular septum Value Reference IVS thickness, ED (H) 1.2 cm 0.6 - 0.9 LVOT Value Reference LVOT ID, A-P 2.0 cm LVOT mean velocity, S 0.6 m/sec LVOT peak gradient, S 4 mm Hg Stroke volume (SV), LVOT DP 60 ml Stroke index (SV/bsa), LVOT DP 31 ml/m^2 Aortic valve Value Reference Aortic annulus diameter, ED 1.5 cm Aortic annulus diameter/bsa, ED 0.8 cm/m^2 Aortic valve peak velocity, S 1.3 m/sec Aortic peak gradient, S 7 mm Hg Left atrium Value Reference LA volume/bsa, ES, 2-p 24 ml/m^2 16 - 34 Mitral valve Value Reference Mitral E-wave peak velocity 0.8 m/sec Mitral A-wave peak velocity 0.9 m/sec Mitral deceleration time 161 ms Mitral peak gradient, D 3 mm Hg Mitral E/A ratio, peak 0.9 Tricuspid valve Value Reference Tricuspid regurg peak velocity 2.6 m/sec <=2.8 Tricuspid peak RV-RA gradient 28 mm Hg Right atrium Value Reference RA area, ES, A4C 17 cm^2 10 - 18 Systemic veins Value Reference Estimated RAP 3 mm Hg Right ventricle Value Reference RV ID, minor axis, ED, A4C base 3.0 cm 2.5 - 4.1 RV ID, minor axis, ED, A4C mid 2.8 cm 1.9 - 3.5 TAPSE, 2D 1.9 cm 1.7 - 3.1 RV pressure, S, DP 31 mm Hg RV s', lateral (L) 5.8 cm/sec 6.0 - 13.4 Pulmonic valve Value Reference Pulmonic peak gradient, S 3 mm Hg Pulmonic regurg gradient, ED 2 mm Hg Legend: (L) and (H) damien values outside specified reference range. Electronically signed by Joseph Reyes MD 06/05/2020 10:24 Prior Signatures[facility] [place] [facility] Complete w/wo Contrasto n 06-05-2020 Echo Complete w/wo Contrast Patient Name: SHARRON TORRES Ultrasound ACCESSION EXAM DATE/TIME PROCEDURE ORDERING PROVIDER [id number] 06/05/2020 10:07 EST Echo Complete w/wo JHON MCRAE Reason For Exam (Echo Complete w/wo Contrast) sob Report TRANSTHORACIC ECHOCARDIOGRAM PATIENT: Sharron Torres STUDY DATE: 06/05/2020 : 1945 AGE: 74 HT/WT: 160 cm (63 81.7 kg in) (179.6 lb) GENDER: F BP: 143 / 78 LOCATION: [facility] PATIENT Outpatient [facility] STATUS: *ORDERING PHYSICIAN: * Jhon Mcrae MD *READING PHYSICIAN: * Joseph *ACADEMIC INTERN: * Bereket Reyes MD RD, AE INDICATIONS: Short of breath / Dyspnea. CONCLUSIONS SUMMARY: 1. Left ventricle: Average LV global longitudinal strain is -13. There is mild concentric hypertrophy. Systolic function is normal by visual assessment. The estimated ejection fraction is 60%. There are no regional wall motion abnormalities. Doppler parameters are consistent with abnormal left ventricular relaxation (grade 1 diastolic dysfunction). 2. Right ventricle: Right ventricular systolic pressure is within the normal range. 3. Left atrium: The atrium is normal in size. 4. Mitral valve: There is mild-moderate, 1-2+ regurgitation. 5. Tricuspid valve: There is mild, 1+ regurgitation. 6. Inferior vena cava: The vessel is normal. The IVC collapses by greater than 50% with inspiration. STUDY DATA: Complete transthoracic echocardiogram. Procedure: Image quality was good. M-mode, complete 2D, strain rate, complete spectral Doppler, and color flow Doppler images were acquired and archived for permanent storage and are available for subsequent review. Study status: Routine. Patient status: Outpatient. FINDINGS Ultrasound Report LEFT VENTRICLE: Average LV global longitudinal strain is -13. This is abnormal. The cavity size is normal. Wall thickness is mildly increased. There is mild concentric hypertrophy. Systolic function is normal by visual assessment. The estimated ejection fraction is 60%. There are no regional wall motion abnormalities. Doppler parameters are consistent with abnormal left ventricular relaxation (grade 1 diastolic dysfunction). E/e' average: 11 RIGHT VENTRICLE: The cavity size is normal. Systolic function is normal. Right ventricular systolic pressure is within the normal range. VENTRICULAR SEPTUM: There is no evidence of a ventricular septal defect. LEFT ATRIUM: The atrium is normal in size. RIGHT ATRIUM: The atrium is normal in size. ATRIAL SEPTUM: Color Doppler shows no shunt. MITRAL VALVE: Mildly calcified, mildly thickened annulus. Doppler: There is mild-moderate, 1-2+ regurgitation. The peak diastolic gradient is 3 mm Hg. AORTIC VALVE: Structurally normal valve. Trileaflet. Doppler: There is no regurgitation. The peak systolic gradient is 7 mm Hg. The peak systolic velocity is 1.3 m/sec. TRICUSPID VALVE: Normal thickness leaflets. Doppler: There is mild, 1+ regurgitation. PULMONIC VALVE: Structurally normal valve. Doppler: There is trivial, less than 1+ regurgitation. AORTA: The aorta is normal. PULMONARY ARTERY: Main pulmonary artery: Normal. PERICARDIUM: Prominent epicardial fat is present. There is no pericardial effusion. SYSTEMIC VEINS: Inferior vena cava: The vessel is normal. The IVC collapses by greater than 50% with inspiration. Measurements Value Reference Ascending aorta ID, A-P, S 3.0 cm Ascending aorta ID/bsa, A-P, S 1.6 cm/m^2 Left ventricle Value Reference GLS, 2D 12.82 % LV ID, ED 4.3 cm 3.8 - 5.2 LV ID, ES 2.7 cm 2.2 - 3.5 LV ID/bsa, ED (L) 2.2 cm/m^2 2.3 - 3.1 LV ID/bsa, ES 1.4 cm/m^2 1.3 - 2.1 LV PW thickness, ED (H) 1.1 cm 0.6 - 0.9 LV PW/LV ID ratio, ED 0.26 LV wall mass (H) 178 g 66 - 150 LV wall mass/bsa (H) 92 g/m^2 44 - 88 Stroke volume/bsa, 1-p A2C 11 ml/m^2 LV end-diastolic volume, 1-p A4C (L) 46 ml 48 - 140 LV end-systolic volume, 1-p A4C 22 ml 12 - 60 LV end-diastolic volume, 2-p 50 ml 46 - 106 LV end-systolic volume, 2-p 25 ml 14 - 42 LV ejection fraction, 2-p 60 % 54 - 74 LV E/e', lateral 9.1 LV E/e', medial 13.6 LV E/e', average 10.9 Ventricular septum Value Reference IVS thickness, ED (H) 1.2 cm 0.6 - 0.9 Ultrasound Report LVOT Value Reference LVOT ID, A-P 2.0 cm LVOT mean velocity, S 0.6 m/sec LVOT peak gradient, S 4 mm Hg Stroke volume (SV), LVOT DP 60 ml Stroke index (SV/bsa), LVOT DP 31 ml/m^2 Aortic valve Value Reference Aortic annulus diameter, ED 1.5 cm Aortic annulus diameter/bsa, ED 0.8 cm/m^2 Aortic valve peak velocity, S 1.3 m/sec Aortic peak gradient, S 7 mm Hg Left atrium Value Reference LA volume/bsa, ES, 2-p 24 ml/m^2 16 - 34 Mitral valve Value Reference Mitral E-wave peak velocity 0.8 m/sec Mitral A-wave peak velocity 0.9 m/sec Mitral deceleration time 161 ms Mitral peak gradient, D 3 mm Hg Mitral E/A ratio, peak 0.9 Tricuspid valve Value Reference Tricuspid regurg peak velocity 2.6 m/sec <=2.8 Tricuspid peak RV-RA gradient 28 mm Hg Right atrium Value Reference RA area, ES, A4C 17 cm^2 10 - 18 Systemic veins Value Reference Estimated RAP 3 mm Hg Right ventricle Value Reference RV ID, minor axis, ED, A4C base 3.0 cm 2.5 - 4.1 RV ID, minor axis, ED, A4C mid 2.8 cm 1.9 - 3.5 TAPSE, 2D 1.9 cm 1.7 - 3.1 RV pressure, S, DP 31 mm Hg RV s', lateral (L) 5.8 cm/sec 6.0 - 13.4 Pulmonic valve Value Reference Pulmonic peak gradient, S 3 mm Hg Pulmonic regurg gradient, ED 2 mm Hg Legend: (L) and (H) damien values outside specified reference range. Electronically signed by Joseph Reyes MD 06/05/2020 10:24 Prior Signatures: Final Dictated: 06/05/2020 10:24 am Dictating Physician: JOSEPH REYES Signed Date and Time: 06/05/2020 10:24 am Signed by: JOSEPH REYES Normal [facility] Vital Signs Date Time Vital Sign Value Performing Clinician Facility 03-27-2025 07:29-0500 Diastolic blood pressure 78 mm[Hg] Ramin Whitney DO Work Phone: [facility] 03-27-2025 07:29-0500 Heart rate 68 /min Ramin Whitney DO Work Phone: [facility] 03-27-2025 07:29-0500 Systolic blood pressure 148 mm[Hg] Ramin Whitney DO Work Phone: [facility] 03-27-2025 06:58-0500 Body height 157.5 cm Ramin Whitney DO Work Phone: [facility] 03-27-2025 06:58-0500 Body mass index (BMI) [Ratio] 30.18 kg/m2 Ramin Whitney DO Work Phone: [facility] 03-27-2025 06:58-0500 Body temperature 98.01 [degF] Ramin Whitney DO Work Phone: [facility] 03-27-2025 06:58-0500 Body weight 74.84 kg Ramin Whitney DO Work Phone: [facility] 03-27-2025 06:58-0500 SaO2% (BldA) [Mass fraction] 95 % Ramin Whitney DO Work Phone: [facility] 11-21-2024 10:54-0400 Body height 157.[address] Chevy Matthew DO Work Phone: [facility] 11-21-2024 10:54-0400 Body mass index (BMI) [Ratio] 29.9 kg/m2 Dr. Chevy Matthew DO Work Phone: [facility] 11-21-2024 10:54-0400 Body weight 74.[address] Chevy Matthew DO Work Phone: [facility] 11-21-2024 10:54-0400 Diastolic blood pressure 68 mm[Hg] Dr. Chevy Matthew DO Work Phone: [facility] 11-21-2024 10:54-0400 Heart rate 57 /min Dr. Chevy Matthew DO Work Phone: [facility] 11-21-2024 10:54-0400 Respiratory rate 16 /min Dr. Chevy Matthew DO Work Phone: [facility] 11-21-2024 10:54-0400 Systolic blood pressure 133 mm[Hg] Dr. Chevy Matthew DO Work Phone: [facility] 08-31-2024 14:15-0400 Diastolic blood pressure 70 mm[Hg] [facility] 08-31-2024 14:15-0400 Heart rate 56 /min [facility] 08-31-2024 14:15-0400 Systolic blood pressure 133 mm[Hg] [facility] 08-15-2024 10:42-0400 Diastolic blood pressure 76 mm[Hg] [facility] 08-15-2024 10:42-0400 Systolic blood pressure 164 mm[Hg] [facility] 08-15-2024 10:32-0400 Heart rate 58 /min [facility] 07-25-2024 08:33-0400 Diastolic blood pressure 78 mm[Hg] Ramin Whitney DO Work Phone: [facility] 07-25-2024 08:33-0400 Heart rate 64 /min Ramin Whitney DO Work Phone: [facility] 07-25-2024 08:33-0400 Systolic blood pressure 136 mm[Hg] Ramin Whitney DO Work Phone: [facility] 07-25-2024 07:36-0400 Body height 157.5 cm Ramin Whitney DO Work Phone: [facility] 07-25-2024 07:36-0400 Body mass index (BMI) [Ratio] 31.09 kg/m2 Ramin Whitney DO Work Phone: [facility] 07-25-2024 07:36-0400 Body temperature 98.91 [degF] Ramin Whitney DO Work Phone: [facility] 07-25-2024 07:36-0400 Body weight 77.11 kg Ramin Whitney DO Work Phone: [facility] 07-25-2024 07:36-0400 SaO2% (BldA) [Mass fraction] 95 % Ramin Whitney DO Work Phone: [facility] 02-01-2024 06:49-0400 Body height 157.5 cm Ramin Whitney DO Work Phone: [facility] 02-01-2024 06:49-0400 Body mass index (BMI) [Ratio] 30.91 kg/m2 Ramin Whitney DO Work Phone: [facility] 02-01-2024 06:49-0400 Body temperature 97 [degF] Ramin Whitney DO Work Phone: [facility] 02-01-2024 06:49-0400 Body weight 76.66 kg Ramin Whitney DO Work Phone: [facility] 02-01-2024 06:49-0400 Diastolic blood pressure 60 mm[Hg] Ramin Whitney DO Work Phone: [facility] 02-01-2024 06:49-0400 Heart rate 61 /min Ramin Whitney DO Work Phone: [facility] 02-01-2024 06:49-0400 SaO2% (BldA) [Mass fraction] 97 % Ramin Whitney DO Work Phone: [facility] 02-01-2024 06:49-0400 Systolic blood pressure 128 mm[Hg] Ramin Whitney DO Work Phone: [facility] 08-28-2023 13:04-0400 Diastolic blood pressure 64 mm[Hg] Ramin Whitney DO Work Phone: [facility] 08-28-2023 13:04-0400 Heart rate 68 /min Ramin Whitney DO Work Phone: [facility] 08-28-2023 13:04-0400 Systolic blood pressure 136 mm[Hg] Ramin Whitney DO Work Phone: [facility] 08-28-2023 08:47-0400 Body height 157.5 cm Ramin Whitney DO Work Phone: [facility] 08-28-2023 08:47-0400 Body mass index (BMI) [Ratio] 31.64 kg/m2 Ramin Whitney DO Work Phone: [facility] 08-28-2023 08:47-0400 Body temperature 97 [degF] Ramin Whitney DO Work Phone: [facility] 08-28-2023 08:47-0400 Body weight 78.47 kg Ramin Whitney DO Work Phone: [facility] 08-28-2023 08:47-0400 SaO2% (BldA) [Mass fraction] 95 % Ramin Whitney DO Work Phone: [facility] 05-06-2023 07:09-0500 Body height 157.5 cm Johnathan SWARTZ-C Work Phone: [facility] 05-06-2023 07:09-0500 Body mass index (BMI) [Ratio] 31.83 kg/m2 Johnathan SWARTZ-C Work Phone: [facility] 05-06-2023 07:09-0500 Body temperature 97.3 [degF] Johnathan SWARTZ-C Work Phone: [facility] 05-06-2023 07:09-0500 Body weight 78.93 kg Johnathan Da Silva PA-C Work Phone: [facility] 05-06-2023 07:09-0500 Diastolic blood pressure 58 mm[Hg] Johnathan SWARTZ-C Work Phone: [facility] 05-06-2023 07:09-0500 Heart rate 61 /min Johnathan Da Silva PA-C Work Phone: [facility] 05-06-2023 07:09-0500 SaO2% (BldA) [Mass fraction] 97 % Johnathan Da Silva PA-C Work Phone: [facility] 05-06-2023 07:09-0500 Systolic blood pressure 119 mm[Hg] Johnathan Da Silva PA-C Work Phone: [facility] 12-29-2022 10:06-0400 Body height 157.5 cm Johnathan Da Silva PA-C Work Phone: [facility] 12-29-2022 10:06-0400 Body mass index (BMI) [Ratio] 31.64 kg/m2 Johnathan Da Silva PA-C Work Phone: [facility] 12-29-2022 10:06-0400 Body temperature 97.11 [degF] Johnathan Da Silva PA-C Work Phone: [facility] 12-29-2022 10:06-0400 Body weight 78.47 kg Johnathan Da Silva PA-C Work Phone: [facility] 12-29-2022 10:06-0400 Diastolic blood pressure 65 mm[Hg] Johnathan Da Silva PA-C Work Phone: [facility] 12-29-2022 10:06-0400 Heart rate 58 /min Johnathan Da Silva PA-C Work Phone: [facility] 12-29-2022 10:06-0400 SaO2% (BldA) [Mass fraction] 96 % Johnathan Da Silva PA-C Work Phone: [facility] 12-29-2022 10:06-0400 Systolic blood pressure 118 mm[Hg] Johnathan Da Silva PA-C Work Phone: [facility] 10-23-2022 11:59-0400 Body height 157.[address] Chevy Matthew Work Phone: [facility] 10-23-2022 11:59-0400 Body mass index (BMI) [Ratio] 32.1 kg/m2 Dr. Chevy Matthew Work Phone: [facility] 10-23-2022 11:59-0400 Body temperature 97.8 [degF] Dr. Chevy Matthew Work Phone: [facility] 10-23-2022 11:59-0400 Body weight 79.[address] Chevy Matthew Work Phone: [facility] 10-23-2022 11:59-0400 Diastolic blood pressure 66 mm[Hg] Dr. Chevy Matthew Work Phone: 5(507)[phone] [place] [address] 10-23-2022 11:59-0400 Heart rate 72 /min Dr. Chevy Matthew Work Phone: 5(020)[phone] [place] [address] 10-23-2022 11:59-0400 Respiratory rate 18 /min Dr. Chevy Matthew Work Phone: [facility] 10-23-2022 11:59-0400 SaO2% (BldA) [Mass fraction] 96 % Dr. Chevy Matthew Work Phone: [facility] 10-23-2022 11:59-0400 Systolic blood pressure 136 mm[Hg] Dr. Chevy Matthew Work Phone: [facility] 09-18-2022 10:54-0400 Body mass index (BMI) [Ratio] 32.7 kg/m2 Dr. Chevy Matthew Work Phone: [facility] 09-18-2022 10:54-0400 Body weight 81.[address] Chevy Matthew Work Phone: [facility] 09-18-2022 10:54-0400 Diastolic blood pressure 65 mm[Hg] Dr. Chevy Matthew Work Phone: [facility] 09-18-2022 10:54-0400 Heart rate 62 /min Dr. Chevy Matthew Work Phone: [facility] 09-18-2022 10:54-0400 Respiratory rate 18 /min Dr. Chevy Matthew Work Phone: [facility] 09-18-2022 10:54-0400 Systolic blood pressure 127 mm[Hg] Dr. Chevy Matthew Work Phone: [facility] 06-30-2022 09:58-0500 Body height 157.5 cm Chevy Matthew DO Work Phone: [facility] 06-30-2022 09:58-0500 Body mass index (BMI) [Ratio] 32.19 kg/m2 Chevy Matthew DO Work Phone: [facility] 06-30-2022 09:58-0500 Body temperature 97.5 [degF] Chevy Matthew DO Work Phone: [facility] 06-30-2022 09:58-0500 Body weight 79.83 kg Chevy Matthew DO Work Phone: [facility] 06-30-2022 09:58-0500 Diastolic blood pressure 75 mm[Hg] Chevy Matthew DO Work Phone: [facility] 06-30-2022 09:58-0500 Heart rate 60 /min Chevy Matthew DO Work Phone: [facility] 06-30-2022 09:58-0500 SaO2% (BldA) [Mass fraction] 95 % Chevy Matthew DO Work Phone: [facility] 06-30-2022 09:58-0500 Systolic blood pressure 135 mm[Hg] Chevy Matthew DO Work Phone: [facility] 04-25-2022 12:38-0500 Body height 157.[address] Chevy Matthew Work Phone: [facility] 04-25-2022 12:38-0500 Body mass index (BMI) [Ratio] 31.4 kg/m2 Dr. Chevy Matthew Work Phone: [facility] 04-25-2022 12:38-0500 Body temperature 98.6 [degF] Dr. Chevy Matthew Work Phone: [facility] 04-25-2022 12:38-0500 Body weight 78.[address] Chevy Matthew Work Phone: [facility] 04-25-2022 12:38-0500 Diastolic blood pressure 65 mm[Hg] Dr. Chevy Matthew Work Phone: [facility] 04-25-2022 12:38-0500 Heart rate 64 /min Dr. Chevy Matthew Work Phone: [facility] 04-25-2022 12:38-0500 Respiratory rate 20 /min Dr. Chevy Matthew Work Phone: [facility] 04-25-2022 12:38-0500 SaO2% (BldA) [Mass fraction] 95 % Dr. Chevy Matthew Work Phone: [facility] 04-25-2022 12:38-0500 Systolic blood pressure 116 mm[Hg] Dr. Chevy Matthew Work Phone: [facility] 02-05-2022 09:04-0400 Diastolic blood pressure 54 mm[Hg] Manuel Ponce MD Work Phone: [facility] 02-05-2022 09:04-0400 Heart rate 65 /min Manuel Ponce MD Work Phone: [facility] 02-05-2022 09:04-0400 Respiratory rate 16 /min Manuel Ponce MD Work Phone: [facility] 02-05-2022 09:04-0400 SaO2% (BldA) [Mass fraction] 5 % Manuel Ponce MD Work Phone: [facility] 02-05-2022 09:04-0400 Systolic blood pressure 118 mm[Hg] Manuel Ponce MD Work Phone: [facility] 02-05-2022 08:49-0400 Body temperature 97 [degF] Manuel Ponce MD Work Phone: [facility] 02-05-2022 08:07-0400 Body height 157.5 cm Manuel Ponce MD Work Phone: [facility] 02-05-2022 08:07-0400 Body weight 76.66 kg Manuel Ponce MD Work Phone: [facility] 12-19-2021 08:52-0400 Body height 157.5 cm Belem Tip PA-C Work Phone: [facility] 12-19-2021 08:52-0400 Body weight 76.66 kg Belem Tip PA-C Work Phone: [facility] 12-19-2021 08:52-0400 Diastolic blood pressure 64 mm[Hg] Belem Tip PA-C Work Phone: [facility] 12-19-2021 08:52-0400 Heart rate 66 /min Belem Tip PA-C Work Phone: [facility] 12-19-2021 08:52-0400 Systolic blood pressure 122 mm[Hg] Belem Tip PA-C Work Phone: [facility] 08-09-2021 08:28-0400 Body height 157.5 cm Keven Stratton MD Work Phone: [facility] 08-09-2021 08:28-0400 Body mass index (BMI) [Ratio] 32.92 kg/m2 Keven Stratton MD Work Phone: [facility] 08-09-2021 08:28-0400 Body temperature 98.1 [degF] Keven Stratton MD Work Phone: [facility] 08-09-2021 08:28-0400 Body weight 81.65 kg Keven Stratton MD Work Phone: [facility] 08-09-2021 08:28-0400 Diastolic blood pressure 61 mm[Hg] Kevne Stratton MD Work Phone: [facility] 08-09-2021 08:28-0400 Heart rate 80 /min Keven Stratton MD Work Phone: [facility] 08-09-2021 08:28-0400 Respiratory rate 18 /min Keven Stratton MD Work Phone: [facility] 08-09-2021 08:28-0400 SaO2% (BldA) [Mass fraction] 95 % Keven Stratton MD Work Phone: [facility] 08-09-2021 08:28-0400 Systolic blood pressure 154 mm[Hg] Keven Stratton MD Work Phone: [facility] Encounters Encounter Date Encounter Type Care Provider Facility Start: 03-27-2025 End: 03-27-2025 Assay of hemosiderin, quant Ramin Warren Chelo ORTEGA Work Phone: [facility] Start: 03-27-2025 End: 03-27-2025 Patient encounter procedure Ramin Whitney DO Work Phone: 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 Comment on above: Hypercholesterolemia ; Essential hypertension; Gastroesophageal reflux disease without esophagitis Start: 12-29-2024 Non-patient / Non-visit Bailey clay NP-C -[facility] Work Phone: Start: 12-29-2024 ambulatory Chevy Valeriolin Facility: [facility] Start: 12-29-2024 Non-patient / Non-visit Dr. Josie SOLIS -[facility] Start: 12-29-2024 End: 12-29-[address] Chevy Matthew DO Work Phone: -[facility] Start: 12-29-2024 End: 12-29-2024 Patient encounter procedure Bailey Mcdonald [employer]-C -[facility] Work Phone: Start: 12-29-2024 End: 12-29-[address] [facility] Start: 11-21-2024 End: 11-21-2024 Patient encounter procedure Bailey Mcdonald NP-C -[facility] Work Phone: Start: 11-21-2024 End: 11-21-[address] Chevy Matthew DO Work Phone: -[facility] Start: 10-12-2024 End: 10-12-2024 Refill Ramin Whitney DO Work Phone: [facility] Comment on above: Essential hypertensi on Start: 10-09-2024 End: 10-12-2024 Refill Ramin Kelvin Chelo DO Work Phone: [facility] Start: 08-31-2024 End: 08-31-2024 Patient encounter status [facility] Schedule [facility] Start: 08-31-2024 End: 08-31-2024 Clinical Support [facility] Comment on above: Blood pressure check Start: 08-17-2024 End: 08-17-2024 Orders Only Ramin Whitney DO Work Phone: [facility] Start: 08-15-2024 End: 08-15-2024 Clinical Support [facility] Schedule [facility] Comment on above: Essential hypertensi on Start: 08-01-2024 End: 08-01-2024 Orders Only Ramin Whitney DO [facility] Start: 07-25-2024 End: 07-25-2024 Office outpatient visit 40 minutes Ramin Whitney DO Work Phone: [facility] Comment on above: Edema, unspecified t ype (Primary Dx); Essential hypertension; Hypercholesterolemia; Lumbar degenerative disc disease; Gastroesophageal reflux disease without esophagitis; NSAID long-term use; Puncture wound; History of CVA (cerebrovascular accident); Depression, unspecified depression type; First degree atrioventricular block Start: 07-25-2024 End: 07-25-2024 Orders Only Ramin Whitney Work [facility]: [facility] Start: 02-09-2024 End: 02-09-2024 Orders Only Ramin Whitney Work Phone: [facility] Comment on above: Lumbar degenerative disc disease (Primary Dx) Start: 02-01-2024 End: 02-01-2024 Assay of hemosiderin, quant Ramin Whitney DO Work Phone: [facility] Start: 02-01-2024 End: 02-01-2024 Patient encounter procedure Ramin Whitney DO Work Phone: [facility] Comment on above: Encounter for subs uent annual wellness visit (AWV) in Medicare patient (Primary Dx); Essential hypertension; Hypercholesterolemia; Gastroesophageal reflux disease without esophagitis; Lumbar degenerative disc disease; Primary hypertension; Mild intermittent asthma without complication; Seasonal allergic rhinitis due to pollen; Routine general medical examination at health care facility Start: 11-03-2023 End: 11-04-2023 Refill Ramin Whitney DO Work Phone: [facility] Comment on above: Lumbar degenerative disc disease Start: 08-28-2023 End: 08-28-2023 Office outpatient visit 25 minutes Ramin Warren Kerrynaomi Work Phone: [facility] Comment on above: Essential hypertensi on (Primary Dx); Hypercholesterolemia; Mild intermittent asthma without complication; Gastroesophageal reflux disease without esophagitis; Lumbar degenerative disc disease Start: 05-06-2023 End: 05-06-2023 Office outpatient visit 25 minutes Johnathan Da Silva PA-C Work Phone: [facility] Comment on above: Mild intermittent as thma without complication (Primary Dx); Essential hypertension; Hypercholesterolemia; Gastroesophageal reflux disease without esophagitis; Chronic bilateral low back pain without sciatica Start: 01-07-2023 End: 01-07-2023 Subsequent hospital visit by physician Johnathan Da Silva PA-C Work Phone: [facility] Radiology Comment on above: Low back pain, unspe cified; Other chronic pain Low back pain, unspe cified (Primary Dx); Other chronic pain Start: 12-29-2022 End: 12-29-2022 Office outpatient visit 25 minutes Johnathan Da Silva PA-C Work Phone: [facility] Comment on above: Chronic bilateral lo w back pain without sciatica (Primary Dx); Essential hypertension; Hypercholesterolemia; Gastroesophageal reflux disease without esophagitis Start: 11-13-2022 End: 11-13-[address] Chevy Matthew Work Phone: [facility] Work Phone: Start: 11-13-2022 End: 11-13-[address] Chevy Matthew Work Phone: [facility] Work Phone: Start: 10-23-2022 End: 10-23-[address] Chevy Matthew Work Phone: [facility] Work Phone: Start: 09-18-2022 End: 09-18-[address] Chevy Matthew Work Phone: [facility] Work Phone: Start: 07-07-2022 End: 07-07-[address] Chevy Matthew Work Phone: [facility] Work Phone: Start: 07-07-2022 End: 07-07-[address] Chevy Matthew Work Phone: [facility] Start: 06-30-2022 End: 06-30-2022 Office outpatient visit 25 minutes Chevy Matthew DO Work Phone: [facility] Comment on above: Essential hypertensi on (Primary Dx); Hypercholesterolemia; Elevated blood sugar; Sleep apnea, unspecified type; Diabetes mellitus screening; Gastroesophageal reflux disease without esophagitis; Cervical spine pain; Mild intermittent asthma without complication Start: 04-25-2022 End: 04-25-[address] Chevy Matthew Work Phone: [facility] Start: 02-05-2022 End: 02-05-2022 ambulatory CHEVY MATTHEW Facility:[facility] Start: 02-05-2022 End: 02-05-2022 Subsequent hospital visit by physician Manuel Ponce MD Work Phone: Ambulatory Surgery Comment on above: Diarrhea, unspecifie d type [R19.7] Start: 12-26-2021 Telephone encounter Belem Whelan PA-C [facility] Comment on above: Results Start: 12-24-2021 End: 12-24-2021 ambulatory CHEVY MATTHEW Facility:[facility] Start: 12-19-2021 End: 12-19-2021 ambulatory CHEVY MATTHEW Facility:[facility] Start: 12-19-2021 End: 12-19-2021 Patient encounter procedure Belem Whelan PA-C Work Phone: [facility] Comment on above: Diarrhea, unspecifie d type (Primary Dx); Elevated LFTs Start: 11-25-2021 End: 11-25-2021 ambulatory Hans Santiago MD Work Phone: [facility] Comment on above: Duodenal erosion (Pr imary Dx) Start: 11-25-2021 End: 11-25-2021 Telemedicine consultation with patient Hans Santiago MD Work Phone: [facility] Start: 08-28-2021 End: 08-28-2021 ambulatory CHEVY MATTHEW Facility:[facility] Start: 08-16-2021 ambulatory Babak Ba RN [facility] Start: 08-16-2021 Telephone follow-up Babak Ba RN NOC Comment on above: Follow Up Phone Call (RC Follow Up Call) Start: 08-15-2021 Orders Only Hans Santiago MD Work Phone: [facility] Comment on above: Duodenal erosion (Pr imary Dx) Start: 08-14-2021 Telephone encounter Chevy mandel DO Work Phone: NOC Comment on above: Follow Up Phone Call (Post Discharge F/U attempt made. No answer.) Start: 08-09-2021 End: 08-09-2021 Emergency department patient visit Keven Stratton MD Work Phone: [facility] Emergency Dept Comment on above: Elevated LFTs (Prima ry Dx) Start: 06-05-2020 End: 06-05-2020 Subsequent hospital visit by physician Jhon Mcrae Work Phone: [facility] Comment on above: Shortness of breath Procedures Date Procedure Procedure Detail Performing Clinician Start: 07-25-2024 Ecg routine ecg w/le ast 12 lds w/i&r Ramin Whitney DO Work Phone: Start: 07-25-2024 Lipid 1996 panel - S fede or Plasma Ramin Whitney DO Work Phone: Start: 02-01-2024 Lipid 1996 panel - S fede or Plasma Ramin Whitney DO Work Phone: Start: 01-28-2024 Adult depression scr eening assessment Ramin Whitney DO Work Phone: Start: 08-28-2023 Lipid 1996 panel - S fede or Plasma Ramin Whitney DO Work Phone: Start: 06-30-2022 Comprehensive metabo lic panel Chevy Matthew DO Work Phone: Start: 02-05-2022 Colonoscopy flx dx w /collj spec when pfrmd Belem Whelan PA-C Work Phone: Start: 02-05-2022 Colonoscopy Manuel gipson MD Work Phone: Start: 01-23-2022 Lipid 1996 panel - S fede or Plasma Chevy Matthew DO Work Phone: Start: 06-05-2020 Echo tthrc r-t 2d w/wom-mode compl spec&colr d Jhon D Redle Work Phone: Start: 05-25-2020 Mammography Chevy napier DO Work Phone: Start: 07-06-2017 Colonoscopy Keven lucero MD Work Phone: Start: 06-18-2017 Colonoscopy Chevy napier DO Work Phone: Plan of Treatment Date Care Activity Detail Author Start: 07-25-2034 DTaP/Tdap/Td Vaccines (2 - Td or Tdap) DTaP/Tdap/Td Vaccines (2 - Td or Tdap) [facility] Start: 02-06-2032 Colonoscopy COLONOSCOPY [facility] Start: 02-06-2032 COLORECTAL CANCER SCREENING COLORECTAL CANCER SCREENING [facility] Start: 02-06-2032 Screening for malignant neoplasm of colon [facility] Start: 07-25-2029 Lipid panel Lipid Panel [facility] Start: 01-31-2029 Lipid panel Lipid Panel [facility] Start: 08-27-2028 Lipid panel Lipid Panel [facility] Start: 07-06-2027 Screening for malignant neoplasm of colon [facility] Start: 06-18-2027 Colonoscopy COLONOSCOPY [facility] Start: 06-18-2027 COLORECTAL CANCER SCREENING COLORECTAL CANCER SCREENING [facility] Start: 01-23-2027 Lipid panel Lipid Panel [facility] Start: 04-26-2026 Medicare Annual Wellness (AWV) Medicare Annual Wellness (AWV) [facility] Start: 09-24-2025 Depression Monitoring Depression Monitoring [facility] Start: 09-01-2025 COVID-19 Vaccine ( season) COVID-19 Vaccine ( season) [facility] Start: 04-25-2025 End: 04-25-2025 Clinical Support 04/25/2025 8:30 AM EST Clinical Support [facility] [address] [place] [id number] [facility] Start: 03-27-2025 End: 03-27-2026 CBC W Auto Differential panel - Blood CBC auto differential Lab Routine Primary hypertension Expected: 03/27/2025 (Approximate), Expires: 03/27/[address] [facility] Work Phone: Comment on above: Expected: 03/27/2025 (Approximate), Expi res: 03/27/2026 Start: 03-27-2025 End: 03-27-2026 Comprehensive metabolic 1998 panel - Serum or Plasma Comprehensive metabolic panel Lab Routine Primary hypertension Expected: 03/27/2025 (Approximate), Expires: 03/27/[address] [facility] Comment on above: Expected: 03/27/2025 (Approximate), Expi res: 03/27/2026 Start: 03-27-2025 End: 03-27-2026 Lipid 1996 panel - Serum or Plasma Lipid panel Lab Routine Hypercholesterolemia Expected: 03/27/2025 (Approximate), Expires: 03/27/[address] [facility] Comment on above: Expected: 03/27/2025 (Approximate), Expi res: 03/27/2026 Start: 03-02-2025 Medicare Annual Wellness (AWV) Medicare Annual Wellness (AWV) [facility] Start: 02-07-2025 End: 02-07-2025 Patient encounter procedure [facility] Start: 02-06-2025 End: 02-06-2025 Patient encounter procedure [facility] Start: 01-27-2025 Depression Screening Depression Screening [facility] Start: 01-25-2025 Depression Monitoring Depression Monitoring [facility] Start: 01-16-2025 Influenza vaccination Influenza Vaccine (#1) [facility] Start: 09-06-2024 End: 09-06-2024 Telemedicine consultation with patient 09/06/2024 12:00 PM EDT Telemedicine [facility] [address] [place] [address] Ramin Whitney, DO [address] [place] [address] [facility] Start: 08-31-2024 End: 08-31-2024 Clinical Support 08/31/2024 1:00 PM EDT Clinical Support [facility] [address] [place] [address] [facility] Start: 08-28-2024 DIABETES SCREEN DIABETES SCREEN [facility] Start: 08-15-2024 End: 08-15-2024 Clinical Support 08/15/2024 10:20 AM EDT Clinical Support [facility] [address] [place] [address] [facility] Start: 08-13-2024 DIABETES SCREEN DIABETES SCREEN [facility] Start: 07-25-2024 End: 07-25-2025 CBC W Auto Differential panel - Blood CBC auto differential Lab Routine Essential hypertension Expected: 07/25/2024 (Approximate), Expires: 07/25/[address] [facility] Work Phone: Comment on above: Expected: 07/25/2024 (Approximate), Expi res: 07/25/2025 Start: 07-25-2024 End: 07-25-2025 Comprehensive metabolic 1998 panel - Serum or Plasma Comprehensive metabolic panel Lab Routine Essential hypertension Expected: 07/25/2024 (Approximate), Expires: 07/25/[address] [facility] Comment on above: Expected: 07/25/2024 (Approximate), Expi res: 07/25/2025 Start: 07-25-2024 End: 07-25-2025 Lipid 1996 panel - Serum or Plasma Lipid panel Lab Routine Hypercholesterolemia Expected: 07/25/2024 (Approximate), Expires: 07/25/[address] [facility] Comment on above: Expected: 07/25/2024 (Approximate), Expi res: 07/25/2025 Start: 07-25-2024 End: 07-25-2025 Thyrotropin [Units/volume] in Serum or Plasma TSH Lab Routine Hypercholesterolemia Expected: 07/25/2024 (Approximate), Expires: 07/25/[address] [facility] Comment on above: Expected: 07/25/2024 (Approximate), Expi res: 07/25/2025 Start: 07-25-2024 End: 07-25-2024 Patient encounter procedure 07/25/2024 8:00 AM EDT Office Visit [facility] [address] [place] [address] Ramin Whitney DO [address] [place] [phone] [facility] Start: 02-29-2024 End: 02-29-2024 Patient encounter procedure 02/29/2024 8:30 AM EDT Office Visit [facility] [address] [place] [address] Ramin Whitney DO [address] [place] [address] [facility] Start: 02-01-2024 End: 01-31-2025 CBC W Auto Differential panel - Blood CBC auto differential Lab Routine Essential hypertension Expected: 02/01/2024 (Approximate), Expires: 01/31/[address] [facility] Work Phone: Comment on above: Expected: 02/01/2024 (Approximate), Expi res: 01/31/2025 Start: 02-01-2024 End: 01-31-2025 Comprehensive metabolic 1998 panel - Serum or Plasma Comprehensive metabolic panel Lab Routine Essential hypertension Expected: 02/01/2024 (Approximate), Expires: 01/31/[address] [facility] Comment on above: Expected: 02/01/2024 (Approximate), Expi res: 01/31/2025 Start: 02-01-2024 End: 01-31-2025 Lipid 1996 panel - Serum or Plasma Lipid panel Lab Routine Hypercholesterolemia Expected: 02/01/2024 (Approximate), Expires: 01/31/[address] [facility] Comment on above: Expected: 02/01/2024 (Approximate), Expi res: 01/31/2025 Start: 01-17-2024 COVID-19 Vaccine () COVID-19 Vaccine () [facility] Start: 01-17-2024 COVID-19 Vaccine () COVID-19 Vaccine () [facility] Start: 08-28-2023 End: 08-27-2024 CBC W Auto Differential panel - Blood CBC auto differential Lab Routine Essential hypertension Expected: 08/28/2023 (Approximate), Expires: 08/27/[address] [facility] Work Phone: Comment on above: Expected: 08/28/2023 (Approximate), Expi res: 08/27/2024 Start: 08-28-2023 End: 08-27-2024 Comprehensive metabolic 1998 panel - Serum or Plasma Comprehensive metabolic panel Lab Routine Essential hypertension Expected: 08/28/2023 (Approximate), Expires: 08/27/[address] [facility] Comment on above: Expected: 08/28/2023 (Approximate), Expi res: 08/27/2024 Start: 08-28-2023 End: 08-27-2024 Lipid 1996 panel - Serum or Plasma Lipid panel Lab Routine Hypercholesterolemia Expected: 08/28/2023 (Approximate), Expires: 08/27/[address] [facility] Comment on above: Expected: 08/28/2023 (Approximate), Expi res: 08/27/2024 Start: 08-28-2023 End: 08-27-2024 Thyrotropin [Units/volume] in Serum or Plasma TSH Lab Routine Hypercholesterolemia Expected: 08/28/2023 (Approximate), Expires: 08/27/2024 [facility] Comment on above: Expected: 08/28/2023 (Approximate), Expi res: 08/27/2024 Start: 08-28-2023 End: 08-28-2023 Patient encounter procedure 08/28/2023 8:30 AM EDT Office Visit [facility] [address] [place] [address] Ramin Whitney F, DO [address] [place] [address] [facility] Start: 07-17-2023 COVID-19 Vaccine () COVID-19 Vaccine () [facility] Start: 05-06-2023 End: 05-06-2024 Comprehensive metabolic 1998 panel - Serum or Plasma Comprehensive metabolic panel Lab Routine Essential hypertension Hypercholesterolemia Expected: 05/06/2023 (Approximate), Expires: 05/06/2024 [facility] Work Phone: Comment on above: Expected: 05/06/2023 (Approximate), Expi res: 05/06/2024 Start: 05-06-2023 End: 05-06-2023 Patient encounter procedure [facility] Start: 01-16-2023 Influenza vaccination Influenza Vaccine (#1) [facility] Start: 12-29-2022 End: 12-27-2023 Comprehensive metabolic 1998 panel - Serum or Plasma Comprehensive metabolic panel Lab Routine Essential hypertension Hypercholesterolemia Expected: 12/29/2022 (Approximate), Expires: 12/27/2023 [facility] Work Phone: Comment on above: Expected: 12/29/2022 (Approximate), Expi res: 12/27/2023 Start: 12-29-2022 End: 12-30-2023 XR Lumbar spine 2 or 3 Views XR lumbar spine 2 or 3 views Imaging Routine Chronic bilateral low back pain without sciatica Expected: 12/29/2022, Expires: 12/30/[address] [facility] Comment on above: Expected: 12/29/2022, Expires: 4 Start: 12-29-2022 End: 12-29-2022 Patient encounter procedure 12/29/2022 Office Visit Family Medicine Johnathan Da Silva PA-C [address] [place] [address] [facility] [employer] Start: 06-18-2022 LIPID SCREEN LIPID SCREEN [facility] Start: 05-25-2022 Screening for malignant neoplasm of breast Breast cancer screen [facility] Start: 04-25-2022 Patient referral [facility] Work Phone: Start: 02-13-2022 Creatinine measurement Creatinine monitoring [facility] Start: 02-13-2022 Potassium monitoring Potassium monitoring [facility] Start: 01-16-2022 Influenza vaccination INFLUENZA (#1) [facility] Start: 12-19-2021 End: 02-18-2022 Hepatic function 2000 panel - Serum or Plasma HEPATIC FUNCTION PNL Lab Routine Elevated LFTs Expected: 12/19/2021, Expires: 02/18/2022 [facility] Work Phone: Comment on above: Expected: 12/19/2021, Expires: 2 Start: 08-22-2021 COVID-19 VACCINE (4 - Booster for Pfizer series) COVID-19 VACCINE (4 - Booster for Pfizer series) [facility] Start: 08-15-2021 End: 10-15-2021 Comprehensive metabolic 2000 panel - Serum or Plasma COMP METABOLIC PANEL Lab Routine Duodenal erosion Expected: 08/15/2021, Expires: 10/15/2021 [facility] Work Phone: Comment on above: Expected: 08/15/2021, Expires: 2 Start: 08-14-2021 Annual Wellness Visit (AWV) Annual Wellness Visit (AWV) [facility] Start: 08-13-2021 Depression Screen Depression Screen [facility] Start: 08-13-2021 End: 08-13-2021 Patient encounter procedure 08/13/2021 Office Visit Family Medicine Chevy Matthew, DO [address] [place] [id number] [facility] Start: 06-18-2021 COVID-19 VACCINE (4 - Booster for Pfizer series) COVID-19 VACCINE (4 - Booster for Pfizer series) [facility] Start: 05-31-2021 Creatinine measurement Creatinine monitoring [place], [place] Start: 05-31-2021 Potassium monitoring Potassium monitoring [place], [place] Start: 05-30-2021 Lipid panel Lipid screen [facility] Start: 05-25-2021 Mammography MAMMOGRAM [facility] Start: 05-18-2021 ADVANCE DIRECTIVE DISCUSSION ADVANCE DIRECTIVE DISCUSSION [facility] Start: 04-28-2021 Shingles Vaccine (3 of 3) Shingles Vaccine (3 of 3) [facility] Start: 06-07-2020 End: 06-07-2020 Office Visit 06/07/2020 Office Visit Cardiology Melida Sánchez, ANALYTICS INTERN - INFORMATION SYSTEMS SECURITY OFFICER [address], [address] [place] [address] [phone] [facility]O JONE Start: 08-15-2019 Screening for malignant neoplasm of breast Breast cancer screen [place], [place] Start: 05-31-2019 Diabetes mellitus screening Diabetes Screening [facility] Start: 11-07-2018 Annual Wellness Visit (AWV) Annual Wellness Visit (AWV) [place], [place] Start: 03-18-2017 PNEUMOVAX AGE 65 AND OVER WITH 5YR LOOKBACK (#1) PNEUMOVAX AGE 65 AND OVER WITH 5YR LOOKBACK (#1) [facility] Start: 03-18-2013 PNEUMOCOCCAL: 65+ (1 - PCV) PNEUMOCOCCAL: 65+ (1 - PCV) [facility] Start: 03-18-2013 PNEUMOCOCCAL: 65+ (2 - PCV) PNEUMOCOCCAL: 65+ (2 - PCV) [facility] Start: 02-08-2013 Shingles Vaccine (2 of 3) Shingles Vaccine (2 of 3) [place] Start: 01-10-2013 SHINGRIX VACCINE (2 of 3) SHINGRIX VACCINE (2 of 3) [facility] Start: 2007 Hepatitis B Vaccines (1 of 3 - Risk 3-dose series) Hepatitis B Vaccines (1 of 3 - Risk 3-dose series) [facility] Start: 2007 RSV Immunization aged 60 or older (1 - 1-dose 60+ series) RSV Immunization aged 60 or older (1 - 1-dose 60+ series) [facility] Start: 11-29-1992 COLOGUARD (FIT-DNA) COLOGUARD (FIT-DNA) [facility] Start: 11-29-[address] COLONOGRAPHY [facility] Start: 11-29-1992 FECAL OCCULT BLOOD FECAL OCCULT BLOOD [facility] Start: 11-29-1992 Screening for malignant neoplasm of colon [facility] Start: 11-29-1992 SIGMOIDOSCOPY SIGMOIDOSCOPY [facility] Start: 1987 Screening for malignant neoplasm of breast Mammogram [facility] Start: 11-29-1966 DTaP/Tdap/Td vaccine (1 - Tdap) DTaP/Tdap/Td vaccine (1 - Tdap) [facility] Start: 11-29-1966 DTaP/Tdap/Td Vaccines (1 - Tdap) DTaP/Tdap/Td Vaccines (1 - Tdap) [facility] Start: 11-29-1966 Hepatitis A Vaccines (1 of 2 - Risk 2-dose series) Hepatitis A Vaccines (1 of 2 - Risk 2-dose series) [facility] Start: 11-29-1966 Urine microalbumin profile DTAP,TDAP,TD (1 - Tdap) [facility] Start: 11-29-1965 Diabetes mellitus screening Diabetes Screening [facility] Start: 11-29-1965 HEPATITIS C SCREENING HEPATITIS C SCREENING [facility] Start: 1959 Adult depression screening assessment DEPRESSION SCREENING [facility] Start: 11-29-1948 Hepatitis A Vaccines (1 of 2 - Risk 2-dose series) Hepatitis A Vaccines (1 of 2 - Risk 2-dose series) [facility] Start: 1947 Screening for malignant neoplasm of colon [facility] Start: 1947 Screening for osteoporosis Bone Density Scan [facility] Calprotectin [Mass/m ass] in Stool CALPROTECTIN,FECAL Lab Routine Diarrhea, unspecified type Ordered: 12/19/2021 [facility] Work Phone: Comment on above: Ordered: 12/19/2021 Clostridioides diffi cile toxin genes [Presence] in Stool by DEAN with probe detection C. DIFFICILE PCR Lab Routine Diarrhea, unspecified type Ordered: 12/19/2021 [facility] Work Phone: Comment on above: Ordered: 12/19/2021 End: 08-09-2021 Comprehensive metabolic 2000 panel - Serum or Plasma [facility] Work Phone: Comment on above: One Time for 1 Occurrences starting 07/17 until 08/09/2021 CULTURE, YERSINIA CULTURE, YERSI LIANNE Microbiology Routine Diarrhea, unspecified type Ordered: 12/19/2021 [facility] Work Phone: Comment on above: Ordered: 12/19/2021 FAT, FECAL QUAL FAT, FECAL QUAL Lab Routine Diarrhea, unspecified type Ordered: 12/19/2021 [facility] Work Phone: Comment on above: Ordered: 12/19/2021 Gastrointestinal pathogens panel - Stool by Culture STOOL CULTURE/EIA Microbiology Routine Diarrhea, unspecified type Ordered: 12/19/2021 [facility] Work Phone: Comment on above: Ordered: 12/19/2021 Giardia lamblia+Cryptosporidium sp Ag [Presence] in Stool by Immunoassay CRYPTOSPORIDIUM AND GIARDIA ANTIGENS BY EIA Microbiology Routine Diarrhea, unspecified type Ordered: 12/19/2021 [facility] Work Phone: Comment on above: Ordered: 12/19/2021 End: 08-09-2021 Hemogram (CBC) [facility] Work Phone: Comment on above: One Time for 1 Occurrences starting 07/17 until 08/09/2021 End: 08-09-2021 Lactate [Moles/volume] in Serum or Plasma [facility] Work Phone: Comment on above: One Time for 1 Occurrences starting 07/17 until 08/09/2021 End: 08-09-2021 Lipase [Enzymatic activity/volume] in Serum or Plasma [facility] Work Phone: Comment on above: One Time for 1 Occurrences starting 07/17 until 08/09/2021 OUTSIDE PROCEDURE SCAN OUTSIDE P ROCEDURE SCAN Procedures Ordered: 01/07/2023 [employer] Comment on above: Ordered: 01/07/2023 PANC ELASTASE, FECAL PANC ELASTA SE, FECAL Lab Routine Diarrhea, unspecified type Ordered: 12/19/2021 [facility] Work Phone: Comment on above: Ordered: 12/19/2021 Patient referral [facility] Work Phone: SURGICAL PATHOLOGY [facility] Work Phone: Comment on above: Release Upon Ordering for 1 Occurrences starting 02/05/2022, 1 completed US Heart [facility] End: 01-07-2023 XR Lumbar spine 2 or 3 Views [employer] Work Phone: Comment on above: Once for 1 Occurrences starting 01/08/20 until 01/07/2023 [facility] Immunizations Immunization Date Immunization Notes Care Provider Lucina riley 03-03-2025 influenza, high dose seasonal, preservative-free Ramin Paynea DO Work Phone: [facility] 07-25-2024 tetanus toxoid, redu janine diphtheria toxoid, and acellular pertussis vaccine, adsorbed [employer] DO Work Phone: [facility] 02-01-2024 Seasonal trivalent influenza vaccine, adjuvanted, preservative free Ramin Kiwiplenaomi DO Work Phone: [facility] 02-01-2024 influenza virus vacc ine, unspecified formulation Mandy Quinn MA [facility] 12-29-2023 RSV, bivalent, prote in subunit RSVpreF, diluent reconstututed, 0.5 mL, PF Ramin [employer] DO Work Phone: [facility] 03-03-2022 influenza virus vacc ine, unspecified formulation Johnathan Da Silva PA-C Work Phone: [facility] 04-23-2021 Pfizer SARS-CoV-2 Vaccination Chevy Matthew DO Work Phone: [facility] 03-03-[address] Chevy Matthew Work Phone: [facility] 08-28-2020 Pfizer SARS-CoV-2 Vaccination Chevy Matthew DO Work Phone: [facility] 07-15-2020 Pfizer SARS-CoV-2 Vaccination Chevy Matthew DO Work Phone: [facility] 02-15-2020 influenza, injectabl e, quadrivalent, preservative free Dr. Chevy Matthew DO Work Phone: [facility] 02-15-2020 influenza, seasonal, injectable Dr. Chevy Matthew Work Phone: [facility] 02-28-[address] Chevy Matthew Work Phone: [facility] 02-24-2019 influenza, high dose seasonal, preservative-free [facility] [place] [facility] 03-09-2018 influenza, injectabl e, quadrivalent, preservative free Dr. Chevy Matthew DO Work Phone: [facility] 03-09-2018 influenza, seasonal, injectable Dr. Chevy Matthew Work Phone: [facility] 03-08-2018 influenza, high dose seasonal, preservative-free [facility] 11-25-2017 pneumococcal polysaccharide vaccine, 23 valent [facility] 11-25-2016 pneumococcal conjuga te vaccine, 13 valent [facility] 03-28-2016 influenza, injectabl e, quadrivalent, contains preservative [facility] 03-07-2014 influenza virus vacc ine, unspecified formulation [facility] [place] 02-15-2013 Influenza Vaccine, unspecified formulation [facility] [place] 02-15-2013 influenza virus vacc ine, unspecified formulation Chevy Matthew DO Work Phone: [facility] 12-14-2012 zoster vaccine, live [facility] [place] 11-15-2012 zoster vaccine, live [facility] 04-13-2012 pneumococcal polysaccharide vaccine, 23 valent [facility] 03-18-2012 pneumococcal polysaccharide vaccine, 23 valent [facility] 05-18-2009 novel influenza-H1N1 -09, all formulations Chevy Matthew Work Phone: [facility] Work Phone: 05-18-2009 novel influenza-H1N1 -09, injectable [facility] 02-15-2009 influenza nasal, unspecified formulation [facility] [place] 02-15-2009 influenza virus vacc ine, live, attenuated, for intranasal use Keven Stratton MD Work Phone: [employer] Work Phone: Payers Date Payer Category Payer Self-pay [id number] 2017 Medicare supplementa l policy (as second payer) JOHN MEDICARE SUPPLEMENT [id number] 2017 Unknown JOHN LOPEZ [place] DICARE SUPPLEMENT [id number] 2017-Present [phone] [address] [place] [address] Indemnity [id number] 2017 Unknown [id number] 2017 Unknown [id number] 2012 Medicare [id number] 2012 Medicare MEDICARE MEDICAR E A AND B [id number] 2012-Present [phone] [place] [address] Medicare [id number] 2012 Medicare [id number] Private Health Insurance [id number] Unknown [facility] *DO NOT USE* [id number] Unknown [id number] Unknown [id number] Unknown [id number] Unknown [id number] Social History Date Type Detail Facility Start: 05-09-2020 End: 10-23-2022 Tobacco smoking status NHIS Never smoker [place] Start: 03-13-2011 End: 05-09-2020 Tobacco use and exposure Never used [facility] [place] Start: 05-09-2020 End: 03-27-2025 Alcohol intake Current non-drinker of alcohol (finding) [place] Start: 08-30-2018 History SDOH Alcohol Frequency 1 [place] Start: 08-30-2018 History SDOH Social Connections Phone 5 [place] Start: 08-30-2018 History SDOH Social Connections Get Together 2 [facility] Start: 08-30-2018 History SDOH Social Connections Denominational 3 [facility] Start: 08-30-2018 History SDOH Physical Activity DPW 0 [facility] Start: 1945 Sex Assigned At Female [facility] Start: 08-09-2021 End: 01-28-2024 Alcohol intake [facility] Work Phone: Start: 07-30-2021 End: 01-07-2023 Exposure to SARS-CoV-2 (event) Not sure [facility] Work Phone: Start: 11-15-2021 End: 11-25-2021 Exposure to SARS-CoV-2 (event) Unable to assess [facility] Start: 04-25-2022 End: 10-23-2022 Tobacco smoking status NHIS Unknown if ever smoked [facility] Start: 04-05-2020 None [facility] Start: 04-05-2020 Alone [facility] Start: 09-26-2021 Non-smoker [facility] Start: 12-26-2022 End: 01-28-[address] use [address] [facility] Start: 03-07-2022 Gender identity Identifies as female gender (finding) [facility] Start: 03-07-2022 Sexual orientation Heterosexual (finding) [facility] How often do you nee d to have someone help you when you read instructions, pamphlets, or other written material from your doctor or pharmacy [SILS] Never [facility] Has the [employer], [employer], or [employer] threatened to shut off services in your home in past 12Mo No [facility] Do you belong to any clubs or organizations such as orthodox groups, unions, fraternal or athletic groups, or school groups? Yes [facility] Are you now , , , , never or living with a partner? [facility] Do you feel stress - tense, restless, nervous, or anxious, or unable to sleep at night because your mind is troubled all the time - these days [OSQ] Not at all [facility] (I/We) worried wheth er (my/our) food would run out before (I/we) got money to buy more. Never [facility] Start: 12-16-2021 Sex Female (finding) [employer] [facility] How often do you nee d to have someone help you when you read instructions, pamphlets, or other written material from your doctor or pharmacy [SILS] Never [employer] [facility] Medical Equipment Procedure Code Equipment Code Equipment Origin al Text Equipment Identifier Dates Total cholecystectomy with exploration of common bile duct CLIP,HEMfarmhoppingCK [employer] WECK FDA Start: 07-07-2019 Total cholecystectomy with exploration of common bile duct CLIP,HEMOLOCK [employer] FDA Start: 07-07-2019 Total cholecystectomy with exploration of common bile duct SURGICEL, POWDER 3GR FDA Start: 07-07-2019 Total cholecystectomy with exploration of common bile duct CLIP,HEMOLOCK [employer] FDA Start: 07-07-2019 Total cholecystectomy with exploration of common bile duct CLIP,HEMOLOCK [employer] FDA Start: 07-07-2019 Total cholecystectomy with exploration of common bile duct SURGICEL, POWDER 3GR FDA Start: 07-07-2019 Total cholecystectomy with exploration of common bile duct CLIP,HEMOLOCK [employer] FDA Start: 07-07-2019 Total cholecystectomy with exploration of common bile duct CLIP,HEMOLOCK [employer] FDA Start: 07-07-2019 Total cholecystectomy with exploration of common bile duct SURGICEL, POWDER 3GR FDA Start: 07-07-2019 Total cholecystectomy with exploration of common bile duct CLIP,HEMOLOCK [employer] FDA Start: 07-07-2019 Total cholecystectomy with exploration of common bile duct CLIP,HEMOLOCK [employer] FDA Start: 07-07-2019 Total cholecystectomy with exploration of common bile duct SURGICEL, POWDER 3GR FDA Start: 07-07-2019 ERCP (endoscopic retrograde cholangiopancreatograph y) STENT, ZIMMON PANCREATIC FDA Start: 08-08-2021 ERCP (endoscopic retrograde cholangiopancreatograph y) STENT, ZIMMON PANCREATIC FDA Start: 08-08-2021 ERCP (endoscopic retrograde cholangiopancreatograph y) STENT, ZIMMON PANCREATIC FDA Start: 08-08-2021 ERCP (endoscopic retrograde cholangiopancreatograph y) STENT, ZIMMON PANCREATIC FDA Start: 08-08-2021 Functional Status Date Assessment Result Facility 03-27-2025 Drug Abuse Screening Test-10 [DAST-10] [facility] 03-27-2025 Alcohol Use Disorder Identification Test [AUDIT] [facility] 03-27-2025 Patient Health Questionnaire 2 item (PHQ- 2) [Reported] [facility] Clinical Notes 07-17-2021 to 03-27-2025 Assessment & Plan Note - Ramin Whitney DO - 03/27/2025 7:00 AM ESTAssessment & Plan Note - Ramin Whitney DO - 03/27/2025 7:00 AM Susi Whitney DO - 03/27/2025 7:00 AM EST Note Date & Type Note Facility 03-27-2025 Evaluation + Plan note Associ ated Problem(s): Hypertension Orders: CBC auto differential; Future Comprehensive metabolic panel; Future [facility] 03-27-2025 Evaluation + Plan note Associ ated Problem(s): Hypercholesterolemia Orders: Lipid panel; Future [facility] 03-27-2025 Evaluation + Plan note Associ ated Problem(s): Mild intermittent asthma without complication [facility] 03-27-2025 Evaluation + Plan note Associ ated Problem(s): Gastroesophageal reflux disease without esophagitis [facility] 03-27-2025 Evaluation + Plan note Associ ated Problem(s): History of CVA (cerebrovascular accident) [facility] 03-27-2025 Evaluation + Plan note Associ ated Problem(s): Left ventricular diastolic dysfunction with preserved systolic function [facility] 03-27-2025 History of Presen t illness Narrative Images from the original note were not included. [facility] [address] [facility] [address] Dept: [phone] Dept Chief Complaint: Sharron Torres is an 79 y.o. female here for an annual wellness visit. Hypertensive patient with history of remote TIA, LVH with preserved left ventricular function presents for annual wellness exam. Overall she has been well. Missing some losartan late in the day. Recent echocardiogram in December per cardiology was stable. Blood pressure at that time was well. Assessment/Plan : Assessment & Plan Primary hypertension Orders: CBC auto differential; Future Comprehensive metabolic panel; Future Hypercholesterolemia Orders: Lipid panel; Future Mild intermittent asthma without complication Gastroesophageal reflux disease without esophagitis History of CVA (cerebrovascular accident) Left ventricular diastolic dysfunction with preserved systolic function Encounter for subsequent annual wellness visit (AWV) in Medicare patient Routine general medical examination at health care facility I have reviewed and reconciled the medication list with the patient today. Current Medications[1] Also reviewed during this visit: Meds Problems Med Hx Surg Hx Fam Hx The following health maintenance schedule was reviewed with the patient and provided in printed form in the after visit summary: Health Maintenance Topic Date Due Bone Density Scan Never done Medicare Annual Wellness (AWV) 03/02/2025 COVID-19 Vaccine ( season) 2025 Depression Monitoring 09/24/2025 Lipid Panel 07/25/2029 DTaP/Tdap/Td Vaccines (2 - Td or Tdap) 07/25/2034 RSV Immunization for Adults Completed Influenza Vaccine Completed Pneumococcal Vaccine: 50+ Years Completed Zoster Vaccines Completed Hepatitis C Screening Completed RSV Immunization under 20 Months Aged Out HIB Vaccines Aged Out Hepatitis B Vaccines Aged Out IPV Vaccines Aged Out Hepatitis A Vaccines Aged Out Meningococcal Vaccine Aged Out Rotavirus Vaccines Aged Out HPV Vaccines Aged Out Meningococcal B Vaccine Aged Out Colorectal Cancer Screening Discontinued List of current healthcare providers: Patient Care Team: Ramin Whitney DO as PCP - General (Family Medicine) Orders Placed This Encounter Procedures CBC auto differential Standing Status: Future Number of Occurrences: 1 Expected Date: 03/27/2025 Expiration Date: 03/27/2026 Comprehensive metabolic panel Standing Status: Future Number of Occurrences: 1 Expected Date: 03/27/2025 Expiration Date: 03/27/2026 Lipid panel Standing Status: Future Number of Occurrences: 1 Expected Date: 03/27/2025 Expiration Date: 03/27/2026 Review of Systems overall feeling well. Allergies treated well with Singulair. No recent purulent phlegm or fever. Denies exertional chest pain but does get some dyspnea on exertion. Recent echo was normal. Of note she has had a few heart catheterizations without CAD. No change in heartburn. Some constipation diarrhea depending on what she eats but no melena or blood. No colonoscopy indicated. No change in bowels or bladder otherwise. No new arthralgias. Tylenol is effective. Physical Exam The physical exam is generally normal. Patient appears well, alert and oriented x 3, pleasant, cooperative. Vitals are as noted. Neck supple, no abnormal adenopathy, thyroid lesions or masses.. No carotid bruits lungs are clear to auscultation. Heart is regular, without murmurs, gallops or ectopy. Abdomen is soft, non tender, without masses, hepatosplenomegaly, or bruits. Normal BS evident. Extremities are normal without edema. Peripheral pulses are good. No worrisome skin lesions. Screening neurological exam is normal without focal deficits. Fair hip range of motion Objective : BP (!) 148/78 Pulse 68 Temp 36.7 C (98 F) (Temporal) Ht 5' 2 (1.575 m) Wt 165 lb (74.8 kg) SpO2 95% BMI 30.18 kg/m No results found. Subjective : Health Risk Assessment: General: General In general, how would you say your health is?: (!) Fair Are you currently experiencing any of the following? (select all that apply): None of these Health Habits and Nutrition: Health Habits and Nutrition On average, how many days per week do you engage in moderate to strenous exercise?: (!) 0 Days Have you lost any weight without trying in the past 3 months? : No Have you seen the dentist within the past year?: Yes Interventions: Dental hearing and vision exams apparently up to date Hearing and Vision: Hearing and Vision Do you or your family notice any trouble with your hearing?: (!) Yes Do you have difficulty driving, watching TV, or doing any of your daily activities because of your eyesight?: No Have you had an eye exam within the past year?: Yes No results found. Interventions: Vision concerns: Patient declines any further evaluation / treatment for this issue Safety: Safety Do you have working smoke detectors?: Yes Do you have tripping hazards at home?: No Do you have either shower bars, grab bars, non-slip mats, or non-slip surfaces in your shower or bathtub?: Yes Do all your stairways have a railing or banister? : Yes Do you always fasten your seatbelt when you are in a car?: Yes ADL: ADL Are you needing any help from others to perform any of the following everyday activities?: None Are you needing any help from others to take care of any of the following?: None Living Will / POA: Living Will/POA Do you have a living will?: Yes Do you have a healthcare power of mixer wet pour?: Yes Cognitive: Cognitive Screening: Mini-Cog Clock Drawing Test (CDT): 2 Words Recalled: 3 Total Score: 5 Total Score Interpretation: Normal Mini-Cog Fall Risk: Fall Risk One or more falls in the last year:: No Advised to use a cane or walker to get around safely:: No Feels unsteady when walking:: No Steadies self on furniture while walking at home:: No Worried about falling:: No Depression Screening: Over the past 2 weeks, how often have you been bothered by any of the following problems? Little interest or pleasure in doing things: Not at all Feeling down, depressed, or hopeless: Not at all Patient Health Questionnaire-2 Score: 0 Tobacco Use: Tobacco Use History[2] Alcohol Use: Audit Alcohol Screening Q2: How many drinks containing alcohol do you have on a typical day when you are drinking?: Patient does not drink Social Drivers of Health: [facility] risk assessment performed and documented today by members of the health care team. A total time of 0-5 minutes was spent obtaining information from the patient and discussing options to address the patient's social risk factors and unmet needs. Social Drivers of Health with Concerns Concerns Present Physical Activity: Insufficiently Active (01/28/2024) Unknown Concern Alcohol Use: Unknown (03/27/2025) Housing Stability: Unknown (01/28/2024) 1. Primary hypertension Uncontrolled, increase losartan to 50 mg twice a day. Continue HCTZ and metoprolol. BP check with staff in 4 weeks - CBC auto differential; Future - Comprehensive metabolic panel; Future - CBC auto differential - Comprehensive metabolic panel 2. Hypercholesterolemia Stable, continue Lipitor and low-fat meals - Lipid panel; Future - Lipid panel 3. Mild intermittent asthma without complication Stable, continue Singulair 4. Gastroesophageal reflux disease without esophagitis Stable, continue Prilosec 5. History of CVA (cerebrovascular accident) Stable, continue baby aspirin and recheck BP in 4 weeks 6. Left ventricular diastolic dysfunction with preserved systolic function 7. Encounter for subsequent annual wellness visit (AWV) in Medicare patient (Primary) [1] Current Outpatient Medications Medication Sig Dispense Refill acetaminophen (Tylenol 8 Hour) 650 MG ER tablet Take 650 mg by mouth every 8 hours as needed for mild pain (1-3). Do not crush, chew, or split. Ascorbic Acid (vitamin C) 1000 MG tablet Take 1,000 mg by mouth daily. aspirin 81 MG EC tablet Take 81 mg by mouth. atorvastatin (Lipitor) 80 MG tablet Take 1 tablet (80 mg) by mouth daily. 90 tablet 1 biotin 90256 MCG tablet Take by mouth. (Patient taking differently: Take 5,000 mcg by mouth daily.) Cholecalciferol (D3 ADULT PO) Take 600 Units by mouth daily. (Patient taking differently: Take 2,000 Units by mouth daily.) hydroCHLOROthiazide 12.5 MG tablet Take 1 tablet (12.5 mg) by mouth daily. 90 tablet 1 losartan (Cozaar) 50 MG tablet Increase to 1 tablet twice a day 180 tablet 3 metoprolol tartrate (Lopressor) 50 MG tablet Take 1 tablet (50 mg) by mouth 2 times daily. 180 tablet 1 omega-3 (Fish Oil) 1000 MG capsule Take 2,000 mg by mouth daily. 2,000 omeprazole (PriLOSEC) [address] capsule Take 1 capsule (20 mg) by mouth daily. Do not crush or chew. 90 capsule 1 pyridoxine (Vitamin B-6) 100 MG tablet Take 100 mg by mouth daily. montelukast (Singulair) 10 MG tablet Take 1 tablet (10 mg) by mouth Nightly. 90 tablet 3 No current facility-administered medications for this visit. [2] Social History Tobacco Use Smoking Status Never Smokeless Tobacco Never documented in this encounter [facility] 03-27-2025 Instructions Ramin Whitney DO - 03/27/2025 7:00 AM EST Personalized Preventative Plan for Sharron Torres - 03/27/2025 Medicare offers a range of preventative health benefits. Some of the tests and screenings are paid in full while others may be subject to a deductible, co-insurance, and / or copay. Some of these benefits include a comprehensive review of your medical history including lifestyle, illnesses that may run in your family, and various assessments and screenings as appropriate. After reviewing your medical record and screening and assessments performed today, your provider may have ordered immunizations, labs, imaging, and / or referrals for you. A list of these orders (if applicable) as well as your Preventative Care list are included within your After Visit Summary for your review. Other Preventative Recommendations: A preventive eye exam by an hris specialist is recommended every 1-2 years to screen for glaucoma, cataracts, macular degeneration, and other eye disorders. A preventive dental visit is recommended every 6 months. Try to get at least 150 minutes of exercise per week or 10,000 steps per day on a pedometer. You need 1200-1500mg of calcium and [id number] international units of vitamin D per day. It is possible to meet your calcium requirement with diet alone, but a vitamin D supplement is usually necessary to meet this goal. When exposed to the sun, use a sunscreen that protects against both UVA and UVB radiation with an SPF of 30 or greater. Reapply every 2-3 hours or after sweating, drying off with a towel, or swimming. Always wear a seat belt when traveling in a car. Always wear a helmet when riding a bicycle or a motorcycle documented in this encounter [facility] 03-27-2025 Miscellaneous Notes Associate d Problem(s): Hypertension Orders: CBC auto differential; Future Comprehensive metabolic panel; Future Associated Problem(s): Hypercholesterolemia Orders: Lipid panel; Future Associated Problem(s): Mild intermittent asthma without complication Associated Problem(s): Gastroesophageal reflux disease without esophagitis Associated Problem(s): History of CVA (cerebrovascular accident) Associated Problem(s): Left ventricular diastolic dysfunction with preserved systolic function documented in this encounter [facility] 01-13-2025 Telephone encount er Note Recent Visits Date Type Provider Dept 07/25/24 Office Visit Ramin Whitney DO [facility] 02/01/24 Office Visit Ramin Whitney DO [facility] Showing recent visits within past 365 days and meeting all other requirements Future Appointments No visits were found meeting these conditions. Showing future appointments within next 90 days and meeting all other requirements Requested Prescriptions Pending Prescriptions Disp Refills atorvastatin (Lipitor) 80 MG tablet 90 tablet 1 Sig: Take 1 tablet (80 mg) by mouth daily. metoprolol tartrate (Lopressor) 50 MG tablet 180 tablet 1 Sig: Take 1 tablet (50 mg) by mouth 2 times daily. omeprazole (PriLOSEC) [address] capsule 90 capsule 1 Sig: Take 1 capsule (20 mg) by mouth daily. Do not crush or chew. hydroCHLOROthiazide 12.5 MG tablet 90 tablet 1 Sig: Take 1 tablet (12.5 mg) by mouth daily. Provider:Dr Whitney Verified pharmacy: yes Verified day(s) supplied: yes Verified refill(s) needed (previous prescription showing no refills in chart): Yes Have you received any controlled medications from any other provider? N/A Overdue for visit: N/A If yes - patient scheduled? N/A Most recent labs completed in chart? N/A None [facility] 01-13-2025 Miscellaneous Notes Formattin g of this note is different from the original. Recent Visits Date Type Provider Dept 07/25/24 Office Visit Ramin Whitney, DO [facility] 02/01/24 Office Visit Ramin Kelvin DO [facility] Showing recent visits within past 365 days and meeting all other requirements Future Appointments No visits were found meeting these conditions. Showing future appointments within next 90 days and meeting all other requirements Requested Prescriptions Pending Prescriptions Disp Refills atorvastatin (Lipitor) 80 MG tablet 90 tablet 1 Sig: Take 1 tablet (80 mg) by mouth daily. metoprolol tartrate (Lopressor) 50 MG tablet 180 tablet 1 Sig: Take 1 tablet (50 mg) by mouth 2 times daily. omeprazole (PriLOSEC) [address] capsule 90 capsule 1 Sig: Take 1 capsule (20 mg) by mouth daily. Do not crush or chew. hydroCHLOROthiazide 12.5 MG tablet 90 tablet 1 Sig: Take 1 tablet (12.5 mg) by mouth daily. Provider:Dr Whitney Verified pharmacy: yes Verified day(s) supplied: yes Verified refill(s) needed (previous prescription showing no refills in chart): Yes Have you received any controlled medications from any other provider? N/A Overdue for visit: N/A If yes - patient scheduled? N/A Most recent labs completed in chart? N/A None documented in this encounter [facility] 11-21-2024 Evaluation note Diagnosis Onset Date Resolution ABRAHAM (dyspnea on exertion) acute November 21, 2024 10:31am Essential hypertension chronic November 21, 2024 10:31am History of CVA (cerebrovascular accident) July 17, 2021 chronic November 21, 2024 10:31am [facility] Work Phone: [phone]) 834-249705-28-2025 Telephone encounter Note* Telephone Encounter - Maira Melchor MA - 10/12/2024 9:19 AM EDT Recent Visits Date Type Provider Dept 07/25/24 Office Visit Ramin Whitney, DO [facility] 02/01/24 Office Visit Ramin Whitney DO [facility] Showing recent visits within past 365 days and meeting all other requirements Future Appointments No visits were found meeting these conditions. Showing future appointments within next 90 days and meeting all other requirements Requested Prescriptions Pending Prescriptions Disp Refills amLODIPine (Norvasc) 5 MG tablet [Pharmacy Med Name: AMLODIPINE BESYLATE 5 MG TAB] 90 tablet 3 Sig: Take 1 tablet (5 mg) by mouth daily. Provider: Ramin Whitney DO Verified pharmacy: yes Verified day(s) supplied: yes Verified refill(s) needed (previous prescription showing no refills in chart): Yes Have you received any controlled medications from any other provider? N/A Overdue for visit: No If yes - patient scheduled? Yes - 02/07/2025 Most recent labs completed in chart? Yes Hypertension: Lab Results Component Value Date NA 142 02/13/2021 K 4.9 02/13/2021 EGFR 87 07/25/2024 BUN 20 07/25/2024 CREATININE 0.72 07/25/[address] [id number] Miscellaneous Notes* Telephone Encounter - Maira Melchor MA - 10/12/2024 9:19 AM EDT Recent Visits Date Type Provider Dept 07/25/24 Office Visit Ramin Whitney DO [facility] 02/01/24 Office Visit Ramin WhitneyDO [facility] Showing recent visits within past 365 days and meeting all other requirements Future Appointments No visits were found meeting these conditions. Showing future appointments within next 90 days and meeting all other requirements Requested Prescriptions Pending Prescriptions Disp Refills amLODIPine (Norvasc) 5 MG tablet [Pharmacy Med Name: AMLODIPINE BESYLATE 5 MG TAB] 90 tablet 3 Sig: Take 1 tablet (5 mg) by mouth daily. Provider: Ramin Whitney DO Verified pharmacy: yes Verified day(s) supplied: yes Verified refill(s) needed (previous prescription showing no refills in chart): Yes Have you received any controlled medications from any other provider? N/A Overdue for visit: No If yes - patient scheduled? Yes - 02/07/2025 Most recent labs completed in chart? Yes Hypertension: Lab Results Component Value Date NA 142 02/13/2021 K 4.9 02/13/2021 EGFR 87 07/25/2024 BUN 20 07/25/2024 CREATININE 0.72 07/25/2024 [id number] Telephone encounter Note* Telephone Encounter - Elizabeth Nunez MA - 10/11/2024 11:35 AM EDT Recent Visits Date Type Provider Dept 07/25/24 Office Visit Ramin Whitney DO [facility] 02/01/24 Office Visit Ramin Whitney DO [facility] Showing recent visits within past 365 days and meeting all other requirements Future Appointments No visits were found meeting these conditions. Showing future appointments within next 90 days and meeting all other requirements Requested Prescriptions Pending Prescriptions Disp Refills hydroCHLOROthiazide 12.5 MG tablet [Pharmacy Med Name: HYDROCHLOROTHIAZIDE 12.5 MG TB] 90 tablet 1 Sig: Take 1 tablet (12.5 mg) by mouth daily. Provider: Ramin Whitney DO Verified pharmacy: yes Verified day(s) supplied: yes Verified refill(s) needed (previous prescription showing no refills in chart): Yes Have you received any controlled medications from any other provider? N/A Overdue for visit: No If yes - patient scheduled? N/A Most recent labs completed in chart? N/A [id number] Miscellaneous Notes* Telephone Encounter - Elizabeth Nunez MA - 10/11/2024 11:35 AM EDT Recent Visits Date Type Provider Dept 07/25/24 Office Visit Ramin Wihtney DO [facility] 02/01/24 Office Visit Ramin Whitney DO [facility] Showing recent visits within past 365 days and meeting all other requirements Future Appointments No visits were found meeting these conditions. Showing future appointments within next 90 days and meeting all other requirements Requested Prescriptions Pending Prescriptions Disp Refills hydroCHLOROthiazide 12.5 MG tablet [Pharmacy Med Name: HYDROCHLOROTHIAZIDE 12.5 MG TB] 90 tablet 1 Sig: Take 1 tablet (12.5 mg) by mouth daily. Provider: Ramin Whitney DO Verified pharmacy: yes Verified day(s) supplied: yes Verified refill(s) needed (previous prescription showing no refills in chart): Yes Have you received any controlled medications from any other provider? N/A Overdue for visit: No If yes - patient scheduled? N/A Most recent labs completed in chart? N/A None documented in this [facility]04-16-2025 History of Present illness Narrative* Flavia Chow MA - 08/31/2024 1:00 PM EDT The patient, Sharron Torres, identity was verified by name and . Supervising provider for clinic visit: Dr. Ramin Whitney Chief Complaint Patient presents with Blood Pressure Check Reason for visit: Elevated BP Reading at last visit Sharron Torres has validated current medications Patient states compliant with medications as written: Yes BP medication taken prior to this visit? Yes Are you having any symptoms? No Current Blood Pressure:133/70 Current Heart Rate:56 Did Blood Pressure need rechecked: no Second Blood Pressure Reading: Second Heart Rate: Assessment/Plan: There are no diagnoses linked to this encounter. elevated Future Appointments Date Time Provider Department Center 02/07/2025 8:00 AM Johnathan Da Silva PA-C [facility] Cc'd provider blood pressure readings? Yes * Flavia Chow MA - 08/31/2024 1:00 PM EDT Bp log in media for your review * Ramin Whitney DO - 08/31/2024 1:00 PM EDT Blood pressure stable, no med changes * Flavia Chow MA - 08/31/2024 1:00 PM EDT Placed call to patient. Two patient identifers confirmed. Was able to speak to patient. All concerns in message have been addressed. No questions at this time. Call ended documented in this [facility]03-31-2025 History of Present illness Narrative* Meera Crouch MA - 08/15/2024 10:20 AM EDT Images from the original note were not included. [address] [place] [address] [address] [facility] [phone] @[email or web address]@ Patient arrived for nurse visit today. Two patient identifiers used to confirm correct patient yes Supervising provider for clinic visit Dr. Whitney is taking Losartan 50mg (pm) and Metoprolol 100mg (am) for hypertension with excellent compliance and dizziness side effects regular Shortness of breath no Medication compliance yes Medication Reconciliation yes BP Medication taken prior to visit yes at what time 7:00am B/P Reading taken manual Home Monitoring yes Patient advised if follow up is needed, outreach will occur in 48 hours First BP:175/72 Second BP:164/76 HR:58 * Ramin Whitney DO - 08/15/2024 10:20 AM EDT Blood pressure still too high. I recommend increasing losartan to 50 mg twice a day. Do that for 2 weeks and return for blood pressure evaluation. I also prescribed a diuretic hydrochlorothiazide which I think she will need at that time. 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 * Flavia Chow MA - 08/15/2024 10:20 AM EDT Placed call to patient. Two patient identifers confirmed. Was able to speak to patient. All concerns in message have been addressed. No questions at this time. Call ended documented in this [facility]03-10-2025 History of Present illness Narrative* Ramin Whitney DO - 07/25/2024 8:00 AM EDT Images from the original note were not included. [facility] - [address] [facility] [id number] Visit type: Established Patient Reason for Visit: Follow-up (Med check) Assessment / Plan: Sharron was seen today for follow-up. Diagnoses and all orders for this visit: Edema, unspecified type (Primary) Comments: Multifactorial. Probably due to NSAID and amlodipine. Changed to losartan. Essential hypertension - metoprolol tartrate (Lopressor) 50 MG tablet; Take 1 tablet (50 mg) by mouth 2 times daily. - CBC auto differential; Future - Comprehensive metabolic panel; Future - ECG 12 lead; Future - CBC auto differential - Comprehensive metabolic panel - ECG 12 lead Hypercholesterolemia Comments: Stable on Lipitor Orders: - atorvastatin (Lipitor) 80 MG tablet; Take 1 tablet (80 mg) by mouth daily. - Lipid panel; Future - TSH; Future - Lipid panel - TSH Lumbar degenerative disc disease Comments: Moderate severe, trial of meloxicam with back stretches Orders: - meloxicam (Mobic) 7.5 MG tablet; Take 1 tablet (7.5 mg) by mouth daily. Gastroesophageal reflux disease without esophagitis Comments: Stable on omeprazole Orders: - omeprazole (PriLOSEC) [address] capsule; Take 1 capsule (20 mg) by mouth daily. Do not crush or chew. NSAID long-term use Puncture wound History of CVA (cerebrovascular accident) Comments: Stable on aspirin, continue antihypertensive and lipid-lowering meds Depression, unspecified depression type First degree atrioventricular block Other orders - montelukast (Singulair) 10 MG tablet; Take 1 tablet (10 mg) by mouth Nightly. - Tdap vaccine greater than or equal to 7 years old IM - losartan (Cozaar) 25 MG tablet; Take 1 tablet (25 mg) by mouth daily. 40 Minutes spent on reviewing pertinent medical, surgical, family and social history, patient interview, physical exam, discussion of diagnosis, treatment and work-up options. Subjective: Patient ID: Sharron Torres is a 78 y.o. female. HPI hypertensive patient with history of pontine CVA 3 years ago presents for overall checkup. Has a few concerns. Developed some edema over the last 3 to 4 months but perhaps intermittent over the last year. Seem to occur with adding meloxicam daily for which she needs for her back and her neck. Has been on amlodipine for quite a while but is concerned about that contributing. History of remote left lower extremity DVT and PE as she presented with shortness of breath 7 yearsago. She denies pain in her thighs or legs. Taking aspirin once a day for CVA prophylaxis Review of Systems does not feel particularly ill. No recent earache sore throat or cough. No chest pain palpitations or dyspnea. No PND orthopnea. Using a mouthpiece for her sleep apnea. Intolerant of a mask. Will be seeing cardiology this fall. Has not seen neurology in a while. Generally she feels well without TIA symptoms. Rare heartburn on meloxicam. Takes omeprazole daily does cause some loose stools. She does have a small abrasion/puncture injury to her left forearm. She is due for Adacel vaccination. Also she has questions about her developing some depression symptoms. She is mulling over past events. Seems down and sad at times. Denies change in sleep or eating habits. Allergies Allergen Reactions Sulfamethoxazole Anaphylaxis Other reaction(s): Anaphylaxis Other reaction(s): Anaphylaxis Other reaction(s): Anaphylaxis Other reaction(s): Anaphylaxis Other reaction(s): Anaphylaxis Other reaction(s): Anaphylaxis Other reaction(s): Anaphylaxis Sulfamethoxazole-Trimethoprim Anaphylaxis Other reaction(s): Other (See Comments) headache Conjugated Estrogens Other Other reaction(s): Intolerance, Other htn Other reaction(s): Other htn Other reaction(s): Other htn Increased BP Estrogens Conjugated Other reaction(s): Other htn Other reaction(s): Other htn Indomethacin Other reaction(s): Vomiting, Vomiting Isosorbide Other reaction(s): Other, severe headache and vomitting Other reaction(s): Other, severe headache and vomitting Other reaction(s): Other, severe headache and vomitting Isosorbide Nitrate Other reaction(s): Other (See Comments) headache headache Levofloxacin Other reaction(s): Other (See Comments), Other bilateral tendonitis Other reaction(s): Other bilateral tendonitis Other reaction(s): Other bilateral tendonitis Other reaction(s): Other bilateral tendonitis Tendonitis in arms Levofloxacin In D5w Other reaction(s): Other (See Comments) tendonitisis Other Raloxifene Other reaction(s): Other (See Comments), Other- HTN Hot flashes & leg cramps Other reaction(s): Other- HTN Other reaction(s): Other- HTN Other reaction(s): Other- HTN Raloxifene Hcl increases intensity of hot flashes Solifenacin Other reaction(s): Other, Other: See Comments, Other: See Comments Other reaction(s): Other Other reaction(s): Other Other reaction(s): Other Other reaction(s): Other Trimethoprim Other reaction(s): Other, Other: See Comments, Other: See Comments Other reaction(s): Other Other reaction(s): Other Other reaction(s): Other Other reaction(s): Other Current Outpatient Medications on File Prior to Visit Medication Sig Dispense Refill acetaminophen (Tylenol 8 Hour) 650 MG ER tablet Take 650 mg by mouth every 8 hours as needed for mild pain (1-3). Do not crush, chew, or split. ammonium lactate (Amlactin) 12 % cream Apply topically. aspirin 81 MG EC tablet Take 81 mg by mouth. biotin 22117 MCG tablet Take by mouth. Cholecalciferol (D3 ADULT PO) Take 600 Units by mouth daily. Diclofenac Sodium (Voltaren) 1 % gel Apply 2 g topically 2 times daily. 150 g 2 pyridoxine (Vitamin B-6) 100 MG tablet Take 100 mg by mouth daily. [DISCONTINUED] amLODIPine (Norvasc) 5 MG tablet Take 1 tablet (5 mg) by mouth daily. 90 tablet 1 [DISCONTINUED] Arexvy 120 MCG/0.5ML reconstituted suspension Inject 0.5 mL into the shoulder, thigh, or buttocks Once. [DISCONTINUED] atorvastatin (Lipitor) 80 MG tablet Take 1 tablet (80 mg) by mouth daily. 90 tablet 1 [DISCONTINUED] meloxicam (Mobic) 7.5 MG tablet Take 1 tablet (7.5 mg) by mouth daily. 90 tablet 1 [DISCONTINUED] metoprolol tartrate (Lopressor) 50 MG tablet Take 1 tablet (50 mg) by mouth 2 times daily. 180 tablet 1 [DISCONTINUED] montelukast (Singulair) 10 MG tablet Take 1 tablet (10 mg) by mouth Nightly. 90 tablet 1 [DISCONTINUED] omeprazole (PriLOSEC) [address] capsule Take 1 capsule (20 mg) by mouth daily. Do notcrush or chew. 90 capsule 1 Ascorbic Acid (vitamin C) 1000 MG tablet Take 1,000 mg by mouth daily. omega-3 (Fish Oil) 1000 MG capsule Take 2,000 mg by mouth daily. 2,000 No current facility-administered medications on file prior to visit. Patient Active Problem List Diagnosis Hypertension Hypercholesterolemia Cervical spine pain Chronic bilateral low back pain without sciatica Gastroesophageal reflux disease without esophagitis Mild intermittent asthma without complication Pulmonary hypertension, unspecified (HCC) Lumbar degenerative disc disease Allergic rhinitis Cervical spine degeneration History of deep vein thrombosis NSAID long-term use Osteoporosis Sleep apnea History of squamous cell carcinoma of skin History of CVA (cerebrovascular accident) Depression Social History Tobacco Use Smoking status: Never Smokeless tobacco: Never Substance Use Topics Alcohol use: No Alcohol/week: 0.0 standard drinks of alcohol Past Surgical History: Procedure Laterality Date BUNIONECTOMY 2004 bilateral CARDIAC CATHETERIZATION 2014 No CAD - Has had 3 caths CATARACT EXTRACTION W/ INTRAOCULAR LENS IMPLANT, BILATERAL 2016 COLONOSCOPY 2018 COLONOSCOPY 01/2022 Dr Ponce- divert ds- ? need to rech ERCP 07/2021 Sphincterotomy and balloon sweep-choledocholithiasis TONSILLECTOMY AND ADENOIDECTOMY (HISTORICAL) UPPER GASTROINTESTINAL ENDOSCOPY 08/2020 Sobeida Arambula- Duodenal erosion. Family History Problem Relation Name Age of Onset Coronary artery disease Mother age 87 Stroke Mother hx of CABG High Blood Pressure Mother High Blood Pressure Father hx of CABG Heart disease Father age 66 Coronary artery disease Sister 4 MO - CABG Coronary artery disease Brother 2 CABG at age 40 Objective: BP 136/78 Pulse 64 Temp 37.2 C (98.9 F) (Temporal) Ht 5' 2 (1.575 m) Wt 170 lb (77.1 kg) SpO2 95% BMI 31.09 kg/m Physical Exam vital signs are stable. Alert and pleasant. No ENT findings. No thyroid masses JVD adenopathy or carotid bruits. Heart is regular without gallops or murmurs. Lungs are clear. Abdomen without pain hepatosplenomegaly masses or bruits. No ascites. Femoral and pedal pulses well. She has 2+ calf and pedal edema bilaterally. Nontender. No Homans. Pulses well. Small abrasion/puncture wound of the left forearm. No signs of infection. EKG showed sinus rhythm first-degree AV block documented in this [facility]03-10-2025 Instructions* Patient Instructions* Ramin Whitney DO - 07/25/2024 8:00 AM EDT BP check with 4 wks documented in this [facility]09-16-2024 History of Present illness Narrative* aRmin Whitney DO - 02/01/2024 7:00 AM EDT Images from the original note were not included. [facility] - [address] [facility] [address] Dept: [phone] Dept Chief Complaint: Sharron Torres is an 78 y.o. female here for an annual wellness visit. Assessment/Plan : Problem List Items Addressed This Visit Hypertension Relevant Medications amLODIPine (Norvasc) 5 MG tablet metoprolol tartrate (Lopressor) 50 MG tablet Hypercholesterolemia Relevant Medications atorvastatin (Lipitor) 80 MG tablet Other Relevant Orders Lipid panel Gastroesophageal reflux disease without esophagitis Relevant Medications omeprazole (PriLOSEC) [address] capsule Mild intermittent asthma without complication Lumbar degenerative disc disease Relevant Medications meloxicam (Mobic) 7.5 MG tablet Allergic rhinitis Other Visit Diagnoses Encounter for subsequent annual wellness visit (AWV) in Medicare patient - Primary I have reviewed and reconciled the medication list with the patient today. Current Outpatient Medications Medication Sig Dispense Refill acetaminophen (Tylenol 8 Hour) 650 MG ER tablet Take 650 mg by mouth every 8 hours as needed for mild pain (1-3). Do not crush, chew, or split. Ascorbic Acid (vitamin C) 1000 MG tablet Take 1,000 mg by mouth daily. aspirin 81 MG EC tablet Take 81 mg by mouth. biotin 06137 MCG tablet Take by mouth. Cholecalciferol (D3 ADULT PO) Take 1,000 Units by mouth daily. Diclofenac Sodium (Voltaren) 1 % gel Apply 2 g topically 2 times daily. 150 g 2 omega-3 (Fish Oil) 1000 MG capsule Take 1,200 mg by mouth daily. 2,000 pyridoxine (Vitamin B-6) 100 MG tablet Take 100 mg by mouth daily. amLODIPine (Norvasc) 5 MG tablet Take 1 tablet (5 mg) by mouth daily. 90 tablet 1 atorvastatin (Lipitor) 80 MG tablet Take 1 tablet (80 mg) by mouth daily. 90 tablet 1 meloxicam (Mobic) 7.5 MG tablet Take 1 tablet (7.5 mg) by mouth daily. 90 tablet 1 metoprolol tartrate (Lopressor) 50 MG tablet Take 1 tablet (50 mg) by mouth 2 times daily. 180 tablet 1 montelukast (Singulair) 10 MG tablet Take 1 tablet (10 mg) by mouth Nightly. 90 tablet 1 omeprazole (PriLOSEC) [address] capsule Take 1 capsule (20 mg) by mouth daily. Do not crush or chew.90 capsule 1 No current facility-administered medications for this visit. Also reviewed during this visit: Allergies Med Hx Surg Hx Fam Hx The following health maintenance schedule was reviewed with the patient and provided in printed form in the after visit summary: Health Maintenance Topic Date Due Bone Density Scan Never done DTaP/Tdap/Td Vaccines (1 - Tdap) Never done Hepatitis A Vaccines (1 of 2 - Risk 2-dose series) Never done RSV Immunization aged 60 or older (1 - 1-dose 60+ series) Never done Hepatitis B Vaccines (1 of 3 - Risk 3-dose series) Never done Medicare Annual Wellness (AWV) 09/12/2021 COVID-19 Vaccine (2022- season) 2024 Influenza Vaccine (1) 01/17/2024 Depression Screening 01/27/2025 Lipid Panel 08/27/2028 Pneumococcal Vaccine: 65+ Years Completed Zoster Vaccines Completed Hepatitis C Screening Completed RSV Immunization under 20 Months Aged Out HIB Vaccines Aged Out IPV Vaccines Aged Out Meningococcal Vaccine Aged Out Rotavirus Vaccines Aged Out HPV Vaccines Aged Out Colorectal Cancer Screening Discontinued List of current healthcare providers: Patient Care Team: Ramin Whitney DO as PCP - General (Family Medicine) Orders Placed This Encounter Procedures Flu vaccine (FLUAD), trivalent, adjuvanted, preservative-free (ages 65+/high dose) CBC auto differential Standing Status: Future Number of Occurrences: 1 Standing Expiration Date: 01/31/2025 Comprehensive metabolic panel Standing Status: Future Number of Occurrences: 1 Standing Expiration Date: 01/31/2025 Lipid panel Standing Status: Future Number of Occurrences: 1 Standing Expiration Date: 01/31/2025 Review of Systems overall patient doing well. No change in cardiac and pulmonary care. Past medical, past surgical, family social history reviewed and chart updated again. Has some leg edema with amlodipine. No changes recommended per cardiology. Was on Altace prior to her heart catheter perhaps amlodipine was added due to coronary spasm. Some bloated feeling the right upper quadrant but certainly nothing like she had when she had acutepancreatitis due to gallstones. No early satiety. No heartburn with meloxicam. No melena or blood. No bowel changes. She will think about seeing a major case detective. Physical Exam she appears well. Blood pressure stable. No JVD adenopathy or thyroid masses. Normal eardrums and oropharynx. Heart is regular gallops or murmurs or ectopy. Lungs are clear. Abdomen slightly obese without pain hepatosplenomegaly or masses. No bruits. Femoral pulses are fair. 1+ leg edema is evident. Objective : BP 128/60 (BP Location: Left arm, Patient Position: Sitting, BP Cuff Size: Adult long) Pulse 61 Temp 36.1 C (97 F) (Temporal) Ht 5' 2 (1.575 m) Wt 169 lb (76.7 kg) SpO2 97% BMI 30.91 kg/m No results found. Subjective : Health Risk Assessment: General: General In general, how would you say your health is?: Good In the past 7 days, have you experienced any of the following: New or Increased Pain, New or Increased Fatigue, Loneliness, Social Isolation, Stress or Anger?: No Do you get the social and emotional suppport you need?: Yes Health Habits/Nutrition: Health Habits / Nutrition On average, how many days per week do you engage in moderate to strenous exercise (like a brisk walk)?: 2 days On average, how man minutes do you engage in exercise at this level?: 10 min Have you lost any weight without trying in the past 3 months? : No Have you seen the dentist within the past year?: Yes Hearing/ Vision: Hearing / Vision Do you or your family notice any trouble with your hearing that hasn't been managed with hearing aids?: No Do you have difficulty driving, watching TV, or doing any of your daily activities because of your eyesight?: No Have you had an eye exam within the past year?: (!) No No results found. Interventions: Vision concerns: Eye exams up-to-date presently wearing hearing aids Safety: Safety Do you have a working smoke detector?: Yes Do you have any tripping hazards - loose or unsecured carpets or rugs?: (!) Yes Do you have any tripping hazards - clutter in doorways, halls, or stairs?: (!) Yes Do you have either shower bars, grab bars, non-slip mats or non-slip surfaces in your shower or bathtub? : Yes Do all your stairways have a railing or banister? : Yes Do you fasten your seatbelt when you are in a car?: Yes Interventions: Patient declines any further evaluation / treatment for this issue ADL: ADL In the past 7 days, did you need help from others to perform any of the following everyday activities: Eating, dressing, grooming,bathing, toileting, or walking / balance? : No In the past 7 days, did you need help from others to take care of any of the following: laundry, housekeeping, banking / finances,shopping, telephone use, food preparation, transportation, or taking medications? : No Living Will: Living Will Do you have a living will?: Yes Cognitive: Cognitive Screening: Mini-Cog Clock Drawing Test (CDT): 2 Words Recalled: 3 Total Score: 5 Total Score Interpretation: Normal Mini-Cog Fall Risk: Fall Risk One or more falls in the last year:: No Advised to use a cane or walker to get around safely:: No Feels unsteady when walking:: No Steadies self on furniture while walking at home:: No Worried about falling:: No Depression Screening: Over the past 2 weeks, how often have you been bothered by any of the following problems? Little interest or pleasure in doing things: Not at all Feeling down, depressed, or hopeless: Not at all Patient Health Questionnaire-2 Score: 0 Interventions: Patient declines any further evaluation / treatment for this issue Tobacco Use: Social History Tobacco Use Smoking Status Never Smokeless Tobacco Never Alcohol Use: Audit Alcohol Screening Q2: How many drinks containing alcohol do you have on a typical day when you are drinking?: Patientdoes not drink 1. Essential hypertension Stable, observe for more edema possibly change to RANDA inhibitor - amLODIPine (Norvasc) 5 MG tablet; Take 1 tablet (5 mg) by mouth daily. Dispense: 90 tablet; Refill: 1 - metoprolol tartrate (Lopressor) 50 MG tablet; Take 1 tablet (50 mg) by mouth 2 times daily. Dispense: 180 tablet; Refill: 1 - CBC auto differential; Future - Comprehensive metabolic panel; Future - CBC auto differential - Comprehensive metabolic panel 2. Hypercholesterolemia Stable, continue Lipitor - atorvastatin (Lipitor) 80 MG tablet; Take 1 tablet (80 mg) by mouth daily. Dispense: 90 tablet; Refill: 1 - Lipid panel; Future - Lipid panel 3. Gastroesophageal reflux disease without esophagitis Stable, continue omeprazole - omeprazole (PriLOSEC) [address] capsule; Take 1 capsule (20 mg) by mouth daily. Do not crush or chew. Dispense: 90 capsule; Refill: 1 4. Lumbar degenerative disc disease Stable, Tylenol as needed - meloxicam (Mobic) 7.5 MG tablet; Take 1 tablet (7.5 mg) by mouth daily. Dispense: 90 tablet; Refill: 1 5. Primary hypertension Stable, continue meds as is 6. Encounter for subsequent annual wellness visit (AWV) in Medicare patient 7. Mild intermittent asthma without complication Stable, off Wixela. Albuterol as needed 8. Seasonal allergic rhinitis due to pollen Stable, continue Singulair * Maira Melchor MA - 02/01/2024 7:00 AM EDT Visit orders confirmed with staff member Yes Questioned patient on any issues from previous vaccine Yes Any issues needing documentation N/A Patient tolerated the procedure well documented in this [facility]09-16-2024 Instructions* Patient Instructions* Ramin Whitney DO - 02/01/2024 7:00 AM EDT Personalized Preventative Plan for Sharron Torres - 02/01/2024 Medicare offers a range of preventative health benefits. Some of the tests and screenings are paid in full while others may be subject to a deductible, co- insurance, and / or copay. Some of these benefits include a comprehensive review of your medical history including lifestyle, illnesses that mayrun in your family, and various assessments and screenings as appropriate. After reviewing your medical record and screening and assessments performed today, your provider may have ordered immunizations, labs, imaging, and / or referrals for you. A list of these orders (if applicable) as well as your Preventative Care list are included within your After Visit Summary for your review. Other Preventative Recommendations: A preventive eye exam by an hris specialist is recommended every 1-2 years to screen for glaucoma, cataracts, macular degeneration, and other eye disorders. A preventive dental visit is recommended every 6 months. Try to get at least 150 minutes of exercise per week or 10,000 steps per day on a pedometer. You need 1200-1500mg of calcium and 5128-9093 international units of vitamin D per day. It is possible to meet your calcium requirement with diet alone, but a vitamin D supplement is usually necessary to meet this goal. When exposed to the sun, use a sunscreen that protects against both UVA and UVB radiation with an SPF of 30 or greater. Reapply every 2-3 hours or after sweating, drying off with a towel, or swimming. Always wear a seat belt when traveling in a car. Always wear a helmet when riding a bicycle or a motorcycle documented in this [facility]06-19-2024 Telephone encounter Note* Telephone Encounter - Meera Crouch MA - 11/04/2023 11:02 AM EDT Called and spoke with pharmacy. [facility] rx is needed. [id number] Miscellaneous Notes* Telephone Encounter - Meera Crouch MA - 11/04/2023 11:02 AM EDT Called and spoke with pharmacy. New rx is needed. * Telephone Encounter - Zeina Daley LPN - 11/04/2023 11:00 AM EDT Recent Visits Date Type Provider Dept 08/28/23 Office Visit Ramin Whitney DO [facility] 05/06/23 Office Visit Johnathan Da Silva PA-C [facility] Showing recent visits within past 365 days and meeting all other requirements Future Appointments No visits were found meeting these conditions. Showing future appointments within next 90 days and meeting all other requirements Requested Prescriptions Pending Prescriptions Disp Refills meloxicam (Mobic) 7.5 MG tablet 90 tablet 1 Sig: Take 1 tablet (7.5 mg) by mouth daily. Provider: Ramin Whitney DO Verified pharmacy: yes Verified day(s) supplied: yes Verified refill(s) needed (previous prescription showing no refills in chart): Yes Have you received any controlled medications from any other provider? No Overdue for visit: No If yes - patient scheduled? Yes Most recent labs completed in chart? Yes None documented in this [facility]06-19-2024 Telephone encounter Note* Telephone Encounter - Zeina Daley LPN - 11/04/2023 11:00 AM EDT Recent Visits Date Type Provider Dept 08/28/23 Office Visit Ramin Whitney DO [facility] 05/06/23 Office Visit Johnathan Da Silva PA-C [facility] Showing recent visits within past 365 days and meeting all other requirements Future Appointments No visits were found meeting these conditions. Showing future appointments within next 90 days and meeting all other requirements Requested Prescriptions Pending Prescriptions Disp Refills meloxicam (Mobic) 7.5 MG tablet 90 tablet 1 Sig: Take 1 tablet (7.5 mg) by mouth daily. Provider: Ramin Whitney DO Verified pharmacy: yes Verified day(s) supplied: yes Verified refill(s) needed (previous prescription showing no refills in chart): Yes Have you received any controlled medications from any other provider? No Overdue for visit: No If yes - patient scheduled? Yes Most recent labs completed in chart? Yes None [id number] History of Present illness Narrative* Ramin Whitney DO - 08/28/2023 8:30 AM EDT Images from the original note were not included. [facility] [address] [facility] [id number] Visit type: Established Patient Reason for Visit: Follow-up (Med check) Assessment / Plan: Sharron was seen today for follow-up. Diagnoses and all orders for this visit: Essential hypertension (Primary) Comments: Stable, continue metoprolol and amlodipine Orders: - CBC auto differential; Future - Comprehensive metabolic panel; Future - CBC auto differential - Comprehensive metabolic panel Hypercholesterolemia Comments: Stable, continue Lipitor Orders: - Lipid panel; Future - TSH; Future - Lipid panel - TSH Mild intermittent asthma without complication Comments: Stable, patient desires to stop Wixela and trial of Singulair. Call with update in 1 month Gastroesophageal reflux disease without esophagitis Lumbar degenerative disc disease Comments: Moderate severe, trial of meloxicam with back stretches Orders: - meloxicam (Mobic) 7.5 MG tablet; Take 1 tablet (7.5 mg) by mouth daily. Other orders - Fluticasone-Salmeterol (Wixela Inhub) 500-50 MCG/ACT aerosol powder ; Inhale 1 Inhalation. in themorning and 1 Inhalation. in the evening. - montelukast (Singulair) 10 MG tablet; Take 1 tablet (10 mg) by mouth Nightly. 30 Minutes spent on reviewing pertinent history, patient interview, physical exam, discussion of diagnosis and treatment and work-up options. Subjective: Patient ID: Sharron Torres is a 77 y.o. female. HPI hypertensive non-smoker with history of hyperlipidemia, asthma/coccus faecium and lumbar disc disease presents for first-time evaluation by myself. Past medical, surgical, family history and social history reviewed and chart updated appropriately. Most recently dealing with lumbar back pain. No sciatica. She would like to know the safety of meloxicam that was prescribed. She would like a cheaper alternate to help her bronchospasm and cough. Wixela is too expensive. Past pulmonary records reviewed Review of Systems denies recent earache sore throat headache or cough. No chest pain or palpitations. Some wheezing on occasion. She defers using Wixela. No purulent phlegm. No heartburn or dysphagia. History of acid reflux. No early satiety melena or blood. Bowels are regular. She believes she does not need any future colonoscopies. Lumbar pain is intermittent. No radiation to the legs feet or toes. No weakness noted. Allergies Allergen Reactions Sulfamethoxazole Anaphylaxis Other reaction(s): Anaphylaxis Other reaction(s): Anaphylaxis Other reaction(s): Anaphylaxis Other reaction(s): Anaphylaxis Other reaction(s): Anaphylaxis Other reaction(s): Anaphylaxis Other reaction(s): Anaphylaxis Sulfamethoxazole-Trimethoprim Anaphylaxis Other reaction(s): Other (See Comments) headache Conjugated Estrogens Other Other reaction(s): Intolerance, Other htn Other reaction(s): Other htn Other reaction(s): Other htn Increased BP Estrogens Conjugated Other reaction(s): Other htn Other reaction(s): Other htn Indomethacin Other reaction(s): Vomiting, Vomiting Isosorbide Other reaction(s): Other, severe headache and vomitting Other reaction(s): Other, severe headache and vomitting Other reaction(s): Other, severe headache and vomitting Isosorbide Nitrate Other reaction(s): Other (See Comments) headache headache Levofloxacin Other reaction(s): Other (See Comments), Other bilateral tendonitis Other reaction(s): Other bilateral tendonitis Other reaction(s): Other bilateral tendonitis Other reaction(s): Other bilateral tendonitis Tendonitis in arms Levofloxacin In D5w Other reaction(s): Other (See Comments) tendonitisis Other Raloxifene Other reaction(s): Other (See Comments), Other- HTN Hot flashes & leg cramps Other reaction(s): Other- HTN Other reaction(s): Other- HTN Other reaction(s): Other- HTN Raloxifene Hcl increases intensity of hot flashes Solifenacin Other reaction(s): Other, Other: See Comments, Other: See Comments Other reaction(s): Other Other reaction(s): Other Other reaction(s): Other Other reaction(s): Other Trimethoprim Other reaction(s): Other, Other: See Comments, Other: See Comments Other reaction(s): Other Other reaction(s): Other Other reaction(s): Other Other reaction(s): Other Current Outpatient Medications on File Prior to Visit Medication Sig Dispense Refill amLODIPine (Norvasc) 5 MG tablet Take 1 tablet (5 mg) by mouth daily. 90 tablet 1 Ascorbic Acid (vitamin C) 1000 MG tablet Take 1,000 mg by mouth daily. aspirin 81 MG EC tablet Take 81 mg by mouth. atorvastatin (Lipitor) 80 MG tablet Take 1 tablet (80 mg) by mouth daily. 90 tablet 1 Cholecalciferol (D3 ADULT PO) Take 1,000 Units by mouth daily. metoprolol tartrate (Lopressor) 50 MG tablet Take 1 tablet (50 mg) by mouth 2 times daily. 180 tablet 1 omega-3 (Fish Oil) 1000 MG capsule Take 1,200 mg by mouth daily. omeprazole (PriLOSEC) [address] capsule Take 1 capsule (20 mg) by mouth every morning (before breakfast). Do not crush or chew. 90 capsule 1 pyridoxine (Vitamin B-6) 100 MG tablet Take 100 mg by mouth daily. [DISCONTINUED] fluticasone (Flovent) 220 MCG/ACT inhaler Inhale 2 puffs in the morning and 2 puffs in the evening. Rinse mouth with water after use to reduce aftertaste and incidence of candidiasis. Do not swallow.. 12 g 5 Diclofenac Sodium (Voltaren) 1 % gel Apply 2 g topically 2 times daily. (Patient not taking: Reported on 05/06/2023) 150 g 2 [DISCONTINUED] magnesium oxide (Mag-200) 200 MG tablet Take 500 mg by mouth daily. [DISCONTINUED] meloxicam (Mobic) 7.5 MG tablet Take 1 tablet (7.5 mg) by mouth daily. (Patient not taking: Reported on 08/28/2023) 90 tablet 1 [DISCONTINUED] montelukast (Singulair) 10 MG tablet Take 1 tablet (10 mg) by mouth Nightly. (Patient not taking: Reported on 08/28/2023) 90 tablet 1 No current facility-administered medications on file prior to visit. Patient Active Problem List Diagnosis Essential hypertension Hypercholesterolemia Cervical spine pain Chronic bilateral low back pain without sciatica Gastroesophageal reflux disease without esophagitis Mild intermittent asthma without complication Pulmonary hypertension, unspecified (HCC) Lumbar degenerative disc disease Social History Tobacco Use Smoking status: Never Smokeless tobacco: Never Substance Use Topics Alcohol use: No Alcohol/week: 0.0 standard drinks of alcohol Past Surgical History: Procedure Laterality Date BUNIONECTOMY 2004 bilateral CARDIAC CATHETERIZATION 2014 No CAD - Has had 3 CATARACT EXTRACTION W/ INTRAOCULAR LENS IMPLANT, BILATERAL 2016 COLONOSCOPY 2018 COLONOSCOPY 01/2022 Dr Ponce- divert ds- ? need to rech ERCP 07/2021 Sphincterotomy and balloon sweep TONSILLECTOMY AND ADENOIDECTOMY (HISTORICAL) UPPER GASTROINTESTINAL ENDOSCOPY 08/2020 Dr. Abdi, Sobeida- Duodenal erosion. Family History Problem Relation Name Age of Onset Coronary artery disease Mother age 87 Stroke Mother hx of CABG High Blood Pressure Mother High Blood Pressure Father hx of CABG Heart disease Father age 66 Coronary artery disease Sister 4 MO - CABG Coronary artery disease Brother 2 CABG at age 40 Objective: BP 136/64 Pulse 68 Temp 36.1 C (97 F) (Temporal) Ht 5' 2 (1.575 m) Wt 173 lb (78.5 kg) SpO2 95% BMI 31.64 kg/m Physical Exam The physical exam is generally normal. Patient appears well, alert and oriented x 3, pleasant, cooperative. Vitals are as noted. No carotid bruits. Neck supple, no abnormal adenopathy, thyroid lesions or masses. Ears, nose and throat are normal without acute findings. Lungs have some upper rhonchi that clear with cough. No overt wheezing rales or egophony. Heart is regular, without murmurs, gallops or ectopy. Abdomen is soft, non tender, without masses, hepatosplenomegaly, or bruits. Normal BS evident. Extremities are normal without edema. Peripheral pulses are fair. No worrisome skin lesions. Screening neurological exam is normal without focal deficits. Diminished range of motion of her lumbar spine. Negative straight leg raising bilaterally. Fair hiprange of motion. Reflexes are preserved. There is no motor or sensory loss of the legs feet or toesreviewed recent x-rays from December. Reviewed past MRI head and echocardiogram from 2021 documented in this [facility]12-20-2023 Evaluation + Plan note* Assessment & Plan Note - Johnathan Da Silva PA-C - 05/06/2023 9:02 AM ESTAssociated Problem(s): Chronic bilateral low back pain without sciatica - Chronic and unstable patient sleeps in a recliner because of the persistent pain agreeable to trya short course of meloxicam to see if it helps with symptoms. [id number] Miscellaneous Notes* Assessment & Plan Note - Johnathan Da Silva PA-C - 05/06/2023 9:02 AM ESTAssociated Problem(s): Chronic bilateral low back pain without sciatica - Chronic and unstable patient sleeps in a recliner because of the persistent pain agreeable to trya short course of meloxicam to see if it helps with symptoms. * Assessment & Plan Note - Johnathan Da Silva PA-C - 05/06/2023 9:01 AM ESTAssociated Problem(s): Mild intermittent asthma without complication - Chronic and unstable difficult time affording medication we will switch her from Advair to just Flovent and Singulair in the evening. - Based on cost of medication Breo is covered we will consider Breo in the future if her symptoms are persistent or worsening. * Assessment & Plan Note - Johnathan Da Silva PA-C - 05/06/2023 9:01 AM ESTAssociated Problem(s): Hypercholesterolemia - Chronic stable continue Lipitor 80 mg daily. No reported current myalgias. * Assessment & Plan Note - Johnathan Da Silva PA-C - 05/06/2023 9:01 AM ESTAssociated Problem(s): Gastroesophageal reflux disease without esophagitis - Chronic stable we will continue omeprazole 20 mg daily. * Assessment & Plan Note - Johnathan Da Silva PA-C - 05/06/2023 9:00 AM ESTAssociated Problem(s): Essential hypertension - Chronic stable we will continue on Norvasc 5 mg daily, metoprolol 50 mg twice a day. documented in this [facility]12-20-2023 Evaluation + Plan note* Assessment & Plan Note - Johnathan Da Silva PA-C - 05/06/2023 9:01 AM ESTAssociated Problem(s): Mild intermittent asthma without complication - Chronic and unstable difficult time affording medication we will switch her from Advair to just Flovent and Singulair in the evening. - Based on cost of medication Francisca is covered we will consider Breo in the future if her symptoms are persistent or worsening. [id number] Evaluation + Plan note* Assessment & Plan Note - Johnathan Da Silva PA-C - 05/06/2023 9:01 AM ESTAssociated Problem(s): Hypercholesterolemia - Chronic stable continue Lipitor 80 mg daily. No reported current myalgias. [id number] Evaluation + Plan note* Assessment & Plan Note - Johnathan Da Silva PA-C - 05/06/2023 9:01 AM ESTAssociated Problem(s): Gastroesophageal reflux disease without esophagitis - Chronic stable we will continue omeprazole 20 mg daily. [place] [id number] Evaluation + Plan note* Assessment & Plan Note - Johnathan Da Silva PA-C - 05/06/2023 9:00 AM ESTAssociated Problem(s): Essential hypertension - Chronic stable we will continue on Norvasc 5 mg daily, metoprolol 50 mg twice a day. [id number] History of Present illness Narrative* Jhonathan Da Silva PA-C - 05/06/2023 7:40 AM EST Images from the original note were not included. [facility] [address] [facility] [id number] Dept: [phone] Dept Loc: [phone] Visit type: Established Patient Reason for Visit: Follow-up (Med check ) Assessment and Plan 1. Mild intermittent asthma without complication Assessment & Plan: - Chronic and unstable difficult time affording medication we will switch her from Advair to just Flovent and Singulair in the evening. - Based on cost of medication Breo is covered we will consider Breo in the future if her symptoms are persistent or worsening. Orders: - fluticasone (Flovent) 220 MCG/ACT inhaler; Inhale 2 puffs in the morning and 2 puffs in the evening. Rinse mouth with water after use to reduce aftertaste and incidence of candidiasis. Do not swallow.., Starting 05/06/2023, Until Charlette 05/05/2024, Normal - montelukast (Singulair) 10 MG tablet; Take 1 tablet (10 mg) by mouth Nightly., Starting Thu05/06/2023, Until Thu11/02/2023, Normal 2. Essential hypertension Assessment & Plan: - Chronic stable we will continue on Norvasc 5 mg daily, metoprolol 50 mg twice a day. Orders: - amLODIPine (Norvasc) 5 MG tablet; Take 1 tablet (5 mg) by mouth daily., Starting Thu05/06/2023, Normal - metoprolol tartrate (Lopressor) 50 MG tablet; Take 1 tablet (50 mg) by mouth 2 times daily., Starting Thu05/06/2023, Normal - Comprehensive metabolic panel 3. Hypercholesterolemia Assessment & Plan: - Chronic stable continue Lipitor 80 mg daily. No reported current myalgias. Orders: - atorvastatin (Lipitor) 80 MG tablet; Take 1 tablet (80 mg) by mouth daily., Starting Thu05/06/2023, Normal - Comprehensive metabolic panel 4. Gastroesophageal reflux disease without esophagitis Assessment & Plan: - Chronic stable we will continue omeprazole 20 mg daily. Orders: - omeprazole (PriLOSEC) [address] capsule; Take 1 capsule (20 mg) by mouth every morning (before breakfast). Do not crush or chew., Starting Thu05/06/2023, Normal 5. Chronic bilateral low back pain without sciatica Assessment & Plan: - Chronic and unstable patient sleeps in a recliner because of the persistent pain agreeable to trya short course of meloxicam to see if it helps with symptoms. Orders: - meloxicam (Mobic) 7.5 MG tablet; Take 1 tablet (7.5 mg) by mouth daily., Starting Thu05/06/2023,Until Thu11/02/2023, Normal Follow up in about 4 months (around 09/05/2023), or must see PCP!. Subjective HPI this is a 77-year-old female with an underlying history of remote PE not currently anticoagulated, hypertension, GERD and hyperlipidemia who presents back to the office for 4-month checkup and evaluation. Patient was on Eliquis in the past but did not require long-term anticoagulation she was seen in the office 4 months ago for back pain with sciatica. X-ray was obtained which did confirm loss of height desiccation of the disc space and osteophyte formation. Multiple concerns today, Ongoing issues with SOB and fatigue, will consider breo, will switch from Advair to Flovent and Singulair as the patient reports her inhaler cost her about $400 a month. Saw cardiology and pulmonology recently, and discussed with pulm to determine use oral appliance but not like supposed to, but doesn't like it and feels like up and down all night. Patient encouragedto use CPAP as tolerated per pulmonology. Up at night at 3 times. Sleeps recliner due to ongoing back pain issues Ongoing pain issues interfering with quality of life. We did discuss ongoing back issues her x-ray was negative she is agreeable to try a short course of meloxicam. Review of Systems Constitutional: Negative for chills and fever. HENT: Negative for congestion and sore throat. Respiratory: Negative for cough and shortness of breath. Cardiovascular: Positive for leg swelling (periodic). Negative for chest pain. Gastrointestinal: Negative for abdominal pain, diarrhea, nausea and vomiting. Genitourinary: Positive for frequency and urgency. Negative for difficulty urinating and dysuria. Musculoskeletal: Positive for back pain. Negative for myalgias, neck pain and neck stiffness. Neurological: Negative for dizziness and light-headedness. Psychiatric/Behavioral: Positive for sleep disturbance (up several times urinate and waking with sleep apnea). All other systems reviewed and are negative. Allergies Allergen Reactions Sulfamethoxazole Anaphylaxis Other reaction(s): Anaphylaxis Other reaction(s): Anaphylaxis Other reaction(s): Anaphylaxis Other reaction(s): Anaphylaxis Other reaction(s): Anaphylaxis Other reaction(s): Anaphylaxis Other reaction(s): Anaphylaxis Sulfamethoxazole-Trimethoprim Anaphylaxis Other reaction(s): Other (See Comments) headache Conjugated Estrogens Other Other reaction(s): Intolerance, Other htn Other reaction(s): Other htn Other reaction(s): Other htn Increased BP Estrogens Conjugated Other reaction(s): Other htn Other reaction(s): Other htn Indomethacin Other reaction(s): Vomiting, Vomiting Isosorbide Other reaction(s): Other, severe headache and vomitting Other reaction(s): Other, severe headache and vomitting Other reaction(s): Other, severe headache and vomitting Isosorbide Nitrate Other reaction(s): Other (See Comments) headache headache Levofloxacin Other reaction(s): Other (See Comments), Other bilateral tendonitis Other reaction(s): Other bilateral tendonitis Other reaction(s): Other bilateral tendonitis Other reaction(s): Other bilateral tendonitis Tendonitis in arms Levofloxacin In D5w Other reaction(s): Other (See Comments) tendonitisis Other Raloxifene Other reaction(s): Other (See Comments), Other- HTN Hot flashes & leg cramps Other reaction(s): Other- HTN Other reaction(s): Other- HTN Other reaction(s): Other- HTN Raloxifene Hcl increases intensity of hot flashes Solifenacin Other reaction(s): Other, Other: See Comments, Other: See Comments Other reaction(s): Other Other reaction(s): Other Other reaction(s): Other Other reaction(s): Other Trimethoprim Other reaction(s): Other, Other: See Comments, Other: See Comments Other reaction(s): Other Other reaction(s): Other Other reaction(s): Other Other reaction(s): Other Outpatient Medications Prior to Visit Medication Sig Dispense Refill Ascorbic Acid (vitamin C) 1000 MG tablet Take 1,000 mg by mouth daily. aspirin 81 MG EC tablet Take 81 mg by mouth. Cholecalciferol (D3 ADULT PO) Take 1,000 Units by mouth daily. magnesium oxide (Mag-200) 200 MG tablet Take 500 mg by mouth daily. omega-3 (Fish Oil) 1000 MG capsule Take 1,200 mg by mouth daily. pyridoxine (Vitamin B-6) 100 MG tablet Take 100 mg by mouth daily. amLODIPine (Norvasc) 5 MG tablet Take 1 tablet (5 mg) by mouth daily. 90 tablet 1 atorvastatin (Lipitor) 80 MG tablet Take 1 tablet (80 mg) by mouth daily. 90 tablet 1 Fluticasone-Salmeterol 500-50 MCG/ACT aerosol powder USE 1 INHALATION DAILY metoprolol tartrate (Lopressor) 50 MG tablet Take 1 tablet (50 mg) by mouth 2 times daily. 180 tablet 1 omeprazole (PriLOSEC) [address] capsule Take 1 capsule (20 mg) by mouth every morning (before breakfast). Do not crush or chew. 90 capsule 1 Diclofenac Sodium (Voltaren) 1 % gel Apply 2 g topically 2 times daily. (Patient not taking: Reported on 05/06/2023) 150 g 2 ferrous fumarate-vitamin C ER (Yves-Sequeles 65-25) Take 1 tablet by mouth in the morning and 1 tablet at noon and 1 tablet in the evening. Take with meals. Do not crush, chew, or split. . No facility-administered medications prior to visit. Past Medical History: Diagnosis Date Allergic rhinitis Asthma Hepatitis B History of deep vein thrombosis Left leg March 2018 Hypercholesterolemia Hypertension Osteoporosis Sleep apnea 2018 Social History Tobacco Use Smoking status: Never Smokeless tobacco: Never Substance Use Topics Alcohol use: No Alcohol/week: 0.0 standard drinks of alcohol Past Surgical History: Procedure Laterality Date BUNIONECTOMY 2005 bilateral CARDIAC CATHETERIZATION 2014 CARDIAC CATHETERIZATION 05/2014 No CAD - Has had 3 COLONOSCOPY 07/06/2017 Normal. Repeat 10 years COLONOSCOPY 02/05/2022 Diverticulosis. Suggested repeat colonoscopy 5 years ERCP 08/12/2021 Sphincterotomy and balloon sweep EYE SURGERY 2016 Bilateral cataracts TONSILLECTOMY AND ADENOIDECTOMY (HISTORICAL) UPPER GASTROINTESTINAL ENDOSCOPY 09/12/2020 Duodenal erosion. Family History Problem Relation Name Age of Onset High Blood Pressure Father 66yrs Heart disease Mother 87yrs Coronary artery disease Mother 87yrs Other ([id number]) Mother 87yrs No MO - sudden Heart disease Sister MO - CABG Coronary artery disease Brother CABG at age 40 High Blood Pressure Mother 87yrs Heart disease Father 66yrs Objective BP 119/58 (BP Location: Right arm, Patient Position: Sitting, BP Cuff Size: Large adult) Pulse 61 Temp 36.3 C (97.3 F) (Temporal) Ht 5' 2 (1.575 m) Wt 174 lb (78.9 kg) SpO2 97% BMI 31.83kg/m Physical Exam Vitals reviewed. Constitutional: General: She is not in acute distress. Appearance: Normal appearance. She is not ill-appearing or toxic-appearing. HENT: Right Ear: Tympanic membrane and ear canal normal. Left Ear: Tympanic membrane and ear canal normal. Mouth/Throat: Mouth: Mucous membranes are moist. Pharynx: No oropharyngeal exudate or posterior oropharyngeal erythema. Eyes: General: No scleral icterus. Conjunctiva/sclera: Conjunctivae normal. Pupils: Pupils are equal, round, and reactive to light. Neck: Vascular: No carotid bruit. Cardiovascular: Rate and Rhythm: Normal rate and regular rhythm. Heart sounds: Normal heart sounds. No murmur heard. Pulmonary: Effort: Pulmonary effort is normal. No respiratory distress. Breath sounds: Normal breath sounds. No wheezing or rales. Abdominal: General: Bowel sounds are normal. There is no distension. Palpations: Abdomen is soft. Tenderness: There is no abdominal tenderness. There is no guarding. Musculoskeletal: Cervical back: Normal range of motion and neck supple. No rigidity or tenderness. Right lower leg: No edema. Left lower leg: No edema. Lymphadenopathy: Cervical: No cervical adenopathy. Skin: General: Skin is warm and dry. Neurological: Mental Status: She is alert. Psychiatric: Mood and Affect: Mood normal. Data Reviewed and Summarized Labs: Imaging/Testing: Johnathan Da Silva PA-C 05/06/2023 Please note that portions of this note may have been completed with voice recognition software. Documentation reviewed prior to signing but minor errors in salad bar clerk may have occurred. documented in this [facility]08-14-2023 Evaluation + Plan note* Assessment & Plan Note - Johnathan Da Silva PA-C - 12/29/2022 10:41 AM EDT Associated Problem(s): Hypercholesterolemia -chronic and stable and will continue lipitor 80mg daily, and pt will continue to follow up with cardiology [id number] Miscellaneous Notes* Assessment & Plan Note - Johnathan Da Silva PA-C - 12/29/2022 10:41 AM EDTAssociated Problem(s): Hypercholesterolemia -chronic and stable and will continue lipitor 80mg daily, and pt will continue to follow up with cardiology annually * Assessment & Plan Note - Johnathan Da Silva PA-C - 12/29/2022 10:40 AM EDT Associated Problem(s): Chronic bilateral low back pain without sciatica -chronic and unstable, will obtain current image and try tylenol arthritis bid dosing and voltaren gel and continue to monitor LFTs. * Assessment & Plan Note - Johnathan Da Silva PA-C - 12/29/2022 10:40 AM EDT Associated Problem(s): Gastroesophageal reflux disease without esophagitis -stable chronic well controlled on omeprazole 20mg daily * Assessment & Plan Note - Johnathan Da Silva PA-C - 12/29/2022 10:39 AM EDT Associated Problem(s): Essential hypertension - chronic and stable well controlled on norvasc 5mg daily, metoprolol 50mg bid documented in this [facility]08-14-2023 Evaluation + Plan note* Assessment & Plan Note - Johnathan Da Silva PA-C - 12/29/2022 10:40 AM EDT Associated Problem(s): Chronic bilateral low back pain without sciatica -chronic and unstable, will obtain current image and try tylenol arthritis bid dosing and voltaren gel and continue to monitor LFTs. [id number] Evaluation + Plan note* Assessment & Plan Note - Johnathan Da Silva PA-C - 12/29/2022 10:40 AM EDTAssociated Problem(s): Gastroesophageal reflux disease without esophagitis -stable chronic well controlled on omeprazole 20mg daily [id number] Evaluation + Plan note* Assessment & Plan Note - Johnathan Da Silva PA-C - 12/29/2022 10:39 AM EDTAssociated Problem(s): Essential hypertension - chronic and stable well controlled on norvasc 5mg daily, metoprolol 50mg bid [id number] History of Present illness Narrative* Johnathan Da Silva PA-C - 12/29/2022 10:20 AM EDT Images from the original note were not included. [facility] [address] [facility] [id number] Dept: [phone] Dept Loc: [phone] Visit type: Established Patient Reason for Visit: Follow-up (6 month) Assessment and Plan 1. Chronic bilateral low back pain without sciatica Assessment & Plan: -chronic and unstable, will obtain current image and try tylenol arthritis bid dosing and voltaren gel and continue to monitor LFTs. Orders: - acetaminophen (Tylenol 8 Hour Arthritis Pain) 650 MG ER tablet; Take 1 tablet (650 mg) by mouth 2times daily. Do not crush, chew, or split., Starting Thu12/29/2022, Until 03/29/2023, Normal - Diclofenac Sodium (Voltaren) 1 % gel; Apply 2 g topically 2 times daily., Starting Thu12/29/2022,Normal - XR lumbar spine 2 or 3 views 2. Essential hypertension Assessment & Plan: - chronic and stable well controlled on norvasc 5mg daily, metoprolol 50mg bid Orders: - Comprehensive metabolic panel - amLODIPine (Norvasc) 5 MG tablet; Take 1 tablet (5 mg) by mouth daily., Starting Thu12/29/2022, Normal - metoprolol tartrate (Lopressor) 50 MG tablet; Take 1 tablet (50 mg) by mouth 2 times daily., Starting Thu12/29/2022, Normal 3. Hypercholesterolemia Assessment & Plan: -chronic and stable and will continue lipitor 80mg daily, and pt will continue to follow up with cardiology annually Orders: - Comprehensive metabolic panel - atorvastatin (Lipitor) 80 MG tablet; Take 1 tablet (80 mg) by mouth daily., Starting Thu12/29/2022, Normal 4. Gastroesophageal reflux disease without esophagitis Assessment & Plan: -stable chronic well controlled on omeprazole 20mg daily Orders: - omeprazole (PriLOSEC) [address] capsule; Take 1 capsule (20 mg) by mouth every morning (before breakfast). Do not crush or chew., Starting 12/29/2022, Normal Follow up in about 4 months (around 04/30/2023). Subjective HPI this is a 77-year-old female presents to the office for med check and evaluation she does have an underlying history of asthma hypertension, GERD hyperlipidemia, and a previous history of pulmonary embolism however is not currently anticoagulated was on eliquis but not needed buttermaker, but continues to stay on baby aspirin. With her history a CMP was obtained in June was normal. Concerned with increasing trips to bathroom, worsening back pain, primarily in the lower back. Things feel better when sit down but worse up and moving. Not taking any medicines for the back pain. Continues to have shortness of breath but follows up with pulmonology and has history of sleep apnea. And continues to see cardiology, seen in September and no changes required at this time. Review of Systems Constitutional: Negative for chills and fever. HENT: Negative for congestion and sore throat. Respiratory: Positive for shortness of breath. Negative for cough. Cardiovascular: Negative for chest pain. Gastrointestinal: Negative for abdominal pain, diarrhea, nausea and vomiting. Genitourinary: Positive for frequency. Negative for difficulty urinating, dysuria and urgency. Musculoskeletal: Positive for back pain and neck pain. Neurological: Negative for dizziness and light-headedness. All other systems reviewed and are negative. Allergies Allergen Reactions Sulfamethoxazole Anaphylaxis Other reaction(s): Anaphylaxis Other reaction(s): Anaphylaxis Other reaction(s): Anaphylaxis Other reaction(s): Anaphylaxis Other reaction(s): Anaphylaxis Other reaction(s): Anaphylaxis Other reaction(s): Anaphylaxis Sulfamethoxazole-Trimethoprim Anaphylaxis Other reaction(s): Other (See Comments) headache Conjugated Estrogens Other Other reaction(s): Intolerance, Other htn Other reaction(s): Other htn Other reaction(s): Other htn Increased BP Estrogens Conjugated Other reaction(s): Other htn Other reaction(s): Other htn Indomethacin Other reaction(s): Vomiting, Vomiting Isosorbide Other reaction(s): Other, severe headache and vomitting Other reaction(s): Other, severe headache and vomitting Other reaction(s): Other, severe headache and vomitting Isosorbide Nitrate Other reaction(s): Other (See Comments) headache headache Levofloxacin Other reaction(s): Other (See Comments), Other bilateral tendonitis Other reaction(s): Other bilateral tendonitis Other reaction(s): Other bilateral tendonitis Other reaction(s): Other bilateral tendonitis Tendonitis in arms Levofloxacin In D5w Other reaction(s): Other (See Comments) tendonitisis Other Raloxifene Other reaction(s): Other (See Comments), Other- HTN Hot flashes & leg cramps Other reaction(s): Other- HTN Other reaction(s): Other- HTN Other reaction(s): Other- HTN Raloxifene Hcl increases intensity of hot flashes Solifenacin Other reaction(s): Other, Other: See Comments, Other: See Comments Other reaction(s): Other Other reaction(s): Other Other reaction(s): Other Other reaction(s): Other Trimethoprim Other reaction(s): Other, Other: See Comments, Other: See Comments Other reaction(s): Other Other reaction(s): Other Other reaction(s): Other Other reaction(s): Other Outpatient Medications Prior to Visit Medication Sig Dispense Refill Ascorbic Acid (vitamin C) 1000 MG tablet Take 1,000 mg by mouth daily. aspirin 81 MG EC tablet Take 81 mg by mouth. Cholecalciferol (D3 ADULT PO) Take 600 Units by mouth daily. ferrous fumarate-vitamin C ER (Yves-Sequeles 65-25) Take 1 tablet by mouth in the morning and 1 tablet at noon and 1 tablet in the evening. Take with meals. Do not crush, chew, or split. . Fluticasone-Salmeterol 500-50 MCG/ACT aerosol powder USE 1 INHALATION DAILY magnesium oxide (Mag-200) 200 MG tablet Take 250 mg by mouth daily. omega-3 (Fish Oil) 1000 MG capsule Take by mouth. pyridoxine (Vitamin B-6) 100 MG tablet Take 100 mg by mouth daily. amLODIPine (Norvasc) 5 MG tablet Take 1 tablet (5 mg) by mouth daily. 90 tablet 1 atorvastatin (Lipitor) 80 MG tablet Take 1 tablet (80 mg) by mouth daily. 90 tablet 1 metoprolol tartrate (Lopressor) 50 MG tablet Take 1 tablet (50 mg) by mouth 2 times daily. 180 tablet 1 omeprazole (PriLOSEC) [address] capsule Take 1 capsule (20 mg) by mouth every morning (before breakfast). Do not crush or chew. 90 capsule 1 No facility-administered medications prior to visit. Past Medical History: Diagnosis Date Allergic rhinitis Asthma Hepatitis B History of deep vein thrombosis Left leg March 2018 Hypercholesterolemia Hypertension Osteoporosis Sleep apnea 2018 Social History Tobacco Use Smoking status: Never Smokeless tobacco: Never Substance Use Topics Alcohol use: No Alcohol/week: 0.0 standard drinks of alcohol Past Surgical History: Procedure Laterality Date BUNIONECTOMY 2005 bilateral CARDIAC CATHETERIZATION 2014 CARDIAC CATHETERIZATION 05/2014 No CAD - Has had 3 COLONOSCOPY 07/06/2017 Normal. Repeat 10 years COLONOSCOPY 02/05/2022 Diverticulosis. Suggested repeat colonoscopy 5 years ERCP 08/12/2021 Sphincterotomy and balloon sweep EYE SURGERY 2016 Bilateral cataracts TONSILLECTOMY AND ADENOIDECTOMY (HISTORICAL) UPPER GASTROINTESTINAL ENDOSCOPY 09/12/2020 Duodenal erosion. Family History Problem Relation Name Age of Onset High Blood Pressure Father 66yrs Heart disease Mother 87yrs Coronary artery disease Mother 87yrs Other ([id number]) Mother 87yrs No MO - sudden Heart disease Sister MO - CABG Coronary artery disease Brother CABG at age 40 High Blood Pressure Mother 87yrs Heart disease Father 66yrs Objective BP 118/65 (BP Location: Left arm, Patient Position: Sitting, BP Cuff Size: Large adult) Pulse 58 Temp 36.2 C (97.1 F) (Temporal) Ht 5' 2 (1.575 m) Wt 173 lb (78.5 kg) SpO2 96% BMI 31.64 kg/m Physical Exam Vitals reviewed. Constitutional: General: She is not in acute distress. Appearance: Normal appearance. She is not ill-appearing or toxic-appearing. Eyes: General: No scleral icterus. Conjunctiva/sclera: Conjunctivae normal. Pupils: Pupils are equal, round, and reactive to light. Neck: Vascular: No carotid bruit. Cardiovascular: Rate and Rhythm: Normal rate and regular rhythm. Heart sounds: Normal heart sounds. No murmur heard. Pulmonary: Effort: Pulmonary effort is normal. No respiratory distress. Breath sounds: Normal breath sounds. No stridor. No wheezing or rales. Abdominal: General: Bowel sounds are normal. There is no distension. Palpations: Abdomen is soft. Tenderness: There is no abdominal tenderness. There is no guarding. Musculoskeletal: Cervical back: Normal range of motion and neck supple. No rigidity. Right lower leg: No edema. Left lower leg: No edema. Comments: Tenderness in low back paraspinal region, no crepitus step off or deformity felt Lymphadenopathy: Cervical: No cervical adenopathy. Skin: General: Skin is warm and dry. Neurological: Mental Status: She is alert. Psychiatric: Mood and Affect: Mood normal. Data Reviewed and Summarized Labs: Imaging/Testing: Johnathan Da Silva PA-C 12/29/2022 Please note that portions of this note may have been completed with voice recognition software. Documentation reviewed prior to signing but minor errors in salad bar clerk may have occurred. documented in this [facility]02-13-2023 History of Present illness Narrative* Chevy Matthew, DO - 06/30/2022 10:10 AM EST Subjective: Patient ID: Sharron Torres is a 76 y.o. female. 76-year-old female with a history of hypertension, hypercholesterolemia, asthma and GERD presents to the office for checkup. Review of Systems Constitutional: Negative for activity change, appetite change, fatigue, fever and unexpected weightchange. Eyes: Negative for visual disturbance. Respiratory: Positive for shortness of breath. Negative for chest tightness. History of sleep apnea. She was diagnosed in 2018. Cannot tolerate the mask. Her ip architect office has set her up for a home sleep study for this coming Thursday. Patient feels that her asthma has been stable. Cardiovascular: Negative for chest pain and palpitations. Gastrointestinal: Negative for abdominal pain, blood in stool, constipation and diarrhea. Possibly once per month will have loose stool. GERD symptoms controlled with omeprazole Endocrine: Negative for polydipsia and polyuria. Genitourinary: Negative for difficulty urinating and frequency. Musculoskeletal: Positive for neck pain (Left neck pain for about 1 week. No weakness or numbness upper extremities). Negative for arthralgias. Skin: Negative for rash. Neurological: Negative for headaches. Psychiatric/Behavioral: Negative for dysphoric mood. The patient is not nervous/anxious. Objective: Physical Exam Neck: Thyroid: No thyromegaly. Vascular: No carotid bruit. Comments: Neck with tenderness left mid posterior. Decreased both sidebending and rotation to the left. Cardiovascular: Rate and Rhythm: Normal rate and regular rhythm. Heart sounds: No murmur heard. Pulmonary: Breath sounds: Normal breath sounds. Abdominal: Palpations: There is no mass. Tenderness: There is no abdominal tenderness. Musculoskeletal: Right lower leg: No edema. Left lower leg: No edema. Comments: Pulses present both feet. Lymphadenopathy: Cervical: No cervical adenopathy. Skin: Findings: No rash. Neurological: Mental Status: She is alert. Comments: Hand grasp equal. No weakness either arm. No weakness of shoulder abduction BP 135/75 Pulse 60 Temp 36.4 C (97.5 F) (Temporal) Ht 5' 2 (1.575 m) Wt 176 lb (79.8 kg) SpO2 95% BMI 32.19 kg/m Allergies Allergen Reactions Sulfamethoxazole Anaphylaxis Other reaction(s): Anaphylaxis Other reaction(s): Anaphylaxis Other reaction(s): Anaphylaxis Other reaction(s): Anaphylaxis Other reaction(s): Anaphylaxis Other reaction(s): Anaphylaxis Other reaction(s): Anaphylaxis Sulfamethoxazole-Trimethoprim Anaphylaxis Other reaction(s): Other (See Comments) headache Conjugated Estrogens Other Other reaction(s): Intolerance, Other htn Other reaction(s): Other htn Other reaction(s): Other htn Increased BP Estrogens Conjugated Other reaction(s): Other htn Other reaction(s): Other htn Indomethacin Other reaction(s): Vomiting, Vomiting Isosorbide Other reaction(s): Other, severe headache and vomitting Other reaction(s): Other, severe headache and vomitting Other reaction(s): Other, severe headache and vomitting Isosorbide Nitrate Other reaction(s): Other (See Comments) headache headache Levofloxacin Other reaction(s): Other (See Comments), Other bilateral tendonitis Other reaction(s): Other bilateral tendonitis Other reaction(s): Other bilateral tendonitis Other reaction(s): Other bilateral tendonitis Tendonitis in arms Levofloxacin In D5w Other reaction(s): Other (See Comments) tendonitisis Other Raloxifene Other reaction(s): Other (See Comments), Other- HTN Hot flashes & leg cramps Other reaction(s): Other- HTN Other reaction(s): Other- HTN Other reaction(s): Other- HTN Raloxifene Hcl increases intensity of hot flashes Solifenacin Other reaction(s): Other, Other: See Comments, Other: See Comments Other reaction(s): Other Other reaction(s): Other Other reaction(s): Other Other reaction(s): Other Trimethoprim Other reaction(s): Other, Other: See Comments, Other: See Comments Other reaction(s): Other Other reaction(s): Other Other reaction(s): Other Other reaction(s): Other Current Outpatient Medications on File Prior to Visit Medication Sig Dispense Refill aspirin 81 MG EC tablet Take 81 mg by mouth. ferrous fumarate-vitamin C ER (Yves-Sequeles 65-25) Take 1 tablet by mouth in the morning and 1 tablet at noon and 1 tablet in the evening. Take with meals. Do not crush, chew, or split. . Fluticasone-Salmeterol 500-50 MCG/ACT aerosol powder USE 1 INHALATION DAILY omega-3 (Fish Oil) 1000 MG capsule Take by mouth. [DISCONTINUED] amLODIPine (Norvasc) 5 MG tablet Take 5 mg by mouth daily. [DISCONTINUED] atorvastatin (Lipitor) 80 MG tablet Take 80 mg by mouth daily. [DISCONTINUED] metoprolol tartrate (Lopressor) 50 MG tablet Take 50 mg by mouth 2 times daily. [DISCONTINUED] omeprazole (PriLOSEC) [address] capsule Take 20 mg by mouth every morning (before breakfast). Do not crush or chew. No current facility-administered medications on file prior to visit. Patient Active Problem List Diagnosis Chest discomfort Other acute pulmonary embolism without acute cor pulmonale (HCC) Essential hypertension Hypercholesterolemia Cervical spine pain Social History Tobacco Use Smoking status: Never Smokeless tobacco: Never Substance Use Topics Alcohol use: No Alcohol/week: 0.0 standard drinks Past Surgical History: Procedure Laterality Date BUNIONECTOMY 2005 bilateral CARDIAC CATHETERIZATION 2015 CARDIAC CATHETERIZATION 05/2014 No CAD - Has had 3 COLONOSCOPY 07/06/2017 Normal. Repeat 10 years COLONOSCOPY 02/05/2022 Diverticulosis. Suggested repeat colonoscopy 5 years ERCP 08/12/2021 Sphincterotomy and balloon sweep EYE SURGERY 2016 Bilateral cataracts TONSILLECTOMY AND ADENOIDECTOMY (HISTORICAL) UPPER GASTROINTESTINAL ENDOSCOPY 09/12/2020 Duodenal erosion. Family History Problem Relation Name Age of Onset High Blood Pressure Father 66yrs Heart disease Mother 87yrs Coronary artery disease Mother 87yrs Other ([id number]) Mother 87yrs No MO - sudden Heart disease Sister MO - CABG Coronary artery disease Brother CABG at age 40 High Blood Pressure Mother 87yrs Heart disease Father 66yrs Assessment / Plan: Diagnosis Plan 1. Essential hypertension Comprehensive metabolic panel Comprehensive metabolic panel Controlled. Continue amlodipine and metoprolol. 2. Hypercholesterolemia Comprehensive metabolic panel Comprehensive metabolic panel Controlled. Continue Lipitor. Check liver enzymes 3. Elevated blood sugar Comprehensive metabolic panel Comprehensive metabolic panel Fasting blood sugar 4. Sleep apnea, unspecified type Patient has been set up for a home sleep study 5. Diabetes mellitus screening Fasting blood sugar 6. Gastroesophageal reflux disease without esophagitis Symptoms controlled with omeprazole 7. Cervical spine pain Encouraged to stretch the neck. No improvement will notify the office 8. Mild intermittent asthma without complication Patient feels that her asthma is stable. Patient does have a ip architect that has been managing this documented in this [facility]09-21-2022 NoteHNO ID: [id number] Author: Luis Daniel Glass RN Service: Gastroenterology Author Type: Registered Nurse Type: Nursing Progress Note Filed: 02/05/2022 9:14 AM Note Text: Assisted patient with dressing.[facility]09-21-2022 NoteHNO ID: [id number] Author: Luis Daniel Glass RN Service: Gastroenterology Author Type: Registered Nurse Type: Nursing Progress Note Filed: 02/05/2022 9:09 AM Note Text: MD at the bedside.[facility]09-21-2022 NoteHNO ID: [id number] Author: Luis Daniel Glass RN Service: Gastroenterology Author Type: Registered Nurse Type: Nursing Progress Note Filed: 02/05/2022 9:09 AM Note Text: Discharge instructions given, both patient and verbalized understanding.[facility]09-21-2022 Nurse Note* Luis Daniel Glass RN - 02/05/2022 9:13 AM EDT Assisted patient with dressing. * Luis Daniel Glass RN - 02/05/2022 9:09 AM EDT MD at the bedside. * Luis Daniel Glass RN - 02/05/2022 9:05 AM EDT Discharge instructions given, both patient and verbalized understanding. documented in this encounter[facility]22 Miscellaneous Notes* Anesthesia PreOp - Manuel Ponce MD - 02/05/2022 8:30 AM EDT HISTORY AND PHYSICAL Sharron Torres, 76 year old female Current history and physical on file: No Is a new History and Physical required for today's visit? Yes Indication for procedure: Diarrhea PROCEDURE(S) SCHEDULED FOR: Colonoscopy with or without biopsies and with or without removal of polyps or lesions, dilation (any means), treatment of bleeding (any means), based on clinical findings. BASELINE BEHAVIOR: Calm BASELINE ORIENTATION: A & O x3 All medications and allergies reviewed: Yes Skin Assessment: Warm dry mucus membranes pink Airway/Respiratory Assessment: Airway: visualization of the uvula- Yes Mouth: opening greater than 2 fingerbreadths- Yes Neck: full range of motion- Yes Breath sounds clear/equal- Yes Cardiac Assessment: Regular rate and rhythm without murmur Abdominal Assessment: Abdomen soft, non-tender, no masses or organomegaly. Sedation Plan: Moderate Additional Comments: None Manuel Ponce MD documented in this encounterK[facility]08-11-2022 Miscellaneous Notes* Telephone Encounter - Belem Whelan PA-C - 12/26/2021 8:49 AM EDT Called Sharron to discuss stool testing. Calprotectin is elevated at 884.1. Discussed the potential options of this today. Recommend Colonoscopy for further evaluation. Patient is willing to proceed. Colonoscopy order placed for ASC w/ Miralax bowel prep, can we please get her scheduled? Thanks! documented in this encounterKettering [facility]08-04-2022 NoteHNO ID: [id number] Author: Belem Whelan PA-C Service: ? Author Type: Physician Breeding Technician Type: Progress Notes Filed: 12/19/2021 9:21 AM Note Text: CHIEF COMPLAINT: Patient presents with: Diarrhea: Explosive and watery since Sat. Labs 09/24/21 ERCP 08/12/21 HPI Sharron Torres is a 76 year old female here today for Diarrhea (Explosive and watery since Sat. Labs 09/24/21 ERCP 08/12/21) PMHx of dyspareunia, choledocholithiasis, obesity is present today. Patient tells me that she has been dealing with diarrhea since stopping Ursodiol. Happening after eating. Can go numerous times a day and waking her up at night. Some times happens after not eating. No abdominal pain. No bloody or black stools. Stools are very watery. Stools are benavides now, no bloody or black stools. No recent nausea or vomiting. Ate a tomato x2 over the weekend which seemed to trigger her symptoms. Weight is down some. Getting some hunger, scared to eat. Not feeling bloated or gassy. Taking Imodium x2 daily, does seem to work. Taking Omeprazole and probiotic. No recent antibiotics. On Plavix since July from stroke. ERCP 08/09/2021: Pre-Op/Pre-Procedure Diagnosis: Abdominal pain with jaundice ? 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 Specimens: See above ? EBL: None ? Complications: None ? Recommendations:1. NPO for next 4 hours, if no symptoms, then start on clears 2. Lactated Ringer's @ 250 ml/ hour x 8 hours 3. If the patient experiences abdominal pain with or without nausea and vomiting, please check lipase and inform the endoscopist as they may be at risk for post-ERCP pancreatitis or perforation. 4 Monitor for GI bleeding, fever, chills 5. Follow on LFT's in AM Component Latest Ref Rng AND Units 08/25/2021 WBC 3.70 - 11.00 k/uL 9.27 RBC 3.90 - 5.20 m/uL 5.06 Hemoglobin 11.5 - 15.5 g/dL 13.2 Hematocrit 36.0 - 46.0 % 42.5 MCV 80.0 - 100.0 fL 84.0 MCH 26.0 - 34.0 pg 26.1 MCHC 30.5 - 36.0 g/dL 31.1 RDW-CV 11.5 - 15.0 % 16.6 (H) Platelet Count 150 - 400 k/uL 488 (H) MPV 9.0 - 12.7 fL 9.4 Absolute nRBC <0.01 k/uL <0.01 CRP <0.9 mg/dL 1.4 (H) WSR 0 - 20 mm/hr 41 (H) Current Outpatient Medications Medication Sig - omeprazole (PRILOSEC) 40 mg capsule Take 1 capsule by mouth once daily. (Patient taking differently: Take 10 mg by mouth once daily. ) - amLODIPine (NORVASC) 5 mg tablet Take 5 mg by mouth once daily. - azelastine (ASTELIN) 0.1% nasal spray twice daily as needed. - DOCOSAHEXANOIC ACID/EPA (FISH OIL ORAL) Take by mouth. - metoprolol succinate XL, long acting, 50 mg ORAL 24 hr tablet Take 50 mg by mouth twice daily. - atorvastatin calcium(LIPITOR 80 MG TAB) one tablet daily - COMPOUNDED PRESCRIPTION Use 1 Drop in both eyes once daily as needed. hydroxpropyl methylcellulose - aspirin(ECOTRIN LOW STRENGTH 81 MG TAB) Take one (1) tablet daily. - pyridoxine hcl(VITAMIN B-6 100 MG TAB) Take one(1) tablet daily.=dosage is 50 mg. No current facility-administered medications for this visit. ALLERGIES Allergen Reactions - Sulfamethoxazole Anaphylaxis Other reaction(s): Anaphylaxis Other reaction(s): Anaphylaxis - Environmental [Othe* ragweed= sneezing, itching, watery eyes - Evista [Raloxifene * increases intensity of hot flashes - Imdur [Isosorbide M* headache - Indomethacin Vomiting - Levaquin [Levofloxa* Tendonitis in arms - Premarin [Conjugate* Intolerance Increased BP - Solifenacin Other: See Comments Other reaction(s): Other Other reaction(s): Other - Trimethoprim Other: See Comments Other reaction(s): Other Other reaction(s): Other Social History Tobacco Use - Smoking status: Never Smoker - Smokeless tobacco: Never Used Substance Use Topics - Alcohol use: No - Drug use: No PAST MEDICAL HISTORY Diagnosis Date - Anemia 05/2020 - Gout - H/O blood clots 2017 - History of combined right and left heart catheterization 2019 - History of esophagogastroduodenoscopy (EGD) 09/12/2020 - PMH - PAST MEDICAL HISTORY OF elevated cholesterol - PMH - PAST MEDICAL HISTORY OF asthma, as child and teen - PMH - PAST MEDICAL HISTORY OF 05/18/1976 hepatitis - PMH - PAST MEDICAL HISTORY OF 05/18/1976 fractured jaw - PMH - PAST MEDICAL HISTORY OF 05/18/2008 stress test - PMH - PAST MEDICAL HISTORY OF 05/18/2006 back pain - PMH - PAST MEDICAL HISTORY OF 05/18/2008 tendenitis=both forarms. - Postmenopausal bleeding 04/17/2007 Postmenop. bleeding - Sleep apnea - Unspecified essential hypertension Essential hypertension PAST SURGICAL HISTORY Procedure Laterality Date - ADENOIDECTOMY PRIMARY Adenoidectomy - CATARACT SURGERY, COMPLEX Right 11/2015 - COLONOSCOPY GEN ANES 2017 - DILATION AND CURETTAGE DXAND/THER NONOBSTETRIC 1983 Dilation (more content not included)...[facility]08-04-2022 History of Present illness Narrative* Belem Whelan PA-C - 12/19/2021 8:52 AM EDT CHIEF COMPLAINT: Patient presents with: Diarrhea: Explosive and watery since Sat. Labs 09/24/21 ERCP 08/12/21 HPI Sharron Torres is a 76 year old female here today for Diarrhea (Explosive and watery since Sat. Labs 09/24/21 ERCP 08/12/21) PMHx of dyspareunia, choledocholithiasis, obesity is present today. Patient tells me that she has been dealing with diarrhea since stopping Ursodiol. Happening after eating. Can go numerous times a day and waking her up at night. Some times happens after not eating. No abdominal pain. No bloody or black stools. Stools are very watery. Stools are benavides now, no bloody or black stools. No recent nausea or vomiting. Ate a tomato x2 over the weekend which seemed to trigger her symptoms. Weight is down some. Getting some hunger, scared to eat. Not feeling bloated or gassy. Taking Imodium x2 daily, does seem to work. Taking Omeprazole and probiotic. No recent antibiotics. On Plavix since July from stroke. 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 NPO for next 4 hours, if no symptoms, then start on clears 2. Lactated Ringer's @ 250 ml/ hour x 8 hours 3. If the patient experiences abdominal pain with or without nausea and vomiting, please check lipase and inform the endoscopist as they may be at risk for post-ERCP pancreatitis or perforation. 4 Monitor for GI bleeding, fever, chills 5. Follow on LFT's in AM Component Latest Ref Rng & Units 08/25/2021 WBC 3.70 - 11.00 k/uL 9.27 RBC 3.90 - 5.20 m/uL 5.06 Hemoglobin 11.5 - 15.5 g/dL 13.2 Hematocrit 36.0 - 46.0 % 42.5 MCV 80.0 - 100.0 fL 84.0 MCH 26.0 - 34.0 pg 26.1 MCHC 30.5 - 36.0 g/dL 31.1 RDW-CV 11.5 - 15.0 % 16.6 (H) Platelet Count 150 - 400 k/uL 488 (H) MPV 9.0 - 12.7 fL 9.4 Absolute nRBC <0.01 k/uL <0.01 CRP <0.9 mg/dL 1.4 (H) WSR 0 - 20 mm/hr 41 (H) Current Outpatient Medications Medication Sig omeprazole (PRILOSEC) 40 mg capsule Take 1 capsule by mouth once daily. (Patient taking differently: Take 10 mg by mouth once daily. ) amLODIPine (NORVASC) 5 mg tablet Take 5 mg by mouth once daily. azelastine (ASTELIN) 0.1% nasal spray twice daily as needed. DOCOSAHEXANOIC ACID/EPA (FISH OIL ORAL) Take by mouth. metoprolol succinate XL, long acting, 50 mg ORAL 24 hr tablet Take 50 mg by mouth twice daily. atorvastatin calcium(LIPITOR 80 MG TAB) one tablet daily COMPOUNDED PRESCRIPTION Use 1 Drop in both eyes once daily as needed. hydroxpropyl methylcellulose aspirin(ECOTRIN LOW STRENGTH 81 MG TAB) Take one (1) tablet daily. pyridoxine hcl(VITAMIN B-6 100 MG TAB) Take one(1) tablet daily.=dosage is 50 mg. No current facility-administered medications for this visit. ALLERGIES Allergen Reactions Sulfamethoxazole Anaphylaxis Other reaction(s): Anaphylaxis Other reaction(s): Anaphylaxis Environmental [Othe* ragweed= sneezing, itching, watery eyes Evista [Raloxifene * increases intensity of hot flashes Imdur [Isosorbide M* headache Indomethacin Vomiting Levaquin [Levofloxa* Tendonitis in arms Premarin [Conjugate* Intolerance Increased BP Solifenacin Other: See Comments Other reaction(s): Other Other reaction(s): Other Trimethoprim Other: See Comments Other reaction(s): Other Other reaction(s): Other Social History Tobacco Use Smoking status: Never Smoker Smokeless tobacco: Never Used Substance Use Topics Alcohol use: No Drug use: No PAST MEDICAL HISTORY Diagnosis Date Anemia 05/2020 Gout H/O blood clots 2017 History of combined right and left heart catheterization 2019 History of esophagogastroduodenoscopy (EGD) 09/12/2020 PMH - PAST MEDICAL HISTORY OF elevated cholesterol PMH - PAST MEDICAL HISTORY OF asthma, as child and teen PMH - PAST MEDICAL HISTORY OF 05/18/1976 hepatitis PMH - PAST MEDICAL HISTORY OF 05/18/1976 fractured jaw PMH - PAST MEDICAL HISTORY OF 05/18/2008 stress test PMH - PAST MEDICAL HISTORY OF 05/18/2006 back pain PMH - PAST MEDICAL HISTORY OF 05/18/2008 tendenitis=both forarms. Postmenopausal bleeding 04/17/2007 Postmenop. bleeding Sleep apnea Unspecified essential hypertension Essential hypertension PAST SURGICAL HISTORY Procedure Laterality Date ADENOIDECTOMY PRIMARY <AGE 14 1953 Adenoidectomy CATARACT SURGERY, COMPLEX Right 11/2015 COLONOSCOPY GEN ANES 2018 DILATION & CURETTAGE DX&/THER NONOBSTETRIC 1983 Dilation & curettage and cauterized a lesion EGD TRANSORAL BIOPSY SINGLE/MULTIPLE 09/12/2020 ERCP 08/12/2021 LASER SURGERY OF EYE 2008 right eye LIG/TRNSXJ FLP TUBE ABDL/VAG APPR UNI/BI 1976 PAST SURGICAL HISTORY OF 1997, 2008 heart cath. PAST SURGICAL HISTORY OF 2004 bilateral bunionectomy PAST SURGICAL HISTORY OF 2006 colonoscopy REMOVAL GALLBLADDER 2019 SKIN BIOPSY HX Basil cell removal 04/2017 TONSILLECTOMY PRIMARY/SECONDARY <AGE 14 1954 Tonsillectomy FAMILY HISTORY Problem Relation Age of Onset Heart Mother Hypertension Mother Heart Father Hypertension Father Heart Sister Heart Brother REVIEW OF SYSTEMS Review of Systems Respiratory: Positive for apnea, chest tightness and shortness of breath. Cardiovascular: Positive for chest pain and leg swelling. Gastrointestinal: Positive for diarrhea and vomiting. Change in bowel habits All other systems reviewed and are negative. PHYSICAL EXAM BP 122/64 Pulse 66 Ht 5' 2 (1.58m) Wt 169 lb (76.7kg) BMI 30.90 kg/(m^2). Physical Exam Constitutional: Appearance: Normal appearance. She is obese. HENT: Head: Normocephalic and atraumatic. Nose: Nose normal. Eyes: General: No scleral icterus. Extraocular Movements: Extraocular movements intact. Conjunctiva/sclera: Conjunctivae normal. Pupils: Pupils are equal, round, and reactive to light. Cardiovascular: Rate and Rhythm: Normal rate and regular rhythm. Pulses: Normal pulses. Heart sounds: Normal heart sounds. Pulmonary: Effort: Pulmonary effort is normal. Breath sounds: Normal breath sounds. Abdominal: General: Abdomen is flat. Palpations: Abdomen is soft. Tenderness: There is no abdominal tenderness. Comments: Hyperactive bowel sounds Musculoskeletal: General: Normal range of motion. Cervical back: Normal range of motion and neck supple. Skin: General: Skin is warm and dry. Coloration: Skin is not jaundiced. Neurological: General: No focal deficit present. Mental Status: She is alert and oriented to person, place, and time. Psychiatric: Mood and Affect: Mood normal. Behavior: Behavior normal. Thought Content: Thought content normal. Judgment: Judgment normal. Assessment/Plan (R19.7) Diarrhea, unspecified type (primary encounter diagnosis) (R79.89) Elevated LFTs 1. Diarrhea, unspecified type -- Patient with worsening diarrhea since Thursday. Making 20 trips to the bathroom at a time. Waking her up at night. -- Continue Probiotics -- Will check full panel of stool testing -- Colonoscopy pending results of stool testing r/o Lymphocytic colitis - PANC ELASTASE, FECAL - FAT, FECAL QUAL - C. DIFFICILE PCR - STOOL CULTURE/EIA - CRYPTOSPORIDIUM AND GIARDIA ANTIGENS BY EIA - CULTURE, YERSINIA - CALPROTECTIN,FECAL 2. Elevated LFTs -- Will recheck LFTs as they have been slowly decreasing - HEPATIC FUNCTION PNL; Future Follow up in office PRN. Recommended to please call office/go to ER if fever, chills, chest pain, SOB, diarrhea, nausea, emesis, worsening abdominal pain, dehydration occurs I spent 25 minutes in the visit, with more than 50% of the total [id number] time of the visit in counseling / coordination of care. I have confirmed and edited as necessary, the PFSH and ROS obtained by others. Belem Whelan PA-C December 19, 2021 9:15 AM documented in this encounterK[facility]07-12-2022 NoteHNO ID: [id number] Author: Hans Santiago MD Service: ? Author Type: Physician Type: Progress Notes Filed: 11/26/2021 10:02 AM Note Text: AMBULATORY TELEPHONE VISIT Sharron Torres has consented to this telephone encounter. Persons Present: patient Chief Complaint/Reason: questions about hospital course HPI: doing well. No jaundice. No pain Data Reviewed: Most recent labs and imaging results. Assessment: (K26.9) Duodenal erosion (primary encounter diagnosis) I reviwed her ERCP results. She had an ulcer causing obstruction. No mass Plan: Will give her a copy of her ERCP report. Can follow-up as needed Total Time Spent: 11 minutes Hans Santiago [facility]07-12-2022 History of Present illness Narrative* Hans Santiago MD - 11/26/2021 9:55 AM EDT AMBULATORY TELEPHONE VISIT Sharron Torres has consented to this telephone encounter. Persons Present: patient Chief Complaint/Reason: questions about hospital course HPI: doing well. No jaundice. No pain Data Reviewed: Most recent labs and imaging results. Assessment: (K26.9) Duodenal erosion (primary encounter diagnosis) I reviwed her ERCP results. She had an ulcer causing obstruction. No mass Plan: Will give her a copy of her ERCP report. Can follow-up as needed Total Time Spent: 11 minutes Hans Santiago MD documented in this encounterK[facility]04-01-2022 Miscellaneous Notes* Telephone Encounter - Babak Ba RN - 08/16/2021 1:19 PM EDT Attempted to contact patient regarding below concerns, but no answer and unable to leave . 1. Your discharge instructions are important in guiding you through the recovery process. Is there anything I could help you clarify on your discharge instructions? (Standard Question) No, All Clear 2. Do you have a follow up appointment related to your hospital stay scheduled within the next 30 days? (Standard Question) Yes 3. Do you have all the necessary equipment at home to safely perform your daily activities? (Red Flag Question) Yes 4. Many patients have concerns about their medications once they are home. Do you have questions orconcerns about your medications? (Standard Question) No 4a. Do you have your medications? Yes 4b. Are you experiencing any side effects to your medications? Yes, Side Effect- feeling symptoms question whether it was a side effect of the med MA/SN Notes: Pt states that it needs to go to toilet every 30/45 min and is concerned about it 5. Do you have any new or different symptoms? New or debilitating weakness, change in vision, balance, sensation, speech or language?(Standard Question) No 5b. Does patient have priority symptoms that require clinical intervention? (Question only asked byRN if new or worsening symptoms) No, Patient NOT having any new or different symptoms NOC Clinical Summary: Attempted to call patientx3. No answer, unable to leave VM. 6. During your stay, did a member of your care team review the signs and symptoms of stroke? Can you list some of the BE FAST symptoms? Yes MA/SN Notes: eyes , speech 7. During your stay, did a member of your care team review the risk factors for stroke? Can you list some of your risk factors for stroke? Yes MA/SN Notes: Smoke , diabetes 8. Based on the care you received, would you recommend the stroke program? Yes 8a. Is there anything that stood out about your care that you would like to share with us? No MA/SN Notes: All Good 8b. What would you recommend we do to improve care in the future? No documented in this encounterKettering [facility]03-29-2022 NoteHNO ID: [id number] Author: Dena Bo RN Service: Care Management Author Type: Registered Nurse Type: Care Mgt Progress Note Filed: 08/13/2021 4:01 PM Note Text: CARE MANAGEMENT DISCHARGE NOTE SERVICE DATE: 08/13/2021 SERVICE TIME: 4:00 PM LOS: 4 days Admission Date: 08/09/2021 DISCHARGE ARRANGEMENT (list agency and phone number) Discharge Arrangement: Home with Self Care CAREGIVER ASSESSMENT: Caregiver is ready, willing and able to meet the patient's needs as recommended by the inter-professional team:: Yes Does the patient have an acute stroke diagnosis, or has the patient had a stroke during this admission?: No Patient's transition needs and plan for meeting these needs: Home with follow up care HANDOFF COMMUNICATION: Handoff to: Other Caregiver Other Caregiver Name/Phone: Bedside RN to give patient discharge instructions TRANSPORTATION ARRANGEMENTS: Transportation Arrangements: Car Needs Prior to Discharge: Ready for Discharge Discharge today. Discharge orders complete. Plan is home with follow up care. SIGNATURE: Dena Bo RN PATIENT NAME: Sharron Torres DATE: August 13, 2021 TIME: 4:00 PM PAGER/CONTACT #: [phone] [facility]03-29-2022 Note HNO ID: [id number] Author: José Miguel Borges MD Service: General Surgery Author Type: Resident Type: Progress Notes Filed: 08/13/2021 9:41 AM Note Text: Attestation signed by Hans Santiago MD at 08/13/2021 6:33 PM I saw and evaluated the patient. Discussed with the resident and agree with resident's findings and plan as documented in the resident's note. August 13, 2021 Hans Santiago MD 6:32 PM Plan of care discussed with: Provider, RN, Patient. Elective General Surgery ([facility]) Progress Note SERVICE DATE: August 13, 2021 Elective General Surgery (Blue Surgery) Service Pager: For questions or concerns Mon-Fri 6a-5p please page [phone]. After 5pm and on Weekends and Holidays, please page [phone] if in ICU or [phone] if on RNF. Subjective SUBJECTIVE: Yesterday, patient went for ERCP which revealed a benign stricture likely 2/2 a healed peptic ulcer at the level of the ampulla, and a sphincterotomy was performed. A cholangiogram was clear of choledocholithiasis per gastroenterology reports. This morning patient states that she feels much better. She denies any n/v, f/c, abdominal pain, or itching skin/change in color of skin/urine. Tolerating diet DIET LIQUID Objective OBJECTIVE: Vitals: Temp (24hrs), Av.6 ?C (97.8 ?F), Min:36.4 ?C (97.5 ?F), Max:36.7 ?C (98.1 ?F) BP 154/72 Pulse 76 Temp 36.6 ?C (97.9 ?F) (Oral) Resp 16 Ht 157.5 cm (5' 2) Wt 88.8 kg (195 lb 12.3 oz) SpO2 97% BMI 35.81 kg/m? O2 Therapy: Room Air IANDO: Date 08/12/21 0700 - 08/13/21 0659 08/13/21 0700 - 08/14/21 0659 Shift 5906-5598 1771-0909 4770-2302 24 Hour Total 1168-0982 0435-7781 3304-2280 24 Hour Total INTAKE IV 700 700 Volume (mL) (lactated ringers iv infusion) 700 700 Shift Total 700 700 OUTPUT Urine 2100 1125 1500 4725 Void (ml) 2100 1125 1500 4725 Emesis 30 30 Emesis (ml) 30 30 Shift Total 2100 1155 1500 4755 Weight (kg) 88.8 88.8 88.8 88.8 88.8 88.8 88.8 88.8 MEDICATIONS Current Facility-Administered Medications Medication Dose Route Frequency - enoxaparin 40 mg injection (LOVENOX) 40 mg SUBCUTANEOUS q 24 HR - pantoprazole 40 mg injection (PROTONIX) 40 mg INTRAVENOUS BID - [MAR Hold due to Transfer] pantoprazole 40 mg injection (PROTONIX) 40 mg INTRAVENOUS DAILY (6 AM) - atorvastatin 80 mg tab(s) (LIPITOR) 80 mg ORAL DAILY - metoprolol succinate ER 50 mg tab(s) (TOPROL XL) 50 mg ORAL BID - amLODIPine 5 mg tab(s) (NORVASC) 5 mg ORAL DAILY - sodium chloride 0.9 % (flush) 3-5 mL (BD POSIFLUSH) 3-5 mL INTRAVENOUS q 12 H - NaCl 0.9% iv flush bag 20 mL INTRAVENOUS PRN - lactated ringers iv infusion 75 mL/hr INTRAVENOUS CONTINUOUS - ondansetron 4 mg tab(s) (ZOFRAN) 4 mg ORAL q 6 H PRN Or - ondansetron (PF) 4 mg injection (ZOFRAN) 4 mg INTRAVENOUS q 6 H PRN - acetaminophen 1,000 mg tab(s) (TYLENOL) 1,000 mg ORAL q 6 H - oxyCODONE IR 5-10 mg tab(s) (ROXICODONE) 5-10 mg ORAL q 4 H PRN - piperacillin-tazobactam 3.375 g in D5W 50 mL Vial-Bag (ZOSYN) 3.375 g INTRAVENOUS q 6 H Labs: Recent Labs 08/13/21 0730 08/12/21 0830 NA 136 139 K 3.5* 3.7 CHLOR 98 105 CO2 24 24 BUN 7 6* CREAT 0.77 0.75 GLUC 103* 106* ANION 14 10 CA 9.0 8.8 ALB 3.3* 3.1* AST 69* 49* ALT 73* 79* ALKPHOS 502* 279* TBILI 3.5* 1.9* WBC 8.71 8.86 HB 12.7 12.5 HCT 42.3 40.2 PLT 244 235 Physical Exam: GENERAL: resting comfortably, in no acute distress HEENT: normocephalic, atraumatic, EOMI NECK: trachea midline, no JVD LUNGS: Unlabored breathing, equal chest rise bilaterally CARDIAC: Regular rate, warm and well perfused extremities ABDOMEN: Soft, non-tender, non-distended, no rebound or guarding EXTREMITIES: COLE, No deformities, No edema SKIN: Skin color, texture, turgor normal, No rashes or lesions NEURO: AANDOx3, CN II-XII grossly intact PSYCH: normal mood and affect ASSESSMENT AND PLAN: Assessment Active Hospital Problems Diagnosis Date Noted - Obesity, Class II, BMI 35-39.9 08/13/2021 - Choledocholithiasis 08/09/2021 Assessment: 75 year old female with a?relevant medical and surgical hx?significant for unprovoked LLE blood clot (managed with 6 mo Eliquis), stroke in 07/2021 (now on aspirin), and 3 cardiac stents in 2014, who presents with choledocholithiasis per lab work and CT. ? - Okay for CLD this morning, and ADAT - Will monitor PO intake this am - Stop zosyn today - LFT's this morning showed elevation of the T. Bili, conjugated bili, and ALP - Consistent with instrumentation of the CBD - LVX okay to start today - Encourage ambulation,?up out of bed,?incentive spirometry - Will restart ASA at dischage - Dispo: pending diet advancement, possible discharge home this morning Assessment and plan d/w Dr. Santiago. SIGNATURE: José Miguel Borges MD PATIENT NAME: Sharron (more content not included)... [facility]03-28-2022 NoteHNO ID: [id number] Author: Rossy Chavis APRN.TEXTILE MACHINERY SALES REPRESENTATIVE Service: Anesthesiology Author Type: Nurse Cnc Mill Programmer Type: Anesthesia Procedure Notes Filed: 08/12/2021 5:33 PM Note Text: ANESTHESIOLOGY PROCEDURE NOTE Airway General Information Procedure Start Time/Medication Administration: 08/12/2021 5:23 PM Patient location during procedure: OR Timeout Performed Pre-procedure: timeout performed Consent Obtained: Yes Patient identity confirmed: arm band Staffing TEXTILE MACHINERY SALES REPRESENTATIVE: Rossy Chavis APRN.TEXTILE MACHINERY SALES REPRESENTATIVE Performed by: EMILIO Indications and Patient Condition Preoxygenated: yes Indications for airway management: anesthesia anesthesia circuit Method: asleep Final Airway Details Final airway type: endotracheal airway Final Endotracheal Airway: ETT Cuffed: yes Successful intubation technique: direct laryngoscopy Endotracheal tube insertion site: oral Blade: Florencia Blade size: #3 ETT size (mm): 7.0 Measured from: lips Measurement (cm): 22 Placement verified by: chest auscultation and capnometry Cormack-Lehane Classification: grade I - full view of glottis Number of attempts at approach: 1 SIGNATURE: Rossy Chavis APRN.CRNA PATIENT NAME: Sharron Torres DATE: August 12, 2021 TIME: 5:32 PM [facility]: [id number] NoteHNO ID: [id number] Author: Dena Bo RN Service: Care Management Author Type: Registered Nurse Type: Care Mgt Initial Assessment Filed: 08/12/2021 12:39 PM Note Text: CARE MANAGEMENT: ASSESSMENT AND DISCHARGE PLAN SERVICE DATE: August 12, 2021 SERVICE TIME: 12:29 PM PRIMARY CARE PHYSICIAN: Chevy Matthew DO (Confirmed with patient) ADMISSION STATUS: Inpatient Needs Prior to Discharge: Pharmacy Bedside Delivery MEDICAL: MEDICARE A AND B +Rx coverage 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 Last discharge within 30 days: Yes Is this a planned readmission?: No Unplanned Reason: Other: See Comment (Choledocholithiasis) Followed Up with Appointment Prior to Admission: Patient scheduled, but readmitted prior Advance Directive: Current Advance Directive: Health Care Power of Traffic Controller Cable;Living Will In Chart: No Encouraged patient to bring in copies of her advance directives Health LiteracyHow often do you need to have someone help you when you read instructions, pamphlets, or other written material from your doctor or pharmacy? : 1 - Never How confident are you filling out medical forms by yourself?: 1 - Extremely If Patient scores > 3 on either question, the following interventions were put into place:: Patient did not score > 3 on either question. Baseline Mental Status Prior to this Illness what was the patient's Baseline Mental Status?: Alert AND Oriented Prior to this illness, has anyone described the patient having any of the following behaviors?: Not Applicable Relationship of the informant to the patient:: Self Functional Status: Independent Does Patient Currently Receive Any Community Services or Home Care?: None Equipment Prior to Admission: Bi-level Positive Airway Pressure/Continuous Positive Airway Pressure;Pulse Oximeter Has the Patient Been in a Care Home Facility in the Past 30 days?: No SOCIAL: Living Arrangements: Home Lives With: Spouse Financial Resources: Retired Primary Contact: Extended Emergency Contact Information Primary Emergency Contact: Glenn Torreskory Hale Howell Relation: Spouse Supportive Patient Contact:: Yes Contact Resources: Family Caregiver AssessmentCaregiver is ready, willing and able to meet the patient's needs as recommended by the inter-professional team:: Yes Does the patient have an acute stroke diagnosis, or has the patient had a stroke during this admission?: No Patient's transition needs and plan for meeting these needs: Home with follow up care Patient's perception of need for this admission: Abdominal pain. Vomiting. Blockage. Medication Adherance I am convinced of the importance of my prescription medication: 0 - Agree Completely I worry that my prescription medication will do more harm than good to me : 0 - Disagree Completely I feel financially burdened by my [id number] expenses for my prescription medication:: 0 - Disagree Completely Risk Score: 0 Patient is categorized as: Low risk < 2 Are you interested in bedside delivery of your medications? Yes Is Patient Psychosocially Complex?: No ASSESSMENT AND PLAN: Medical Needs: Medical Needs: Two or more chronic diseases Psychosocial Needs: Psychosocial Needs: None FREEDOM OF CHOICE EXPLAINED: [place] of Choice Given: No Reason Not Given: No placements necessary POTENTIAL TRANSITION PLANS Home Chart reviewed. Patient presents with choledocholithiasis. GI consulted. Plan is for ERCP today. Spoke with patient at the bedside. Explained care management role. Emotional support provided. Patient from home with her spouse prior to admission Home Set Up: 1 level/ 2 steps to enter Functional Status: Independent/ Retired/ Drives Equipment Prior to Admission: Continuous Positive Airway Pressure;Pulse Oximeter PCP: Chevy Matthew DO Patient is hopeful to return home once medically stable. Patient states her family is willing/ able to assist as needed and will provide transportation at discharge. Will follow clinical course for DC planning needs. SIGNATURE: Dena Bo RN PATIENT NAME: Sharron Torres DATE: August 12, 2021 TIME: 12:29 PM PAGER/CONTACT #: [phone] [facility]03[facility]28[facility] Note HNO ID: [id number] Author: Dena Bo RN Service: Care Management Author Type: Registered Nurse Type: Care Mgt Progress Note Filed: 08/12/2021 11:47 AM Note Text: CARE MANAGEMENT PROGRESS NOTE SERVICE DATE: 08/12/2021 SERVICE TIME: 11:47 AM LOS: 3 days IMM Follow Up Copy Given: Yes Copy given to:: Patient Method: In Person SIGNATURE: Dena Bo RN PATIENT NAME: Sharron Torres DATE: August 12, 2021 TIME: 11:47 AM PAGER/CONTACT #: [phone] [facility] Note HNO ID: [id number] Author: Prashant Shah DO Service: General Surgery Author Type: Resident Type: Progress Notes Filed: 08/12/2021 7:53 AM Note Text: Attestation signed by Hans Santiago MD at 08/13/2021 6:29 PM I saw and evaluated the patient. Discussed with the resident and agree with resident's findings and plan as documented in the resident's note. August 13, 2021 Hans Santiago MD 6:29 PM Plan of care discussed with: Provider, RN, Patient. Elective General Surgery (Blue Surgery) Progress Note SERVICE DATE: August 12, 2021 Elective General Surgery (Blue Surgery) Service Pager: For questions or concerns Mon-Fri 6a-5p please page [phone]. After 5pm and on Weekends and Holidays, please page [phone] if in ICU or [phone] if on RNF. Subjective SUBJECTIVE: No acute events overnight. Patient states she is feels about the same. She denies any nausea or vomiting. She is passed gas but has not had bowel movement yet. She has ambulated to the bathroom but no further. Tolerating diet DIET NPO Objective OBJECTIVE: Vitals: Temp (24hrs), Av.7 ?C (98 ?F), Min:36.6 ?C (97.9 ?F), Max:36.8 ?C (98.2 ?F) BP 163/74 Pulse 69 Temp 36.8 ?C (98.2 ?F) (Oral) Resp 16 Ht 157.5 cm (5' 2) Wt 88.8 kg (195 lb 12.3 oz) SpO2 93% BMI 35.81 kg/m? O2 Therapy: Room Air IANDO: Date 08/11/21 07 - 08/12/21 0659 08/12/21 0700 - 08/13/21 0659 Shift 4718-4021 6670-0810 4860-4737 24 Hour Total 6197-9622 6207-9746 1229-7269 24 Hour Total INTAKE PO 360 360 PO 360 360 IV 650 100 750 Volume (mL) (piperacillin-tazobactam 3.375 g in D5W 50 mL Vial-Bag (ZOSYN)) 50 100 150 Volume (mL) (lactated ringers iv infusion) 600 600 Shift Total 8073 098 1031 OUTPUT Urine 1328 092 2634 3250 Void (ml) 5484 802 4223 3250 Shift Total 2704 051 1355 3250 Weight (kg) 81.6 81.6 88.8 88.8 88.8 88.8 88.8 88.8 MEDICATIONS Current Facility-Administered Medications Medication Dose Route Frequency - pantoprazole 40 mg injection (PROTONIX) 40 mg INTRAVENOUS DAILY (6 AM) - atorvastatin 80 mg tab(s) (LIPITOR) 80 mg ORAL DAILY - metoprolol succinate ER 50 mg tab(s) (TOPROL XL) 50 mg ORAL BID - amLODIPine 5 mg tab(s) (NORVASC) 5 mg ORAL DAILY - sodium chloride 0.9 % (flush) 3-5 mL (BD POSIFLUSH) 3-5 mL INTRAVENOUS q 12 H - NaCl 0.9% iv flush bag 20 mL INTRAVENOUS PRN - lactated ringers iv infusion 75 mL/hr INTRAVENOUS CONTINUOUS - ondansetron 4 mg tab(s) (ZOFRAN) 4 mg ORAL q 6 H PRN Or - ondansetron (PF) 4 mg injection (ZOFRAN) 4 mg INTRAVENOUS q 6 H PRN - acetaminophen 1,000 mg tab(s) (TYLENOL) 1,000 mg ORAL q 6 H - oxyCODONE IR 5-10 mg tab(s) (ROXICODONE) 5-10 mg ORAL q 4 H PRN - piperacillin-tazobactam 3.375 g in D5W 50 mL Vial-Bag (ZOSYN) 3.375 g INTRAVENOUS q 6 H Labs: Recent Labs 08/11/21 0627 08/11/21 0053 08/10/21 0326 08/09/21 1404 NA 139 -- 140 143 K 3.6* -- 3.7 3.9 CHLOR 107* -- 109* 109* CO2 23 -- 24 23 BUN 8 -- 12 14 CREAT 0.82 -- 0.94 0.96 GLUC 112* -- 129* 126* ANION 9 -- 7* 11 CA 8.2* -- 8.2* 8.6 ALB 2.9* -- 2.9* 3.5* AST 55* -- 91* 152* ALT 96* -- 141* 210* ALKPHOS 219* -- 203* 220* TBILI 2.8* -- 4.3* 4.6* WBC -- 10.50 11.96* 12.24* HB -- 11.2* 11.6 12.4 HCT -- 37.6 38.8 40.2 PLT -- 225 208 245 INR -- -- -- 1.1 Physical Exam: GENERAL: resting comfortably, in no acute distress HEENT: normocephalic, atraumatic, EOMI NECK: trachea midline, no JVD LUNGS: Unlabored breathing, equal chest rise bilaterally CARDIAC: Regular rate, warm and well perfused extremities ABDOMEN: Soft, non-tender, non-distended, no rebound or guarding EXTREMITIES: COLE, No deformities, No edema SKIN: Skin color, texture, turgor normal, No rashes or lesions NEURO: AANDOx3, CN II-XII grossly intact PSYCH: normal mood and affect ASSESSMENT AND PLAN: Assessment Active Hospital Problems Diagnosis Date Noted - Choledocholithiasis 08/09/2021 Assessment: 75 year old female with a?relevant medical and surgical hx?significant for unprovoked LLE blood clot (managed with 6 mo Eliquis), stroke in 07/2021 (now on aspirin), and 3 cardiac stents in 2014, who presents with choledocholithiasis per lab work and CT. ? -Diet, IV fluids -N.p.o. from midnight -Leukocytosis normalized - zosyn -Continue until after procedure - GI consulted?for evaluation of ERCP ?-Plan for ERCP Thursday -We will hold off on IR PTHC drain. -Hopeful that ERCP can help decompress. If unable may need PTHC drain. -Labs pending this morning -LFTs were downtrending yesterday. - LVX currently held given pending IR procedures, start ppx after -Encourage ambulation,?up out of bed,?incentive spirometry - aspirin resumption TBD Assessment and plan d/w Dr. Santiago. SIGNATURE: Prashant Shah DO PATIENT NAME: Sharron Hale Zoila ANA (more content not included)...[facility]03-27-2022 NoteHNO ID: [id number] Author: Izzy Fang APRN.OIL AND GAS FIELD TECHNICIAN Service: Gastroenterology Author Type: Nurse Specialist Type: Plan of Care Filed: 08/11/2021 2:49 PM Note Text: GI following for obstructive jaundice. Patient not seen today, but medical record reviewed No fever overnight. Leukocytosis resolved. On Zosyn CBC, Coags, BMP, Mg, Phos Recent Labs 08/11/21 0627 08/11/21 0053 08/10/21 0326 08/09/21 1404 WBC -- 10.50 11.96* 12.24* HB -- 11.2* 11.6 12.4 HCT -- 37.6 38.8 40.2 PLT -- 225 208 245 INR -- -- -- 1.1 APTT -- -- -- 26.8 NA 139 -- 140 143 K 3.6* -- 3.7 3.9 CHLOR 107* -- 109* 109* CO2 23 -- 24 23 BUN 8 -- 12 14 CREAT 0.82 -- 0.94 0.96 GLUC 112* -- 129* 126* CA 8.2* -- 8.2* 8.6 CSF AND Dilantin Liver Function, Amylase, AND Lipase Recent Labs 08/11/21 0627 08/10/216 08/09/21 1404 TPROT 5.6* 5.6* 6.3 ALB 2.9* 2.9* 3.5* ALT 96* 141* 210* AST 55* 91* 152* ALKPHOS 219* 203* 220* TBILI 2.8* 4.3* 4.6* Cardiac Enzymes ABGs T. Bili, D. Bili, ALT and AST improved with slight increase in Alk phos. GI plan as follows: Obstructive jaundice?- CT showed biliary dilation and serology tests demonstrate elevated liver testing. Concern for cholangitis. S/p cholecystectomy. ERCP at [facility] with cannulation of pancreatic duct, inability to locate CBD or ampulla and possible pancreas divisum.?No fever or chills in last 24 hours. - On Zosyn - Pain/nausea management per primary team - Tentative plan for ERCP on Saturday 08/12. 4 days after last dose of Plavix taken. Will need to be NPO after midnight - IR consult for PTC placed by primary team. Not done yet. - Recommend to hold Plavix for now. Last dose taken 08/08. - Cotninue Protonix 40 mg IV daily for now. ? History of CVA?- on Plavix - Last Dose of Plavix taken on 08/08. Currently on hold.?Continue to hold for planned ERCP. ? ? GI will continue to follow Izzy Fang APRN.OIL AND GAS FIELD TECHNICIAN Inpatient Gastroenterology 08/11/2021 ?[facility]03-27-2022 NoteHNO ID: [id number] Author: Prashant Shah DO Service: General Surgery Author Type: Resident Type: Progress Notes Filed: 08/11/2021 7:15 AM Note Text: Attestation signed by Damien Rodriguez MD at 08/11/2021 7:28 PM Attending Note I personally saw and examined the patient. I reviewed the resident's note. I agree with the resident's assessment and plan unless otherwise noted. Signature: Damien Rodriguez MD Date: 08/11/2021 Time: 7:28 PM [facility] General Surgery ([facility]) Progress Note SERVICE DATE: August 11, 2021 Elective General Surgery (Blue Surgery) Service Pager: For questions or concerns Mon-Fri 6a-5p please page [phone]. After 5pm and on Weekends and Holidays, please page [phone] if in ICU or [phone] if on RNF. Subjective SUBJECTIVE: Patient feels a little bit better today. Her abdominal pain is less than yesterday. She denies any emesis. She had a little bit of nausea but the medications appear to be helping. She has been tolerating her liquid diet. Tolerating diet DIET LIQUID DIET NPO Objective OBJECTIVE: Vitals: Temp (24hrs), Av.7 ?C (98.1 ?F), Min:36.5 ?C (97.7 ?F), Max:37.1 ?C (98.8 ?F) BP 140/78 Pulse 82 Temp 36.7 ?C (98.1 ?F) (Oral) Resp 18 Ht 157.5 cm (5' 2) Wt 81.6 kg (180 lb) SpO2 94% BMI 32.92 kg/m? O2 Therapy: Room Air IANDO: Date 08/10/21 0700 - 08/11/21 0659 08/11/21 0700 - 08/12/21 0659 Shift 8631-0020 4114-1904 0345-5186 24 Hour Total 0550-8775 3415-8947 0337-6622 24 Hour Total INTAKE PO 360 120 480 PO 360 120 480 IV 50 1550 1600 Volume (mL) (piperacillin-tazobactam 3.375 g in D5W 50 mL Vial-Bag (ZOSYN)) 50 50 100 Volume (mL) (lactated ringers iv infusion) 1500 1500 Shift Total 901 81 6616 2080 OUTPUT Urine 350 230 783 7497 Void (ml) 350 875 704 7379 Shift Total 350 093 167 9193 Weight (kg) 81.6 81.6 81.6 81.6 81.6 81.6 81.6 81.6 MEDICATIONS Current Facility-Administered Medications Medication Dose Route Frequency - pantoprazole 40 mg injection (PROTONIX) 40 mg INTRAVENOUS DAILY (6 AM) - atorvastatin 80 mg tab(s) (LIPITOR) 80 mg ORAL DAILY - metoprolol succinate ER 50 mg tab(s) (TOPROL XL) 50 mg ORAL BID - amLODIPine 5 mg tab(s) (NORVASC) 5 mg ORAL DAILY - sodium chloride 0.9 % (flush) 3-5 mL (BD POSIFLUSH) 3-5 mL INTRAVENOUS q 12 H - NaCl 0.9% iv flush bag 20 mL INTRAVENOUS PRN - lactated ringers iv infusion 125 mL/hr INTRAVENOUS CONTINUOUS - ondansetron 4 mg tab(s) (ZOFRAN) 4 mg ORAL q 6 H PRN Or - ondansetron (PF) 4 mg injection (ZOFRAN) 4 mg INTRAVENOUS q 6 H PRN - acetaminophen 1,000 mg tab(s) (TYLENOL) 1,000 mg ORAL q 6 H - oxyCODONE IR 5-10 mg tab(s) (ROXICODONE) 5-10 mg ORAL q 4 H PRN - piperacillin-tazobactam 3.375 g in D5W 50 mL Vial-Bag (ZOSYN) 3.375 g INTRAVENOUS q 6 H Labs: Recent Labs 08/11/21 0053 08/10/21 0326 08/09/21 1404 NA -- 140 143 K -- 3.7 3.9 CHLOR -- 109* 109* CO2 -- 24 23 BUN -- 12 14 CREAT -- 0.94 0.96 GLUC -- 129* 126* ANION -- 7* 11 CA -- 8.2* 8.6 ALB -- 2.9* 3.5* AST -- 91* 152* ALT -- 141* 210* ALKPHOS -- 203* 220* TBILI -- 4.3* 4.6* WBC 10.50 11.96* 12.24* HB 11.2* 11.6 12.4 HCT 37.6 38.8 40.2 PLT 225 208 245 INR -- -- 1.1 Physical Exam: GENERAL: resting comfortably, in no acute distress HEENT: normocephalic, atraumatic, EOMI NECK: trachea midline, no JVD LUNGS: Unlabored breathing, equal chest rise bilaterally CARDIAC: Regular rate, warm and well perfused extremities ABDOMEN: Soft, minimally tender to palpation, nondistended, no signs of peritonitis EXTREMITIES: COLE, No deformities, No edema SKIN: Skin color, texture, turgor normal, No rashes or lesions NEURO: AANDOx3, CN II-XII grossly intact PSYCH: normal mood and affect ASSESSMENT AND PLAN: Assessment Active Hospital Problems Diagnosis Date Noted - Choledocholithiasis 08/09/2021 Assessment: 75 year old female with a?relevant medical and surgical hx?significant for unprovoked LLE blood clot (managed with 6 mo Eliquis), stroke in 07/2021 (now on aspirin), and 3 cardiac stents in 2014, who presents with choledocholithiasis per lab work and CT. ? -Diet, IV fluids -N.p.o. from midnight -Leukocytosis normalized - zosyn -Continue until after procedure -Plan for IR PTHC - GI consulted for evaluation of ERCP ?-Plan for ERCP Thursday -LFTs pending this morning - LVX currently held given pending IR procedures, start ppx after -Encourage ambulation, up out of bed, incentive spirometry - aspirin resumption TBD Assessment and plan d/w Dr. Rodriguez. SIGNATURE: Prashant Shah DO PATIENT NAME: Sharron Torres DATE: August 11, 2021 TIME: 7:12 AM Pager: see below Elective General Surgery (Blue Surgery) Service Pager: For questions or concerns Thu-Thu 6a- (more content not included)...[facility]03-26-2022 NoteHNO ID: [id number] Author: Prashant Shah DO Service: General Surgery Author Type: Resident Type: Progress Notes Filed: 08/10/2021 7:01 AM Note Text: Attestation signed by Damien Rodriguez MD at 08/10/2021 11:50 AM Attending Note I personally saw and examined the patient. I reviewed the resident's note. I agree with the resident's assessment and plan unless otherwise noted. Signature: Damien Rodriguez MD Date: 08/10/2021 Time: 11:50 AM [facility] General Surgery ([facility] Surgery) Progress Note SERVICE DATE: August 10, 2021 Elective General Surgery (Blue Surgery) Service Pager: For questions or concerns Thu-Thu 6a-5p please page [phone]. After 5pm and on Weekends and Holidays, please page [phone] if in ICU or [phone] if on RNF. Subjective SUBJECTIVE: Patient feels a little bit better than she did yesterday. She denies any nausea or vomiting. She admits to some continued abdominal pain on the right side. Tolerating diet DIET NPO Objective OBJECTIVE: Vitals: Temp (24hrs), Av.7 ?C (98 ?F), Min:36.6 ?C (97.9 ?F), Max:36.8 ?C (98.2 ?F) BP 144/65 Pulse 86 Temp 36.8 ?C (98.2 ?F) (Oral) Resp 18 Ht 157.5 cm (5' 2) Wt 81.6 kg (180 lb) SpO2 94% BMI 32.92 kg/m? O2 Therapy: Nasal Cannula IANDO: Date 08/09/21699 - 08/10/2165808/10/21699 - 08/11/21 0659 Shift 9868-1868 4314-1121 1724-7406 24 Hour Total 6847-8854 1555-7494 1757-3464 24 Hour Total INTAKE PO 120 120 PO 120 120 IV 570 523 4589 Volume (mL) (lactated ringers iv infusion) 278 759 2141 Shift Total 198 886 5218 OUTPUT Urine 200 350 300 850 Void (ml) 200 350 300 850 Shift Total 200 350 300 850 Weight (kg) 81.6 81.6 81.6 81.6 81.6 81.6 81.6 81.6 MEDICATIONS Current Facility-Administered Medications Medication Dose Route Frequency - atorvastatin 80 mg tab(s) (LIPITOR) 80 mg ORAL DAILY - metoprolol succinate ER 50 mg tab(s) (TOPROL XL) 50 mg ORAL BID - amLODIPine 5 mg tab(s) (NORVASC) 5 mg ORAL DAILY - sodium chloride 0.9 % (flush) 3-5 mL (BD POSIFLUSH) 3-5 mL INTRAVENOUS q 12 H - NaCl 0.9% iv flush bag 20 mL INTRAVENOUS PRN - lactated ringers iv infusion 125 mL/hr INTRAVENOUS CONTINUOUS - ondansetron 4 mg tab(s) (ZOFRAN) 4 mg ORAL q 6 H PRN Or - ondansetron (PF) 4 mg injection (ZOFRAN) 4 mg INTRAVENOUS q 6 H PRN - acetaminophen 1,000 mg tab(s) (TYLENOL) 1,000 mg ORAL q 6 H - oxyCODONE IR 5-10 mg tab(s) (ROXICODONE) 5-10 mg ORAL q 4 H PRN - piperacillin-tazobactam 3.375 g in D5W 50 mL Vial-Bag (ZOSYN) 3.375 g INTRAVENOUS q 6 H Labs: Recent Labs 08/10/21 0326 08/09/21 1404 NA 140 143 K 3.7 3.9 CHLOR 109* 109* CO2 24 23 BUN 12 14 CREAT 0.94 0.96 GLUC 129* 126* ANION 7* 11 CA 8.2* 8.6 ALB 2.9* 3.5* AST 91* 152* ALT 141* 210* ALKPHOS 203* 220* TBILI 4.3* 4.6* WBC 11.96* 12.24* HB 11.6 12.4 HCT 38.8 40.2 PLT 208 245 INR -- 1.1 Physical Exam: GENERAL: resting comfortably, in no acute distress HEENT: normocephalic, atraumatic, EOMI NECK: trachea midline, no JVD LUNGS: equal chest rise bilaterally CARDIAC: Regular rate, warm and well perfused extremities ABDOMEN: Soft, mildly tender to palpation on the right side, nondistended, no signs of peritonitis EXTREMITIES: COLE, No deformities, No edema SKIN: Skin color, texture, turgor normal, No rashes or lesions NEURO: AANDOx3, CN II-XII grossly intact PSYCH: normal mood and affect ASSESSMENT AND PLAN: Assessment Active Hospital Problems Diagnosis Date Noted - Choledocholithiasis 08/09/2021 Assessment: 75 year old female with a relevant medical and surgical hx significant for unprovoked LLE blood clot (managed with 6 mo Eliquis), stroke in 07/2021 (now on aspirin), and 3 cardiac stents in 2014, who presents with choledocholithiasis per lab work and CT. ? - NPO, IVF -Leukocytosis improving - zosyn -Plan for IR PTHC today - GI consulted for evaluation of ERCP -Plan for ERCP today -LFTs downtrending - [facility] imaging being imported - LVX currently held given pending IR procedures, start ppx after -On 2 L nasal cannula attempt to wean -Encourage ambulation, up out of bed, incentive spirometry - aspirin resumption TBD Assessment and plan d/w Dr. Rodriguez. SIGNATURE: Prashant Shah DO PATIENT NAME: Sharron Torres DATE: August 10, 2021 TIME: 6:58 AM Pager: see below Elective General Surgery (Blue Surgery) Service Pager: For questions or concerns Mon-Fri 6a-5p please page [phone]. After 5pm and on Weekends and Holidays, please page [phone] if in ICU or [phone] if on RNF.[facility]03-02-2022 Evaluation note* Diagnosis Onset Date Resolution Status Asthma acute History of CVA (cerebrovascular accident) July 17 022 chronic Obesity chronic VIOLETTA (obstructive sleep apnea) [facility] Work Phone: 1(123) 930-445003-02-2022 Evaluation note* Diagnosis Onset Date Resolution Status ABRAHAM (dyspnea on exertion) [place] Essential hypertension chron ic History of CVA (cerebrovascular accident) July 17 022 chronic Asthma acute VIOLETTA (obstructive sleep apnea) [facility] Work Phone: 1(581) 274-596003-02-2022 Evaluation note* Diagnosis Onset Date Resolution Status Admit Date Essential hypertension chronic Ju 2024 10:31am History of CVA (cerebrovascular accident) July 17, 2021 chronic November 21, 2024 10:31am [facility] Work Phone: Evaluation note* Diagnosis Elevated LFTs- Primary Other abnormal blood chemistry documented in this encounter [facility] Work Phone: Evaluation note* Diagnosis Duodenal erosion- Primary Duodenal ulcer, unspecified as acute or chronic, without hemorrhage, perforation, or obstruction [facility] Duodenal erosion- Primary Duodenal ulcer, unspecified as acute or chronic, without hemorrhage, perforation, or obstruction [facility] Diagnosis Diarrhea, unspecified type- Primary Elevated LFTs Other abnormal blood chemistry [facility] Diagnosis Diarrhea, unspecified type Elevated fecal calprotectin [facility] Diagnosis Chronic bilateral low back pain without sciatica- Primary Essential hypertension Unspecified essential hypertension Hypercholesterolemia Pure hypercholesterolemia Gastroesophageal reflux disease without esophagitis Esophageal reflux [facility] Diagnosis Low back pain, unspecified Other chronic pain [facility] Diagnosis Low back pain, unspecified- Primary Other chronic pain Low back pain, unspecified Other chronic pain [facility] Diagnosis Mild intermittent asthma without complication- Primary Essential hypertension Unspecified essential hypertension Hypercholesterolemia Pure hypercholesterolemia Gastroesophageal reflux disease without esophagitis Esophageal reflux Chronic bilateral low back pain without sciatica [facility] Diagnosis Essential hypertension- Primary Unspecified essential hypertension Hypercholesterolemia Pure hypercholesterolemia Mild intermittent asthma without complication Gastroesophageal reflux disease without esophagitis Esophageal reflux Lumbar degenerative disc disease [facility] Diagnosis Lumbar degenerative disc disease [facility]* Diagnosis Encounter for subsequent annual wellness visit (AWV) in Medicare patient- Primary Essential hypertension Unspecified essential hypertension Hypercholesterolemia Pure hypercholesterolemia Gastroesophageal reflux disease without esophagitis Esophageal reflux Lumbar degenerative disc disease Primary hypertension Unspecified essential hypertension Mild intermittent asthma without complication Seasonal allergic rhinitis due to pollen Routine general medical examination at health care facility Routine general medical examination at a health care facility [facility]* Diagnosis Lumbar degenerative disc disease- Primary [facility]* Diagnosis Essential hypertension- Primary Unspecified essential hypertension Hypercholesterolemia Pure hypercholesterolemia Elevated blood sugar Other abnormal glucose Sleep apnea, unspecified type Diabetes mellitus screening Screening for diabetes mellitus Gastroesophageal reflux disease without esophagitis Esophageal reflux Cervical spine pain Mild intermittent asthma without complication [facility]* Diagnosis Chronic bilateral low back pain without sciatica- Primary Essential hypertension Unspecified essential hypertension Hypercholesterolemia Pure hypercholesterolemia Gastroesophageal reflux disease without esophagitis Esophageal reflux Mild intermittent asthma without complication- Primary Essential hypertension Unspecified essential hypertension Hypercholesterolemia Pure hypercholesterolemia Gastroesophageal reflux disease without esophagitis Esophageal reflux Chronic bilateral low back pain without sciatica Edema, unspecified type- Primary Essential hypertension Unspecified essential hypertension Hypercholesterolemia Pure hypercholesterolemia Lumbar degenerative disc disease Gastroesophageal reflux disease without esophagitis Esophageal reflux NSAID long-term use Encounter for long-term (current) use of non-steroidal anti-inflammatories Puncture wound Open wound(s) (multiple) of unspecified site(s), without mention of complication History of CVA (cerebrovascular accident) Transient ischemic attack (TIA), and cerebral infarction without residual deficits Depression, unspecified depression type First degree atrioventricular block [facility]* Diagnosis Chronic bilateral low back pain without sciatica- Primary Essential hypertension Unspecified essential hypertension Hypercholesterolemia Pure hypercholesterolemia Gastroesophageal reflux disease without esophagitis Esophageal reflux Mild intermittent asthma without complication- Primary Essential hypertension Unspecified essential hypertension Hypercholesterolemia Pure hypercholesterolemia Gastroesophageal reflux disease without esophagitis Esophageal reflux Chronic bilateral low back pain without sciatica Essential hypertension Unspecified essential hypertension [facility] Diagnosis Chronic bilateral low back pain without sciatica- Primary Essential hypertension Unspecified essential hypertension Hypercholesterolemia Pure hypercholesterolemia Gastroesophageal reflux disease without esophagitis Esophageal reflux Mild intermittent asthma without complication- Primary Essential hypertension Unspecified essential hypertension Hypercholesterolemia Pure hypercholesterolemia Gastroesophageal reflux disease without esophagitis Esophageal reflux Chronic bilateral low back pain without sciatica Blood pressure check Screening for hypertension documented in this encounter [facility]* Diagnosis Chronic bilateral low back pain without sciatica- Primary Essential hypertension Unspecified essential hypertension Hypercholesterolemia Pure hypercholesterolemia Gastroesophageal reflux disease without esophagitis Esophageal reflux Mild intermittent asthma without complication- Primary Essential hypertension Unspecified essential hypertension Hypercholesterolemia Pure hypercholesterolemia Gastroesophageal reflux disease without esophagitis Esophageal reflux Chronic bilateral low back pain without sciatica Essential hypertension Unspecified essential hypertension [facility] Diagnosis Chronic bilateral low back pain without sciatica- Primary Essential hypertension Unspecified essential hypertension Hypercholesterolemia Pure hypercholesterolemia Gastroesophageal reflux disease without esophagitis Esophageal reflux Mild intermittent asthma without complication- Primary Essential hypertension Unspecified essential hypertension Hypercholesterolemia Pure hypercholesterolemia Gastroesophageal reflux disease without esophagitis Esophageal reflux Chronic bilateral low back pain without sciatica Hypercholesterolemia Pure hypercholesterolemia Essential hypertension Unspecified essential hypertension Gastroesophageal reflux disease without esophagitis Esophageal reflux [facility]* Diagnosis Chronic bilateral low back pain without sciatica- Primary Essential hypertension Unspecified essential hypertension Hypercholesterolemia Pure hypercholesterolemia Gastroesophageal reflux disease without esophagitis Esophageal reflux Mild intermittent asthma without complication- Primary Essential hypertension Unspecified essential hypertension Hypercholesterolemia Pure hypercholesterolemia Gastroesophageal reflux disease without esophagitis Esophageal reflux Chronic bilateral low back pain without sciatica Encounter for subsequent annual wellness visit (AWV) in Medicare patient- Primary Primary hypertension Unspecified essential hypertension Hypercholesterolemia Pure hypercholesterolemia Mild intermittent asthma without complication Gastroesophageal reflux disease without esophagitis Esophageal reflux History of CVA (cerebrovascular accident) Transient ischemic attack (TIA), and cerebral infarction without residual deficits Left ventricular diastolic dysfunction with preserved systolic function Routine general medical examination at health care facility Routine general medical examination at a health care facility [facility]ructions* Keven Stratton MD - 08/09/2021 [facility] Reason for referral (narrative)* Outpatient Procedure (Routine) - Closed Specialty Diagnoses / Procedures Referred By Annetta t Referred To Contact [facility] Diagnoses Diarrhea, unspecified type Elevated fecal calprotectin Procedures COLONOSCOPY DIAGNOSTIC COLONOSCOPY FLX DX W/COLLJ SPEC WHEN Belem Lewis PA-C [address] [place] [address] [facility] Disease [address] [address] Referral ID Status Reason Start Date Expiration Date V isits Requested Visits Authorized [id number] Closed Auto-Generate d Referral 12/26/2021 12/26/2022 1 [facility]No reason for referral information availableW[facility] Work Phone: [place] for visit Narrative* Outpatient Procedure (Routine) - Closed Specialty Diagnoses / Procedures Referred By Annetta hayes Referred To Contact [facility] Diagnoses Diarrhea, unspecified type Elevated fecal calprotectin Procedures COLONOSCOPY DIAGNOSTIC COLONOSCOPY FLX DX W/COLLJ SPEC WHEN Belem Lewis PA-C [address] [place] [address] [facility] Disease [address] [address] Referral ID Status Reason Start Date Expiration Date V isits Requested Visits Authorized [id number] Closed Auto-Generate d Referral 12/26/2021 12/26/2022 1 1 [facility] Reason for Referral Status Reason Specialty Diagnoses / Procedures Referre d By Contact Referred To Contact Closed Cardiology Diagnoses Shortness of breath Procedures ECHOCARDIOGRAM COMPLETE 2D W DOPPLER W COLOR Jhon Mcrae MD [address] [place] [address] [address] [place] [address] Assessments Diagnosis Shortness of breath Advance Directives Documents on File Type Date Recorded 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 ACP-Advance Directive ACP-Power of Traffic Controller [employer] Latest Code Status on File Code Status Date Activated Date Inactivated Comments Full Code 07/06/2017 6:31 AM 07/06/2017 11:01 AM Documents on File Type Date Recorded 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 ACP-Power of Traffic [employer] ACP-Advance Directive 08/30/2020 12:32 PM Living Will Latest Code Status on File Code Status Date Activated Date Inactivated Comments Full Code 07/06/2017 6:31 AM 07/06/2017 11:01 AM Documents on File Type Date Recorded 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 Advance Directive(s) 08/12/2021 11:28 AM Documents on File Type Date Recorded 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 Yes September 26, 2021 11:00am Summary Purpose Family History Relationship Condition Age at Onset Recorded Date/T rosibel brother History of heart bypass surgery Unknown Cardiac disease Unknown Cerebrovascular accident (CVA) Unknown Malignant neoplasm Unknown mother History of heart bypass surgery Unknown Hypertension Unknown father History of heart bypass surgery Unknown sister History of heart bypass surgery Unknown Chief Complaint and Reason for Visit Chief Complaint 6 M FU VIOLETTA Reason for Visit Asthma History of CVA (cerebrovascular accident) Obesity VIOLETTA (obstructive sleep apnea) Chief Complaint 1 Y FU 6 M FU VIOLETTA Reason for Visit ABRAHAM (dyspnea on exer tion) Essential hypertension History of CVA (cerebrovascular accident) Asthma VIOLETTA (obstructive sleep apnea) Chief Complaint Admit Date 1 Y FU November 21, 2024 10:31 am Reason for Visit Admit Date Essential hypertension November 21, 2024 10 :31am History of CVA (cerebrovascular accident ) November 21, 2024 10:31am Chief Complaint Admit Date 1 Y FU November 21, 2024 10:31 am SOB December 29, 2024 7: 49am Amb Documentation December 29, 2024 1: 12pm Reason for Visit Admit Date ABRAHAM (dyspnea on exertion) November 21, 2024 10:31am Essential hypertension November 21, 2024 10 :31am History of CVA (cerebrovascular accident ) November 21, 2024 10:31am Additional Source Comments INFORMATION SOURCE (unrecogn ized section and content) DATE CREATED AUTHOR 06/09/2020 [facility] DATE CREATED AUTHOR AUTHOR'S ORGANIZ ATION 08/12/[address] [facility] DATE CREATED AUTHOR AUTHOR'S ORGANIZ ATION 11/27/2021 [facility] DATE CREATED AUTHOR AUTHOR'S ORGANIZ ATION 02/16/2022 [facility] DATE CREATED AUTHOR AUTHOR'S ORGANIZ ATION 01/07/2025 [facility] DATE CREATED AUTHOR AUTHOR'S ORGANIZ ATION 03/27/[address] [facility] Scheduled Active and Recently Administ ered Medications (unrecognized section and content) Medication Order 08/07/2021 08/08/2021 08/09/2021 0.9 % sodium chloride bolus (COMPLETED) 500 mL (6.13 mL/kg), IntraVENous, at 247.9 mL/hr, Administer over 121 Minutes, ONCE, On Thu08/09/21 at 0900, For 1 dose 0917 (New Bag - Prov ider: Mare Joseph, RN)1112 (Patient Transferred to Other Facility - Provider: Mare Joseph RN) Care Teams (unrecognized sec tion and content) Loans Consultant Relationship Specialty Start Date End Date Chevy Matthew DO [address] [place] [address] PCP - General 11/04/14 Loans Consultant Relationship Specialty Start Date End Date Chevy Matthew DO [address] [place] [address] PCP - General 07/16/04 Loans Consultant Relationship Specialty Start Date End Date Chevy Matthew DO [address] [place] [address] PCP - General 07/16/04 Loans Consultant Relationship Specialty Start Date End Date Chevy Matthew DO [address] [place] [address] PCP - General 07/16/04 Loans Consultant Relationship Specialty Start Date End Date Chevy Matthew DO [address] [place] [address] PCP - General 07/16/04 Loans Consultant Relationship Specialty Start Date End Date Chevy Matthew DO [address] [place] [address] PCP - General 07/16/04 Team Status: Active Member Role Status Dates Dr. Chevy Matthew , DO Family Provider Active Dr. Chevy Matthew , DO Primary Care Provider Active Team Status: Inactive Member Role Status Dates Dr. Chevy Matthew , DO Primary Care Provider, Referrin g Provider Active Flavia Zaragoza JEWEL BEARING POLISHER, JEWEL BEARING POLISHER-C Attending Provider Active Team Status: Inactive Member Role Status Dates Dr. Chevy Matthew , DO Primary Care Provider Active Flavia Zaragoza JEWEL BEARING POLISHER, JEWEL BEARING POLISHER-C Attending Provider Active Team Status: Inactive Member Role Status Dates Dr. Chevy Matthew DO Primary Care Provider, Referrin g Provider Active Bailey Mcdonald JEWEL BEARING POLISHER, JEWEL BEARING POLISHER-C Attending Provider Active Team Status: Inactive Member Role Status Dates Dr. Chevy Matthew DO Primary Care Provider, Referrin g Provider Active Dr. Esau Ghotra , DO Attending Provider Active Team Status: Inactive Member Role Status Dates Dr. Chevy Matthew , DO Primary Care Provider Active Dr. Esau Ghotra , DO Attending Provider, Referring Pro vider Active Loans Consultant Relationship Specialty Start Date End Date CheloRamin, DO [address] [place] [address] PCP - General Family Medicine 12/29/22 Loans Consultant Relationship Specialty Start Date End Date Chelo Ramin Warren, DO [address] [place] [address] PCP - General Family Medicine 12/29/22 Loans Consultant Relationship Specialty Start Date End Date Chelo Ramin Warren DO [address] [facility] [address] [place] [phone] PCP - General Family Medicine 12/29/22 Loans Consultant Relationship Specialty Start Date End Date Ramin Whitney DO [address] [place] [phone] PCP - General Family Medicine 12/29/22 Loans Consultant Relationship Specialty Start Date End Date Ramin Whitney DO [address] [place] [phone] PCP - General Family Medicine 12/29/22 Loans Consultant Relationship Specialty Start Date End Date Ramin Whitney DO [address] [place] [phone] PCP - General Family Medicine 12/29/22 Loans Consultant Relationship Specialty Start Date End Date Ramin Whitney DO [address] [place] [phone] PCP - General Family Medicine 12/29/22 Loans Consultant Relationship Specialty Start Date End Date Ramin Whitney DO [address] [place] [phone] PCP - General Family Medicine 12/29/22 Loans Consultant Relationship Specialty Start Date End Date Chevy Matthew DO [address] [place] [id number] PCP - General 10/16/18 Loans Consultant Relationship Specialty Start Date End Date Ramin Whitney DO [address] [place] [phone] PCP - General Family Medicine 12/29/22 Loans Consultant Relationship Specialty Start Date End Date Ramin Whitney DO [address] [place] [address] PCP - General Family Medicine 12/29/22 Loans Consultant Relationship Specialty Start Date End Date Ramin Whitney DO [address] [place] [address] PCP - General Family Medicine 12/29/22 Loans Consultant Relationship Specialty Start Date End Date Ramin Whitney, DO [address] [place] [address] PCP - General Family Medicine 12/29/22 Loans Consultant Relationship Specialty Start Date End Date Ramin Whitney, DO [address] [place] [address] PCP - General Family Medicine 12/29/22 Team Status: Active Member Role/Relationship Status Dates Dr. Chevy Matthew DO Family Provider Active Dr. Chevy Matthew DO Primary Care Provider Active Team Status: Inactive Member Role/Relationship Status Dates Dr. Chevy Matthew DO Primary Care Provider Active Start: November 21, 2024 End: November 21, 2024 Dr. Chevy Matthew DO Referring Provider Active Start: November 21, 2024 End: November 21, 2024 Bailey Mcdonald JEWEL BEARING POLISHER, JEWEL BEARING POLISHER-C Attending Provider Active Start: November 21, 2024 End: November 21, 2024 Team Status: Active Member Role/Relationship Status Dates Dr. Chevy Matthew DO Primary Care Provider Active Team Status: Inactive Member Role/Relationship Status Dates Dr. Chevy Matthew DO Primary Care Provider Active Start: December 29, 2024 End: December 29, 2024 Bailey Mcdonald NP, JEWEL BEARING POLISHER-C Attending Provider Active Start: December 29, 2024 End: December 29, 2024 Bailey Mcdonald JEWEL BEARING POLISHER, JEWEL BEARING POLISHER-C Referring Provider Active Start: December 29, 2024 End: December 29, 2024 Team Status: Active Member Role/Relationship Status Dates Dr. Chevy Matthew DO Primary Care Provider Active Start: December 29, 2024 Dr. Bernardino Mclean MD Attending Provider Active S tart: December 29, 2024 Team Status: Active Member Role/Relationship Status Dates Dr. Chevy Matthew DO Primary Care Provider Active Start: December 29, 2024 Bailey Mcdonald JEWEL BEARING POLISHER, JEWEL BEARING POLISHER-C Attending Provider Active Start: December 29, 2024 Loans Consultant Relationship Specialty Start Date End Date Ramin Whitney DO [address] [place] [address] PCP - General Family Medicine 12/29/22 Loans Consultant Relationship Specialty Start Date End Date Ramin Whitney DO [address] [place] [address] PCP - General Family Medicine 12/29/22 Source Comments (unrecognize d section and content) In the event this informatio n is protected by the Federal Confidentiality of Alcohol and Drug Abuse Patient Records regulations: The Federal rules restrict any use of the information to criminally investigate or prosecute any alcohol or drug abuse patient.[facility] the event this information is protected by the Federal Confidentiality of Alcohol and Drug Abuse Patient Records regulations: The Federal rules restrict any use of the information to criminally investigate or prosecute any alcohol or drug abuse patient.[facility] the event this information is protected by the Federal Confidentiality of Alcohol and Drug Abuse Patient Records regulations: The Federal rules restrict any use of the information to criminally investigate or prosecute any alcohol or drug abuse patient.[facility] the event this information is protected by the Federal Confidentiality of Alcohol and Drug Abuse Patient Records regulations: The Federal rules restrict any use of the information to criminally investigate or prosecute any alcohol or drug abuse patient.[facility] the event this information is protected by the Federal Confidentiality of Alcohol and Drug Abuse Patient Records regulations: The Federal rules restrict any use of the information to criminally investigate or prosecute any alcohol or drug abuse patient.[facility] the event this information is protected by the Federal Confidentiality of Alcohol and Drug Abuse Patient Records regulations: The Federal rules restrict any use of the information to criminally investigate or prosecute any alcohol or drug abuse patient.[facility] the event this information is protected by the Federal Confidentiality of Alcohol and Drug Abuse Patient Records regulations: The Federal rules restrict any use of the information to criminally investigate or prosecute any alcohol or drug abuse patient.[facility] Reason for Visit (unrecogniz ed section and content) Reason Comments Follow Up Phone Call Post Discharge F/U attempt made. No answer. Reason Comments Follow Up Phone Call [facility] Follow Up Call Reason Comments Pancreatic Mass Reason Comments Diarrhea Explosive and watery since Sat. Labs 09/24/21 ERCP 08/12/21 Reason Comments Results Reason Comments Follow-up 6 month Reason Comments Follow-up Med check Reason Comments Follow-up Med check Reason Onset Date Comments Med Refill 11/03/2023 Reason Comments Medicare Annual Wellness Visit Subsequen t Flu Vaccine Patient has agreed t o receive influenza vaccine in the office today. Reason Comments Follow-up 6 month med check Reason Comments Blood Pressure Check Reason Comments Med Refill Reason Onset Date Comments Med Refill 01/13/2025 Reason Comments Medicare Annual Wellness Visit Subsequen t Patient agreeable to have Sebas Silvestre PA-C shadow Dr. Ramin Whitney for their scheduled visit Goals (unrecognized section and content) Goals may be documented in a n alternate sectionGoals may be documented in an alternate sectionGoals may be documented in an alternate sectionGoals may be documented in an alternate section FOR RECORDS PERTAINING TO PATIENTS WHO ARE OR HAVE BEEN ENROLLED IN A CHEMICAL DEPENDENCY/SUBSTANCEABUSE PROGRAM, SOME INFORMATION MAY BE OMITTED. This clinical summary was aggregated from multiple sources. Caution should be exercised in using it in the provision of clinical care. This summary normalizes information from multiple sources, and as a consequence, information in this document may materially change the coding, format and clinical context of patient data. In addition, data may be omitted in some cases. CLINICAL DECISIONS SHOULD BE BASED ON THE PRIMARY CLINICAL RECORDS. [facility]. provides no warranty or guarantee of the accuracy or completeness of information in this document.
[2025-03-29 20:32] LABS: CRP 43.60 mg/L (0.0-3.0)
[2025-03-29] MEDS: 0.9% Saline Lock 10 ML Syringe IV (21:31)
[2025-03-29] MEDS: Psyllium 1 PACKET PO (23:34)
[2025-03-29] MEDS: 0.9% Normal Saline (1000mL) 1,000 ML 100 ML IV (23:35)
[2025-03-30 03:47] VITALS: BP 148/64; PULSE 65; RESP 16; TEMP 36.4; O2SAT 99
[2025-03-30 07:16] LABS: Hematocrit 34.4 % (37-47); Hemoglobin 11.2 g/dL (12.0-15.0); Immature Granulocytes Count 0.020 X10^3/uL (0.0-0.0); Mean Corp Hgb Conc 32.6 g/dL (32-36); Mean Corpuscular Volume 91.2 fL (81-99); Mean Platelet Vol. 9.5 fl (6.2-12.0); NRBC Flagged by Analyzer 0 % (0-5); Platelet Count 181 K/mm3 (150-450); RBC Distribution Width CV 13.9 % (11.6-14.6); RBC Distribution Width SD 47.0 fl (35.1-43.9); Red Blood Count 3.77 M/mm3 (4.2-5.4); White Blood Count 6.9 K/mm3 (4.4-11.0)
[2025-03-30 07:56] LABS: AST(SGOT) 24 U/L (<=31); Alanine Aminotransfer ALT/SGPT 14 U/L (<=34); Albumin, Serum 3.6 g/dL (3.4-4.8); Alkaline Phosphatase 77 U/L (35-104); Anion Gap 8 (5-15); BUN 15 mg/dL (4-19); BUN/Creat Ratio 17.5 RATIO (10-20); Calcium,Total 8.4 mg/dL (7.6-11.0); Carbon Dioxide 24.3 mmol/L (21.0-32.0); Chloride 108 mmol/L (98-108); Estimated Creatinine Clearance 52.02 ml/min (50-250); Globulin 2.5 g/dL (2.2-4.2); Glucose 94 mg/dL (70-99); Potassium 3.4 mmol/L (3.3-5.1)
[2025-03-30 09:00] VITALS: BP 148/51; PULSE 63; RESP 16; RESP 18; TEMP 36.3; O2SAT 98
--- NOTE | 2025-03-30 09:25 | PCM.PN.HOSP ---
Subjective Subjective Doing well, no abdominal pain still having diarrhea Objective Data Objective Data Vital Signs: Vital Signs Temp Pulse Resp BP Pulse Ox O2 Del Method 97.5 F L 65 16 148/64 H 99 Room Air 03/30/25 03:47 03/30/25 03:47 03/30/25 03:47 03/30/25 03:47 03/30/25 03:47 03/30/25 03:47 Oxygen Delivery Method Room Air Weight: 162 lb Body Mass Index (BMI) 29.6 Intake & Output: Intake and Output for Last 24 Hours 03/29/25 03/30/25 03/31/25 03:59 03:59 03:59 Intake Total 2450.00 / 2450.00 730 / 730 Balance 2450.00 / 2450.00 730 / 730 Lab / Micro Data 03/30/25 06:41 03/30/25 06:41 Labs: Laboratory Results - last 24 hr 03/29/25 10:56: WBC 11.3 H, RBC 4.43, Hgb 13.0, Hct 41.2, MCV 93.0, MCH 29.3, MCHC 31.6 L, RDW Std Deviation 46.8 H, RDW Coeff of Justin 13.8, Plt Count 216, MPV 9.2, Immature Gran % (Auto) 0.300, Neut % (Auto) 76.5 H, Lymph % (Auto) 12.5 L, [place] % (Auto) 8.5, Eos % (Auto) 1.6, Baso % (Auto) 0.6, Absolute Neuts (auto) 8.7 H, Absolute Lymphs (auto) 1.41, Nucleated RBC % 0, Sodium Cancelled, Potassium Cancelled, Chloride Cancelled, Carbon Dioxide Cancelled, Anion Gap Cancelled, BUN Cancelled, Creatinine Cancelled, Estim Creat Clear Calc Cancelled, Est GFR (MDRD) Non-Af Cancelled, BUN/Creatinine Ratio Cancelled, Glucose Cancelled, Lactic Acid 1.1, Calcium Cancelled, Magnesium Cancelled, Total Bilirubin Cancelled, AST Cancelled, ALT Cancelled, Alkaline Phosphatase Cancelled, Total Protein Cancelled, Albumin Cancelled, Globulin Cancelled, Albumin/Globulin Ratio Cancelled, Lipase Cancelled 03/29/25 12:32: Sodium 137, Potassium 4.6, Chloride 103, Carbon Dioxide 23.4, Anion Gap 11, BUN 20 H, Creatinine 0.83, Estim Creat Clear Calc 53.01, Est GFR (MDRD) Non-Af 73, BUN/Creatinine Ratio 24.2 H, Glucose 101 H, Calcium 8.5, Magnesium 1.7, Total Bilirubin 0.99, AST 46 H, ALT 17, Alkaline Phosphatase 89, Total Protein 6.8, Albumin 3.9, Globulin 2.9, Albumin/Globulin Ratio 1.3, Lipase 10 L, Urine Color Yellow, Urine Clarity Sl. Cloudy, Urine pH 6.0, Ur Specific [place] 1.005, Urine Protein 15 H, Urine Glucose (UA) Normal, Urine Ketones Negative, Urine Occult Blood 10 H, Urine Nitrite Negative, Urine Bilirubin Negative, Urine Urobilinogen Normal, Ur Leukocyte Esterase 500 H, Urine RBC 0 SEEN, Urine WBC 5-10 SEEN, Ur Squamous Epith Cells 0 SEEN, Urine Bacteria 2+, Urine Mucus 0 SEEN 03/29/25 19:45: ESR 19, C-React Prot Ext Range 43.60 H, YADIRA-1 Antibody TNP, Sm (Avalos) Antibody TNP, INTERLOCKING TOWER OPERATOR Antibody TNP, Scl-70 Scleroderma Ab TNP, Antichromatin Antibodies TNP, Centromere B Antibody TNP 03/30/25 06:41: WBC 6.9, RBC 3.77 L, Hgb 11.2 L, Hct 34.4 L, MCV 91.2, MCH 29.7, MCHC 32.6, RDW Std Deviation 47.0 H, RDW Coeff of Justin 13.9, Plt Count 181, MPV 9.5, Immature Gran % (Auto) 0.300, Neut % (Auto) 59.9, Lymph % (Auto) 25.6, [place] % (Auto) 10.0, Eos % (Auto) 3.9, Baso % (Auto) 0.3, Absolute Neuts (auto) 4.1, Absolute Lymphs (auto) 1.77, Nucleated RBC % 0, Sodium 140, Potassium 3.4, Chloride 108, Carbon Dioxide 24.3, Anion Gap 8, BUN 15, Creatinine 0.85, Estim Creat Clear Calc 52.02, Est GFR (MDRD) Non-Af 70, BUN/Creatinine Ratio 17.5, Glucose 94, Calcium 8.4, Total Bilirubin 0.91, AST 24, ALT 14, Alkaline Phosphatase 77, Total Protein 6.1, Albumin 3.6, Globulin 2.5, Albumin/Globulin Ratio 1.4 Micro: Microbiology 03/29/25 10:56 Stool Stool Lactoferrin - Final 03/29/25 10:56 Stool Enteric Bacteriology - Final 03/29/25 10:56 Stool Clostridioides difficile (PCR) - Final 03/29/25 10:56 Stool Stool Occult Blood (DESIRE) - Final Occult Blood Positive Radiography Diagnostic Testing: Radiology Impression Abdomen/Pelvis CT 03/29/25 11:25 IMPRESSION: 1. Cholecystectomy. Abnormal appearance of the bile ducts. Consider cholangitis. No choledocholithiasis. There is some sludge distally. No mass of the pancreatic head or ampulla. 2. Diarrheal state. Mild hyperenhancement of bowel wall. Qualitative thickening of the sigmoid colon may be from underdistention. A background colitis should be considered. Given a colitis and biliary cholangitis, consider ulcerative colitis. No stricture or obstruction seen. 3. Severe atherosclerosis of the aorta without aneurysm. 4. Benign bilateral simple renal cysts. Bosniak 1. Benign, stable hemorrhagic or proteinaceous type cyst left upper pole. Bosniak 2. No follow-up required. Reading Location: [id number] Gallbladder Ultrasound 03/29/25 12:36 IMPRESSION: 1. Cholecystectomy 2. Dilation of the common bile duct may be related to patient age and cholecystectomy status (reservoir effect). Review of CT showed features of cholangitis. Correlate with laboratory indices; no site of obstruction on the CT of the same day. 3. Diffuse hepatocellular disease. Consider mild fatty infiltration. Reading Location: [id number] MRCP 03/30/25 18:29 IMPRESSION: 1. Mild, smooth central intrahepatic duct dilation. Dilated bile duct. No mass of the ampulla or pancreatic head. Small filling defect in the common bile duct likely some sludge. Correlate with the recent CT scan. 2. Mild dilation pancreatic duct near the pancreatic head. No mass. Consider ERCP if appropriate. 3. Simple left renal cysts. Bosniak 1. Hemorrhagic cyst left upper pole. Stable and benign. Bosniak 2. No follow-up required. Reading Location: [facility] Physical Exam Narrative General: Alert, Oriented x3, Cooperative, No apparent distress HEENT: Atraumatic, PERRLA, EOMI, Normocephalic Oral: Dry mucosa Neck: Supple, No JVD Lungs: Diminished, Normal air movement, No rhonchi, No wheeze, No rales Cardiovascular: Regular rate, Regular Rhythm, Normal S1, Normal S2, No murmurs Abdomen: Soft, Non Tender, Non-Distended, No Hepato-splenomegaly Extremities: No edema, Capillary Refill Less than 3 Seconds Skin: No rashes, No breakdown Musculoskeletal: No Tenderness to Palpation of Joints or Extremities Neurological: No focal neurological deficits, moves all extremities Psych/Mental Status: Normal Affect, Appropriate Assessment & Plan Assessment/Plan (1) Diarrhea: PLAN: Plan 1. Diarrhea with possible colitis ? Will provide for full liquid diet and IV fluids that she does not have significant findings of dehydration on lab work ? CMP demonstrates benign biliary etiology as bilirubin and LFTs are exceedingly normal, CBC shows a slight hemodilution drop in her hemoglobin but her white count has returned to normal this was after a single dose of Zosyn ? She did have a benign stricture leading to obstructive symptoms in 2021 however bilirubin and LFTs are currently normal ? Since she is still having multiple episodes of diarrhea may benefit from Zosyn given some of the mild findings on CT scan with possible colitis ? Her Hemoccult on admission was positive however she has significant diarrhea and her hemoglobin is normal 2. Essential HTN/HLD/history of CVA ? Continue with Lipitor ? Continue with her blood pressure medications ? Monitor make adjustments as necessary ? Continue with aspirin 3. GERD ? Stable ? Continue with PPI DVT: Lovenox Charges/Coding Visit Charges Inpatient E&M: 77720 Subs Hosp L2
[2025-03-30 10:08] VITALS: PULSE 63
[2025-03-30] MEDS: Aspirin E.C. 81 MG Tablet PO (10:08)
[2025-03-30] MEDS: Psyllium 1 PACKET PO (10:10)
[2025-03-30] MEDS: Piperacil/Tazobactam 3.375 GM in 0.9% Normal Saline (50mL MB+) 50 ML IV (10:17)
--- NOTE | 2025-03-30 14:07 | CASEMGMT ---
BROOKS Met with patient to complete BROOKS form. BROOKS form and its content were verbally explained and patient's questions were answered to the best of my ability.? Patient voiced understanding and signed BROOKS form.? Patient provided a copy of signed BROOKS form and original placed in patient's chart.? Patient had no further questions. Nickie Ridley, Discharge Planning Ass
--- NOTE | 2025-03-30 14:25 | DCINST_ITS ---
Discharge Instructions DC O2, CPAP, BIPAP needs Home O2 Discharge instructions: No Dressing / Incision Discharge Activity: Return to Normal Activity Dressing / Incision Call your doctor if you observe: Fever of 101 or Higher, Shortness of breath, Dizziness, Fainting spells, Swelling in the ankles, Chest pain and Increased palpitations (irregular heartbeat) Follow Up Care Test Results: Test results from this visit will be discussed in further detail at your follow- up appointment, if applicable. Discharge Plan Admission Admit Date/Time: 03/29/25 13:48 Attending Provider: Joe Banda Primary Care Provider: Chevy Matthew Discharge Orders/Prescriptions Prescriptions: New cholestyramine (with sugar) 4 gram Powder In Packet 1 ea PO BIDAC 30 Days Qty: 60 0RF loperamide 2 mg Capsule 2 mg PO Q4H PRN PRN (Reason: Diarrhea/Loose Stools) 5 Days Qty: 10 0RF amoxicillin-pot clavulanate 875-125 mg tablet 1 tab PO BID 7 Days Qty: 14 0RF Continued omeprazole 20 mg capsule,delayed release(DR/EC) 20 mg PO DAILY omega-3 fatty acids [Fish Oil Concentrate] 1,000 mg capsule 2,000 mg PO DAILY pyridoxine (vitamin B6) 100 mg tablet 100 mg PO DAILY cholecalciferol (vitamin D3) 10 mcg (400 unit) capsule 600 unit PO DAILY ascorbate calcium (vitamin C) 500 mg capsule 1 g PO DAILY aspirin [Adult Aspirin Regimen] 81 mg tablet,delayed release (DR/EC) 81 mg PO DAILY acetaminophen [8HR Muscle Aches-Pain] 650 mg tablet extended release 650 mg PO BID biotin 10,000 mcg capsule 10,000 mcg PO DAILY montelukast 10 mg tablet 10 mg PO DAILY hydrochlorothiazide 12.5 mg tablet 12.5 mg PO QDAY losartan 50 mg tablet 50 mg PO BID atorvastatin 80 MG tablet 80 mg PO QHS Rx Instructions: cholesterol metoprolol tartrate 50 MG tablet 50 mg PO BID Rx Instructions: BP (DME) Oral appliance See Rx Instructions .ROUTE .MEDSUPPLY Qty: 1 0RF Rx Instructions: As directed Referrals / Follow Up: Chevy Matthew DO [Primary Care Provider, Medical] - Within 1 Week FriendHeron DO [Med Staff - Active Staff, Gastroenterology] - Within 2 Weeks Disposition Disposition (needs filled in before D/C Order can be placed): Home, Self Care
[2025-03-30 15:46] VITALS: BP 161/64; PULSE 70; RESP 18; TEMP 37; O2SAT 98
--- NOTE | 2025-03-30 15:53 | PHA.DC.COU.R ---
Pharmacy [facility] has performed discharge medication counseling for this patient. The patient was counseled on the following discharge medications and changes in medications for homegoing review. - Augmentin 875/125 mg tablet, Cholestyramine 4 gram packet, Loperamide 2 mg capsule The Reason for Use, instructions for use, and potential side effects were reviewed for all new medications. The patient's questions regarding all of their medications were answered. The patient was able to verbally demonstrate an understanding of their discharge medications. Medications at Discharge Home Medications atorvastatin 80 mg tablet 80 mg PO QHS HYPERLIPIDEMIA 09/07/17 metoprolol tartrate 50 mg tablet 50 mg PO BID BLOOD PRESSURE 09/07/17 omeprazole 20 mg capsule,delayed release 20 mg PO DAILY ACID REFLUX 10/23/21 pyridoxine (vitamin B6) 100 mg tablet 100 mg PO DAILY 10/23/21 aspirin 81 mg tablet,delayed release (Adult Aspirin Regimen) 81 mg PO DAILY 04/25/22 Oral appliance #1 ea 07/18/22 montelukast 10 mg tablet 10 mg PO DAILY 10/26/23 acetaminophen 650 mg tablet,extended release (8HR Muscle Aches-Pain) 650 mg PO BID 11/17/23 ascorbate calcium (vitamin C) 500 mg capsule 1 g PO DAILY 11/17/23 biotin 10,000 mcg capsule 10,000 mcg PO DAILY 11/17/23 cholecalciferol (vitamin D3) 10 mcg (400 unit) capsule 600 unit PO DAILY 11/17/23 omega-3 fatty acids 1,000 mg capsule (Fish Oil Concentrate) 2,000 mg PO DAILY SUPPLEMENT 11/17/23 hydrochlorothiazide 12.5 mg tablet 12.5 mg PO QDAY 11/21/24 losartan 50 mg tablet 50 mg PO BID 11/21/24 amoxicillin 875 mg-potassium clavulanate 125 mg tablet 1 tab PO BID 7 days #14 tabs 03/30/25 cholestyramine (with sugar) 4 gram powder for susp in a packet 1 ea PO BIDAC 30 days #60 ea 03/30/25 loperamide 2 mg capsule 2 mg PO Q4H PRN PRN Diarrhea/Loose Stools 5 days #10 caps 03/30/25
--- NOTE | 2025-03-30 16:31 | DS.PCM_ITS ---
Providers Date of Admission: 03/29/25 Primary Care Physician: Dr. Chevy Matthew DO Reason For Visit: diarrhea Diagnosis Discharge Diagnosis (1) Diarrhea: Status: Acute Code(s): R19.7 - Diarrhea, unspecified Medications at Discharge Home Medications atorvastatin 80 mg tablet 80 mg PO QHS HYPERLIPIDEMIA 09/07/17 metoprolol tartrate 50 mg tablet 50 mg PO BID BLOOD PRESSURE 09/07/17 omeprazole 20 mg capsule,delayed release 20 mg PO DAILY ACID REFLUX 10/23/21 pyridoxine (vitamin B6) 100 mg tablet 100 mg PO DAILY 10/23/21 aspirin 81 mg tablet,delayed release (Adult Aspirin Regimen) 81 mg PO DAILY 04/25/22 Oral appliance #1 ea 07/18/22 montelukast 10 mg tablet 10 mg PO DAILY 10/26/23 acetaminophen 650 mg tablet,extended release (8HR Muscle Aches-Pain) 650 mg PO BID 11/17/23 ascorbate calcium (vitamin C) 500 mg capsule 1 g PO DAILY 11/17/23 biotin 10,000 mcg capsule 10,000 mcg PO DAILY 11/17/23 cholecalciferol (vitamin D3) 10 mcg (400 unit) capsule 600 unit PO DAILY 11/17/23 omega-3 fatty acids 1,000 mg capsule (Fish Oil Concentrate) 2,000 mg PO DAILY SUPPLEMENT 11/17/23 hydrochlorothiazide 12.5 mg tablet 12.5 mg PO QDAY 11/21/24 losartan 50 mg tablet 50 mg PO BID 11/21/24 amoxicillin 875 mg-potassium clavulanate 125 mg tablet 1 tab PO BID 7 days #14 tabs 03/30/25 cholestyramine (with sugar) 4 gram powder for susp in a packet 1 ea PO BIDAC 30 days #60 ea 03/30/25 loperamide 2 mg capsule 2 mg PO Q4H PRN PRN Diarrhea/Loose Stools 5 days #10 caps 03/30/25 Hospital Course Operations None Procedures None Summary of Care Provided Minutes Spent on Discharge: 34 Hospital Course: Per HPI: TORSTEN TORRES, is a 79 F who presents to the hospital with diarrhea since Thursday. She says she had an odd ham sandwich that she threw away does not think she can think of that she had. No nausea or vomiting just diarrhea. She has not noticed any blood in her stools. She denies any abdominal pain and no specific right upper quadrant pain. I do feel that the CT of her abdomen and pelvis calling cholangitis is an over read as she has no fevers and there is no elevation in her bilirubin or LFTs at this time we will recheck in the morning. Gallbladder ultrasound is more consistent with chronic postcholecystectomy findings. Fecal occult was positive for blood however given the significant diarrhea she has been having this is to be expected hemoglobin is not anemic therefore will not pursue further. And her fecal occult studies are negative for enteric pathogen's or C. difficile though she does have a positive stool lactoferrin. Hospital Course: 1. Diarrhea due to possible colitis with concerns for primary sclerosing cholangitis?79-year-old female developed diarrhea on Thursday after eating a questionable ham sandwich. Since then she has been having frequent episodes of diarrhea but denies any fevers, nausea, vomiting, right upper quadrant abdominal pain or any generalized abdominal pain. She was admitted from the emergency room because of concerns for the CT scan demonstrating cholangitis despite the lack of any other signs or symptoms, gallbladder ultrasound was unremarkable and benign. She denies any obvious blood in her stool though she did have a positive Hemoccult which was fairly insignificant secondary to her lack of anemia on admission with her hemoglobin being over 13. She did receive IV fluids and gastroenterology was consulted in the emergency room. They performed multiple autoimmune tests but in discussion today on the day of discharge did not feel any further interventions were necessary, the MRCP showed possibly some biliary sludge but did not demonstrate a mass at the ampulla or the pancreatic head. She may need an ERCP as an outpatient pending the results of her autoimmune workup. In the meantime her ESR was normal but her CRP was elevated and therefore I did elect to finally treat her with antibiotics and she went home with 7 days of Augmentin. Gastroenterology had started her on cholestyramine and she was started on Imodium overnight since her infectious workups were negative for C. difficile or any other enteric pathology. I discussed with her the possibility for discharge and she expressed understanding of the risks and benefits of going home and is okay with going home today. I do recommend following up with gastroenterology as an outpatient and we discussed indications to come back to the hospital I do recommend that she continue with hydration and have food be secondary as she states that every time she eats she has an episode of diarrhea. Hopefully with antibiotics and the cholestyramine and Imodium this will improve quickly. 2. Essential hypertension, hyperlipidemia, history of CVA, GERD are all chronic medical conditions which complicate her care. Her home medications were continued where appropriate. Weight / BMI Weight Weight: 162 lb Body Mass Index (BMI) 29.6 ABG / Lab / Microbiology Data 03/30/25 06:41 03/30/25 06:41 Laboratory: Laboratory Results - last 24 hr 03/29/25 19:45: ESR 19, C-React Prot Ext Range 43.60 H, YADIRA-1 Antibody TNP, Sm (Avalos) Antibody TNP, CANVAS GOODS SUPERVISOR Antibody TNP, Scl-70 Scleroderma Ab TNP, Antichromatin Antibodies TNP, Centromere B Antibody TNP 03/30/25 06:41: WBC 6.9, RBC 3.77 L, Hgb 11.2 L, Hct 34.4 L, MCV 91.2, MCH 29.7, MCHC 32.6, RDW Std Deviation 47.0 H, RDW Coeff of Justin 13.9, Plt Count 181, MPV 9.5, Immature Gran % (Auto) 0.300, Neut % (Auto) 59.9, Lymph % (Auto) 25.6, [place] % (Auto) 10.0, Eos % (Auto) 3.9, Baso % (Auto) 0.3, Absolute Neuts (auto) 4.1, Absolute Lymphs (auto) 1.77, Nucleated RBC % 0, Sodium 140, Potassium 3.4, Chloride 108, Carbon Dioxide 24.3, Anion Gap 8, BUN 15, Creatinine 0.85, Estim Creat Clear Calc 52.02, Est GFR (MDRD) Non-Af 70, BUN/Creatinine Ratio 17.5, Glucose 94, Calcium 8.4, Total Bilirubin 0.91, AST 24, ALT 14, Alkaline Phosphatase 77, Total Protein 6.1, Albumin 3.6, Globulin 2.5, Albumin/Globulin Ratio 1.4 Microbiology: Microbiology 03/29/25 12:32 Urine, Random Urine Culture - Preliminary GNR lactose hand straightener Gram negative joel 03/29/25 10:56 Stool Stool Lactoferrin - Final 03/29/25 10:56 Stool Enteric Bacteriology - Final 03/29/25 10:56 Stool Clostridioides difficile (PCR) - Final 03/29/25 10:56 Stool Stool Occult Blood (DESIRE) - Final Occult Blood Positive Radiography Diagnostic Testing: Radiology Impression MRCP 03/30/25 18:29 IMPRESSION: 1. Mild, smooth central intrahepatic duct dilation. Dilated bile duct. No mass of the ampulla or pancreatic head. Small filling defect in the common bile duct likely some sludge. Correlate with the recent CT scan. 2. Mild dilation pancreatic duct near the pancreatic head. No mass. Consider ERCP if appropriate. 3. Simple left renal cysts. Bosniak 1. Hemorrhagic cyst left upper pole. Stable and benign. Bosniak 2. No follow-up required. Reading Location: [id number] D/C Instructions Call your doctor if you observe: Fever of 101 or Higher, Shortness of breath, Dizziness, Fainting spells, Swelling in the ankles, Chest pain and Increased palpitations (irregular heartbeat) DC O2, CPAP, BIPAP Needs Home O2 Discharge instructions: No Meaningful Use Info Meaningful Use Meaningful Use Diagnoses (Choose all that apply): None applicable Discharge Plan Admission Admit Date/Time: 03/29/25 13:48 Attending Provider: Joe Banda Primary Care Provider: Chevy Matthew Discharge Orders/Prescriptions Prescriptions: New cholestyramine (with sugar) 4 gram Powder In Packet 1 ea PO BIDAC 30 Days Qty: 60 0RF loperamide 2 mg Capsule 2 mg PO Q4H PRN PRN (Reason: Diarrhea/Loose Stools) 5 Days Qty: 10 0RF amoxicillin-pot clavulanate 875-125 mg tablet 1 tab PO BID 7 Days Qty: 14 0RF Continued omeprazole 20 mg capsule,delayed release(DR/EC) 20 mg PO DAILY omega-3 fatty acids [Fish Oil Concentrate] 1,000 mg capsule 2,000 mg PO DAILY pyridoxine (vitamin B6) 100 mg tablet 100 mg PO DAILY cholecalciferol (vitamin D3) 10 mcg (400 unit) capsule 600 unit PO DAILY ascorbate calcium (vitamin C) 500 mg capsule 1 g PO DAILY aspirin [Adult Aspirin Regimen] 81 mg tablet,delayed release (DR/EC) 81 mg PO DAILY acetaminophen [8HR Muscle Aches-Pain] 650 mg tablet extended release 650 mg PO BID biotin 10,000 mcg capsule 10,000 mcg PO DAILY montelukast 10 mg tablet 10 mg PO DAILY hydrochlorothiazide 12.5 mg tablet 12.5 mg PO QDAY losartan 50 mg tablet 50 mg PO BID atorvastatin 80 MG tablet 80 mg PO QHS Rx Instructions: cholesterol metoprolol tartrate 50 MG tablet 50 mg PO BID Rx Instructions: BP (DME) Oral appliance See Rx Instructions .ROUTE .MEDSUPPLY Qty: 1 0RF Rx Instructions: As directed Referrals / Follow Up: Chevy Matthew DO [Primary Care Provider, Medical] - Within 1 Week FriendHeron DO [Med Staff - Active Staff, Gastroenterology] - Within 2 Weeks Disposition Disposition (needs filled in before D/C Order can be placed): Home, Self Care Charges/Coding Visit Charges Inpatient E&M: 77058 Disch Hosp >30min
--- NOTE | 2025-03-30 18:29 | MRI_ITS ---
PROCEDURE: MRCP ABDOMEN WITHOUT CONTRAST 03/30/2025 REASON FOR EXAM: PRIMARY SCLEROSING CHOLANGITIS TECHNIQUE: Procedure Code: MRIMRCP Modality: MR Procedure: MRCP ABDOMEN WITHOUT CONTRAST Multiplanar and multisequence images were obtained. CONTRAST: None COMPARISON: March 29, 2025, August 08, 2021 FINDINGS: Liver: Partially imaged. Non cirrhotic. No architectural distortion. No mass. Sensitivity for mass is decreased without IV contrast. Biliary: Contrast-enhancement can not be assessed. Cholecystectomy. Smooth central intrahepatic duct dilation. The common hepatic duct is dilated 10.8 mm. Gentle tapering of the bile duct towards the ampulla is seen. No mass seen near the ampulla or pancreatic head. Linear filling defect is likely some sludge in the lumen of the common bile duct. Pancreas: No glandular atrophy. Mild dilation of the main pancreatic duct near the pancreatic head. More distally it is normal caliber. No mass. Spleen: Normal Adrenals: Normal Kidneys: Cyst at the anterior left upper pole shown on prior CT represents a hemorrhagic cyst with T2 shortening. Simple cyst left upper pole, posterior left midpole and posterior left lower pole measure less than 1.5 cm. These are benign. Peritoneum / Retroperitoneum: No free air. No mass. No lymphadenopathy. Lymph Nodes: None appear enlarged Major Vessels: Atherosclerotic plaque better seen on CT. No aneurysm. Bones: Curvature lumbar spine to the right. MRI/MRCP Abdomen without Contrast IMPRESSION: 1. Mild, smooth central intrahepatic duct dilation. Dilated bile duct. No ma ss of the ampulla or pancreatic head. Small filling defect in the common bile duct likely some sludge. Correlate with the recent CT scan. 2. Mild dilation pancreatic duct near the pancreatic head. No mass. Consider ERCP if appropriate. 3. Simple left renal cysts. Bosniak 1. Hemorrhagic cyst left upper pole. St able and benign. Bosniak 2. No follow-up required. Reading Location: [id number]
[2025-03-31 13:08] LABS: Anti-Chromatin 0.2 AI (0.0-0.9); Anti-Jo <0.2 AI (0.0-0.9); Anti-dsDNA Ab 1 IU/mL (0-9); SJOGREN'S Anti-SS-A test < 0.2 AI (0.0-0.9); SJOGREN'S Anti-SS-B test < 0.2 AI (0.0-0.9)
[2025-04-04 09:09] LABS: Calprotectin, Stool 39 ug/g (0-120)
[2025-04-04 12:09] LABS: ACCA 7 units (0-90); ALCA 12 units (0-60); AMCA 35 units (0-100); CMV Acute Antibody IgM < 30.0 AU/mL (0.0-29.9); Cytoplasmic Ab (C-ANCA) <1:20 titer (Neg:<1:20); IgG, Quant 938 mg/dL (586-1602); Immunoglobulin A 110 mg/dL (64-422); Immunoglobulin G, Subclass 1 551 mg/dL (248-810); Immunoglobulin G, Subclass 2 154 mg/dL (130-555); Immunoglobulin G, Subclass 3 15 mg/dL (15-102); Immunoglobulin G, Subclass 4 46 mg/dL (2-96); Perinuclear Ab (P-ANCA) <1:20 titer (Neg:<1:20)
== END 2025-03-30 16:02 | disposition home or self-care (01) ==
LOC: ED 13:36 → MS3 14:43
PROVIDERS: Internal Medicine Gastroenterology; Admitting Provider Family Medicine; Emergency Provider Emergency Medicine; PCP Family Medicine; Visit Provider Family Medicine
DX: R19.7 Diarrhea, unspecified (principal); I10 Essential (primary) hypertension; Z82.49 Family history of ischemic heart disease and other diseases of the circulatory system; Z86.718 Personal history of other venous thrombosis and embolism; E78.5 Hyperlipidemia, unspecified; Z86.711 Personal history of pulmonary embolism; R79.82 Elevated C-reactive protein (CRP); Z86.73 Personal history of transient ischemic attack (TIA), and cerebral infarction without residual deficits; Z95.1 Presence of aortocoronary bypass graft; Z99.89 Dependence on other enabling machines and devices; Z98.51 Tubal ligation status; Z90.49 Acquired absence of other specified parts of digestive tract; K21.9 Gastro-esophageal reflux disease without esophagitis; Z79.899 Other long term (current) drug therapy; R53.83 Other fatigue; R11.0 Nausea; N28.1 Cyst of kidney, acquired; I70.0 Atherosclerosis of aorta; R93.5 Abnormal findings on diagnostic imaging of other abdominal regions, including retroperitoneum; K86.89 Other specified diseases of pancreas
CPT/HCPCS: 36415; 74177; 74181; 76705; 80053; 81001; 82274; 82784; 82787; 83516; 83605; 83630; 83690; 83735; 83993; 85025; 85652; 86036; 86037; 86140; 86225; 86235; 86255; 86644; 86645; 86671; 87077; 87086; 87088; 87177; 87186; 87209; 87329; 87493; 87506; 96361; 96365; 96366; 96372; 99221; 99284; Q9967; A4216; G0378